=== PATIENT | male | born 1965 | race Caucasian/White ===

== ENCOUNTER 2024-01-27 10:14 | Outpatient (OUT) | payer OTHER, SELFPAY ==
[2024-01-27 11:47] LABS: Prostate Specific Antigen Scrn 2.13 ng/mL (<=4.00)
== END 2024-01-27 10:15 | disposition home or self-care (01) ==
LOC: LAB 10:14
PROVIDERS: PCP Internal Medicine; Visit Provider Urology
DX: Z12.5 Encounter for screening for malignant neoplasm of prostate (principal)
CPT/HCPCS: 36415; G0103

== ENCOUNTER 2024-02-17 08:55 | Outpatient (OUT) | payer OTHER, SELFPAY ==
--- NOTE | 2024-02-17 08:57 | ECG_ITS ---
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
--- NOTE | 2024-02-17 08:57 | XR_ITS ---
The [address] [address] Patient Name: VENITA HOFFMAN MRN: [id number] date: 1965 Sex: M Assigned Patient Location: [facility] Current Patient Location: [facility] Accession/Order Number: [id number] Exam Date: 02/17/2024 09:28 Report Date: 02/17/2024 11:14 At the request of: JARAD VALDIVIA Procedure: XR chest 2V EXAMINATION: XR chest 2V HISTORY: Preop exam COMPARISON: No relevant comparison available. FINDINGS: LUNGS: Hyperexpanded lungs. No appreciable infiltrates or mass. VASCULATURE: No increased pulmonary vasculature. PLEURA: No pneumothorax, effusion, or pleural thickening. CARDIAC: No cardiomegaly or cardiac silhouette abnormality. MEDIASTINUM: No visible mass or adenopathy. BONES: Mild kyphosis. No fracture or visible bone lesion. OTHER: Negative. XR/XR chest 2V IMPRESSION: 1. No acute cardiopulmonary process. Electronically authenticated by: GRISEL THOMAS Date: 02/17/2024 11:14
--- OUTSIDE RECORDS SUMMARY | 2024-02-17 09:08 | XMS_ITS | CCD ---
Author Organization [facility] Care Team Providers Care Business Analytics Analyst Name Role Phone Parth García Primary Care Provider [phone] PARTH GARCÍA Primary Care Unavailable OLEKSANDR HOOVER Attending Unavailable PARTH GARCÍA Primary Care Unavailable VENITA CONWAY Attending Unavailable BG HUMPHREY Admitting Unavailable BG HUMPHREY Attending Unavailable PARTH GARCÍA Primary Care Unavailable PARTH GARCÍA Primary Care Physician [phone] KERRI García Primary Care Provider [phone] MD Jarad Paulson Attending Provider Jarad Paulson Attending Unavailable Jarad Paulson Admitting Unavailable Parth García Primary Care Unavailable RICKY, DR CASTANON Primary Care Unavailable PAULSON ., DR ABRAHAM Attending Unavailable PAULSON ., DR ABRAHAM Consulting Unavailable PAULSON ., DR ABRAHAM Admitting Unavailable ROSARIO, ELIAS Consulting Unavailable RICKY, DR CASTANON Admitting Unavailable RICKY, DR CASTANON Attending Unavailable RICKY, DR CASTANON Consulting Unavailable RICKY, DR CASTANON Primary Care Unavailable ZIEBER, DR GRISEL Hendrickson Consulting Unavailable GARCÍA, DR CASTANON Primary Care Unavailable PAULSON ., DR ABRAHAM Attending Unavailable PAULSON ., DR ABRAHAM Consulting Unavailable PAULSON ., DR ABRAHAM Admapple Unavailable RICKY, DR CASTANON Primary Care Unavailable PAY ., DR TERRY Attending Unavailable PAY ., DR TERRY Admitting Unavailable ZIEBJACK, DR GRISEL Hendrickson Consulting Unavailable PAY ., DR TERRY Consulting Unavailable RICKY, DR CASTANON Primary Care Unavailable PAULSON ., DR ABRAHAM Attending Unavailable PAULSON ., DR ABRAHAM Consulting Unavailable PAULSON ., DR ABRAHAM Admitting Unavailable GALLAGHER, TARAH Consulting Unavailable RICKY, DR CASTANON Primary Care Unavailable PAULSON ., DR ABRAHAM Attending Unavailable PAULSON ., DR ABRAHAM Consulting Unavailable PAULSON ., DR ABRAHAM Admitting Unavailable GRIFFIN IITOM Consulting Unavailable YOUSUF FAGAN Consulting Unavailable FloryBrandy Unavailable Jarad PAULSON Attending Unavailable Jarad PAULSON Admitting Unavailable SHEA, Jarad Hendrickson Attending Unavailable SHEA, Jarad Hendrickson Attending Unavailable SHEA, Jarad Hendrickson Attending Unavailable SHEA, Jarad Hendrickson Attending Unavailable SHEA, Jarad Hendrickson Attending Unavailable Allergies Allergy Classification Reported Allergen(s) Allergy Type Date of Onset Reaction(s) Facility (1 source) corn extract Drug Allergy [facility] Repository (1 source) No Known Medication Allergies; Translations: [No Known Medication Allergies] Propensity to adverse reactions (disorder) [facility] Repository Medications Current Medications Medication Drug Class(es) Dates Sig (Normalized) Sig (Original) acetaminophen 325 mg / HYDROcodone bitartrate 5 mg oral tablet (2 sources) Opioid Agonist Start: 05-16-2019 End: 05-21-2019 take 1 tablet by mouth every six hours as needed for pain and pain, then take 2 tablets by mouth every six hours as needed for pain and pain HYDROcodone-acetami nophen (NORCO) 5-325 MG per tablet Indications: Calculus of gallbladder with cholecystitis without biliary obstruction, unspecified cholecystitis acuity Take 1 tablet by mouth every 6 hours as needed for Pain for up to 5 days. May take up to 2 tablets po every 6 hours as needed for pain. 20 tablet 0 05/16/2019 05/21/2019 Active Start: 05-16-2019 HYDROcodone-ac etaminophen (NORCO) 5-325 MG per tablet 1 tablet 24 hr alfuzosin hydrochloride 10 mg extended release oral tablet (2 sources) alpha-Adrenergic Nasrin Start: 02-03-2024 take 1 tablet by mouth once daily alfuzosin 10 mg ER Tab 10 mg = 1 tab(s), Oral, Daily, # 30 tab(s), Refills(s) 11, Pharmacy: [facility] #[id number], 180, cm, 02/03/24 8:10:00 EDT, Height/Length Dosing, 59, kg, 02/03/24 8:10:00 EDT, Weight Dosing Start Date: 02/03/24 Status: Ordered calcium chloride 0.0014 meq/ml / potassium chloride 0.004 meq/ml / sodium chloride 0.103 meq/ml / sodium lactate 0.028 meq/ml injectable solution (3 sources) Start: 05-16-2019 lactated ringers infusion 2 ml fentaNYL 0.05 mg/ml injection (2 sources) Opioid Agonist Start: 05-16-2019 fentaNYL (SUBLIMAZE) injection 50 mcg Start: 05-16-2019 fentaNYL (SUBL IMAZE) injection 25 mcg 2 ml metoclopramide 5 mg/ml prefilled syringe (1 source) Dopamine-2 Receptor Antagonist Start: 05-16-2019 End: 05-16-2019 metoclopramide (REGLAN) injection 10 mg 30 ml morphine sulfate 1 mg/ml injection (1 source) Opioid Agonist Start: 05-16-2019 morphine (PF) injection 1 mg 2 ml ondansetron 2 mg/ml injection (2 sources) Serotonin-3 Receptor Antagonist Start: 05-16-2019 End: 05-16-2019 ondansetron (ZOFRAN) injection 4 mg oxyCODONE hydrochloride 5 mg oral tablet (1 source) Opioid Agonist Start: 05-16-2019 End: 05-16-2019 oxyCODONE (ROXICODONE) immediate release tablet 5 mg predniSONE 20 mg oral tablet (1 source) Start: 05-15-2023 take 1 tablet by mouth every twelve hours predniSONE 20 MG 1 tablet Orally bid for 5 day(s) Apr, Active 3 ml sodium chloride 9 mg/ml injection (8 sources) Start: 05-16-2019 sodium chloride flush 0.9 % injection 10 mL sulfamethoxazole 800 mg / trimethoprim 160 mg oral tablet (2 sources) Dihydrofolate Reductase Inhibitor Antibacterial, Sulfonamide Antimicrobial Start: 02-03-2024 End: 02-17-2024 Bactrim D.S. 800 mg-160 mg Tab 1 tab(s), Oral, BID for 2 week(s), 28 tab(s), Refill(s) 0, [facility] #[id number], 180, cm, 02/03/24 8:10:00 EDT, Height/Length Dosing, 59, kg, 02/03/24 8:10:00 EDT, Weight Dosing Start Date: 02/03/24 Stop Date: 02/17/24 Status: Ordered Completed/Discontinued Medications Medication Drug Class(es) Dates Sig (Normalized) Sig (Original) acetaminophen 325 mg oral tablet (1 source) Start: 05-16-2019 End: 05-16-2019 acetaminophen (TYLENOL) tablet 650 mg ceFAZolin (ANCEF) 2 g in dextrose 5 % 100 mL IVPB (1 source) Start: 05-16-2019 End: 05-16-2019 ceFAZolin (ANCEF) 2 g in dextrose 5 % 100 mL IVPB ciprofloxacin 500 mg oral tablet (4 sources) Quinolone Antimicrobial Start: 01-12-2024 take 1 tablet by mouth once daily Cipro 500 mg Tab 500 mg = 1 tab(s), Oral, Daily, Take 1 tablet the day before the procedure and 1 tablet after the procedure, # 2 tab(s), Refills(s) 0, Pharmacy: [facility] #[id number], 180, cm, 01/07/23 8:59:00 EDT, Height/Length Dosing, 59, kg, 01/07/23 8:59:00 EDT, Weight Dosing Start Date: 01/12/24 Status: Ordered Start: 10-07-2022 take 1 tablet by greer th once daily Cipro 500 mg Tab 500 mg = 1 tab(s), Oral, Daily, Take 1 tablet the day before the procedure and 1 tablet after the procedure, # 2 tab(s), Refills(s) 0, Pharmacy: [facility] #[id number] Start Date: 10/07/22 Status: Ordered Start: 05-16-2019 End: 05-23-2019 take 1 tablet by mouth twice daily ciprofloxacin (CIPRO) 500 MG tablet Take 1 tablet by mouth 2 times daily for 7 days 14 tablet 0 05/16/2019 05/23/2019 Active dimenhyDRINATE 50 mg oral tablet (1 source) Start: 05-16-2019 End: 05-16-2019 dimenhyDRINATE (DRAMAMINE) tablet 50 mg indocyanine green (IC-GREEN) syringe 7.5 mg (1 source) Start: 05-16-2019 End: 05-16-2019 indocyanine green (IC-GREEN) syringe 7.5 mg 100 ml levoFLOXacin 5 mg/ml injection (1 source) Quinolone Antimicrobial Start: 05-16-2019 End: 05-16-2019 levofloxacin (LEVAQUIN) 500 MG/100ML infusion 500 mg triamcinolone acetonide 40 mg/ml injectable suspension (1 source) Corticosteroid Start: 05-15-2023 Kenalog-40 Apr, 40 mg Problems Active Problems Problem Classification Problem Date Documented Da te Episodic/Chronic Abdominal pain (1 source) Unspecified abdominal pain; Translations: [UNSPECIFIED ABDOMINAL PAIN] Onset: 02-15-2023 Episodic Biliary tract disease (2 sources) Calculus of gallbladder with cholecystitis; Translations: [Biliary calculus] Onset: 05-16-2019 05-16-2019 Episodic Calculus of urinary tract (3 sources) Kidney stone; Translations: [Calculus of kidney] Onset: 02-03-2024 Episodic Cancer of bladder (3 sources) Malignant tumor of urinary bladder; Translations: [Malignant neoplasm of bladder, unspecified] Onset: 02-03-2024 Chronic Cancer of bladder (8 sources) History of malignant neoplasm of bladder; Translations: [Personal history of malignant neoplasm of bladder] Onset: 10-22-2022 Episodic Cancer; other and unspecified primary (5 sources) H/O: malignant neoplasm 08-03-2019 Episodic Genitourinary congenital anomalies (3 sources) Double ureter; 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] Onset: 02-03-2024 Chronic Genitourinary symptoms and ill-defined conditions (12 sources) Microscopic hematuria; Translations: [Asymptomatic microscopic hematuria] Onset: 12-24-2022 08-03-2019 Episodic Hyperplasia of prostate (20 sources) Benign prostatic hypertrophy with outflow obstruction; Translations: [Prostate nodule] Onset: 10-15-2022 08-03-2019 Chronic Nausea and vomiting (4 sources) Nausea; Translations: [NAUSEA] Onset: 02-11-2023 Episodic Nephritis; nephrosis; renal sclerosis (3 sources) Atrophy of kidney; Translations: [Atrophy of kidney (terminal)] Onset: 02-03-2024 Chronic Other aftercare (1 source) Other tank builder and erector (current) drug therapy; Translations: [OTH PERSONAL DEVELOPMENT EDUCATOR CURRENT DRUG THERAPY] Onset: 02-15-2023 Episodic Other screening for suspected conditions (not mental disorders or infectious disease) (9 sources) Elevated prostate specific antigen [PSA]; Translations: [Raised prostate specific antigen] Onset: 12-03-2022 Episodic Poisoning by nonmedicinal substances (1 source) Toxic effect of venom of bees, undetermined, initial encounter Episodic Screening and history of mental health and substance abuse codes (1 source) Personal history of nicotine dependence; Translations: [PERSONAL HISTORY OF NICOTINE DEPEND] Onset: 02-22-2023 Episodic Unclassified (3 sources) Asymptomatic microscopic hematuria 01-06-2023 Urinary tract infections (1 source) Cystitis, unspecified without hematuria; Translations: [CYSTITIS UNS WITHOUT HEMATURIA] Onset: 02-15-2023 Episodic Past or Other Problems Problem Classification Problem Date Documented Da te Episodic/Chronic Other non-traumatic joint disorders (4 sources) Pain in left shoulder; Translations: [PAIN IN LEFT SHOULDER] Onset: 11-15-2022 Episodic Results Test Name Value Interpretation Reference Range Facil ity UroVysion Fish and Urine Cyt o ([facility])on 02-10-2024 UVFISH & UC Diagnosis Info Invalid Interpretation Code [facility] Comment on above: Result Comment: A:Ur ine,Urine:Voided Diagnosis Summary - Diagnosis Summary - The UroVysion FISH study detected a positive profile. UroVysion FISH evaluates chromosomes 3, 7, 17, and 9p21 for aneuploid and deletion events associated with urothelial cell carcinoma. 117 cells were analyzed in this evaluation. Evidence of aneuploidy in at least 76 cells were found. These findings should be correlated with cytology and cystoscopy results.* Microscopic Notes - Microscopic Notes - Abnormal cells 9p21 deletions: 0 Abnormal cells aneploid events: 76 Total cells analyzed: 117 Hematuria: Gross Description Site ID:A color dark Yellow fixative Alcohol Received 110 mls of clear dark yellow fluid with the patient's name and, Urine on the vial. Electronically signed by : on: 02/10/2024 12:29:57 Performed By: #### 1 [id number] #### [facility] [address] [place] [address] Consent for Procedure/Surger yon 02-08-2024 Consent for Procedure/Surgery [id number] 5#[id number] Normal [facility] Ambulatory Visit Summaryon 0 02-03-2024 Ambulatory Visit Summary VENITA ROSENBERG :1965 Visit Date:02/03/2024 Ambulatory Visit Instructions Your Diagnosis Bladder cancer Elevated PSA BPH with urinary obstruction Prostate nodule Kidney stone Renal atrophy Duplicated renal collecting system Tests Performed MRI Pelvis (Soft Tissue) w/ + w/o contrast -- Results Pending -- Please visit your patient portal for your results or contact your primary care physician. Your Care Team Attending Physician - SHEA JARA, Jarad Hendrickson Primary Care Physician - PARTH GARCÍA MD This Is Your Medications List alfuzosin (alfuzosin 10 mg ER Tab) sulfamethoxazole-tri methoprim (Bactrim D.S. 800 mg-160 mg Tab) Contact prescribing physician if questions or concerns ciprofloxacin (Cipro 500 mg Tab) Procedures Performed Flexible cystoscopy (02/03/2024), Transrectal needle biopsy of prostate (12/22/2022), Cystoscopy (10/22/2022), Cystoscopy (10/23/2021), Cystoscopy (09/10/2020), Cystoscopy (09/25/2019), Cystoscopy (09/05/2018), Transrectal biopsy of prostate using ultrasound (US) guidance (08/19/2015), Cystoscopic removal of ureteric stent (05/30/2012), Cystoscopy and transurethral resection of bladder tumour (05/18/2012). Discharge Vitals Heart Rate (Peripheral) 88 Blood Pressure 126/86 Height 180 cm Height 71 in Weight 59 kg Weight 129.8 lb BMI 18.21 What to do next Scheduled Follow-Up Appointments Tuesday 9:00 AM EDT With: Where: [facility] [address] [place] [address]- \.br\ You Need to Schedule the Following Appointments\.br \ Follow Up with SHEA JARA, Jarad Hendrickson, URL When: \.br\ Where:\.br\ [facility]\.br\ [place] [address]-\.br\ Medications\.br\ What How Much When Instructions\.br \ New alfuzosin (alfuzosin 10 mg ER Tab) 1 Tablets By Mouth Every day Refills: 11 Pickup at [facility] #[id number]\.br\ New sulfamethoxazole -trimethoprim (Bactrim D.S. 800 mg-160 mg Tab) 1 Tablets By Mouth 2 times a day Duration: 2 Weeks Pickup at [facility] #[id number]\.br\ Unchanged ciprofloxacin (Cipro 500 mg Tab) 1 Tablets By Mouth Every day Take 1 tablet the day before the procedure and 1 tablet after the procedure Contact prescribing physician if questions or concerns \.br\ Pharmacy Information\.br\ [facility] #[id number]: [address] [place], [place] [id number] [phone]\.br\ Medications and Immunizations Administered\.br \ Given\.br\ lidocaine Top 2% Gel w/Appl 6 mL, 6 mL, Topical. For:\.br\ Allergies\.br\ No Known Medication Allergies\.br\ Problems\.br\ Ongoing - Any problem that you are currently receiving treatment for.\.br\ Asymptomatic microscopic hematuria\.br\ Bladder cancer\.br\ BPH with urinary obstruction\.br\ Duplicated renal collecting system\.br\ Elevated PSA\.br\ Enlarged prostate with urinary obstruction\.br\ Kidney stone\.br\ Microscopic hematuria\.br\ Personal history of bladder cancer\.br\ Prostate nodule\.br\ Renal atrophy\.br\ Patient Survey\.br\ You may receive a survey via text or e-mail asking about your office visit. Please share your experience with us by completing your survey. We appreciate your feedback and thank you for choosing us for your care.\.br\ Education Materials\.br\ Transurethral Resection of Bladder Tumor\.br\ \.br\ Transurethral resection of a bladder tumor is the removal (resection) of cancerous tissue (tumor) from the inside wall of the bladder. The bladder is the organ that holds urine. The tumor is removed through the tube that carries urine out of the body (urethra).\.br\ In a transurethral resection, a thin telescope with a light, a tiny camera, and an electric cutting edge (resectoscope) is passed through the urethra. In men, the opening of the urethra is at the end of the penis. In women, it is just above the opening of the vagina.\.br\ Tell a health care provider about:\.br\ ? \.br\ Any allergies you have.\.br\ ? \.br\ All medicines you are taking, including vitamins, herbs, eye drops, creams, and nyou-oas-gmahlju medicines.\.br\ ? \.br\ Any problems you or family members have had with anesthetic medicines.\.br\ ? \.br\ Any bleeding problems you have.\.br\ ? \.br\ Any surgeries you have had.\.br\ ? \.br\ Any medical conditions you have, including recent urinary tract infections.\.br\ ? \.br\ Whether you are or may be .\.br\ What are the risks?\.br\ Generally, this is a safe procedure. However, problems may occur, including:\.br\ ? \.br\ Infection.\.br\ ? \.br\ Bleeding.\.br\ ? \.br\ Allergic reactions to medicines.\.br\ ? \.br\ Damage to nearby structures or organs.\.br\ ? \.br\ Difficulty urinating from blockage of the urethra or not being able to urinate (urinary retention).\.br\ ? \.br\ Deep vein thrombosis. This is a blood clot that can develop in your leg.\.br\ ? \.br\ Recurring cancer.\.br\ What happens before the procedure?\.br\ When to stop eating and drinking\.br\ Follow instructions from your health care provider about what you may eat and drink before your procedure. These may include:\.br\ ? \.br\ 8 hours before your procedure\.br\ ? \.br\ Stop eating most foods. Do not eat meat, fried foods, or fatty foods.\.br\ ? \.br\ Eat only light foods, such as toast or crackers.\.br\ ? \.br\ All liquids are okay except energy drinks and alcohol.\.br\ ? \.br\ 6 hours before your procedure\.br\ ? \.br\ Stop eating.\.br\ ? \.br\ Drink only clear liquids, such as water, clear fruit juice, black coffee, plain tea, and sports drinks.\.br\ ? \.br\ Do not drink energy drinks or alcohol.\.br\ ? \.br\ 2 hours before your procedure\.br\ ? \.br\ Stop drinking all liquids.\.br\ ? \.br\ You may be allowed to take medicines with small sips of water.\.br\ Medicines\.br\ Ask your health care provider about:\.br\ ? \.br\ Changing or stopping your regular medicines. This is especially important if you are taking diabetes medicines or blood thinners.\.br\ ? \.br\ Taking medicines such as aspirin and ibuprofen. These medicines can thin your blood. Do not take these medicines unless your health care provider tells you to take them.\.br\ ? \.br\ Taking cqsq-wym-mtuktry medicines, vitamins, herbs, and supplements.\.br \ General instructions\.br \ ? \.br\ If you will be going home right after the procedure, plan to have a responsible adult:\.br\ ? \.br\ Take you home from the hospital or clinic. You will not be allowed to drive.\.br\ ? \.br\ Care for you for the time you are told.\.br\ ? \.br\ Ask your health care provider what steps will be taken to help prevent infection. These steps may include:\.br\ ? \.br\ Washing skin with a germ-killing soap.\.br\ ? \.br\ Taking antibiotic medicine.\.br\ ? \.br\ Do not use any products that contain nicotine or tobacco for at least 4 weeks before the procedure. These products include cigarettes, chewing tobacco, and vaping devices, such as e-cigarettes. If you need help quitting, ask your health care provider.\.br\ What happens during the procedure?\.br\ ? \.br\ An IV will be inserted into one of your veins.\.br\ ? \.br\ You will be given one or more of the following:\.br\ ? \.br\ A medicine to help you relax (sedative).\.br\ ? \.br\ A medicine that is injected into your spine to numb the area below and slightly above the injection site (spinal anesthetic).\.br \ ? \.br\ A medicine that is injected into an area of your body to numb everything below the injection site (regional anesthetic).\.br \ ? \.br\ A medicine to make you fall asleep (general anesthetic).\.br \ ? \.br\ Your legs will be placed in foot rests (stirrups) to open your legs and bend your knees.\.br\ ? \.br\ The resectoscope will be passed through your urethra and into your bladder.\.br\ ? \.br\ The part of your bladder with the tumor will be resected by the cutting edge of the resectoscope.\.b r\ ? \.br\ Fluid will be passed to rinse out the cut tissues (irrigation).\.b r\ ? \.br\ The resectoscope will then be taken out.\.br\ ? \.br\ A small, thin tube (catheter) will be passed through your urethra and into your bladder. The catheter will drain urine into a bag outside of your body.\.br\ The procedure may vary among health care providers and hospitals.\.br\ What happens after the procedure?\.br\ ? \.br\ Your blood pressure, heart rate, breathing rate, and blood oxygen level will be monitored until you leave the hospital or clinic.\.br\ ? \.br\ You may continue to receive fluids and medicines through an IV.\.br\ ? \.br\ You will be given pain medicine to relieve pain.\.br\ ? \.br\ You will have a catheter to drain your urine.\.br\ ? \.br\ The amount of urine will be measured. If you have blood in your urine, your bladder may be rinsed out by passing fluid through your catheter.\.br\ [facility] Consent for Procedure/Surger yon 02-03-2024 Consent for Procedure/Surgery [id number] 1.00TIFF Normal [facility] Insurance Correspondenceon 0 02-03-2024 Insurance Correspondence [id number] 9#1.00TIFF Normal [facility] Patient Educationon 02-03-20 Patient Education Oncology Transurethral Resection of Bladder Tumor Transurethral resection of a bladder tumor is the removal (resection) of cancerous tissue (tumor) from the inside wall of the bladder. The bladder is the organ that holds urine. The tumor is removed through the tube that carries urine out of the body (urethra). In a transurethral resection, a thin telescope with a light, a tiny camera, and an electric cutting edge (resectoscope) is passed through the urethra. In men, the opening of the urethra is at the end of the penis. In women, it is just above the opening of the vagina. Tell a health care provider about: ? Any allergies you have. ? All medicines you are taking, including vitamins, herbs, eye drops, creams, and kqst-leh-cdebvjn medicines. ? Any problems you or family members have had with anesthetic medicines. ? Any bleeding problems you have. ? Any surgeries you have had. ? Any medical conditions you have, including recent urinary tract infections. ? Whether you are or may be . What are the risks? Generally, this is a safe procedure. However, problems may occur, including: ? Infection. ? Bleeding. ? Allergic reactions to medicines. ? Damage to nearby structures or organs. ? Difficulty urinating from blockage of the urethra or not being able to urinate (urinary retention). ? Deep vein thrombosis. This is a blood clot that can develop in your leg. ? Recurring cancer. What happens before the procedure? When to stop eating and drinking Follow instructions from your health care provider about what you may eat and drink before your procedure. These may include: ? 8 hours before your procedure ? Stop eating most foods. Do not eat meat, fried foods, or fatty foods. ? Eat only light foods, such as toast or crackers. ? All liquids are okay except energy drinks and alcohol. ? 6 hours before your procedure ? Stop eating. ? Drink only clear liquids, such as water, clear fruit juice, black coffee, plain tea, and sports drinks. ? Do not drink energy drinks or alcohol. ? 2 hours before your procedure ? Stop drinking all liquids. ? You may be allowed to take medicines with small sips of water. Medicines Ask your health care provider about: ? Changing or stopping your regular medicines. This is especially important if you are taking diabetes medicines or blood thinners. ? Taking medicines such as aspirin and ibuprofen. These medicines can thin your blood. Do not take these medicines unless your health care provider tells you to take them. ? Taking bplt-gkw-lqhbzqc medicines, vitamins, herbs, and supplements. General instructions ? If you will be going home right after the procedure, plan to have a responsible adult: ? Take you home from the hospital or clinic. You will not be allowed to drive. ? Care for you for the time you are told. ? Ask your health care provider what steps will be taken to help prevent infection. These steps may include: ? Washing skin with a germ-killing soap. ? Taking antibiotic medicine. ? Do not use any products that contain nicotine or tobacco for at least 4 weeks before the procedure. These products include cigarettes, chewing tobacco, and vaping devices, such as e-cigarettes. If you need help quitting, ask your health care provider. What happens during the procedure? ? An IV will be inserted into one of your veins. ? You will be given one or more of the following: ? A medicine to help you relax (sedative). ? A medicine that is injected into your spine to numb the area below and slightly above the injection site (spinal anesthetic). ? A medicine that is injected into an area of your body to numb everything below the injection site (regional anesthetic). ? A medicine to make you fall asleep (general anesthetic). ? Your legs will be placed in foot rests (stirrups) to open your legs and bend your knees. ? The resectoscope will be passed through your urethra and into your bladder. ? The part of your bladder with the tumor will be resected by the cutting edge of the resectoscope. ? Fluid will be passed to rinse out the cut tissues (irrigation). ? The resectoscope will then be taken out. ? A small, thin tube (catheter) will be passed through your urethra and into your bladder. The catheter will drain urine into a bag outside of your body. The procedure may vary among health care providers and hospitals. What happens after the procedure? ? Your blood pressure, heart rate, breathing rate, and blood oxygen level will be monitored until you leave the hospital or clinic. ? You may continue to receive fluids and medicines through an IV. ? You will be given pain medicine to relieve pain. ? You will have a catheter to drain your urine. ? The amount of urine will be measured. If you have blood in your urine, your bladder may be rinsed out by passing fluid through your catheter. ? You will be encouraged to walk as soon as y (more content not included)... Normal [facility] UroVysion Fish and Urine Cyt o ([facility])on 02-03-2024 [facility] Method of Extraction Voided Normal [facility] Comment on above: Performed By: #### 1 [id number] #### [facility] Laboratory [address] [place] [address] [facility] Number of Jars 1 Invalid Interpretation Code [facility] Comment on above: Performed By: #### 1 [id number] #### [facility] Laboratory [address] [place] [address] [facility] Specimen Urine Normal [facility] Comment on above: Performed By: #### 1 [id number] #### [facility] Laboratory [address] [place] [address] [facility] Type of Service Technical Only Normal [facility] Comment on above: Performed By: #### 1 [id number] #### [facility] Laboratory [address] [place] [address] Urology Office/Clinic Noteon 02-03-2024 Urology Office/Clinic Note Chief Complaint Cysto HPI Staff Cystoscopy with FISH/Cytology. Abx taken Dx: personal hx of bladder cancer, prostate nodule, elevated PSA and asymptomatic microhematuria History of Present Illness Tests reviewed: Reviewed PSA. I have reviewed the previous health record information and history for this patient from Dr. Paulson. I have reviewed and verified the staff HPI to be accurate for this encounter. There have been no associated fever, chills, flank pain, or blood in the urine. Denies any urinary infections since last encounter. Review of Systems PHQ Score Initial Depression Screen Score: 0 SCORE ROS - Provider Constitutional: denies weight loss, denies hot flashes. Eyes: denies eye problems. Gastrointestinal: denies nausea, denies vomiting. Cardiovascular: denies chest pain or angina. Integumentary: no dryness Musculoskeletal: denies musculoskeletal symptoms. ENMT: denies otolaryngeal symptoms. Respiratory: no shortness of breath. Heme/Lymph: denies easy bleeding tendency, denies easy bruising tendency. Psychiatric: no confusion, no anxiety. Genitourinary: See HPI. Physical Exam Vitals & Measurements HR: 88(Peripheral) BP: 126/86 HT: 71 in HT: 180 cm WT: 59 kg WT: 129.8 lb BMI: 18.21 General Appearance: alert, no distress, well nourished, well developed male. Prostate: estimated weight 35 gms, bonafide nodule at the R base to mid. Procedure Operative Information Anesthesia Type: Local Procedure: Local Cystoscopy Complications: None Surgical risks, benefits, details of the procedure have been explained to the patient. Full informed consent has been obtained. Intraoperative Information Prepped: Patient is brought back to the endoscopy suite. Patient is placed in supine position. Patient prepped in the usual fashion with Betadine solution. 2% Xylocaine Jelly is placed per Urethra. After waiting several minutes, the Cystoscope is introduced. The Urethra is: Normal The Prostatic Urethra is: bilobar obstruction. The Bladder: diffuse irritation, retroflexion tumor adjacent to the bladder neck on pt's ride side, measuring 2-3 cm., Trabeculated: None (0) The Ureteral orifices: Show efflux of clear urine. Specimens Removed: Voided specimen sent for FISH and Cytology test Removal: Cystoscope is removed. The patient tolerated it well. Postoperative Information Patient is discharged home with antibiotic coverage. Follow up arranged. Assessment/Plan 1. Bladder cancer (C67.9: Malignant neoplasm of bladder, unspecified) Uncle has hx of bladder and colon CA. Dx w/ Barker Syndrome. S/p initial TURBT 05/18/2012. 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 Detrusor muscle is present and neg for involvement by tumor. Last Cysto 10/22/22 neg for recurrence. FISH/cytology 09/2022 - cytology suspicious for papillary urothelial neoplasm. FISH positive. CT AP wo IV con 12/24/22 [facility] - Mild circumferential thickened and trabeculated appearance of the urinary bladder wall presumably related to the chronic urinary bladder outlet obstruction in combination with partial distention. S/p cysto, rigid L ureteral dilation, L urs, L pyeloscopy, L renal wash for cytology, R rigid ureteral dilation, R urs, R pyeloscopy, and R renal wash for cytology 02/10/23. Renal washings neg. Cysto IO today without complications. Voided specimen sent for FISH/cytology. Pt to complete prophy abx. Reference procedural section for findings. -Will schedule Cysto with TURBT. The procedure risks, benefits, details, and treatment alternatives have been discussed with the patient. These include bleeding -- sometimes to the point of hemorrhaging, infection, risk of bladder perforation, recurrence of bladder tumor in 60-70% of patients, need for indwelling catheter for a variable amount of time, as well as the rare risk of needing an open operation to repair the bladder, among others. Additional therapy as well as follow-up bladder evaluation will most likely be required. Full informed consent has been obtained. Will order General anesthesia. 2. Elevated PSA (R97.20: Elevated prostate specific antigen [PSA]) PSA: 10/16/21 - 1.86 10/15/22 - 1.73 01/27/24 - 2.13 TRUS/bx 2014. MRI of prostate 12/03/22 PI-RADS 4 and PI-RADS 5 lesions. TRUS/bx 12/22/22 neg. Given rise in PSA, will repeat MRI of prostate. Will proceed with TRUS/bx following MRI. -Schedule MRI of prostate -Will schedule TRUS of Prostate with Biopsy, possible fusion under MAC pending MRI. The procedural risks, benefits, details, and treatment alternatives have been discussed with the patient. These include minimal to severe bleeding, infection, blood in the semen, inability to urinate, and severe infection requiring hospitalization and IV antibiotics, among others. Full informed consent has been obtained. Will order Local anesthesia. 3. BPH with urinary obstruction (N40.1: Benign prostatic hyperplasia with lower urinary tract symptoms) Complaints of weak s (more content not included)... Normal [facility] Comment on above: Result Comment: Elec tronically Signed By: Jarad PAULSON MD\.br\Date and Time Signed: 02/03/24 08:45 EDT\.br\Electronically Co-Signed By: Leonie Garcia\.br\Date and Time Co-Signed: 02/03/24 08:41 EDT Lab Reportson 01-30-2024 Lab Reports [id number] #1.00TIFF [facility] Reminderson 01-12-2024 Reminders - From: Anna Sigala To: LEENA Paulson; Sent: 01/12/2024 10:49:46 EDT Show up: 10/27/2024 10:49:00 EST Subject: Cysto/fish/cytol/psa /chani Due Date/Time: 11/19/2024 10:49:00 EST Reminder/Recall Patient is due in January 2025 for 1 year cysto/fish/cytol/PSA /chani (bt ck) [facility] Reminders - From: Anna Sigala To: EU - Recalls Paulson; Cc: Anna Sigala; Sent: 03/07/2023 09:57:33 EDT Show up: 12/26/2023 09:57:00 EDT Subject: Cysto/FISH/cytol Due Date/Time: 01/16/2024 09:57:00 EDT Reminder/Recall Patient is due in January 2024 for 1 year cysto/fish/cytol/PSA /CHANI (bt ck) l/m on cell vm.LG Patient called back, sched for 02/07/24 in [place] office.LG Normal [facility] Pathology Noteon 02-17-2023 Pathology Note [id number] #1.00CD:127 Normal [facility] CBC W MANUAL DIFFon 02-12-20 23 ATYPICAL LYMPH # Normal [facility] Comment on above: Performed By: #### C MONSTER ####[facility] [address] [place], [place] [address]Dr. Yordan Holt ATYPICAL LYMPH % Normal [facility] Comment on above: Performed By: #### C MONSTER ####[facility] [address] [place], [place] [address]Dr. Erikalan Holt BAND # Normal 0.0-0.3 [facility] Comment on above: Performed By: #### C MONSTER ####[facility] [address] [place] [address]Dr. Yilan Holt BAND % Normal 0-5 [facility] Comment on above: Performed By: #### C MONSTER ####[facility] [address] [place] [address]Dr. Erikalan Holt BASOM # 0.00 103/ul Normal 0.00-0.10 [facility] Comment on above: Performed By: #### C MONSTER ####[facility] [address] [place] [address]Dr. Yordan Holt BASOM % 0.0 % Critically low 0.2-2.0 The [facility] Comment on above: Performed By: #### C MONSTER ####[facility] [address] [place] [id number]. Yordan Holt BLAST # Normal [facility] Comment on above: Performed By: #### C BCMAN ####[facility] [address] [place] [id number]. Yordan Holt BLAST % Normal [facility] Comment on above: Performed By: #### C BCMAN ####[facility] [address] [place] [address]Dr. Yordan Holt CORRECTED WBC Normal 4.0-11.0 [facility] Comment on above: Performed By: #### C BCSARINA ####[facility] [address] [place] [address]Dr. Yordan Holt EOS # 0.00 103/ul Normal 0.00-0.70 [facility] Comment on above: Performed By: #### C BCSARINA ####[facility] [address] [place], [place] [address]Dr. Yordan Holt EOS% 0.0 % Critically low 0.9-7.0 [facility] Comment on above: Performed By: #### C BCSARINA ####[facility] [address] [place], [place] [address]Dr. Yordan Holt HCT 46.7 % Normal 42.0-54.0 [facility] Comment on above: Performed By: #### C BCSARINA ####[facility] [address] [place], [place] [address]Dr. Yordan Holt HGB 16.3 g/dl Normal 14.0-18.0 [facility] Comment on above: Performed By: #### C BCSARINA ####[facility] [address] [place], [place] [address]Dr. Yordan Holt LYMPHM # 0.53 103/ul Critically low 1.20-3.80 The [facility] Comment on above: Performed By: #### C BCSARINA ####[facility] [address] [place], [place] [address]Dr. Yordan Holt LYMPHM% 4.0 % Critically low 20.5-60.0 [facility] Comment on above: Performed By: #### C MONSTER ####[facility] [address] [place] [id number]. Yordan Holt MCH 30.9 pg Normal 25.9-34.0 [facility] Comment on above: Performed By: #### C MONSTER ####[facility] [address] [place], [place] [address]Oz. Yordan Holt MCHC 34.9 g/dl Normal 29.9-35.2 [facility] Comment on above: Performed By: #### C MONSTER ####[facility] [address] [place] [id number]. Yordan Holt MCV 88.6 fL Normal 80.0-94.0 [facility] Comment on above: Performed By: #### C MONSTER ####[facility] [address] [place] [id number]. Yordan Jonathon METAMYELOCYTE # Normal [facility] Comment on above: Performed By: #### C MONSTER ####[facility] [address] [place] [id number]. Yordan Holt METAMYELOCYTE % Normal [facility] Comment on above: Performed By: #### C MONSTER ####[facility] [address] [place] [id number]. Erikaperry Holt MONOM# 0.53 103/ul Normal 0.30-0.80 [facility] Comment on above: Performed By: #### Anat HOOK ####[facility] [address] [place] [id number]. Yordan Holt MONOM% 4.0 % Normal 1.7-12.0 [facility] Comment on above: Performed By: #### C MONSTER ####[facility] [address] [place], [place] [id number]. Yordan Holt MPV 9.2 fL Critically low 9.5-13.5 The [facility] Comment on above: Performed By: #### C MONSTER ####[facility] [address] [place] [address]Dr. Yordan Holt MYELOCYTE # Normal [facility] Comment on above: Performed By: #### C MONSTER ####[facility] [address] [place], [place] [address]Zl. Yordan Holt MYELOCYTE % Normal [facility] Comment on above: Performed By: #### C MONSTER ####[facility] [address] [place], [place] [address]Mz. Yordan Holt NRBC Normal [facility] Comment on above: Performed By: #### C MONSTER ####[facility] [address] [place], [place] [address]Sl. Yordan Holt PLT 205 103/ul Normal 150-450 [facility] Comment on above: Performed By: #### C MONSTER ####[facility] [address] [place], [place] [address]Oz. Yordan Holt RBC 5.27 106/ul Normal 4.70-6.10 [facility] Comment on above: Performed By: #### C MONSTER ####[facility] [address] [place], [place] [address]Tj. Yordan Holt RDW 11.7 % Normal 11.0-15.0 [facility] Comment on above: Performed By: #### C MONSTER ####[facility] [address] [place], [place] [address]Ko. Yordan Holt SEG # 12.24 103/ul Critically high 1.40-6.50 [facility] Comment on above: Performed By: #### C MONSTER ####[facility] T[address] [place], [place] [address]Xj. Yordan Holt SEG % 92.0 % Critically high 43.0-75.0 [facility] Comment on above: Performed By: #### C MONSTER ####[facility] T[address] [place], [place] [address]Oo. Yordan Holt WBC 13.3 103/ul Critically high 4.0-11.0 The [facility] Comment on above: Performed By: #### C MONSTER ####[facility] [address] [place] [phone]. Yordan Holt CULTURE URINEon 02-11-2023 CULTURE URINE Culture Observations: NO GROWTH. Normal [facility] Comment on above: Performed By: #### U RCX #### [facility] Laboratory [address] [place] [address] [address] Yordan Holt ER URINE PROFILEon 3 Bilirubin Ql (U) Negative Normal NEGATIVE [facility] Comment on above: Performed By: #### U MICRO, ERUR ####[facility] [address] [place] [address]DrJorge Alberto Holt Clarity (U) CLOUDY Abnormal CLEAR [facility] Comment on above: Performed By: #### U MICRO, ERUR ####[facility] [address] [place], [place] [address]Dr. Yordan Holt Color (U) YELLOW Normal YELLOW [facility] Comment on above: Performed By: #### U MICRO, ERUR ####[facility] [address] [place] [address]DrJorge Alberto RICKSAHD A micrscopic examination will be performed if indicated. Normal [facility] Comment on above: Performed By: #### U MICRO, ERUR ####[facility] [address] [place], [place] [address]Dr. Yordan Holt Glucose Ql (U) Negative Normal NEGATIVE The [facility] Comment on above: Performed By: #### U MICRO, ERUR ####[facility] [address] [place], [place] [address]Dr. Yordan Holt Hemoglobin Ql (U) LARGE Abnormal NEGATIVE The [facility] Comment on above: Performed By: #### U MICRO, ERUR ####[facility] [address] [place] [address]Dr. Yordan Holt Ketones Ql (U) 15 mg/dl Abnormal NEGATIVE The [facility] Comment on above: Performed By: #### U MICRO, ERUR ####[facility] [address] [place], [place] [address]Dr. Yordan Holt LEUKOCYTES MODERATE Abnormal NEGATIVE [facility] Comment on above: Performed By: #### U MICRO, ERUR ####[facility] [address] [place] [address]Dr. Yordan Holt Nitrite Ql (U) Negative Normal NEGATIVE The [facility] Comment on above: Performed By: #### U MICRO, ERUR ####[facility] [address] [place] [address]Dr. Yordan Holt pH (U) 6.0 [pH] Normal 5-9 [facility] Comment on above: Performed By: #### U MICRO, ERUR ####[facility] [address] [place] [address]Dr. Yordan Holt Protein (U) [Mass/Vol] 100 mg/dL Abnormal NEGATIVE/ TRACE [facility] Comment on above: Performed By: #### U MICRO, ERUR ####[facility] [address] [place] [address]Dr. Yordan Holt SPEC GRAVITY 1.020 Normal 1.005-<=1.025 [facility] Comment on above: Performed By: #### U MICRO, ERUR ####[facility] [address] [place] [address]Dr. Yordan Holt UR MICRO IND INDICATED Normal [facility] Comment on above: Performed By: #### U MICRO, ERUR ####[facility] [address] [place] [address]Dr. Yordan Holt Urobilinogen Qn (U) 1.0 {Ritu'U}/dL Normal 0.2 - 1. 0 [facility] Comment on above: Performed By: #### U MICRO, ERUR ####[facility] [address] [place] [address]Dr. Yordan Holt LIPASEon 02-11-2023 Lipase [Catalytic activity/Vol] 146.0 U/L Normal 73.0-393.0 [facility] Comment on above: Performed By: #### L IPA, CMP #### [facility] [address] [place] [address] [address] Yordan Holt Operative Reporton 3 Operative Report [id number] #1.00CD:127 Normal [facility] PROF 14(COMP METB)on 023 Albumin [Mass/Vol] 3.9 g/dL Normal 3.4-5.0 [facility] Comment on above: Performed By: #### L IPA, CMP #### [facility] [address] [place] [address] [address] Yordan Holt Albumin/Globulin [Mass ratio] 1.0 {ratio} Normal [facility] Comment on above: Performed By: #### L IPA, CMP #### [facility] [address] [place] [address] [address] Yordan Holt ALP [Catalytic activity/Vol] 79 U/L Normal 46-116 [facility] Comment on above: Performed By: #### L IPA, CMP #### [facility] [address] [place] [address] Dr. Yordan Holt ALT [Catalytic activity/Vol] 22 U/L Normal 16-63 [facility] Comment on above: Performed By: #### L IPA, CMP #### [facility] [address] [place] [address] [address] Yordan Holt Anion gap [Moles/Vol] 13.6 mmol/L Normal [facility] Comment on above: Performed By: #### L IPA, CMP #### [facility] [address] [place] [address] [address] Yordan Holt AST [Catalytic activity/Vol] 17 U/L Normal 15-37 [facility] Comment on above: Performed By: #### L IPA, CMP #### [facility] [address] [place] [address] Dr. Yordan Holt Bilirubin [Mass/Vol] 0.7 mg/dL Normal 0.2-1.0 [facility] Comment on above: Performed By: #### L IPA, CMP #### [facility] [address] [place] [address] [address] Yordan Holt Calcium [Mass/Vol] 8.7 mg/dL Normal 8.5-10.1 The [facility] Comment on above: Performed By: #### L IPA, CMP #### [facility] [address] [place] [address] [address] Yordan Holt Chloride [Moles/Vol] 99 mmol/L Normal 98-107 [facility] Comment on above: Performed By: #### L IPA, CMP #### [facility] [address] [place] [address] [address] Yordan Holt CO2 [Moles/Vol] 27.3 mmol/L Normal 21.0-32.0 [facility] Comment on above: Performed By: #### L IPA, CMP #### [facility] [address] [place] [address] [address] Yordan Holt Creatinine [Mass/Vol] 1.44 mg/dL Critically high 0.70-1.30 [facility] Comment on above: Performed By: #### L IPA, CMP #### [facility] [address] [place] [address] [address] Yordan Holt EGFR-AF [place] >60 Normal >=60 [facility] Comment on above: Performed By: #### L IPA, CMP #### [facility] [address] [place] [address] [address] Yordan Holt EGFR-NON AF [place] 51 mL/min/1.73m2 Critically low >=60 [facility] Comment on above: Performed By: #### L IPA, CMP #### [facility] [address] [place] [address] [address] Yordan Holt Globulin (S) [Mass/Vol] 3.9 g/dL Normal [facility] Comment on above: Performed By: #### L IPA, CMP #### [facility] [address] [place] [address] [address] Yordan Holt Glucose [Mass/Vol] 161 mg/dL Critically high 74-106 [facility] Comment on above: Performed By: #### L IPA, CMP #### [facility] [address] [place] [address] [address] Yordan Holt Potassium [Moles/Vol] 3.6 mmol/L Normal 3.5-5.1 [facility] Comment on above: Performed By: #### L IPA, CMP #### [facility] [address] [place] [address] [address] Yordan Holt Protein [Mass/Vol] 7.8 g/dL Normal 6.4-8.2 The [facility] Comment on above: Performed By: #### L IPA, CMP #### [facility] [address] [place] [address] [address] Yordan Holt Sodium [Moles/Vol] 137 mmol/L Normal 136-145 [facility] Comment on above: Performed By: #### L IPA, CMP #### [facility] [address] [place] [address] [address] Yordan Holt Urea nitrogen [Mass/Vol] 16.0 mg/dL Normal 7.0-18.0 [facility] Comment on above: Performed By: #### L IPA, CMP #### [facility] [address] [place] [address] [address] Yordan Holt Urea nitrogen/Creatinine [Mass ratio] 11.1 mg/mg Normal [facility] Comment on above: Performed By: #### L IPA, CMP #### [facility] [address] [place] [address] [address] Yordan Holt TROPONIN, HIGH SENSITIVITYon 02-11-2023 HSTROP 7.4 pg/mL Normal 4.0-76.1 [facility] Comment on above: Result Comment: CUT- OFF POINTS HAVE BEEN ESTABLISHED BASED ON THE FOURTH UNIVERSAL DEFINITIONS OF MYOCARDIAL INFARCTION. THE UPPER REFERENCE LIMIT (URL) OF TROPONIN, DEFINED THE 99TH PERCENTILE OF cTnI DISTRIBUTION IN A REFERENCE POPULATION, HAS BEEN CONFIRMED THE DECISION THRESHOLD FOR OR DIAGNOSIS. Performed By: #### H STROPN #### [facility] [address] [place] [address] [address] Yordan Holt URINE MICROSCOPIC ONLYon AMORPHOUS CRYSTALS RARE Normal The [facility] Comment on above: Performed By: #### U MICRO, ERUR ####[facility] [address] [place] [id number]. Yordan Holt BACTERIA TRACE Abnormal NONE SEEN [facility] Comment on above: Performed By: #### U MICRO, ERUR ####[facility] [address] [place] [address]Dr. Yordan Holt Bacteria identified Cx Nom (U) INDICATED Normal [facility] Comment on above: Performed By: #### U MICRO, ERUR ####[facility] [address] [place] [address]Dr. Yordan Holt CAST NONE SEEN Normal NONE SEEN [facility] Comment on above: Performed By: #### U MICRO, ERUR ####[facility] [address] [place] [address]Dr. Yordan Holt Crystals LM Nom (Urine sed) SEEN Abnormal NONE SEEN [facility] Comment on above: Performed By: #### U MICRO, ERUR ####[facility] K[address] [place], [place] [address]Dr. Yordan Holt Epithelial cells LM Ql (Urine sed) RARE Normal NONE SEEN /RARE [facility] Comment on above: Performed By: #### U MICRO, ERUR ####[facility] Glxeoci[address] [place], [place] [address]Dr. Yordan Holt MUCOUS SMALL Abnormal NONE SEEN [facility] Comment on above: Performed By: #### U MICRO, ERUR ####[facility] Zxxrurwwtu[address] [place], [place] [address]Dr. Yordan Holt RBC (U) [#/Vol] /uL Abnormal 0-2 [facility] Comment on above: Performed By: #### U MICRO, ERUR ####[facility] [address] [place], [place] [address]Dr. Yordan Holt WBC 50-75 Abnormal NONE SEEN [facility] Comment on above: Performed By: #### U MICRO, ERUR ####[facility] Onwd[address] [place], [place] [address]Dr. Yordan Holt XR ABD FLAT UP_PA Kailey 02-11 XR ABD FLAT UP_PA CH EXAMINATION: XR ABD FLAT UP_PA CH HISTORY: NAUSEA WITH VOMITING, UNSPECIFIED , lower abdominal pain COMPARISON: No relevant comparison available. FINDINGS: LUNGS: No infiltrate, pneumothorax, or pleural effusion. MEDIASTINUM: No abnormal widening. BOWEL GAS PATTERN: Air-filled loops of small and large bowel throughout abdomen pelvis without abnormal dilation or suspicious fluid levels. FREE AIR: None. CALCIFICATIONS: None significant. BONES: No fracture or visible bone lesion. OTHER: Negative. IMPRESSION: 1. No acute cardiac point process. 2. No bowel obstruction or appreciable acute findings. Electronically authenticated by: GRISEL THOMAS Date: 2023-02-11 10:02 Normal [facility] CYTOLOGYon 02-10-2023 SENT TO REF LAB 02/10/2023 Normal [facility] Comment on above: Performed By: #### C YTO #### [facility] [address] [place], [place] [address] Dr. Yordan Holt CBC AUTO DIFFon 01-28-2023 BASO # 0.0 103/ul Normal 0.0-0.1 [facility] Comment on above: Performed By: #### C BC ####[facility] [address] [place] [id number] Alberto Holt Basophils/100 WBC (Bld) 0.7 % Normal 0.2-2.0 [facility] Comment on above: Performed By: #### C BC ####[facility] [address] [place] [id number] Alberto Holt EO # 0.0 103/ul Normal 0.0-0.7 [facility] Comment on above: Performed By: #### C BC ####[facility] Qsdq[address]xl14[address] [place] [id number]. Yordan Holt Eosinophils/100 WBC (Bld) 0.0 % Critically low 0.9-7.0 [facility] Comment on above: Performed By: #### C BC ####[facility] Sjj[address] [place] [id number] Alberto Holt Erythrocyte distribution width (RBC) [Ratio] 12.3 % Normal 11.0-15.0 [facility] Comment on above: Performed By: #### C BC ####[facility] [address] [place] [id number] Alberto Holt Hematocrit (Bld) [Volume fraction] 43.2 % Normal 42.0-54.0 [facility] Comment on above: Performed By: #### C BC ####[facility] [address] [place] [id number]. Yordan Holt Hemoglobin (Bld) [Mass/Vol] 14.8 g/dL Normal 14.0-18.0 [facility] Comment on above: Performed By: #### C BC ####[facility] [address]ol[address] [place] [id number]. Yordan Holt IG # 0.01 10e3/ul Normal 0.00-0.03 [facility] Comment on above: Performed By: #### C BC ####[facility] [address] [place] [address]Dr. Yordan Holt IG % 0.2 % Normal 0.0-0.5 [facility] Comment on above: Performed By: #### C BC ####[facility] [address] [place] [address]Dr. Yordan Holt LYMPH # 1.0 103/ul Critically low 1.2-3.8 [facility] Comment on above: Performed By: #### C BC ####[facility] [address] [place] [address]Dr. Yordan Holt Lymphocytes/100 WBC (Bld) 23.4 % Normal 20.5-60.0 [facility] Comment on above: Performed By: #### C BC ####[facility] [address] [place] [id number]. Yordan Holt MANUAL DIFF REQ NO Normal [facility] Comment on above: Performed By: #### C BC ####[facility] [address] [place], [place] [id number]. Yordan Holt MCH (RBC) [Entitic mass] 31.1 pg Normal 25.9-34.0 [facility] Comment on above: Performed By: #### C BC ####[facility] [address]if[address] [place] [id number]. Yordan Holt MCHC (RBC) [Mass/Vol] 34.3 g/dL Normal 29.9-35.2 [facility] Comment on above: Performed By: #### C BC ####[facility] [address] [place] [id number]. Yordan Holt MCV (RBC) [Entitic vol] 90.8 fL Normal 80.0-94.0 [facility] Comment on above: Performed By: #### C BC ####[facility] Xfpezmvpri[address] [place] [id number]. Yordan Holt MONO # 0.4 103/ul Normal 0.3-0.8 [facility] Comment on above: Performed By: #### C BC ####[facility] [address] [place], [place] [address]Dr. Yordan Holt Monocytes/100 WBC (Bld) 10.2 % Normal 1.7-12.0 [facility] Comment on above: Performed By: #### C BC ####[facility] [address] [place], [place] [address]Dr. Yordan Holt NEUT # 2.8 103/ul Normal 1.4-6.5 [facility] Comment on above: Performed By: #### C BC ####[facility] F[address] [place], [place] [address]Dr. Yordan Holt Neutrophils/100 WBC (Bld) 65.5 % Normal 43.0-75.0 [facility] Comment on above: Performed By: #### C BC ####[facility] [address] [place], [place] [address]Dr. Yordan Holt Platelet mean volume (Bld) [Entitic vol] 9.2 fL Critically low 9.5-13.5 [facility] Comment on above: Performed By: #### C BC ####[facility] [address] [place], [place] [address]Dr. Yordan Holt PLT 172 103/ul Normal 150-450 [facility] Comment on above: Performed By: #### C BC ####[facility] [address] [place], [place] [address]Dr. Yordan Holt RBC 4.76 106/ul Normal 4.70-6.10 [facility] Comment on above: Performed By: #### C BC ####[facility] [address] [place] [address]Dr. Yordan Holt WBC 4.2 103/ul Normal 4.0-11.0 [facility] Comment on above: Performed By: #### C BC ####[facility] [address] [place] [phone]. Yordan Holt PROF CHEM 8 (BAS METB)on Anion gap [Moles/Vol] 11.6 mmol/L Normal [facility] Comment on above: Performed By: #### B MP #### [facility] [address] [place] [address] [address] Yordan Holt Calcium [Mass/Vol] 8.5 mg/dL Normal 8.5-10.1 [facility] Comment on above: Performed By: #### B MP #### [facility] [address] [place] [address] [address] Yordan Holt Chloride [Moles/Vol] 104 mmol/L Normal 98-107 [facility] Comment on above: Performed By: #### B MP #### [facility] [address] [place] [address] [address] Yordan Holt CO2 [Moles/Vol] 28.1 mmol/L Normal 21.0-32.0 [facility] Comment on above: Performed By: #### B MP #### [facility] [address] [place] [address] [address] Yordan Holt Creatinine [Mass/Vol] 1.00 mg/dL Normal 0.70-1.30 [facility] Comment on above: Performed By: #### B MP #### [facility] [address] [place] [address] [address] Yordan Holt EGFR-AF S[place] >60 Normal >=60 [facility] Comment on above: Performed By: #### B MP #### [facility] [address] [place] [address] [address] Yordan Holt EGFR-NON AF [place] >60 Normal >=60 [facility] Comment on above: Performed By: #### B MP #### [facility] [address] [place] [address] [address] Yordan Holt Glucose [Mass/Vol] 117 mg/dL Critically high 74-106 [facility] Comment on above: Performed By: #### B MP #### [facility] [address] [place] [address] [address] Yordan Holt Potassium [Moles/Vol] 3.7 mmol/L Normal 3.5-5.1 [facility] Comment on above: Performed By: #### B MP #### [facility] [address] [place] [address] [address] Yordan Holt Sodium [Moles/Vol] 140 mmol/L Normal 136-145 [facility] Comment on above: Performed By: #### B MP #### [facility] [address] [place] [address] [address] Yordan Holt Urea nitrogen [Mass/Vol] 13.0 mg/dL Normal 7.0-18.0 [facility] Comment on above: Performed By: #### B MP #### [facility] [address] [place] [address] Dr. Yordan Holt Urea nitrogen/Creatinine [Mass ratio] 13.0 mg/mg Normal [facility] Comment on above: Performed By: #### B MP #### [facility] [address] [place] [address] ABD/PELV WO W CONon 12-25 CT ABD/PELV WO W CON EXAMINATION: CT urogram with and without contrast 12/24/2022 COMPARISON STUDY: CT urogram 11/28/2021. HISTORY: Microscopic hematuria TECHNIQUE: 3 mm sections were obtained from the lung bases through the pubic symphysis before and after the utilization of intravenous contrast. Intravenous contrast was administered as a split bolus. Coronal and sagittal reconstructed images were obtained. Dose reduction techniques were achieved by using automated exposure control and/or adjustment of mA and/or kV according to patient size and/or use of iterative reconstruction technique. CT ABDOMEN: The lower cardiac chambers, posterior mediastinal structures and lung bases demonstrate no acute abnormality. The gallbladder is surgically absent. Hepatic capsular surface appears lobulated and nodular suggestive of underlying possible cirrhotic change. Distal esophageal and perigastric varices with small intra-abdominal collaterals are noted. There is no discrete hepatic mass. Spleen, pancreas and adrenals appear unremarkable. Similar multifocal cortical thinning and scarring associated with the mid and inferior pole of the right kidney with asymmetric atrophy again noted. On the precontrast images a midpole calyceal stone on the right is seen on coronal image #46 and faintly on axial image 36. The left kidney appears unremarkable. There is a medially located midpole calyceal diverticulum noted adjacent to cortical thinning, image #33 of series 8. Similar change is identified at the inferior pole on image #43. Remaining calyces are sharp. Renal collecting system on the right is duplicated with suboptimal opacification of both ureters noted. CT PELVIS: Prostate has transverse width of 5.1 cm. Seminal vesicles are symmetric. On the precontrast images urinary bladder is partially collapsed. On the postcontrast images mild circumferential thickened and trabeculated appearance to the wall with partial opacification of the dependent aspect of the lumen is noted. Diverticular disease of the colon is noted again. Negative for appendicitis or diverticulitis. No significantly enlarged adenopathy. Tiny umbilical and right inguinal hernias are identified containing fat without bowel. Mild exaggeration lumbar lordotic curvature is noted. Old healed bilateral lower rib fracture deformities are faintly suggested. No acute osseous abnormality. There is a subcentimeter sclerotic focus toward the right side of the L5 vertebral body again noted presumably related to bone island. Similar-appearing focus involving the S1 segment toward the left as well as involving left femoral head noted. IMPRESSION: 1. Multifocal cortical thinning and scarring associated with the mid and inferior pole of the right kidney. Calyceal diverticula at the medial aspect of the midpole as well as inferior pole near the cortical scarring and thinning again noted. 2. Nonobstructive mid pole right renal calculus. 3. 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 There is suboptimal opacification of the ureters and urinary bladder. 4. Mild prostatomegaly. No significantly enlarged adenopathy. 5. Mild circumferential thickened and trabeculated appearance of the urinary bladder wall presumably related to chronic urinary bladder outlet obstruction in combination with partial distention. 6. Mild colonic diverticulosis without diverticulitis or appendicitis. 7. Cirrhotic change liver with upper abdominal varices noted. Prior cholecystectomy. Electronically authenticated by: ELIAS PONCE Date: 2022-12-25 20:[address] [facility] MR prostate wo/w conon 12-03 MR prostate wo/w con [facility] [place] [address] [place] [address] MRI Report Signed Patient: Venita Rosenberg MR#: [id number] : 1965 Acct:[id number] Age/Sex: 57 / M ADM Date: 12/03/22 Loc: MR Room: Type: [facility] Attending Dr: Jarad Paulson MD Copies to: Jarad Paulson MD Ordering Provider: Jarad Paulson MD Date of Service: 12/03/22 MR/MR prostate wo/w con: ELEVATED PSA, PROSTATE NODULE EXAMINATION: MR prostate wo/w con HISTORY: Elevated PSA. COMPARISON: NONE TECHNIQUE: Multiparametric imaging of the prostate gland was performed with IV contrast. FINDINGS: Prostate Dimensions: 4.8 x 3.3 x 4.5 cm Prostate Volume: 37 mL Peripheral Zone: Heterogenous inT2 signal suggestive of prior prostatitis. Focal area of T2 hypointensity is seen involving the posterior aspect of the right peripheral zone at the level of the midline measuring 13 x 11 mm with restricted diffusion and low ADC value. No evidence of extra prostatic extension. Please see series 4 image 19, series 650 image 14 and series 600 image 14. Additional area of T2 hypointensity is identified involving the posterior aspect of the left peripheral zone at the level of the base extending into the midline measuring 19 x 5 mm with restricted diffusion and low ADC value. No gross extracapsular extension is seen. Please see series 4 image 22, series 650 image 17 and series 600 image 17 Central/Transitional Zone: BPH changes. Seminal Vesicles: Unremarkable Neurovascular bundles: Unremarkable. Lymphadenopathy: No evidence of lymphadenopathy. Bladder: No focal lesion. Bowel: Diverticulosis. Peritoneal Cavity: No free fluid. Right-sided fat filled inguinal hernia. Bones: No suspicious bony lesion. MR/MR prostate wo/w con IMPRESSION: Focal area of T2 hypointensity is seen involving the posterior aspect of the right peripheral zone at the level of the midline measuring 13 x 11 mm with restricted diffusion and low ADC value. No evidence of extra prostatic extension. Please see series 4 image 19, series 650 image 14 and series 600 image 14. PI-RADS 4. Targeting on biopsy is recommended. Additional area of T2 hypointensity is identified involving the posterior aspect of the left peripheral zone at the level of the base extending into the midline measuring 19 x 5 mm with restricted diffusion and low ADC value. No gross extracapsular extension is seen. Please see series 4 image 22, series 650 image 17 and series 600 image 17. PI-RADS 5. Targeting on biopsy is recommended. Impression dictated by: Leonardo Mitchell Jr., Deonte12/03/2022 1:40 PM Dictation Location: RADIO-PC-12 Transcribed By: PWS 12/03/22 1340 Dictated By: Leonardo Mitchell Jr DO 12/03/22 1327 Signed By: 12/03/22 1340 [facility] OPERATIVE REPORTon 9 OPERATIVE REPORT [address] [id number] OPERATIVE REPORT PATIENT NAME: VENITA ROSENBERG : 1965 MED REC NO: [id number] ROOM: ACCOUNT NO: [id number] ADMIT DATE: 05/16/2019 PROVIDER: Bg Humphrey DATE OF PROCEDURE: 05/16/2019 ATTENDING SURGEON: Dr. Bg Humphrey. PCP: Parth García. PREOPERATIVE DIAGNOSES: Cholecystitis, cholelithiasis. POSTOPERATIVE DIAGNOSES: Cholecystitis, cholelithiasis with hydrops. OPERATION PERFORMED: Laparoscopic cholecystectomy, robotic assist. ANESTHESIA: General endotracheal tube. IV FLUIDS: 1 liter of crystalloid. ESTIMATED BLOOD LOSS: Less than 50 mL. INTRAOPERATIVE FINDINGS: As mentioned above. Cholecystitis with hydrops. Cystic duct and artery clearly visualized with indocyanine green assist. Good postoperative hemostasis. No evidence of bile leak. INDICATIONS: The patient is a 53 old white male with cholecystitis and cholelithiasis. No evidence of biliary obstruction. At this time, cholecystectomy is indicated. OPERATIVE PROCEDURE: After obtaining informed consent with discussion of risks, benefits, and alternatives including a remote risk of bleeding, infection, bowel or bile duct injury, the patient was taken to the operating theater and placed in the supine position on the operating table. He received preoperative IV antibiotics and SONJA sequentials. Following smooth induction of general anesthesia, he was positioned and prepped and draped in standard fashion. An incision was carried out through the skin and subcutaneous tissues just below the umbilicus. It was deepened bluntly to the rectus fascia. Stay sutures of 0 Vicryl were placed in the fascia with anterior traction along the stay sutures. The rectus sheath was divided under direct vision followed by the peritoneum. Finger sweep showed no anterior adhesions. A 12 mm balloon port was then placed under direct vision and a pneumoperitoneum was established to 15 mmHg. Two lateral 8 mm ports were placed in the anterior axillary border with a third 8 mm port in the right midclavicular line, all under direct vision. The patient was then appropriately positioned in reverse Trendelenburg. Da Rashad robot was docked. The gallbladder was grasped and retracted superiorly. It was found to be quite inflamed with omental adhesions to the undersurface of the gallbladder and liver. These were taken down with blunt dissection and highly selective use of cautery. Ultimately, the infundibulum was taken laterally. The cystic duct and artery were dissected from the surrounding tissues. These two structures and only these two structures were seen going directly to the gallbladder. This was confirmed with indocyanine green Firefly fluorescence. The cystic duct and artery were clipped twice along the patient's side, once along the gallbladder and divided with cautery. The gallbladder was then removed from the undersurface of the liver. It was found to be completely obstructed with gallbladder hydrops. Purulent content was present within the gallbladder. This was suction irrigated with gentamicin saline solution. The gallbladder was then meticulously dissected from the undersurface of the liver. This did require some extended operative time due to the dense inflammatory reaction. The gallbladder was retracted away. The right upper quadrant was thoroughly irrigated with copious amounts of gentamicin saline solution until clear. Final inspection of the undersurface of the liver showed excellent hemostasis. Clips were in place. No evidence of bile leak. The gallbladder was then placed in an EndoCatch bag. The da Rashad robot was undocked and removed away from the bedside. Each port was then removed under direct vision again ensuring hemostasis. The gallbladder was removed through the umbilical port site and passed off as specimen. The umbilical port site was closed by reapproximation of the rectus fascia with 0 Vicryl in a [id number] fashion. Skin edges were reapproximated with skin kamlesh. All sponge, needle, and instrument counts were correct at the end of the case. The patient tolerated the procedure well and was transferred to PACU in stable condition. SPECIMENS: Gallbladder with stones. DRAINS: None. COMPLICATIONS: None. DISPOSITION: To PACU, extubated, awake, alert, and stable. Following recovery, we will discharge the patient home with gradual advancement of diet and activity as tolerated with instructions for no heavy lifting nor abdominal straining for the next few weeks. Followup will be with me in one to two weeks for staple removal. BG HUMPHREY [id number] Doc#: [id number] CC: Parth García Bghelen Humphrey [facility] Surgical Pathologyon 019 Surgical Pathology (NOTE) [id number] [facility] [employer] CONSULTING PATHOLOGISTS [facility] ANATOMIC PATHOLOGY [address] [place] [address]. [place] [phone] SURGICAL PATHOLOGY CONSULTATION Patient Name: VENITA ROSENBERG [facility] Rec: [id number] Path Number: [id number] Collected: 05/16/2019 Received: 05/17/2019 Reported: 05/18/2019 13:00 -- Diagnosis -- GALLBLADDER, CHOLECYSTECTOMY: - ACUTE AND CHRONIC CHOLECYSTITIS, FOCALLY GANGRENOUS, WITH FOCAL MUCOSAL ULCERATIONS AND MURAL FIBROSIS. Nathan Eduardo, Electronically Signed Out /05/18/2019 Clinical Information Pre-op Diagnosis: CHOLELITHIASIS Operative Findings: GALLBLADDER Operation Performed: LAPAROSCOPIC CHOLECYSTECTOMY Source of Specimen 1: GALLBLADDER (A) Gross Description VENITA ROSENBERG, GALLBLADDER 8.4 x 2.5 x 2.3 cm esqueda-pink previously opened gallbladder. A pericystic lymph node is not identified. On opening, no bile or calculi are identified in the lumen or separate in the container. The transmural thickness measures up to 0.5 cm. The mucosa is esqueda-pink to patchy yellow-green and partially necrotic in appearance. The cystic duct is grossly unremarkable. No masses are identified. [employer] sections 1cs. tm Microscopic Description Microscopic examination performed. [facility] Comment on above: Performed By: #### T ROPI, CDP, PTT, PT, BNP, BMP #### [facility] [address] [place] [address] High Heel Builder: Rito Morris MD Basic Metabolic Profon 05-01 Anion gap [Moles/Vol] 15 mmol/L Normal 9-17 [facility] Comment on above: Performed By: #### T ROPI, CDP, PTT, PT, BNP, BMP #### [facility] [address] [place], [place] [id number] High Heel Builder: Rito Morris MD BUN/CRE Ratio 13 Normal 9-20 [facility] Comment on above: Performed By: #### T ROPI, CDP, PTT, PT, BNP, BMP #### [facility] [address] [place], [place] [id number] High [employer]el Builder: Rito Morris MD Calcium [Mass/Vol] 9.0 mg/dL Normal 8.6-10.4 [facility] Comment on above: Performed By: #### T ROPI, CDP, PTT, PT, BNP, BMP #### [facility] [address] [place], [place] [id number] High [employer] Builder: Rito Morris MD Chloride [Moles/Vol] 98 mmol/L Normal 98-107 [facility] Comment on above: Performed By: #### T ROPI, CDP, PTT, PT, BNP, BMP #### [address] [place] [address] High Heel Builder: Rito Morris MD CO2 [Moles/Vol] 24 mmol/L Normal 20-31 [facility] Comment on above: Performed By: #### T ROPI, CDP, PTT, PT, BNP, BMP #### [facility] [address] [place] [address] High Heel Builder: Rito Morris MD Creatinine [Mass/Vol] 0.91 mg/dL Normal 0.70-1.20 [facility] Comment on above: Performed By: #### T ROPI, CDP, PTT, PT, BNP, BMP #### [facility] [address] [place], [place] [id number] High Heel Builder: Rito Morris MD GFR, Amer >60 Normal >60 [facility] Comment on above: Performed By: #### T ROPI, CDP, PTT, PT, BNP, BMP #### [facility] [address] [place], [place] [id number] High Heel Builder: Rito Morris MD GFR,non Amer >60 Normal >60 [facility] Comment on above: Performed By: #### T ROPI, CDP, PTT, PT, BNP, BMP #### [facility] [address] [place] [id number] High Heel Builder: Rito Morris MD Glucose [Mass/Vol] 160 mg/dL High 70-99 [facility] Comment on above: Performed By: #### T ROPI, CDP, PTT, PT, BNP, BMP #### [address] [place], [place] [id number] High Heel Builder: Rito Morris MD Potassium [Moles/Vol] 3.8 mmol/L Normal 3.7-5.3 [facility] Comment on above: Performed By: #### T ROPI, CDP, PTT, PT, BNP, BMP #### [address] [place], [place] [id number] High Heel Builder: Rito Morris MD Sodium [Moles/Vol] 137 mmol/L Normal 135-144 [facility] Comment on above: Performed By: #### T ROPI, CDP, PTT, PT, BNP, BMP #### [address] [place], [place] [id number] High Heel Builder: Rito Morris MD Urea nitrogen [Mass/Vol] 12 mg/dL Normal 6-20 [facility] Comment on above: Performed By: #### T ROPI, CDP, PTT, PT, BNP, BMP #### [address] [place] [address] High Heel Builder: Rito Morris MD (cont.) [facility] Comment on above: Result Comment: Aver age GFR for 50-59 years old: 93 mL/min/1.73sq m Chronic Kidney Disease: <60 mL/min/1.73sq m Kidney failure: <15 mL/min/1.73sq m eGFR calculated using average adult body mass. Additional eGFR calculator available at: http://www.Diagnoplex/multiple_crcl_2012.htm Performed By: #### T ROPI, CDP, PTT, PT, BNP, BMP #### [facility] [address] [place] [address] High Heel Builder: Rito Morris MD Staging: [facility] Comment on above: Result Comment: Stag e 1: Some kidney damage normal GFR Stage 2: Mild kidney damage GFR 60-89 Stage 3: Moderate kidney damage GFR 30-59 Stage 4: Severe kidney damage GFR 15-29 Stage 5: Severe kidney damage GFR <15 ESRD - chronic treatment by dialysis or transplant Performed By: #### T ROPI, CDP, PTT, PT, BNP, BMP #### [address] [place] [id number] High Heel Builder: Rito Morris MD CBC with Diffon 05-01-2019 Abs. Basophil 0.09 k/uL Normal 0.0-0.2 [facility] Comment on above: Performed By: #### T ROPI, CDP, PTT, PT, BNP, BMP #### [facility] [address] [place] [address] High Heel Builder: Rito Morris MD Abs.Imm.Granulocyte 0.09 k/uL Normal 0.00-0.30 [facility] Comment on above: Performed By: #### T ROPI, CDP, PTT, PT, BNP, BMP #### [facility] [address] [place], [place] [id number] High Heel Builder: Rito Morris MD Abs.Neutrophil (Seg) 6.94 k/uL Normal 1.50-8.10 [facility] Comment on above: Performed By: #### T ROPI, CDP, PTT, PT, BNP, BMP #### [address] [place], [facility]83 High Heel Builder: Rito Morris MD Basophils/100 WBC (Bld) 1 % Normal 0-2 [facility] Comment on above: Performed By: #### T ROPI, CDP, PTT, PT, BNP, BMP #### [address] [place] [id number] High Heel Builder: Rito Morris MD Eosinophils (Bld) [#/Vol] 0.27 10*3/uL Normal 0.00-0.44 [facility] Comment on above: Performed By: #### T ROPI, CDP, PTT, PT, BNP, BMP #### [address] [place], [place] [address] High Heel Builder: Rito Morris MD Eosinophils/100 WBC (Bld) 3 % Normal 1-4 [facility] Comment on above: Performed By: #### T ROPI, CDP, PTT, PT, BNP, BMP #### [address] [place] [id number] High Heel Builder: Rito Morris MD Immature granulocytes (Bld) [#/Vol] 1 % High 0 [facility] Comment on above: Performed By: #### T ROPI, CDP, PTT, PT, BNP, BMP #### [address] [place], [facility]83 High Heel Builder: Rito Morris MD Lymphocytes (Bld) [#/Vol] 0.71 10*3/uL Low 1.10-3.70 [facility] Comment on above: Performed By: #### T ROPI, CDP, PTT, PT, BNP, BMP #### [address] [place] [id number] High Heel Builder: Rito Morris MD Lymphocytes/100 WBC (Bld) 8 % Low 24-43 [facility] Comment on above: Performed By: #### T ROPI, CDP, PTT, PT, BNP, BMP #### [facility] [address] [place], [place] [id number] High Heel Builder: Rito Morris MD Monocytes (Bld) [#/Vol] 0.80 10*3/uL Normal 0.10-1.20 [facility] Comment on above: Performed By: #### T ROPI, CDP, PTT, PT, BNP, BMP #### [facility] [address] [place], [facility]83 High Heel Builder: Rito Morris MD Monocytes/100 WBC (Bld) 9 % Normal 3-12 [facility] Comment on above: Performed By: #### T ROPI, CDP, PTT, PT, BNP, BMP #### [facility] [address] [place], [facility]83 High Heel Builder: Rito Morris MD Morphology Terrence (Bld) [Interp] Normal Normal [facility] Comment on above: Performed By: #### T ROPI, CDP, PTT, PT, BNP, BMP #### [facility] [address] [place], [facility]83 High Heel Builder: Rito Morris MD Neutrophil (Seg) 78 % High 36-65 [facility] Comment on above: Performed By: #### T ROPI, CDP, PTT, PT, BNP, BMP #### [facility] [address] [place], [place] [id number] High Heel Builder: Rito Morris MD Erythrocyte distribution width (RBC) [Ratio] 12.2 % Normal 11.8-14.4 [facility] Comment on above: Performed By: #### T ROPI, CDP, PTT, PT, BNP, BMP #### [facility] [address] [place], [place] [id number] High Heel Builder: Rito Morris MD Hematocrit (Bld) [Volume fraction] 47.8 % Normal 40.7-50.3 [facility] Comment on above: Performed By: #### T ROPI, CDP, PTT, PT, BNP, BMP #### [facility] [address] [place] [address] High Heel Builder: Rito Morris MD Hemoglobin (Bld) [Mass/Vol] 15.9 g/dL Normal 13.0-17.0 [facility] Comment on above: Performed By: #### T ROPI, CDP, PTT, PT, BNP, BMP #### [address] [place] [address] High Heel Builder: Rito Morris MD MCH (RBC) [Entitic mass] 30.6 pg Normal 25.2-33.5 [facility] Comment on above: Performed By: #### T ROPI, CDP, PTT, PT, BNP, BMP #### [address] [place] [address] High Heel Builder: Rito Morris MD MCHC (RBC) [Mass/Vol] 33.3 g/dL Normal 28.4-34.8 [facility] Comment on above: Performed By: #### T ROPI, CDP, PTT, PT, BNP, BMP #### [address] [place] [address] High Heel Builder: Rito Morris MD MCV (RBC) [Entitic vol] 91.9 fL Normal 82.6-102.9 [facility] Comment on above: Performed By: #### T ROPI, CDP, PTT, PT, BNP, BMP #### [address] [place] [address] High Heel Builder: Rito Morris MD NRBC Automated 0.0 per 100 WBC Normal 0.0 [facility] Comment on above: Performed By: #### T ROPI, CDP, PTT, PT, BNP, BMP #### [address] [place], [facility]83 High Heel Builder: Rito Morris MD Platelet mean volume (Bld) [Entitic vol] 9.6 fL Normal 8.1-13.5 [facility] Comment on above: Performed By: #### T ROPI, CDP, PTT, PT, BNP, BMP #### [facility] [address] [place], [facility]83 High Heel Builder: Rito Morris MD Platelets (Bld) [#/Vol] 185 10*3/uL Normal 138-453 [facility] Comment on above: Performed By: #### T ROPI, CDP, PTT, PT, BNP, BMP #### [facility] [address] [place], [facility]83 High Heel Builder: Rito Morris MD RBC (Bld) [#/Vol] 5.20 10*6/uL Normal 4.21-5.77 [facility] Comment on above: Performed By: #### T ROPI, CDP, PTT, PT, BNP, BMP #### [address] [place], [facility]83 High Heel Builder: Rito Morris MD WBC (Bld) [#/Vol] 8.9 10*3/uL Normal 3.5-11.3 [facility] Comment on above: Performed By: #### T ROPI, CDP, PTT, PT, BNP, BMP #### [facility] [address] [place], [facility]83 High Heel Builder: Rito Morris MD Auto Diff Performed NOT REPORTED Normal [facility] Comment on above: Performed By: #### T ROPI, CDP, PTT, PT, BNP, BMP #### [facility] [address] [place], [facility]83 High Heel Builder: Rito Morris MD Platelets (Bld) [#/Vol] NOT REPORTED Normal [facility] Comment on above: Performed By: #### T ROPI, CDP, PTT, PT, BNP, BMP #### [facility] [address] [place], [place] [id number] High Heel Builder: Rito Morris MD RBC morphology finding Nom (Bld) NOT REPORTED Normal [facility] Comment on above: Performed By: #### T ROPI, CDP, PTT, PT, BNP, BMP #### [facility] [address] [place], [place] [id number] High Heel Builder: Rito Morris MD WBC Morphology NOT REPORTED Normal [facility] Comment on above: Performed By: #### T ROPI, CDP, PTT, PT, BNP, BMP #### [facility] [address] [place] [address] High Heel Builder: Rito Morris MD Lactic Acidon 05-01-2019 Lactate [Moles/Vol] 2.1 mmol/L Normal 0.5-2.2 [facility] Comment on above: Performed By: #### T ROPI, CDP, PTT, PT, BNP, BMP #### [facility] [address] [place] [address] High Heel Builder: Rito Morris MD Lactate [Moles/Vol] NOT REPORTED Normal 0.7-2.1 [facility] Comment on above: Performed By: #### T ROPI, CDP, PTT, PT, BNP, BMP #### [facility] [address] [place], [facility]83 High Heel Builder: Rito Morris MD Lipaseon 05-01-2019 Lipase [Catalytic activity/Vol] 23 U/L Normal 13-60 [facility] Comment on above: Performed By: #### T ROPI, CDP, PTT, PT, BNP, BMP #### [facility] [address] [place] [address] High Heel Builder: Rito Morris MD Liver Profileon 05-01-2019 Albumin [Mass/Vol] 4.3 g/dL Normal 3.5-5.2 [facility] Comment on above: Performed By: #### T ROPI, CDP, PTT, PT, BNP, BMP #### [facility] [address] [place] [address] High Heel Builder: Rito Morris MD Albumin/Globulin [Mass ratio] 1.5 {ratio} Normal 1.0-2.5 [facility] Comment on above: Performed By: #### T ROPI, CDP, PTT, PT, BNP, BMP #### [facility] [address] [place], [place] [id number] High Heel Builder: Rito Morris MD Alkaline Phos 65 U/L Normal 40-129 [facility] Comment on above: Performed By: #### T ROPI, CDP, PTT, PT, BNP, BMP #### [facility] [address] [place] [address] High Heel Builder: Rito Morris MD ALT [Catalytic activity/Vol] 12 U/L Normal 5-41 [facility] Comment on above: Performed By: #### T ROPI, CDP, PTT, PT, BNP, BMP #### [facility] [address] [place] [address] High Heel Builder: Rito Morris MD AST [Catalytic activity/Vol] 16 U/L Normal <40 [facility] Comment on above: Performed By: #### T ROPI, CDP, PTT, PT, BNP, BMP #### [facility] [address] [place], [place] [id number] High Heel Builder: Rito Morris MD Bilirubin Ql (U) 0.61 mg/dL Normal 0.3-1.2 [facility] Comment on above: Performed By: #### T ROPI, CDP, PTT, PT, BNP, BMP #### [facility] [address] [place] [address] High Heel Builder: Rito Morris MD Bilirubin, Indirect CANNOT BE CALCULATED Normal 0.00-1 .00 [facility] Comment on above: Performed By: #### T ROPI, CDP, PTT, PT, BNP, BMP #### [facility] [address] [place], [facility]83 High Heel Builder: Rito Morris MD Bilirubin.direct [Mass/Vol] mg/dL Normal <0.31 [facility] Comment on above: Performed By: #### T ROPI, CDP, PTT, PT, BNP, BMP #### [facility] [address] [place], [facility]83 High Heel Builder: Rito Morris MD Protein [Mass/Vol] 7.2 g/dL Normal 6.4-8.3 [facility] Comment on above: Performed By: #### T ROPI, CDP, PTT, PT, BNP, BMP #### [address] [place] [id number] High Heel Builder: Rito Morris MD Globulin (S) [Mass/Vol] NOT REPORTED Normal 1.5-3.8 [facility] Comment on above: Performed By: #### T ROPI, CDP, PTT, PT, BNP, BMP #### [address] [place] [address] High Heel Builder: Rito Morris MD Troponinon 05-01-2019 Troponin I.cardiac [Mass/Vol] Normal [facility] Comment on above: Result Comment: Refe rence Range: <0.03 Within reference range. 0.03-0.09 Possible myocardial damage. Repeat at appropriate intervals to rule out chronic elevation. >= 0.10 Indicative of myocardial damage. Patients with high levels of Biotin oral intake (i.e >5mg/day) may have falsely decreased Troponin T levels. Samples collected within 8 hours of biotin intake may require additional information for diagnosis. Performed By: #### T ROPI, CDP, PTT, PT, BNP, BMP #### [facility] [address] [place] [id number] High Heel Builder: Rito Morris MD Troponin I.cardiac [Mass/Vol] ng/mL Normal <0.03 [facility] Comment on above: Result Comment: Trop onin T results cannot be compared to Troponin-I results. Performed By: #### T ROPI, CDP, PTT, PT, BNP, BMP #### [facility] [address] [place], [place] [id number] High Heel Builder: Rito Morris MD Troponin I.cardiac [Mass/Vol] NOT REPORTED Normal 0-22 [facility] Comment on above: Performed By: #### T ROPI, CDP, PTT, PT, BNP, BMP #### [facility] [address] [place] [address] High Heel Builder: Rito Morris MD US GALLBLADDER RUQon 019 US GALLBLADDER RUQ EXAMINATION: RIGHT UPPER QUADRANT ULTRASOUND 05/01/2019 6:59 am COMPARISON: CT chest, abdomen, and pelvis dated 04/28/2019 HISTORY: ORDERING SYSTEM PROVIDED HISTORY: RUQ pain FINDINGS: LIVER: The liver demonstrates normal echogenicity without evidence of intrahepatic biliary ductal dilatation. BILIARY SYSTEM: There is mild gallbladder wall thickening, measuring up to 0.8 cm. No visible cholelithiasis. No significant pericholecystic fluid. The assembling machine operator did not comment on the Houser's sign. Common bile duct is within normal limits measuring 0.6 cm. RIGHT KIDNEY: The right kidney is grossly unremarkable without evidence of hydronephrosis. Right kidney measures 9.3 cm in length. PANCREAS: Visualized portions of the pancreas are unremarkable. OTHER: No evidence of right upper quadrant ascites. IMPRESSION: 1. Diffuse gallbladder wall thickening without evidence of cholelithiasis. This is a nonspecific finding that can be seen with hepatitis, CHF, diffuse liver disease, pancreatitis, or hypoproteinemia. 2. Otherwise unremarkable right upper quadrant abdominal ultrasound. Interpreted by: Kassie Hurtado DO Signed by: Kassie Hurtado DO 05/01/19 Final result Normal [facility] APTTon 04-28-2019 aPTT Coag (Bld) [Time] 25.4 s Normal 23.2-34.4 [facility] Comment on above: Performed By: #### T ROPI, CDP, PTT, PT, BNP, BMP #### [facility] [address] [place] [address] High Heel Builder: Rito Morris MD Basic Metabolic Profon 04-28 (cont.) Normal [facility] Comment on above: Result Comment: Aver age GFR for 50-59 years old: 93 mL/min/1.73sq m Chronic Kidney Disease: <60 mL/min/1.73sq m Kidney failure: <15 mL/min/1.73sq m eGFR calculated using average adult body mass. Additional eGFR calculator available at: http://www.Diagnoplex/multiple_crcl_2012.htm Performed By: #### T ROPI, CDP, PTT, PT, BNP, BMP #### [facility] [address] [place] [address] High Heel Builder: Rito Morris MD Anion gap [Moles/Vol] 11 mmol/L Normal 9-17 [facility] Comment on above: Performed By: #### T ROPI, CDP, PTT, PT, BNP, BMP #### [facility] [address] [place] [address] High Heel Builder: Rito Morris MD BUN/CRE Ratio 13 Normal 9-20 [facility] Comment on above: Performed By: #### T ROPI, CDP, PTT, PT, BNP, BMP #### [facility] [address] [place] [address] High Heel Builder: Rito Morris MD Calcium [Mass/Vol] 8.9 mg/dL Normal 8.6-10.4 [facility] Comment on above: Performed By: #### T ROPI, CDP, PTT, PT, BNP, BMP #### [facility] [address] [place] [address] High Heel Builder: Rito Morris MD Chloride [Moles/Vol] 101 mmol/L Normal 98-107 [facility] Comment on above: Performed By: #### T ROPI, CDP, PTT, PT, BNP, BMP #### [facility] [address] [place], [place] 514[address]83 High Heel Builder: Rito Morris MD CO2 [Moles/Vol] 26 mmol/L Normal 20-31 [facility] Comment on above: Performed By: #### T ROPI, CDP, PTT, PT, BNP, BMP #### [facility] [address] [place] [address] High Heel Builder: Rito Morris MD Creatinine [Mass/Vol] 0.86 mg/dL Normal 0.70-1.20 [facility] Comment on above: Performed By: #### T ROPI, CDP, PTT, PT, BNP, BMP #### [facility] [address] [place] [address] High Heel Builder: Rito Morris MD GFR, Amer >60 Normal >60 [facility] Comment on above: Performed By: #### T ROPI, CDP, PTT, PT, BNP, BMP #### [facility] [address] [place] [address] High Heel Builder: Rito Morris MD GFR,non Amer >60 Normal >60 [facility] Comment on above: Performed By: #### T ROPI, CDP, PTT, PT, BNP, BMP #### [facility] [address] [place] [address] High Heel Builder: Rito Morris MD Glucose [Mass/Vol] 100 mg/dL High 70-99 [facility] Comment on above: Performed By: #### T ROPI, CDP, PTT, PT, BNP, BMP #### [facility] [address] [place] [address] High Heel Builder: Rito Morris MD Potassium [Moles/Vol] 3.9 mmol/L Normal 3.7-5.3 [facility] Comment on above: Performed By: #### T ROPI, CDP, PTT, PT, BNP, BMP #### [facility] [address] [place], [place] [id number] High Heel Builder: Rito Morris MD Sodium [Moles/Vol] 138 mmol/L Normal 135-144 [facility] Comment on above: Performed By: #### T ROPI, CDP, PTT, PT, BNP, BMP #### [facility] [address] [place] [address] High Heel Builder: Rito Morris MD Staging: Normal [facility] Comment on above: Result Comment: Stag e 1: Some kidney damage normal GFR Stage 2: Mild kidney damage GFR 60-89 Stage 3: Moderate kidney damage GFR 30-59 Stage 4: Severe kidney damage GFR 15-29 Stage 5: Severe kidney damage GFR <15 ESRD - chronic treatment by dialysis or transplant Performed By: #### T ROPI, CDP, PTT, PT, BNP, BMP #### [facility] [address] [place], [facility]83 High Heel Builder: Rito Morris MD Urea nitrogen [Mass/Vol] 11 mg/dL Normal 6-20 [facility] Comment on above: Performed By: #### T ROPI, CDP, PTT, PT, BNP, BMP #### [address] [place] [address] High Heel Builder: Rito Morris MD Brain Natri. Peptideon 04-28 Natriuretic peptide B (Bld) [Mass/Vol] 35 pg/mL Normal <300 [facility] Comment on above: Result Comment: Pro- BNP results cannot be compared to BNP results. Performed By: #### T ROPI, CDP, PTT, PT, BNP, BMP #### [facility] [address] [place] [address] High Heel Builder: Rito Morris MD Natriuretic peptide B (Bld) [Mass/Vol] Pro-BNP Reference Range: Normal [facility] Comment on above: Result Comment: Rule Out: <300 Shore Zone: Age <50 300-450 Age 50-75 300-900 Age >75 300-1800 Usually represents mild to moderate HF but other cardiopulmonary causes cannot be ruled out. Rule In: Age <50 >450 Age 50-75 >900 Age >75 >1800 Performed By: #### T ROPI, CDP, PTT, PT, BNP, BMP #### [facility] [address] [place], [place] [address] High Heel Builder: Rito Morris MD CBC with Diffon 04-28-2019 Abs. Basophil <0.03 Normal 0.00-0.20 [facility] Comment on above: Performed By: #### T ROPI, CDP, PTT, PT, BNP, BMP #### [facility] [address] [place], [place] [address] High Heel Builder: Rito Morris MD Abs.Imm.Granulocyte <0.03 Normal 0.00-0.30 [facility] Comment on above: Performed By: #### T ROPI, CDP, PTT, PT, BNP, BMP #### [address] [place], [place] [address] High Heel Builder: Rito Morris MD Abs.Neutrophil (Seg) 2.03 k/uL Normal 1.50-8.10 [facility] Comment on above: Performed By: #### T ROPI, CDP, PTT, PT, BNP, BMP #### [address] [place], [place] [address] High Heel Builder: Rito Morris MD Basophils/100 WBC (Bld) 0 % Normal 0-2 [facility] Comment on above: Performed By: #### T ROPI, CDP, PTT, PT, BNP, BMP #### [address] [place], [place] [address] High Heel Builder: Rito Morris MD Eosinophils (Bld) [#/Vol] 10*3/uL Normal 0.00-0.44 [facility] Comment on above: Performed By: #### T ROPI, CDP, PTT, PT, BNP, BMP #### [facility] [address] [place] [id number] High Heel Builder: Rito Morris MD Eosinophils/100 WBC (Bld) 0 % Low 1-4 [facility] Comment on above: Performed By: #### T ROPI, CDP, PTT, PT, BNP, BMP #### [facility] [address] [place] [address] High Heel Builder: Rito Morris MD Erythrocyte distribution width (RBC) [Ratio] 12.0 % Normal 11.8-14.4 [facility] Comment on above: Performed By: #### T ROPI, CDP, PTT, PT, BNP, BMP #### [facility] [address] [place] [address] High Heel Builder: Rito Morris MD Hematocrit (Bld) [Volume fraction] 48.2 % Normal 40.7-50.3 [facility] Comment on above: Performed By: #### T ROPI, CDP, PTT, PT, BNP, BMP #### [address] [place] [facility]83 High Heel Builder: Rito Morris MD Hemoglobin (Bld) [Mass/Vol] 15.8 g/dL Normal 13.0-17.0 [facility] Comment on above: Performed By: #### T ROPI, CDP, PTT, PT, BNP, BMP #### [address] [place] [address] High Heel Builder: Rito Morris MD Immature granulocytes (Bld) [#/Vol] 0 % Normal 0 [facility] Comment on above: Performed By: #### T ROPI, CDP, PTT, PT, BNP, BMP #### [facility] [address] [place] [id number] High Heel Builder: Rito Morris MD Lymphocytes (Bld) [#/Vol] 1.22 10*3/uL Normal 1.10-3.70 [facility] Comment on above: Performed By: #### T ROPI, CDP, PTT, PT, BNP, BMP #### [facility] [address] [place], [facility]83 High Heel Builder: Rito Morris MD Lymphocytes/100 WBC (Bld) 33 % Normal 24-43 [facility] Comment on above: Performed By: #### T ROPI, CDP, PTT, PT, BNP, BMP #### [facility] [address] [place], [facility]83 High Heel Builder: Rito Morris MD MCH (RBC) [Entitic mass] 30.6 pg Normal 25.2-33.5 [facility] Comment on above: Performed By: #### T ROPI, CDP, PTT, PT, BNP, BMP #### [facility] [address] [place] [facility]83 High Heel Builder: Rito Morris MD MCHC (RBC) [Mass/Vol] 32.8 g/dL Normal 28.4-34.8 [facility] Comment on above: Performed By: #### T ROPI, CDP, PTT, PT, BNP, BMP #### [facility] [address] [place], [facility]83 High Heel Builder: Rito Morris MD MCV (RBC) [Entitic vol] 93.4 fL Normal 82.6-102.9 [facility] Comment on above: Performed By: #### T ROPI, CDP, PTT, PT, BNP, BMP #### [facility] [address] [place], [facility]83 High Heel Builder: Rito Morris MD Monocytes (Bld) [#/Vol] 0.45 10*3/uL Normal 0.10-1.20 [facility] Comment on above: Performed By: #### T ROPI, CDP, PTT, PT, BNP, BMP #### [facility] [address] [place] [address] High Heel Builder: Rito Morris MD Monocytes/100 WBC (Bld) 12 % Normal 3-12 [facility] Comment on above: Performed By: #### T ROPI, CDP, PTT, PT, BNP, BMP #### [facility] [address] [place], [place] [address] High Heel Builder: Rito Morris MD Neutrophil (Seg) 55 % Normal 36-65 [facility] Comment on above: Performed By: #### T ROPI, CDP, PTT, PT, BNP, BMP #### [facility] [address] [place], [facility]83 High Heel Builder: Rito Morris MD NRBC Automated 0.0 per 100 WBC Normal 0.0 [facility] Comment on above: Performed By: #### T ROPI, CDP, PTT, PT, BNP, BMP #### [address] [place], [facility]83 High Heel Builder: Rito Morris MD Platelet mean volume (Bld) [Entitic vol] 9.6 fL Normal 8.1-13.5 [facility] Comment on above: Performed By: #### T ROPI, CDP, PTT, PT, BNP, BMP #### [address] [place], [place] [address] High Heel Builder: Rito Morris MD Platelets (Bld) [#/Vol] 181 10*3/uL Normal 138-453 [facility] Comment on above: Performed By: #### T ROPI, CDP, PTT, PT, BNP, BMP #### [address] [place], [place] [address] High Heel Builder: Rito Morris MD RBC (Bld) [#/Vol] 5.16 10*6/uL Normal 4.21-5.77 [facility] Comment on above: Performed By: #### T ROPI, CDP, PTT, PT, BNP, BMP #### [address] [place], [facility]83 High Heel Builder: Rito Morris MD WBC (Bld) [#/Vol] 3.7 10*3/uL Normal 3.5-11.3 [facility] Comment on above: Performed By: #### T ROPI, CDP, PTT, PT, BNP, BMP #### [facility] [address] [place] [address] Dr. [place], [place] [id number] High Heel Builder: Rito Morris MD Auto Diff Performed NOT REPORTED Normal [facility] Comment on above: Performed By: #### T ROPI, CDP, PTT, PT, BNP, BMP #### [address] [place], [place] [id number] High Heel Builder: Rito Morris MD Platelets (Bld) [#/Vol] NOT REPORTED Normal [facility] Comment on above: Performed By: #### T ROPI, CDP, PTT, PT, BNP, BMP #### [address] [place], [facility]83 High Heel Builder: Rito Morris MD RBC morphology finding Nom (Bld) NOT REPORTED Normal [facility] Comment on above: Performed By: #### T ROPI, CDP, PTT, PT, BNP, BMP #### [address] [place], [place] [id number] High Heel Builder: Rito Morris MD WBC Morphology NOT REPORTED Normal [facility] Comment on above: Performed By: #### T ROPI, CDP, PTT, PT, BNP, BMP #### [address] [place], [facility]83 High Heel Builder: Rito Morris MD CT CHEST ABDOMEN PELVIS W CO NTRASTon 04-28-2019 CT CHEST ABDOMEN PELVIS W CONTRAST EXAMINATION: CTA OF THE CHEST WITH CONTRAST CT OF THE ABDOMEN AND PELVIS WITH CONTRAST 04/28/2019 7:10 am TECHNIQUE: CTA of the chest was and CT of the abdomen and pelvis was performed with the administration of 75 mL Isovue 370 intravenous contrast. Multiplanar reformatted images are provided for review. MIP images are provided for review. Dose modulation, iterative reconstruction, and/or weight based adjustment of the mA/kV was utilized to reduce the radiation dose to as low as reasonably achievable. COMPARISON: None. HISTORY: Acute chest/epigastric pain along with nausea. Pain worse with deep inspiration. FINDINGS: CTA CHEST: Pulmonary Arteries: The pulmonary arteries are adequately opacified for evaluation. No filling defect within the pulmonary arteries. Main pulmonary artery is normal caliber. Mediastinum: Heart is not enlarged. No pericardial effusion. Thoracic aorta is normal caliber. No lymphadenopathy. Thyroid and esophagus are unremarkable. Lungs/Pleura: No consolidation, pleural effusion, or pneumothorax. Scarring at the lung apices. Mild atelectasis/scarring in the medial right lower lobe and along the minor fissure. Soft Tissues/Bones: Osseous structures are unremarkable. Mild gynecomastia. CT ABDOMEN AND PELVIS: Organs: Mild gallbladder wall thickening. No calcified gallstones. Liver, spleen, pancreas, and adrenals are unremarkable. Symmetric enhancement of the kidneys without hydronephrosis. Scarring in the mid to lower right kidney. GI/Bowel: Possible normal appendix visualized. Remainder of the gastrointestinal tract is unremarkable. Pelvis: Bladder is not well distended. Prostate is unremarkable. No lymphadenopathy or free fluid. Peritoneum/Retroperi toneum: No lymphadenopathy or ascites. Mild atherosclerotic disease without abdominal aortic aneurysm. Bones/Soft Tissues: Unremarkable. IMPRESSION: 1. No pulmonary embolism or acute pulmonary abnormality. 2. Nonspecific mild gallbladder wall thickening. Consider ultrasound for further evaluation. 3. Right renal scarring. Interpreted by: Natacha Hernandez MD Signed by: Natacha Hernandez MD 04/28/19 Final result Normal [facility] Lipaseon 04-28-2019 Lipase [Catalytic activity/Vol] 172 U/L High 13-60 [facility] Comment on above: Performed By: #### L IVP, LIP #### [facility] [address] [place] [address] High Heel Builder: Rito Morris MD Liver Profileon 04-28-2019 Albumin [Mass/Vol] 4.4 g/dL Normal 3.5-5.2 [facility] Comment on above: Performed By: #### L IVP, LIP #### [facility] [address] [place] [address] High Heel Builder: Rito Morris MD Albumin/Globulin [Mass ratio] 1.5 {ratio} Normal 1.0-2.5 [facility] Comment on above: Performed By: #### L IVP, LIP #### [facility] [address] [place], [place] [id number] High Heel Builder: Rito Morris MD Alkaline Phos 68 U/L Normal 40-129 [facility] Comment on above: Performed By: #### L IVP, LIP #### [facility] [address] [place] [address] High Heel Builder: Rito Morris MD ALT [Catalytic activity/Vol] 12 U/L Normal 5-41 [facility] Comment on above: Performed By: #### L IVP, LIP #### [facility] [address] [place], [place] [id number] High Heel Builder: Rito Morris MD AST [Catalytic activity/Vol] 14 U/L Normal <40 [facility] Comment on above: Performed By: #### L IVP, LIP #### [facility] [address] [place], [place] [id number] High Heel Builder: Rito Morris MD Bilirubin Ql (U) 0.44 mg/dL Normal 0.3-1.2 [facility] Comment on above: Performed By: #### L IVP, LIP #### [facility] [address] [place], [place] [id number] High Heel Builder: Rito Morris MD Bilirubin, Indirect CANNOT BE CALCULATED Normal 0.00-1 .00 [facility] Comment on above: Performed By: #### L IVP, LIP #### [facility] [address] [place] [address] High Heel Builder: Rito Morris MD Bilirubin.direct [Mass/Vol] mg/dL Normal <0.31 [facility] Comment on above: Performed By: #### L IVP, LIP #### [facility] [address] [place] [address] Dr. [place], [place] [id number] High Heel Builder: Rito Morris MD Protein [Mass/Vol] 7.3 g/dL Normal 6.4-8.3 [facility] Comment on above: Performed By: #### L IVP, LIP #### [address] [place] [id number] High Heel Builder: Rito Morris MD Globulin (S) [Mass/Vol] NOT REPORTED Normal 1.5-3.8 [facility] Comment on above: Performed By: #### L IVP, LIP #### [address] [place] [address] High Heel Builder: Rito Morris MD PTon 04-28-2019 INR Coag (PPP) [Relative time] 1.1 {INR} Normal 0.9-1.2 [facility] Comment on above: Performed By: #### T ROPI, CDP, PTT, PT, BNP, BMP #### [address] [place], [facility]83 High Heel Builder: Rito Morris MD PT Coag (PPP) [Time] 10.8 s Normal 9.7-12.2 [facility] Comment on above: Performed By: #### T ROPI, CDP, PTT, PT, BNP, BMP #### [address] [place], [facility]83 High Heel Builder: Rito Morris MD Troponinon 04-28-2019 Troponin I.cardiac [Mass/Vol] Normal [facility] Comment on above: Result Comment: Refe rence Range: <0.03 Within reference range. 0.03-0.09 Possible myocardial damage. Repeat at appropriate intervals to rule out chronic elevation. >= 0.10 Indicative of myocardial damage. Patients with high levels of Biotin oral intake (i.e >5mg/day) may have falsely decreased Troponin T levels. Samples collected within 8 hours of biotin intake may require additional information for diagnosis. Performed By: #### T ROPI, CDP, PTT, PT, BNP, BMP #### [facility] [address] [place] [address] High Heel Builder: Rito Morris MD Troponin I.cardiac [Mass/Vol] ng/mL Normal <0.03 [facility] Comment on above: Result Comment: Trop onin T results cannot be compared to Troponin-I results. Performed By: #### T ROPI, CDP, PTT, PT, BNP, BMP #### [facility] [address] [place], [place] [id number] High Heel Builder: Rito Morris MD Troponin I.cardiac [Mass/Vol] NOT REPORTED Normal 0-22 [facility] Comment on above: Performed By: #### T ROPI, CDP, PTT, PT, BNP, BMP #### [facility] [address] [place], [place] [phone] High Heel Builder: Rito Morris MD Urinalysis, Routineon 2018 Acetoacetic Acid,Ur TRACE Abnormal NEG [facility] Comment on above: Performed By: #### U MICAO, UA #### [facility] [address] [place] [address] High Heel Builder: Rito Morris MD Bilirubin, SemiQt,Ur Negative Normal NEG [facility] Comment on above: Performed By: #### U MICAO, UA #### [facility] [address] [place], [place] [id number] High Heel Builder: Rito Morris MD Color (U) YELLOW Normal YEL [facility] Comment on above: Performed By: #### U MICAO, UA #### [facility] [address] [place] [address] High Heel Builder: Rito Morris MD Glucose Ql (U) Negative Normal NEG [facility] Comment on above: Performed By: #### U MICAO, UA #### [facility] [address] [place] [address] High Heel Builder: Rito Morris MD Hemoglobin, Ur Negative Normal NEG [facility] Comment on above: Performed By: #### U MICAO, UA #### [facility] [address] [place] [address] High Heel Builder: Rito Morris MD Leukocyte esterase Test strip Ql (U) Negative Normal NEG [facility] Comment on above: Performed By: #### U MICAO, UA #### [facility] [address] [place], [place] [id number] High Heel Builder: Rito Morris MD Nitrite,Ur Negative Normal NEG [facility] Comment on above: Performed By: #### U MICAO, UA #### [facility] [address] [place] [address] High Heel Builder: Rito Morris MD pH (U) 5.5 [pH] Normal 5.0-9.0 [facility] Comment on above: Performed By: #### U MICAO, UA #### [facility] [address] [place], [place] [phone] High Heel Builder: Rito Morris MD Protein Ql (U) Negative Normal NEG [facility] Comment on above: Performed By: #### U MICAO, UA #### [facility] [address] [place], [place] [phone] High Heel Builder: Rito Morris MD Specific gravity (U) [Rel density] >1.030 High 1.010-1.020 [facility] Comment on above: Performed By: #### U MICAO, UA #### [facility] [address] [place], [place] 0110383 High Heel Builder: Rito Morris MD Turbidity CLEAR Normal CLEAR [facility] Comment on above: Performed By: #### U MICAO, UA #### [facility] [address] [place] [address] High Heel Builder: Rito Morris MD Urobilinogen,Ur Normal Normal NORM [facility] Comment on above: Performed By: #### U MICAO, UA #### [facility] [address] [place] [address] High Heel Builder: Rito Morris MD Comment NOT REPORTED Normal [facility] Comment on above: Performed By: #### U MICAO, UA #### [facility] [address] [place] [address] Dr. [place], [place] [address] High Heel Builder: Rito Morris MD Urinalysis,Microon 9 ----- Normal [facility] Comment on above: Performed By: #### U MICAO, UA #### [address] [place] [id number] High Heel Builder: Rito Morris MD Amorphous sediment LM Ql (Urine sed) 1+ Abnormal NONE [facility] Comment on above: Performed By: #### U MICAO, UA #### [address] [place], [facility]83 High Heel Builder: Rito Morris MD Epithelial cells LM.HPF (Urine sed) [#/Area] 0 TO [address] Comment on above: Performed By: #### U MICAO, UA #### [address] [place] [id number] High Heel Builder: Rito Morris MD RBC (U) [#/Vol] None Normal 0-2 [facility] Comment on above: Performed By: #### U MICAO, UA #### [facility] [address] [place] [address] High Heel Builder: Rito Morris MD WBC (U) [#/Vol] 0 TO [address] Comment on above: Performed By: #### U MICAO, UA #### [address] [place] [address] High Heel Builder: Rito Morris MD Bacteria LM.HPF (Urine sed) [#/Area] NOT REPORTED Normal NONE [facility] Comment on above: Performed By: #### U MICAO, UA #### [facility] [address] [place] [address] High Heel Builder: Rito Morris MD Casts LM.LPF (Urine sed) [#/Area] NOT REPORTED Normal [facility] Comment on above: Performed By: #### U MICAO, UA #### [facility] [address] [place] [address] High Heel Builder: Rito Morris MD Crystals LM Nom (Urine sed) NOT REPORTED Normal NONE [facility] Comment on above: Performed By: #### U MICAO, UA #### [facility] [address] [place] [address] High Heel Builder: Rito Morris MD Epithelial, Renal NOT REPORTED Normal 0 [facility] Comment on above: Performed By: #### U MICAO, UA #### [facility] [address] [place] [address] High Heel Builder: Rito Morris MD Mucus Strands NOT REPORTED Normal [facility] Comment on above: Performed By: #### U MICAO, UA #### [facility] [address] [place] [address] High Heel Builder: Rito Morris MD Other Observations NOT REPORTED Normal NREQ [facility] Comment on above: Performed By: #### U MICAO, UA #### [facility] [address] [place] [address] High Heel Builder: Rito Morris MD Trichomonas NOT REPORTED Normal NONE [facility] Comment on above: Performed By: #### U MICAO, UA #### [facility] [address] [place], [place] [phone] High Heel Builder: Rito Morris MD Yeast LM Ql (Urine sed) NOT REPORTED Normal NONE [facility] Comment on above: Performed By: #### U SUZANNEO, UA #### [facility] [address] [place] [address] High Heel Builder: Rito Morris MD XR CHEST PORTABLEon 04-28-20 XR CHEST PORTABLE EXAMINATION: ONE XRAY VIEW OF THE CHEST 04/28/2019 6:37 am COMPARISON: CT 04/28/2019 HISTORY: ORDERING SYSTEM PROVIDED HISTORY: chest pain TECHNOLOGIST PROVIDED HISTORY: chest pain FINDINGS: Hyperinflation of the lungs. No focal consolidation. No cardiomegaly. No pulmonary edema. IMPRESSION: No acute findings. Hyperinflation of the lungs can be seen with COPD. Interpreted by: Kiran Segal MD Signed by: Kiran Segal MD 04/28/19 Final result Normal [facility] Vital Signs Date Time Vital Sign Value Performing Clinician Facility 02-03-2024 08:08-0400 Blood Pressure Location Jaradbelinda PAULSON [facility] 02-03-2024 08:08-0400 Diastolic blood pressure 86 mm[Hg] Jaradbelinda PAULSON [facility] 02-03-2024 08:08-0400 Heart rate 88 /min Jarad PAULSON [facility] 02-03-2024 08:08-0400 Systolic blood pressure 126 mm[Hg] Jarad PAULSON [facility] 05-15-2023 10:35-0400 Body height 177.8 cm Brandy Ruth Other [employer] Other 05-15-2023 10:35-0400 Body mass index (BMI) [Ratio] 19.37 kg/m2 Brandy Ruth Other [employer] Other 05-15-2023 10:35-0400 Body temperature 98.2 [degF] Brandy Ruth Other [employer] Other 05-15-2023 10:35-0400 Body weight 61.24 kg Brandy Ruth Other [employer] Other 05-15-2023 10:35-0400 Diastolic blood pressure 96 mm[Hg] Brandy Ruth Other [employer] Other 05-15-2023 10:35-0400 Respiratory rate 18 /min Brandy Ruth Other [employer] Other 05-15-2023 10:35-0400 SaO2% (BldA) [Mass fraction] 97 % Brandy Ruth Other [employer] Other 05-15-2023 10:35-0400 Systolic blood pressure 121 mm[Hg] Brandy Ruth Other [employer] Other 01-07-2023 08:53-0400 Blood Pressure Location Jarad PAULSON [facility] 01-07-2023 08:53-0400 Diastolic blood pressure 83 mm[Hg] Jarad PAULSON [facility] 01-07-2023 08:53-0400 Heart rate 90 /min Jarad PAULSON [facility] 01-07-2023 08:53-0400 Respiratory rate 16 /min Jarad PAULSON [facility] 01-07-2023 08:53-0400 Systolic blood pressure 111 mm[Hg] Jarad PAULSON [facility] 12-22-2022 07:38-0400 Blood Pressure Location Jaradbelinda PAULSON [facility] 12-22-2022 07:38-0400 Diastolic blood pressure 87 mm[Hg] Jaradbelinda PAULSON [facility] 12-22-2022 07:38-0400 Heart rate 75 /min Jarad PAULSON [facility] 12-22-2022 07:38-0400 Respiratory rate 16 /min Jarad PAULSON [facility] 12-22-2022 07:38-0400 Systolic blood pressure 132 mm[Hg] Jarad PAULSON [facility] 12-03-2022 09:53-0500 Body height 177.8 cm II Parth García Work Phone: [facility] 12-03-2022 09:53-0500 Body weight 61.23 kg II Parth García Work Phone: [facility] 05-16-2019 11:50-0400 BP Diastolic 66 mm[Hg] [facility] , [place] 05-16-2019 11:50-0400 BP Systolic 110 mm[Hg] [facility] [place] 05-16-2019 11:50-0400 Pulse (Heart Rate) 74 /min [facility], [place] 05-16-2019 11:50-0400 Pulse Oximetry 98 % [facility] , [place] 05-16-2019 11:50-0400 Respiratory Rate 16 /min [facility], [place] 05-16-2019 11:15-0400 Body Temperature 97.2 [degF] [facility] 05-16-2019 06:30-0400 BMI (Body Mass Index) 20.23 kg/m2 Bg Humphrey [facility], [place] 05-16-2019 06:30-0400 Body weight 63.96 kg [facility] , [place] 05-16-2019 06:30-0400 Height 177.8 cm Bg Humphrey [facility] , [place] Encounters Encounter Date Encounter Type Care Provider Facility Start: 03-16-2024 ambulatory Jarad Hirschi ty:[facility] Start: 03-09-2024 ambulatory Jarad PAULSON Facili ty:[facility] [place] Start: 03-01-2024 ambulatory Jarad Hirschi ty:[id number] Start: 02-03-2024 End: 02-04-2024 ambulatory Jarad PAULSON Facility:[facility] Start: 02-03-2024 End: 02-03-2024 Lab Drop off Jarad PAULSON [facility] Start: 02-03-2024 End: 02-03-2024 Patient encounter procedure Jarad PAULSON [facility] Start: 11-02-2023 ambulatory Jarad PAULSON Facili ty:[facility] [place] Start: 05-15-2023 End: 05-15-2023 ambulatory Brandy Ruth Other [employer] Other Start: 05-15-2023 Office outpatient ne w 10 minutes Brandy Ruth [facility] Start: 02-11-2023 End: 02-11-[address] PARTH GARCÍA Facility:[facility] Start: 02-10-2023 End: 02-10-[address] PARTH GARCÍA Facility:[facility] Start: 02-03-2023 Encounter for other preprocedural examination DR JARAD PAULSON . [facility] Start: 02-03-2023 Encounter for preprocedural cardiovascular examination DR JARAD PAULSON . [facility] Start: 02-03-2023 Encounter for preprocedural laboratory examination DR JARAD PAULSON . [facility] Start: 01-28-2023 End: 01-29-[address] PARTH GARCÍA Facility:[facility] Start: 01-28-2023 End: 01-29-2023 Encounter for preprocedural laboratory examination DR PARTH GARCÍA Facility:[facility] Start: 01-07-2023 End: 01-07-2023 Patient encounter procedure Jarad PAULSON [facility] Start: 12-24-2022 End: 12-25-[address] PARTH GARCÍA Facility:[facility] Start: 12-22-2022 End: 12-22-2022 Patient encounter procedure Jarad PAULSON [facility] Start: 12-03-2022 End: 12-03-2022 ambulatory Jarad [place] Facility:[facility] Start: 12-03-2022 End: 12-03-2022 ambulatory II Parth García Work Phone: [facility] Work Phone: Start: 12-03-2022 End: 12-03-2022 Patient encounter procedure II Parth Ricky Work Phone: [facility] [place] Work Phone: Start: 11-15-2022 End: 11-16-[address] PARTH GARCÍA Facility:[facility] Start: 10-22-2022 End: 10-22-2022 Patient encounter procedure Jarad PAULSON [facility] Start: 10-15-2022 End: 10-16-[address] PARTH GARCÍA Facility:[facility] Start: 05-16-2019 End: 05-16-2019 Patient encounter procedure BG HUMPHREY [facility] Start: 05-16-2019 End: 05-16-2019 Subsequent hospital visit by physician Bg Humphrey Work Phone: [facility] Comment on above: Calculus of gallblad octavio with cholecystitis without biliary obstruction, unspecified cholecystitis acuity (Primary Dx) Start: 05-01-2019 Emergency department patient visit [facility] Start: 04-28-2019 End: 04-28-2019 Emergency department patient visit [facility] Procedures Date Procedure Procedure Detail Performing Clinician Start: 02-03-2024 Flexible cystoscopy Alba PAULSON Start: 12-22-2022 Transrectal needle b iopsy of prostate Jarad SHEA Start: 12-03-2022 MR prostate wo/w con II Parth Ricky Work Phone: Start: 10-22-2022 Cystoscopy Jarad MCDANIELS TERS Start: 10-15-[address] PARTH GARCÍA Comment on above: Performed By: #### P SAD #### [facility] [address] [place] [address] Dr. Yordan Holt Start: 10-23-2021 Cystoscopy Jarad WA TERS Start: 09-10-2020 Cystoscopy Jarad WA TERS Start: 09-25-2019 Cystoscopy Jarad WA TERS Start: 05-16-2019 ENCOURAGE DEEP BREAT [place] AND COUGHING PARTH GARCÍA Start: 05-16-2019 PLACE INTERMITTENT PNEUMATIC COMPRESSION DEVICE PARTH GARCÍA Start: 05-16-2019 AMBULATE PATIENT PARTH RICKY Start: 05-16-2019 DIET GENERAL PARTH TAVERA RY Start: 05-16-2019 FULL CODE PARTH LIANG RY Start: 05-16-2019 INITIATE OXYGEN THER APY PROTOCOL PARTH GARCÍA Start: 05-16-2019 NOTIFY PHYSICIAN (SPECIFY) PARTH GARCÍA Start: 05-16-2019 TOBACCO CESSATION EDUCATION PARTH GARCÍA Start: 05-16-2019 VITAL SIGNS PARTH LIANG RY Start: 05-16-2019 WOUND CARE PARTH LIANG RY Start: 05-16-2019 Level iv surg pathol ogy gross&microscopic exam PARTH GARCÍA Start: 05-16-2019 INITIATE OXYGEN THER APY PROTOCOL PARTH GARCÍA Start: 05-16-2019 BEDREST PARTH DIAZ Start: 05-16-2019 NOTIFY PHYSICIAN (SPECIFY) PARTHLUIS GARCÍA Start: 05-16-2019 NURSING COMMUNICATION Brian HEATONJEAN CARLOSEFRAIN GARCÍA Start: 05-16-2019 VITAL SIGNS PARTH DIAZ Start: 05-16-2019 Gluc bld gluc mntr d ev cleared fda spec home use PARTH GARCÍA Start: 05-16-2019 MEASURE HEIGHT AND LENGTH PARTH GARCÍA Start: 05-16-2019 MEASURE WEIGHT PARTH Cummins ERRYehuda Start: 05-16-2019 NURSING COMMUNICATION D JEAN CARLOS GARCÍA Start: 05-16-2019 PLACE INTERMITTENT PNEUMATIC COMPRESSION DEVICE PARTH GARCÍA Start: 05-16-2019 Prothrombin time PARTH GARCÍA Start: 05-16-2019 Urine test visual color cmprsn meths PARTH GARCÍA Start: 05-16-2019 INITIATE OXYGEN THER APY PROTOCOL PARTH GARCÍA Start: 05-16-2019 INSERT PERIPHERAL IV DA ASHTYNLUIS GARCÍA Start: 05-16-2019 NOTIFY PHYSICIAN (SPECIFY) PARTH GARCÍA Start: 05-16-2019 VERIFY INFORMED CONSENT PARTH GARCÍA Start: 05-16-2019 VITAL SIGNS PARTH DIAZ Start: 05-01-2019 Us abdominal real ti me w/image limited PARTH GARCÍA Start: 05-01-2019 Assay of lactate PARTH GARCÍA Start: 05-01-2019 Assay of lipase PARTH GARCÍA Start: 05-01-2019 Assay of troponin quantitative PARTH GARCÍA Start: 05-01-2019 Basic metabolic pane l calcium total PARTH GARCÍA Start: 05-01-2019 Blood count complete auto&auto difrntl wbc PRATH GARCÍA Start: 05-01-2019 Hepatic function panel PARTH GARCÍA Start: 05-01-2019 Ecg routine ecg w/le ast 12 lds w/i&r PARTH GARCÍA Start: 04-28-2019 Ct thorax w/contrast material PARTH GARCÍA Start: 04-28-2019 Urinalysis microscopic only PARTH GARCÍA Start: 04-28-2019 Urnls dip stick/tabl et rgnt auto w/o microscopy PARTH GARCÍA Start: 04-28-2019 Radiologic exam ches t single view PARTH GARCÍA Start: 04-28-2019 Assay of lipase PARTH GARCÍA Start: 04-28-2019 Hepatic function panel PARTH GARCÍA Start: 04-28-2019 Assay of troponin quantitative PARTH GARCÍA Start: 04-28-2019 Basic metabolic pane l calcium total PARTH GARCÍA Start: 04-28-2019 Blood count complete auto&auto difrntl wbc PARTH GARCÍA Start: 04-28-2019 BRAIN NATRIURETIC PEPTIDE PARTH GARCÍA Start: 04-28-2019 Prothrombin time PARTH GARCÍA Start: 04-28-2019 Thromboplastin time partial plasma/whole blood PARTH GARCÍA Start: 04-28-2019 Ecg routine ecg w/le ast 12 lds w/i&r PARTH GARCÍA Start: 04-28-2019 INSERT PERIPHERAL IV DA ASHTYN GARCÍA Start: 04-28-2019 TELEMETRY MONITORING GABBY GARCÍA Start: 04-28-2019 VITAL SIGNS PARTH DIAZ Start: 09-05-2018 Cystoscopy Jarad BARKER Comment on above: 05/05/2012, 09/11/20 12, 12/08/2012, 08/17/2013, 11/16/2013, 02/22/2014, 05/17/2014, 05/26/2016, 06/17/2017, 09/05/2018 Start: 08-19-2015 Transrectal biopsy o f prostate using ultrasound guidance Jarad PAULSON Start: 05-30-2012 Cystoscopic removal of ureteric stent Jarad PAULSON Start: 05-18-2012 Cystoscopy and transurethral resection of bladder tumor Jarad PAULSON Comment on above: Cystoscopy, rt rg, r ight ureter, TURBT and right stent placement Plan of Treatment Date Care Activity Detail Author Start: 05-27-2019 Influenza vaccination Flu vaccine (# 1) [place], [place] Start: 2015 Colon cancer screen colonoscopy Colon cancer screen colonoscopy [place], [place] Start: 2015 Shingles Vaccine (1 of 2) Griffin gles Vaccine (1 of 2) [place] Start: 2005 Lipid screen Lipid screen [place], [place] Start: 1984 DTaP/Tdap/Td vaccine (1 - Tdap) DTaP/Tdap/Td vaccine (1 - Tdap) [place], [place] Start: 1980 HIV screen HIV screen [place], [place] Start: 1965 Hepatitis C screen Hepatitis C steff n [place], [place] End: 05-16-2019 Blood glucose - POCT Blood glucose - POCT Point of Care Testing Routine One Time for 1 Occurrences starting 05/16/2019 until 05/16/2019 [place] Comment on above: One Time for 1 Occur rences starting 05/16/2019 until 05/16/2019 Initiate Oxygen Ther apy Protocol Initiate Oxygen Therapy Protocol Respiratory Care Routine Daily until discontinued starting 05/16/2019 [place] Comment on above: Daily until disconti nued starting 05/16/2019 Phase I & II - meter ed glucose Phase I & II - metered glucose Point of Care Testing Routine As Needed until discontinued starting 05/16/2019 [place] Comment on above: As Needed until disc ontinued starting 05/16/2019 End: 05-16-2019 , urine , urine Lab Routine One Time for 1 Occurrences starting 05/16/2019 until 05/16/2019 [place] Comment on above: One Time for 1 Occur rences starting 05/16/2019 until 05/16/2019 End: 05-16-2019 Protime-INR Protime-INR Lab Routine One Time for 1 Occurrences starting 05/16/2019 until 05/16/2019 [place] Comment on above: One Time for 1 Occur rences starting 05/16/2019 until 05/16/2019 Surgical Pathology Surgical Path ology Lab Routine ONE TIME for 1 Occurrences starting 05/16/2019 [place] Comment on above: ONE TIME for 1 Occur rences starting 05/16/2019 Payers Date Payer Category Payer Self-pay [id number] 2019 Private Health Insurance RON KAHN xxxxxxxxxx 2019-Present [phone] [address] [place] [address] xxxxxxxxxx [id number] 1965 Unknown [id number] .[id number] 1965 Unknown [id number] .173 1965 Unknown [id number] .173 1965 Unknown [id number] .593 1965 Unknown [id number] [id number] .593 1965 Unknown [id number] 2.16.840.1.021190.3.579.2 .593 1965 Unknown [id number] 2.16.840.1.441500.3.579.2 .593 1965 Unknown [id number] 2.16.840.1.375407.3.579.2 .593 1965 Unknown [id number] 2.16.840.1.944592.3.579.2 .593 1965 Unknown [id number] 2.16.840.1.349495.3.579.2 .727 1965 Unknown [id number] 2.16.840.1.455381.3.579.2 .727 1965 Unknown [id number] 2.16.840.1.267928.3.579.2 .727 1965 Unknown [id number] 2.16.840.1.635110.3.579.2 .727 1965 Unknown [id number] [id number] .727 1959 Private Health Insurance [id number] Unknown [id number] .531 Social History Date Type Detail Facility Start: 05-16-2019 End: 02-03-2024 Tobacco smoking status NHIS Former smoker [facility] History of tobacco use Cigarette Smoker M [place], [place] Start: 05-16-2019 Alcohol intake Yes [facility] Start: 04-28-2019 Alcohol Comment social Janine Ricardo [place], [place] Sex Assigned At Not on file [place], [place] Tobacco smoking status No Smokin g Status Entered [facility] Start: 1965 Sex Assigned At Male F [facility] Tobacco smoking status Never [facility] Functional Status Date Assessment Result Facility 02-03-2024 Functional Status N/A [facility] 01-07-2023 Functional Status N/A [facility] 12-22-2022 Functional Status N/A [facility] Clinical Notes 05-15-2013 to 02-03-2024 Note Date & Type Note Facility 02-03-2024 Hospital Discharg e instructions Patient Education 02/03/2024 08:40:42 Transurethral Resection of Bladder Tumor Transurethral Resection of Bladder Tumor Transurethral resection of a bladder tumor is the removal (resection) of cancerous tissue (tumor) from the inside wall of the bladder. The bladder is the organ that holds urine. The tumor is removed through the tube that carries urine out of the body (urethra). In a transurethral resection, a thin telescope with a light, a tiny camera, and an electric cutting edge (resectoscope) is passed through the urethra. In men, the opening of the urethra is at the end of the penis. In women, it is just above the opening of the vagina. Tell a health care provider about: Any allergies you have. All medicines you are taking, including vitamins, herbs, eye drops, creams, and acjk-ehg-chjulze medicines. Any problems you or family members have had with anesthetic medicines. Any bleeding problems you have. Any surgeries you have had. Any medical conditions you have, including recent urinary tract infections. Whether you are or may be . What are the risks? Generally, this is a safe procedure. However, problems may occur, including: Infection. Bleeding. Allergic reactions to medicines. Damage to nearby structures or organs. Difficulty urinating from blockage of the urethra or not being able to urinate (urinary retention). Deep vein thrombosis. This is a blood clot that can develop in your leg. Recurring cancer. What happens before the procedure? When to stop eating and drinking Follow instructions from your health care provider about what you may eat and drink before your procedure. These may include: 8 hours before your procedure ?Stop eating most foods. Do not eat meat, fried foods, or fatty foods. ?Eat only light foods, such as toast or crackers. ?All liquids are okay except energy drinks and alcohol. 6 hours before your procedure ?Stop eating. ?Drink only clear liquids, such as water, clear fruit juice, black coffee, plain tea, and sports drinks. ?Do not drink energy drinks or alcohol. 2 hours before your procedure ?Stop drinking all liquids. ?You may be allowed to take medicines with small sips of water. Medicines Ask your health care provider about: Changing or stopping your regular medicines. This is especially important if you are taking diabetes medicines or blood thinners. Taking medicines such as aspirin and ibuprofen. These medicines can thin your blood. Do not take these medicines unless your health care provider tells you to take them. Taking hlap-zcw-zxaydzs medicines, vitamins, herbs, and supplements. General instructions If you will be going home right after the procedure, plan to have a responsible adult: ?Take you home from the hospital or clinic. You will not be allowed to drive. ?Care for you for the time you are told. Ask your health care provider what steps will be taken to help prevent infection. These steps may include: ? Washing skin with a germ-killing soap. ? Taking antibiotic medicine. Do not use any products that contain nicotine or tobacco for at least 4 weeks before the procedure. These products include cigarettes, chewing tobacco, and vaping devices, such as e-cigarettes. If you need help quitting, ask your health care provider. What happens during the procedure? An IV will be inserted into one of your veins. You will be given one or more of the following: ?A medicine to help you relax (sedative). ?A medicine that is injected into your spine to numb the area below and slightly above the injection site (spinal anesthetic). ?A medicine that is injected into an area of your body to numb everything below the injection site (regional anesthetic). ?A medicine to make you fall asleep (general anesthetic). Your legs will be placed in foot rests (stirrups) to open your legs and bend your knees. The resectoscope will be passed through your urethra and into your bladder. The part of your bladder with the tumor will be resected by the cutting edge of the resectoscope. Fluid will be passed to rinse out the cut tissues (irrigation). The resectoscope will then be taken out. A small, thin tube (catheter) will be passed through your urethra and into your bladder. The catheter will drain urine into a bag outside of your body. The procedure may vary among health care providers and hospitals. What happens after the procedure? Your blood pressure, heart rate, breathing rate, and blood oxygen level will be monitored until you leave the hospital or clinic. You may continue to receive fluids and medicines through an IV. You will be given pain medicine to relieve pain. You will have a catheter to drain your urine. ?The amount of urine will be measured. If you have blood in your urine, your bladder may be rinsed out by passing fluid through your catheter. You will be encouraged to walk as soon as you can. You may have to wear compression stockings. These stockings help to prevent blood clots and reduce swelling in your legs. If you were given a sedative during the procedure, it can affect you for several hours. Do not drive or operate machinery until your health care provider says that it is safe. Summary Transurethral resection of a bladder tumor is the removal (resection) of a cancerous growth (tumor) on the inside wall of the bladder. To do this procedure, your health care provider uses a thin telescope with a light, a tiny camera, and an electric cutting edge (resectoscope) that is guided to your bladder through your urethra. The part of your bladder that is affected by the tumor will be resected by the cutting edge of the resectoscope. A catheter will be passed through your urethra and into your bladder. The catheter will drain urine into a bag outside of your body. If you will be going home right after the procedure, plan to have a responsible adult take you home from the hospital or clinic. You will not be allowed to drive. This information is not intended to replace advice given to you by your health care provider. Make sure you discuss any questions you have with your health care provider. Document Revised: 09/17/2022 Document Reviewed: 09/17/2022 [employer] Patient Education 2022 [email or web address]. Follow Up Care 01/12/2024 10:26:16 With:SHEA JARA, Jarad Hendrickson, URL Address: [address] [place] [address] [place] [address]- When: Unknown [facility] 05-15-2023 Evaluation note Encounter Date Diagnosis Assessment Notes Apr, Bee sting, undetermined intent, initial encounter (ICD-10 - T63.444A) Insect bites and stings home care material was printed Drink plenty fluids, get plenty of rest. Take the prednisone as prescribed until gone starting tomorrow. Continue to take the Benadryl for swelling and itching. Follow-up with your family physician if no improvement in 1 to 2 days. Go to the ER for worsening symptoms or concerns [employer] Other 04-14-2023 Hospital Discharge instructions Patient Education 01/07/2023 09:24:00 Hematuria, Adult Hematuria, Adult Hematuria is blood in the urine. Blood may be visible in the urine, or it may be identified with a test. This condition can be caused by infections of the bladder, urethra, kidney, or prostate. Otherpossible causes include: Kidney stones. Cancer of the urinary tract. Too much calcium in the urine. Conditions that are passed from parent to child (inherited conditions). Exercise that requires a lot of energy. Infections can usually be treated with medicine, and a kidney stone usually will pass through your urine. If neither of these is the cause of your hematuria, more tests may be needed to identify the cause of your symptoms. It is very important to tell your health care provider about any blood in your urine, even if it ispainless or the blood stops without treatment. Blood in the urine, when it happens and then stops and then happens again, can be a symptom of a very serious condition, including cancer. There is no pain in the initial stages of many urinary cancers. Follow these instructions at home: Medicines Take fetl-peo-vvrdghr and prescription medicines only as told by your health care provider. If you were prescribed an antibiotic medicine, take it as told by your health care provider. Do notstop taking the antibiotic even if you start to feel better. Eating and drinking Drink enough fluid to keep your urine clear or pale yellow. It is recommended that you drink 3 4 quarts (2.8 3.8 L) a day. If you have been diagnosed with an infection, it is recommended that you drink cranberry juice in addition to large amounts of water. Avoid caffeine, tea, and carbonated beverages. These tend to irritate the bladder. Avoid alcohol because it may irritate the prostate (men). General instructions If you have been diagnosed with a kidney stone, follow your health care provider's instructions about straining your urine to catch the stone. Empty your bladder often. Avoid holding urine for long periods of time. If you are female: ?After a bowel movement, wipe from front to back and use each piece of toilet paper only once. ?Empty your bladder before and after sex. Pay attention to any changes in your symptoms. Tell your health care provider about any changes or any new symptoms. It is your responsibility to get your test results. Ask your health care provider, or the department performing the test, when your results will be ready. Keep all follow-up visits as told by your health care provider. This is important. Contact a health care provider if: You develop back pain. You have a fever. You have nausea or vomiting. Your symptoms do not improve after 3 days. Your symptoms get worse. Get help right away if: You develop severe vomiting and are unable take medicine without vomiting. You develop severe pain in your back or abdomen even though you are taking medicine. You pass a large amount of blood in your urine. You pass blood clots in your urine. You feel very weak or like you might faint. You faint. Summary Hematuria is blood in the urine. It has many possible causes. It is very important that you tell your health care provider about any blood in your urine, even ifit is painless or the blood stops without treatment. Take lvhi-khe-qqyshxe and prescription medicines only as told by your health care provider. Drink enough fluid to keep your urine clear or pale yellow. This information is not intended to replace advice given to you by your health care provider. Make sure you discuss any questions you have with your health care provider. Document Released: 09/12/2006 Document Revised: 02/06/2020 Document Reviewed: 10/15/2017 [employer] Patient Education 2019 [email or web address]. 01/07/2023 07:52:39 Benign Prostatic Hyperplasia Benign Prostatic Hyperplasia Benign prostatic hyperplasia (BPH) is an enlarged prostate gland that is caused by the normal agingprocess and not by cancer. The prostate is a walnut-sized gland that is involved in the production of semen. It is located in front of the rectum and below the bladder. The bladder stores urine and the urethra is the tube that carries the urine out of the body. The prostate may get bigger as a man gets older. An enlarged prostate can press on the urethra. This can make it harder to pass urine. The build-up of urine in the bladder can cause infection. Back pressure and infection may progress to bladder damage and kidney (renal) failure. What are the causes? This condition is part of a normal aging process. However, not all men develop problems from this condition. If the prostate enlarges away from the urethra, urine flow will not be blocked. If it enlarges toward the urethra and compresses it, there will be problems passing urine. What increases the risk? This condition is more likely to develop in men over the age of 50 years. What are the signs or symptoms? Symptoms of this condition include: Getting up often during the night to urinate. Needing to urinate frequently during the day. Difficulty starting urine flow. Decrease in size and strength of your urine stream. Leaking (dribbling) after urinating. Inability to pass urine. This needs immediate treatment. Inability to completely empty your bladder. Pain when you pass urine. This is more common if there is also an infection. Urinary tract infection (UTI). How is this diagnosed? This condition is diagnosed based on your medical history, a physical exam, and your symptoms. Tests will also be done, such as: A post-void bladder scan. This measures any amount of urine that may remain in your bladder after you finish urinating. A digital rectal exam. In a rectal exam, your health care provider checks your prostate by putting a lubricated, gloved finger into your rectum to feel the back of your prostate gland. This exam detects the size of your gland and any abnormal lumps or growths. An exam of your urine (urinalysis). A prostate specific antigen (PSA) screening. This is a blood test used to screen for prostate cancer. An ultrasound. This test uses sound waves to electronically produce a picture of your prostate gland. Your health care provider may refer you to a specialist in kidney and prostate diseases (urologist). How is this treated? Once symptoms begin, your health care provider will monitor your condition (active surveillance or watchful waiting). Treatment for this condition will depend on the severity of your condition. Treatment may include: Observation and yearly exams. This may be the only treatment needed if your condition and symptoms are mild. Medicines to relieve your symptoms, including: ?Medicines to shrink the prostate. ?Medicines to relax the muscle of the prostate. Surgery in severe cases. Surgery may include: ?Prostatectomy. In this procedure, the prostate tissue is removed completely through an open incision or with a laparoscope or robotics. ?Transurethral resection of the prostate (TURP). In this procedure, a tool is inserted through the opening at the tip of the penis (urethra). It is used to cut away tissue of the inner core of the prostate. The pieces are removed through the same opening of the penis. This removes the blockage. ?Transurethral incision (TUIP). In this procedure, small cuts are made in the prostate. This lessens the prostate's pressure on the urethra. ?Transurethral microwave thermotherapy (TUMT). This procedure uses microwaves to create heat. The heat destroys and removes a small amount of prostate tissue. ?Transurethral needle ablation (TUNA). This procedure uses radio frequencies to destroy and remove a small amount of prostate tissue. ?Interstitial laser coagulation (ILC). This procedure uses a laser to destroy and remove a small amount of prostate tissue. ?Transurethral electrovaporization (TUVP). This procedure uses electrodes to destroy and remove a small amount of prostate tissue. ?Prostatic urethral lift. This procedure inserts an implant to push the lobes of the prostate away from the urethra. Follow these instructions at home: Take govn-vpb-ozokcsn and prescription medicines only as told by your health care provider. Monitor your symptoms for any changes. Contact your health care provider with any changes. Avoid drinking large amounts of liquid before going to bed or out in public. Avoid or reduce how much caffeine or alcohol you drink. Give yourself time when you urinate. Keep all follow-up visits as told by your health care provider. This is important. Contact a health care provider if: You have unexplained back pain. Your symptoms do not get better with treatment. You develop side effects from the medicine you are taking. Your urine becomes very dark or has a bad smell. Your lower abdomen becomes distended and you have trouble passing your urine. Get help right away if: You have a fever or chills. You suddenly cannot urinate. You feel lightheaded, or very dizzy, or you faint. There are large amounts of blood or clots in the urine. Your urinary problems become hard to manage. You develop moderate to severe low back or flank pain. The flank is the side of your body between the ribs and the hip. These symptoms may represent a serious problem that is an emergency. Do not wait to see if the symptoms will go away. Get medical help right away. Call your local emergency services (911 in the [place] Do not drive yourself to the hospital. Summary Benign prostatic hyperplasia (BPH) is an enlarged prostate that is caused by the normal aging process and not by cancer. An enlarged prostate can press on the urethra. This can make it hard to pass urine. This condition is part of a normal aging process and is more likely to develop in men over the age of 50 years. Get help right away if you suddenly cannot urinate. This information is not intended to replace advice given to you by your health care provider. Make sure you discuss any questions you have with your health care provider. Document Released: 09/12/2006 Document Revised: 08/07/2019 Document Reviewed: 10/17/2017 [employer] Patient Education 2020 [employer]. Follow Up Care 12/13/2022 16:29:11 With:SHEA JARA, Jarad Hendrickson, URL Address: [facility] [address] [place] [address]- [phone] When: Unknown Comments:Will schedule Cysto, Parrish RG, parrish ureter [facility] 03-29-2023 Hospital Discharge instructions Patient Education 12/22/2022 08:00:14 Cancer Screening for Men Cancer Screening for Men A cancer screening is a test or exam that checks for cancer. Your health care provider will recommend specific cancer screenings based on your age, personal history, and family history of cancer. Work with your health care provider to create a cancer screening schedule that protects your health. Why is cancer screening done? Cancer screening is done to look for cancer in the very early stages, before it spreads and becomesharder to treat and before you would start to notice symptoms. Finding cancer early improves the chances of successful treatment. It may save your life. Who should be screened for cancer? All men should be screened for colorectal cancer and skin cancer. Your health care provider may recommend screenings for other types of cancer if: You had cancer before. You have a family member with cancer. You have abnormal genes that could increase the risk of cancer. You have risk factors for certain cancers, such as smoking. When you should be screened for cancer depends on: Your age. Your medical history and your family's medical history. Certain lifestyle factors, such as smoking. Environmental exposure, such as to asbestos. What are some common cancer screenings? Lung cancer Lung cancer screening is done with a CT scan that looks for abnormal cells in the lungs. Discuss lung cancer screening with your health care provider if you are 55 74 years old and if any of the following apply to you: You currently smoke. You used to smoke heavily. You have a smoking history of 1 pack a day for 30 years or 2 packs a day for 15 years. You have quit smoking within the past 15 years. If you smoke heavily or if you used to smoke, you may need to be screened every year. Prostate cancer Prostate cancer screening is done with blood tests and an exam in which a health care provider usesa gloved finger to check prostate size (digital rectal exam). You may need to be screened for prostate cancer if: You have risk factors of prostate cancer, such as being or having a close family member with prostate cancer. You have inherited gene changes or a genetic condition, including BRCA1 or BRCA2 gene mutations or Barker syndrome. You have symptoms of prostate cancer, such as problems urinating or erectile dysfunction. Prostate cancer screening for men with average risk may start at age 50. Men with risk factors may need to be screened earlier at age 40 45. Once you have been screened for prostate cancer, future screening may be recommended based on the results of your blood tests. Colorectal cancer All adults should have screening for colorectal cancer starting at age 50 and continuing until age 75. Your health care provider may recommend screening at age 45. You will have tests every 1 10 years, depending on your results and the type of screening test. If you have a family history of colon or rectal cancer or other risk factors, you may need to start having screenings earlier. Talk with your health care provider about which screening test is right for you and how often you should be screened. Colorectal cancer screening looks for cancer or for growths called polyps that often form before cancer starts. Tests to look for cancer or polyps include: Colonoscopy or flexible sigmoidoscopy. For these procedures, a flexible tube with a small camera isinserted into the rectum. CT colonography. This test uses X-rays and a contrast dye to check the colon for polyps. If a polypis found, you may need to have a colonoscopy so the polyp can be located and removed. Tests to look for cancer in the stool (feces) include: Guaiac-based fecal occult blood test (FOBT). This test detects blood in stool. It can be done at home with a kit. Fecal immunochemical test (FIT). This test detects blood in stool. For this test, you will need to collect stool samples at home. Stool DNA test. This test looks for blood in stool and any changes in DNA that can lead to colon cancer. For this test, you will need to collect a stool sample at home and send it to a lab. Skin cancer Skin cancer screening is done by checking the skin for unusual moles or spots and any changes in existing moles. Your health care provider should check your skin for signs of skin cancer at every physical exam. You should check your skin every month and tell your health care provider right away if anything looks unusual. Men with a cjzoot-uxik-tzqxsb risk for skin cancer may want to see a customer energy specialist (staff analyst) for an annual body check. Where to find more information National Cancer [place]: https://www.cancer.gov/about-cancer/screening Centers for Disease Control and Prevention: https://www.cdc.gov/cancer/dcpc/prevention/screening.htm [place] [employer]: https://www.cancer.org/latest-news/1-lilbng-indktfiqs-vnqtm-qnr-lll.html Contact a health care provider if: You have concerns about any signs or symptoms of cancer, such as: ?Moles that have an unusual shape or color. ?Changes in existing moles. ?A sore on your skin that does not heal. ?Blood in your urine or stool. ?Fatigue that does not go away. ?Frequent pain or cramping in your abdomen. ?Coughing or trouble breathing that does not go away. ?Coughing up blood. ?Losing weight without trying. ?Changes in urination habits. ?Painful urination or ejaculation. Summary Be aware of and watch for signs and symptoms of cancer, especially symptoms of lung cancer, prostate cancer, colorectal cancer, and skin cancer. Early detection of cancer with cancer screening may save your life. Talk with your health care provider about your specific cancer risks. Work together with your health care provider to create a cancer screening plan that is right for you. This information is not intended to replace advice given to you by your health care provider. Make sure you discuss any questions you have with your health care provider. Document Released: 2017 Document Revised: 06/01/2019 Document Reviewed: 2017 [employer] Patient Education [place] Follow Up Care 12/14/2022 15:49:50 With:SHEA JARA, Jarad Hendrickson, URL Address: [facility] [address] [place] [address]- When: Unknown [facility] 02-21-2023 NotePROCEDURE: XR SHOULDER LT 2V or > HISTORY: Pain of left shoulder joint , chronic; increasing in severity COMPARISON: None. FINDINGS: BONES:No fracture, acute abnormality, or significant arthropathy. SOFT TISSUES:No visible soft tissue swelling. EFFUSION:None visible. OTHER: Negative. IMPRESSION: 1. Mild degenerative change of the acromioclavicular joint which would predispose to rotator cuff injury. 2. Unremarkable glenohumeral joint. Electronically authenticated by: GRISEL THOMAS Date: 2022-11-16 10:35[facility]01[facility]27[facility] Evaluation + Plan note Diagnostic Tests Pending * UroVysion Fish and Urine Cyto ([facility]) 10/22/22 [facility] 08-20-2013 History general Narrative - Reported* Type Description Date Medical History bladder cancer 10 years ago Surgical History cholecystectomy Surgical History bladder scope [employer] Other Evaluation + Plan note Future Appointments Appointment Date:01/07/2023 08:45:00 AM Scheduled Provider:Jarad PAULSON MD Location:[facility] Appointment Type:URO Office Visit Diagnostic Tests Pending * Prostate Histology ([facility]) 12/22/22 [facility] Evaluation + Plan note Future Appointments Appointment Date:03/09/2024 09:00:00 AM Scheduled Provider: Location:[facility] Appointment Type:URO Nurse Visit Appointment Date:03/16/2024 08:45:00 AM Scheduled Provider:Jarad PAULSON MD Location:[facility] Appointment Type:URO Office Visit [facility] Evaluation + Plan note Future Appointments Appointment Date:03/09/2024 09:00:00 AM Scheduled Provider: Location:[facility] Appointment Type:URO Nurse Visit Appointment Date:03/16/2024 08:45:00 AM Scheduled Provider:Jarad PAULSON MD Location:[facility] Appointment Type:URO Office Visit Diagnostic Tests Pending * UroVysion Fish and Urine Cyto ([facility]) [facility] Work Phone: Hospital course Narrative No data available for this section [facility] Hospital Discharge instructions No data available for this section [facility] Progress note No data available for this section [facility] Discharge Instructions * Instructions* Mary Barrett, RN - 05/16/2019 SAME DAY SURGERY DISCHARGE INSTRUCTIONS 1. Do not drive or operate hazardous machinery for 24 hours. 2. Do not make important personal or business decisions for 24 hours. 3. Do not drink alcoholic beverages for 24 hours. 4. Do not smoke tobacco products for 24 hours. 5. Eat light foods (Jell-O, soups, etc....) and drink plenty of fluids (water, Sprite, etc...) up to 8 glasses per day, as you can tolerate. 6. The drugs you were given may alter judgement. Please do not endanger yourself. 7. We encourage you to not stay alone today. Have a responsible adult stay with you for the first 24 hours. 8. You may have mild nausea for a few days. 9. Limit your activities for 24 hours. Do not engage in heavy work until your surgeon gives you permission. * Attachments The following attachments cannot be sent through Care Everywhere. * Cholecystectomy: Post-op (Thai) documented in this encounter History of Present Illness * Mary Barrett RN - 05/16/2019 12:05 PM EDT Patient verbalizes readiness for discharge. All criteria met. IV removed. All belongings provided to patient. Patient will be discharge via wheelchair in the care of his spouse, Chastity. Discharge Criteria Inpatients must meet Criteria 1 through 7. All other patients are either YES or N/A. If a NO is chosen then Anesthesia or Surgeon must be notified. 1. Minimum 30 minutes after last dose of sedative medication, minimum 120 minutes after last dose of reversal agent. Yes 2. Systolic BP stable within 20 mmHg for 30 minutes & systolic BP between 90 & 180 or within 10 mmHg of baseline. Yes 3. Pulse between 60 and 100 or within 10 bpm of baseline. Yes 4. Spontaneous respiratory rate >/= 10 per minute. Yes 5. SaO2 >/= 95 or >/= baseline. Yes 6. Able to cough and swallow or return to baseline function. Yes 7. Alert and oriented or return to baseline mental status. Yes 8. Demonstrates controlled, coordinated movements, ambulates with steady gait, or return to baseline activity function. Yes 9. Minimal or no pain or nausea, or at a level tolerable and acceptable to patient. Yes 10. Takes and retains oral fluids as allowed. Yes 11. Procedural / perioperative site stable. Minimal or no bleeding. Yes 12. If GI endoscopy procedure, minimal or no abdominal distention or passing flatus. N/A 13. Written discharge instructions and emergency telephone number provided. Yes 14. Accompanied by a responsible adult. Yes Adult patient discharged from facility without responsible person meets above criteria plus the following: a) remains awake without stimulus for 30 minutes b) oriented appropriate for age c) all vital signs stable d) no significant risk of losing protective reflexes e) able to maintain pre-procedure mobility without assistance f) no nausea or dizziness g) transportation arrangements that do not require patient to operate motor Vehicle. N/A * Mary Barrett RN - 05/16/2019 12:01 PM EDT Discharge instructions reviewed with patient and patient's spouse. Verbalized understanding and denied any questions. * Binu Powers RN - 05/16/2019 8:52 AM EDT Report given to Jolie Barrett RN * Nicolette Lux RN - 05/08/2019 1:26 PM EDT Patient instructed on the pre-operative, intra-operative, and post-operative process. Patient instructed on NPO status. Medication instructions and Pre operative instruction sheet reviewed over the phone. * Nicolette Lux RN - 05/08/2019 10:31 AM EDT Attempted PAT phone call; no answer; message left to return PAT phone call. 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 and Living Will Power of Superintendent Cemetery Latest Code Status on File Code Status Date Activated Date Inactivated Comments Full Code 05/16/2019 10:02 AM Full Code 05/16/2019 6:22 AM 05/16/2019 10:02 AM Advance Directive Response Recorded Date/ Time Advance Directives No May 2:33pm Summary Purpose Family History No Family History Records FoundNo Family History Records FoundNo Family History Records Found No data available for this section No data available for this section No Family History Records FoundNo Family History Records Found Chief Complaint and Reason for Visit Chief Complaint elevated psa prostat e nodule Additional Source Comments Reason for Visit (unrecogniz ed section and content) Status Reason Specialty Diagnoses / Procedures Referre d By Contact Referred To Contact Diagnoses Cholelithiasis CHOLELITHIASIS Procedures ID LAP,CHOLECYSTECTOMY CHOLECYSTECTOMY LAPAROSCOPIC ROBOTIC Bg Humphrey MD [address] [place] [address] [facility] (unrecognized sect ion and content) No Status Records FoundNo Status Records FoundNo Status Records FoundNo Status Records FoundNo Status Records Found INFORMATION SOURCE (unrecogn ized section and content) DATE CREATED AUTHOR 05/18/2019 [facility] DATE CREATED AUTHOR AUTHOR'S ORGANIZ ATION 12/10/2022 [facility] DATE CREATED AUTHOR AUTHOR'S ORGANIZ ATION 03/06/2023 [facility] [place] [facility] DATE CREATED AUTHOR AUTHOR'S ORGANIZ ATION 02/10/2024 [facility] DATE CREATED AUTHOR AUTHOR'S ORGANIZ ATION 02/13/2024 [facility] Patient Care team informatio n (unrecognized section and content) Team Status: Active Member Role Status Dates Parth García II MD Primary Care Provider Active Team Status: Inactive Member Role Status Dates Parth García II MD Primary Care Provider Active Jarad Paulson MD Attending Provider Active Goals (unrecognized section and content) Goals may be documented in a n alternate section FOR RECORDS PERTAINING TO PATIENTS WHO ARE OR HAVE BEEN ENROLLED IN A CHEMICAL DEPENDENCY/SUBSTANCEABUSE PROGRAM, SOME INFORMATION MAY BE OMITTED. This clinical summary was aggregated from multiple sources. Caution should be exercised in using it in the provision of clinical care. This summary normalizes information from multiple sources, and as a consequence, information in this document may materially change the coding, format and clinical context of patient data. In addition, data may be omitted in some cases. CLINICAL DECISIONS SHOULD BE BASED ON THE PRIMARY CLINICAL RECORDS. [employer] provides no warranty or guarantee of the accuracy or completeness of information in this document.
--- NOTE | 2024-02-17 09:31 | P.GSHP_ITS ---
History of Present Illness History of Present Illness Chief complaint: bladder tumor Narrative: Patient presents for preadmission testing. Please see HPI from Dr. Paulson dated February 03, 2024. Review of Systems ROS Narrative Please see ROS from Dr. Paulson dated February 03, 2024. PFSH PFS Medical History (Updated 02/15/24 @ 11:37 by Marva Beatty NP) Renal atrophy ?N26.1 - Atrophy of kidney (terminal) (ICD-10) BPH with obstruction/lower urinary tract symptoms ?N40.1 - Benign prostatic hyperplasia with lower urinary tract symptoms (ICD- 10) ?N13.8 - Other obstructive and reflux uropathy (ICD-10) Bladder cancer ?C67.9 - Malignant neoplasm of bladder, unspecified (ICD-10) Asymptomatic microscopic hematuria ?R31.21 - Asymptomatic microscopic hematuria (ICD-10) Prostate nodule ?N40.2 - Nodular prostate without lower urinary tract symptoms (ICD-10) H/O reduction of closed fracture ?Z87.81 - Personal history of (healed) traumatic fracture (ICD-10) Pneumonia ?J18.9 - Pneumonia, unspecified organism (ICD-10) Shoulder pain ?M25.519 - Pain in unspecified shoulder (ICD-10) Surgical History (Updated 02/15/24 @ 11:37 by Marva Beatty NP) History of cholecystectomy ?Z90.49 - Acquired absence of other specified parts of digestive tract (ICD- 10) H/O colonoscopy ?Z98.890 - Other specified postprocedural states (ICD-10) History of removal of ureteral stent ?Z98.890 - Other specified postprocedural states (ICD-10) S/P ureteral stent placement ?Z96.0 - Presence of urogenital implants (ICD-10) H/O prostate biopsy ?Z98.890 - Other specified postprocedural states (ICD-10) H/O cystoscopy ?Z98.890 - Other specified postprocedural states (ICD-10) Family History (Updated 02/15/24 @ 11:34 by Marva Beatty NP) Other Family history of cancer Social History (Updated 02/17/24 @ 09:12 by Marva Beatty NP) Within the past year, how often did you have a drink containing alcohol: 4 or more times a week Within the past year, how many standard drinks containing alcohol did you have on a typical day: 3 or 4 Smoking status: Former smoker Non-prescribed substance use: denies use 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 Highest level of school completed/degree received: high school graduate Meds Home Medications and Allergies Home Medications ?Medication ?Instructions ?Recorded ?Confirmed ?Type alfuzosin 10 mg tablet,extended 10 mg PO DAILY 02/17/24 02/17/24 History release 24 hr Allergies Allergy/AdvReac Type Severity Reaction Status Date / Time corn Allergy Congested Verified 02/17/24 09:11 Exam Narrative Exam Narrative: Constitutional: Awake, alert, comfortable, well-appearing, nontoxic, interactive, vital signs as charted Head: Normocephalic, atraumatic Neck: Supple, normal appearance, normal range of motion, no meningeal signs, no lymphadenopathy Respiratory: No respiratory distress, breath sounds clear Cardiovascular: Regular rate and rhythm, strong and regular heart tones Abdomen: Nontender, normal bowel sounds, soft, no CVA tenderness Musculoskeletal: Normal gait, no swelling or edema Skin: No rashes or induration, no lesions, only visible skin inspected Neuro: No neurological deficits, normal sensation Psychiatric: Oriented ?3, normal affect Assessment and Plan Assessment and Plan (1) Bladder cancer: (2) Prostate nodule: Plan Cystoscopy/TURBT scheduled with Dr. Paulson March 01, 2024.
[2024-02-17 10:03] LABS: INR 1.05; Partial Thromboplastin Time 30.9 sec (22.3-36.2); Prothrombin Time 11.1 sec (9.0-11.6)
[2024-02-17 10:52] LABS: Anion Gap 13.4; Chloride 104 mmol/L (98-107); Glucose 91 mg/dL (74-106); Potassium 4.4 mmol/L (3.5-5.1); Sodium 139 mmol/L (136-145)
[2024-02-17 10:53] LABS: BUN Creatinine Ratio 12.4; Calcium 8.8 mg/dL (8.5-10.1); Estimated GFR (African America >60 (>=60); Estimated GFR (Non-African Ame >60 (>=60)
[2024-02-17 11:56] LABS: Basophils Percent Auto 0.3 % (0.2-2.0); Hematocrit 43.4 % (42.0-54.0); Hemoglobin 14.4 g/dL (14.0-18.0); Immature Granulocytes Abs Auto 0.01 10^3/uL (0.00-0.03); Immature Granulocytes Pct Auto 0.3 % (0.0-0.5); Lymphocytes Absolute Auto 0.8 10^3/uL (1.2-3.8); Lymphocytes Percent Auto 20.8 % (20.5-60.0); Mean Corpuscular HGB Conc 33.2 g/dL (29.9-35.2); Mean Corpuscular Hemoglobin 30.2 pg (25.9-34.0); Mean Platelet Volume 9.6 fL (9.5-13.5); Monocytes Absolute Auto 0.5 10^3/uL (0.3-0.8); Neutrophils Absolute Auto 2.5 10^3/uL (1.4-6.5); Neutrophils Percent Auto 66.6 % (43.0-75.0); Platelet Count 173 10^3/uL (150-450); Red Blood Count 4.77 10^6/uL (4.70-6.10); Red Cell Distribution Width 12.5 % (11.0-15.0); White Blood Count 3.8 10^3/uL (4.0-11.0)
== END 2024-02-17 08:56 | disposition home or self-care (01) ==
LOC: PST 08:55
PROVIDERS: PCP Internal Medicine; Visit Provider Urology
DX: Z01.810 Encounter for preprocedural cardiovascular examination (principal); Z01.812 Encounter for preprocedural laboratory examination; Z01.818 Encounter for other preprocedural examination; D49.4 Neoplasm of unspecified behavior of bladder
CPT/HCPCS: 71046; 80048; 80053; 85025; 85610; 85730; 93005; G0463

== ENCOUNTER 2024-03-01 08:32 | Day surgery (SDC) | payer OTHER, SELFPAY ==
[2024-02-17 09:27] VITALS: BP 118/76; PULSE 91; TEMP 36.3; O2SAT 100; BMI 19.2
[2024-03-01] VITALS (8 sets, daily range): BP systolic 118–166; BP diastolic 84–105; PULSE 73–84; TEMP 36.1; O2SAT 96–99
--- OUTSIDE RECORDS SUMMARY | 2024-03-01 08:49 | XMS_ITS ---
Patient Summarization (C-CDA 2.1 CCD) Created on: March 01, 2024 VENITA ROSENBERG : 1965 Sex: Male Author Organization Sample organization Care Team Providers Care Net Wpf Developer Name Role Phone Parth García Primary Care Provider [phone] PARTH GARCÍA Primary Care Unavailable OLEKSANDR HOOVER Attending Unavailable PARTH GARCÍA Primary Care Unavailable VENITA CONWAY Attending Unavailable BG HUMPHREY Admitting Unavailable BG HUMPHREY Attending Unavailable PARTH GARCÍA Primary Care Unavailable PARTH GARCÍA Primary Care Physician KERRI García Primary Care Provider MD Jarad Paulson Attending Provider Jarad Paulson Attending Unavailable Jarad Paulson Admitting Unavailable Parth García Primary Care Unavailable JANELL, DR CASTANON Primary Care Unavailable PAULSON ., DR ARBAHAM Attending Unavailable PAULSON ., DR ABRAHAM Consulting Unavailable PAULSON ., DR ABRAHAM Admitting Unavailable ROSARIOELIAS Ricardo Consulting Unavailable JANELL, DR CASTANON Admitting Unavailable JANELL, DR CASTANON Attending Unavailable JANELL, DR CASTANON Consulting Unavailable JANELL, DR CASTANON Primary Care Unavailable ZIBRANDIE, DR GRISEL Hendrickson Consulting Unavailable GARCÍA, DR CASTANON Primary Care Unavailable PAULSON ., DR ABRAHAM Attending Unavailable PAULSON ., DR ABRAHAM Consulting Unavailable PAULSON ., DR ABRAHAM Admapple Unavailable JANELL, DR CASTANON Primary Care Unavailable PAY ., DR TERRY Attending Unavailable PAY ., DR TERRY Admitting Unavailable ZIEBJACK, DR GRISEL Hendrickson Consulting Unavailable PAY ., DR TERRY Consulting Unavailable JANELL, DR CASTANON Primary Care Unavailable PAULSON ., DR ABRAHAM Attending Unavailable PAULSON ., DR ABRAHAM Consulting Unavailable PAULSON ., DR ABRAHAM Admapple Unavailable TARAH GALLAGHER Consulting Unavailable JANELL, DR CASTANON Primary Care Unavailable PAULSON ., DR ABRAHAM Attending Unavailable PAULSON ., DR ABRAHAM Consulting Unavailable PAULSON ., DR ABRAHAM Admitting Unavailable GRIFFIN II, TOM Consulting Unavailable YOUSUF FAGAN Consulting Unavailable Flory, Brandy Unavailable Jarad PAULSON Attending Unavailable SHEA, Jarad Hendrickson Admitting Unavailable SHEA, Jarad Hendrickson Attending Unavailable SHEA, Jarad Hendrickson Attending Unavailable SHEA, Jarad Hendrickson Attending Unavailable PAULSON, Jarad Hendrickson Attending Unavailable SHEA, Jarad Hendrickson Attending Unavailable Allergies Allergy Classification Reported Allergen(s) Allergy Type Date of Onset Reaction(s) Facility (1 source) corn extract Drug Allergy [facility] Repository (1 source) No Known Medication Allergies; Translations: [No Known Medication Allergies] Propensity to adverse reactions (disorder) [facility] Repository Encounters Encounter Date Encounter Type Care Provider Facility Start: 03-16-2024 ambulatory Jarad Do ty:EU Melanie Start: 03-09-2024 ambulatory Jarad Hirschi ty:EU César Start: 03-01-2024 ambulatory Jarad Hirschi ty:[id number] Start: 02-03-2024 End: 02-04-2024 ambulatory Jarad PAULSON Facility:[facility] Start: 02-03-2024 End: 02-03-2024 Lab Drop off Jarad PAULSON [facility] Start: 02-03-2024 End: 02-03-2024 Patient encounter procedure Jarad PAULSON [facility] Start: 11-02-2023 ambulatory Jarad Hirschi ty:EU César Start: 05-15-2023 End: 05-15-2023 ambulatory Brandy Ruth Other [employer] Other Start: 05-15-2023 Office outpatient ne w 10 minutes Brandy Ruth [facility] Start: 02-11-2023 End: 02-11-[address] PARTH GARCÍA Facility: Start: 02-10-2023 End: 02-10-[address] PARTH GARCÍA Facility:[facility] Start: 02-03-2023 Encounter for other preprocedural examination DR JARAD PAULSON . [facility] Start: 02-03-2023 Encounter for preprocedural cardiovascular examination DR JARAD PAULSON . [facility] Start: 02-03-2023 Encounter for preprocedural laboratory examination DR JARAD PAULSON . [facility] Start: 01-28-2023 End: 01-29-[address] PARTH GARCÍA Facility:[facility] Start: 01-28-2023 End: 01-29-2023 Encounter for preprocedural laboratory examination DR PARTH GARCÍA Facility:[facility] Start: 01-07-2023 End: 01-07-2023 Patient encounter procedure Jarad PAULSON [facility] Start: 12-24-2022 End: 12-25-[address] PARTH GARCÍA Facility:[facility]1 Start: 12-22-2022 End: 12-22-2022 Patient encounter procedure Jarad PAULSON [facility] Start: 12-03-2022 End: 12-03-2022 ambulatory Jarad Paulson Facility:[facility] Start: 12-03-2022 End: 12-03-2022 ambulatory II Parth García Work Phone: [facility] Work Phone: Start: 12-03-2022 End: 12-03-2022 Patient encounter procedure KERRI García Work Phone: [facility] [place] Work Phone: Start: 11-15-2022 End: 11-16-[address] PARTH GARCÍA Facility:[facility] Start: 10-22-2022 End: 10-22-2022 Patient encounter procedure Jarad PAULSON [facility] Start: 10-15-2022 End: 10-16-[address] PARTH GARCÍA Facility:[facility] Start: 05-16-2019 End: 05-16-2019 Patient encounter procedure BG HUMPHREY [facility] Start: 05-16-2019 End: 05-16-2019 Subsequent hospital visit by physician Bg Humphrey Work Phone: [facility] Comment on above: Calculus of gallblad octavio with cholecystitis without biliary obstruction, unspecified cholecystitis acuity (Primary Dx) Start: 05-01-2019 Emergency department patient visit [facility] Start: 04-28-2019 End: 04-28-2019 Emergency department patient visit [facility] Medications Current Medications Medication Drug Class(es) Dates [...] Daily, # 30 tab(s), Refills(s) 11, Pharmacy: [facility] #[id number], 180, cm, 02/03/24 8:10:00 EDT, Height/Length Dosing, [...] week(s), 28 tab(s), Refill(s) 0, [facility] #[id number], 180, cm, 02/03/24 8:10:00 EDT, Height/Length Dosing, [...] procedure, # 2 tab(s), Refills(s) 0, Pharmacy: [facility] #[id number], 180, cm, 01/07/23 8:59:00 EDT, Height/Length Dosing, 59, kg, 01/07/23 8:59:00 EDT, Weight Dosing Start Date: 01/12/24 Status: Ordered Start: 10-07-2022 take 1 tablet by greer once daily Cipro 500 mg Tab 500 mg = 1 tab(s), Oral, Daily, Take 1 tablet the day before the procedure and 1 tablet after the procedure, # 2 tab(s), Refills(s) 0, Pharmacy: [facility] #[id number] Start Date: 10/07/22 Status: Ordered Start: 05-16-2019 [...] Corticosteroid Start: 05-15-2023 Kenalog-40 Apr, 40 mg Payers Date Payer Category Payer Self-pay [id number] [phone] [id number] 2019 Private Health Insurance RON KAHN xxxxxxxxxx 2019-Present [phone] [facility] [id number] [place] [address] xxxxxxxxxx [id number] 1965 Unknown [id number] [id number] .173 1965 Unknown [id number] 2.16.840.1.124693.3.579.2 .173 1965 Unknown [id number] 2.16.840.1.383247.3.579.2 .173 1965 Unknown [id number] 2.16.840.1.397372.3.579.2 .593 1965 Unknown [id number] 2.16.840.1.032223.3.579.2 .593 1965 Unknown [id number] 2.16.840.1.094763.3.579.2 .593 1965 Unknown [id number] 2.16.840.1.918757.3.579.2 .593 1965 Unknown [id number] 2.16.840.1.614477.3.579.2 .593 1965 Unknown [id number] 2.16.840.1.818383.3.579.2 .593 1965 Unknown [id number] 2.16.840.1.691913.3.579.2 .727 1965 Unknown [id number] 2.16.840.1.800222.3.579.2 .727 1965 Unknown [id number] 2.16.840.1.364605.3.579.2 .727 1965 Unknown [id number] 2.16.840.1.559548.3.579.2 .727 1965 Unknown [id number] 2.16.840.1.290627.3.579.2 .727 1959 Private Health Insurance [id number] Unknown [id number] [id number] .531 Plan of Treatment Date Care Activity Detail Author Start: 05-27-2019 Influenza vaccination Flu vaccine (# 1) [place] Start: 2015 Colon cancer screen colonoscopy Colon cancer screen colonoscopy [place] Start: 2015 Shingles Vaccine (1 of 2) Griffin gles Vaccine (1 of 2) [place] Start: 2005 Lipid screen Lipid screen [place], [place] Start: 1984 DTaP/Tdap/Td vaccine (1 - Tdap) DTaP/Tdap/Td vaccine (1 - Tdap) [place] Start: 1980 HIV screen HIV screen [place], [place] Start: 1965 Hepatitis C screen Hepatitis C scree n [place] End: 05-16-2019 Blood glucose - POCT Blood glucose - POCT Point of Care Testing Routine One Time for 1 Occurrences starting 05/16/2019 until 05/16/2019 [place] Comment on above: One Time for 1 Occur rences starting 05/16/2019 until 05/16/2019 Initiate Oxygen Ther apy Protocol Initiate Oxygen Therapy Protocol Respiratory Care Routine Daily until discontinued starting 05/16/2019 [place] Comment on above: Daily until disconti nued starting 05/16/2019 Phase I & II - meter ed glucose Phase I & II - metered glucose Point of Care Testing Routine As Needed until discontinued starting 05/16/2019 [place] Comment on above: As Needed until disc ontinued starting 05/16/2019 End: 05-16-2019 , urine , urine Lab Routine One Time for 1 Occurrences starting 05/16/2019 until 05/16/2019 [place] Comment on above: One Time for 1 Occur rences starting 05/16/2019 until 05/16/2019 End: 05-16-2019 Protime-INR Protime-INR Lab Routine One Time for 1 Occurrences starting 05/16/2019 until 05/16/2019 [facility] KASANDRA Comment on above: One Time for 1 Occur rences starting 05/16/2019 until 05/16/2019 Surgical Pathology Surgical Path ology Lab Routine ONE TIME for 1 Occurrences starting 05/16/2019 [facility] [place] Comment on above: ONE TIME for 1 Occur rences starting 05/16/2019 Problems Active Problems Problem Classification Problem Date [...] 02-03-2024 Chronic Other aftercare (1 source) 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; Translations: [OTH GROUP HOME CURRENT DRUG THERAPY] Onset: 02-15-2023 Episodic Other [...] [PAIN IN LEFT SHOULDER] Onset: 11-15-2022 Episodic Procedures Date Procedure Procedure Detail Performing Clinician Start: 02-03-2024 Flexible cystoscopy Alba belinda SHEA Start: 12-22-2022 Transrectal needle b iopsy of prostate Jarad SHEA Start: 12-03-2022 MR prostate wo/w con II Parth García Work Phone: Start: 10-22-2022 Cystoscopy Jarad ENEDELIA BARKER Start: 10-15-[address] PARTH GARCÍA Comment on above: Performed By: #### P SAD #### [facility] [address] [place] [address] Dr. Yordan Holt Start: 10-23-2021 Cystoscopy Jaradbelinda ZAMARRIPAS Start: 09-10-2020 Cystoscopy Jarad ENEDELIA TERS Start: 09-25-2019 Cystoscopy Jarad ZAMARRIPAS Start: 05-16-2019 ENCOURAGE DEEP BREAT [place] AND COUGHING PARTH GARCÍA Start: 05-16-2019 PLACE INTERMITTENT PNEUMATIC COMPRESSION DEVICE PARTH GARCÍA Start: 05-16-2019 AMBULATE PATIENT PARTH GARCÍA Start: 05-16-2019 DIET GENERAL PARTH TAVERA RY Start: 05-16-2019 FULL CODE PARTH TAVERA RY Start: 05-16-2019 INITIATE OXYGEN THER APY PROTOCOL PARTH GARCÍA Start: 05-16-2019 NOTIFY PHYSICIAN (SPECIFY) PARTH GARCÍA Start: 05-16-2019 TOBACCO CESSATION EDUCATION PARTH GARCÍA Start: 05-16-2019 VITAL SIGNS PARTH TAVERA RY Start: 05-16-2019 WOUND CARE PARTH TAVERA RY Start: 05-16-2019 Level iv surg pathol ogy gross&microscopic exam PARTH GARCÍA Start: 05-16-2019 INITIATE OXYGEN THER APY PROTOCOL PARTH GARCÍA Start: 05-16-2019 BEDREST PARTH TAVERA RY Start: 05-16-2019 NOTIFY PHYSICIAN (SPECIFY) PARTH GARCÍA Start: 05-16-2019 NURSING COMMUNICATION Brian HEATONJEAN CARLOS JANELL Start: 05-16-2019 VITAL SIGNS PARTH TAVERA RY Start: 05-16-2019 Gluc bld gluc mntr d ev cleared fda spec home use PARTH GARCÍA Start: 05-16-2019 MEASURE HEIGHT AND LENGTH PARTH GARCÍA Start: 05-16-2019 MEASURE WEIGHT PARTH DODSON Start: 05-16-2019 NURSING COMMUNICATION D JEAN CARLOS [...] PARTH GARCÍA Start: 05-16-2019 VITAL SIGNS PARTH TAVERA RY Start: 05-01-2019 Us abdominal real ti me w/image limited PARTH GARCÍA Start: 05-01-2019 Assay of lactate PARTH GARCÍA Start: 05-01-2019 Assay of lipase PARTH GARCÍA Start: 05-01-2019 Assay of troponin quantitative PARTH GARCÍA Start: 05-01-2019 Basic metabolic pane l calcium total PARTH GARCÍA Start: 05-01-2019 Blood count complete auto&auto difrntl wbc PARTH GARCÍA Start: 05-01-2019 Hepatic function panel PARTH [...] GABBY GARCÍA Start: 04-28-2019 VITAL SIGNS PARTH TAVERA EMILY Start: 09-05-2018 Cystoscopy Jarad BARKER Comment on [...] ight ureter, TURBT and right stent placement Results Test Name Value Interpretation Reference Range Facil ity Lab Reportson 02-22-2024 Lab Reports [id number]# 1.00TIFF Normal [facility] RAD - MISCon 02-22-2024 RAD - MISC [id number]# 1.00TIFF Normal [facility] UroVysion Fish and Urine Cyt o ([facility])on 02-10-2024 UVFISH & UC Diagnosis Info Invalid Interpretation Code [facility] Comment on above: Result Comment: A:Ur ine,Urine:Voided [...] on: 02/10/2024 12:29:57 Performed By: #### 1 [id number] #### [facility] [address] [place] [address] Consent for Procedure/Surger yon 02-08-2024 Consent for Procedure/Surgery [id number]#1.00TIFF Normal [facility] Ambulatory Visit Summaryon 0 02-03-2024 Ambulatory Visit [...] AM EDT With: Where: [facility] [address] [place] [address]- \.br\ You Need to Schedule the Following Appointments\.br \ Follow Up with SHEA JARA, Jarad Hendrickson, URL When: \.br\ Where:\.br\ [facility]\.br\ [place] [address]-\.br\ Medications\.br\ What How Much When Instructions\.br \ New alfuzosin (alfuzosin 10 mg ER Tab) 1 Tablets By Mouth Every day Refills: 11 Pickup at [facility] #[id number]\.br\ New sulfamethoxazole -trimethoprim (Bactrim D.S. 800 mg-160 mg Tab) 1 Tablets By Mouth 2 times a day Duration: 2 Weeks Pickup at [facility] #[id number]\.br\ Unchanged ciprofloxacin (Cipro 500 mg Tab) 1 Tablets By Mouth Every day Take 1 tablet the day before the procedure and 1 tablet after the procedure Contact prescribing physician if questions or concerns \.br\ Pharmacy Information\.br\ [facility] #[id number]: [address] [place], [place] [id number] [phone]\.br\ Medications and Immunizations Administered\.br \ Given\.br\ lidocaine [...] including vitamins, herbs, eye drops, creams, and lehe-nwk-wlpjukx medicines.\.br\ ? \.br\ Any problems you or [...] you to take them.\.br\ ? \.br\ Taking dvmc-nve-ypbjylm medicines, vitamins, herbs, and supplements.\.br \ General [...] out by passing fluid through your catheter.\.br\ [facility] Consent for Procedure/Surger yon 02-03-2024 Consent for Procedure/Surgery [id number]# 1.00TIFF Normal [facility] Insurance Correspondenceon 0 02-03-2024 Insurance Correspondence [id number] 9#1.00TIFF Normal [facility] Patient Educationon 02-03-20 24 Patient Education Oncology Transurethral Resection of Bladder [...] including vitamins, herbs, eye drops, creams, and prsr-gbh-pbidwjl medicines. ? Any problems you or family [...] tells you to take them. ? Taking uran-sta-shavycy medicines, vitamins, herbs, and supplements. General instructions [...] as y (more content not included)... Normal [facility] UroVysion Fish and Urine Cyt o ([facility])on 02-03-2024 [facility] Method of Extraction Voided Normal [facility] Comment on above: Performed By: #### 1 [id number] #### [facility] [address] [place] [address] [facility] Number of Jars 1 Invalid Interpretation Code [facility] Comment on above: Performed By: #### 1 [id number] #### [facility] [address] [place] [address] [facility] Specimen Urine Normal [facility] Comment on above: Performed By: #### 1 [id number] #### [facility] [address] [place] [address] [facility] Type of Service Technical Only Normal [facility] Comment on above: Performed By: #### 1 [id number] #### [facility] [address] [place] [address] Urology Office/Clinic Noteon 02-03-2024 Urology Office/Clinic Note [...] weak s (more content not included)... Normal [facility] Comment on above: Result Comment: Elec tronically Signed By: Jarad PAULSON MD\.br\Date and Time Signed: 02/03/24 08:45 EDT\.br\Electronically Co-Signed By: Leonie Garcia.br\Date and Time Co-Signed: 02/03/24 08:41 EDT Lab Reportson 01-30-2024 Lab Reports [id number] #1.00TIFF [facility] Reminderson 01-12-2024 Reminders - From: Anna Sigala To: EU - Recalls Shea; Cc: Anna Sigala; Sent: 03/07/2023 09:57:33 EDT Show up: 12/26/2023 09:57:00 EDT Subject: Cysto/FISH/cytol Due Date/Time: 01/16/2024 09:57:00 EDT Reminder/Recall Patient is due in January 2024 for 1 year cysto/fish/cytol/PSA /CHANI (bt ck) l/m on cell vm.LG Patient called back, sched for 02/07/24 in césar office.[facility] Reminders - From: Anna Sigala To: EU - Recalls Paulson; Sent: 01/12/2024 10:49:46 EDT Show up: 10/27/2024 10:49:00 EST Subject: Cysto/fish/cytol/psa /chani Due Date/Time: 11/19/2024 10:49:00 EST Reminder/Recall Patient is due in January 2025 for 1 year cysto/fish/cytol/PSA /chani (bt ck) Normal [facility] CBC W MANUAL DIFFon 02-12-20 23 ATYPICAL LYMPH # Normal [facility] Comment on above: Performed By: #### C BCMAN ####[facility] [address] [place] [address]Dr. Yilan Holt ATYPICAL LYMPH % Normal [facility] Comment on above: Performed By: #### C MONSTER ####[facility] [address] [place], [place] [address]Dr. Yilan Holt BAND # Normal 0.0-0.3 [facility] Comment on above: Performed By: #### C MONSTER ####[facility] [address] [place], [place] [address]Dr. Yilan Holt BAND % Normal 0-5 [facility] Comment on above: Performed By: #### C BCMAN ####[facility] [address] [place], [place] [address]Dr. Yilan Holt BASOM # 0.00 103/ul Normal 0.00-0.10 [facility] Comment on above: Performed By: #### C BCMAN ####[facility] [address] [place], [place] [address]Dr. Yilan Holt BASOM % 0.0 % Critically low 0.2-2.0 [facility] [place] [facility] Comment on above: Performed By: #### C BCMAN ####[facility] [address] [place], [place] [address]Dr. Yilan Holt BLAST # Normal [facility] Comment on above: Performed By: #### C BCSARINA ####[facility] [address] [place], [place] [address]Dr. Yilan Holt BLAST % Normal [facility] Comment on above: Performed By: #### C MONSTER ####[facility] [address] [place], [place] [address]Wj. Yordan Holt CORRECTED WBC Normal 4.0-11.0 The [facility] Comment on above: Performed By: #### C MONSTER ####[facility] [address] [place], [place] [address]Vb. Yordan Holt EOS # 0.00 103/ul Normal 0.00-0.70 [facility] Comment on above: Performed By: #### C MONSTER ####[facility] [address] [place], [place] [address]Nj. Yordan Holt EOS% 0.0 % Critically low 0.9-7.0 [facility] [place] [facility] Comment on above: Performed By: #### C MONSTER ####[facility] [address] [place] [id number]. Yordan Holt HCT 46.7 % Normal 42.0-54.0 [facility] Comment on above: Performed By: #### C MONSTER ####[facility] [address] [place] [address]Dr. Yordan Holt HGB 16.3 g/dl Normal 14.0-18.0 [facility] Comment on above: Performed By: #### C MONSTER ####[facility] [address] [place], [place] [address]Hh. Yordan Holt LYMPHM # 0.53 103/ul Critically low 1.20-3.80 The [facility] Comment on above: Performed By: #### C MONSTER ####[facility] [address] [place], [place] [address]Yv. Yordan Holt LYMPHM% 4.0 % Critically low 20.5-60.0 [facility] [place] [facility] Comment on above: Performed By: #### C MONSTER ####[facility] [address] [place] [address]Dr. Yordan Holt MCH 30.9 pg Normal 25.9-34.0 [facility] Comment on above: Performed By: #### C MONSTER ####[facility] [address] [place] [address]Dr. Yordan Holt MCHC 34.9 g/dl Normal 29.9-35.2 [facility] Comment on above: Performed By: #### C MONSTER ####[facility] [address] [place] [address]Dr. Yordan Holt MCV 88.6 fL Normal 80.0-94.0 [facility] Comment on above: Performed By: #### C MONSTER ####[facility] [address] [place] [address]Dr. Yordan Holt METAMYELOCYTE # Normal [facility] Comment on above: Performed By: #### C MONSTER ####[facility] [address] [place] [address]Dr. Yordan Holt METAMYELOCYTE % Normal [facility] Comment on above: Performed By: #### Anat HOOK ####[facility] [address] [place], [place] [address]Dr. Yordan Holt MONOM# 0.53 103/ul Normal 0.30-0.80 [facility] Comment on above: Performed By: #### Anat HOOK ####[facility] [address] [place], [place] [address]Dr. Yordan Holt MONOM% 4.0 % Normal 1.7-12.0 [facility] Comment on above: Performed By: #### Anat HOOK ####[facility] [address] [place], [place] [address]Dr. Yordan Holt MPV 9.2 fL Critically low 9.5-13.5 [facility] [place] [facility] Comment on above: Performed By: #### Anat HOOK ####[facility] [address] [place], [place] [address]Dr. Yordan Holt MYELOCYTE # Normal [facility] Comment on above: Performed By: #### C MONSTER ####[facility] [address] [place] [address]Dr. Yordan Holt MYELOCYTE % Normal [facility] Comment on above: Performed By: #### C MONSTER ####[facility] [address] [place], [place] [address]Tl. Yordan Holt NRBC Normal [facility] Comment on above: Performed By: #### C MONSTER ####[facility] [address] [place], [place] [address]Cw. Yordan Holt PLT 205 103/ul Normal 150-450 [facility] Comment on above: Performed By: #### C MONSTER ####[facility] [address] [place] [address]Dr. Yordan Holt RBC 5.27 106/ul Normal 4.70-6.10 [facility] Comment on above: Performed By: #### C MONSTER ####[facility] [address] [place] [address]Dr. Yordan Holt RDW 11.7 % Normal 11.0-15.0 [facility] Comment on above: Performed By: #### Anat HOOK ####[facility] [address] [place] [address]Dr. Erikaperry Holt SEG # 12.24 103/ul Critically high 1.40-6.50 [facility] Comment on above: Performed By: #### Anat HOOK ####[facility] [address] [place] [address]Dr. Yordan Holt SEG % 92.0 % Critically high 43.0-75.0 [facility] Comment on above: Performed By: #### Anat HOOK ####[facility] [address] [place] [address]Dr. Yordan Jonathon WBC 13.3 103/ul Critically high 4.0-11.0 [facility] Comment on above: Performed By: #### Anat HOOK ####[facility] [address] [place] [address]DrJorge Alberto Holt CULTURE URINEon 02-11-2023 CULTURE URINE Culture Observations: NO GROWTH. Normal [facility] Comment on above: Performed By: #### U RCX #### [facility] [address] [place], [place] [address] Dr. Yordan Holt ER URINE PROFILEon 3 Bilirubin Ql (U) Negative Normal NEGATIVE The [facility] Comment on above: Performed By: #### U MICRO, ERUR ####[facility] [address] [place] [address]Dr. Yordan Holt Clarity (U) CLOUDY Abnormal CLEAR [facility] Comment on above: Performed By: #### U MICRO, ERUR ####[facility] [address] [place] [address]Dr. Yordan Holt Color (U) YELLOW Normal YELLOW [facility] Comment on above: Performed By: #### U MICRO, ERUR ####[facility] P[address] [place], [place] [address]Dr. Yordan GOLDSTEIN A micrscopic examination will be performed if indicated. Normal [facility] Comment on above: Performed By: #### U MICRO, ERUR ####[facility] [address] [place], [place] [address]Dr. Yordan Holt Glucose Ql (U) Negative Normal NEGATIVE The [facility] Comment on above: Performed By: #### U MICRO, ERUR ####[facility] Bach[address] [place], [place] [address]Dr. Yordan Holt Hemoglobin Ql (U) LARGE Abnormal NEGATIVE The [facility] Comment on above: Performed By: #### U MICRO, ERUR ####[facility] [address] [place], [place] [address]Dr. Yordan Holt Ketones Ql (U) 15 mg/dl Abnormal NEGATIVE The [facility] Comment on above: Performed By: #### U MICRO, ERUR ####[facility] [address] [place], [place] [address]Dr. Yordan Holt LEUKOCYTES MODERATE Abnormal NEGATIVE The [facility] Comment on above: Performed By: #### U MICRO, ERUR ####[facility] D[address] [place], [place] [address]Dr. Yordan Holt Nitrite Ql (U) Negative Normal NEGATIVE The [facility] Comment on above: Performed By: #### U MICRO, ERUR ####[facility] [address] [place] [address]Dr. Yordan Holt pH (U) 6.0 [pH] Normal 5-9 [facility] Comment on above: Performed By: #### U MICRO, ERUR ####[facility] [address] [place] [address]Dr. Yordan Holt Protein (U) [Mass/Vol] 100 mg/dL Abnormal NEGATIVE/ TRACE The [facility] Comment on above: Performed By: #### U MICRO, ERUR ####[facility] [address] [place] [address]Dr. Yordan Holt SPEC GRAVITY 1.020 Normal 1.005-<=1.025 The [facility] Comment on above: Performed By: #### U MICRO, ERUR ####[facility] [address] [place] [address]Dr. Yordan Holt UR MICRO IND INDICATED Normal [facility] Comment on above: Performed By: #### U MICRO, ERUR ####[facility] [address] [place] [address]Dr. Yordan Holt Urobilinogen Qn (U) 1.0 {Ritu'U}/dL Normal 0.2 - 1. 0 [facility] Comment on above: Performed By: #### U MICRO, ERUR ####[facility] [address] [place], [place] [address]Dr. Yordan Holt LIPASEon 02-11-2023 Lipase [Catalytic activity/Vol] 146.0 U/L Normal 73.0-393.0 [facility] Comment on above: Performed By: #### L IPA, CMP #### [facility] [address] [address] [address] Yordan Holt PROF 14(COMP METB)on 023 Albumin [Mass/Vol] 3.9 g/dL Normal 3.4-5.0 The [facility] Comment on above: Performed By: #### L IPA, CMP #### [facility] [address] [address] [address] Yordan Holt Albumin/Globulin [Mass ratio] 1.0 {ratio} Normal [facility] Comment on above: Performed By: #### L IPA, CMP #### [facility] [address] [address] [address] Yordan Holt ALP [Catalytic activity/Vol] 79 U/L Normal 46-116 [facility] Comment on above: Performed By: #### L IPA, CMP #### [facility] [address] [address] [address] Yordan Holt ALT [Catalytic activity/Vol] 22 U/L Normal 16-63 [facility] Comment on above: Performed By: #### L IPA, CMP #### [facility] [address] [address] [address] oYrdan Holt Anion gap [Moles/Vol] 13.6 mmol/L Normal [facility] Comment on above: Performed By: #### L IPA, CMP #### [facility] [address] [address] [address] Yordan Holt AST [Catalytic activity/Vol] 17 U/L Normal 15-37 [facility] Comment on above: Performed By: #### L IPA, CMP #### [facility] [address] [address] [address] Yordan Holt Bilirubin [Mass/Vol] 0.7 mg/dL Normal 0.2-1.0 [facility] Comment on above: Performed By: #### L IPA, CMP #### [facility] [address] [address] [address] Yordan Holt Calcium [Mass/Vol] 8.7 mg/dL Normal 8.5-10.1 [facility] Comment on above: Performed By: #### L IPA, CMP #### [facility] [address] [address] [address] Yordan Holt Chloride [Moles/Vol] 99 mmol/L Normal 98-107 [facility] Comment on above: Performed By: #### L IPA, CMP #### [facility] [address] [address] [address] Yordan Holt CO2 [Moles/Vol] 27.3 mmol/L Normal 21.0-32.0 [facility] Comment on above: Performed By: #### L IPA, CMP #### [facility] [address] [address] [address] Yordan Holt Creatinine [Mass/Vol] 1.44 mg/dL Critically high 0.70-1.30 [facility] Comment on above: Performed By: #### L IPA, CMP #### [facility] [address] [address] [address] Yordan Holt EGFR-AF YEMENI >60 Normal >=60 [facility] Comment on above: Performed By: #### L IPA, CMP #### [facility] [address] [address] [address] Yordan Holt EGFR-NON AF YEMENI 51 mL/min/1.73m2 Critically low >=60 [facility] Comment on above: Performed By: #### L IPA, CMP #### [facility] [address] [address] [address] Yordan Holt Globulin (S) [Mass/Vol] 3.9 g/dL Normal [facility] Comment on above: Performed By: #### L IPA, CMP #### [facility] [address] [address] [address] Yordan Holt Glucose [Mass/Vol] 161 mg/dL Critically high 74-[address] [facility] Comment on above: Performed By: #### L IPA, CMP #### [facility] [address] [address] [address] Yordan Holt Potassium [Moles/Vol] 3.6 mmol/L Normal 3.5-5.1 [facility] Comment on above: Performed By: #### L IPA, CMP #### [facility] [address] [address] [address] Yordan Holt Protein [Mass/Vol] 7.8 g/dL Normal 6.4-8.2 [facility] Comment on above: Performed By: #### L IPA, CMP #### [facility] [address] [address] [address] Yordan Holt Sodium [Moles/Vol] 137 mmol/L Normal 136-145 [facility] Comment on above: Performed By: #### L IPA, CMP #### [facility] [address] [address] [address] Yordan Holt Urea nitrogen [Mass/Vol] 16.0 mg/dL Normal 7.0-18.0 [facility] Comment on above: Performed By: #### L IPA, CMP #### [facility] [address] [address] [address] Yordan Holt Urea nitrogen/Creatinine [Mass ratio] 11.1 mg/mg Normal [facility] Comment on above: Performed By: #### L IPA, CMP #### [facility] [address] [address] [address] Yordan Holt TROPONIN, HIGH SENSITIVITYon 02-11-2023 HSTROP 7.4 pg/mL Normal 4.0-76.1 [facility] Comment on above: Result Comment: CUT- OFF POINTS HAVE BEEN ESTABLISHED BASED ON THE FOURTH UNIVERSAL DEFINITIONS OF MYOCARDIAL INFARCTION. THE UPPER REFERENCE LIMIT (URL) OF TROPONIN, DEFINED THE 99TH PERCENTILE OF cTnI DISTRIBUTION IN A REFERENCE POPULATION, HAS BEEN CONFIRMED THE DECISION THRESHOLD FOR [place] DIAGNOSIS. Performed By: #### H STROPN #### [facility] [address] [address] [address] Yordan Holt URINE MICROSCOPIC ONLYon AMORPHOUS CRYSTALS RARE Normal The [facility] Comment on above: Performed By: #### U MICRO, ERUR ####[facility] [address] [address]Dr. Yordan Holt BACTERIA TRACE Abnormal NONE SEEN [facility] Comment on above: Performed By: #### U MICRO, ERUR ####[facility] [address] [place] [address]Dr. Yordan Holt Bacteria identified Cx Nom (U) INDICATED Normal [facility] Comment on above: Performed By: #### U MICRO, ERUR ####[facility] [address] [place] [address]DrJorge Alberto Holt CAST NONE SEEN Normal NONE SEEN [facility] Comment on above: Performed By: #### U MICRO, ERUR ####[facility] [address] [place] [address]Dr. Yordan Holt Crystals LM Nom (Urine sed) SEEN Abnormal NONE SEEN The [facility] Comment on above: Performed By: #### U MICRO, ERUR ####[facility] [address] [place] [address]Dr. Yordan Holt Epithelial cells LM Ql (Urine sed) RARE Normal NONE SEEN /RARE [facility] Comment on above: Performed By: #### U MICRO, ERUR ####[facility] [address] [place] [address]Dr. Erikaperry Holt MUCOUS SMALL Abnormal NONE SEEN The [facility] Comment on above: Performed By: #### U MICRO, ERUR ####[facility] [address] [place] [address]Dr. Yordan Holt RBC (U) [#/Vol] /uL Abnormal 0-2 The [facility] Comment on above: Performed By: #### U MICRO, ERUR ####[facility] [address] [place] [address]Dr. Yordan Holt WBC 50-75 Abnormal NONE SEEN The [facility] Comment on above: Performed By: #### U MICRO, ERUR ####[facility] [address] [place] [address]Dr. Yordan Holt XR ABD FLAT UP_PA Kailey [...] GRISEL THOMAS Date: 2023-02-11 10:02 Normal [facility] CYTOLOGYon 02-10-2023 SENT TO REF LAB 02/10/2023 Normal The [facility] Comment on above: Performed By: #### C YTO #### [facility] [address] [place], [place] [address] Dr. Yordan Holt CBC AUTO DIFFon 01-28-2023 BASO # 0.0 103/ul Normal 0.0-0.1 [facility] Comment on above: Performed By: #### C BC ####[facility] [address] [place] [id number] Alberto Holt Basophils/100 WBC (Bld) 0.7 % Normal 0.2-2.0 [facility] Comment on above: Performed By: #### C BC ####[facility] [address] [place] [address]Dr. Yordan Holt EO # 0.0 103/ul Normal 0.0-0.7 [facility] Comment on above: Performed By: #### C BC ####[facility] [address] [place] [address]DrJorge Alberto Holt Eosinophils/100 WBC (Bld) 0.0 % Critically low 0.9-7.0 [facility] Comment on above: Performed By: #### C BC ####[facility] [address] [place], [place] [address]DrJorge Alberto Holt Erythrocyte distribution width (RBC) [Ratio] 12.3 % Normal 11.0-15.0 [facility] Comment on above: Performed By: #### C BC ####[facility] [address] [place] [address]DrJorge Alberto Holt Hematocrit (Bld) [Volume fraction] 43.2 % Normal 42.0-54.0 [facility] Comment on above: Performed By: #### C BC ####[facility] [address] [place] [id number] Alberto Holt Hemoglobin (Bld) [Mass/Vol] 14.8 g/dL Normal 14.0-18.0 [facility] Comment on above: Performed By: #### C BC ####[facility] [address] [place], [place] [address]DrJorge Alberto Holt IG # 0.01 10e3/ul Normal 0.00-0.03 [facility] Comment on above: Performed By: #### C BC ####[facility] [address] [place] [address]DrJorge Alberto Holt IG % 0.2 % Normal 0.0-0.5 [facility] Comment on above: Performed By: #### C BC ####[facility] [address] [place] [address]DrJorge Alberto Holt LYMPH # 1.0 103/ul Critically low 1.2-3.8 [facility] Comment on above: Performed By: #### C BC ####[facility] [address]ob[address] [place] [address]DrJorge Alberto Holt Lymphocytes/100 WBC (Bld) 23.4 % Normal 20.5-60.0 [facility] Comment on above: Performed By: #### C BC ####[facility] [address]ch[address] [place] [address]DrJorge Alberto Holt MANUAL DIFF REQ NO Normal [facility] Comment on above: Performed By: #### C BC ####[facility] [address]rl[address] [place] [address]DrJorge Alberto Yordan Jonathon MCH (RBC) [Entitic mass] 31.1 pg Normal 25.9-34.0 [facility] Comment on above: Performed By: #### C BC ####[facility] [address] [place] [address]DrJorge Alberto Erikaperry Holt MCHC (RBC) [Mass/Vol] 34.3 g/dL Normal 29.9-35.2 [facility] Comment on above: Performed By: #### C BC ####[facility] [address]ls[address] [place] [address]DrJorge Alberto Holt MCV (RBC) [Entitic vol] 90.8 fL Normal 80.0-94.0 [facility] Comment on above: Performed By: #### C BC ####[facility] [address] [place] [address]DrJorge Alberto Holt MONO # 0.4 103/ul Normal 0.3-0.8 [facility] Comment on above: Performed By: #### C BC ####[facility] [address]rej[address] [place] [address]Dr. Yordan Holt Monocytes/100 WBC (Bld) 10.2 % Normal 1.7-12.0 [facility] Comment on above: Performed By: #### C BC ####[facility] [address] [place] [address]Dr. Yordan Holt NEUT # 2.8 103/ul Normal 1.4-6.5 [facility] Comment on above: Performed By: #### C BC ####[facility] [address] [place] [address]Dr. Yordan Holt Neutrophils/100 WBC (Bld) 65.5 % Normal 43.0-75.0 [facility] Comment on above: Performed By: #### C BC ####[facility] [address] [place] [address]Dr. Yordan Holt Platelet mean volume (Bld) [Entitic vol] 9.2 fL Critically low 9.5-13.5 [facility] Comment on above: Performed By: #### C BC ####[facility] [address] [place] [address]Dr. Yordan Holt PLT 172 103/ul Normal 150-450 [facility] Comment on above: Performed By: #### C BC ####[facility] [address] [place] [address]Dr. Yordan Holt RBC 4.76 106/ul Normal 4.70-6.10 [facility] Comment on above: Performed By: #### C BC ####[facility] Q[address]qs[address] [place] [address]Dr. Yordan Holt WBC 4.2 103/ul Normal 4.0-11.0 [facility] Comment on above: Performed By: #### C BC ####[facility] [address]dr[address] [place] [id number] Alberto Yordan Jonathon PROF CHEM 8 (BAS METB)on Anion gap [Moles/Vol] 11.6 mmol/L Normal [facility] Comment on above: Performed By: #### B MP #### [facility] [address] [address] [address] Yordan Holt Calcium [Mass/Vol] 8.5 mg/dL Normal 8.5-10.1 [facility] Comment on above: Performed By: #### B MP #### [facility] [address] [address] [address] Yordan Holt Chloride [Moles/Vol] 104 mmol/L Normal 98-107 [facility] Comment on above: Performed By: #### B MP #### [facility] [address] [address] [address] Yordan Holt CO2 [Moles/Vol] 28.1 mmol/L Normal 21.0-32.0 [facility] Comment on above: Performed By: #### B MP #### [facility] [address] [place] [address] Dr. Yordan Holt Creatinine [Mass/Vol] 1.00 mg/dL Normal 0.70-1.30 [facility] Comment on above: Performed By: #### B MP #### [facility] [address] [address] [address] Yordan Holt EGFR-AF YEMENI >60 Normal >=60 [facility] Comment on above: Performed By: #### B MP #### [facility] [address] [address] [address] Yordan Holt EGFR-NON AF YEMENI >60 Normal >=60 [facility] Comment on above: Performed By: #### B MP #### [facility] [address] [address] [address] Yordan Holt Glucose [Mass/Vol] 117 mg/dL Critically high 74-[address] [facility] Comment on above: Performed By: #### B MP #### [facility] [address] [address] [address] Yordan Holt Potassium [Moles/Vol] 3.7 mmol/L Normal 3.5-5.1 [facility] Comment on above: Performed By: #### B MP #### [facility] [address] [place], [place] [address] Dr. Yordan Holt Sodium [Moles/Vol] 140 mmol/L Normal 136-145 [facility] Comment on above: Performed By: #### B MP #### [facility] [address] [place], [place] [address] Dr. Yordan Holt Urea nitrogen [Mass/Vol] 13.0 mg/dL Normal 7.0-18.0 [facility] Comment on above: Performed By: #### B MP #### [facility] [address] [place], [place] [address] Dr. Yordan Holt Urea nitrogen/Creatinine [Mass ratio] 13.0 mg/mg Normal [facility] Comment on above: Performed By: #### B MP #### [facility] [address] [place], [place] [address] ABD/PELV WO W [...] by: ELIAS PONCE Date: 2022-12-25 20:21 Normal [facility] MR prostate wo/w [facility] 12-03 MR prostate wo/w con [facility] [place] [address] [place], [place] [id number] MRI Report Signed Patient: Venita Rosenberg MR#: [id number] : 1965 Acct:[id number] Age/Sex: 57 / M ADM Date: 12/03/22 Loc: MR Room: Type: [facility] Attending Dr: Jarad Paulson MD Copies to: [...] recommended. Impression dictated by: Leonardo Mitchell Jr., D.OJorge Alberto12/03/2022 1:40 PM Dictation Location: [facility] Transcribed By: [facility] 12/03/22 1340 Dictated By: Leonardo Mitchell Jr, 12/03/22 1327 Signed By: 12/03/22 1340 [facility] OPERATIVE REPORTon 9 OPERATIVE REPORT [address] [id number] OPERATIVE REPORT PATIENT NAME: VENITA ROSENBERG : 1965 MED REC NO: [id number] ROOM: ACCOUNT NO: [id number] ADMIT DATE: 05/16/2019 PROVIDER: Bg Humphrey DATE [...] rectus fascia with 0 Vicryl in a kqoecz-gp-hzyhc fashion. Skin edges were reapproximated with skin [...] for staple removal. BG HUMPHREY [id number] Doc#: [id number] CC: Parth Humphrey [facility] Surgical Pathologyon 019 Surgical Pathology (NOTE) [id number] [facility] [employer] CONSULTING PATHOLOGISTS [facility] ANATOMIC PATHOLOGY [address] [place] [address]. [place] [id number] SURGICAL PATHOLOGY CONSULTATION Patient Name: VENITA ROSENBERG [facility] Rec: [id number] Path Number: [id number] Collected: 05/16/2019 Received: 05/17/2019 Reported: 05/18/2019 13:00 -- Diagnosis -- GALLBLADDER, CHOLECYSTECTOMY: - ACUTE AND CHRONIC CHOLECYSTITIS, FOCALLY GANGRENOUS, WITH FOCAL MUCOSAL ULCERATIONS AND MURAL FIBROSIS. Nathan Eduardo, Electronically Signed Out sls/05/18/2019 Clinical Information Pre-op Diagnosis: CHOLELITHIASIS Operative Findings: [...] is grossly unremarkable. No masses are identified. [employer] Senior Specialist sections 1cs. tm Microscopic Description Microscopic examination performed. [facility] Comment on above: Performed By: #### T ROPI, CDP, PTT, PT, BNP, BMP #### [facility] [address] [place] [address] [employer]: Rito Morris MD Basic Metabolic Profon 05-01 (cont.) [facility] Comment on above: Result Comment: Aver age GFR for 50-59 years old: 93 mL/min/1.73sq m Chronic Kidney Disease: <60 mL/min/1.73sq m Kidney failure: <15 mL/min/1.73sq m eGFR calculated using average adult body mass. Additional eGFR calculator available at: http://www.[employer].com/multiple_crcl_2012.htm Performed By: #### T ROPI, CDP, PTT, PT, BNP, BMP #### [facility] [address] [place], [place] [id number] [employer]: Rito Morris MD Anion gap [Moles/Vol] 15 mmol/L Normal 9-17 [facility] Comment on above: Performed By: #### T ROPI, CDP, PTT, PT, BNP, BMP #### [facility] [address] [place], [place] [id number] [employer]: Rito Morris MD BUN/CRE Ratio 13 Normal 9-20 [facility] Comment on above: Performed By: #### T ROPI, CDP, PTT, PT, BNP, BMP #### [facility] [address] [place] [address] [employer]: Rito Morris MD Calcium [Mass/Vol] 9.0 mg/dL Normal 8.6-10.4 [facility] Comment on above: Performed By: #### T ROPI, CDP, PTT, PT, BNP, BMP #### [facility] [address] [place], [place] [id number] [employer]: Rito Morris MD Chloride [Moles/Vol] 98 mmol/L Normal 98-107 [facility] Comment on above: Performed By: #### T ROPI, CDP, PTT, PT, BNP, BMP #### [facility] [address] [place], [place] [id number] [employer]: Rito Morris MD CO2 [Moles/Vol] 24 mmol/L Normal 20-31 [facility] Comment on above: Performed By: #### T ROPI, CDP, PTT, PT, BNP, BMP #### [facility] [address] [place] [address] [employer]: Rito Morris MD Creatinine [Mass/Vol] 0.91 mg/dL Normal 0.70-1.20 [facility] Comment on above: Performed By: #### T ROPI, CDP, PTT, PT, BNP, BMP #### [facility] [address] [place] [address] [employer]: Rito Morris MD GFR, Amer >60 Normal >60 [facility] Comment on above: Performed By: #### T ROPI, CDP, PTT, PT, BNP, BMP #### [facility] [address] [place] [address] [employer]: Rito Morris MD GFR,non Amer >60 Normal >60 [facility] Comment on above: Performed By: #### T ROPI, CDP, PTT, PT, BNP, BMP #### [facility] [address] [place] [address] [employer]: Rito Morris MD Glucose [Mass/Vol] 160 mg/dL High 70-99 [facility] Comment on above: Performed By: #### T ROPI, CDP, PTT, PT, BNP, BMP #### [facility] [address] [place] [address] [employer]: Rito Morris MD Potassium [Moles/Vol] 3.8 mmol/L Normal 3.7-5.3 [facility] Comment on above: Performed By: #### T ROPI, CDP, PTT, PT, BNP, BMP #### [facility] [address] [place], [place] [id number] [employer]: Rito Morris MD Sodium [Moles/Vol] 137 mmol/L Normal 135-144 [facility] Comment on above: Performed By: #### T ROPI, CDP, PTT, PT, BNP, BMP #### [facility] [address] [place] [address] [employer]: Rito Morris MD Staging: Normal [facility] Comment on above: Result Comment: Stag e 1: Some kidney damage normal GFR Stage 2: Mild kidney damage GFR 60-89 Stage 3: Moderate kidney damage GFR 30-59 Stage 4: Severe kidney damage GFR 15-29 Stage 5: Severe kidney damage GFR <15 ESRD - chronic treatment by dialysis or transplant Performed By: #### T ROPI, CDP, PTT, PT, BNP, BMP #### [facility] [address] [place], [facility] [employer]: Rito Morris MD Urea nitrogen [Mass/Vol] 12 mg/dL Normal 6-20 [facility] Comment on above: Performed By: #### T ROPI, CDP, PTT, PT, BNP, BMP #### [facility] [address] [place] [phone] [employer]: Rito Morris MD CBC with Diffon 05-01-2019 Abs. Basophil 0.09 k/uL Normal 0.0-0.2 [facility] Comment on above: Performed By: #### T ROPI, CDP, PTT, PT, BNP, BMP #### [address] [place], [facility] Manager Express: Rito Morris MD Abs.Imm.Granulocyte 0.09 k/uL Normal 0.00-0.30 [facility] Comment on above: Performed By: #### T ROPI, CDP, PTT, PT, BNP, BMP #### [address] [place], [place] [address] Manager Express: Rito Morris MD Abs.Neutrophil (Seg) 6.94 k/uL Normal 1.50-8.10 [facility] Comment on above: Performed By: #### T ROPI, CDP, PTT, PT, BNP, BMP #### [facility] [address] [place] [id number] Manager Express: Rito Morris MD Auto Diff Performed NOT REPORTED Normal [facility] Comment on above: Performed By: #### T ROPI, CDP, PTT, PT, BNP, BMP #### [facility] [address] [place], [facility] Manager Express: Rito Morris MD Basophils/100 WBC (Bld) 1 % Normal 0-2 [facility] Comment on above: Performed By: #### T ROPI, CDP, PTT, PT, BNP, BMP #### [facility] [address] [place], [facility] Manager Express: Rito Morris MD Eosinophils (Bld) [#/Vol] 0.27 10*3/uL Normal 0.00-0.44 [facility] Comment on above: Performed By: #### T ROPI, CDP, PTT, PT, BNP, BMP #### [facility] [address] [place] [id number] Manager Express: Rito Morris MD Eosinophils/100 WBC (Bld) 3 % Normal 1-4 [facility] Comment on above: Performed By: #### T ROPI, CDP, PTT, PT, BNP, BMP #### [address] [place], [facility] Manager Express: Rito Morris MD Erythrocyte distribution width (RBC) [Ratio] 12.2 % Normal 11.8-14.4 [facility] Comment on above: Performed By: #### T ROPI, CDP, PTT, PT, BNP, BMP #### [address] [place], [facility] Manager Express: Rito Morris MD Hematocrit (Bld) [Volume fraction] 47.8 % Normal 40.7-50.3 [facility] Comment on above: Performed By: #### T ROPI, CDP, PTT, PT, BNP, BMP #### [address] [place] [address] Manager Express: Rito Morris MD Hemoglobin (Bld) [Mass/Vol] 15.9 g/dL Normal 13.0-17.0 [facility] Comment on above: Performed By: #### T ROPI, CDP, PTT, PT, BNP, BMP #### [facility] [address] [place] [address] Manager Express: Rito Mroris MD Immature granulocytes (Bld) [#/Vol] 1 % High 0 [facility] Comment on above: Performed By: #### T ROPI, CDP, PTT, PT, BNP, BMP #### [facility] [address] [place] [facility] Manager Express: Rito Morris MD Lymphocytes (Bld) [#/Vol] 0.71 10*3/uL Low 1.10-3.70 [facility] Comment on above: Performed By: #### T ROPI, CDP, PTT, PT, BNP, BMP #### [address] [place] [facility] Manager Express: Rito Morris MD Lymphocytes/100 WBC (Bld) 8 % Low 24-43 [facility] Comment on above: Performed By: #### T ROPI, CDP, PTT, PT, BNP, BMP #### [address] [place] [facility] Manager Express: Rito Morris MD MCH (RBC) [Entitic mass] 30.6 pg Normal 25.2-33.5 [facility] Comment on above: Performed By: #### T ROPI, CDP, PTT, PT, BNP, BMP #### [facility] [address] [place] [facility] Manager Express: Rito Morris MD MCHC (RBC) [Mass/Vol] 33.3 g/dL Normal 28.4-34.8 [facility] Comment on above: Performed By: #### T ROPI, CDP, PTT, PT, BNP, BMP #### [facility] [address] [place] [facility] Manager Express: Rito Morris MD MCV (RBC) [Entitic vol] 91.9 fL Normal 82.6-102.9 [facility] Comment on above: Performed By: #### T ROPI, CDP, PTT, PT, BNP, BMP #### [facility] [address] [place], [place] [id number] Manager Express: Rito Morris MD Monocytes (Bld) [#/Vol] 0.80 10*3/uL Normal 0.10-1.20 [facility] Comment on above: Performed By: #### T ROPI, CDP, PTT, PT, BNP, BMP #### [facility] [address] [place], [place] [id number] Manager Express: Rito Morris MD Monocytes/100 WBC (Bld) 9 % Normal 3-12 [facility] Comment on above: Performed By: #### T ROPI, CDP, PTT, PT, BNP, BMP #### [facility] [address] [place], [facility] Manager Express: Rito Morris MD Morphology Terrence (Bld) [Interp] Normal Normal [facility] Comment on above: Performed By: #### T ROPI, CDP, PTT, PT, BNP, BMP #### [facility] [address] [place], [place] [id number] Manager Express: Rito Morris MD Neutrophil (Seg) 78 % High 36-65 [facility] Comment on above: Performed By: #### T ROPI, CDP, PTT, PT, BNP, BMP #### [facility] [address] [place], [place] [id number] Manager Express: Rito Morris MD NRBC Automated 0.0 per 100 WBC Normal 0.0 [facility] Comment on above: Performed By: #### T ROPI, CDP, PTT, PT, BNP, BMP #### [facility] [address] [place] [address] Manager Express: Rito Morris MD Platelet mean volume (Bld) [Entitic vol] 9.6 fL Normal 8.1-13.5 [facility] Comment on above: Performed By: #### T ROPI, CDP, PTT, PT, BNP, BMP #### [facility] [address] [place] [facility] Manager Express: Rito Morris MD Platelets (Bld) [#/Vol] NOT REPORTED Normal [facility] Comment on above: Performed By: #### T ROPI, CDP, PTT, PT, BNP, BMP #### [facility] [address] [place], [facility] Manager Express: Rito Morris MD Platelets (Bld) [#/Vol] 185 10*3/uL Normal 138-453 [facility] Comment on above: Performed By: #### T ROPI, CDP, PTT, PT, BNP, BMP #### [address] [place], [place] [address] Manager Express: Rito Morris MD RBC (Bld) [#/Vol] 5.20 10*6/uL Normal 4.21-5.77 [facility] Comment on above: Performed By: #### T ROPI, CDP, PTT, PT, BNP, BMP #### [address] [place] [id number] Manager Express: Rito Morris MD RBC morphology finding Nom (Bld) NOT REPORTED Normal [facility] Comment on above: Performed By: #### T ROPI, CDP, PTT, PT, BNP, BMP #### [address] [place], [facility] Manager Express: Rito Morris MD WBC (Bld) [#/Vol] 8.9 10*3/uL Normal 3.5-11.3 [facility] Comment on above: Performed By: #### T ROPI, CDP, PTT, PT, BNP, BMP #### [address] [place], [facility] Manager Express: Rito Morris MD WBC Morphology NOT REPORTED Normal [facility] Comment on above: Performed By: #### T ROPI, CDP, PTT, PT, BNP, BMP #### [facility] [address] [place], [place] [id number] Manager Express: Rito Morris MD Lactic Acidon 05-01-2019 Lactate [Moles/Vol] NOT REPORTED Normal 0.7-2.1 [facility] Comment on above: Performed By: #### T ROPI, CDP, PTT, PT, BNP, BMP #### [facility] [address] [place] [id number] Manager Express: Rito Morris MD Lactate [Moles/Vol] 2.1 mmol/L Normal 0.5-2.2 [facility] Comment on above: Performed By: #### T ROPI, CDP, PTT, PT, BNP, BMP #### [facility] [address] [place], [place] [id number] Manager Express: Rito Morris MD Lipaseon 05-01-2019 Lipase [Catalytic activity/Vol] 23 U/L Normal 13-60 [facility] Comment on above: Performed By: #### T ROPI, CDP, PTT, PT, BNP, BMP #### [facility] [address] [place], [place] [id number] Manager Express: Rito Morris MD Liver Profileon 05-01-2019 Albumin [Mass/Vol] 4.3 g/dL Normal 3.5-5.2 [facility] Comment on above: Performed By: #### T ROPI, CDP, PTT, PT, BNP, BMP #### [facility] [address] [place] [address] Manager Express: Rito Morris MD Albumin/Globulin [Mass ratio] 1.5 {ratio} Normal 1.0-2.5 [facility] Comment on above: Performed By: #### T ROPI, CDP, PTT, PT, BNP, BMP #### [facility] [address] [place], [place] [id number] Manager Express: Rito Morris MD Alkaline Phos 65 U/L Normal 40-129 [facility] Comment on above: Performed By: #### T ROPI, CDP, PTT, PT, BNP, BMP #### [facility] [address] [place], [facility] Manager Express: Rito Morris MD ALT [Catalytic activity/Vol] 12 U/L Normal 5-41 [facility] Comment on above: Performed By: #### T ROPI, CDP, PTT, PT, BNP, BMP #### [facility] [address] [place], [facility] Manager Express: Rito Morris MD AST [Catalytic activity/Vol] 16 U/L Normal <40 [facility] Comment on above: Performed By: #### T ROPI, CDP, PTT, PT, BNP, BMP #### [facility] [address] [place] [address] Manager Express: Rito oMrris MD Bilirubin Ql (U) 0.61 mg/dL Normal 0.3-1.2 [facility] Comment on above: Performed By: #### T ROPI, CDP, PTT, PT, BNP, BMP #### [address] [place], [facility] Manager Express: Rito Morris MD Bilirubin, Indirect CANNOT BE CALCULATED Normal 0.00-1 .00 [facility] Comment on above: Performed By: #### T ROPI, CDP, PTT, PT, BNP, BMP #### [facility] [address] [place] [address] Manager Express: Rito Morris MD Bilirubin.direct [Mass/Vol] mg/dL Normal <0.31 [facility] Comment on above: Performed By: #### T ROPI, CDP, PTT, PT, BNP, BMP #### [facility] [address] [place], [place] [id number] Manager Express: Rito Morris MD Globulin (S) [Mass/Vol] NOT REPORTED Normal 1.5-3.8 [facility] Comment on above: Performed By: #### T ROPI, CDP, PTT, PT, BNP, BMP #### [facility] [address] [place], [facility] Manager Express: Rito Morris MD Protein [Mass/Vol] 7.2 g/dL Normal 6.4-8.3 [facility] Comment on above: Performed By: #### T ROPI, CDP, PTT, PT, BNP, BMP #### [facility] [address] [place], [facility] Manager Express: Rito Morris MD Troponinon 05-01-2019 Troponin I.cardiac [Mass/Vol] NOT REPORTED Normal 0-22 [facility] Comment on above: Performed By: #### T ROPI, CDP, PTT, PT, BNP, BMP #### [facility] [address] [place], [facility] Manager Express: Rito Morris MD Troponin I.cardiac [Mass/Vol] Normal [facility] Comment on above: Result Comment: Refe rence [...] CDP, PTT, PT, BNP, BMP #### [facility] [address] [place] [address] Manager Express: Rito Morris MD Troponin I.cardiac [Mass/Vol] ng/mL Normal <0.03 [facility] Comment on above: Result Comment: Trop onin T results cannot be compared to Troponin-I results. Performed By: #### T ROPI, CDP, PTT, PT, BNP, BMP #### [facility] [address] [place] [address] Manager Express: Rito Morris MD US GALLBLADDER RUQon 019 [...] visible cholelithiasis. No significant pericholecystic fluid. The hr advisor did not comment on the Houser's sign. [...] Kassie Hurtado DO 05/01/19 Final result Normal [facility] APTTon 04-28-2019 aPTT Coag (Bld) [Time] 25.4 s Normal 23.2-34.4 [facility] Comment on above: Performed By: #### T ROPI, CDP, PTT, PT, BNP, BMP #### [facility] [address] [place] [address] Manager Express: Rito Morris MD Basic Metabolic Profon 04-28 (cont.) Normal [facility] Comment on above: Result Comment: Aver age GFR for 50-59 years old: 93 mL/min/1.73sq m Chronic Kidney Disease: <60 mL/min/1.73sq m Kidney failure: <15 mL/min/1.73sq m eGFR calculated using average adult body mass. Additional eGFR calculator available at: http://www.[employer].Minilogs/multiple_crcl_2012.htm Performed By: #### T ROPI, CDP, PTT, PT, BNP, BMP #### [facility] [address] [place] [address] Manager Express: Rito Morris MD Anion gap [Moles/Vol] 11 mmol/L Normal 9-17 [facility] Comment on above: Performed By: #### T ROPI, CDP, PTT, PT, BNP, BMP #### [facility] [address] [place] [address] Manager Express: Rito Morris MD BUN/CRE Ratio 13 Normal 9-20 [facility] Comment on above: Performed By: #### T ROPI, CDP, PTT, PT, BNP, BMP #### [facility] [address] [place] [address] Manager Express: Rito Morris MD Calcium [Mass/Vol] 8.9 mg/dL Normal 8.6-10.4 [facility] Comment on above: Performed By: #### T ROPI, CDP, PTT, PT, BNP, BMP #### [facility] [address] [place] [address] Manager Express: Rito Morris MD Chloride [Moles/Vol] 101 mmol/L Normal 98-107 [facility] Comment on above: Performed By: #### T ROPI, CDP, PTT, PT, BNP, BMP #### [facility] [address] [place] [address] Manager Express: Rito Morris MD CO2 [Moles/Vol] 26 mmol/L Normal 20-31 [facility] Comment on above: Performed By: #### T ROPI, CDP, PTT, PT, BNP, BMP #### [facility] [address] [place] [address] Manager Express: Rito Morris MD Creatinine [Mass/Vol] 0.86 mg/dL Normal 0.70-1.20 [facility] Comment on above: Performed By: #### T ROPI, CDP, PTT, PT, BNP, BMP #### [facility] [address] [place], [place] [id number] Manager Express: Rito Morris MD GFR, Amer >60 Normal >60 [facility] Comment on above: Performed By: #### T ROPI, CDP, PTT, PT, BNP, BMP #### [facility] [address] [place], [place] [id number] Manager Express: Rito Morris MD GFR,non Amer >60 Normal >60 [facility] Comment on above: Performed By: #### T ROPI, CDP, PTT, PT, BNP, BMP #### [facility] [address] [place], [place] [id number] Manager Express: Rito Morris MD Glucose [Mass/Vol] 100 mg/dL High 70-99 [facility] Comment on above: Performed By: #### T ROPI, CDP, PTT, PT, BNP, BMP #### [facility] [address] [place], [place] [id number] Manager Express: Rito Morris MD Potassium [Moles/Vol] 3.9 mmol/L Normal 3.7-5.3 [facility] Comment on above: Performed By: #### T ROPI, CDP, PTT, PT, BNP, BMP #### [facility] [address] [place], [place] [id number] Manager Express: Rito Morris MD Sodium [Moles/Vol] 138 mmol/L Normal 135-144 [facility] Comment on above: Performed By: #### T ROPI, CDP, PTT, PT, BNP, BMP #### [facility] [address] [place] [address] Manager Express: Rito Morris MD Staging: Normal [facility] Comment on above: Result Comment: Stag e 1: Some kidney damage normal GFR Stage 2: Mild kidney damage GFR 60-89 Stage 3: Moderate kidney damage GFR 30-59 Stage 4: Severe kidney damage GFR 15-29 Stage 5: Severe kidney damage GFR <15 ESRD - chronic treatment by dialysis or transplant Performed By: #### T ROPI, CDP, PTT, PT, BNP, BMP #### [facility] [address] [place] [address] Manager Express: Rito Morris MD Urea nitrogen [Mass/Vol] 11 mg/dL Normal 6-20 [facility] Comment on above: Performed By: #### T ROPI, CDP, PTT, PT, BNP, BMP #### [facility] [address] [place] [address] Manager Express: Rito Morris MD Brain Natri. Peptideon 04-28 Natriuretic peptide B (Bld) [Mass/Vol] 35 pg/mL Normal <300 [facility] Comment on above: Result Comment: Pro- BNP results cannot be compared to BNP results. Performed By: #### T ROPI, CDP, PTT, PT, BNP, BMP #### [facility] [address] [place] [address] Manager Express: Rito Morris MD Natriuretic peptide B (Bld) [Mass/Vol] Pro-BNP Reference Range: Normal [facility] Comment on above: Result Comment: Rule Out: <300 Shore Zone: Age <50 300-450 Age 50-75 300-900 Age >75 300-1800 Usually represents mild to moderate HF but other cardiopulmonary causes cannot be ruled out. Rule In: Age <50 >450 Age 50-75 >900 Age >75 >1800 Performed By: #### T ROPI, CDP, PTT, PT, BNP, BMP #### [facility] [address] [place] [address] Manager Express: Rito Morris MD CBC with Diffon 04-28-2019 Abs. Basophil <0.03 Normal 0.00-0.20 [facility] Comment on above: Performed By: #### T ROPI, CDP, PTT, PT, BNP, BMP #### [facility] [address] [place], [place] [address] Manager Express: Rito Morris MD Abs.Imm.Granulocyte <0.03 Normal 0.00-0.30 [facility] Comment on above: Performed By: #### T ROPI, CDP, PTT, PT, BNP, BMP #### [facility] [address] [place] [address] Manager Express: Rito Morris MD Abs.Neutrophil (Seg) 2.03 k/uL Normal 1.50-8.10 [facility] Comment on above: Performed By: #### T ROPI, CDP, PTT, PT, BNP, BMP #### [address] [place] [id number] Manager Express: Rito Morris MD Auto Diff Performed NOT REPORTED Normal [facility] Comment on above: Performed By: #### T ROPI, CDP, PTT, PT, BNP, BMP #### [address] [place] [id number] Manager Express: Rito Morris MD Basophils/100 WBC (Bld) 0 % Normal 0-2 [facility] Comment on above: Performed By: #### T ROPI, CDP, PTT, PT, BNP, BMP #### [address] [place], [place] [address] Manager Express: Rito Morris MD Eosinophils (Bld) [#/Vol] 10*3/uL Normal 0.00-0.44 [facility] Comment on above: Performed By: #### T ROPI, CDP, PTT, PT, BNP, BMP #### [address] [place], [place] [id number] Manager Express: Rito Morris MD Eosinophils/100 WBC (Bld) 0 % Low 1-4 [facility] Comment on above: Performed By: #### T ROPI, CDP, PTT, PT, BNP, BMP #### [address] [place] [address] Manager Express: Rito Morris MD Erythrocyte distribution width (RBC) [Ratio] 12.0 % Normal 11.8-14.4 [facility] Comment on above: Performed By: #### T ROPI, CDP, PTT, PT, BNP, BMP #### [facility] [address] [place] [address] Manager Express: Rito Morris MD Hematocrit (Bld) [Volume fraction] 48.2 % Normal 40.7-50.3 [facility] Comment on above: Performed By: #### T ROPI, CDP, PTT, PT, BNP, BMP #### [address] [place] [address] Manager Express: Rito Morris MD Hemoglobin (Bld) [Mass/Vol] 15.8 g/dL Normal 13.0-17.0 [facility] Comment on above: Performed By: #### T ROPI, CDP, PTT, PT, BNP, BMP #### [address] [place] [address] Manager [employer]: Rito Morris MD Immature granulocytes (Bld) [#/Vol] 0 % Normal 0 [facility] Comment on above: Performed By: #### T ROPI, CDP, PTT, PT, BNP, BMP #### [address] [place], [facility] Manager Express: Rito Morris MD Lymphocytes (Bld) [#/Vol] 1.22 10*3/uL Normal 1.10-3.70 [facility] Comment on above: Performed By: #### T ROPI, CDP, PTT, PT, BNP, BMP #### [address] [place] [id number] Manager Express: Rito Morris MD Lymphocytes/100 WBC (Bld) 33 % Normal 24-43 [facility] Comment on above: Performed By: #### T ROPI, CDP, PTT, PT, BNP, BMP #### [facility] [address] [place] [id number] Manager Express: Rito Morris MD MCH (RBC) [Entitic mass] 30.6 pg Normal 25.2-33.5 [facility] Comment on above: Performed By: #### T ROPI, CDP, PTT, PT, BNP, BMP #### [facility] [address] [place] [facility] Manager Express: Rito Morris MD MCHC (RBC) [Mass/Vol] 32.8 g/dL Normal 28.4-34.8 [facility] Comment on above: Performed By: #### T ROPI, CDP, PTT, PT, BNP, BMP #### [address] [place] [id number] Manager Express: Rito Morris MD MCV (RBC) [Entitic vol] 93.4 fL Normal 82.6-102.9 [facility] Comment on above: Performed By: #### T ROPI, CDP, PTT, PT, BNP, BMP #### [address] [place] [id number] Manager Express: Rito Morris MD Monocytes (Bld) [#/Vol] 0.45 10*3/uL Normal 0.10-1.20 [facility] Comment on above: Performed By: #### T ROPI, CDP, PTT, PT, BNP, BMP #### [facility] [address] [place] [id number] Manager Express: Rito Morris MD Monocytes/100 WBC (Bld) 12 % Normal 3-12 [facility] Comment on above: Performed By: #### T ROPI, CDP, PTT, PT, BNP, BMP #### [address] [place], [place] [id number] Manager Express: Rito Morris MD Neutrophil (Seg) 55 % Normal 36-65 [facility] Comment on above: Performed By: #### T ROPI, CDP, PTT, PT, BNP, BMP #### [facility] [address] [place] [id number] Manager [employer]: Rito Morris MD NRBC Automated 0.0 per 100 WBC Normal 0.0 [facility] Comment on above: Performed By: #### T ROPI, CDP, PTT, PT, BNP, BMP #### [facility] [address] [place] [id number] Manager Express: Rito Morris MD Platelet mean volume (Bld) [Entitic vol] 9.6 fL Normal 8.1-13.5 [facility] Comment on above: Performed By: #### T ROPI, CDP, PTT, PT, BNP, BMP #### [address] [place] [facility] Manager Express: Rito Morris MD Platelets (Bld) [#/Vol] NOT REPORTED Normal [facility] Comment on above: Performed By: #### T ROPI, CDP, PTT, PT, BNP, BMP #### [address] [place], [facility] Manager Express: Rito Morris MD Platelets (Bld) [#/Vol] 181 10*3/uL Normal 138-453 [facility] Comment on above: Performed By: #### T ROPI, CDP, PTT, PT, BNP, BMP #### [facility] [address] [place] [id number] Manager [employer]: Rito Morris MD RBC (Bld) [#/Vol] 5.16 10*6/uL Normal 4.21-5.77 [facility] Comment on above: Performed By: #### T ROPI, CDP, PTT, PT, BNP, BMP #### [facility] [address] [place], [place] [phone] Manager [employer]: Rito Morris MD RBC morphology finding Nom (Bld) NOT REPORTED Normal [facility] Comment on above: Performed By: #### T ROPI, CDP, PTT, PT, BNP, BMP #### [facility] [address] [place] [id number] [employer]: Rito Morris MD WBC (Bld) [#/Vol] 3.7 10*3/uL Normal 3.5-11.3 [facility] Comment on above: Performed By: #### T ROPI, CDP, PTT, PT, BNP, BMP #### [facility] [address] [place], [place] [phone] Manager [employer]: Rito Morris MD WBC Morphology NOT REPORTED Normal [facility] Comment on above: Performed By: #### T ROPI, CDP, PTT, PT, BNP, BMP #### [address] [place], [place] [id number] Manager [employer]: Rito Morris MD CT CHEST ABDOMEN PELVIS [...] Natacha Hernandez MD 04/28/19 Final result Normal [facility] Lipaseon 04-28-2019 Lipase [Catalytic activity/Vol] 172 U/L High 13-60 [facility] Comment on above: Performed By: #### L IVP, LIP #### [facility] [address] [place] [address] Manager [employer]: Rito Morris MD Liver Profileon 04-28-2019 Albumin [Mass/Vol] 4.4 g/dL Normal 3.5-5.2 [facility] Comment on above: Performed By: #### L IVP, LIP #### [facility] [address] [place] [address] [employer]: Rito Morris MD Albumin/Globulin [Mass ratio] 1.5 {ratio} Normal 1.0-2.5 [facility] Comment on above: Performed By: #### L IVP, LIP #### [facility] [address] [place] [address] [employer]: Rito Morris MD Alkaline Phos 68 U/L Normal 40-129 [facility] Comment on above: Performed By: #### L IVP, LIP #### [facility] [address] [place] [address] [employer]: Rito Morris MD ALT [Catalytic activity/Vol] 12 U/L Normal 5-41 [facility] Comment on above: Performed By: #### L IVP, LIP #### [facility] [address] [place], [place] [phone] [employer]: Rito Morris MD AST [Catalytic activity/Vol] 14 U/L Normal <40 [facility] Comment on above: Performed By: #### L IVP, LIP #### [facility] [address] [place], [place] [phone] [employer]: Rito Morris MD Bilirubin Ql (U) 0.44 mg/dL Normal 0.3-1.2 [facility] Comment on above: Performed By: #### L IVP, LIP #### [facility] [address] [place] [address] [employer]: Rito Morris MD Bilirubin, Indirect CANNOT BE CALCULATED Normal 0.00-1 .00 [facility] Comment on above: Performed By: #### L IVP, LIP #### [address] [place] [address] [employer]: Rito Morris MD Bilirubin.direct [Mass/Vol] mg/dL Normal <0.31 [facility] Comment on above: Performed By: #### L IVP, LIP #### [facility] [address] [place], [place] [phone] [employer]: Rito Morris MD Globulin (S) [Mass/Vol] NOT REPORTED Normal 1.5-3.8 [facility] Comment on above: Performed By: #### L IVP, LIP #### [facility] [address] [place], [place] [id number] [employer]: Rito Morris MD Protein [Mass/Vol] 7.3 g/dL Normal 6.4-8.3 [facility] Comment on above: Performed By: #### L IVP, LIP #### [facility] [address] [place] [address] [employer]: Rito Morris MD PTon 04-28-2019 INR Coag (PPP) [Relative time] 1.1 {INR} Normal 0.9-1.2 [facility] Comment on above: Performed By: #### T ROPI, CDP, PTT, PT, BNP, BMP #### [facility] [address] [place], [place] [id number] [employer]: Rito Morris MD PT Coag (PPP) [Time] 10.8 s Normal 9.7-12.2 [facility] Comment on above: Performed By: #### T ROPI, CDP, PTT, PT, BNP, BMP #### [facility] [address] [place], [place] [phone] [employer]: Rito Morris MD Troponinon 04-28-2019 Troponin I.cardiac [Mass/Vol] NOT REPORTED Normal 0-22 [facility] Comment on above: Performed By: #### T ROPI, CDP, PTT, PT, BNP, BMP #### [address] [place], [place] [phone] [employer]: Rito Morris MD Troponin I.cardiac [Mass/Vol] Normal [facility] Comment on above: Result Comment: Refe rence [...] ROPI, CDP, PTT, PT, BNP, BMP #### [facility] [address] [place], [facility] Manager [employer]: Rito Morris MD Troponin I.cardiac [Mass/Vol] ng/mL Normal <0.03 [facility] Comment on above: Result Comment: Trop onin T results cannot be compared to Troponin-I results. Performed By: #### T ROPI, CDP, PTT, PT, BNP, BMP #### [facility] [address] [place], [facility] Manager [employer]: Rito Morris MD Urinalysis, Routineon 2018 Acetoacetic Acid,Ur TRACE Abnormal NEG [facility] Comment on above: Performed By: #### U MICAO, UA #### [address] [place], [facility] Manager [employer]: Rito Morris MD Bilirubin, SemiQt,Ur Negative Normal NEG [facility] Comment on above: Performed By: #### U MICAO, UA #### [facility] [address] [place], [facility] Manager [employer]: Rito Morris MD Color (U) YELLOW Normal L [facility] Comment on above: Performed By: #### U MICAO, UA #### [address] [place], [facility] Manager [employer]: Rito Morris MD Comment NOT REPORTED Normal [facility] Comment on above: Performed By: #### U MICAO, UA #### [facility] [address] [place], [facility] Manager [employer]: Rito Morris MD Glucose Ql (U) Negative Normal NEG [facility] Comment on above: Performed By: #### U MICAO, UA #### [facility] [address] [place], [place] [phone] Manager [employer]: Rito Morris MD Hemoglobin, Ur Negative Normal NEG [facility] Comment on above: Performed By: #### U MICAO, UA #### [facility] [address] [place], [place] [phone] Manager [employer]: Rito Morris MD Leukocyte esterase Test strip Ql (U) Negative Normal NEG [facility] Comment on above: Performed By: #### U MICAO, UA #### [facility] [address] [place], [place] [phone] Manager [employer]: Rito Morris MD Nitrite,Ur Negative Normal NEG [facility] Comment on above: Performed By: #### U MICAO, UA #### [facility] [address] [place], [place] [phone] [employer]: Rito Morris MD pH (U) 5.5 [pH] Normal 5.0-9.0 [facility] Comment on above: Performed By: #### U MICAO, UA #### [facility] [address] [place], [facility] Manager [employer]: Rito Morris MD Protein Ql (U) Negative Normal NEG [facility] Comment on above: Performed By: #### U MICAO, UA #### [address] [place], [facility] Manager [employer]: Rito Morris MD Specific gravity (U) [Rel density] >1.030 High 1.010-1.020 [facility] Comment on above: Performed By: #### U MICAO, UA #### [facility] [address] [place], [facility] Manager [employer]: Rito Morris MD Turbidity CLEAR Normal CLEAR [facility] Comment on above: Performed By: #### U MICAO, UA #### [facility] [address] [place] [address] [employer]: Rito Morris MD Urobilinogen,Ur Normal Normal NORM [facility] Comment on above: Performed By: #### U MICAO, UA #### [facility] [address] [place] [address] Manager [employer]: Rito Morris MD Urinalysis,Microon 9 ----- Normal [facility] Comment on above: Performed By: #### U MICAO, UA #### [facility] [address] [place] [address] Manager [employer]: Rito Morris MD Amorphous sediment LM Ql (Urine sed) 1+ Abnormal [facility] Comment on above: Performed By: #### U MICAO, UA #### [facility] [address] [place] [address] Manager [employer]: Rito Morris MD Bacteria LM.HPF (Urine sed) [#/Area] NOT REPORTED Normal [facility] Comment on above: Performed By: #### U SUZANNEO, UA #### [address] [place] [address] Manager [employer]: Rito Morris MD Casts LM.LPF (Urine sed) [#/Area] NOT REPORTED Normal [facility] Comment on above: Performed By: #### U SUZANNEO, UA #### [address] [place] [address] Manager [employer]: Rito Morris MD Crystals LM Nom (Urine sed) NOT REPORTED Normal [facility] Comment on above: Performed By: #### U MICAO, UA #### [address] [place] [id number] Manager [employer]: Rito Morris MD Epithelial cells LM.HPF (Urine sed) [#/Area] 0 TO 2 Normal 0-5 [facility] Comment on above: Performed By: #### U MICAO, UA #### [facility] [address] [place], [place] [phone] Manager [employer]: Rito Morris MD Epithelial, Renal NOT REPORTED Normal 0 [facility] Comment on above: Performed By: #### U MICAO, UA #### [facility] [address] [place], [place] [phone] Manager [employer]: Rito Morris MD Mucus Strands NOT REPORTED Normal NONE [facility] Comment on above: Performed By: #### U MICAO, UA #### [facility] [address] [place], [place] [phone] Manager [employer]: Rito Morris MD Other Observations NOT REPORTED Normal NREQ [facility] Comment on above: Performed By: #### U MICAO, UA #### [facility] [address] [place], [place] [phone] Manager [employer]: Rito Morris MD RBC (U) [#/Vol] None Normal 0-2 [facility] Comment on above: Performed By: #### U MICAO, UA #### [facility] [address] [place], [place] [phone] Manager [employer]: Rito Morris MD Trichomonas NOT REPORTED Normal [facility] Comment on above: Performed By: #### U MICAO, UA #### [facility] [address] [place], [place] [phone] Manager [employer]: Rito Morris MD WBC (U) [#/Vol] 0 TO 2 Normal 0-5 [facility] Comment on above: Performed By: #### U MICAO, UA #### [facility] [address] [place], [facility] Manager Express: Rito Morrsi MD Yeast LM Ql (Urine sed) NOT REPORTED Normal [facility] Comment on above: Performed By: #### U MICAO, UA #### [facility] [address] [place] [address] Manager [employer]: Rito Morris MD XR CHEST PORTABLEon 04-28-20 19 XR CHEST PORTABLE EXAMINATION: ONE XRAY VIEW [...] Kiran Segal MD 04/28/19 Final result Normal [facility] Social History Date Type Detail Facility Start: 05-16-2019 End: 02-03-2024 Tobacco smoking status NHIS Former smoker [facility] [place] Start: 05-16-2019 Alcohol intake Yes [facility] Start: 04-28-2019 Alcohol Comment [facility], [place] Start: 1965 Sex Assigned At Male F [facility] History of tobacco use Cigarette Smoker [facility], [place] Sex Assigned At Not on file [place], [place] Tobacco smoking status No Smokin g Status Entered [facility] Tobacco smoking status Never [facility] Vital Signs Date Time Vital Sign Value Performing Clinician Facility 02-03-2024 08:08-0400 Blood Pressure Location Jarad PAULSON [facility] 02-03-2024 08:08-0400 Diastolic blood pressure 86 mm[Hg] Jarad PAULSON [facility] 02-03-2024 08:08-0400 Heart rate 88 /min Jarad PAULSON [facility] 02-03-2024 08:08-0400 Systolic blood pressure 126 mm[Hg] Jarad PAULSON [facility] 05-15-2023 10:35-0400 Body height 177.8 cm Brandy Ruth Other [employer] Other 05-15-2023 10:35-0400 Body mass index (BMI) [Ratio] 19.37 kg/m2 Brandy Ruth Other [employer] Other 05-15-2023 10:35-0400 Body temperature 98.2 [degF] Brandy Ruth Other [employer] Other 05-15-2023 10:35-0400 Body weight 61.24 kg Brandy Ruth Other [employer] Other 05-15-2023 10:35-0400 Diastolic blood pressure 96 mm[Hg] Brandy Ruth Other [employer] Other 05-15-2023 10:35-0400 Respiratory rate 18 /min Brandy Ruth Other [employer] Other 05-15-2023 10:35-0400 SaO2% (BldA) [Mass fraction] 97 % Brandy Ruth Other [employer] Other 05-15-2023 10:35-0400 Systolic blood pressure 121 mm[Hg] Brandy Ruth Other [employer] Other 01-07-2023 08:53-0400 Blood Pressure Location Jarad PAULSON [facility] 01-07-2023 08:53-0400 Diastolic blood pressure 83 mm[Hg] Jarad PAULSON [facility] 01-07-2023 08:53-0400 Heart rate 90 /min Jarad PAULSON [facility] 01-07-2023 08:53-0400 Respiratory rate 16 /min Jaradbelinda PAULSON [facility] 01-07-2023 08:53-0400 Systolic blood pressure 111 mm[Hg] Jarad PAULSON [facility] 12-22-2022 07:38-0400 Blood Pressure Location Jarad PAULSON [facility] 12-22-2022 07:38-0400 Diastolic blood pressure 87 mm[Hg] Jarad PAULSON [facility] 12-22-2022 07:38-0400 Heart rate 75 /min Jarad PAULSON [facility] 12-22-2022 07:38-0400 Respiratory rate 16 /min Jarad PAULSON [facility] 12-22-2022 07:38-0400 Systolic blood pressure 132 mm[Hg] Jarad PAULSON [facility] 12-03-2022 09:53-0500 Body height 177.8 cm II Parth García Work Phone: [facility] 12-03-2022 09:53-0500 Body weight 61.23 kg II Parth García Work Phone: [facility] 05-16-2019 11:50-0400 BP Diastolic 66 mm[Hg] [facility] [place] 05-16-2019 11:50-0400 BP Systolic 110 mm[Hg] [facility] [place] 05-16-2019 11:50-0400 Pulse (Heart Rate) 74 /min [facility] [place] 05-16-2019 11:50-0400 Pulse Oximetry 98 % [facility] [place] 05-16-2019 11:50-0400 Respiratory Rate 16 /min Bg Humphrey [facility], [place] 05-16-2019 11:15-0400 Body Temperature 97.2 [degF] [facility] [place] 05-16-2019 06:30-0400 BMI (Body Mass Index) 20.23 kg/m2 Bg Humphrey [facility], [place] 05-16-2019 06:30-0400 Body weight 63.96 kg Bg Humphrey [facility] , [place] 05-16-2019 06:30-0400 Height 177.8 cm [facility] [place] Functional Status Date Assessment Result Facility 02-03-2024 Functional Status N/A [facility] 01-07-2023 Functional Status N/A [facility] 12-22-2022 Functional Status N/A [facility] Clinical Notes 05-15-2013 to 02-03-2024 Note Date [...] including vitamins, herbs, eye drops, creams, and ssub-lcp-bxzpxux medicines. Any problems you or family members [...] provider tells you to take them. Taking moqx-gsc-nvgrbcp medicines, vitamins, herbs, and supplements. General instructions [...] provider. Document Revised: 09/17/2022 Document Reviewed: 09/17/2022 [employer] Patient Education 2022 [employer]. Follow Up Care 01/12/2024 10:26:16 With:SHEA JARA, Jarad Hendrickson, URL Address: [address] [place] [address] [place] [address]- When: Unknown [facility] César 05-15-2023 Evaluation note Encounter Date Diagnosis [...] the ER for worsening symptoms or concerns [employer] Other 04-14-2023 Hospital Discharge instructions Patient Education [...] Follow these instructions at home: Medicines Take essv-ams-afdotmd and prescription medicines only as told by [...] or the blood stops without treatment. Take kivp-wuh-ctjlhjn and prescription medicines only as told by your health care provider. Drink enough fluid to keep your urine clear or pale yellow. This information is not intended to replace advice given to you by your health care provider. Make sure you discuss any questions you have with your health care provider. Document Released: 09/12/2006 Document Revised: 02/06/2020 Document Reviewed: 10/15/2017 [employer] Patient Education 2019 [employer]. 01/07/2023 07:52:39 Benign Prostatic Hyperplasia Benign Prostatic [...] urethra. Follow these instructions at home: Take usvp-hpe-igdsxqa and prescription medicines only as told by [...] 09/12/2006 Document Revised: 08/07/2019 Document Reviewed: 10/17/2017 [employer] Patient Education 2020 [employer]. Follow Up Care 12/13/2022 16:29:11 With:SHEA JARA, Jarad Hendrickson, URL Address: [facility] [address] [place] [address] [phone] When: Unknown Comments:Will schedule Cysto, Parrish RG, parrish ureter [facility] 03-29-2023 Hospital Discharge instructions Patient Education 12/22/2022 [...] if anything looks unusual. Men with a hkimeq-toqe-xvvohf risk for skin cancer may want to see a music therapy specialist (cook apprentice) for an annual body check. Where to find more information National [employer]: https://www.cancer.gov/about-cancer/screening Centers for Disease Control and Prevention: https://www.cdc.gov/cancer/dcpc/prevention/screening.htm [employer]: https://www.cancer.org/latest-news/0-nntofb-urbpjpkwx-lugpe-rxv-xoo.html Contact a health care provider if: You [...] 2017 Document Revised: 06/01/2019 Document Reviewed: 2017 [employer] Patient Education [employer] Follow Up Care 12/14/2022 15:49:50 With:SHEA JARA, Jarad Hendrickson, URL Address: [facility] [address] , [place] [address]- When: Unknown [facility] 02-21-2023 NotePROCEDURE: XR SHOULDER LT 2V or [...] Electronically authenticated by: GRISEL THOMAS Date: 2022-11-16 10:35[facility]01-27-2023 Evaluation + Plan note Diagnostic Tests Pending * UroVysion Fish and Urine Cyto ([facility]) 10/22/22 [facility] 08-20-2013 History general Narrative - Reported* Type Description Date Medical History bladder cancer 10 years ago Surgical History cholecystectomy Surgical History bladder scope [employer] Other Evaluation + Plan note Future Appointments Appointment Date:01/07/2023 08:45:00 AM Scheduled Provider:Jarad PAULSON MD Location:[facility] Appointment Type:URO Office Visit Diagnostic Tests Pending * Prostate Histology ([facility]) 12/22/22 [facility] Evaluation + Plan note Future Appointments Appointment Date:03/09/2024 09:00:00 AM Scheduled Provider: Location:[facility] Appointment Type:URO Nurse Visit Appointment Date:03/16/2024 08:45:00 AM Scheduled Provider:Jarad PAULSON MD Location:[facility] Appointment Type:URO Office Visit [facility] Evaluation + Plan note Future Appointments Appointment Date:03/09/2024 09:00:00 AM Scheduled Provider: Location:[facility] Appointment Type:URO Nurse Visit Appointment Date:03/16/2024 08:45:00 AM Scheduled Provider:Jarad PAULSON MD Location:[facility] Appointment Type:URO Office Visit Diagnostic Tests Pending * UroVysion Fish and Urine Cyto ([facility]) [facility] Work Phone: Hospital course Narrative No data available for this section [facility] Hospital Discharge instructions No data available for this section [facility] Progress note No data available for this section [facility] Discharge Instructions * Instructions* Mary Barrett RN - 05/16/2019 SAME DAY SURGERY DISCHARGE [...] sent through Care Everywhere. * Cholecystectomy: Post-op (Hungarian) documented in this encounter History of Present [...] FoundDocuments on File Type Date Recorded Patient [employer] Senior Specialist Expl anation Advance Directives and Living Will Power of Public Health Latest Code Status on File Code Status [...] Referred To Contact Diagnoses Cholelithiasis CHOLELITHIASIS Procedures OR LAP,CHOLECYSTECTOMY CHOLECYSTECTOMY LAPAROSCOPIC ROBOTIC Bg Humphrey MD [address] [place] [address] [facility] (unrecognized sect ion and content) No Status Records FoundNo Status Records FoundNo Status Records FoundNo Status Records FoundNo Status Records Found INFORMATION SOURCE (unrecogn ized section and content) DATE CREATED AUTHOR 05/18/2019 [facility] DATE CREATED AUTHOR AUTHOR'S ORGANIZ ATION 12/10/2022 [facility] DATE CREATED AUTHOR AUTHOR'S ORGANIZ ATION 03/06/2023 [facility] [place] [facility] DATE CREATED AUTHOR AUTHOR'S ORGANIZ ATION 02/13/2024 [facility] DATE CREATED AUTHOR AUTHOR'S ORGANIZ ATION 02/23/2024 [facility] Patient Care team informatio n (unrecognized section [...] BE BASED ON THE PRIMARY CLINICAL RECORDS. [employer] provides no warranty or guarantee of the accuracy or completeness of information in this document.
--- NOTE | 2024-03-01 09:26 | PC.NURSE ---
2 previous IV attempts by other staff member
[2024-03-01] MEDS: LACTATED RINGER'S SOLUTION 1,000 ML 50 ML IV (09:27)
--- NOTE | 2024-03-01 11:25 | P.URON_ITS ---
Urology Surgery Operative Note Operative Note Procedure Date: 03/01/24 Time Out Performed: yes Pre-op Diagnosis: Bladder tumor Post-op Diagnosis: same as pre-op Procedures performed: 1. Cystoscopy. 2. 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 On surveillance cystoscopy a new tumor was found at the bladder neck. He now presents for cystoscopy and TURBT. He has signed an informed consent after all risks were explained Detailed description of Procedure: The patient was brought to the operating room and placed on the operating room table in the supine position. SCDs were placed on the lower extremities and turned on and functioning during the entire case. Timeout was done by all parties in the room. We all agreed upon the patient's identification and the planned procedures for this patient. Genn. anesthesia was then administered. The patient was then repositioned into the modified dorsal lithotomy position. All pressure points were satisfactorily padded. Genitalia were sterilely prepped and draped in usual fashion.I started by passing a 26 Angolan Olympus resectoscope with a standard bipolar loop electrode per urethra and into the bladder. Careful panendoscopy revealed no evidence of any tumors aside from the tumor at the bladder neck on his left side. The ureteral orifices were away away from the bladder neck. I then uniformly and deeply resected this tumor. The resection bed was coagulated. The Ilich evacuator was used to get the tumor pieces out. These were sent for permanent sections. Upon completion, there was no evidence of bleeding. There were no other tumors. I elected not to place a Chowdhury catheter. The bladder was drained of its contents and the scope was then removed. The anesthetic was then reversed. He was then transferred to a [facility] bed and wheeled to PACU in stable condition.
== END 2024-03-01 12:34 | disposition home or self-care (01) ==
PROVIDERS: PCP Internal Medicine; Visit Provider Urology
PROC: (CPT 912; principal; 2024-03-01 10:00)
DX: C67.5 Malignant neoplasm of bladder neck (principal); Z85.51 Personal history of malignant neoplasm of bladder; Z87.891 Personal history of nicotine dependence; N40.2 Nodular prostate without lower urinary tract symptoms; R97.20 Elevated prostate specific antigen [PSA]; N40.1 Benign prostatic hyperplasia with lower urinary tract symptoms; N26.1 Atrophy of kidney (terminal); Q62.5 Duplication of ureter; R31.21 Asymptomatic microscopic hematuria; Z90.49 Acquired absence of other specified parts of digestive tract
CPT/HCPCS: 52234; 36415; 88307; J1094; J2704

== ENCOUNTER 2024-09-04 12:15 | Day surgery (SDC) | payer OTHER, SELFPAY ==
[2024-09-04 12:36] VITALS: BP 137/85; PULSE 93; TEMP 36.4; O2SAT 98
[2024-09-04] MEDS: GENTAMICIN SULFATE 80 MG/2 ML VIAL INJ (12:37)
[2024-09-04] MEDS: LIDOCAINE HCL 1%-EPINEPHRINE 1:100,000 10 ML MDV INJ (13:15)
[2024-09-04] MEDS: LIDOCAINE 2% JELLY 30 ML UR (13:21)
--- NOTE | 2024-09-04 13:48 | P.URON_ITS ---
Urology Surgery Operative Note Operative Note Procedure Date: 09/04/24 Time Out Performed: yes Pre-op Diagnosis: 1. History of transitional cell carcinoma of the bladder. 2. Elevated PSA and prostate lesions by MRI Post-op Diagnosis: same as pre-op Procedures performed: 1. Cystoscopy. 2. Prostate MRI transrectal fusion biopsies Anesthesia: regional (Carlo prostatic block with 1% plain lidocaine) and local Primary Surgeon: Go Paulson Complications: None Estimated blood loss (mL): 5 Findings: 1. No evidence of bladder tumors. 2. Prostate lesions Specimens: 1. Prostate biopsies Indications for Procedures: This gentleman has a history of TCC of the bladder with recurrence for which he has recently had BCG. He also has prostate lesions by MRI. He now presents for cystoscopy and MRI fusion biopsies of the prostate. He has signed an informed consent after risks were explained. Detailed description of Procedure: The patient was kept on the reast lansing bed and brought into the operating room. While in the supine position genitalia were sterilely prepped and draped in the usual fashion. 2% lidocaine gel was passed per urethra. I passed a flexible cystoscope per urethra and into the bladder. Anterior urethra was normal. Prostatic urethra showed by lobar hypertrophy. Panendoscopy in the bladder revealed no evidence of any papillary tumors or stones. There were no lesions within the bladder. There was slight erythema to the mucosa which seemed to residual BCG effect. The scope was retroflexed and no new findings were noted. The scope was then removed. He was then rotated into the left lateral decubitus position. The rectum was swabbed with Betadine gauze. 2% lidocaine gel was passed per rectum. The ultrasound probe from the [employer] system was passed per rectum. Segmentation was then done so as to superimpose the MRI images onto the live ultrasound. A Carlo prostatic block with 1% lidocaine was then done in the usual fashion. The area of interest #1 was localized and we took 5 biopsies from this area of interest and they were sent separately. Then the area of interest #2 was similarly lined up. We also took 5 biopsies from this lesion and sent them separately. We then did mapped out biopsies first from the left side and then from the right side. 6 biopsies were obtained from each side and sent. The probe was removed. He was then discharged to home in good condition.
== END 2024-09-04 14:08 | disposition home or self-care (01) ==
PROVIDERS: PCP Internal Medicine; Visit Provider Urology
PROC: (CPT 52000; principal; 2024-09-04 12:55)
DX: R97.20 Elevated prostate specific antigen [PSA] (principal); Z85.51 Personal history of malignant neoplasm of bladder; N42.89 Other specified disorders of prostate; N41.4 Granulomatous prostatitis; Z87.442 Personal history of urinary calculi; N26.1 Atrophy of kidney (terminal); Z90.49 Acquired absence of other specified parts of digestive tract; Z87.891 Personal history of nicotine dependence
CPT/HCPCS: 52000; 55700; J1580

== ENCOUNTER 2025-03-19 08:29 | Outpatient (RCR) | payer OTHER, SELFPAY | END 2025-03-25 23:59 | disposition home or self-care (01) | LOC: HEMC 08:29 | PROVIDERS: PCP Internal Medicine; Visit Provider Internal Medicine Hematology & Oncology | DX: C67.9 Malignant neoplasm of bladder, unspecified (principal); Z90.49 Acquired absence of other specified parts of digestive tract; Z87.891 Personal history of nicotine dependence; D72.819 Decreased white blood cell count, unspecified; R97.20 Elevated prostate specific antigen [PSA] | CPT/HCPCS: G0463 ==

== ENCOUNTER 2025-03-22 14:57 | Outpatient (OUT) | payer OTHER, SELFPAY | END 2025-03-22 14:58 | disposition home or self-care (01) | PROVIDERS: PCP Internal Medicine; Visit Provider Urology | DX: R97.20 Elevated prostate specific antigen [PSA] (principal) | CPT/HCPCS: 36415; 84153 ==

== ENCOUNTER 2025-04-05 09:24 | Outpatient (OUT) | payer OTHER, SELFPAY ==
--- OUTSIDE RECORDS SUMMARY | 2025-02-05 11:00 | XMS_ITS ---
Author Organization [facility] [place] Address [address] [place] [address] Care Team Providers Care Uc Architect Name Role Phone Ricky JARA, Parth Primary Care Provider Unavailab Caroline Fu Unavailable [phone] REASON FOR VISIT New PT Hem Encounters Encounter Location Date Provider Diagnosis [facility] Oncology [address] [place] [id number] 02/05/2025 Caroline Andrade Plan Of Treatment Next Appt Details Provider Name:Caroline Andrade , 04/16/2025 01:45:00 PM, [address] [place] [address], [phone], Progress Notes * DALTON See SDOB:[birth year] (59 yo M)Acc No.[id number]:02/05/2025 UNLOCKED PROGRESS NOTE Progress Notes Patient: See BOOTHE Provider: Jason Andrade M.D. :1965 A ge:59 Y S ex:Male Date:02/05/2025 Address:[address] [place] [address] [address], [place], [id number] Pcp:Parth García MD Subjective: * Chief Complaints: * 1 . New PT Hem. * Medical History: Objective: * Vitals: Assessment: Plan: * Treatment: * * Electronic signature of Abisai Andrade MD, [id number] on 04/05/2025 at 07:32 AM EDT Sign off status: Pending Visit Status: C ANC (Cancelled) * Provider: Jason Andrade M.D. Date: 0 02/05/2025 Generated for Roberto champion/Dread/Leonie on: 0 04/05/2025 07:32 AM EDT
--- OUTSIDE RECORDS SUMMARY | 2025-03-19 11:00 | XMS_ITS ---
Author Organization [facility] in [place] Address [address] [place] [address] Care Team Providers Care Automatic Lump Making Machine Tender Name Role Phone Ricky JARA, Parth Primary Care Provider Unavailab Caroline Fu Unavailable [phone] REASON FOR VISIT New PT Hem Encounters Encounter Location Date Provider Diagnosis [facility] Oncology [address] [place] [phone] 03/19/2025 Caroline Andrade Plan Of Treatment Next Appt Details Provider Name:Caroline Andrade , 04/16/2025 01:45:00 PM, [address] [place] [address], [phone], Progress Notes * DALTON See SDOB:[birth year] (59 yo M)Acc No.[id number]:03/19/2025 UNLOCKED PROGRESS NOTE Progress Notes Patient: See BOOTHE Provider: Jason Andrade M.D. :1965 A ge:59 Y S ex:Male Date:03/19/2025 Address:[address] [place] [address] [address], [place], [id number] Pcp:Parth García MD Subjective: * Chief Complaints: * 1 . New PT Hem. * Medical History: Objective: * Vitals: Assessment: Plan: * Treatment: * * Electronic signature of Abisai Andrade MD, [id number] on 04/05/2025 at 07:32 AM EDT Sign off status: Pending Visit Status: C ONFSMS (Voice) * Provider: Jason Andrade M.D. Date: 0 03/19/2025 Generated for Roberto champion/Dread/Leonie on: 0 04/05/2025 07:32 AM EDT
--- OUTSIDE RECORDS SUMMARY | 2025-03-22 09:15 | XMS_ITS | Encounter Summary ---
Author Organization [facility] Address [address] [facility] [place] [address] Care Team Providers Care Director Advanced Name Role Phone Unavailable Primary Care Provider Unavailabl e Reason for Visit * Reason Comments Knee Pain Encounter Details Date Type Department Care Team (Late st Contact Info) Description 03/22/2025 9:15 AM EDT Office Visit [facility] [address] [facility] [address] [place] [phone] Parth García MD [address] [facility] [address] [place] [address] Pes anserinus bursitis of right knee (Primary Dx); Unspecified cirrhosis of liver (HCC); Malignant neoplasm of bladder, unspecified (HCC) Social History Tobacco Use Types Packs/Day Years Used Date Smoking Tobacco: Former Cigarettes 1 18.5 2 007 - 03/22/2005 Smokeless Tobacco: Never Tobacco Cessation:Counseling Given: Not Answered B1300 Health Literacy Answer Date Recor ded How often do you need to hav e someone help you when you read instructions, pamphlets, or other written material from your doctor or pharmacy? Never 03/21/2025 Humiliation, Afraid, Rape, and Kick questionnair e Answer Date Recorded Within the last year, have y ou been afraid of your partner or ex-partner? No 03/21/2025 Within the last year, have y ou been humiliated or emotionally abused in other ways by your partner or ex-partner? No Within the last year, have y ou been kicked, hit, slapped, or otherwise physically hurt by your partner or ex-partner? No 03/21/2025 Within the last year, have y ou been raped or forced to have any kind of sexual activity by your partner or ex-partner? No 03/21/2025 Social Connection and Isolat ion Panel [NHANES] Answer Date Recorded In a typical week, how many times do you talk on the phone with family, friends, or neighbors? More than three times a week 03/21/2025 How often do you get togethe r with friends or relatives? Twice a week 03/21/2025 How often do you attend chur or hoahaoism services? Patient declined 03/21/2025 Do you belong to any clubs o r organizations such as nondenominational groups, unions, fraternal or athletic groups, or school groups? Yes 03/21/2025 How often do you attend meet ings of the clubs or organizations you belong to? More than 4 times per year 03/21/2025 Are you , , di vorced, , never , or living with a partner? 03/21/2025 AUDIT-C Answer Date Recorded Q1: How often do you have a drink containing alcohol? Never 03/21/2025 Q2: How many drinks containi ng alcohol do you have on a typical day when you are drinking? Patient does not drink Q3: How often do you have si x or more drinks on one occasion? Never 03/21/2025 Overall Financial Resource Strain (CARDIA) Answe r Date Recorded How hard is it for you to pa y for the very basics like food, housing, medical care, and heating? Not very hard 03/21/2025 PHQ-2 Answer Date Recorded Patient Health Questionnaire-2 Score 0 03/22/2025 [facility] - Occupational Stress Questionnaire Answer Date Recorded Do you feel stress - tense, restless, nervous, or anxious, or unable to sleep at night because your mind is troubled all the time - these days? To some extent 03/21/2025 Exercise Vital Sign Answer Date Recorde d On average, how many days pe r week do you engage in moderate to strenuous exercise (like a brisk walk)? 4 days 03/21/2025 On average, how many minutes do you engage in exercise at this level? 20 min 03/21/2025 Hunger Vital Sign Answer Date Recorded Within the past 12 months, y ou worried that your food would run out before you got the money to buy more. Never true 03/21/20 25 Within the past 12 months, t he food you bought just didn't last and you didn't have money to get more. Never true 03/21/2025 PRAPARE - Transportation Answer Date Re corded In the past 12 months, has l ack of transportation kept you from medical appointments or from getting medications? No 02/25 In the past 12 months, has l ack of transportation kept you from meetings, work, or from getting things needed for daily living? No 03/21/2025 Housing Stability Vital Sign Answer Gilbert e Recorded In the last 12 months, was t here a time when you were not able to pay the mortgage or rent on time? No 03/21/2025 In the past 12 months, how m any times have you moved where you were living? 0 03/21/2025 At any time in the past 12 m [facility], were you homeless or living in a [place] facility (including now)? No 03/21/2025 Sex and Gender Information Value Date Recorded Sex Assigned at Not on file Legal Sex Male 6:46 PM EDT Gender Identity Not on file Sexual Orientation Not on file documented as of this encounter Last Filed Vital Signs Vital Sign Reading Time Taken Comments Blood Pressure 130/70 03/22/2025 9:16 AM EDT Pulse 77 03/22/2025 9:16 AM EDT Temperature - - Respiratory Rate - - Oxygen Saturation 97% 03/22/2025 9:16 AM EDT Inhaled Oxygen Concentration - - Weight 59.9 kg (132 lb) 03/22/2025 9:16 AM EDT Height 180.3 cm (5' 11 ) 03/22/2025 9:16 AM EDT Body Mass Index 18.41 03/22/2025 9:16 AM EDT documented in this encounter Functional Status * Over the past 2 weeks, how often have you been bothered by any of the following problems? Question Answer Date of Assessment Author Little interest or pleasure in doing things Not at all 03/22/2025 9:23 AM EDT Luz Sandoval LP N Feeling down, depressed, or hopeless Not at all 03/22/2025 9:23 AM EDT Luz Sandoval LP N Patient Health Questionnaire -2 Score 0 03/22/2025 9:23 AM EDT Luz Sandoval LP N documented as of this encounter Progress Notes * Parth García MD - 03/22/2025 9:15 AM EDT Images from the original note were not included. Subjective Patient ID: See Rosenberg is a 59 y.o. male who presents for Knee Pain. Knee Pain Patient presents with knee pain involving the right knee. Onset of the symptoms was several years ago. Inciting event: none known. Current symptoms include giving out, pain , stiffness, and swelling.Pain is aggravated by any weight bearing, going up and down stairs, standing, and walking. Patient has had prior knee problems. Treatment to date: OTC analgesics which are somewhat effective. Knee Pain Current Outpatient Medications on File Prior to Visit Medication Sig Dispense Refill alfuzosin ER (Uroxatral) 10 MG 24 hr tablet Take 10 mg by mouth Daily No current facility-administered medications on file prior to visit. I have reviewed and reconciled the history and medication list with the patient today. No Known Allergies Family History Problem Relation Name Age of Onset Cancer Mother Cancer Father History reviewed. No pertinent past medical history. Past Surgical History: Procedure Laterality Date CHOLECYSTECTOMY CYSTOSCOPY PROSTATE BIOPSY TONSILLECTOMY Visit Vitals Ht 5' 11 BMI 18.97 kg/m?? BSA 1.76 m?? Review of Systems Objective Physical Exam Musculoskeletal: Right knee: No swelling, deformity, effusion or erythema. Tenderness present. Comments: Pain in right knee at pes ancerna Assessment/Plan Diagnoses and all orders for this visit: Pes anserinus bursitis of right knee - Voltaren Gel OTC tid. RTC 10 days if not better Unspecified cirrhosis of liver (HCC) Malignant neoplasm of bladder, unspecified (HCC) No follow-ups on file. documented in this encounter Plan of Treatment Upcoming Encounters Date Type Department Care Team (Late st Contact Info) Description 04/05/2025 11:00 AM EDT Office Visit [facility] [address] [facility] [address] [place] [phone] Brianna Kaur PA [address] [facility] [address] [place] [address] documented as of this encounter Visit Diagnoses Diagnosis Pes anserinus bursitis of right knee- Primary Unspecified cirrhosis of liver (HCC) Malignant neoplasm of bladder, unspecified (HCC) documented in this encounter
--- OUTSIDE RECORDS SUMMARY | 2025-04-05 09:27 | XMS_ITS | Encounter Summary ---
Author Organization [facility] Address [address] [place] [address] Care Team Providers Care Buyer Intern Name Role Phone Unavailable Primary Care Provider Unavailabl e Encounter Details Date Type Department Care Team (Late st Contact Info) Description 02/04/2025 Abstract [facility] [address] [place] [address] [place] [phone] Unallocated, Noms Provider, [place] [address] Social History Tobacco Use Types Packs/Day Years Used Date Smoking Tobacco: Never Assessed Sex and Gender Information Value Date Recorded Sex Assigned at Not on file Legal Sex Male 6:46 PM EDT Gender Identity Not on file Sexual Orientation Not on file documented as of this encounter Plan of Treatment Upcoming Encounters Date Type Department Care Team (Late st Contact Info) Description 04/05/2025 11:00 AM EDT Office Visit [facility] [address] [place] [address] [place] [phone] Brianna Kaur PA [address] [place] [address] [place] [address] documented as of this encounter Visit Diagnoses Not on filedocumented in this encounter
--- OUTSIDE RECORDS SUMMARY | 2025-04-05 09:27 | XMS_ITS ---
Author Organization [facility] Address [facility] [place] [id number] Care Team Providers Care Lift Builder Whole Name Role Phone Go Paulson MD Unavailable [phone] Ricky MANNING MD, Parth Cummins Primary Care Provider [phone] Natasha Grimes RN Unavailable [phone] Darwin Quinteros MD Unavailable [phone] Kimberlee Rosenberg Unavailable Unavailable Active Problems Problem Noted Date Diagnosed Date Bladder cancer 10/19/2024 Current Treatment and Therapy Plans BLADDER INSTILLATION* Plan Start Date:10/26/2024 Plan Provider:Darwin Quinteros MD Linked Problems Malignant neoplasm of urinar y bladder, unspecified site (HCC) Treatment Medications bcg vaccine for bladder irri gation Past Treatment and Therapy Plans ADULT THERAPY PLAN 1 Plan Name Start Date Discontinue Date Treatment Medications Discontinue Reason Plan Provider BLADDER INSTILLATION 10/26/2024 10/23/2024 No medications scheduled. Other Darwin Quinteros MD
--- OUTSIDE RECORDS SUMMARY | 2025-04-05 09:27 | XMS_ITS | Clinical Summary ---
Author Organization [facility] Healthcare Address [address] [place] [address] Care Team Providers Care Instrument Repairer Steam Plant Name Role Phone Unavailable Primary Care Provider Unavailabl e Allergies No known active allergies Medications alfuzosin ER (Uroxatral) 10 MG 24 hr tablet Take 10 mg by mouth Daily Active Active Problems Problem Noted Date Diagnosed Date Personal history of bladder cancer 04/05/2025 Low libido 04/05/2025 Nephrolithiasis 04/05/2025 Elevated PSA 04/05/2025 Prostate enlargement 04/05/2025 BPH with urinary obstruction 03/21/2025 Diverticulosis of colon 03/21/2025 Duplicated renal collecting system 03/21/2025 Hepatic cirrhosis 03/21/2025 Mixed hyperlipidemia 03/21/2025 Renal atrophy 03/21/2025 Resolved Problems Problem Noted Date Diagnosed Date Resolved Date Prostate nodule 04/05/2025 04/05/2025 Bladder cancer 10/19/2024 04/05/2025 Cholecystitis with cholelithiasis 05/16/2019 04/05/2025 Encounters Date Type Department Care Team Description 04/01/2025 Telephone [facility] [address] [place] [id number] Unallocated, Jayy Lockett MD needs appt 03/28/2025 Abstract [facility] [address] [address] [place] [phone] Parth García MD 03/22/2025 9:15 AM EDT Office Visit [facility] [address] [place] [phone] Parth García MD Pes anserinus bursitis of right knee (Primary Dx); Unspecified cirrhosis of liver (HCC); Malignant neoplasm of bladder, unspecified (HCC) 03/22/2025 Clinisync Result Encounter [facility] External Department Unsolicited Provider, Generic External Data 03/22/2025 Bamboo flowsheet [facility] [address] [facility] [address] [place] [address] Parth García MD 03/22/2025 Travel 03/21/2025 Travel 03/05/2025 Abstract [facility] 112 [facility] [address] [place] [phone] Unallocated, Noms ProviderMD 02/15/2025 Clinisync Result Encounter [facility] External Department Unsolicited Provider, Generic External Data 02/04/2025 Abstract [facility] 112 [facility] [address] [place] [phone] Unallocated, Noms ProviderMD 02/01/2025 Clinisync Result Encounter [facility] External Department Unsolicited Provider, Generic External Data 01/14/2025 Abstract [facility] 112 [facility] [address] [place] [phone] Unallocated, Noms ProviderMD from Last 3 Months Immunizations Immunization Administration Dates Next Due BCG 05/25/2024,,05/11/2024,05/04/2024,04/27/2024,04/13/20 24 Family History Medical History Relation Name Comments Cancer Father Cancer Mother Relation Name Status Comments Father Mother Social History Tobacco Use Types Packs/Day Years [...] How often do you attend chur or synagogue services? Patient declined 03/21/2025 Do you belong to any clubs o r organizations such as holiness groups, unions, fraternal or athletic groups, or [...] Recorded Patient Health Questionnaire-2 Score 0 03/22/2025 [facility] of Occupat ional Health - Occupational Stress [...] any time in the past 12 m [facility], were you homeless or living in a custodial (including now)? No 03/21/2025 Sex and Gender Information Value Date Recorded Sex Assigned at Not on file Legal Sex Male 6:46 PM EDT Gender Identity Not on file Sexual Orientation Not on file Last Filed Vital Signs Vital Sign Reading [...] Mass Index 18.41 03/22/2025 9:16 AM EDT Plan of Treatment Upcoming Encounters Date Type Department Care Team (Late st Contact Info) Description 04/05/2025 11:00 AM EDT Office Visit [facility] [address] [facility] [address] [place] [phone] Brianna Kaur PA 112 [facility] 110 [place] [address] Procedures Procedure Name Priority Date/Time Associated Diagnosis Comments MHPT PSA, DIAGNOSTIC Routine 03/22/2025 2:18 PM EDT [facility] COMP METAB 1999 PNL SERPL Routine 02/15/2025 12:43 PM EDT [facility] CBC W AUTO DIFF BLD Routine 02/15/2025 12:43 PM EDT [facility] COMP METAB 1999 PNL SERPL Routine 02/01/2025 12:56 PM EDT [facility] CBC W AUTO DIFF BLD Routine 02/01/2025 12:56 PM EDT from Last 3 Months Results * (ABNORMAL) MHPT PSA, DIAGNOSTIC (03/22/2025 2:18 PM EDT) Pathologist [facility] PROSTATE SPECIFIC ANTIGEN DX 7.60(H) <=4.00 ng/mL TB 03/22/2025 2:18 PM EDT 03/22/2025 2:19 PM EDT Narrative [facility] - 03/22/2025 3:49 PM EDT us Generic External Data Provider [facility] F inal Result [facility] * (ABNORMAL) [facility] CBC W AUTO DIFF BLD (02/15/2025 12:43 PM EDT) Only the most recent of2 resultswithin the time period is included. [facility] WBC # BLD AUTO 6.22 3.70 - 11.00 k/uL [facility] RBC # BLD AUTO 4.89 4.20 - 6.00 m/uL [facility] HGB BLD-MCNC 14.6 13.0 - 17.0 g/dL [facility] HCT VFR BLD AUTO 42.3 39.0 - 51.0 % [facility] MCV RBC AUTO 86.5 80.0 - 100.0 fL [facility]CF [facility] MCH RBC QN AUTO 29.9 26.0 - 34.0 pg CCF [facility] MCHC RBC AUTO-MCNC 34.5 30.5 - 36.0 g/dL [facility] RDW RBC-RTO 11.9 11.5 - 15.0 % [facility] PLATELET # BLD AUTO 225 150 - 400 k/uL [facility] PMV BLD AUTO 9.5 9.0 - 12.7 fL [facility]CF [facility] NEUTROPHILS/LEUK NFR BLD AUTO 78.3 % [facility] NEUTROPHILS # BLD AUTO 4.87 1.45 - 7.50 k/uL [facility] LYMPHOCYTES/LEUK NFR BLD AUTO 15.6 % [facility] LYMPHOCYTES # BLD AUTO 0.97(L) 1.00 - 4.00 k/uL [facility] MONOCYTES/LEUK NFR BLD AUTO 5.6 % [facility]CF MONOCYTES # BLD AUTO 0.35 <0.87 k/uL [facility] EOSINOPHIL/LEUK NFR BLD AUTO 0.0 % [facility] CCF EOSINOPHIL # BLD AUTO <0.03 <0.46 k/uL [facility] BASOPHILS/LEUK NFR BLD AUTO 0.2 % [facility] CCF BASOPHILS # BLD AUTO <0.03 <0.11 k/uL [facility] IMM GRANULOCYTES/LEUK NFR BLD AUTO 0.3 % [facility] IMM GRANULOCYTES # BLD AUTO <0.03 <0.10 k/uL [facility] NRBC/100 WBC BLD-RTO 0.0 /100 WBC [facility]CF [facility]CF NRBC # BLD AUTO <0.01 <0.01 k/uL [facility] DIFFERENTIAL METHOD BLD Auto [facility] 02/15/2025 12:4 3 PM EDT 02/15/2025 12:43 PM EDT Narrative [facility] - 02/15/2025 12:51 PM EDT Specimen Type: BLOOD SPECIMEN Ordering Facility: [facility] Address: [address] [place] [address] Original Ordering Provider: WILY BYRNE us Generic External Data Provider RAD doty Result RAD [facility] [address] [place] [address] * (ABNORMAL) [facility] COMP METAB 1999 PNL SERPL (02/15/2025 12:43 PM EDT) Only the most recent of2 resultswithin the time period is included. [facility] PROT SERPL-MCNC 6.6 6.3 - 8.0 g/dL [facility] ALBUMIN SERPL-MCNC 4.1 3.9 - 4.9 g/dL CCF [facility] CALCIUM SERPL-MCNC 9.5 8.5 - 10.2 mg/dL CCF [facility] BILIRUB SERPL-MCNC 0.5 0.2 - 1.3 mg/dL CCF [facility] ALP SERPL-CCNC 81 38 - 113 U/L CCF [facility] AST SERPL-CCNC 11(L) 14 - 40 U/L CCF CCF ALT SERPL-CCNC 8(L) 10 - 54 U/L CCF [facility] GLUCOSE SERPL-MCNC 101(H) 74 - 99 mg/dL C[facility] Comment: The [place] Diabetes Association (ADA) provides guidance for cutoff values for fasting glucose and random glucose. The ADA defines fasting as no caloric intake for at least 8 hours. Fasting plasma glucose results between 100 to 125 mg/dL indicate increased risk for diabetes (prediabetes). Fasting plasma glucose results greater than or equal to 126 mg/dL meet the criteria for diagnosis of diabetes. In the absence of unequivocal hyperglycemia, results should be confirmed by repeat testing. In a patient with classic symptoms of hyperglycemia or hyperglycemic crisis, random plasma glucose results greater than or equal to 200 mg/dL meet the criteria for diagnosis of diabetes. Reference: Standards of Medical Care in Diabetes 2016, [place] Diabetes Association. Diabetes Care. 2016.39(Suppl 1). [facility] BUN SERPL-[facility] 14 9 - 24 mg/dL [facility] CREAT SERPL-MCNC 0.99 0.73 - 1.22 mg/dL C[facility] SODIUM SERPL-SCNC 143 136 - 144 mmol/L CCF [facility] POTASSIUM SERPL-SCNC 4.2 3.7 - 5.1 mmol/L CCF [facility]CF CHLORIDE SERPL-SCNC 104 98 - 107 mmol/L CCF [facility] CO2 SERPL-SCNC 26 22 - 30 mmol/L CCF [facility]CF ANION GAP SERPL-SCNC 13 8 - 15 mmol/L CCF [facility] CREATININE + EGFR PNL SERPLBLD 88 >=60 mL/min/1.7 3m??? [facility] Comment:Estimated Glomerular Filtration Rate (eGFR) is calculated using the 2020 CKD-EPI creatinine equation. This equation utilizes serum creatinine, sex, and age as parameters. The creatinine assay has traceable calibration to isotope dilution- mass spectrometry. Refer to KDIGO guidelines for clinical interpretation. In patients with unstable renal function, e.g. those with acute kidney injury, the eGFR may not accurately reflect actual GFR. 02/15/2025 12:4 3 PM EDT 02/15/2025 12:43 PM EDT Narrative [facility] - 02/15/2025 1:35 PM EDT Specimen Type: BLOOD SPECIMEN Ordering Facility: [facility] Address: [address] [place] [address] Original Ordering Provider: WILY BYRNE us Generic External Data Provider RAD F inalesli Result [facility] [address] [place] [address] from Last 3 Months Insurance [employer]
--- OUTSIDE RECORDS SUMMARY | 2025-04-05 09:27 | XMS_ITS | Encounter Summary ---
Author Organization [facility] Address [address] [place] [address] Care Team Providers Care Marketing Effectiveness Manager Name Role Phone Unavailable Primary Care Provider Unavailabl e Reason for Visit * Reason Onset Date Comments needs appt 04/01/2025 Encounter Details Date Type Department Care Team (Late st Contact Info) Description 04/01/2025 Telephone [facility] [address] [place] [address] Unallocated, Noms Provider, [address] [place] [address] needs appt Social History Tobacco Use Types Packs/Day Years Used Date Smoking Tobacco: Former Cigarettes 1 18.5 2 007 - 03/22/2005 Smokeless Tobacco: Never B1300 Health Literacy Answer Date Recor ded [...] 03/21/2025 How often do you attend chur ch or nondenominational services? Patient declined 03/21/2025 Do you belong to any clubs o r organizations such as zoroastrian groups, unions, fraternal or athletic groups, or [...] Recorded Patient Health Questionnaire-2 Score 0 03/22/2025 [facility] of Occupat ional [facility] - Occupational Stress Questionnaire Answer Date Recorded [...] any time in the past 12 m [facility], were you homeless or living in a alf (including now)? No 03/21/2025 Sex and Gender Information Value Date Recorded Sex Assigned at Not on file Legal Sex Male 6:46 PM EDT Gender Identity Not on file Sexual Orientation Not on file documented as of this encounter Miscellaneous Notes * Telephone Encounter - Kasandra Smith - 04/01/2025 2:45 PM EDT Patient was just seen and was told that if his knee does not feel better after a week or so to callback. The patient said it does not feel any better at all and wondered where he would like to go from here. documented in this encounter Plan of Treatment Upcoming Encounters Date Type Department Care Team (Late st Contact Info) Description 04/05/2025 11:00 AM EDT Office Visit [facility] [address] [facility] [address] [place] [address] Brianna Kaur PA [address] [facility] 110 [place] [address] documented as of this encounter Visit Diagnoses Not on filedocumented in this encounter
--- OUTSIDE RECORDS SUMMARY | 2025-04-05 09:27 | XMS_ITS | Encounter Summary ---
Author Organization [facility] Address [address] [place] [address] Care Team Providers Care Accounts Receivable Analyst Name Role Phone Unavailable Primary Care Provider Unavailabl e Encounter Details Date Type Department Care Team (Late st Contact Info) Description 02/17/2024 Clinisync Result Encounter [facility] External Department Unsolicited Provider, Generic External Data Social History Tobacco Use Types Packs/Day Years [...] EDT Office Visit [facility] [address] [facility] 110 [place] [address] Brianna Kaur PA 112 [facility] 110 [place] [address] documented as of this encounter Procedures Procedure Name Priority Date/Time Associated Diagnosis Comments XR CHEST 2V 02/17/2024 11:14 AM EDT ALL CBC WITH AUTO DIFF Routine 02/17/2024 9:25 AM EDT documented in this encounter Results * XR CHEST 2V (02/17/2024 11:14 AM EDT) Anatomical Region Laterality Modality Other 02/17/2024 11:1 4 AM EDT Narrative 02/17/2024 11:16 [place] [address] XRay Report Signed Patient: SEE HOFFMAN MR#: [id number] : 1965 Acct:[id number] Age/Sex: 58 / M ADM Date: 02/17/24 Loc: [facility] Attending Dr: Jarad Valdivia M.D. Ordering Physician: Jarad Valdivia M.D. Date of Service: 02/17/24 Procedure(s): XR chest 2V Accession Number(s): [id number] cc: KINA MACIEL ; Jarad Valdivia M.D. [place] [address] Patient Name: SEE HOFFMAN MRN: [id number] date: 1965 Sex: M Assigned Patient Location: [facility] Current Patient Location: [facility] Accession/Order Number: [id number] Exam Date: 02/17/2024 09:28 Report Date: 02/17/2024 11:14 At the request of: JARAD VALDIVIA Procedure: XR chest 2V EXAMINATION: XR chest 2V HISTORY: Preop exam COMPARISON: No relevant comparison available. FINDINGS: LUNGS: Hyperexpanded lungs. No appreciable infiltrates or mass. VASCULATURE: No increased pulmonary vasculature. PLEURA: No pneumothorax, effusion, or pleural thickening. CARDIAC: No cardiomegaly or cardiac silhouette abnormality. MEDIASTINUM: No visible mass or adenopathy. BONES: Mild kyphosis. No fracture or visible bone lesion. OTHER: Negative. XR/XR chest 2V IMPRESSION: 1. No acute cardiopulmonary process. Electronically authenticated by: THOM AGUSTIN Date: 02/17/2024 11:14 Dictated By: Thom Agustin M.D. Signed By: 02/17/24 1116 DD/ 1114 TD/TT: Zipper Measurer: Procedure Note Radiology, Radiologist, - 02/17/2024 The [place] [id number] XRay Report Signed Patient: SEE HOFFMAN SMR#: [id number] : 1965Acct:[id number] Age/Sex: 58 / MADM Date: 02/17/24 Loc: [facility] Attending Dr: Jarad Valdivia M.D. Ordering Physician: Jarad Valdivia M.D. Date of Service: 02/17/24 Procedure(s): XR chest 2V Accession Number(s): [id number] cc: KINA MACIEL ; Jarad Valdivia M.D. [place] [address] Patient Name: SEE HOFFMAN MRN: [facility]:[id number] date: 1965 Sex: M Assigned Patient Location: [facility] Current Patient Location: [facility] Accession/Order Number: [id number] Exam Date: 02/17/2024 09:28 Report Date: 02/17/2024 11:14 At the request of: JARAD VALDIVIA Procedure: XR chest 2V EXAMINATION: XR chest 2V HISTORY: Preop exam COMPARISON: No relevant comparison available. FINDINGS: LUNGS: Hyperexpanded lungs. No appreciable infiltrates or mass. VASCULATURE: No increased pulmonary vasculature. PLEURA: No pneumothorax, effusion, or pleural thickening. CARDIAC: No cardiomegaly or cardiac silhouette abnormality. MEDIASTINUM: No visible mass or adenopathy. BONES: Mild kyphosis. No fracture or visible bone lesion. OTHER: Negative. XR/XR chest 2V IMPRESSION: 1. No acute cardiopulmonary process. Electronically authenticated by: THOM AGUSTIN Date: 02/17/2024 11:14 Dictated By: Thom Agustin M.D. Signed By:02/17/24 1116 DD/ 1114 TD/TT: Zipper Measurer: Generic External Data Provider [facility] IMAGING Final Result * (ABNORMAL) ALL CBC WITH AUTO DIFF (02/17/2024 9:25 AM EDT) TBH WBC 3.8(L) 4.0 - 11.0 10 3/uL TBH TBH RBC 4.77 4.70 - 6.10 10 6/uL TBH TBH HGB 14.4 14.0 - 18.0 g/dL TBH TBH HCT 43.4 42.0 - 54.0 % TBH TBH MCV 91.0 80.0 - 94.0 fL TBH TBH MCH 30.2 25.9 - 34.0 pg TBH TBH MCHC 33.2 29.9 - 35.2 g/dL TBH TBH RDW 12.5 11.0 - 15.0 % TBH TBH PLT 173 150 - 450 10 3/uL TBH TBH MPV 9.6 9.5 - 13.5 fL TBH NEUTROPHILS PERCENT AUTO 66.6 43.0 - 75.0 % TBH LYMPHOCYTES PERCENT AUTO 20.8 20.5 - 60.0 % TBH MONOCYTES PERCENT AUTO 12.0 1.7 - 12.0 % TBH TBH EO % 0.0(L) 0.9 - 7.0 % TBH BASOPHILS PERCENT AUTO 0.3 0.2 - 2.0 % TBH IMMATURE GRANULOCYTES PCT AUTO 0.3 0.0 - 0.5 % TBH NEUTROPHILS ABSOLUTE AUTO 2.5 1.4 - 6.5 10 3/uL TBH LYMPHOCYTES ABSOLUTE AUTO 0.8(L) 1.2 - 3.8 10 3/uL TBH MONOCYTES ABSOLUTE AUTO 0.5 0.3 - 0.8 10 3/uL TBH TBH EO # 0.0 0.0 - 0.7 10 3/uL TBH BASOPHILS ABSOLUTE AUTO 0.0 0.0 - 0.1 10 3/uL TBH IMMATURE GRANULOCYTES ABS AUTO 0.01 0.00 - 0.03 10 3/uL TBH 02/17/2024 9:25 AM EDT 02/17/2024 11:45 AM EDT Narrative [facility] - 02/17/2024 11:58 AM EDT us Generic External Data Provider [facility] F inal Result [facility]NC TB documented in this encounter Visit Diagnoses Not on filedocumented in this encounter
--- OUTSIDE RECORDS SUMMARY | 2025-04-05 09:27 | XMS_ITS | Encounter Summary ---
Author Organization [facility] Address [address] [facility] [place] [address] Care Team Providers Care Hardwood Sawyer Name Role Phone Unavailable Primary Care Provider Unavailabl e Encounter Details Date Type Department Care Team (Late st Contact Info) Description 03/22/2025 Bamboo flowsheet [facility] [address] [place] [address] [place] [phone] Parth García MD [address] [place] [address] [place], [place] [id number] Social History Tobacco Use Types Packs/Day Years [...] often do you attend chur ch or orthodoxy services? Patient declined 03/21/2025 Do you belong to any clubs o r organizations such as judaism groups, unions, fraternal or athletic groups, or [...] Recorded Patient Health Questionnaire-2 Score 0 03/22/2025 [facility] of Occupat ional Health - Occupational Stress [...] any time in the past 12 m [facility], were you homeless or living in a assisted (including now)? No 03/21/2025 Sex and Gender Information Value Date Recorded Sex Assigned at Not on file Legal Sex Male 6:46 PM EDT Gender Identity Not on file Sexual Orientation Not on file documented as of this encounter Plan of Treatment Upcoming Encounters Date Type Department Care Team (Late st Contact Info) Description 04/05/2025 11:00 AM EDT Office Visit [facility] [address] [facility] [address] [place] [phone] Brianna Kaur PA [address] [facility] 110 [place] [address] documented as of this encounter Visit Diagnoses Not on filedocumented in this encounter
--- OUTSIDE RECORDS SUMMARY | 2025-04-05 09:27 | XMS_ITS | Clinical Summary ---
Author Organization [facility] Address [address] [place] [address] Care Team Providers Care Retort Or Condenser Press Operator Name Role Phone Parth García MD Primary Care Provider [phone] Allergies No known active allergies Medications No known medications Active Problems Problem Noted Date Diagnosed Date Cholecystitis with cholelithiasis 05/16/2019 Family History Relation Name Status Comments Child 1 Step-Child Alive Child 2 Step-Child Alive Child 3 Step-Child Alive Father Maternal Grandfather Maternal Grandmother Mother Alive Paternal Grandfather Paternal Grandmother Sister 1 Alive Sister 2 Alive Sister 3 Alive Social History Tobacco Use Types Packs/Day Years Used Date Smoking Tobacco: Former Cigarettes Smokeless Tobacco: Never Alcohol Use Standard Drinks/Week Comments Yes 0 (1 standard drink = 0.6 oz pur e alcohol) social Sex and Gender Information Value Date Recorded Sex Assigned at Not on file Legal Sex Male 10:54 AM EST Gender Identity Not on file Sexual Orientation Not on file Last Filed Vital Signs Vital Sign Reading Time Taken Comments Blood Pressure 138/85 05/22/2019 2:28 PM EDT Pulse 90 05/22/2019 2:28 PM EDT Temperature 36.2 C (97.2 F) 05/16/2019 11:15 AM EDT Respiratory Rate 18 05/22/2019 2:28 PM EDT Oxygen Saturation 98% 05/16/2019 11:50 AM EDT Inhaled Oxygen Concentration - - Weight 56.2 kg (124 lb) 05/22/2019 2:28 PM EDT Height 177.8 cm (5' 10 ) 05/22/2019 2:28 PM EDT Body Mass Index 17.79 05/22/2019 2:28 PM EDT Plan of Treatment Not on file Insurance [employer] Advance Directives * Full Code (Latest Code Status on File) Date Activated Date Inactivated Comments 05/16/2019 10:02 AM 05/16/2019 2:14 PM * Full Code Date Activated Date Inactivated Comments 05/16/2019 6:22 AM 05/16/2019 10:02 AM Care Teams Retort Or Condenser Press Operator Relationship Specialty Start Date End Date Parth García MD PCP - General Internal Medicine 04/28/19
--- OUTSIDE RECORDS SUMMARY | 2025-04-05 09:27 | XMS_ITS | Encounter Summary ---
Author Organization [facility] Address [address] [place] [address] Care Team Providers Care Signal And Communications Maintainer Name Role Phone Unavailable Primary Care Provider Unavailabl e Encounter Details Date Type Department Care Team (Late st Contact Info) Description 12/31/2024 Abstract [facility] [address] [place] [address] [place] [phone] Unallocated, Noms Provider, [place] [address] Social History Tobacco Use Types Packs/Day Years [...] CI FM [address] [place] [address] [place] [phone] Brianna Kaur PA [address] [place] [address] [place] [address] documented as of this encounter Visit Diagnoses Not on filedocumented in this encounter
--- OUTSIDE RECORDS SUMMARY | 2025-04-05 09:27 | XMS_ITS | Encounter Summary ---
Author Organization [facility] Address [address] [place] [address] Care Team Providers Care Extract Mixer Name Role Phone Unavailable Primary Care Provider Unavailabl e Encounter Details Date Type Department Care Team (Late st Contact Info) Description 03/05/2025 Abstract [facility] [address] [place] [address] [place] [address] Unallocated, Noms Provider, [place] [address] Social History Tobacco Use Types Packs/Day Years [...] CI FM [address] [place] [address] [place] [address] Brianna Kaur PA [address] [place] [address] [place] [address] documented as of this encounter Visit Diagnoses Not on filedocumented in this encounter
--- OUTSIDE RECORDS SUMMARY | 2025-04-05 09:27 | XMS_ITS | Clinical Summary ---
Author Organization [facility] Address [facility] [place] [id number] Care Team Providers Care Aviation Electrician Name Role Phone Go Paulson MD Unavailable [phone] Ricky MANNING MD, Parth Cummins Primary Care Provider Natasha Grimes RN Unavailable [phone] Darwin Quinteros MD Unavailable [phone] Kimberlee Rosenberg Unavailable Unavailable Allergies No known active allergies Medications alfuzosin SR (UROXATRAL) 10 mg 24 hr tablet Take 10 mg by mouth once daily. Active Active Problems Problem Noted Date Diagnosed Date Bladder cancer 10/19/2024 Encounters Date Type Department Care Team Description 02/22/2025 1:00 PM EDT Infusion Center Hematology/Oncology [address] [place] [address] [place] [address] Malignant neoplasm of urinary bladder, unspecified site (HCC) (Primary Dx) 02/20/2025 Orders Only Hematology/Oncology [address] [place] [address] [place] [address] Darwin Quinteros MD Malignant neoplasm of urinary bladder, unspecified site (HCC); Dysuria 02/15/2025 1:30 PM EDT Infusion Center Hematology/Oncology [address] [place] [address] [place] [address] Malignant neoplasm of urinary bladder, unspecified site (HCC) (Primary Dx) 02/15/2025 1:00 PM EDT Visit (SP) Office Hematology/Oncology [address] [place] [address] [place] [address] Darwin Quinteros MD Malignant neoplasm of urinary bladder, unspecified site (HCC) (Primary Dx) 02/13/2025 Telephone Hematology/Oncology [address] [place] [address] [place] [address] Darwin Quinteros MD Lab Orders 02/08/2025 1:00 PM EDT Infusion Center Hematology/Oncology [address] [place] [address] [place] [address] Malignant neoplasm of urinary bladder, unspecified site (HCC) (Primary Dx) 02/08/2025 Telephone Hematology/Oncology [address] [place] [address] [place] [address] Yaima Sinclair RN Patient Update 02/01/2025 2:00 PM EDT Nurse Visit Hematology/Oncology [address] [place] [address] [address] [place], [place] [id number] Rosie Clarke Nurse Kai Malignant neoplasm of urinary bladder, unspecified site (HCC) (Primary Dx) 02/01/2025 1:00 PM EDT Infusion Center Hematology/Oncology [address] [place] [address] [place] [address] Malignant neoplasm of urinary bladder, unspecified site (HCC) (Primary Dx) 02/01/2025 1:00 PM EDT Visit (SP) Office Hematology/Oncology [address] [place] [address] [place] [address] Darwin Quinteros MD Malignant neoplasm of urinary bladder, unspecified site (HCC) (Primary Dx) 02/01/2025 Travel 01/29/2025 Telephone Hematology/Oncology [address] [place] [address] [place] [address] Darwin Quinteros MD Lab Orders from Last 3 Months Family History Medical History Relation Comments Breast Cancer Mother Cervical Cancer Mother Breast Cancer Sister Cervical Cancer Sister Relation Status Comments Mother Sister Social History Tobacco Use Types Packs/Day Years Used Date Smoking Tobacco: Former Cigarettes Smokeless Tobacco: Current Tobacco Cessation:Ready to Q uit: Not Asked; Counseling Given: Not Answered Alcohol Use Standard Drinks/Week Comments Never 0 (1 standard drink = 0.6 oz pur e alcohol) Area Deprivation Index Answer Date Calos rded National Score (1-100), lower number is lower ri sk 80 10/19/2024 State Score (1-10), lower number is lower risk 7 10/19/2024 Data from: https://www.neighborhoodatlas.[facility].edu/. Last address used for calculation [address] [address] 10/19/2024 Sex and Gender Information Value Date Recorded Sex Assigned at Not on file Legal Sex Male 8:35 AM EST Gender Identity Not on file Sexual Orientation Not on file Last Filed Vital Signs Vital Sign Reading Time Taken Comments Blood Pressure 113/73 02/22/2025 1:18 PM EDT Pulse 75 02/22/2025 1:18 PM EDT Temperature 36.7 C (98 F) 02/15/2025 12:54 PM EDT Respiratory Rate 16 02/22/2025 1:18 PM EDT Oxygen Saturation 99% 02/22/2025 1:18 PM EDT Inhaled Oxygen Concentration - - Weight 60.1 kg (132 lb 7.9 oz) 02/15/2025 12:54 PM EDT Height 175.4 cm (5' 9.06 ) 02/15/2025 12:54 PM E DT Body Mass Index 19.54 02/15/2025 12:54 PM EDT Plan of Treatment Upcoming Encounters Date Type Department Care Team (Latest Contact Info) Description 08/02/2025 12:45 PM EST Office Visit [facility] [address] [place] [address] [place] [address] 6 month follow up with chemotx Maintenence BCG x3 08/02/2025 1:00 PM EST Visit (SP) Office Hematology/Oncology [address] [place] [address] [place] [address] Darwin Quinteros MD [address] [place] [address] [place] [address] 6 month follow up with chemotx Maintenence BCG x3 08/02/2025 1:30 PM EST Infusion Center Hematology/Oncology [address] [place] [address] [place] [address] 6 month follow up with chemotx Maintenence BCG x3 08/09/2025 1:00 PM EST Infusion Center Hematology/Oncology [address] [place] [address] [place] [address] 6 month follow up with chemotx Maintenence BCG x3 08/16/2025 1:00 PM [facility] Hematology/Oncology [address] [place] [address] [address] [place], [place] [address] 6 month follow up with chemotx Maintenence BCG x3 Health Maintenance Due Date Last Done Comments Anxiety Screening 1983 Depression Screening 1983 HIV Screening 1983 Hepatitis C Screening 1983 DTaP,Tdap,Td Vaccine (1 - Tdap) [address] Colonography 2010 Colonoscopy 2010 Fecal Occult Blood 2010 Sigmoidoscopy 2010 Pneumococcal Vaccine: 50+ (1 of 1 - PCV) 2015 Shingrix Vaccine (1 of 2) 2015 Covid-19 Vaccine (1 - 2023-2 5 season) 2024 Prostate Cancer Screening Discussion 09/04/2024 09/04/2019 Influenza Vaccine (#1) 2025 Cologuard (FIT-DNA) 11/28/2025 11/28/2022 Colorectal Cancer Screening 11/28/2025 Diabetes Screening 02/16/2028 02/15/2025, 0 02/01/2025, 10/26/2024, Additional history exists Procedures Procedure Name Priority Date/Time Associated Diagnosis Comments CBC + DIFF Routine 02/15/2025 12:43 PM EDT Malignant neoplasm of urinary bladder, unspecified site (HCC) Dysuria COMPREHENSIVE METABOLIC PANEL Routine 02/15/2025 12:43 PM EDT Malignant neoplasm of urinary bladder, unspecified site (HCC) Dysuria UA DIP, URINE (POC) Routine 02/01/2025 1 :34 PM EDT CBC + DIFF Routine 02/01/2025 12:56 PM EDT Malignant neoplasm of urinary bladder, unspecified site (HCC) COMPREHENSIVE METABOLIC PANEL Routine 02/01/2025 12:56 PM EDT Malignant neoplasm of urinary bladder, unspecified site (HCC) from Last 3 Months Results * (ABNORMAL) COMPREHENSIVE METABOLIC PANEL (02/15/2025 12:43 PM EDT) Only the most recent of2 resultswithin the time period is included. [facility] Protein, Total 6.6 6.3 - 8.0 g/dL 02/15/2025 1:35 PM EDT [facility] Albumin 4.1 3.9 - 4.9 g/dL 02/15/2025 1:35 PM EDT [facility] Calcium, Total 9.5 8.5 - 10.2 mg/dL 02/15/2025 1:35 PM EDT [facility] Bilirubin, Total 0.5 0.2 - 1.3 mg/dL 02/15/2025 1:35 PM EDT [facility] Alkaline Phosphatase 81 38 - 113 U/L 02/15/2025 1:35 PM EDT [facility] AST 11(L) 14 - 40 U/L 02/15/2025 1:35 PM EDT [facility] ALT 8(L) 10 - 54 U/L 02/15/2025 1:35 PM EDT [facility] Glucose 101(H) 74 - 99 mg/dL 02/15/2025 1:35 PM EDT [facility] Comment: The [place] Diabetes Association (ADA) provides guidance for cutoff [...] Standards of Medical Care in Diabetes 2016, [place] [employer] Association. Diabetes Care. 2016.39(Suppl 1). BUN 14 9 - 24 mg/dL 02/15/2025 1:35 PM EDT [facility] Creatinine 0.99 0.73 - 1.22 mg/dL 02/15/2025 1:35 PM EDT [facility] Sodium 143 136 - 144 mmol/L 02/15/2025 1:35 PM EDT [facility] Potassium 4.2 3.7 - 5.1 mmol/L 02/15/2025 1:35 PM EDT [facility] Chloride 104 98 - 107 mmol/L 02/15/2025 1:35 PM EDT [facility] CO2 26 22 - 30 mmol/L 02/15/2025 1:35 PM EDT [facility] Anion Gap 13 8 - 15 mmol/L 02/15/2025 1:35 PM EDT [facility] Estimated Glomerular Filtration Rate 88 >=60 mL/min/1. 73m 02/15/2025 1:35 PM EDT [facility] Comment:Estimated Glomerular Filtration Rate (eGFR) is calculated using the 2020 CKD-EPI creatinine equation. This equation utilizes serum creatinine, sex, and age as parameters. The creatinine assay has traceable calibration to isotope dilution- mass spectrometry. Refer to KDIGO guidelines for clinical interpretation. In patients with unstable renal function, e.g. those with acute kidney injury, the eGFR may not accurately reflect actual GFR. Blood BLOOD SPECIMEN / Unknown Venipuncture / Unknown 02/15/2025 12:43 PM EDT 02/15/2025 12:43 PM EDT us Unique Roque MARINE EXTENSION AGENT.PRIVATE DETECTIVE LABORATORY Final Re sult [facility] [address] [place] [address] * (ABNORMAL) COMPLETE BLOOD COUNT AND DIFFERENTIAL (02/15/2025 12:43 PM EDT) Only the most recent of2 resultswithin the time period is included. WBC 6.22 3.70 - 11.00 k/uL 02/15/2025 12:51 PM EDT [facility] RBC 4.89 4.20 - 6.00 m/uL 02/15/2025 12:51 PM EDT [facility] Hemoglobin 14.6 13.0 - 17.0 g/dL 02/15/2025 12:51 PM EDT [facility] Hematocrit 42.3 39.0 - 51.0 % 02/15/2025 12:51 PM EDT [facility] MCV 86.5 80.0 - 100.0 fL 02/15/2025 12:51 PM EDT [facility] MCH 29.9 26.0 - 34.0 pg 02/15/2025 12:51 PM EDT [facility] MCHC 34.5 30.5 - 36.0 g/dL 02/15/2025 12:51 PM EDT [facility] RDW-CV 11.9 11.5 - 15.0 % 02/15/2025 12:51 PM EDT [facility] Platelet Count 225 150 - 400 k/uL 02/15/2025 12:51 PM EDT [facility] MPV 9.5 9.0 - 12.7 fL 02/15/2025 12:51 PM EDT [facility] Neutrophils % 78.3 % 02/15/2025 12:51 PM EDT [facility] Abs Neut 4.87 1.45 - 7.50 k/uL 02/15/2025 12:51 PM EDT [facility] Lymphocytes % 15.6 % 02/15/2025 12:51 PM EDT [facility] Abs Lymph 0.97(L) 1.00 - 4.00 k/uL 02/15/2025 12:51 PM EDT [facility] Monocytes % 5.6 % 02/15/2025 12:51 PM EDT [facility] Abs Walton 0.35 <0.87 k/uL 02/15/2025 12:51 PM EDT [facility] Eosinophils % 0.0 % 02/15/2025 12:51 PM EDT [facility] Abs Eosin <0.03 <0.46 k/uL 02/15/2025 12:51 PM EDT [facility] Basophils % 0.2 % 02/15/2025 12:51 PM EDT [facility] Abs Baso <0.03 <0.11 k/uL 02/15/2025 12:51 PM EDT [facility] Immature Granulocytes % 0.3 % 02/15/2025 12:51 PM EDT [facility] Abs Immature Gran <0.03 <0.10 k/uL 02/15/2025 12:51 PM EDT [facility] NRBC 0.0 /100 WBC 02/15/2025 12:51 PM EDT [facility] Absolute nRBC <0.01 <0.01 k/uL 02/15/2025 12:51 PM EDT [facility] Diff Type Auto 02/15/2025 12:51 PM EDT [facility] Blood BLOOD SPECIMEN / Unknown Venipuncture / Unknown 02/15/2025 12:43 PM EDT 02/15/2025 12:43 PM EDT us Unique Roque MARINE EXTENSION AGENT.PRIVATE DETECTIVE LABORATORY Final Re sult [facility] [address] [place] [address] * UA DIP, URINE (POC) (02/01/2025 1:34 PM EDT) GLUCOSE UA (POCT) Negative Negative mg/dL [facility] BILIRUBIN UA (POCT) Negative Negative [facility] KETONE UA (POCT) Negative Negative mg/dL [facility] SPECIFIC GRAVITY UA (POCT) 1.020 1.005 - 1.030 [facility] HEMOGLOBIN/BLOOD UA (POCT) Negative Negative [facility] PH UA (POCT) 6.0 4.5 - 8.0 [facility] PROTEIN UA (POCT) Negative Negative mg/dL [facility] UROBILINOGEN UA (POCT) 0.2 Normal E.U./dL [facility] NITRITE UA (POCT) Negative Negative [facility] LEUKOCYTES UA (POCT) Negative Negative [facility] COLOR UA (POCT) Yellow [facility] CLARITY UA (POCT) Clear [facility] 02/01/2025 1:34 PM EDT Narrative [facility] POINT OF CARE - 02/01/2025 1:34 PM EDT Location:[facility], [address] [place] [address] Vickey Fields, [place], [place], [address] us Ccf Provider POC TESTING Final Result [facility] POINT OF CARE [facility] [address] [place], [place] from Last 3 Months Insurance [employer] Care Teams Aviation Electrician Relationship Specialty Start Date End Date Parth García II, MD [address] [facility] [address] [place] [id number] PCP - General Internal Medicine 10/26/24 Go Paulson MD Urology 10/12/24 Natasha Grimes, RN [address] [place] [address] Specialty Manager Community Outreach Hematology/Oncology 10/31/24 Darwin Quinteros MD [address] [place] [address] [place] [address] Physician Hematology/Oncology 10/31/24 Kimberlee Rosenberg LSW Tax Advisor 11/06/24
--- OUTSIDE RECORDS SUMMARY | 2025-04-05 09:27 | XMS_ITS | Encounter Summary ---
Author Organization [facility] Address [address] [facility] [place] [address] Care Team Providers Care Medical Underwriter Name Role Phone Unavailable Primary Care Provider Unavailabl e Encounter Details Date Type Department Care Team (Late st Contact Info) Description 05/16/2023 Abstract [facility] [address] [facility] [address] [place] [phone] Parth García MD [address] [facility] [address] [place] [address] Social History Tobacco Use Types Packs/Day Years [...] Visit [facility] [address] [facility] [address] [place] [address] Brianna Kaur PA [address] [facility] [address] [place] [address] documented as of this encounter Visit Diagnoses Not on filedocumented in this encounter
--- OUTSIDE RECORDS SUMMARY | 2025-04-05 09:27 | XMS_ITS | Patient Health Record ---
Author Organization [facility] [place] Address [address] [place] [address] Care Team Providers Care Gear Tester Name Role Phone Parth García MD Primary Care Provider Unavailab Caroline Fu Unavailable [phone] Reason For Referral No Information Encounters Encounter Location Date Provider Diagnosis [facility] [address] [place] [address] 03/19/2025 Caroline Andrade Plan Of Treatment Next Appt Details Provider Name:Caroline Andrade , 04/16/2025 01:45:00 PM, [address] [place], [address], Insurance Providers Payer Name Payer Address Payer Phone Subscriber Number Group Number Insured Name Patient Relationship to Insured Coverage Start Date Coverage End Date [employer] [place] [address] [place] [address] [id number] See Rosenberg Self - patient is the insured 3
--- OUTSIDE RECORDS SUMMARY | 2025-04-05 09:27 | XMS_ITS | Clinical Summary ---
Author Organization [employer] s [employer] Address [id number] [address] [place] [address] Care Team Providers Care Graphic Art Technician Name Role Phone Parth García MD Primary Care Provider [phone] Social History Tobacco Use Types Packs/Day Years Used Date Smoking Tobacco: Never Assessed Childcare Answer Date Recorded Childcare Unknown 03/07/2019 Employment Answer Date Recorded Employment Unknown 03/07/2019 Purpose - Life Answer Date Recorded Purpose and direction in life Unknown Sex and Gender Information Value Date Recorded Sex Assigned at Not on file Legal Sex Male 11:47 AM EDT Gender Identity Not on file Sexual Orientation Not on file Plan of Treatment Health Maintenance Due Date Last Done Comments Depression Screening 1977 Tobacco Screening 1977 Adult BMI Screening 1983 DTaP,Tdap and Td Vaccines (1 - Tdap) 1984 Zoster (Shingles) Vaccine (1 of 2) 2015 Influenza Vaccine 05/27/2025 Medical Devices Not on file Insurance [employer] Care Teams Graphic Art Technician Relationship Specialty Start Date End Date Parth García MD [address] [phone] PCP - General Internal Medicine 06/03/17
--- OUTSIDE RECORDS SUMMARY | 2025-04-05 09:27 | XMS_ITS | Encounter Summary ---
Author Organization [facility] Address [address] [place] [place] [address] Care Team Providers Care Head Setter Name Role Phone Unavailable Primary Care Provider Unavailabl e Encounter Details Date Type Department Care Team (Latest Contact Info) Description 03/22/2025 Travel Social History Tobacco Use Types Packs/Day Years [...] often do you attend chur ch or denominational services? Patient declined 03/21/2025 Do you belong to any clubs o r organizations such as yazidi groups, unions, fraternal or athletic groups, or [...] Recorded Patient Health Questionnaire-2 Score 0 03/22/2025 [facility] Occupat ional Health - [...] any time in the past [address] [facility], were you homeless or living in a care home (including now)? No 03/21/2025 Sex and Gender Information Value Date Recorded Sex Assigned at Not on file Legal Sex Male 6:46 PM EDT Gender Identity Not on file Sexual Orientation Not on file documented as of this encounter Functional Status * Over the [...] LP N documented as of this encounter Plan of Treatment Upcoming Encounters Date Type Department Care Team (Late st Contact Info) Description 04/05/2025 11:00 AM EDT Office Visit [facility] [address] [facility] [address] [place] [address] Brianna Kaur PA [address] [facility] [address] [place] [address] documented as of this encounter Visit Diagnoses Not on filedocumented in this encounter
--- OUTSIDE RECORDS SUMMARY | 2025-04-05 09:27 | XMS_ITS | Encounter Summary ---
Author Organization [facility] Address [address] [facility] [place] [address] Care Team Providers Care Box Inspector Name Role Phone Unavailable Primary Care Provider [...] Visit [facility] [address] [facility] [address] [place] [address] Brianna Kaur PA [address] [facility] [address] [place] [address] documented as of this encounter Procedures Procedure Name Priority Date/Time Associated Diagnosis Comments ECG 12-LEAD 02/17/2024 9:21 AM EDT documented in this encounter Results * ECG 12-LEAD (02/17/2024 9:21 AM EDT) Anatomical Region Laterality Modality Other 02/17/2024 9:21 AM EDT Narrative 02/17/2024 5:50 PM EDT The [address] [address] Electrocardiograph Report Signed Patient: SEE HOFFMAN MR#: [id number] : 1965 Acct:[id number] Age/Sex: 58 / M ADM Date: 02/17/24 Loc: PST Attending Dr: Go Paulson M.D. Ordering Physician: Go Paulson M.D. Date of Service: 02/17/24 Procedure(s): ECG 12 lead Accession Number(s): [id number] cc: [facility] Test Date: 2024-02-17 Pat Name: SEE HOFFMAN Department: Room: - Gender: Male Hog Man: : 1965 Requested By: KINA MACIEL Order Number: [id number] Reading MD: YURIY CAMPOS Measurements Intervals [place] Rate: 84 P: 84 [place]: 131 QRS: 80 QRSD: 88 T: 70 QT: 348 QTc: 413 Interpretive Statements SINUS RHYTHM Compared to ECG 02/11/2023 09:07:22 No significant changes Electronically Signed On 02-17-2024 17:50:19 EDT by YURIY CAMPOS Dictated By: Yuriy Campos D.O. Signed By: 02/17/24 1750 DD/ 0921 TD/TT: Hospital Technician: Procedure Note Radiology, Radiologist, - 02/17/2024 The [place] [id number] Electrocardiograph Report Signed Patient: SEE HOFFMAN SMR#: [id number] : 1965Acct:[id number] Age/Sex: 58 / MADM Date: 02/17/24 Loc: PST Attending Dr: Go Paulson M.D. Ordering Physician: Go Paulson M.D. Date of Service: 02/17/24 Procedure(s): ECG 12 lead Accession Number(s): [id number] cc: [facility] Test Date: 2024-02-17 Pat Name: SEE HOFFMAN Department: Room: - Gender: Male Hog Man: : 1965 Requested By: KINA MACIEL Order Number: [id number] Reading MD: YURIY CAMPOS Measurements Intervals [place] Rate: 84 P: 84 [place]: 131 QRS: 80 QRSD: 88 T: 70 QT: 348 QTc: 413 Interpretive Statements SINUS RHYTHM Compared to ECG 02/11/2023 09:07:22 No significant changes Electronically Signed On 02-17-2024 17:50:19 EDT by YRUIY CAMPOS Dictated By: Yuriy Campos D.O. Signed By:02/17/24 1750 DD/ 0921 TD/TT: Hospital Technician: Generic External Data Provider [facility] Final Result documented in this encounter Visit Diagnoses Not on filedocumented in this encounter
--- OUTSIDE RECORDS SUMMARY | 2025-04-05 09:27 | XMS_ITS | Encounter Summary ---
Author Organization [facility] Address [address] [facility] [place] [address] Care Team Providers Care Patient Observation Assistant Name Role Phone Unavailable Primary Care Provider Unavailabl e Encounter Details Date Type Department Care Team (Late st Contact Info) Description 03/28/2025 Abstract [facility] [address] [facility] [address] [place] [phone] Parth García MD [address] [facility] [address] [place] [address] Social History Tobacco Use Types Packs/Day Years [...] often do you attend chur ch or mormon services? Patient declined 03/21/2025 Do you belong to any clubs o r organizations such as christian groups, unions, fraternal or athletic groups, or [...] Recorded Patient Health Questionnaire-2 Score 0 03/22/2025 [facility] of Occupat ional Health - Occupational [...] any time in the past 12 m [facility], were you homeless or living in [...] 04/05/2025 11:00 AM EDT Office Visit [facility] [address] [facility] [address] [place] [address] Brianna Kaur PA [address] [facility] [address] [place] [address] documented as of this encounter Visit Diagnoses Not on filedocumented in this encounter
--- OUTSIDE RECORDS SUMMARY | 2025-04-05 09:27 | XMS_ITS | Encounter Summary ---
Author Organization [facility] Address [address] [facility] [place] [address] Care Team Providers Care Human Resources Operations Coordinator Name Role Phone Unavailable Primary Care Provider Unavailabl e Encounter Details Date Type Department Care Team (Late st Contact Info) Description 03/22/2025 Clinisync Result Encounter [facility] External Department [...] often do you attend chur ch or rastafarian services? Patient declined 03/21/2025 Do you belong to any clubs o r organizations such as pentecostal groups, unions, fraternal or athletic groups, or [...] Recorded Patient Health Questionnaire-2 Score 0 03/22/2025 [facility] - Occupational Stress Questionnaire Answer Date Recorded [...] any time in the past 12 m [facility], were you homeless or living in a correction (including now)? No 03/21/2025 Sex and Gender [...] Office Visit [facility] [address] [facility] [address] [place] [address] Brianna Kaur PA 112 [facility] [address] [place] [address] documented as of this encounter Procedures Procedure Name Priority Date/Time Associated Diagnosis Comments MHPT PSA, DIAGNOSTIC Routine 03/22/2025 2:18 PM EDT documented in this encounter Results * (ABNORMAL) MHPT PSA, DIAGNOSTIC (03/22/2025 2:18 PM EDT) PROSTATE SPECIFIC ANTIGEN DX 7.60(H) <=4.00 ng/mL [facility] 03/22/2025 2:18 PM EDT 03/22/2025 2:19 PM EDT Narrative [facility] - 03/22/2025 3:49 PM EDT us Generic External Data Provider [facility] F inal Result [facility] documented in this encounter Visit Diagnoses Not on filedocumented in this encounter
--- OUTSIDE RECORDS SUMMARY | 2025-04-05 09:27 | XMS_ITS | Encounter Summary ---
Author Organization [facility] Address [address] [place] [address] Care Team Providers Care Construction Producer Name Role Phone Unavailable Primary Care Provider Unavailabl e Encounter Details Date Type Department Care Team (Late st Contact Info) Description 01/14/2025 Abstract [facility] [address] [place] [phone] Unallocated, Noms Provider, [place] [address] Social History Tobacco Use Types Packs/Day Years [...] CI FM [address] [place] [phone] Brianna Kaur PA [address] [place] [address] documented as of this encounter Visit Diagnoses Not on filedocumented in this encounter
--- OUTSIDE RECORDS SUMMARY | 2025-04-05 09:27 | XMS_ITS | Encounter Summary ---
Author Organization [facility] Address [address] [facility] [place] [address] Care Team Providers Care Butting Saw Operator Name Role Phone Unavailable Primary Care Provider Unavailabl e Encounter Details Date Type Department Care Team (Late st Contact Info) Description 02/16/2023 Orders Only [facility] [address] [facility] 110 [place] [phone] Parth García MD [address] [facility] 110 [place] [address] Social History Tobacco Use Types Packs/Day Years [...] Visit [facility] [address] [facility] 110 [place] [address] Brianna Kuar PA [address] [facility] 110 [place] [address] documented as of this encounter Procedures Procedure Name Priority Date/Time Associated Diagnosis Comments ELECTROCARDIOGRAM REPORT Routine 023 4:23 PM EDT documented in this encounter Results * Electrocardiogram Report (02/11/2023 4:23 PM EDT) us Parth García MD IN CLINIC/BEDSIDE ORDERABLES F inal Result documented in this encounter Visit Diagnoses Not on filedocumented in this encounter
== END 2025-04-05 09:25 | disposition home or self-care (01) ==
LOC: LAB 09:26
PROVIDERS: PCP Internal Medicine; Visit Provider Urology
DX: R68.82 Decreased libido (principal)
CPT/HCPCS: 36415; 84403

== ENCOUNTER 2025-04-16 07:56 | Outpatient (RCR) | payer OTHER, SELFPAY ==
--- NOTE | 2025-04-12 14:14 | PC.NURSE ---
1100 Arrival ambulatory for education regarding Keytruda. Reviewed medication, use, side effects to monitor for, as well as general principles of immunotherapy. Discussed drug, dose, frequency etc. Also discussed nutrition, bowel and bladder health, s/s to report. etc. patient verbalizes understanding. 30 mins of eduction 1:1.
[2025-04-16 13:30] VITALS: BP 134/80; PULSE 80; TEMP 37; O2SAT 97
[2025-04-16 13:42] LABS: Hematocrit 41.7 % (42.0-54.0); Hemoglobin 14.4 g/dL (14.0-18.0); Immature Granulocytes Abs Auto 0.01 10^3/uL (0.00-0.03); Immature Granulocytes Pct Auto 0.2 % (0.0-0.5); Lymphocytes Absolute Auto 1.0 10^3/uL (1.2-3.8); Mean Corpuscular HGB Conc 34.5 g/dL (29.9-35.2); Mean Corpuscular Hemoglobin 30.3 pg (25.9-34.0); Mean Corpuscular Volume 87.8 fL (80.0-94.0); Platelet Count 166 10^3/uL (150-450); Red Blood Count 4.75 10^6/uL (4.70-6.10); White Blood Count 4.5 10^3/uL (4.0-11.0)
[2025-04-16 13:56] LABS: Alanine Aminotransferase 22 U/L (16-63); Albumin Globulin Ratio 1.1; Albumin Level 3.6 g/dL (3.4-5.0); Alkaline Phosphatase 73 U/L (46-116); Anion Gap 14.1; Aspartate Amino Transferase 13 U/L (15-37); Blood Urea Nitrogen 19.0 mg/dL (7.0-18.0); Calcium 8.8 mg/dL (8.5-10.1); Carbon Dioxide 26.7 mmol/L (21.0-32.0); Chloride 106 mmol/L (98-107); Estimated GFR (African America >60 (>=60 mL/min/1.73m^2); Estimated GFR (Non-African Ame >60 (>=60 mL/min/1.73m^2); Globulin 3.3 g/dL; Glucose 152 mg/dL (74-106); Potassium 3.8 mmol/L (3.5-5.1); Sodium 143 mmol/L (136-145); Total Protein 6.9 g/dL (6.4-8.2)
[2025-04-16 14:04] LABS: Magnesium 1.9 mg/dL (1.8-2.4); TSH W/ REFLEX FT4 1.715 uIU/mL (0.358-3.740)
[2025-04-16] MEDS: 0.9 % SODIUM CHLORIDE 250 ML 10 ML IV (14:44)
--- NOTE | 2025-04-16 14:46 | PC.NURSE ---
1430: Dr. Andrade to chairside for MD visit. 1444: IV Keytruda initiated at this time. Pt. denies needs.
== END 2025-04-25 23:59 | disposition home or self-care (01) ==
LOC: HEMC 07:56
PROVIDERS: PCP Internal Medicine; Visit Provider Internal Medicine Hematology & Oncology
DX: Z51.12 Encounter for antineoplastic immunotherapy (principal); C67.8 Malignant neoplasm of overlapping sites of bladder; D72.819 Decreased white blood cell count, unspecified; Z80.0 Family history of malignant neoplasm of digestive organs; Z90.49 Acquired absence of other specified parts of digestive tract; Z87.891 Personal history of nicotine dependence; Z84.81 Family history of carrier of genetic disease; Z15.09 Genetic susceptibility to other malignant neoplasm
CPT/HCPCS: 36415; 80053; 83735; 84443; 85025; 96413; 99211; G0463; J9271

== ENCOUNTER 2025-05-10 06:48 | Outpatient (OUT) | payer OTHER, SELFPAY ==
--- OUTSIDE RECORDS SUMMARY | 2025-04-16 11:00 | XMS_ITS ---
Author Organization [facility] [place] Address [address] [place] [address] Care Team Providers Care Acquisitions Logistics Analyst Name Role Phone Parth García MD Primary Care Provider Unavailab Caroline Fu Unavailable [phone] REASON FOR VISIT MD Encounters Encounter Location Date Provider Diagnosis [facility] [address] [place] [phone] 04/16/2025 Carolinewayne Andrade Plan Of Treatment Next Appt Details Provider Name:Caroline Andrade , 05/10/2025 09:30:00 AM, [address] [place] [address], [phone], Provider Name:Caroline Andrade , 05/28/2025 03:15:00 PM, [address] [place] [address], [phone], Provider Name:Caroline Andrade , 05/31/2025 09:30:00 AM, [address] [place] [address], [phone], Progress Notes * See ROSENBERG SDOB:[birth year] (59 yo M)Acc No.[id number]:04/16/2025 UNLOCKED PROGRESS NOTE Progress Notes Patient: See BOOTHE Provider: Jason Andrade M.D. :1965 A ge:59 Y S ex:Male Date:04/16/2025 Address:[address] [place] [address] [address] , [place], [id number] Pcp:Parth García MD Subjective: * Chief Complaints: * 1 . MD. * Medical History: Objective: * Vitals: Assessment: Plan: * Treatment: * * Electronic signature of Abisai Andrade MD, [id number] on 05/10/2025 at 06:50 AM EDT Sign off status: Pending Visit Status: C ANC (Cancelled) * Provider: Jason Andrade M.D. Date: 0 04/16/2025 Generated for Roberto champion/Dread/eTransmitting on: 0 05/10/2025 06:50 AM EDT
--- OUTSIDE RECORDS SUMMARY | 2025-04-16 11:15 | XMS_ITS ---
Author Organization [facility] [place] Address [address] [place] [address] Care Team Providers Care Machine Maintenance Name Role Phone Parth García MD Primary Care Provider Unavailab Caroline Fu Unavailable [phone] REASON FOR VISIT Pembrolizumab (Keytruda) Encounters Encounter Location Date Provider Diagnosis [facility] [address] [place] [phone] 04/16/2025 Caroline Andrade Plan Of Treatment Next Appt Details Provider Name:Caroline Andrade , 05/10/2025 09:30:00 AM, [address] [place] [address], [phone], Provider Name:Caroline Andrade , 05/28/2025 03:15:00 PM, [address] [place] [address], [phone], Provider Name:Caroline Andrade , 05/31/2025 09:30:00 AM, [address] [place] [address], [phone], Progress Notes * See ROSENBERG SDOB:[birth year] (59 yo M)Acc No.[id number]:04/16/2025 UNLOCKED PROGRESS NOTE Progress Note Patient: See BOOTHE Provider: Jason Andrade M.D. :1965 A ge:59 Y S ex:Male Date:04/16/2025 Address:[address] [place] [address] [address] , [id number] Pcp:Parth García MD Subjective: * Chief Complaints: * 1 . Pembrolizumab (Keytruda). * Medical History: Objective: * Vitals: Assessment: Plan: * Treatment: * * Electronic signature of Abisai Andrade MD, [id number] on 05/10/2025 at 06:51 AM EDT Sign off status: Pending Visit Status: C ANC (Cancelled) * Provider: Jason Andrade M.D. Date: 0 04/16/2025 Generated for Roberto champion/Dread/eTmichaelsmitting on: 0 05/10/2025 06:51 AM EDT
--- OUTSIDE RECORDS SUMMARY | 2025-04-26 10:30 | XMS_ITS | Encounter Summary ---
Author Organization [facility] Address [address] [facility] [place] [address] Care Team Providers Care Feed Mixer Helper Name Role Phone Parth García MD Primary Care Provider [phone] Reason for Referral * Imaging (Routine) - Authorized Specialty Diagnoses / Procedures Referred By Contac t Referred To Contact Radiology Diagnoses Acute internal derangement of right knee Procedures MR knee right wo IV contrast Kiran Sanchez PA [address] [place] [address] Phone: tel: fax: [facility] [address] [place] [address] Phone: tel: fax: Referral ID Status Reason Start Date Expiration Date V isits Requested Visits Authorized [id number] Authorized 04/26/2025 10/23/2025 1 1 Reason for Visit * Reason Comments Pain * Consultation (Routine) - Closed Specialty Diagnoses / Procedures Referred By Contac t Referred To Contact Orthopaedic Surgery Diagnoses Chronic pain of right knee Steve Kaur PA [address] [place] [address] Phone: tel: fax: Jr. Santiago White DO [address] [place] [address] Phone: tel: fax: Referral ID Status Reason Start Date Expiration Date V isits Requested Visits Authorized [id number] Closed Specialty Services Required 04/17/2025 10/14/2025 1 1 Encounter Details Date Type Department Care Team (Late st Contact Info) Description 04/26/2025 10:30 AM EDT Office Visit [facility] [address] [place] [address] Kiran Sanchez PA [address] [place] [address] Acute pain of right knee (Primary Dx); Acute internal derangement of right knee Social History Tobacco Use Types Packs/Day Years Used Date Smoking Tobacco: Former Cigarettes 1 18.6 2 007 - 03/22/2005 Smokeless Tobacco: Never [...] How often do you attend chur or sikh services? Patient declined 03/21/2025 Do you belong to any clubs o r organizations such as druze groups, unions, fraternal or athletic groups, or [...] Date Recorded Patient Health Questionnaire-2 Score 0 04/05/2025 [facility] - Occupational Stress Questionnaire Answer Date Recorded [...] any time in the past 12 m [facility], were you homeless or living in a halfway (including now)? No 03/21/2025 Sex and Gender Information Value Date Recorded Sex Assigned at Not on file Legal Sex Male 6:46 PM EDT Gender Identity Not on file Sexual Orientation Not on file documented as of this encounter Progress Notes * CHARLES Hernandez - 04/26/2025 10:30 AM EDT Images from the original note were not included. 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 Inspection Leg length disparity: no discrepancy Right Erythema: none Effusion: mild Edema: none Ecchymosis: none Deformity: none Alignment: normal Palpation Right Increased warmth: none Masses: none Tenderness: present Medial joint line: moderate Range of Motion Right Right knee range of motion is normal and full. Active extension: 0 Passive extension: 0 Active flexion: 120 Passive flexion: 125 Range of motion additional comments: + PAIN ON TERMINAL FLEXION AND EXTENSION Strength Right Right knee strength is normal. Extension: 5/5. Extension is affected by pain. Flexion: 5/5. Flexion is affected by pain. Instability Right Instability signs: none - stable Varus stress grade: normal Valgus stress grade: normal Anterior drawer: normal Medial Donaldo test: positive Neurovascular Right Right knee neurovascular exam is normal. Pulses - PT: normal Posterior tibial: 2+ Capillary refill: warm and well-perfused Special Signs Right Right knee special signs are normal. Patellar apprehension: none General Constitutional: appears stated age Labored breathing: no Psychiatric: normal mood and affect Neurological: alert Skin: intact Lymphadenopathy: none Orders Placed This Encounter Procedures XR knee 1 or 2 views right Reason for exam:: pain MR knee right wo IV contrast Standing Status: Future Expected Date: 04/26/2025 Expiration Date: 04/26/2026 Scheduling Instructions: MRI RT KNEE WITHOUT CONTRAST @ [facility]; PLEASE CALL PT TO SCHEDULE Reason for exam:: RT KNEE INTERNAL DERANGEMENT Procedures ICD-10-CM 1. Acute pain of right knee M25.561 Ambulatory referral to Orthopaedic Surgery XR knee 1 or 2 views right 2. Acute internal derangement of right knee M23.91 MR knee right wo IV contrast F/U Dr. White s/p MRI to discuss need for possible: R/o medial meniscus tear. , r/o OCD medial femoral condyle Surgical and non surgical tx options discussed with conservative measures reviewed. Recommend ICE/ ELEVATION, continued activity modification in interim. Pt would consider surgical intervention to possibly improve symptoms. Assessment & Plan Right knee pain. Exam concerning for internal derangement, possible medial meniscus tear, symptoms with catching, locking, severity of pain. X-rays were discussed and showed no evidence of fracture. He is agreeable to an MRI for further evaluation. I do not feel patient with tolerate therapy with PAIN. Diagnostic plan: MRI for further evaluation. Follow-up: Next scheduled visit Dr. White Questions answered in laymen terms at the bedside. The diagnosis, home exercise plan and any ongoing restrictions/ recommendations reviewed. If unable to be reached in office, I recommend evaluation at nearest Emergency Room if any symptoms worsened or new symptoms develop for requiring urgent evaluation. Visit was preformed using [employer]-drone pilot speech recognition. documented in this encounter Plan of Treatment Upcoming Encounters Date Type Department Care Team (Late st Contact Info) Description 05/17/2025 9:45 AM EDT Office Visit [facility] [address] [place] [address] Jr. Santiago White DO 112 [facility] 150 [place] [address] Scheduled Orders Name Type Priority Associated Diagnoses Orde r Schedule MR knee right wo IV contrast Imaging Routine Acute internal derangement of right knee Expected: 04/26/2025 (Approximate), Expires: 04/26/2026 documented as of this encounter Procedures Procedure Name Priority Date/Time Associated Diagnosis Comments XR KNEE 1-2 VIEWS RIGHT Routine 04/26/2025 10:31 AM EDT Acute pain of right knee documented in this encounter Results * XR knee 1 or 2 views right (04/26/2025 10:31 AM EDT) Anatomical Region Laterality Modality Lower Extremities, Knee Right Radiogra [facility] Imaging Narrative 04/27/2025 8:14 AM EDT Imaging Result: AP and Lateral weight bearing: Bones: The bony structures of the knee, including the distal femur, proximal tibia, and patella, appear normal. Stable alignment. There are no fractures, dislocations, or bony lesions noted. Joint Spaces: The joint spaces are well-maintained bilaterally with minimal narrowing medially, small oval lucency medial aspect of medial femoral condyle possible OCD vs positioning Soft Tissues: The surrounding soft tissues appear normal. There is no evidence of soft tissue swelling or calcification. Impression: Normal weight-bearing knee X-ray. No acute bony process us Kiran SOTO IMG XR PROCEDURES Final Resul t documented in this encounter Visit Diagnoses Diagnosis Acute pain of right knee- Primary Acute internal derangement of right knee documented in this encounter Care Teams Feed Mixer Helper Relationship Specialty Start Date End Date Parth García MD [address] [place] [address] PCP - General Internal Medicine 04/16/25 documented as of this encounter
--- OUTSIDE RECORDS SUMMARY | 2025-04-26 10:35 | XMS_ITS | Encounter Summary ---
Author Organization [facility] Address [address] [facility] [place] [address] Care Team Providers Care Route Deliverer Name Role Phone Parth García MD Primary Care Provider [phone] Encounter Details Date Type Department Care Team (Late st Contact Info) Description 04/26/2025 10:35 AM EDT Ancillary Procedure [facility] [address] [place] [address] Social History Tobacco Use Types Packs/Day Years [...] often do you attend chur ch or druze services? Patient declined 03/21/2025 Do you belong to any clubs o r organizations such as latter day groups, unions, fraternal or athletic groups, or [...] Recorded Patient Health Questionnaire-2 Score 0 04/05/2025 [facility] of Occupat ional Health - Occupational Stress [...] any time in the past 12 m [facility], were you homeless or living in a prison (including now)? No 03/21/2025 Sex and Gender Information Value Date Recorded Sex Assigned at Not on file Legal Sex Male 6:46 PM EDT Gender Identity Not on file Sexual Orientation Not on file documented as of this encounter Plan of Treatment Upcoming Encounters Date Type Department Care Team (Late st Contact Info) Description 05/17/2025 9:45 AM EDT Office Visit [facility] [address] [place] [address] Jr. Santiago White, DO [address] [address] documented as of this encounter Procedures Procedure Name Priority Date/Time Associated Diagnosis Comments XR KNEE 1-2 VIEWS RIGHT Routine 04/26/2025 10:31 AM EDT Acute pain of right knee documented in this encounter Results * XR knee 1 or 2 views right (04/26/2025 10:31 AM EDT) Anatomical Region Laterality Modality Lower Extremities, Knee Right Radiogra [facility] Imaging Narrative 04/27/2025 8:14 AM EDT [...] t documented in this encounter Visit Diagnoses Not on filedocumented in this encounter Care Teams Route Deliverer Relationship Specialty Start Date End Date Parth García MD [address] [place] [address] PCP - General Internal Medicine 04/16/25 documented as of this encounter
--- OUTSIDE RECORDS SUMMARY | 2025-05-10 05:30 | XMS_ITS ---
Author Organization [facility] [place] Address [address] [place] [address] Care Team Providers Care Insurance Examiner Name Role Phone Parth García MD Primary Care Provider Unavailab Caroline Fu Unavailable [phone] REASON FOR VISIT Pembrolizumab (Keytruda) Encounters Encounter Location Date Provider Diagnosis [facility] [address] [place] [phone] 05/10/2025 Caroline Andrade Plan Of Treatment Next Appt Details Provider Name:Caroline Andrade , 05/10/2025 09:30:00 AM, [address] [place] [address], [phone], Provider Name:Caroline Andrade , 05/28/2025 03:15:00 PM, [address] [place] [address], [phone], Provider Name:Caroline Andrade , 05/31/2025 09:30:00 AM, [address] [place] [address], [phone], Progress Notes * See ROSENBERG SDOB:[birth year] (59 yo M)Acc No.[id number]:05/10/2025 UNLOCKED PROGRESS NOTE Progress Note Patient: See BOOTHE Provider: Jason Andrade M.D. :1965 A ge:59 Y S ex:Male Date:05/10/2025 Address:[address] [place] [address] [address] , [place], [id number] Pcp:Parth García MD Subjective: * Chief Complaints: * 1 . Pembrolizumab (Keytruda). * Medical History: Objective: * Vitals: Assessment: Plan: * Treatment: * * Electronic signature of Abisai Andrade MD, [id number] on 05/10/2025 at 06:50 AM EDT Sign off status: Pending Visit Status: P EN (Pending) * Provider: Jason Andrade M.D. Date: 0 05/10/2025 Generated for Roberto champion/Dread/Trevaitting on: 05/10/2025 06:50 AM EDT
--- OUTSIDE RECORDS SUMMARY | 2025-05-10 06:50 | XMS_ITS | Encounter Summary ---
Author Organization [facility] Address [address] [facility] [place] [address] Care Team Providers Care Olericulture Professor Name Role Phone Parth García MD Primary Care Provider [phone] Encounter Details Date Type Department Care Team [...] 05/17/2025 9:45 AM EDT Office Visit [facility] [address] [facility] [place] [address] Jr. Santiago White, DO 112 [facility] 150 [place] [address] documented as of this encounter Procedures Procedure Name Priority Date/Time Associated Diagnosis Comments ECG 12-LEAD 02/17/2024 9:21 AM EDT documented in this encounter Results * ECG 12-LEAD (02/17/2024 9:21 AM EDT) Anatomical Region Laterality Modality Other 02/17/2024 9:21 AM EDT Narrative 02/17/2024 5:50 [place] [address] Electrocardiograph Report Signed Patient: SEE HOFFMAN MR#: [id number] : 1965 Acct:[id number] Age/Sex: 58 / M ADM Date: 02/17/24 Loc: PST Attending Dr: Go Paulson M.D. Ordering Physician: Go Paulson M.D. Date of Service: 02/17/24 Procedure(s): ECG 12 lead Accession Number(s): [id number] cc: [facility] Test Date: 2024-02-17 Pat Name: SEE HOFFMAN Department: Room: - Gender: Male Emergency Veterinary Technician: : 1965 Requested By: PARTH GARCÍA Order Number: [id number] Reading MD: YURIY CAMPOS Measurements Intervals [place] Rate: 84 P: 84 CO: 131 QRS: 80 QRSD: 88 T: 70 QT: 348 QTc: 413 Interpretive Statements SINUS RHYTHM Compared to ECG 02/11/2023 09:07:22 No significant changes Electronically Signed On 02-17-2024 17:50:19 EDT by YURIY CAMPOS Dictated By: Yuriy Campos D.O. Signed By: 02/17/24 1750 DD/ 0921 TD/TT: Superannuation Funds Manager: Procedure Note Radiology, Radiologist, MD - 02/17/2024 [place] [address] Electrocardiograph Report Signed Patient: SEE HOFFMAN SMR#: [id number] : 1965Acct:[id number] Age/Sex: 58 / MADM Date: 02/17/24 Loc: PST Attending Dr: Go Paulson M.D. Ordering Physician: Go Paulson M.D. Date of Service: 02/17/24 Procedure(s): ECG 12 lead Accession Number(s): [id number] cc: [facility] Test Date: 2024-02-17 Pat Name: SEE HOFFMAN Department: Room: - Gender: Male Emergency Veterinary Technician: : 1965 Requested By: PARTH GARCÍA Order Number: [id number] Reading MD: YURIY CAMPOS Measurements Intervals [place] Rate: 84 P: 84 CO: 131 QRS: 80 QRSD: 88 T: 70 QT: 348 QTc: 413 Interpretive Statements SINUS RHYTHM Compared to ECG 02/11/2023 09:07:22 No significant changes Electronically Signed On 02-17-2024 17:50:19 EDT by YURIY CAMPOS Dictated By: Yuriy Campos D.O. Signed By:02/17/24 175 DD/ 0 TD/TT: Superannuation Funds Manager: Generic External Data Provider [facility] Final Result documented in this encounter Visit Diagnoses Not on filedocumented in this encounter Care Teams Olericulture Professor Relationship Specialty Start Date End Date Parth García MD [address] [address] PCP - General Internal Medicine 04/16/25 documented as of this encounter
--- OUTSIDE RECORDS SUMMARY | 2025-05-10 06:50 | XMS_ITS | Clinical Summary ---
Author Organization [facility] Healthcare Address [address] [facility] [place] [address] Care Team Providers Care Breaking Machine Operator Name Role Phone Parth García MD Primary Care Provider [phone] Allergies No known active allergies Medications alfuzosin [...] Encounters Date Type Department Care Team Description 04/26/2025 10:35 AM EDT Ancillary Procedure [facility] [address] [place] [address] 04/26/2025 10:30 AM EDT Office Visit [facility] [place] [address] Kiran Sanchez PA Acute pain of right knee (Primary Dx); Acute internal derangement of right knee 04/26/2025 Bamboo flowsheet [facility] [address] [place] [address] Kiran Sanchez PA 04/26/2025 Travel 04/16/2025 Clinisync Result Encounter [facility] External Department Unsolicited Provider, Generic External Data 04/15/2025 Telephone [facility] [address] [place] [address] Unallocated, Noms MD Cathryn 04/08/2025 Abstract [facility] [address] [place] [address] Unallocated, Noms MD Cathryn 04/05/2025 11:00 AM EDT Office Visit [facility] [address] [place] [address] Brianna Kaur PA Chronic pain of right knee (Primary Dx) 04/05/2025 Clinisync Result Encounter NOMS External Department Unsolicited Provider, Generic External Data 04/05/2025 Bamboo flowsheet [facility] [address] [place] [address] Brianna Kaur PA 04/05/2025 Travel 04/01/2025 Telephone [facility] [address] [place] [address] Unallocated, Noms MD Cathryn needs appt 03/28/2025 Abstract [facility] [address] [place] [address] Parth García MD 03/22/2025 9:15 AM EDT Office Visit [facility] [address] [place] [address] Parth García MD Pes anserinus bursitis of right knee (Primary Dx); Unspecified cirrhosis of liver (HCC); Malignant neoplasm of bladder, unspecified (HCC) 03/22/2025 Clinisync Result Encounter NOMS External Department Unsolicited Provider, Generic External Data 03/22/2025 [facility]amboo flow[facility] [address] [place] [address] Parth García MD 03/22/2025 Travel 03/21/2025 Travel 03/05/2025 Abstract [facility] [facility] [address] [facility] [address] [place] [address] Unallocated, Nommarion Lockett MD 02/15/2025 Clinisync Result Encounter NOMS External Department Unsolicited Provider, Generic External Data from Last 3 Months Immunizations Immunization Administration [...] often do you attend chur ch or sikh services? Patient declined 03/21/2025 Do you belong to any clubs o r organizations such as mosque groups, unions, fraternal or athletic groups, or [...] Recorded Patient Health Questionnaire-2 Score 0 04/05/2025 [facility] - Occupational [...] any time in the past 12 m [facility], were you homeless or living in a jail (including now)? No 03/21/2025 Sex and Gender Information Value Date Recorded Sex Assigned at Not on file Legal Sex Male 6:46 PM EDT Gender Identity Not on file Sexual Orientation Not on file Last Filed Vital Signs Vital Sign Reading Time Taken Comments Blood Pressure 108/74 04/05/2025 10:55 AM EDT Pulse 84 04/05/2025 10:55 AM EDT Temperature - - Respiratory Rate 16 04/05/2025 10:5 5 AM EDT Oxygen Saturation 96% 04/05/2025 10: 55 AM EDT Inhaled Oxygen Concentration - - Weight 60.7 kg (133 lb 12.8 oz) 025 10:55 AM EDT Height 180.3 cm (5' 11 ) 04/05/2025 10: 55 AM EDT Body Mass Index 18.66 04/05/2025 10:55 AM EDT Plan of Treatment Upcoming Encounters Date Type Department Care Team (Late st Contact Info) Description 05/17/2025 9:45 AM EDT Office Visit [facility] [address] [facility] [place] [address] Jr. Santiago White, DO [address] [facility] [address] [place] [address] Health Maintenance Due Date Last Done Comments CT Colonography 1965 Colonoscopy 1965 FIT 1965 FOBT 1965 Sigmoidoscopy 1965 Influenza Vaccine (#1) 2025 Colorectal Cancer Screening 11/28/2025 FIT-DNA 11/28/2025 11/28/2022, 11/28/2022 Procedures Procedure Name Priority Date/Time Associated Diagnosis Comments XR KNEE 1-2 VIEWS RIGHT Routine 04/26/20 10:31 AM EDT Acute pain of right knee TSH W/REFLEX T4 Routine 04/16/2025 1:30 PM EDT ALL MAGNESIUM Routine 04/16/2025 1:30 PM EDT [facility] CMP (CMP) (FOR REMOTE [facility] USE) Routine 04/16/2025 1:30 PM EDT ALL CBC WITH AUTO DIFF Routine 1:30 PM EDT [place] ARTHROCENTESIS ASPIR&/INJ MAJOR JT/BURSA W/O US Routine 04/05/2025 11:14 AM EDT Chronic pain of right knee ALL TESTOSTERONE Routine 04/05/2025 9:54 AM EDT MHPT PSA, DIAGNOSTIC Routine 03/22/2025 2:18 PM EDT [facility] COMP METAB 2000 PNL SERPL Routine 02/15/2025 12:43 PM EDT [facility] CBC W AUTO DIFF BLD Routine 02/16/20 12:43 PM EDT LAB COLOGUARD COLON CANCER SCREEN Routine 11/28/2022 from Last 3 Months or Most Recently Relevant to Health Maintenance Results * XR knee 1 or 2 views right (04/26/2025 10:31 AM EDT) Anatomical Region Laterality Modality Lower Extremities, Knee Right [facility] Narrative 04/27/2025 8:14 AM EDT Imaging [...] SOTO IMG XR PROCEDURES Final Resul t * TSH W/REFLEX T4 (04/16/2025 1:30 PM EDT) TSH 1.715 0.358 - 3.740 uIU/mL [facility]H 04/16/2025 1:30 PM EDT 04/16/2025 1:36 PM EDT Narrative CLINISYNC - 04/16/2025 2:06 PM EDT Generic External Data Provider LAB BLOOD ORDERAB LES Final Result [facility]IN[facility]NC [facility] * (ABNORMAL) [facility] CMP (CMP) (FOR REMOTE [facility] USE) (04/16/2025 1:30 PM EDT) SODIUM 143 136 - 145 mmol/L TBH POTASSIUM 3.8 3.5 - 5.1 mmol/L TBH CHLORIDE 106 98 - 107 mmol/L TBH CARBON DIOXIDE 26.7 21.0 - 32.0 mmol/L TBH ANION GAP 14.1 TBH GLUCOSE 152(H) 74 - 106 mg/dL TBH BLOOD UREA NITROGEN 19.0(H) 7.0 - 18.0 mg/dL TB[facility] CREATININE 1.01 0.70 - 1.30 mg/dL TBH TBH EGFR-AF GIBRALTARIAN >60 >=60 mL/min/1. 73m 2 TBH TBH EGFR-NON AF GIBRALTARIAN >60 >=60 mL/min/1. 73m 2 TBH BUN CREATININE RATIO 18.8 TBH CALCIUM 8.8 8.5 - 10.1 mg/dL TBH BILIRUBIN TOTAL 0.4 0.2 - 1.0 mg/dL TBH ASPARTATE AMINO TRANSFERASE 13(L) 15 - 37 U/L TB[facility] ALANINE AMINOTRANSFERASE 22 16 - 63 U/L TBH ALKALINE PHOSPHATASE 73 46 - 116 U/L TB[facility] TOTAL PROTEIN 6.9 6.4 - 8.2 g/dL TBH ALBUMIN LEVEL 3.6 3.4 - 5.0 g/dL TB[facility] GLOBULIN 3.3 g/dL TBH ALBUMIN GLOBULIN RATIO 1.1 TB[facility] 04/16/2025 1:30 PM EDT 04/16/2025 1:36 PM EDT Narrative CLINISYNC - 04/16/2025 2:06 PM EDT Generic External Data Provider CLINISYNC F inal Result [facility] [facility] * ALL MAGNESIUM (04/16/2025 1:30 PM EDT) MAGNESIUM 1.9 1.8 - 2.4 mg/dL TB 04/16/2025 1:30 PM EDT 04/16/2025 1:36 PM EDT Narrative CLINISYNC - 04/16/2025 2:06 PM EDT Generic External Data Provider CLINISYNC F inal Result Performing Organization Address City/[facility]/ZIP Co de Phone Number CLINISYNC TB * (ABNORMAL) ALL CBC WITH AUTO DIFF (04/16/2025 1:30 PM EDT) TBH WBC 4.5 4.0 - 11.0 10 3/uL TBH TBH RBC 4.75 4.70 - 6.10 10 6/uL TBH TB HGB 14.4 14.0 - 18.0 g/dL TB TB HCT 41.7(L) 42.0 - 54.0 % TBH TBH MCV 87.8 80.0 - 94.0 fL TBH TBH MCH 30.3 25.9 - 34.0 pg TBH TBH MCHC 34.5 29.9 - 35.2 g/dL TBH TBH RDW 12.1 11.0 - 15.0 % TBH TBH PLT 166 150 - 450 10 3/uL TBH TBH MPV 9.8 9.5 - 13.5 fL TBH NEUTROPHILS PERCENT AUTO 70.6 43.0 - 75.0 % TBH LYMPHOCYTES PERCENT AUTO 22.6 20.5 - 60.0 % TBH MONOCYTES PERCENT AUTO 5.5 1.7 - 12.0 % TBH TBH EO % 0.4(L) 0.9 - 7.0 % TBH BASOPHILS PERCENT AUTO 0.7 0.2 - 2.0 % TBH IMMATURE GRANULOCYTES PCT AUTO 0.2 0.0 - 0.5 % TBH NEUTROPHILS ABSOLUTE AUTO 3.2 1.4 - 6.5 10 3/uL TBH LYMPHOCYTES ABSOLUTE AUTO 1.0(L) 1.2 - 3.8 10 3/uL TBH MONOCYTES ABSOLUTE AUTO 0.3 0.3 - 0.8 10 3/uL TBH TBH EO # 0.0 0.0 - 0.7 10 3/uL TBH BASOPHILS ABSOLUTE AUTO 0.0 0.0 - 0.1 10 3/uL TBH IMMATURE GRANULOCYTES ABS AUTO 0.01 0.00 - 0.03 10 3/uL TBH 04/16/2025 1:30 PM EDT 04/16/2025 1:36 PM EDT Essie LEROY - 04/16/2025 1:44 PM EDT us Generic External Data Provider CLINISYNC F inal Result [facility] * [place] ARTHROCENTESIS ASPIR&/INJ MAJOR JT/BURSA W/O US (04/05/2025 11:14 AM EDT) Narrative Brianna Kaur PA - 04/05/2025 11:14 AM EDT CHARLES Page 04/05/2025 11:19 AM Arthrocentesis Date/Time: 04/05/2025 11:14 AM Performed by: CHARLES Page Authorized by: CHARLES Page Consent: Consent obtained: Verbal Consent given by: Patient Risks, benefits, and alternatives were discussed: yes Risks discussed: Bleeding, infection and pain Alternatives discussed: No treatment and alternative treatment Location: Location: Knee Knee: R knee Anesthesia: Anesthesia method: Local infiltration (0.5 mL) Local anesthetic: Bupivacaine 0.5% w/o epi Procedure details: Needle gauge: 21 G. Ultrasound guidance: no Approach: Lateral Steroid injected: yes (Kenalog 40 mg) Specimen collected: no Post-procedure details: Dressing: Adhesive bandage Procedure completion: Tolerated well, no immediate complications Brianna SOTO IN CLINIC/BEDSIDE ORDERABLES F inal Result * ALL TESTOSTERONE (04/05/2025 9:54 AM EDT) Pathologist [facility] TESTOSTERONE 906 264 - 916 ng/dL [facility] [facility] Comment: Adult male reference interval is based on a population of healthy nonobese males (BMI <30) between 19 and 39 years old. Glory et.al. JCEM 2017,102;0103-6202. PMID: [id number]. Performed at: [address] [id number] Histopathology Technician: Landon Austin PhD, Phone: [phone] 04/05/2025 9:54 AM EDT 04/05/2025 9:55 AM EDT Narrative CLINISYNC - 04/06/2025 4:09 AM EDT Generic External Data Provider CLINISYNC F inal Result Performing Organization Address [facility] Co de Phone Number [facility] * (ABNORMAL) MHPT PSA, DIAGNOSTIC (03/22/2025 2:18 PM EDT) Pathologist [facility] PROSTATE SPECIFIC ANTIGEN DX 7.60(H) <=4.00 ng/mL [facility] 03/22/2025 2:18 PM EDT 03/22/2025 2:19 PM EDT Narrative CLINISYNC - 03/22/2025 3:49 PM EDT Generic External Data Provider CLINISYNC F inal Result Performing Organization Address [facility] Co de Phone Number [facility] * (ABNORMAL) [facility] CBC W AUTO DIFF BLD (02/15/2025 12:43 PM EDT) [facility] WBC # BLD AUTO 6.22 3.70 [...] PM EDT 02/15/2025 12:43 PM EDT Narrative RAD - 02/15/2025 12:51 PM EDT Specimen Type: BLOOD SPECIMEN Ordering Facility: [facility] Address: [address] [place] [address] Original Ordering Provider: WILY BYRNE us Generic External Data Provider CLINISYNC F inal Result [facility]IN[facility] [address] [place] [address] * (ABNORMAL) [facility] COMP METAB 2000 PNL SERPL (02/15/2025 12:43 PM EDT) [facility] PROT SERPL-MCNC 6.6 6.3 - 8.0 [...] 74 - 99 mg/dL [facility] Comment: The [place] Diabetes Association (ADA) provides guidance for cutoff [...] Standards of Medical Care in Diabetes 2016, [place] Diabetes Association. Diabetes Care. 2016.39(Suppl 1). [facility] [...] PM EDT 02/15/2025 12:43 PM EDT Narrative RAD - 02/15/2025 1:35 PM EDT Specimen Type: BLOOD SPECIMEN Ordering Facility: [facility] Address: [address] [place] [address] Original Ordering Provider: WILY BYRNE Generic External Data Provider RAD doty Result [facility] [address] [place] [address] * Cologuard?? colon cancer screening (11/28/2022) COLOGUARD RESULT REPORTABLE Negative Negative [facility] Comment: NEGATIVE TEST RESULT. A negative Cologuard result indicates a low likelihood that a colorectal cancer (CRC) or advanced adenoma (adenomatous polyps with more advanced pre-malignant features) is present. The chance that a person with a negative Cologuard test has a colorectal cancer is less than 1 in 1500 (negative predictive value >99.9%) or has an advanced adenoma is less than 5.3% (negative predictive value 94.7%). These data are based on a prospective cross-sectional study of 10,000 individuals at average risk for colorectal cancer who were screened with both Cologuard and colonoscopy. (Jj Yanez al, N Engl J Med 2014;370(14):9096-3811) The normal value (reference range) for this assay is negative. COLOGUARD RE-SCREENING RECOMMENDATION: Periodic colorectal cancer screening is an important part of preventive healthcare for asymptomatic individuals at average risk for colorectal cancer. Following a negative Cologuard result, the [place] Cancer Society and U.S. Multi-Society Task Force screening guidelines recommend a Cologuard re-screening interval of 3 years. References: [place] Cancer Society Guideline for Colorectal Cancer Screening: https://www.cancer.org/cancer/llqgc-dtgmfw-mfipfz/uxyyidqgm-wjvyvsgbq-vdsvghq/ac s-rec ommendations.html.; Edil DK, Kathleen KASPER, Maira OlivasK, Colorectal Cancer Screening: Recommendations for Physicians and Patients from the U.S. Multi-Society Task Force on Colorectal Cancer Screening , Am J Gastroenterology 2017; 112:6046-5078. TEST DESCRIPTION: Composite algorithmic analysis of stool DNA-biomarkers with hemoglobin immunoassay. Quantitative values of individual biomarkers are not reportable and are not associated with individual biomarker result reference ranges. Cologuard is intended for colorectal cancer screening of adults of either sex, 45 years or older, who are at average-risk for colorectal cancer (CRC). Cologuard has been approved for use by the U.S. FDA. The performance of Cologuard was established in a cross sectional study of average-risk adults aged 50-84. Cologuard performance in patients ages 45 to 49 years was estimated by sub-group analysis of near-age groups. Colonoscopies performed for a positive result may find as the most clinically significant lesion: colorectal cancer [4.0%], advanced adenoma (including sessile serrated polyps greater than or equal to 1cm diameter) [20%] or non- advanced adenoma [31%]; or no colorectal neoplasia [45%]. These estimates are derived from a prospective cross-sectional screening study of 10,000 individuals at average risk for colorectal cancer who were screened with both Cologuard and colonoscopy. (Imperiale T. et al, N Engl J Med 2014;370(14):1439-7963.) Cologuard may produce a false negative or false positive result (no colorectal cancer or precancerous polyp present at colonoscopy follow up). A negative Cologuard test result does not guarantee the absence of CRC or advanced adenoma (pre-cancer). The current Cologuard screening interval is every 3 years. ([place] Cancer Society and U.S. Multi-Society Task Force). Cologuard performance data in a 10,000 patient pivotal study using colonoscopy as the reference method can be accessed at the following location: www.SynapCell.com/results. Additional description of the Cologuard test process, warnings and precautions can be found at www.cologuard.com. 11/28/2022 Parth García MD LAB MOLECULAR DIAGNOSTICS HAIDER SNOW Final Result [facility] from Last 3 Months or Most Recently Relevant to Health Maintenance Insurance [employer] Care Teams Breaking Machine Operator Relationship Specialty Start Date End Date Parth García MD [address] [facility] [[email or web address]] [address] [place] [address] PCP - General Internal Medicine 04/16/25
--- OUTSIDE RECORDS SUMMARY | 2025-05-10 06:50 | XMS_ITS | Encounter Summary ---
Author Organization [facility] Address [address] [facility] [place] [address] Care Team Providers Care Copy Worker Name Role Phone Parth García MD Primary Care Provider [phone] Encounter Details Date Type Department Care Team (Late st Contact Info) Description 04/26/2025 Bamboo flowsheet [facility] [address] [place] [address] Kiran Sanchez PA [address] [place] [address] Social History Tobacco Use Types [...] any clubs o r organizations such as congregational groups, unions, fraternal or athletic groups, or [...] Recorded Patient Health Questionnaire-2 Score 0 04/05/2025 [facility] Answer [...] any [facility] in the [facility] were you homeless or living in a skilled nursing (including now)? No 03/21/2025 Sex and Gender Information Value Date Recorded Sex Assigned at Not on file Legal Sex Male 6:46 PM EDT Gender Identity Not on file Sexual Orientation Not on file documented as of this encounter Plan of Treatment Upcoming Encounters Date Type Department Care Team (Late st Contact Info) Description 05/17/2025 9:45 AM EDT Office Visit [facility] [address] [facility] [place] [address] Jr. Santiago White DO [address] [facility] [address] [place] [address] documented as of this encounter Visit Diagnoses Not on filedocumented in this encounter Care Teams Copy Worker Relationship Specialty Start Date End Date Parth García MD [address] [facility] [address] [place] [address] PCP - General Internal Medicine 04/16/25 documented as of this encounter
--- OUTSIDE RECORDS SUMMARY | 2025-05-10 06:50 | XMS_ITS | Encounter Summary ---
Author Organization [facility] Address [address] [facility] [place] [address] Care Team Providers Care Pickler Helper Name Role Phone Parth García MD Primary Care Provider [phone] Encounter Details Date Type Department Care Team (Late st Contact Info) Description 05/16/2023 Abstract [facility] [address] [place] [address] [place] [address] Parth García MD [address] [place] [address] Social History Tobacco Use Types Packs/Day Years [...] Description 05/17/2025 9:45 AM EDT [facility] [address] [place] [address] Jr. Santiago White DO [address] [place] [address] documented as of this encounter Visit Diagnoses Not on filedocumented in this encounter Care Teams Pickler Helper Relationship Specialty Start Date End Date Parth García MD [address] [place] [address] PCP - General Internal Medicine 04/16/25 documented as of this encounter
--- OUTSIDE RECORDS SUMMARY | 2025-05-10 06:50 | XMS_ITS | Encounter Summary ---
Author Organization [facility] Address [address] [facility] [place] [address] Care Team Providers Care Sap Business Analyst Name Role Phone Parth García MD Primary Care Provider [phone] Encounter Details Date Type Department Care Team (Late Contact Info) Description 02/16/2023 Orders Only [facility] [address] [place] [address] [place] [address] Parth García MD [address] [place] [address] [place] [address] Social History Tobacco Use Types Packs/Day Years [...] 05/17/2025 9:45 AM EDT Office Visit [facility] [address] [facility] [place] [address] Jr. Santiago White DO [address] [place] [address] [place] [address] documented as of this encounter Procedures Procedure Name Priority Date/Time Associated Diagnosis Comments ELECTROCARDIOGRAM REPORT Routine 023 4:23 PM EDT documented in this encounter Results * Electrocardiogram Report (02/11/2023 4:23 PM EDT) Parth García MD IN CLINIC/BEDSIDE ORDERABLES F inal Result documented in this encounter Visit Diagnoses Not on filedocumented in this encounter Care Teams Sap Business Analyst Relationship Specialty Start Date End Date Parth García MD [address] [facility] [address] [place] [id number] PCP - General Internal Medicine 04/16/25 documented as of this encounter
--- OUTSIDE RECORDS SUMMARY | 2025-05-10 06:50 | XMS_ITS | Clinical Summary ---
Author Organization [facility] Address [address] [facility], [address] [place] [address] Care Team Providers Care All Terrain Vehicle Racer Name Role Phone Parth García MD Primary Care Provider Allergies No known active allergies Medications No [...] 6:22 AM 05/16/2019 10:02 AM Care Teams All Terrain Vehicle Racer Relationship Specialty Start Date End Date Parth García MD PCP - General Internal Medicine 04/28/19
--- OUTSIDE RECORDS SUMMARY | 2025-05-10 06:50 | XMS_ITS | Encounter Summary ---
Author Organization [facility] Address [address] [place] [address] Care Team Providers Care Hogshead Stripper Name Role Phone Parth García MD Primary Care Provider [phone] Encounter Details Date Type Department Care Team [...] 05/17/2025 9:45 AM EDT Office Visit [facility] [address] [facility] [place] [address] Jr. Santiago White, DO [address] [facility] 150 [place] [address] documented as of this encounter Procedures Procedure Name Priority Date/Time Associated Diagnosis Comments XR CHEST 2V 02/17/2024 11:14 AM EDT ALL CBC WITH AUTO DIFF Routine 02/17/2024 9:25 AM EDT documented in this encounter Results * XR CHEST 2V (02/17/2024 11:14 AM EDT) Anatomical Region Laterality Modality Other 02/17/2024 11:1 4 AM EDT Narrative 02/17/2024 11:16 [place] [address] XRay Report Signed Patient: SEE HOFFMAN MR#: [id number] : 1965 Acct:[id number] Age/Sex: 58 / M ADM Date: 02/17/24 Loc: [facility] Attending Dr: Jarad Valdivia M.D. Ordering Physician: Jarad Valdivia M.D. Date of Service: 02/17/24 Procedure(s): XR chest 2V Accession Number(s): [id number] cc: PARTH GARCÍA ; Jarad Valdivia M.D. The [place] [address] Patient Name: SEE HOFFMAN MRN: [id number] date: 1965 Sex: M Assigned Patient Location: [facility] Current Patient Location: [facility] Accession/Order Number: [id number] Exam Date: 02/17/2024 09:28 Report Date: 02/17/2024 [...] Signed By: 02/17/24 1116 DD/ 1114 TD/TT: Materials Clerk: Procedure Note Radiology, Radiologist, - 02/17/2024 The [place] [id number] XRay Report Signed Patient: SEE HOFFMAN SMR#: [id number] : 1965Acct:[id number] Age/Sex: 58 / MADM Date: 02/17/24 Loc: [facility] Attending Dr: Jarad Valdivia M.D. Ordering Physician: Jarad Valdivia M.D. Date of Service: 02/17/24 Procedure(s): XR chest 2V Accession Number(s): [id number] cc: PARTH GARCÍA ; Jarad Valdivia M.D. [place] [id number] Patient Name: SEE HOFFMAN MRN: [id number] date: 1965 Sex: M Assigned Patient Location: [facility] Current Patient Location: [facility] Accession/Order Number: [id number] Exam Date: 02/17/2024 09:28 Report Date: 02/17/2024 [...] M.D. Signed By:02/17/24 1116 DD/ 1114 TD/TT: Materials Clerk: us Generic External Data Provider [facility] IMAGING Final [...] Data Provider CLINISYNC F inal Result [facility] documented in this encounter Visit Diagnoses Not on filedocumented in this encounter Care Teams Hogshead Stripper Relationship Specialty Start Date End Date Parth García MD [address] [facility] [address] [place] [address] PCP - General Internal Medicine 7/22/25 documented as of this encounter
--- OUTSIDE RECORDS SUMMARY | 2025-05-10 06:50 | XMS_ITS | Encounter Summary ---
Author Organization [facility] Address [address] [facility] [place] [address] Care Team Providers Care Head Setter Name Role Phone Parth García MD Primary Care Provider [phone] Encounter Details Date Type Department Care Team (Late st Contact Info) Description 03/28/2025 Abstract [facility] [address] [place] [address] [place] [id number] Parth García MD [address] [place] [address] [place] [address] Social History Tobacco Use Types Packs/Day Years [...] often do you attend chur ch or evangelical services? Patient declined 03/21/2025 Do you belong to any clubs o r organizations such as anabaptism groups, unions, fraternal or athletic groups, or [...] Recorded Patient Health Questionnaire-2 Score 0 03/22/2025 [facility] Answer Date Recorded [...] any time in the past 12 m ont, were you homeless or living in a intermediate (including now)? No 03/21/2025 Sex and Gender Information Value Date Recorded Sex Assigned at Not on file Legal Sex Male 6:46 PM EDT Gender Identity Not on file Sexual Orientation Not on file documented as of this encounter Plan of Treatment Upcoming Encounters Date Type Department Care Team (Late st Contact Info) Description 05/17/2025 9:45 AM EDT Office Visit [facility] [address] [place] [address] Jr. Santiago White DO [address] [email or web address] [address] [place] [address] documented as of this encounter Visit Diagnoses Not on filedocumented in this encounter Care Teams Head Setter Relationship Specialty Start Date End Date Parth García MD [address] [email or web address] [address] [place] [address] PCP - General Internal Medicine 04/16/25 documented as of this encounter
--- OUTSIDE RECORDS SUMMARY | 2025-05-10 06:50 | XMS_ITS | Encounter Summary ---
Author Organization [facility] Address [address] [facility] [place] [address] Care Team Providers Care Medical Receptionist Assistant Name Role Phone Parth García MD Primary Care Provider [phone] Encounter Details Date Type Department Care Team (Late Contact Info) Description 12/31/2024 Abstract [facility] [address] [place] [address] [place] [phone] Unallocated, Noms Provider, [address] [place] [address] Social History Tobacco Use Types Packs/Day Years [...] 05/17/2025 9:45 AM EDT Office Visit [facility] [address] [facility] [address] Jr. Santiago White DO [address] [place] [address] [place] [address] documented as of this encounter Visit Diagnoses Not on filedocumented in this encounter Care Teams Medical Receptionist Assistant Relationship Specialty Start Date End Date Parth García MD [address] [place] [address] [place] [address] PCP - General Internal Medicine 04/16/25 documented as of this encounter
--- OUTSIDE RECORDS SUMMARY | 2025-05-10 06:50 | XMS_ITS ---
Author Organization [facility] Address [facility] [place] [id number] Care Team Providers Care Utility Sales Representative Name Role Phone Go Paulson MD Unavailable [phone] Ricky MANNING MD, Parth Cummins Primary Care Provider [phone] Natasha Grimes RN Unavailable [phone] Darwin Quinteros MD Unavailable [phone] Kimberlee Rosenberg Unavailable Unavailable Active Problems Problem [...]
--- OUTSIDE RECORDS SUMMARY | 2025-05-10 06:50 | XMS_ITS | Encounter Summary ---
Author Organization [facility] Address [address] [facility] [place] [address] Care Team Providers Care Aircraft Instrument Engineer Name Role Phone Parth García MD Primary Care Provider [phone] Encounter Details Date Type Department Care Team (Late Contact Info) Description 03/05/2025 Abstract [facility] [address] [place] [address] [place] [phone] Unallocated, Noms Provider, [address] [place] [address] Social History Tobacco Use Types Packs/Day Years [...] 05/17/2025 9:45 AM EDT Office Visit [facility] [address] [facility] [place] [address] Jr. Santiago White DO [address] [place] [address] [place] [address] documented as of this encounter Visit Diagnoses Not on filedocumented in this encounter Care Teams Aircraft Instrument Engineer Relationship Specialty Start Date End Date Parth García MD [address] [place] [address] [place] [address] PCP - General Internal Medicine 04/16/25 documented as of this encounter
--- OUTSIDE RECORDS SUMMARY | 2025-05-10 06:50 | XMS_ITS | Encounter Summary ---
Author Organization [facility] Address [address] [place] [address] Care Team Providers Care Buckle Assembler Name Role Phone Parth García MD Primary Care Provider [phone] Encounter Details Date Type Department Care Team (Late st Contact Info) Description 04/08/2025 Abstract [facility] [address] [place] [address] [place] [phone] Unallocated, Jayy Provider, [address] [place] [address] Social History Tobacco Use Types Packs/Day Years [...] often do you attend chur ch or gnosticist services? Patient declined 03/21/2025 Do you belong to any clubs o r organizations such as rastafari groups, unions, fraternal or athletic groups, or [...] Recorded Patient Health Questionnaire-2 Score 0 04/05/2025 [facility] - Occupational Stress Questionnaire Answer Date Recorded [...] the money to buy more. Never true 06/26/20 25 Within the past 12 months, t [...] any time in the past 12 [facility], were you homeless or living in [...] 05/17/2025 9:45 AM EDT Office Visit [facility] [address] [facility] [place] [address] Jr. Santiago White DO [address] [facility] [address] [place] [address] documented as of this encounter Visit Diagnoses Not on filedocumented in this encounter Care Teams Buckle Assembler Relationship Specialty Start Date End Date Parth García MD [address] [facility] [address] [place] [address] PCP - General Internal Medicine 04/16/25 documented as of this encounter
--- OUTSIDE RECORDS SUMMARY | 2025-05-10 06:50 | XMS_ITS | Encounter Summary ---
Author Organization [facility] Address [address] [facility] [place] [address] Care Team Providers Care Equipment Operator Intermodal Yard Name Role Phone Parth García MD Primary Care Provider [phone] Encounter Details Date Type Department Care Team (Late Contact Info) Description 02/04/2025 Abstract [facility] [address] [place] [address] [place] [address] Unallocated, Noms Provider, [address] [place] [address] Social History Tobacco Use Types Packs/Day Years [...] 05/17/2025 9:45 AM EDT Office Visit [facility] [address] [facility] [address] Jr. Santiago White DO [address] [place] [address] [place] [address] documented as of this encounter Visit Diagnoses Not on filedocumented in this encounter Care Teams Equipment Operator Intermodal Yard Relationship Specialty Start Date End Date Parth García MD [address] [place] [address] [place] [address] PCP - General Internal Medicine 04/16/25 documented as of this encounter
--- OUTSIDE RECORDS SUMMARY | 2025-05-10 06:50 | XMS_ITS | Encounter Summary ---
Author Organization [facility] Address [address] [facility] [place] [address] Care Team Providers Care Cargo Broker Name Role Phone Parth García MD Primary Care Provider [phone] Encounter Details Date Type Department Care Team (Late Contact Info) Description 01/14/2025 Abstract [facility] [address] [place] [address] [place] [phone] Unallocated, Noms Provider, [address] [place] [address] Social History Tobacco Use Types Packs/Day Years [...] 05/17/2025 9:45 AM EDT Office Visit [facility] [address] [facility] [place] [address] Jr. Santiago White DO [address] [place] [address] [place] [address] documented as of this encounter Visit Diagnoses Not on filedocumented in this encounter Care Teams Cargo Broker Relationship Specialty Start Date End Date Parth García MD [address] [place] [address] [place] [address] PCP - General Internal Medicine 04/16/25 documented as of this encounter
--- OUTSIDE RECORDS SUMMARY | 2025-05-10 06:50 | XMS_ITS | Patient Health Record ---
Author Organization [facility] [place] Address [address] [place] [address] Care Team Providers Care Smog Technician Name Role Phone Parth García MD Primary Care Provider Unavailab Caroline Fu Unavailable [phone] Results Component Value Reference Range Notes CBC AUTO DIFF (Not yet revie wed by provider) Interpretation: Performing Lab: Notes/Report: [facility] , White Blood Count 4.5 4.0-11.0 10 3/uL Red Blood Count 4.75 4.70-6.10 10 6/uL Hemoglobin 14.4 14.0-18.0 g/dL Hematocrit 41.7 42.0-54.0 % Mean Corpuscular Volume 87.8 80.0-94.0 fL Mean Corpuscular Hemoglobin 30.3 25.9-34.0 pg Mean Corpuscular HGB Conc 34.5 29.9-35.2 g/dL Red Cell Distribution Width 12.1 11.0-15.0 % Platelet Count 166 150-450 10 3/uL Mean Platelet Volume 9.8 9.5-13.5 fL Neutrophils Percent Auto 70.6 43.0-75.0 % Lymphocytes Percent Auto 22.6 20.5-60.0 % Monocytes Percent Auto 5.5 1.7-12.0 % Eosinophils Percent Auto 0.4 0.9-7.0 % Basophils Percent Auto 0.7 0.2-2.0 % Immature Granulocytes Pct Auto 0.2 0.0-0.5 % Neutrophils Absolute Auto 3.2 1.4-6.5 10 3/uL Lymphocytes Absolute Auto 1.0 1.2-3.8 10 3/uL Monocytes Absolute Auto 0.3 0.3-0.8 10 3/uL Eosinophils Absolute Auto 0.0 0.0-0.7 10 3/uL Basophils Absolute Auto 0.0 0.0-0.1 10 3/uL Immature Granulocytes Abs Auto 0.01 0.00-0.03 10 3/uL Performing Lab: see note - [facility] LB TSH W/ REFLEX FT4 (Not yet r eviewed by provider) Interpretation: Performing Lab: Notes/Report: [facility] , TSH W/ REFLEX FT4 1.715 0.358-3.740 uIU/mL Performing Lab: see note - [facility] PROF 14(COMP METB) (Not yet reviewed by provider) Interpretation: Performing Lab: Notes/Report: [facility] , Sodium 143 136-145 mmol/L Potassium 3.8 3.5-5.1 mmol/L Chloride 106 98-107 mmol/L Carbon Dioxide 26.7 21.0-32.0 mmol/L Anion Gap 14.1 Glucose 152 74-106 mg/dL Blood Urea Nitrogen 19.0 7.0-18.0 mg/dL Creatinine 1.01 0.70-1.30 mg/dL Estimated GFR ( Zeina >60 >=60 mL/mi n/1.73m 2 Estimated GFR (Non- [facility] >60 >=60 mL/mi n/1.73m 2 BUN Creatinine Ratio 18.8 Calcium 8.8 8.5-10.1 mg/dL Bilirubin Total 0.4 0.2-1.0 mg/dL Aspartate Amino Transferase 13 15-37 U/L Alanine Aminotransferase 22 16-63 U/L Alkaline Phosphatase 73 46-116 U/L Total Protein 6.9 6.4-8.2 g/dL Albumin Level 3.6 3.4-5.0 g/dL Globulin 3.3 Albumin Globulin Ratio 1.1 Performing Lab: see note - [facility] LB MAGNESIUM (Not yet reviewed by provider) Interpretation: Performing Lab: Notes/Report: [facility] , Magnesium 1.9 1.8-2.4 mg/dL Performing Lab: see note - [facility] LB Reason For Referral No Information Encounters Encounter Location Date Provider Diagnosis [facility] Oncology [address] [place] [facility] [address] 04/16/2025 Caroline Lupe [facility] Oncology [address] [place] [facility] [place] [address] 03/19/2025 Caroline Lupe [facility] Oncology [address] [place] [facility] [address] 04/16/2025 Caroline Lupe Plan Of Treatment Pending Test Test Name Order Date CBC AUTO DIFF 04/16/2025 MAGNESIUM 04/16/2025 PROF 14(COMP METB) 04/16/2025 TSH W/ REFLEX FT4 04/16/2025 Next Appt Details Provider Name:Caroline Guerrerowla , 05/10/2025 09:30:00 AM, [address] [place] [address], [phone], Provider Name:Caroline Guerrerowla , 05/28/2025 03:15:00 PM, [address] [place] [address], [phone], Provider Name:Caroline Andrade , 05/31/2025 09:30:00 AM, [address] [place] [address], [phone], Insurance Providers Payer Name Payer Address Payer Phone Subscriber Number Group Number Insured Name Patient Relationship to Insured Coverage Start Date Coverage End Date AETNABEEL AVALOS [address] [place] [phone] [id number] See Rosenberg Self - patient is the insured
--- OUTSIDE RECORDS SUMMARY | 2025-05-10 06:50 | XMS_ITS | Clinical Summary ---
Author Organization [facility] Address [facility] [place] [id number] Care Team Providers Care Steam Drier Tender Name Role Phone Go Paulson MD Unavailable [phone] Ricky MANNING MD, Parth Cummins Primary Care Provider Natasha Grimes RN Unavailable [phone] Darwin Quinteros MD Unavailable [phone] Kimberlee Rosenberg Unavailable Unavailable Allergies No known active allergies Medications alfuzosin SR (UROXATRAL) 10 mg 24 hr tablet Take 10 mg by mouth once daily. Active Active Problems Problem Noted Date Diagnosed Date Bladder cancer 10/19/2024 Encounters Date Type Department Care Team Description 02/22/2025 1:00 PM EDT Infusion Center Hematology/Oncology [address] [place] [address] [place] [address] Malignant neoplasm of urinary bladder, unspecified site (HCC) (Primary Dx) 02/20/2025 Orders Only Hematology/Oncology [address] [place] [address] [place] [address] Darwin Quinteros MD Malignant neoplasm of urinary bladder, unspecified site (HCC); Dysuria 02/15/2025 1:30 PM EDT Infusion Center Hematology/Oncology [address] [place] [address] [place] [address] Malignant neoplasm of urinary bladder, unspecified site (HCC) (Primary Dx) 02/15/2025 1:00 PM EDT Visit (SP) Office Hematology/Oncology [address] [place] [address] [place] [address] Darwin Quinteros MD Malignant neoplasm of urinary bladder, unspecified site (HCC) (Primary Dx) 02/13/2025 Telephone Hematology/Oncology [address] [place] [address] [place] [address] Darwin Quinteros MD Lab Orders 02/08/2025 1:00 PM EDT Infusion Center Hematology/Oncology [address] [place] [address] [place] [address] Malignant neoplasm of urinary bladder, unspecified site (HCC) (Primary Dx) 02/08/2025 Telephone Hematology/Oncology [address] [place] [address] [place] [address] Yaima Sinclair RN Patient Update from Last 3 Months Family History Medical [...] is lower risk 7 10/19/2024 Data from: https://www.neighborhoodatlas.medicine.[facility].edu/. Last address used for calculation [address] [place] [address] [address] 10/19/2024 Sex and Gender Information [...] Description 08/02/2025 12:45 PM EST Office Visit [facility] [address] [address] 6 month follow up with chemotx Maintenence BCG x3 08/02/2025 1:00 PM EST Visit (SP) Office Hematology/Oncology [address] [address] Darwin Quinteros MD [address] [place] [address] 6 month follow up with chemotx Maintenence BCG x3 08/02/2025 1:30 PM EST Infusion Center Hematology/Oncology [address] [place] [address] [place] [address] 6 month follow up with chemotx Maintenence BCG x3 08/09/2025 1:00 PM EST Infusion Center Hematology/Oncology [address] [place] [address] [place] [address] 6 month follow up with chemotx Maintenence BCG x3 08/16/2025 1:00 PM EST Infusion Center Hematology/Oncology [address] [place] [address] [place] [address] 6 month follow up with chemotx Maintenence [...] 2015 Shingrix Vaccine (1 of 2) 2015 Prostate Cancer Screening Discussion 09/04/2024 09/04/2019 Influenza [...] of urinary bladder, unspecified site (HCC) Dysuria from Last 3 Months Results * (ABNORMAL) COMPREHENSIVE METABOLIC PANEL (02/15/2025 12:43 PM EDT) Protein, Total 6.6 6.3 - 8.0 g/dL 02/15/2025 1:35 PM EDT [facility] Albumin 4.1 3.9 - 4.9 g/dL 02/15/2025 1:35 PM EDT [facility] Calcium, Total 9.5 8.5 - 10.2 mg/dL 02/15/2025 1:35 PM EDT [facility] Bilirubin, Total 0.5 0.2 - 1.3 mg/dL 02/15/2025 1:35 PM EDT [facility] Alkaline Phosphatase 81 38 - 113 U/L 02/15/2025 1:35 PM EDT [facility] AST 11(L) 14 - 40 U/L 02/15/2025 1:35 PM EDT [facility] ALT 8(L) 10 - 54 U/L 02/15/2025 1:35 PM EDT [facility] Glucose 101(H) 74 - 99 mg/dL 02/15/2025 1:35 PM EDT [facility] Comment: The [place] Diabetes Association (ADA) provides guidance for cutoff [...] Standards of Medical Care in Diabetes 2016, [place] Diabetes Association. Diabetes Care. 2016.39(Suppl 1). BUN 14 9 - 24 mg/dL 02/15/2025 1:35 PM EDT [facility] Creatinine 0.99 0.73 - 1.22 mg/dL 02/15/2025 1:35 PM EDT [facility] Sodium 143 136 - 144 mmol/L 02/15/2025 1:35 PM EDT [facility] Potassium 4.2 3.7 - 5.1 mmol/L 02/15/2025 1:35 PM EDT [facility] Chloride 104 98 - 107 mmol/L 02/15/2025 1:35 PM EDT [facility] CO2 26 22 - 30 mmol/L 02/15/2025 1:35 PM EDT [facility] Anion Gap 13 8 - 15 mmol/L 02/15/2025 1:35 PM EDT [facility] Estimated Glomerular Filtration Rate 88 >=60 mL/min/1. 73m 02/15/2025 1:35 PM EDT [facility] Comment:Estimated Glomerular Filtration Rate (eGFR) is [...] 12:43 PM EDT 02/15/2025 12:43 PM EDT Unique Roque APRN.ACID ADJUSTER LABORATORY Final Re sult [facility] [address] [place] [address] * (ABNORMAL) COMPLETE BLOOD COUNT AND DIFFERENTIAL (02/15/2025 12:43 PM EDT) WBC 6.22 3.70 - 11.00 k/uL 02/15/2025 12:51 PM EDT [facility] RBC 4.89 4.20 - 6.00 m/uL 02/15/2025 12:51 PM EDT [facility] Hemoglobin 14.6 13.0 - 17.0 g/dL 02/15/2025 12:51 PM EDT [facility] Hematocrit 42.3 39.0 - 51.0 % 02/15/2025 12:51 PM EDT [facility] MCV 86.5 80.0 - 100.0 fL 02/15/2025 12:51 PM EDT [facility] MCH 29.9 26.0 - 34.0 pg 02/15/2025 12:51 PM EDT [facility] MCHC 34.5 30.5 - 36.0 g/dL 02/15/2025 12:51 PM EDT [facility] RDW-CV 11.9 11.5 - 15.0 % 02/15/2025 12:51 PM EDT [facility] Platelet Count 225 150 - 400 k/uL 02/15/2025 12:51 PM EDT [facility] MPV 9.5 9.0 - 12.7 fL 02/15/2025 12:51 PM EDT [facility] Neutrophils % 78.3 % 02/15/2025 12:51 PM EDT [facility] Abs Neut 4.87 1.45 - 7.50 k/uL 02/15/2025 12:51 PM EDT [facility] Lymphocytes % 15.6 % 02/15/2025 12:51 PM EDT [facility] Abs Lymph 0.97(L) 1.00 - 4.00 k/uL 02/15/2025 12:51 PM EDT [facility] Monocytes % 5.6 % 02/15/2025 12:51 PM EDT [facility] Abs [place] 0.35 <0.87 k/uL 02/15/2025 12:51 PM EDT [facility] Eosinophils % 0.0 % 02/15/2025 12:51 PM EDT [facility] Abs Eosin <0.03 <0.46 k/uL 02/15/2025 12:51 PM EDT [facility] Basophils % 0.2 % 02/15/2025 12:51 PM EDT [facility] Abs Baso <0.03 <0.11 k/uL 02/15/2025 12:51 PM EDT [facility] Immature Granulocytes % 0.3 % 02/15/2025 12:51 PM EDT [facility] Abs Immature Gran <0.03 <0.10 k/uL 02/15/2025 12:51 PM EDT [facility] NRBC 0.0 /100 WBC 02/15/2025 12:51 PM EDT [facility] Absolute nRBC <0.01 <0.01 k/uL 02/15/2025 12:51 PM EDT [facility] Diff Type Auto 02/15/2025 12:51 PM EDT [facility] Blood BLOOD SPECIMEN / Unknown Venipuncture / Unknown 02/15/2025 12:43 PM EDT 02/15/2025 12:43 PM EDT us Unique Roque BANJO REPAIR PERSON.ACID ADJUSTER LABORATORY Final Re sult [facility] [address] [place] [address] from Last 3 Months Insurance A[employer] Care Teams Steam Drier Tender Relationship Specialty Start Date End Date Parth García II, MD [address] [facility] [address] [place] [address] PCP - General Internal Medicine 10/26/24 Go Paulson MD Urology 10/12/24 Natasha Grimes RN [address] [place] [address] [address] [place], [place] [id number] Specialty Chamfering Machine Operator Hematology/Oncology 10/31/24 Darwin Quinteros MD [address] [place] [address] Physician Hematology/Oncology 10/31/24 Kimberlee Rosenberg LSW Steel Worker 11/06/24
--- OUTSIDE RECORDS SUMMARY | 2025-05-10 06:51 | XMS_ITS | Clinical Summary ---
Author Organization [facility] Address [id number] [address] [place] [address] Care Team Providers Care Crib Pad Maker Name Role Phone Parth García MD Primary Care Provider [phone] Social History Tobacco Use Types Packs/Day Years [...] Not on file Insurance [employer] Care Teams Crib Pad Maker Relationship Specialty Start Date End Date Parth García MD [address] [phone] PCP - General Internal Medicine 06/03/17
--- OUTSIDE RECORDS SUMMARY | 2025-05-10 06:51 | XMS_ITS | Encounter Summary ---
Author Organization [facility] Healthcare Address [address] [facility] [place] [address] Care Team Providers Care Excellence Consultant Name Role Phone Parth García MD Primary Care Provider [phone] Encounter Details Date Type Department Care Team (Latest Contact Info) Description 04/26/2025 Travel Social History Tobacco Use Types Packs/Day [...] How often do you attend chur or mormonism services? Patient declined 03/21/2025 Do you belong to any clubs o r organizations such as zoroastrianism groups, unions, fraternal or athletic groups, or [...] Recorded Patient Health Questionnaire-2 Score 0 04/05/2025 [facility] Questionnaire Answer Date [...] time in the past 12 m [facility], were you homeless or living in a fpc (including now)? No 03/21/2025 Sex and Gender Information Value Date Recorded Sex Assigned at Not on file Legal Sex Male 6:46 PM EDT Gender Identity Not on file Sexual Orientation Not on file documented as of this encounter Plan of Treatment Upcoming Encounters Date Type Department Care Team (Late st Contact Info) Description 05/17/2025 9:45 AM EDT Office Visit [facility] [address] [place] [address] Jr. Santiago White DO [address] [facility] [address] [place] [address] documented as of this encounter Visit Diagnoses Not on filedocumented in this encounter Care Teams Excellence Consultant Relationship Specialty Start Date End Date Parth García MD [address] [facility] [address] [place] [address] PCP - General Internal Medicine 04/16/25 documented as of this encounter
--- NOTE | 2025-05-10 06:52 | MR_ITS ---
[address] [address] Patient Name: VENITA HOFFMAN MRN: [id number] date: 1965 Sex: M Assigned Patient Location: MRI Current Patient Location: [facility] Accession/Order Number: [id number] Exam Date: 05/10/2025 08:22 Report Date: 05/10/2025 08:28 At the request of: MATTHEW SOTO Procedure: MR knee RT wo con EXAMINATION: MRI OF THE RIGHT KNEE CLINICAL DATA: Chronic right medial knee pain for 3 months. No known injury. COMPARISON: none TECHNIQUE: Multiecho, multiplanar imaging was performed with use of an extremity coil. No contrast was administered. FINDINGS: Joint:Moderate joint effusion. Articular cartilage of the patella appears unremarkable. Articular cartilage appears thinned without focal defect involving the medial condyle of the femur. There is significant bone marrow edema involving the medial condyle of the femur. No fracture line is seen. Small amount of bone marrow edema is seen involving the tibial spines. No fracture is seen in this region. Soft tissues: Normal Quadriceps/Patellar tendon/retinaculum: Normal Muscles: Normal ACL:Normal PCL:Normal Medial Meniscus:Tear posterior horn Lateral Meniscus:Normal MCL:Normal LCL complex: Normal MR/MR knee RT wo con IMPRESSION: LARGE AMOUNT OF BONE MARROW EDEMA SEEN INVOLVING THE MEDIAL CONDYLE OF THE FEMUR WITHOUT FRACTURE. THERE IS ASSOCIATED TEAR INVOLVING THE POSTERIOR HORN OF THE MEDIAL MENISCUS WELL MODERATE JOINT EFFUSION. SMALL AMOUNT OF BONE MARROW EDEMA ALONG THE TIBIAL SPINES WITHOUT FRACTURE. ACL APPEARS INTACT.. Impression dictated by: Leonardo Mitchell Jr., D.O. 05/10/2025 8:28 AM Dictation Location: [place] [address] Electronically authenticated by: [id number] Y Date: 05/10/2025 08:28
--- OUTSIDE RECORDS SUMMARY | 2025-05-10 06:52 | XMS_ITS | CCD ---
Author Organization [facility] Team Providers Care Recreational Specialist Name Role Phone Parth García Primary Care Provider PARTH GARCÍA Primary Care Unavailable OLEKSANDR HOOVER Attending Unavailable PARTH GARCÍA Primary Care Unavailable VENITA CONWAY Attending Unavailable BG HUMPHREY Admitting Unavailable BG HUMPHREY Attending Unavailable PARTH GARCÍA Primary Care Unavailable PARTH GARCÍA Primary Care Physician KERRI García Primary Care Provider MD Jarad Valdivia Attending Provider RICKY, DR CASTANON Primary Care Unavailable VALDIVIA ., DR ABRAHAM Attending Unavailable VALDIVIA ., DR ABRAHAM Consulting Unavailable VALDIVIA ., DR ABRAHAM Admitting Unavailable ROSARIO, ELIAS Consulting Unavailable RICKY, DR CASTANON Admitting Unavailable RICKY, DR CASTANON Attending Unavailable RICKY, DR CASTANON Consulting Unavailable RICKY, DR CASTANON Primary Care Unavailable ZIBRANDIE, DR GRISEL Hendrickson Consulting Unavailable RICKY, DR CASTANON Primary Care Unavailable VALDIVIA ., DR ABRAHAM Attending Unavailable VALDIVIA ., DR ABRAHAM Consulting Unavailable VALDIVIA ., DR ABRAHAM Admitting Unavailable RICKY, DR CASTANON Primary Care Unavailable PAY ., DR TERRY Attending Unavailable PAY ., DR TERRY Admitting Unavailable ZIEBJACK, DR GRISEL Hendrickson Consulting Unavailable PAY ., DR TERRY Consulting Unavailable RICKY, DR CASTANON Primary Care Unavailable VALDIVIA ., DR ABRAHAM Attending Unavailable VALDIVIA ., DR ABRAHAM Consulting Unavailable VALDIVIA ., DR ABRAHAM Admitting Unavailable GALLAGHER, TARAH Consulting Unavailable RICKY, DR CASTANON Primary Care Unavailable VALDIVIA ., DR ABRAHAM Attending Unavailable VALDIVIA ., DR ABRAHAM Consulting Unavailable VALDIVIA ., DR ABRAHAM Admitting Unavailable GRIFFIN IITOM Consulting Unavailable YOUSUF FAGAN Consulting Unavailable Flory, Brandy Unavailable MD Jarad Valdivia Attending Provider [phone] Ricky II Parth Primary Care Provider [phone] Shea JARA, Jarad R Unavailable Unavailable Primary Care Provider Unavailglenn pierce Ricky MANNING MD, Daniel B Primary Care Provider [phone] Cornelio LINO, Nichole G Unavailable [phone] Neli JARA, Darwin Unavailable [phone] Chet PHIPPS, Kimberlee Unavailable Unavailable Parth García II Primary Care Provider [phone] Giovani JARA, Imdinh Attending Provider [phone] Asaad, Imad Attending Unavailable Louis Garcíael Primary Care Unavailable Asaad, Imad Admitting Unavailable Ricky, Parth Primary Care Unavailable Asaad, Imad Admitting Unavailable Asaad, Imad Attending Unavailable Valdivia, Jarad Admitting Unavailable Valdivia, Jarad Attending Unavailable Valdivia, Jarad Admitting Unavailable Valdivia, Jarad Attending Unavailable Valdivia, Jarad Admitting Unavailable Valdivia, Jarad Attending Unavailable Louis Garcíael Primary Care Unavailable Asaad, Imad Attending Unavailable García, Parth Primary Care Unavailable Asaad, Imad Admitting Unavailable Shea JARA, Jarad Hendrickson Unavailable VENNEPUREDDY, DARWIN Attending Unavailable VENNEPUREDDY, DARWIN Referring Unavailable GARCÍA II, PARTH B Primary Care Unavailable VENNEPUREDDY, DARWIN Referring Unavailable GARCÍA II, PARTH B Primary Care Unavailable VENNEPUREDDY, DARWIN Referring Unavailable GARCÍA II, PARTH B Primary Care Unavailable VENNEPUREDDY, DARWIN Referring Unavailable GARCÍA II, PARTH B Primary Care Unavailable VENNEPUREDDY, DARWIN Referring Unavailable GARCÍA II, PARTH B Primary Care Unavailable VENNEPUREDDY, DARWIN Referring Unavailable GARCÍA II, PARTH B Primary Care Unavailable VENNEPUREDDY, DARWIN Attending Unavailable SHEA JARAD R Referring Unavailable VENNEPUREDDY, DAWRIN Referring Unavailable GARCÍA II, PARTH B Primary Care Unavailable VENNEPUREDDY, DARWIN Referring Unavailable GARCÍA II, PARTH B Primary Care Unavailable VENNEPUREDDY, DARWIN Attending Unavailable GARCÍA II, PARTH B Primary Care Unavailable GARCÍA II, PARTH B Primary Care Unavailable VENNEPUREDDY, DARWIN Referring Unavailable PATRH GARCÍA II B Primary Care Unavailable VENNEPUREDDY, DARWIN Referring Unavailable RICKY MANNING, PARTH B Primary Care Unavailable VENNEPUREDDY, DARWIN Referring Unavailable GARCÍA II, PARTH B Primary Care Unavailable VENNEPUREDDY, DARWIN Referring Unavailable GARCÍA II, PARTH B Primary Care Unavailable VENNEPUREDDY, DARWIN Referring Unavailable GARCÍA II, PARTH B Primary Care Unavailable GARCÍA II, PARTH B Primary Care Unavailable VENNEPUREDDY, DARWIN Attending Unavailable GARCÍA II, PARTH B Primary Care Unavailable GARCÍA II, PARTH B Primary Care Unavailable Jarad VALDIVIA Admitting Unavailable VALDIVIA, Jarad Hendrickson Attending Unavailable BRANDO, ALTAGRACIA Pelayo Attending Unavailable BRANDO, ALTAGRACIA Pelayo Attending Unavailable BRANDO, ALTAGRACIA Pelayo Attending Unavailable BRANDO, ALTAGRACIA Pelayo Attending Unavailable Orzech, Daphne Kirk Attending Unavailable BRANDO, ALTAGRACIA Pelayo Attending Unavailable VALDIVIA, Jarad Hendrickson Attending Unavailable VALDIVIA, Jarad Hendrickson Attending Unavailable VALDIVIA, Jarad Hendrickson Attending Unavailable VALDIVIA, Jarad Hendrickson Attending Unavailable VALDIVIA, Jarad Hendrickson Attending Unavailable VALDIVIA, Jarad Hendrickson Admitting Unavailable Parth García MD Primary Care Provider PARTH GARCÍA Attending Unavailable BRIANNA VELASCO Attending Unavailable MATTHEW SANCHEZ Attending Unavailable BRIANNA VELASCO Referring Unavailable MATTHEW SANCHEZ Referring Unavailable Allergies Allergy Classification Reported Allergen(s) Allergy Type Date of Onset Reaction(s) Facility (1 source) corn extract Drug Allergy [facility] Repository (2 sources) No Known Medication Allergies; Translations: [No Known Medication Allergies] Propensity to adverse reactions (disorder) [facility] Repository Medications Current Medications Medication [...] hydrochloride 10 mg extended release oral tablet (20 sources) alpha-Adrenergic Nasrin Start: 03-05-2025 take 1 tablet by mouth every twenty-four hours Alfuzosin 10 mg tablet extended release 24 hr Active 10 MG PO Once March 05, 2025 12:00am Start: 02-03-2024 take 1 tablet by greer th once daily alfuzosin 10 mg ER Tab 10 mg = 1 tab(s), Oral, Daily, # 90 tab(s), Refills(s) 3, Pharmacy: [id number], 180, cm, 05/18/24 10:37:00 EDT, Height/Length Dosing, 59, kg, 05/18/24 10:37:00 EDT, Weight Dosing Start Date: 07/04/24 Status: Ordered Quantity: 90.0 Unit: tab(s) Repeat number: 4 calcium chloride 0.0014 meq/ml / potassium chloride 0.004 meq/ml / sodium chloride 0.103 meq/ml / sodium lactate 0.028 meq/ml injectable solution (3 sources) Start: 05-16-2019 lactated ringe rs infusion 2 ml fentaNYL 0.05 mg/ml injection (2 sources) Opioid Agonist Start: 05-16-2019 fentaNYL (SUBL IMAZE) injection 50 mcg Start: 05-16-2019 fentaNYL (SUBL [...] week(s), 28 tab(s), Refill(s) 0, [id number], 180, cm, 02/03/24 8:10:00 EDT, Height/Length Dosing, 59, kg, 02/03/24 8:10:00 EDT, Weight Dosing Start Date: 02/03/24 Stop Date: 02/17/24 Status: Ordered Completed/Discontinued Medications Medication Drug Class(es) Dates Sig (Normalized) Sig (Original) acetaminophen 325 mg oral tablet (1 source) Start: 05-16-2019 End: 05-16-2019 acetaminophen (TYLENOL) tablet 650 mg bcg (JOSE DANIEL BCG) 50 mg in NaCl (PF) 0.9% 50 mL (2 sources) Start: 02-22-2025 End: 02-22-2025 50 mg, INTRAVESICAL, ONCE, 1 dose, On Tue02/22/25 at 1330, Hazardous Chemotherapy Drug: Use appropriate PPE. Protect from Light. Start: 02-01-2025 End: 02-01-2025 50 mg, INTRAVESICAL, ONCE, 1 dose, On Tue02/01/25 at 1400, Hazardous Chemotherapy Drug: Use appropriate PPE. Protect from Light. bcg (JOSE DANIEL BCG) 50 mg in NaCl 0.9% 50 mL (1 source) Start: 11-08-2024 End: 11-08-2024 50 mg, INTRAVESICAL, ONCE, 1 dose, On Liliane 11/08/24 at 0930, Instill into bladder via catheter and retain for 120 minutes, followed by bladder drainage. PROTECT FROM LIGHT Hazardous Chemotherapy Drug: Use appropriate PPE. Protect from Light. bcg 50 mg in NaCl 0.9% 50 mL (2 sources) Start: 11-02-2024 End: 11-02-2024 50 mg, INTRAVESICAL, ONCE, 1 dose, On Tue11/02/24 at 1400, Instill into bladder via catheter and retain for 120 minutes, followed by bladder drainage. PROTECT FROM LIGHT Hazardous Chemotherapy Drug: Use appropriate PPE. Protect from Light. Start: 10-26-2024 End: 10-26-2024 50 mg, INTRAVESICAL, ONCE, 1 dose, On Tue10/26/24 at 1330, Instill into bladder via catheter and retain for 120 minutes, followed by bladder drainage. PROTECT FROM LIGHT Hazardous Chemotherapy Drug: Use appropriate PPE. Protect from Light. ceFAZolin (ANCEF) 2 g in dextrose 5 % 100 mL IVPB (1 source) Start: 05-16-2019 End: 05-16-2019 ceFAZolin (ANCEF) 2 g in dextrose 5 % 100 mL IVPB ciprofloxacin 500 mg oral tablet (6 sources) Quinolone Antimicrobial Start: 03-25-2025 take 1 tablet by mouth once daily Cipro 500 mg Tab 500 mg = 1 tab(s), Oral, Daily, Take 1 tablet the day before the procedure and 1 tablet after the procedure, # 2 tab(s), Refills(s) 0, Pharmacy: [id number], 180, cm, 12/19/24 7:44:00 EDT, Height/Length Dosing, 62, kg, 12/19/24 7:44:00 EDT, Weight Dosing Start Date: 03/25/25 Status: Ordered Quantity: 2.0 Unit: tab(s) Repeat number: 1 Start: 01-12-2024 take 1 tablet by greer once daily Cipro 500 mg Tab 500 mg = 1 tab(s), Oral, Daily, Take 1 tablet the day before the procedure and 1 tablet after the procedure, # 2 tab(s), Refills(s) 0, Pharmacy: [facility] #[id number], 180, cm, 01/07/23 8:59:00 EDT, Height/Length Dosing, 59, kg, 01/07/23 8:59:00 EDT, Weight Dosing Start Date: 01/12/24 Status: Ordered Start: 10-07-2022 take 1 tablet by greer th once daily Cipro 500 mg Tab 500 mg = 1 tab(s), Oral, Daily, Take 1 tablet the day before the procedure and 1 tablet after the procedure, # 2 tab(s), Refills(s) 0, Pharmacy: [id number] Start Date: 10/07/22 Status: Ordered Start: 05-16-2019 [...] levofloxacin (LEVAQUIN) 500 MG/100ML infusion 500 mg lidocaine hydrochloride 0.02 mg/mg topical gel (5 sources) Antiarrhythmic, Amide Local Anesthetic Start: 02-22-2025 End: 02-22-2025 11 mL, OTHER, ONCE, 1 dose, On Tue02/22/25 at 1330, Intravesical administration Start: 02-01-2025 End: 02-01-2025 11 mL, OTHER, ONCE, 1 dose, On Tue02/01/25 at 1400, Intravesical administration Start: 11-08-2024 End: 11-08-2024 11 mL, OTHER, ONCE, 1 dose, On Liliane 11/08/24 at 0930, Intravesical administration Start: 11-02-2024 End: 11-02-2024 11 mL, OTHER, ONCE, 1 dose, On Tue11/02/24 at 1400, Intravesical administration Start: 10-26-2024 End: 10-26-2024 11 mL, OTHER, ONCE, 1 dose, On 10/26/24 at 1330, Intravesical administration 1 ml triamcinolone acetonide 40 mg/ml prefilled syringe (5 sources) Corticosteroid Start: 04-05-2025 End: 04-05-2025 triamcinolone acetonide (Kenalog-40) injection 40 mg Start: 04-05-2025 End: 04-05-2025 triamcinolone acetonide (Joe alog-40) injection 40 mg Start: 04-05-2025 End: 04-05-2025 40 mg, Intra-articular, Once , On Tue04/05/25 at 1115, For 1 dose Start: 04-05-2025 End: 04-05-2025 40 mg, Intra-articular, Once , On Tue04/05/25 at 1115, For 1 dose Start: 05-15-2023 Kenalog-40 Apr, 40 mg Problems Active Problems Problem Classification Problem Date Documented Date Episodic/Chronic Abdominal pain (1 source) Unspecified abdominal pain; Translations: [UNSPECIFIED ABDOMINAL PAIN] Onset: 02-15-2023 Episodic Calculus of urinary tract (20 sources) Kidney stone; Translations: [Calculus of kidney] Onset: 02-03-2024 Episodic Cancer of bladder (18 sources) History of malignant neoplasm of bladder; Translations: [Personal history of malignant neoplasm of bladder] Onset: 10-22-2022 Episodic Cancer; other and unspecified primary (16 sources) H/O: malignant neoplasm 08-03-2019 Episodic Disorders of lipid metabolism (13 sources) Mixed hyperlipidemia; Translations: [Mixed hyperlipidemia] Onset: 03-21-2025 03-21-2025 Chronic Diverticulosis and diverticulitis (13 sources) Diverticulosis of colon; Translations: [Diverticulosis of large intestine without perforation or abscess without bleeding] Onset: 03-21-2025 03-21-2025 Chronic Genitourinary congenital anomalies (20 sources) Double ureter; 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] Onset: 02-03-2024 Chronic Genitourinary symptoms and ill-defined conditions (20 sources) Microscopic hematuria; Translations: [Asymptomatic microscopic hematuria] Onset: 12-24-2022 08-03-2019 Episodic Hyperplasia of prostate (20 sources) Benign prostatic hypertrophy with outflow obstruction; Translations: [Prostate nodule] Onset: 10-15-2022 Resolved: 04-05-2025 08-03-2019 Chronic Joint disorders and dislocations; trauma-related (4 sources) Derangement of right knee; Translations: [Unspecified internal derangement of right knee] 04-26-2025 Chronic Nausea and vomiting (4 sources) Nausea; Translations: [NAUSEA] Onset: 02-11-2023 Episodic Nephritis; nephrosis; renal sclerosis (20 sources) Atrophy of kidney; Translations: [Atrophy of kidney (terminal)] Onset: 02-03-2024 Chronic Other aftercare (1 source) Other remote computer terminal operator (current) drug therapy; Translations: [OTH LONGTERM CURRENT DRUG THERAPY] Onset: 02-15-2023 Episodic Other aftercare (3 sources) Taking high risk medication; Translations: [Other remote computer terminal operator (current) drug therapy] 10-26-2024 Episodic Other connective tissue disease (2 sources) Pes anserinus bursitis of right knee; Translations: [Other bursitis of knee, right knee] 03-22-2025 Episodic Other diseases of veins and lymphatics (5 sources) Abdominal varicosities; Translations: [Varicose veins of other specified sites] 12-31-2024 Episodic Other diseases of veins and lymphatics (6 sources) Varicose veins of other specified sites; Translations: [Varices of other sites] 12-31-2024 Episodic Other liver diseases (20 sources) Cirrhosis of liver; Translations: [Unspecified cirrhosis of liver] Onset: 03-21-2025 12-31-2024 Chronic Other liver diseases (5 sources) Portal hypertension; Translations: [Portal hypertension] 12-31-2024 Chronic Other liver diseases (7 sources) Unspecified cirrhosis of liver; Translations: [Cirrhosis of liver without mention of alcohol] Onset: 01-04-2025 12-31-2024 Chronic Other liver diseases (6 sources) Portal hypertension; Translations: [Portal hypertension] 12-31-2024 Chronic Other non-traumatic joint disorders (4 sources) Pain in right knee; Translations: [Pain in joint, lower leg] 04-05-2025 Episodic Other screening for suspected conditions (not mental disorders or infectious disease) (20 sources) Raised prostate specific antigen; Translations: [Elevated prostate specific antigen [PSA]] Onset: 12-22-2022 Episodic Poisoning by nonmedicinal substances (1 source) Toxic effect of venom of bees, undetermined, initial encounter Episodic Residual codes; unclassified (11 sources) Reduced libido; Translations: [Decreased libido] Onset: 04-01-2025 Episodic Screening and history of mental health and substance abuse codes (1 source) Personal history of nicotine dependence; Translations: [PERSONAL HISTORY OF NICOTINE DEPEND] Onset: 02-22-2023 Episodic Unclassified (11 sources) Asymptomatic microscopic hematuria 01-06-2023 Unclassified (1 source) Established Patient Onset: 02-15-2025 Urinary tract infections (1 source) Cystitis, unspecified without hematuria; Translations: [CYSTITIS UNS WITHOUT HEMATURIA] Onset: 02-15-2023 Episodic Past or Other Problems Problem Classification Problem Date Documented Da te Episodic/Chronic Biliary tract disease (10 sources) Calculus of gallbladder with cholecystitis; Translations: [Biliary calculus] Onset: 05-16-2019 Resolved: 04-05-2025 05-16-2019 Episodic Cancer of bladder (20 sources) Malignant tumor of urinary bladder; Translations: [Malignant neoplasm of bladder, unspecified] Onset: 02-03-2024 Resolved: 04-05-2025 Chronic Other non-traumatic joint disorders (4 sources) Pain in left shoulder; Translations: [PAIN IN LEFT SHOULDER] Onset: 11-15-2022 Episodic Results Test Name Value Interpretation Reference Range Facility XR Knee - right 1 or 2 Views on 04-27-2025 Imaging Result: AP and Lateral weight bearing: [...] weight-bearing knee X-ray. No acute bony process [facility] XR Knee - right 1 or 2 Views on 04-26-2025 Radiology Study observation (narrative) [facility] ALL CBC WITH AUTO DIFFon BASOPHILS ABSOLUTE AUTO [address] [facility] Basophils/100 WBC (Bld) 0.7 % 0.2 - 2.0 % [facility] Eosinophils/100 WBC (Bld) 0.4 % Low 0.9 - 7.0 % [facility] Erythrocyte distribution width (RBC) [Ratio] 12.1 % 11.0 - 15.0 % [facility] Hematocrit (Bld) [Volume fraction] 41.7 % Low 42.0 - 54.0 % [facility] Hemoglobin (Bld) [Mass/Vol] 14.4 g/dL 14.0 - 18.0 g/dL [facility] IMMATURE GRANULOCYTES ABS AUTO 0.[address] [facility] Immature granulocytes/100 WBC (Bld) 0.2 % 0.0 - 0.5 % [facility] Interpretation and review of laboratory results Abnormal [facility] LYMPHOCYTES ABSOLUTE AUTO [address] [facility] Lymphocytes/100 WBC (Bld) 22.6 % 20.5 - 60.0 % [facility] MCH (RBC) [Entitic mass] 30.3 pg 25.9 - 34.[address] [facility] MCHC (RBC) [Mass/Vol] 34.5 g/dL 29.9 - 35.2 g/dL [facility] MCV (RBC) [Entitic vol] 87.8 fL 80.0 - 94.[address] [facility] MONOCYTES ABSOLUTE AUTO 0.[address] [facility] Monocytes/100 WBC (Bld) 5.5 % 1.7 - 12.0 % [facility] NEUTROPHILS ABSOLUTE AUTO 3.[address] [facility] Neutrophils/100 WBC (Bld) 70.6 % 43.0 - 75.0 % [facility] Platelet mean volume (Bld) [Entitic vol] 9.8 fL 9.5 - 13.[address] [facility] EO # [address] [facility] PLT 166 [facility] RBC 4.75 [facility] WBC 4.[address] [facility] ALL TESTOSTERONEon Testosterone [Mass/Vol] 906 ng/dL 264 - 916 ng/dL [facility] Comment on above: Adult male reference interval is based on a population of healthy nonobese males (BMI <30) between 19 and 39 years old. Glory, et.al. JCEM 2017,102;4497-9560. PMID: 72122545. Performed at: [facility] [id number] Warehouse Manager: Landon Austin PhD, Phone: [phone] [facility] Fish and Urine Cyt o ([facility])on 04-06-2025 UVFISH & UC Diagnosis Info Invalid Interpretation Code [facility] Comment on above: Result Comment: A:Ur ine,Bladder Wash:Bladder Wash Diagnosis Summary - Atypical Urothelial Cells; Inconclusive for Malignancy. Adequate cellularity for evaluation. Diagnosis Summary - The [facility] FISH study detected a positive profile. [facility] FISH evaluates chromosomes 3, 7, 17, and 9p21 for aneuploid and deletion events associated with urothelial cell carcinoma. 219 cells were analyzed in this evaluation. Evidence of aneuploidy in at least 19 cells were found. These findings should be correlated with cytology and cystoscopy results.* Microscopic Notes - Microscopic Notes - Abnormal cells 9p21 deletions: 0 Abnormal cells aneploid events: 19 Total cells analyzed: 219 Hematuria: Gross Description Site ID:A color Yellow fixative Alcohol Received 110 mls of clear yellow fluid with the patient's name and, Bladder Wash on the vial. Electronically signed by : on: 04/06/2025 17:26:54 Performed By: #### 1 [id number] #### [facility] [address] [place] [id number] No Panel Informationon 04-05 CHARLES Page 04/05/2025 11:19 AM Arthrocentesis Date/Time: [...] Procedure completion: Tolerated well, no immediate complications [facility] Reminderson 04-04-2025 Reminders Reminders From: Anna Sigala To: EU - Recalls Valdivia; Sent: 12/24/2024 09:34:15 EDT Show up: 02/24/2025 09:34:00 EDT Subject: cysto/fish/cytol Due Date/Time: 03/25/2025 09:34:00 EDT Reminder/Recall Patient is due for Cysto/FISH/cytol (bt ck) in May 2025 Patient due in Jun 2025. LG l/m on cell vm.LG Patient called back, sched for Jul 15 in [place] office.LG Normal Phil [facility] Ambulatory Visit Summaryon 0 04-01-2025 Ambulatory Visit Summary Ambulatory Visit Summary VENITA ROSENBERG :1965 Visit Date:04/01/2025 Ambulatory Visit Instructions Your Diagnosis Personal history of bladder cancer Elevated PSA Low libido BPH with urinary obstruction Prostate nodule Kidney stone Duplicated renal collecting system Renal atrophy Your Care Team Attending Physician - SHEA JARA, Jarad Hendrickson Primary Care Physician - PARTH GARCÍA MD This Is Your Medications List alfuzosin (alfuzosin 10 mg ER Tab) Contact prescribing physician if questions or concerns ciprofloxacin (Cipro 500 mg Tab) Procedures Performed Cystoscopy (04/01/2025), Cystoscopy (12/19/2024), TURBT - Transurethral resection of bladder tumor (03/01/2024), Flexible cystoscopy (02/03/2024), Transrectal needle biopsy of prostate (12/22/2022), Cystoscopy (10/22/2022), Cystoscopy (10/23/2021), Cystoscopy (09/10/2020), Cystoscopy (09/25/2019), Cystoscopy (09/05/2018), Transrectal biopsy of prostate using ultrasound (US) guidance (08/19/2015), Cystoscopic removal of ureteric stent (05/30/2012), Cystoscopy and transurethral resection of bladder tumour (05/18/2012), History of cholecystectomy, History of tonsillectomy. Discharge Vitals Temperature (Temporal Artery) 37 ???C Heart Rate (Peripheral) 60 Respiratory Rate 16 Blood Pressure 101/65 Height 180 cm Height 71 in Weight 62 kg Weight 136.686 lb BMI 19.14 What to do next You Need to Schedule the Following Appointments Follow Up with SHEA JARA, Jarad Hendrickson, URL When: Comments: 3 mos surveillance cysto Where: [facility] [address] [place] [address]- [phone] Medications What How Much When Instructions Unchanged alfuzosin (alfuzosin 10 mg ER Tab) 1 Tablets By Mouth Every day Unchanged ciprofloxacin (Cipro 500 mg Tab) 1 Tablets By Mouth Every day Take 1 tablet the day before the procedure and 1 tablet after the procedure Contact prescribing physician if questions or concerns Medications and Immunizations Administered Given lidocaine Top 2% Gel w/Appl 6 mL, 6 mL, Topical. For: Personal history of bladder cancer Allergies No Known Medication Allergies Problems Ongoing - Any problem that you are currently receiving treatment for. Bladder cancer BPH with urinary obstruction Cirrhosis of liver Duplicated renal collecting system Elevated PSA Kidney stone Low libido Personal history of bladder cancer Prostate nodule Renal atrophy Patient Survey You may receive a survey via text or e-mail asking about your office visit. Please share your experience with us by completing your survey. We appreciate your feedback and thank you for choosing us for your care. Education Materials Prostate Cancer Screening Prostate cancer screening is testing that is done to check for the presence of prostate cancer in men. The prostate gland is a walnut-sized gland that is located below the bladder and in front of the rectum in males. The function of the prostate is to add fluid to semen during ejaculation. Prostate cancer is one of the most common types of cancer in men. Who should have prostate cancer screening? Screening recommendations vary based on age and other risk factors, as well as between the professional organizations who make the recommendations. In general, screening is recommended if: ??? You are age 50 to 70 and have an average risk for prostate cancer. You should talk with your health care provider about your need for screening and how often screening should be done. Because most prostate cancers are slow growing and will not cause , screening in this age group is generally reserved for men who have a 10- to 15-year life expectancy. ??? You are younger than age 50, and you have these risk factors: ? Having a father, brother, or uncle who has been diagnosed with prostate cancer. The risk is higher if your family member's cancer occurred at an early age or if you have multiple family members with prostate cancer at an early age. ? Being a male who is Black or is of [place] or sub-Saharan descent. In general, screening is not recommended if: ??? You are younger than age 40. ??? You are between the ages of 40 and 49 and you have no risk factors. ??? You are 70 years of age or older. At this age, the risks that screening can cause are greater than the benefits that it may provide. If you are at high risk for prostate cancer, your health care provider may recommend that you have screenings more often or that you start screening at a younger age. How is screening for prostate cancer done? The recommended prostate cancer screening test is a blood test called the prostate-specific antigen (PSA) test. PSA is a protein that is made in the prostate. As you age, your prostate naturally produces more PSA. Abnormally high PSA levels may be caused by: ??? Prostate cancer. ??? An enlarged prostate (more content not included)... Normal [facility] Fish and Urine Cyt o ( Labs)on 04-01-2025 [facility] Method of Extraction Bladder Wash Normal [facility] Comment on above: Performed By: #### 1 [id number] #### [facility] Laboratory [address] [place] [address] [facility] Number of Jars 1 Invalid Interpretation Code [facility] Comment on above: Performed By: #### 1 [id number] #### [facility] [address] [place] [address] [facility] Specimen Bladder Wash Normal [facility] Comment on above: Performed By: #### 1 [id number] #### [facility] [address] [place] [address] [facility] Type of Service Technical Only Normal [facility] Comment on above: Performed By: #### 1 [id number] #### [facility] [address] [place] [address] Urology Office/Clinic Noteon 04-01-2025 Urology Office/Clinic Note Urology Office/Clinic Note Chief Complaint cystoscopy HPI Staff 59 yr old here for CYSTU. pt needs FISH/CYSTO Previous Dx: bladder cancer, elevated PSA, BPH with urinary obstruction, prostate nodule, kidney stone, duplicated renal collecting system, renal atrophy. PSA: 10/16/21 - 1.86 10/15/22 - 1.73 01/27/24 - 2.13 Current PSA ?? left vm for pt as reminder- no results found in [facility] or outside records Alfuzosin 10mg qd History of Present Illness Tests reviewed: reviewed UA, PSA, op note, oncology notes I have reviewed the previous health record information and history for this patient from external providers and Dr. Valdivia. I have reviewed and verified the staff HPI to be accurate for this encounter. Review of Systems PHQ Score Initial [...] See HPI. Physical Exam Vitals & Measurements T: 37 ???C(Temporal Artery) HR: 60(Peripheral) RR: 16 BP: 101/65 HT: 180 cm HT: 71 in WT: 62 kg WT: 136.686 lb BMI: 19.14 General Appearance: alert, no distress, well nourished, well developed male. Procedure Operative Information Anesthesia Type: Local Procedure: [...] Urethra is: Normal The Prostatic Urethra is: Bilobar obstruction. The Bladder: No tumors or stones. Trabeculated: None (0) The Ureteral orifices: Show efflux of clear urine Specimens Removed: Bladder wash sent for FISH and Cytology test Removal: Cystoscope is removed. The patient tolerated it well. Postoperative Information Patient is discharged home with antibiotic coverage. Follow up arranged. Assessment/Plan 1. Personal history of bladder cancer (Z85.51: Personal history of malignant neoplasm of bladder) - Uncle has hx of bladder and colon CA. Dx w/ Barker Syndrome. 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 Detrusor muscle is present and neg for involvement by tumor. - Cysto/FISH/cytology 10/22/22 - Cysto neg. Cytology suspicious for papillary urothelial neoplasm. FISH positive. - CT AP wo con 12/24/22 [facility] - Mild circumferential thickened and trabeculated appearance of the urinary bladder wall presumably related to the chronic urinary bladder outlet obstruction in combination with partial distention. - Cysto, rigid L ureteral dilation, L urs, L pyeloscopy, L renal wash for cytology, R rigid ureteral dilation, R urs, R pyeloscopy, and R renal wash for cytology 02/10/23. Renal washings neg. - Cysto/FISH/cytology 02/03/24 - Diffuse irritation. Retroflexion tumor adjacent to the bladder neck on pt's right side, measuring 2-3 cm. Cytology suspicious for high-grade. FISH positive. - TURBT 03/01/24 - High-grade papillary urothelial carcinoma. Focal superficial lamina propria invasion is noted. Muscle present and uninvolved. - BCG #6 (half doses) 05/25/24, required coude catheter. - BCG x 3 09/2024. - Last cysto 12/19/24 - Neg. Suspicious cytology, positive FISH. - BCG x6 01/2025 at [facility], required coude catheter. - Saw Dr. Andrade (oncology) 03/19/25 to discuss possibly starting immunotherapy (Keytruda), plan to f/u 3 wks with decision. Pt had 3 mos IO cysto to check for bladder tumor recurrence without complications today. Pt took prophylactic abx prior to procedure. Will send bladder wash specimen for FISH/cytol and call pt if positive. Cysto today was negative for recurrence. Follow up in 3 mos for surveillance cysto or sooner if needed. Pt understands and agrees with plan. -BCG x3 in Nov -Cont following w/ oncology, consider Keytruda 2. Elevated PSA (R97.20: Elevated prostate specific antigen [PSA]) PSA: 10/16/21 - 1.86 10/15/22 - 1.73 01/27/24 - 2.13 03/22/25 - 7.60 - TRUS/bx 2014 - Prostate MRI 12/03/22 - PI-RADS 5 lesion posterior L PZ mid base extending into midline 19 x 5 mm. No gross extracapsular extension. PI-RADS 4 posterior R PZ midline 13 x 11 mm. No gross extracapsular extension. Prostate volume 37 cc. - TRUS/bx 12/22/22 neg. - Prostate MRI 04/06/24 [facility] [place] - No significant change since prior study. Lesion posterior L PZ level of (more content not included)... Normal [facility] Comment on above: Result Comment: Elec tronically Signed By: Jarad VALDIVIA MD\.br\Date and Time Signed: 04/01/25 09:04 EDT\.br\Electronically Co-Signed By: Justyna García\.br\Date and Time Co-Signed: 04/01/25 09:04 EDT [facility] PSA, DIAGNOSTICon 03-22 Interpretation and review of laboratory results Abnormal [facility] PROSTATE SPECIFIC ANTIGEN DX 7.6 ng/mL High NINF - 4.00 ng/mL [facility] CBC W Auto Differential pane l (Bld)on 02-15-2025 Basophils (Bld) [#/Vol] 10*3/uL Normal <0.11 [facility] Comment on above: Order Comment: Speci men Type: BLOOD SPECIMENOrdering Facility: [facility] Address: [address] [place] [address] Performed By: #### 5 7021-8 ####[facility] [id number] [place] [address] Basophils/100 WBC (Bld) 0.2 % Normal [facility] Comment on above: Order Comment: Speci men Type: BLOOD SPECIMENOrdering Facility: [facility] Address: [address] [place] [address] Performed By: #### 5 7021-8 ####[facility] [id number] [place] [address] Differential cell count method Nom (Bld) Auto Normal [facility] Comment on above: Order Comment: Speci men Type: BLOOD SPECIMENOrdering Facility: [facility] Address: [address] [place] [address] Performed By: #### 5 7021-8 ####[facility] [id number] [place] [address] Eosinophils (Bld) [#/Vol] 10*3/uL Normal <0.46 [facility] Comment on above: Order Comment: Speci men Type: BLOOD SPECIMENOrdering Facility: [facility] Address: [address] [place] [address] Performed By: #### 5 7021-8 ####[facility] [id number] [place] [address] Eosinophils/100 WBC (Bld) 0.0 % Normal [facility] Comment on above: Order Comment: Speci men Type: BLOOD SPECIMENOrdering Facility: [facility] Address: [address] [place] [address] Performed By: #### 5 7021-8 ####[facility] [id number] [place] [address] Erythrocyte distribution width (RBC) [Ratio] 11.9 % Normal 11.5-15.0 [facility] Comment on above: Order Comment: Speci men Type: BLOOD SPECIMENOrdering Facility: [facility] Address: [address] [place] [address] Performed By: #### 5 7021-8 ####[facility] [id number] [place] [address] Hematocrit (Bld) [Volume fraction] 42.3 % Normal 39.0-51.0 [facility] Comment on above: Order Comment: Speci men Type: BLOOD SPECIMENOrdering Facility: [facility] Address: [address] [place] [address] Performed By: #### 5 7021-8 ####[facility] [id number] [place] [address] Hemoglobin (Bld) [Mass/Vol] 14.6 g/dL Normal 13.0-17.0 [facility] Comment on above: Order Comment: Speci men Type: BLOOD SPECIMENOrdering Facility: [facility] Address: [address] [place] [address] Performed By: #### 5 7021-8 ####[facility] [id number] [place] [address] Immature granulocytes (Bld) [#/Vol] 10*3/uL Normal <0.10 [facility] Comment on above: Order Comment: Speci men Type: BLOOD SPECIMENOrdering Facility: [facility] Address: [address] [place] [address] Performed By: #### 5 7021-8 ####[facility] [id number] [place] [address] Immature granulocytes/100 WBC (Bld) 0.3 % Normal [facility] Comment on above: Order Comment: Speci men Type: BLOOD SPECIMENOrdering Facility: [facility] Address: [address] [place] [address] Performed By: #### 5 7021-8 ####[facility] [id number] [place] [address] Lymphocytes (Bld) [#/Vol] 0.97 10*3/uL Low 1.00-4.00 [facility] Comment on above: Order Comment: Speci men Type: BLOOD SPECIMENOrdering Facility: [facility] Address: [address] [place] [address] Performed By: #### 5 7021-8 ####[facility] [id number] [place] [address] Lymphocytes/100 WBC (Bld) 15.6 % Normal [facility] Comment on above: Order Comment: Speci men Type: BLOOD SPECIMENOrdering Facility: [facility] Address: [address] [place] [address] Performed By: #### 5 7021-8 ####[facility] [id number] [place] [address] MCH (RBC) [Entitic mass] 29.9 pg Normal 26.0-34.0 [facility] Comment on above: Order Comment: Speci men Type: BLOOD SPECIMENOrdering Facility: [facility] Address: [address] [place] [address] Performed By: #### 5 7021-8 ####[facility] [id number] [place] [address] MCHC (RBC) [Mass/Vol] 34.5 g/dL Normal 30.5-36.0 [facility] Comment on above: Order Comment: Speci men Type: BLOOD SPECIMENOrdering Facility: [facility] Address: [address] [place] [address] Performed By: #### 5 7021-8 ####[facility] [id number] [place] [address] MCV (RBC) [Entitic vol] 86.5 fL Normal 80.0-100.0 [facility] Comment on above: Order Comment: Speci men Type: BLOOD SPECIMENOrdering Facility: [facility] Address: [address] [place] [address] Performed By: #### 5 7021-8 ####[facility] [id number] [place] [address] Monocytes (Bld) [#/Vol] 0.35 10*3/uL Normal <0.87 [facility] Comment on above: Order Comment: Speci men Type: BLOOD SPECIMENOrdering Facility: [facility] Address: [address] [place] [address] Performed By: #### 5 7021-8 ####[facility] [id number] [place] [address] Monocytes/100 WBC (Bld) 5.6 % Normal [facility] Comment on above: Order Comment: Speci men Type: BLOOD SPECIMENOrdering Facility: [facility] Address: [address] [place] [address] Performed By: #### 5 7021-8 ####[facility] [id number] [place] [address] Neutrophils (Bld) [#/Vol] 4.87 10*3/uL Normal 1.45-7.50 [facility] Comment on above: Order Comment: Speci men Type: BLOOD SPECIMENOrdering Facility: [facility] Address: [address] [place] [address] Performed By: #### 5 7021-8 ####[facility] [id number] [place] [address] Neutrophils/100 WBC (Bld) 78.3 % Normal [facility] Comment on above: Order Comment: Speci men Type: BLOOD SPECIMENOrdering Facility: [facility] Address: [address] [place] [address] Performed By: #### 5 7021-8 ####[facility] [id number] [place] [address] Nucleated RBC (Bld) [#/Vol] 10*3/uL Normal <0.01 [facility] Comment on above: Order Comment: Speci men Type: BLOOD SPECIMENOrdering Facility: [facility] Address: [address] [place] [address] Performed By: #### 5 7021-8 ####[facility] [id number] [place] [address] Nucleated RBC/100 WBC (Bld) [Ratio] 0.0 /100 WBC Normal [facility] Comment on above: Order Comment: Speci men Type: BLOOD SPECIMENOrdering Facility: [facility] Address: [address] [place] [address] Performed By: #### 5 7021-8 ####[facility] LABIA [id number] [place] [address] Platelet mean volume (Bld) [Entitic vol] 9.5 fL Normal 9.0-12.7 [facility] Comment on above: Order Comment: Speci men Type: BLOOD SPECIMENOrdering Facility: [facility] Address: [address] [place] [address] Performed By: #### 5 7021-8 ####[facility] LABIA [id number] [place] [address] Platelets (Bld) [#/Vol] 225 10*3/uL Normal 150-400 [facility] Comment on above: Order Comment: Speci men Type: BLOOD SPECIMENOrdering Facility: [facility] Address: [address] [place] [address] Performed By: #### 5 7021-8 ####[facility] LABIA [id number] [place] [address] RBC (Bld) [#/Vol] 4.89 10*6/uL Normal 4.20-6.00 [facility] Comment on above: Order Comment: Speci men Type: BLOOD SPECIMENOrdering Facility: [facility] Address: [address] [place] [address] Performed By: #### 5 7021-8 ####[facility] LABIA [id number] [place] [address] WBC (Bld) [#/Vol] 6.22 10*3/uL Normal 3.70-11.00 [facility] Comment on above: Order Comment: Speci men Type: BLOOD SPECIMENOrdering Facility: [facility] Address: [address] [place] [address] Performed By: #### 5 7021-8 ####[facility] LABIA [id number] [place] [address] CNOVSPon 02-15-2025 CNOVS Visit (SP) Office ([facility]) VENITA ROSENBERG ([id number]) 1965 M Date Time Provider Department 02/15/25 1:00 PM DARWIN QUINTEROS During your visit today, we recorded the following information about you: Temperature Pulse Respiration Blood pressure 98 degrees 95/minute 18/minute 118/80 Weight Height 60.1 kg 1.754 m Darwin Quinteros MD 02/15/2025 1:40 PM Signed PATIENT NAME: Venita Rosenberg CLINIC NO.: [id number] ATTENDING PHYSICIAN: Darwin Quinteros MD DATE OF SERVICE: 02/15/[address] Jarad Valdivia [address] [place] [facility] [id number] thank you for referring Venita Rosenberg for an opinion regarding h/o bladder cancer. Some of the elements of this note have been copied from my previous progress note dated 02/01/25. All the information has been reviewed carefully. CHIEF COMPLAINT: Bladder cancer HPI: Venita Rosenberg is a 59 year old year old male with h/o bladder cancer diagnosed in 2011 s/p TURBT. TURBT (03/02/24) - high grade papillary urothelial carcinoma. Muscularis propria negative for invasion. S/p 6 weekly BCG treatments in Apr 2024. Prostate biopsy (09/04/24)- Benign prostate tissue with focal chronic inflammation. Last cystoscopy was in Aug 2024. Normal bladder. Doing well No major complaints. No smoking Occasional alcohol. 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 Unremarkable. - Doing well - No major complaints. 02/15/25: - Missed last week BCG treatment as they were not able to put chowdhury catheter. - Doing well - No major complaints. Current Outpatient Medications Medication Sig alfuzosin SR (UROXATRAL) 10 mg 24 hr tablet Take 10 mg by mouth once daily. (Patient not taking: Reported on 02/01/2025) No current facility-administered medications for this visit. 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 Elevated prostate specific antigen (PSA) Hematuria Kidney stone Prostate nodule Renal atrophy PAST SURGICAL HISTORY Procedure Laterality Date CYSTOSCOPY x6 CYSTOSCOPY PAST SURGICAL HISTORY OF 03/01/2024 TURBT PAST SURGICAL HISTORY OF 12/22/2022 Transrectal needle biopsy of prostate PAST SURGICAL HISTORY OF 08/19/2015 Transrectal biopsy of prostate using ultrasound PAST SURGICAL HISTORY OF 05/30/2012 Cystoscopy with removal of ureteric stent PAST SURGICAL HISTORY OF 05/18/2012 Cystoscopy and transurethral resection of bladder tumor PAST SURGICAL HISTORY OF Tonsillectomy REMOVAL GALLBLADDER FAMILY HISTORY Problem Relation Age of Onset Breast Cancer Mother Cervical Cancer Mother Cervical Cancer Sister Breast Cancer Sister Social History Tobacco Use Smoking status: Former Types: Cigarettes Smokeless tobacco: Current Vaping Use Vaping status: Never Used Substance Use Topics Alcohol use: Never Drug use: Never REVIEW OF SYSTEMS GENERAL: No weight loss, malaise or fevers. No night sweats. HEENT: Negative for headaches, No changes in hearing or vision, no nose bleeds or other nasal problems. RESPIRATORY: Negative for cough, wheezing and shortness of breath CARDIOVASCULAR: Negative for chest pain, leg swelling and palpitations GI: Negative for abdominal discomfort, blood in stools or black stools and change in bowel habits : Negative for dysuria, frequency and incontinence MUSCULOSKELETAL: Negative for joint pain or swelling, back pain, and muscle pain. SKIN: Negative for lesions, rash, and itching. HEMATOLOGY/LYMPHOLOGY Negative for prolonged bleeding, bruising easily, and swollen nodes. NEURO: Negative for numbness or tingling of hands/feet. No weakness. PHYSICAL EXAMINATION: There were no vitals taken for this visit. There were no vitals taken for this visit. No data found for this vital: Wt General appearance:ECOG PERFORMANCE STATUS: 0- Fully active, able to carry on all pre-disease performance w/o restriction. Patient in NAD. Skin: Skin color, texture, turgor normal. No rashes or lesions. Eyes: Anicteric sclera. Pupils are equally round and reactive to light. Extraocular movements are intact. Breast: No palpable breast masses. No nipple change or discharge. Lymph Nodes: No cervical, supraclavicular, axillary or inguinal adenopathy. Oropharynx: Lips, mucosa, and tongue normal. Back: No pain to percussion. Negative SLR test Lungs clear to auscultation, No wheezing or rhonchi Heart: RRR without murmur, gallop, or rubs. Abdomen soft, non-tender. No masses, organomegaly Extremities: No deformities. No edema Neuro: Gait and speech normal. Reflexes normal and symmetric. Muscular strength intact. Sensation grossly intact. (more content not included)... Normal [facility] Comprehensive metabolic 2000 panelon 02-15-2025 Albumin [Mass/Vol] 4.1 g/dL Normal 3.9-4.9 [facility] Comment on above: Order Comment: Speci men Type: BLOOD SPECIMENOrdering Facility: [facility] Address: [address] [place] [address] Performed By: #### 2 4323-8 ####[facility] [id number] [place] [address] ALP [Catalytic activity/Vol] 81 U/L Normal 38-113 [facility] Comment on above: Order Comment: Speci men Type: BLOOD SPECIMENOrdering Facility: [facility] Address: [address] [place] [address] Performed By: #### 2 4323-8 ####[facility]CL[facility] [id number] [place] [address] ALT [Catalytic activity/Vol] 8 U/L Low 10-54 [facility] Comment on above: Order Comment: Speci men Type: BLOOD SPECIMENOrdering Facility: [facility] Address: [address] [place] [address] Performed By: #### 2 4323-8 ####[facility]CL[facility] [id number] [place] [address] Anion gap [Moles/Vol] 13 mmol/L Normal 8-15 [facility] Comment on above: Order Comment: Speci men Type: BLOOD SPECIMENOrdering Facility: [facility] Address: [address] [place] [address] Performed By: #### 2 4323-8 ####[facility] [id number] [place] [address] AST [Catalytic activity/Vol] 11 U/L Low 14-40 [facility] Comment on above: Order Comment: Speci men Type: BLOOD SPECIMENOrdering Facility: [facility] Address: [address] [place] [address] Performed By: #### 2 4323-8 ####[facility] [id number] [place] [address] Bilirubin [Mass/Vol] 0.5 mg/dL Normal 0.2-1.3 [facility] Comment on above: Order Comment: Speci men Type: BLOOD SPECIMENOrdering Facility: [facility] Address: [address] [place] [address] Performed By: #### 2 4323-8 ####[facility]CL[facility] [id number] [place] [address] Calcium [Mass/Vol] 9.5 mg/dL Normal 8.5-10.2 [facility] Comment on above: Order Comment: Speci men Type: BLOOD SPECIMENOrdering Facility: [facility] Address: [address] [place] [address] Performed By: #### 2 4323-8 ####[facility]CL[facility] [id number] [place] [address] Chloride [Moles/Vol] 104 mmol/L Normal 98-107 [facility] Comment on above: Order Comment: Speci men Type: BLOOD SPECIMENOrdering Facility: [facility] Address: [address] [place] [address] Performed By: #### 2 4323-8 ####[facility]CL[facility] [id number] [place] [address] CO2 [Moles/Vol] 26 mmol/L Normal 22-30 [facility] Comment on above: Order Comment: Speci men Type: BLOOD SPECIMENOrdering Facility: [facility] Address: [address] [place] [address] Performed By: #### 2 4323-8 ####[facility]CL[facility] [id number] [place] [address] Creatinine [Mass/Vol] 0.99 mg/dL Normal 0.73-1.22 [facility] Comment on above: Order Comment: Suzanne flanagan Type: BLOOD SPECIMENOrdering Facility: [facility] Address: [address] [place] [address] Performed By: #### 2 4323-8 ####[facility]CL[facility] [id number] [place] [address] Creatinine and Glomerular filtration rate.predicted panel (S/P/Bld) 88 mL/min/1.73m??? Normal >=60 [facility] Comment on above: Order Comment: Suzanne flanagan Type: BLOOD SPECIMENOrdering Facility: [facility] Address: [address] [place] [address] Result Comment: Lee Ann mated Glomerular Filtration Rate (eGFR) is calculated using the 2020 CKD-EPI creatinine equation. This equation utilizes serum creatinine, sex, and age as parameters. The creatinine assay has traceable calibration to isotope dilution-mass spectrometry. Refer to KDIGO guidelines for clinical interpretation. In patients with unstable renal function, e.g. those with acute kidney injury, the eGFR may not accurately reflect actual GFR. Performed By: #### 2 4323-8 ####[facility] LABCL[facility] [id number] [place] [address] Glucose [Mass/Vol] 101 mg/dL High 74-99 [facility] Comment on above: Order Comment: Suzanne flanagan Type: BLOOD SPECIMENOrdering Facility: [facility] Address: [address] [place] [address] Result Comment: The [place] Diabetes Association (ADA) provides guidance for cutoff [...] Standards of Medical Care in Diabetes 2016, [place] [employer]. Diabetes Care. 2016.39(Suppl 1). Performed By: #### 2 4323-8 ####[facility]CL[facility] [id number] [place] [address] Potassium [Moles/Vol] 4.2 mmol/L Normal 3.7-5.1 [facility] Comment on above: Order Comment: Speci men Type: BLOOD SPECIMENOrdering Facility: [facility] Address: [address] [place] [address] Performed By: #### 2 4323-8 ####[facility]CL[facility] [id number] [place] [address] Protein [Mass/Vol] 6.6 g/dL Normal 6.3-8.0 [facility] Comment on above: Order Comment: Speci men Type: BLOOD SPECIMENOrdering Facility: [facility] Address: [address] [place] [address] Performed By: #### 2 4323-8 ####[facility]CL[facility] [id number] [place] [address] Sodium [Moles/Vol] 143 mmol/L Normal 136-144 [facility] Comment on above: Order Comment: Speci men Type: BLOOD SPECIMENOrdering Facility: [facility] Address: [address] [place] [address] Performed By: #### 2 4323-8 ####[facility] LABCLIA [id number] [place] [address] Urea nitrogen [Mass/Vol] 14 mg/dL Normal 9-24 [facility] Comment on above: Order Comment: Speci men Type: BLOOD SPECIMENOrdering Facility: [facility] Address: [address] [place] [address] Performed By: #### 2 4323-8 ####[facility] LABCLIA [id number] [place] [address] Concepcion 02-13-2025 CNPN Telephone (HEMASA) VENITA ROSENBERG ([id number]) 1965 M Date Time Provider Department 02/13/25 DARWIN QUINTEROS During your visit today, we recorded the following information about you: Luana Le MA 02/13/2025 1:[address] labs for treatment on 02/15. Luana Le MA Allergies As of Date: 02/13/2025 (No Known Allergies) Date Reviewed: 02/13/2025 Reviewed by: Wily Byrne APRN.HEARING AID TECHNICIAN - Fully Assessed Reason for Visit: Lab Orders [168] Primary Visit Diagnosis:Malignant neoplasm of urinary bladder, unspecified site (HCC) [C67.9] Other Visit Diagnosis:Dysuria [R30.0] Order(s):COMPREHENSIVE METABOLIC PANEL [SQCMP] Order #: [id number] FUTURE COMPLETE BLOOD COUNT AND DIFFERENTIAL [SQCBCDIF] Order #: [id number] FUTURE UA DIP, URINE (POC) [[id number]] Order #: [id number] FUTURE Prescriptions as of 02/14/2025 - alfuzosin SR (UROXATRAL) 10 mg 24 hr tablet Take 10 mg by mouth once daily. Problem List As Of Date 02/13/2025 Noted Resolved Bladder cancer (HCC) [C67.9] 10/19/2024 Encounter Status:Closed by WILY BYRNE on 02/13/25 [facility] Concepcion 02-08-2025 CNPN Telephone (HEMTSA) VENITA ROSENBERG ([id number]) 1965 M Date Time Provider Department 02/08/25 YAIMA SINCLAIR During your visit today, we recorded the following information about you: Yaima Sinclair, RN 02/08/2025 2:20 PM Signed Pt here for BCG 2/3 BCG tx, unable to place catheter after 4 attempts with coude catheter. AV notified, pt to come back as scheduled in 1 week to try again. Pt will take his Flomax as directed in the meantime. PSS: Please add pt the tx schedule on Thursday 02/22 for his 3rd BCG tx. Yaima Sinclair RN Darwin Quinteros MD 02/08/2025 2:32 PM Signed EB walker. Thank you Elsi Driver 02/11/2025 8:19 AM Signed Patient is scheduled for BCG 02/22 at 1pm. Already scheduled for appts on 02/15, will notifiy patient on 02/15 Allergies As of Date: 02/08/2025 (No Known Allergies) Date Reviewed: 02/01/2025 Reviewed by: Angelique Finney MA - Fully Assessed Reason for Visit: Patient Update [1234] Prescriptions as of 02/22/2025 - alfuzosin SR (UROXATRAL) 10 mg 24 hr tablet Take 10 mg by mouth once daily. Problem List As Of Date 02/08/2025 Noted Resolved Bladder cancer (HCC) [C67.9] 10/19/2024 Encounter Status:Closed by YAIMA SINCLAIR on 02/22/25 Normal [facility] CBC W Auto Differential pane l (Bld)on 02-01-2025 Basophils (Bld) [#/Vol] 10*3/uL Normal <0.11 [facility] Comment on above: Order Comment: Speci men Type: BLOOD SPECIMENOrdering Facility: [facility] Address: [address] [place] [address] [place] [address] Performed By: #### 5 7021-8 ####[facility] LABCLIA [id number] [place] [address] Basophils/100 WBC (Bld) 0.4 % Normal [facility] Comment on above: Order Comment: Speci men Type: BLOOD SPECIMENOrdering Facility: [facility] Address: [address] [place] [address] Performed By: #### 5 7021-8 ####[facility] LABCLIA [id number] [place] [address] Differential cell count method Nom (Bld) Auto Normal [facility] Comment on above: Order Comment: Speci men Type: BLOOD SPECIMENOrdering Facility: [facility] Address: [address] [place] [address] Performed By: #### 5 7021-8 ####[facility] LABCLIA [id number] [place] [address] Eosinophils (Bld) [#/Vol] 10*3/uL Normal <0.46 [facility] Comment on above: Order Comment: Speci men Type: BLOOD SPECIMENOrdering Facility: [facility] Address: [address] [place] [address] Performed By: #### 5 7021-8 ####[facility] LABCLIA [id number] [place] [address] Eosinophils/100 WBC (Bld) 0.0 % Normal [facility] Comment on above: Order Comment: Speci men Type: BLOOD SPECIMENOrdering Facility: [facility] Address: [address] [place] [address] Performed By: #### 5 7021-8 ####[facility] LABIA [id number] [place] [address] Erythrocyte distribution width (RBC) [Ratio] 11.9 % Normal 11.5-15.0 [facility] Comment on above: Order Comment: Speci men Type: BLOOD SPECIMENOrdering Facility: [facility] Address: [address] [place] [address] Performed By: #### 5 7021-8 ####[facility] LABCL[facility] [id number] [place] [address] Hematocrit (Bld) [Volume fraction] 44.8 % Normal 39.0-51.0 [facility] Comment on above: Order Comment: Speci men Type: BLOOD SPECIMENOrdering Facility: [facility] Address: [address] [place] [address] Performed By: #### 5 7021-8 ####[facility] LABCLIA [id number] [place] [address] Hemoglobin (Bld) [Mass/Vol] 15.3 g/dL Normal 13.0-17.0 [facility] Comment on above: Order Comment: Speci men Type: BLOOD SPECIMENOrdering Facility: [facility] Address: [address] [place] [address] Performed By: #### 5 7021-8 ####[facility] LABCLIA [id number] [place] [address] Immature granulocytes (Bld) [#/Vol] 10*3/uL Normal <0.10 [facility] Comment on above: Order Comment: Speci men Type: BLOOD SPECIMENOrdering Facility: [facility] Address: [address] [place] [address] Performed By: #### 5 7021-8 ####[facility] LABCLIA [id number] [place] [address] Immature granulocytes/100 WBC (Bld) 0.2 % Normal [facility] Comment on above: Order Comment: Speci men Type: BLOOD SPECIMENOrdering Facility: [facility] Address: [address] [place] [address] Performed By: #### 5 7021-8 ####[facility] LABCLIA [id number] [place] [address] Lymphocytes (Bld) [#/Vol] 1.35 10*3/uL Normal 1.00-4.00 [facility] Comment on above: Order Comment: Speci men Type: BLOOD SPECIMENOrdering Facility: [facility] Address: [address] [place] [address] Performed By: #### 5 7021-8 ####[facility] LABCLIA [id number] [place] [address] Lymphocytes/100 WBC (Bld) 28.4 % Normal [facility] Comment on above: Order Comment: Speci men Type: BLOOD SPECIMENOrdering Facility: [facility] Address: [address] [place] [address] Performed By: #### 5 7021-8 ####[facility] LABCLIA [id number] [place] [address] MCH (RBC) [Entitic mass] 30.2 pg Normal 26.0-34.0 [facility] Comment on above: Order Comment: Speci men Type: BLOOD SPECIMENOrdering Facility: [facility] Address: [address] [place] [address] Performed By: #### 5 7021-8 ####[facility] LABCLIA [id number] [place] [address] MCHC (RBC) [Mass/Vol] 34.2 g/dL Normal 30.5-36.0 [facility] Comment on above: Order Comment: Speci men Type: BLOOD SPECIMENOrdering Facility: [facility] Address: [address] [place] [address] Performed By: #### 5 7021-8 ####[facility] LABCLIA [id number] [place] [address] MCV (RBC) [Entitic vol] 88.4 fL Normal 80.0-100.0 [facility] Comment on above: Order Comment: Speci men Type: BLOOD SPECIMENOrdering Facility: [facility] Address: [address] [place] [address] Performed By: #### 5 7021-8 ####[facility] LABCLIA [id number] [place] [address] Monocytes (Bld) [#/Vol] 0.38 10*3/uL Normal <0.87 [facility] Comment on above: Order Comment: Speci men Type: BLOOD SPECIMENOrdering Facility: [facility] Address: [address] [place] [address] Performed By: #### 5 7021-8 ####[facility] LABCLIA [id number] [place] [address] Monocytes/100 WBC (Bld) 8.0 % Normal [facility] Comment on above: Order Comment: Speci men Type: BLOOD SPECIMENOrdering Facility: [facility] Address: [address] [place] [address] Performed By: #### 5 7021-8 ####[facility] LABCLIA [id number] [place] [address] Neutrophils (Bld) [#/Vol] 2.99 10*3/uL Normal 1.45-7.50 [facility] Comment on above: Order Comment: Speci men Type: BLOOD SPECIMENOrdering Facility: [facility] Address: [address] [place] [address] Performed By: #### 5 7021-8 ####[facility] LABCLIA [id number] [place] [address] Neutrophils/100 WBC (Bld) 63.0 % Normal [facility] Comment on above: Order Comment: Speci men Type: BLOOD SPECIMENOrdering Facility: [facility] Address: [address] [place] [address] Performed By: #### 5 7021-8 ####[facility] LABCLIA [id number] [place] [address] Nucleated RBC (Bld) [#/Vol] 10*3/uL Normal <0.01 [facility] Comment on above: Order Comment: Speci men Type: BLOOD SPECIMENOrdering Facility: [facility] Address: [address] [place] [address] Performed By: #### 5 7021-8 ####[facility] LABCLIA [id number] [place] [address] Nucleated RBC/100 WBC (Bld) [Ratio] 0.0 /100 WBC Normal [facility] Comment on above: Order Comment: Speci men Type: BLOOD SPECIMENOrdering Facility: [facility] Address: [address] [place] [address] Performed By: #### 5 7021-8 ####[facility] LABCLIA [id number] [place] [address] Platelet mean volume (Bld) [Entitic vol] 9.9 fL Normal 9.0-12.7 [facility] Comment on above: Order Comment: Speci men Type: BLOOD SPECIMENOrdering Facility: [facility] Address: [address] [place] [address] Performed By: #### 5 7021-8 ####[facility] LABCLIA [id number] [place] [address] Platelets (Bld) [#/Vol] 202 10*3/uL Normal 150-400 [facility] Comment on above: Order Comment: Speci men Type: BLOOD SPECIMENOrdering Facility: [facility] Address: [address] [place] [address] Performed By: #### 5 7021-8 ####[facility] LABCLIA [id number] [place] [address] RBC (Bld) [#/Vol] 5.07 10*6/uL Normal 4.20-6.00 [facility] Comment on above: Order Comment: Speci men Type: BLOOD SPECIMENOrdering Facility: [facility] Address: [address] [place] [address] Performed By: #### 5 7021-8 ####[facility] LABCLIA [id number] [place] [address] WBC (Bld) [#/Vol] 4.75 10*3/uL Normal 3.70-11.00 [facility] Comment on above: Order Comment: Speci men Type: BLOOD SPECIMENOrdering Facility: [facility] Address: [address] [place] [address] Performed By: #### 5 7021-8 ####[facility] LABCLIA [id number] [place] [address] [facility] CBC W AUTO DIFF BLDon Basophils/100 WBC (Bld) 0.4 % [facility] BASOPHILS # BLD AUTO <0.03 [facility] DIFFERENTIAL METHOD BLD Auto [facility] EOSINOPHIL # BLD AUTO <0.03 [facility] LYMPHOCYTES # BLD AUTO 1.[address] [facility] MONOCYTES # BLD AUTO 0.38 [facility] NEUTROPHILS # BLD AUTO 2.[address] [facility] NRBC # BLD AUTO <0.01 [facility] NRBC/100 WBC BLD-RTO 0 /[address] [facility] PLATELET # BLD AUTO [address] [facility] PMV BLD AUTO 9.9 fL 9.0 - 12.[address] [facility] WBC # BLD AUTO 4.[address] [facility] Eosinophils/100 WBC (Bld) 0 % [facility] Erythrocyte distribution width (RBC) [Ratio] 11.9 % 11.5 - 15.0 % [facility] Hematocrit (Bld) [Volume fraction] 44.8 % 39.0 - 51.0 % [facility] Hemoglobin (Bld) [Mass/Vol] 15.3 g/dL 13.0 - 17.0 g/dL [facility] IMM GRANULOCYTES # BLD AUTO <0.03 [facility] IMM GRANULOCYTES/LEUK NFR BLD AUTO 0.2 % [facility] Lymphocytes/100 WBC (Bld) 28.4 % [facility] MCH (RBC) [Entitic mass] 30.2 pg 26.0 - 34.[address] [facility] MCHC (RBC) [Mass/Vol] 34.2 g/dL 30.5 - 36.0 g/dL [facility] MCV (RBC) [Entitic vol] 88.4 fL 80.0 - 100.[address] [facility] Monocytes/100 WBC (Bld) 8 % [facility] Neutrophils/100 WBC (Bld) 63 % [facility] RBC (Bld) [#/Vol] 5.07 10*6/uL 4.20 - 6.00 m/uL [facility] Specimen Type: BLOOD SPECIMEN [facility] Address: [facility] [place] [address] Original Ordering Provider: CAROLINE LEROY [facility] CNNURSEon 02-01-2025 [facility] Visit (HEMASA) VENITA ROSENBERG ([id number]) 1965 M Date Time Provider Department 02/01/25 2:00 PM [place] NURSE KAI CLARKE HEMTENZIN During your visit today, we recorded the following information about you: Mary Alexis MA 02/01/2025 1:41 PM Signed UA performed as ordered for TX. Mary Alexis MA Referring Provider: DARWIN QUINTEROS [[id number]] Allergies As of Date: 02/01/2025 (No Known Allergies) Date Reviewed: 02/01/2025 Reviewed by: Angelique Finney MA - Fully Assessed Primary Visit Diagnosis:Malignant neoplasm of urinary bladder, unspecified site (HCC) [C67.9] Order(s):UA DIP, URINE (POC) [[id number]] Order #: [id number]. #:[id number] -LAB Prescriptions as of 02/01/2025 - alfuzosin SR (UROXATRAL) 10 mg 24 hr tablet Take 10 mg by mouth once daily. Facility-Administered Medications as of 02/01/2025 - lidocaine urojet 2 % 11 mL topical gel (GLYDO) - bcg (JOSE DANIEL BCG) 50 mg in NaCl (PF) 0.9% 50 mL - NaCl 0.9% iv infusion - diphenhydrAMINE 50 mg injection (BENADRYL) - hydrocortisone sodium succinate (PF) 100 mg injection (Solu-CORTEF) - EPINEPHrine 1 mg/mL (1 mL) 0.3 mg injection Problem List As Of Date 02/01/2025 Noted Resolved Bladder cancer (HCC) [C67.9] 10/19/2024 Encounter Status:Closed by MARY ALEXIS on 02/01/25 [facility] CNOVSPon 02-01-2025 CNOVSP Visit (SP) Office ( EMASA) VENITA ROSENBERGJorge Alberto ([id number]) 1965 M Date Time Provider Department 02/01/25 1:00 PM DARWIN QUINTEROS During your visit today, we recorded the following information about you: Temperature Pulse Respiration Blood pressure 97.3 degrees 57/minute 16/minute 124/79 Weight Height 61.3 kg 1.754 m Darwin Quinteros MD 02/01/2025 1:29 PM Signed PATIENT NAME: Venita Rosenberg CLINIC NO.: [id number] ATTENDING PHYSICIAN: Darwin Quinteros MD DATE OF SERVICE: 02/01/[address] Jarad Valdivia [address] [facility] [address] thank you for referring Venita Rosenberg for an opinion regarding h/o bladder cancer. Some of the elements of this note have been copied from my previous progress note dated 10/26/24. All the information has been reviewed carefully. CHIEF COMPLAINT: Bladder cancer HPI: Venita Rosenberg is a 59 year old year old male with h/o bladder cancer diagnosed in 2011 s/p TURBT. TURBT (03/02/24) - high grade papillary urothelial carcinoma. Muscularis propria negative for invasion. S/p 6 weekly BCG treatments in Apr 2024. Prostate biopsy (09/04/24)- Benign prostate tissue with focal chronic inflammation. Last cystoscopy was in Aug 2024. Normal bladder. Doing well No major complaints. No smoking Occasional alcohol. 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 Unremarkable. - Doing well - No major complaints. Current Outpatient Medications Medication Sig alfuzosin SR (UROXATRAL) 10 mg 24 hr tablet Take 10 mg by mouth once daily. (Patient not taking: Reported on 02/01/2025) No current facility-administered medications for this visit. 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 Elevated prostate specific antigen (PSA) Hematuria Kidney stone Prostate nodule Renal atrophy PAST SURGICAL HISTORY Procedure Laterality Date CYSTOSCOPY x6 CYSTOSCOPY PAST SURGICAL HISTORY OF 03/01/2024 TURBT PAST SURGICAL HISTORY OF 12/22/2022 Transrectal needle biopsy of prostate PAST SURGICAL HISTORY OF 08/19/2015 Transrectal biopsy of prostate using ultrasound PAST SURGICAL HISTORY OF 05/30/2012 Cystoscopy with removal of ureteric stent PAST SURGICAL HISTORY OF 05/18/2012 Cystoscopy and transurethral resection of bladder tumor PAST SURGICAL HISTORY OF Tonsillectomy REMOVAL GALLBLADDER FAMILY HISTORY Problem Relation Age of Onset Breast Cancer Mother Cervical Cancer Mother Cervical Cancer Sister Breast Cancer Sister Social History Tobacco Use Smoking status: Former Types: Cigarettes Smokeless tobacco: Current Vaping Use Vaping status: Never Used Substance Use Topics Alcohol use: Never Drug use: Never REVIEW OF SYSTEMS GENERAL: No weight loss, malaise or fevers. No night sweats. HEENT: Negative for headaches, No changes in hearing or vision, no nose bleeds or other nasal problems. RESPIRATORY: Negative for cough, wheezing and shortness of breath CARDIOVASCULAR: Negative for chest pain, leg swelling and palpitations GI: Negative for abdominal discomfort, blood in stools or black stools and change in bowel habits : Negative for dysuria, frequency and incontinence MUSCULOSKELETAL: Negative for joint pain or swelling, back pain, and muscle pain. SKIN: Negative for lesions, rash, and itching. HEMATOLOGY/LYMPHOLOGY Negative for prolonged bleeding, bruising easily, and swollen nodes. NEURO: Negative for numbness or tingling of hands/feet. No weakness. PHYSICAL EXAMINATION: BP 124/79 Pulse (!) 57 Temp 36.3 ?C (97.3 ?F) (Temporal) Resp 16 Ht 175.4 cm (5' 9.06 ) Wt 61.3 kg (135 lb 2.3 oz) SpO2 99% BMI 19.93 kg/m? There were no vitals taken for this visit. No data found for this vital: Wt General appearance:ECOG PERFORMANCE STATUS: 0- Fully active, able to carry on all pre-disease performance w/o restriction. Patient in NAD. Skin: Skin color, texture, turgor normal. No rashes or lesions. Eyes: Anicteric sclera. Pupils are equally round and reactive to light. Extraocular movements are intact. Breast: No palpable breast masses. No nipple change or discharge. Lymph Nodes: No cervical, supraclavicular, axillary or inguinal adenopathy. Oropharynx: Lips, mucosa, and tongue normal. Back: No pain to percussion. Negative SLR test Lungs clear to auscultation, No wheezing or rhonchi Heart: RRR without murmur, gallop, or rubs. Abdomen soft, non-tender. No masses, organomegaly Extremities: No deformities. No edema Neuro: Gait and speech normal. Reflexes normal and symmetric. Muscular strength intact. Sensation grossly intact. Rectal: Deferre (more content not included)... Normal [facility] Comprehensive metabolic 2000 panelon 02-01-2025 Albumin [Mass/Vol] 4.1 g/dL Normal 3.9-4.9 [facility] Comment on above: Order Comment: Speci men Type: BLOOD SPECIMENOrdering Facility: [facility] Address: [address] [place] [address] Performed By: #### 2 4323-8 ####[facility] LABCLIA [id number] [place] [address] ALP [Catalytic activity/Vol] 81 U/L Normal 38-113 [facility] Comment on above: Order Comment: Speci men Type: BLOOD SPECIMENOrdering Facility: [facility] Address: [address] [place] [address] Performed By: #### 2 4323-8 ####[facility] LABCLIA [id number] [place] [address] ALT [Catalytic activity/Vol] 11 U/L Normal 10-54 [facility] Comment on above: Order Comment: Speci men Type: BLOOD SPECIMENOrdering Facility: [facility] Address: [address] [place] [address] Performed By: #### 2 4323-8 ####[facility] LABCLIA [id number] [place] [address] Anion gap [Moles/Vol] 8 mmol/L Normal 8-15 [facility] Comment on above: Order Comment: Speci men Type: BLOOD SPECIMENOrdering Facility: [facility] Address: [address] [place] [address] Performed By: #### 2 4323-8 ####[facility] LABCLIA [id number] [place] [address] AST [Catalytic activity/Vol] 12 U/L Low 14-40 [facility] Comment on above: Order Comment: Speci men Type: BLOOD SPECIMENOrdering Facility: [facility] Address: [address] [place] [address] Performed By: #### 2 4323-8 ####[facility] LABCLIA [id number] [place] [address] Bilirubin [Mass/Vol] 0.6 mg/dL Normal 0.2-1.3 [facility] Comment on above: Order Comment: Speci men Type: BLOOD SPECIMENOrdering Facility: [facility] Address: [address] [place], [place] [address] Performed By: #### 2 4323-8 ####[facility] LABCLIA [id number] [place] [address] Calcium [Mass/Vol] 9.4 mg/dL Normal 8.5-10.2 [facility] Comment on above: Order Comment: Speci men Type: BLOOD SPECIMENOrdering Facility: [facility] Address: [address] [place] [address] Performed By: #### 2 4323-8 ####[facility] LABCLIA [id number] [place] [address] Chloride [Moles/Vol] 104 mmol/L Normal 98-107 [facility] Comment on above: Order Comment: Speci men Type: BLOOD SPECIMENOrdering Facility: [facility] Address: [address] [place] [address] Performed By: #### 2 4323-8 ####[facility] LABCLIA [id number] [place] [address] CO2 [Moles/Vol] 27 mmol/L Normal 22-30 [facility] Comment on above: Order Comment: Speci men Type: BLOOD SPECIMENOrdering Facility: [facility] Address: [address] [place] [address] Performed By: #### 2 4323-8 ####[facility] LABCLIA [id number] [place] [address] Creatinine [Mass/Vol] 0.95 mg/dL Normal 0.73-1.22 [facility] Comment on above: Order Comment: Speci men Type: BLOOD SPECIMENOrdering Facility: [facility] Address: [address] [place] [address] Performed By: #### 2 4323-8 ####[facility] LABCLIA [id number] [place] [address] Creatinine and Glomerular filtration rate.predicted panel (S/P/Bld) 92 mL/min/1.73m??? Normal >=60 [facility] Comment on above: Order Comment: Speci men Type: BLOOD SPECIMENOrdering Facility: [facility] Address: [address] [place] [address] Result Comment: Lee Ann mated Glomerular Filtration Rate (eGFR) is calculated using the 2020 CKD-EPI creatinine equation. This equation utilizes serum creatinine, sex, and age as parameters. The creatinine assay has traceable calibration to isotope dilution-mass spectrometry. Refer to KDIGO guidelines for clinical interpretation. In patients with unstable renal function, e.g. those with acute kidney injury, the eGFR may not accurately reflect actual GFR. Performed By: #### 2 4323-8 ####[facility] LABCLIA [id number] [place] [address] Glucose [Mass/Vol] 115 mg/dL High 74-99 [facility] Comment on above: Order Comment: Speci men Type: BLOOD SPECIMENOrdering Facility: [facility] Address: [address] [place] [address] Result Comment: The [place] Diabetes Association (ADA) provides guidance for cutoff [...] Standards of Medical Care in Diabetes 2016, [place] [employer] Association. Diabetes Care. 2016.39(Suppl 1). Performed By: #### 2 4323-8 ####[facility] LABCLIA [id number] [place] [address] Potassium [Moles/Vol] 4.1 mmol/L Normal 3.7-5.1 [facility] Comment on above: Order Comment: Tramainei panchito Type: BLOOD SPECIMENOrdering Facility: [facility] Address: [address] [place] [address] Performed By: #### 2 4323-8 ####[facility] LABCLIA [id number] [place] [address] Protein [Mass/Vol] 6.9 g/dL Normal 6.3-8.0 [facility] Comment on above: Order Comment: Speci men Type: BLOOD SPECIMENOrdering Facility: [facility] Address: [address] [place] [address] Performed By: #### 2 4323-8 ####[facility] LABCLIA [id number] [place] [address] Sodium [Moles/Vol] 139 mmol/L Normal 136-144 [facility] Comment on above: Order Comment: Speci men Type: BLOOD SPECIMENOrdering Facility: [facility] Address: [address] [place], [place] [address] Performed By: #### 2 4323-8 ####[facility] LABCLIA [id number] [place] [address] Urea nitrogen [Mass/Vol] 13 mg/dL Normal 9-24 [facility] Comment on above: Order Comment: Speci men Type: BLOOD SPECIMENOrdering Facility: [facility] Address: [address] [place] [address] Performed By: #### 2 4323-8 ####[facility] LABCLIA [id number] [place] [address] UA DIP, URINE (POC)on 2024 BILIRUBIN UA (POCT) Negative Negative [facility] CLARITY UA (POCT) Clear [facility] COLOR UA (POCT) Yellow [facility] GLUCOSE UA (POCT) Negative Negative mg/dL [facility] Hemoglobin Ql (U) Negative Negative [facility] KETONE UA (POCT) Negative Negative mg/dL [facility] LEUKOCYTES UA (POCT) Negative Negative [facility] NITRITE UA (POCT) Negative Negative [facility] PH UA (POCT) 6 4.5 - 8.0 [facility] Protein Ql (U) Negative Negative mg/dL [facility] SPECIFIC GRAVITY UA (POCT) 1.02 1.005 - 1.030 [facility] UROBILINOGEN UA (POCT) 0.2 Gracy l E.U./dL [facility] Location:[facility], [address] , [place], [place], [address] [facility] POINT OF CARE [facility] CNPNon 01-29-2025 [facility] Telephone (HEMASA) VENITA ROSENBERG ([id number]) 1965 M Date Time Provider Department 01/29/25 NELIAFTABDARWIN HEMTENZIN During your visit today, we recorded the following information about you: Luana Le MA 01/29/2025 1:[address] lab orders for treatment on 02/01. Thanks! Luana Le MA Allergies As of Date: 01/29/2025 (No Known Allergies) Date Reviewed: 01/29/2025 Reviewed by: Caroline Toledo PA-C - Fully Assessed Reason for Visit: Lab Orders [168] Primary Visit Diagnosis:Malignant neoplasm of urinary bladder, unspecified site (HCC) [C67.9] Order(s):COMPREHENSIVE METABOLIC PANEL [SQCMP] Order #: [id number] FUTURE COMPLETE BLOOD COUNT AND DIFFERENTIAL [SQCBCDIF] Order #: [id number] FUTURE Prescriptions as of 01/29/2025 - alfuzosin SR (UROXATRAL) 10 mg 24 hr tablet Take 10 mg by mouth once daily. Problem List As Of Date 01/29/2025 Noted Resolved Bladder cancer (HCC) [C67.9] 10/19/2024 Encounter Status:Closed by LUANA LE [facility]29/25 [facility] Reminders From: Anna Sigala To: LEENA Valdivia; Sent: 09/17/2024 09:43:08 EST Show up: 12/25/2024 09:43:00 EDT Subject: cysto/fish/cytol Due Date/Time: 01/21/2025 09:43:00 EDT Reminder/Recall Patient is due in February 2025 for 3 month cysto/fish/cytol, bt ck Patient sched for 03/25/25, [facility] Normal [facility] Pathology study report docum entOrdered By: Steven Costello on 01-16-2025 Pathology study [facility] Other Phone: Adrien 01-14-2025 L ------- Specimen: [id number] Received: 01/14/25 Status: [place] Hicks Num: [id number] Spec Type: Surgical Subm Dr: Kim Matute MD Tissues: A Gastric Biopsy (GASTRIC POLYP) B Gastric Biopsy (GASTRIC BX) Procedures: HE/4, Gross/Micro L4/2, H PYLORI Age/ Patient Sex Location Account Attending Physician Venita Rosenberg 59/M [id number] Kim Matute MD SPEC NUM: RECD: 01/14/25 STATUS: [place] HICKS NUM: [id number] YUKO: 01/14/[address] [facility] DR: Kim Matute MD ENTERED: 01/14/[address] [facility] DR: TRAMAINE TYPE: Surgical DEPT: S ENTERED BY: [id number] RECV BY: [id number] ORDERED: HE/4, Gross/Micro L4/2, H PYLORI ORDERED: HE/4, Gross/Micro L4/2, H PYLORI Pathological Diagnosis A. 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 Stomach (mucosal biopsies): ? Reactive gastropathy, mild ? No Helicobacter pylori, intestinal metaplasia, or dysplasia seen? See microscopic description Clinical Information Cirrhosis, Part B rule out H. pylori Gross Description Part A is received in formalin labeled with the patients name, date of , and gastric polyp is a esqueda-finch, focally erythematous, friable, 0.3 cm in greatest dimension polypoid fragment. The specimen is entirely submitted in a single cassette. (1, ns, [id number] A) J Part B is received in formalin labeled with the patients name, date of , and gastric bx are 2 esqueda-finch, focally erythematous, friable,0.2 and 0.3 cm in greatest dimension tissue bits. The specimen is entirely submitted in a single cassette. (1, ns, [id number] B) JG Specimen: Received: 01/14/25 Status: PRASADFredi Hicks Num: [id number] Spec Type: Surgical Subm Dr: Kim Matute MD Tissues: A Gastric Biopsy (GASTRIC POLYP) B Gastric Biopsy (GASTRIC BX) Procedures: HE/4, Gross/Micro L4/2, H PYLORI Patient: ChetVenita [id number] (Continued) Specimen: Received: 01/14/25 (Continued) Signed (signature on file) Steven Costello Jr., MD 01/16/25 1207 Specimen: Received: 01/14/25 Status: PRASADFredi Req Num: [id number] Spec Type: Surgical Subm Dr: Kim Matute MD Tissues: A Gastric Biopsy (GASTRIC POLYP) B Gastric Biopsy (GASTRIC BX) Procedures: KARRI/Viviane, Gross/Micro L4/2, H PYLORI Patient: Venita Rosenberg [id number] (Continued) Specimen: [id number] Received: 01/14/25 (Continued) Microscopic Description B. Immunoperoxidase stain performed on formalin fixed and paraffin-embedded tissue sections (block B1) for Helicobacter pylori organisms is negative .? The control stains appropri jacquie. CPT Codes 15897 x 2, 83154 Specimen: [id number] Received: 01/14/25 Status: [place] Hicks Num: [id number] Spec Type: Surgical Subm Dr: Kim Matute MD Tissues: A Gastric Biopsy (GASTRIC POLYP) B Gastric Biopsy (GASTRIC BX) Procedures: HE/4, Gross/Micro L4/2, H PYLORI Patient: Venita Rosenberg [id number] (Continued) Signed (signature on file) Steven Costello Jr., MD 01/16/25 1207 Normal [facility] US liveron 01-04-2025 liver [facility] [place] [address] Ultrasound Report Signed Patient: Venita Rosenberg MR#: [id number] : 1965 Acct:[id number] Age/Sex: 59 / M ADM Date: 01/04/25 Loc: Room: Type: [facility] Attending Dr: Kim Matute MD Ordering Provider: Kim Matute MD Date of Service: 01/04/25 US/US liver: K74.60 - Unspecified cirrhosis of liver Copies to: Kim Matute MD LIMITED ABDOMINAL ULTRASOUND: CLINICAL HISTORY: Cirrhosis. COMPARISON: None TECHNIQUE: Grayscale and color Doppler images of the right upper quadrant organs were obtained. FINDINGS: Pancreas: Visualized portions appear unremarkable. Liver: No mass or intrahepatic ductal dilatation. Hepatopedal flow is seen within the portal vein. Gallbladder: Removed. CBD: 3.8 mm RT KIDNEY: No Hydronephrosis US/US liver IMPRESSION: NO ACUTE PROCESS. NO HEPATIC MASS.. Impression dictated by: Leonardo Mitchell Jr., Deonte01/04/2025 2:16 PM Dictation Location: [place] [address] Tech: Blossom Lara Transcribed By: CHETNA 01/04/251415 Dictated By: Leonardo Mitchell Jr, DO 01/04/251415 Signed By: 01/04/251415 Normal [facility] Alanine aminotransferase [En zymatic activity/volume] in Serum or PlasmaOrdered By: Kim Matute on 12-31-2024 ALT [Catalytic activity/Vol] Alanine aminotransferase [Enzymatic activity/volume] in Serum or Plasma 7-52 [facility] Albumin [Mass/volume] in Ser um or Plasma by Bromocresol green (BCG) dye binding methoOrdered By: Imdinh Matute on 12-31-2024 Albumin BCG dye [Mass/Vol] Albumin [Mass/volume] in Serum or Plasma by Bromocresol green (BCG) dye binding metho 3.5-5.7 [facility] Alkaline phosphatase [Enzyma tic activity/volume] in Serum or PlasmaOrdered By: Imad Giovani on 12-31-2024 ALP [Catalytic activity/Vol] Alkaline phosphatase [Enzymatic activity/volume] in Serum or Plasma 34-104 [facility] Aspartate aminotransferase [ Enzymatic activity/volume] in Serum or PlasmaOrdered By: Imad Asaad on 12-31-2024 AST [Catalytic activity/Vol] Aspartate aminotransferase [Enzymatic activity/volume] in Serum or Plasma 13-39 [facility] Basophils Auto (Bld) [#/Vol] Ordered By: Imad Asaad on 12-31-2024 Basophils (Bld) [#/Vol] Automated basophil count 0.0-0.2 [facility] Basophils/100 WBC Auto (Bld) Ordered By: Imad Asaad on 12-31-2024 Basophils/100 WBC (Bld) Automated basophil % . [facility] Bilirubin.total [Mass/volume ] in Serum or PlasmaOrdered By: Imdinh Matute on 12-31-2024 Bilirubin [Mass/Vol] Bilirubin.total [Mass/volume] in Serum or Plasma 0.3-1.0 [facility] Blood or tissue HFE gene mut ations identification by molecular genetics methodOrdered By: Kim Matute on 12-31-2024 HFE gene targeted mutation analysis [employer] Nom (Bld/Tiss) Blood or tissue HFE gene mutations identification by molecular genetics method . [facility] Comment on above: Results:c.845G>A (p. Ruq012Tva) - Not Detectedc.187C>G (p.Ilg80Aya) - Detected, heterozygousc.193A>T (p.Mjr77Zrj) - Not DetectedNot associated with increased risk to develop clinicalsymptoms of Hereditary Hemochromatosis. In symptomaticindividuals, other causes of iron overload should beevaluated. See Additional Information and Comments.Additional Clinical Information:Hereditary hemochromatosis (HFE related) is an autosomalrecessive iron storage disorder. Patients may have agenetic diagnosis of hereditary hemochromatosis and nevershow clinical symptoms. Clinical symptoms typically appearbetween 40 to 60 years in males and after menopause infemales. Signs and symptoms may include organ damage,primarily in the liver, risk for hepatocellularcarcinoma, diabetes, and heart disease due to ironaccumulation. Life expectancy may be decreased inindividuals who develop cirrhosis. Treatment forclinically symptomatic individuals may includetherapeutic phlebotomy. Liver transplant may be used totreat end stage liver failure. For preventive care,monitoring for iron overload is recommended for patientswho are homozygous for c.845G>A (p.Yre274Uqy) and have yetto experience clinical symptoms.Comments:The most common HFE variants associated with hereditaryhemochromatosis are c.845G>A (p.Mcq165Uks), c.187C>G(p.Sxg73Yue), c.193A>T (p.Gsj74Wov). While patientshomozygous for c.845G>A (p.Xda651Plz) are the most likelyto present clinical symptoms, less than 10% developclinically significant iron overload with tissue and organdamage.Genetic counseling is recommended to discuss the potentialclinical implications of positive results, as well asrecommendations for testing family members.Genetic Coordinators are available for health careproviders to discuss results at [phone] ([phone]).Test Details:Three variants analyzed:c.845G>A (p.Fyo323Ohr), commonly referred to as C282Yc.187C>G (p.Snv06Gfs), commonly referred to as H63Dc.193A>T (p.Dyu85Kfv), commonly referred to as F27YZerqrzw/Limitations:DNA Analysis of the HFE gene (NM_000410.4) was performedby PCR amplification followed by restriction enzymedigestion analyses. Results must be combined with clinicalinformation for the most accurate interpretation. Molecular-based testing is highly accurate, but as in any laboratorytest, diagnostic errors may occur. False positive or falsenegative results may occur for reasons that include geneticvariants, blood transfusions, bone marrow transplantation,somatic or tissue-specific mosaicism, mislabeled samples,or erroneous representation of family relationships.This test was developed and its performancecharacteristics determined by [employer]. It has not beencleared or approved by the Food and Drug Administration.References:Dk BR, Randy PC, Rafael KV, Alvaro LW, Christiane ;[employer] Association for the Study of Liver Diseases.Diagnosis and management of hemochromatosis: 2011 practiceguideline by the [employer] Association for the Study ofLiver Diseases. Hepatology. 2010;54(1):328-43. doi:10.1002/hep.95532. PMID: 37388511; PMCID: VOU3567299.Jacquelin G, Efren P, Danita COLEMAN, Ras H, Robbie O,John S, Keven I, Fabricio M, Jami S. [facility] best practiceguidelines for the molecular genetic diagnosis ofhereditary hemochromatosis (HH). Eur J Hum Leslie. 2016Apr;24(4):479-95. doi: 10.1038/ejhg.2015.128. Epub 2014. PMID: 39712116; PMCID: MSR6388839. Calcium [Mass/volume] in Ser um or PlasmaOrdered By: Imad Asaad on 12-31-2024 Calcium [Mass/Vol] Calcium [Mass/volume ] in Serum or Plasma 8.6-10.3 [facility] Carbon dioxide, total [Moles /volume] in Serum or PlasmaOrdered By: Imad Asaad on 12-31-2024 CO2 [Moles/Vol] Carbon dioxide, tota l [Moles/volume] in Serum or Plasma 21.0-31.0 [facility] Chloride [Moles/volume] in S víctor or PlasmaOrdered By: Imdinh Asaad on 12-31-2024 Chloride [Moles/Vol] Chloride [Moles/vol ume] in Serum or Plasma 98-107 [facility] Complete Blood Count Auto Di ffon 12-31-2024 Basophils (Bld) [#/Vol] 0.0 10*3/uL Normal 0.0-0.2 [facility] Comment on above: Result Comment: PERF ORMED BY: [place] [address] PATHOLOGIST COREMAKING MACHINE SETTER BARON PIÑA M.D. Performed By: #### H BSAG, HAABT, HBSAB, HBCAB, HEMOCHROM #### [facility] , #### CMP, CBC, PT #### [address] Basophils/100 WBC (Bld) 0.5 % Normal . [facility] Comment on above: Performed By: #### H BSAG, HAABT, HBSAB, HBCAB, HEMOCHROM #### [facility] , #### CMP, CBC, PT #### [place] [address] [place] Eosinophils (Bld) [#/Vol] 0.1 10*3/uL Normal 0.0-0.45 [facility] Comment on above: Performed By: #### H BSAG, HAABT, HBSAB, HBCAB, HEMOCHROM #### [facility] , #### CMP, CBC, PT #### [facility] [address] [place] [address] [place] Eosinophils/100 WBC (Bld) 2.1 % Normal . [facility] Comment on above: Performed By: #### H BSAG, HAABT, HBSAB, HBCAB, HEMOCHROM #### [facility] , #### CMP, CBC, PT #### [address] Erythrocyte distribution width (RBC) [Ratio] 12.6 % Normal 12.0-14.8 [facility] Comment on above: Performed By: #### H BSAG, HAABT, HBSAB, HBCAB, HEMOCHROM #### [facility] , #### CMP, CBC, PT #### [address] Hematocrit (Bld) [Volume fraction] 44.4 % Normal 38.8-50.0 [facility] Comment on above: Performed By: #### H BSAG, HAABT, HBSAB, HBCAB, HEMOCHROM #### [facility] , #### CMP, CBC, PT #### [address] Hemoglobin (Bld) [Mass/Vol] 15.1 g/dL Normal 13.0-17.0 [facility] Comment on above: Performed By: #### H BSAG, HAABT, HBSAB, HBCAB, HEMOCHROM #### [facility] , #### CMP, CBC, PT #### [address] Lymphocytes (Bld) [#/Vol] 1.0 10*3/uL Normal 1.00-4.8 [facility] Comment on above: Performed By: #### H BSAG, HAABT, HBSAB, HBCAB, HEMOCHROM #### [facility] , #### CMP, CBC, PT #### [address] Lymphocytes/100 WBC (Bld) 22.7 % Normal . [facility] Comment on above: Performed By: #### H BSAG, HAABT, HBSAB, HBCAB, HEMOCHROM #### [facility] , #### CMP, CBC, PT #### [address] MCH (RBC) [Entitic mass] 30.3 pg Normal 27.5-35.2 [facility] Comment on above: Performed By: #### H BSAG, HAABT, HBSAB, HBCAB, HEMOCHROM #### [facility] , #### CMP, CBC, PT #### [address] MCV (RBC) [Entitic vol] 89.0 fL Normal 83.5-101 [facility] Comment on above: Performed By: #### H BSAG, HAABT, HBSAB, HBCAB, HEMOCHROM #### [facility] , #### CMP, CBC, PT #### [address] Mean Corpuscular HGB Conc 34.1 g/dL Normal 32.5-35.6 [facility] Comment on above: Performed By: #### H BSAG, HAABT, HBSAB, HBCAB, HEMOCHROM #### [facility] , #### CMP, CBC, PT #### [address] Monocytes (Bld) [#/Vol] 0.4 10*3/uL Normal 0.0-0.8 [facility] Comment on above: Performed By: #### H BSAG, HAABT, HBSAB, HBCAB, HEMOCHROM #### [facility] , #### CMP, CBC, PT #### [address] Monocytes/100 WBC (Bld) 8.2 % Normal . [facility] Comment on above: Performed By: #### H BSAG, HAABT, HBSAB, HBCAB, HEMOCHROM #### [facility] , #### CMP, CBC, PT #### [address] [address] [place] Neutrophils (Bld) [#/Vol] 2.9 10*3/uL Normal 1.8-7.7 [facility] Comment on above: Performed By: #### H BSAG, HAABT, HBSAB, HBCAB, HEMOCHROM #### [facility] , #### CMP, CBC, PT #### [address] Neutrophils/100 WBC (Bld) 66.5 % Normal . [facility] Comment on above: Performed By: #### H BSAG, HAABT, HBSAB, HBCAB, HEMOCHROM #### [facility] , #### CMP, CBC, PT #### [address] NRBC% 0.2 /100{WBC} Normal 0-0.5 [facility] Comment on above: Performed By: #### H BSAG, HAABT, HBSAB, HBCAB, HEMOCHROM #### [facility] , #### CMP, CBC, PT #### [address] Platelet mean volume (Bld) [Entitic vol] 7.4 fL Normal 6.6-10.1 [facility] Comment on above: Performed By: #### H BSAG, HAABT, HBSAB, HBCAB, HEMOCHROM #### [facility] , #### CMP, CBC, PT #### [place] [address] [place] Platelets (Bld) [#/Vol] 200 10*3/uL Normal 150-450 [facility] Comment on above: Performed By: #### H BSAG, HAABT, HBSAB, HBCAB, HEMOCHROM #### [facility] , #### CMP, CBC, PT #### [address] RBC (Bld) [#/Vol] 4.99 10*6/uL Normal 3.90-5.60 [facility] Comment on above: Performed By: #### H BSAG, HAABT, HBSAB, HBCAB, HEMOCHROM #### [facility] , #### CMP, CBC, PT #### [address] WBC (Bld) [#/Vol] 4.4 10*3/uL Normal 4.1-10.5 [facility] Comment on above: Performed By: #### H BSAG, HAABT, HBSAB, HBCAB, HEMOCHROM #### [facility] , #### CMP, CBC, PT #### [address] Comprehensive Metabolic Pane adrien 12-31-2024 Albumin [Mass/Vol] 4.3 g/dL Normal 3.5-5.7 [facility] Comment on above: Performed By: #### H BSAG, HAABT, HBSAB, HBCAB, HEMOCHROM #### [facility] , #### CMP, CBC, PT #### [address] Albumin/Globulin [Mass ratio] 1.8 {ratio} Normal [facility] Comment on above: Performed By: #### H BSAG, HAABT, HBSAB, HBCAB, HEMOCHROM #### [facility] , #### CMP, CBC, PT #### [address] ALP [Catalytic activity/Vol] 68 U/L Normal 34-104 [facility] Comment on above: Result Comment: PERF ORMED BY: [place] [address] PATHOLOGIST [employer]EMAKING MACHINE SETTER BARON PIÑA M.D. Performed By: #### H BSAG, HAABT, HBSAB, HBCAB, HEMOCHROM #### [facility] , #### CMP, CBC, PT #### [address] ALT [Catalytic activity/Vol] 13 U/L Normal 7-52 [facility] Comment on above: Performed By: #### H BSAG, HAABT, HBSAB, HBCAB, HEMOCHROM #### [facility] , #### CMP, CBC, PT #### [address] Anion gap [Moles/Vol] 7.9 mmol/L Normal 6.0-15.0 [facility] Comment on above: Performed By: #### H BSAG, HAABT, HBSAB, HBCAB, HEMOCHROM #### [facility] , #### CMP, CBC, PT #### [address] AST [Catalytic activity/Vol] 16 U/L Normal 13-39 [facility] Comment on above: Performed By: #### H BSAG, HAABT, HBSAB, HBCAB, HEMOCHROM #### [facility] , #### CMP, CBC, PT #### [address] Bilirubin [Mass/Vol] 0.6 mg/dL Normal 0.3-1.0 [facility] Comment on above: Performed By: #### H BSAG, HAABT, HBSAB, HBCAB, HEMOCHROM #### [facility] , #### CMP, CBC, PT #### [place] [address] [place] Calcium [Mass/Vol] 8.9 mg/dL Normal 8.6-10.3 [facility] Comment on above: Performed By: #### H BSAG, HAABT, HBSAB, HBCAB, HEMOCHROM #### [facility] , #### CMP, CBC, PT #### [place] [address] [place] Chloride [Moles/Vol] 104 mmol/L Normal 98-107 [facility] Comment on above: Performed By: #### H BSAG, HAABT, HBSAB, HBCAB, HEMOCHROM #### [facility] , #### CMP, CBC, PT #### [address] CO2 [Moles/Vol] 30.5 mmol/L Normal 21.0-31.0 [facility] Comment on above: Performed By: #### H BSAG, HAABT, HBSAB, HBCAB, HEMOCHROM #### [facility] , #### CMP, CBC, PT #### [address] Creatinine [Mass/Vol] 0.77 mg/dL Normal 0.70-1.30 [facility] Comment on above: Performed By: #### H BSAG, HAABT, HBSAB, HBCAB, HEMOCHROM #### [facility] , #### CMP, CBC, PT #### [address] GFR/1.73 sq M.predicted MDRD (S/P/Bld) [Vol rate/Area] mL/min/{1.73_m2} Normal [facility] Comment on above: Performed By: #### H BSAG, HAABT, HBSAB, HBCAB, HEMOCHROM #### [facility] , #### CMP, CBC, PT #### [facility] [address] [place] [address] Globulin (S) [Mass/Vol] 2.4 g/dL Normal [facility] Comment on above: Performed By: #### H BSAG, HAABT, HBSAB, HBCAB, HEMOCHROM #### [facility] , #### CMP, CBC, PT #### [address] Glucose [Mass/Vol] 85 mg/dL Normal 70-100 [facility] Comment on above: Result Comment: [place] Glucose Reference Range is dependent on time and content of last meal. Glucose of more than 200 mg/dL in a nonstressed, ambulatory subject supports the diagnosis of Diabetes Mellitus. ADA recommended reference range Performed By: #### H BSAG, HAABT, HBSAB, HBCAB, HEMOCHROM #### [facility] , #### CMP, CBC, PT #### [address] Potassium [Moles/Vol] 4.4 mmol/L Normal 3.5-5.1 [facility] Comment on above: Performed By: #### H BSAG, HAABT, HBSAB, HBCAB, HEMOCHROM #### [facility] , #### CMP, CBC, PT #### [address] Protein [Mass/Vol] 6.7 g/dL Normal 6.4-8.9 [facility] Comment on above: Performed By: #### H BSAG, HAABT, HBSAB, HBCAB, HEMOCHROM #### [facility] , #### CMP, CBC, PT #### [place] [address] [place] Sodium [Moles/Vol] 138 mmol/L Normal 136-145 [facility] Comment on above: Performed By: #### H BSAG, HAABT, HBSAB, HBCAB, HEMOCHROM #### [facility] , #### CMP, CBC, PT #### [place] [address] [place] Urea nitrogen [Mass/Vol] 18 mg/dL Normal 7-25 [facility] Comment on above: Performed By: #### H BSAG, HAABT, HBSAB, HBCAB, HEMOCHROM #### [facility] , #### CMP, CBC, PT #### [place] [address] [place] Creatinine [Mass/volume] in Serum or PlasmaOrdered By: Imad [facility] on 12-31-2024 Creatinine [Mass/Vol] Creatinine [Mass/v olume] in Serum or Plasma 0.70-1.30 [facility] Eosinophils Auto (Bld) [#/Vo l]Ordered By: Imad Asaad on 12-31-2024 Eosinophils (Bld) [#/Vol] Automated eosinophil count 0.0-0.[address] [facility] Eosinophils/100 WBC Auto (Bl d)Ordered By: Imad Asaad on 12-31-2024 Eosinophils/100 WBC (Bld) Automated eosinophil % . [facility] Erythrocyte distribution wid th Auto (RBC) [Ratio]Ordered By: ad Asa on 12-31-2024 Erythrocyte distribution width (RBC) [Ratio] Erythrocyte distribution width [Ratio] by Automated count 12.0-14.8 [facility] Globulin Calc (S) [Mass/Vol] Ordered By: [facility] on 12-31-2024 Globulin (S) [Mass/Vol] Serum globulin measurement by calculation (mass/volume) [facility] Glucose [Mass/volume] in Ser um or PlasmaOrdered By: [facility] on 12-31-2024 Glucose [Mass/Vol] Glucose [Mass/volume ] in Serum or Plasma 70-100 [facility] Comment on above: ADA recommended refe rence rangeRandom Glucose Reference Range is dependent on time and content of last meal. Glucose of more than 200 mg/dL in a nonstressed, ambulatory subject supports the diagnosis of Diabetes Mellitus. Hematocrit Auto (Bld) [Volum e fraction]Ordered By: Imad Asaad on 12-31-2024 Hematocrit (Bld) [Volume fraction] Hematocrit [Volume Fraction] of Blood by Automated count 38.8-50.0 [facility] Hemoglobin [Mass/volume] in BloodOrdered By: [facility] on 12-31-2024 Hemoglobin (Bld) [Mass/Vol] Hemoglobin [Mass/volume] in Blood 13.0-17.0 [facility] Hepatitis A Antibody Totalon 12-31-2024 Hepatitis A Antibody Total Negative Normal Negative [facility] Comment on above: Result Comment: Comm ent: The HAV total antibody assay detects both IgG and IgM but does not differentiate between them. A negative result suggests susceptibility to infection. A positive result could be due to vaccination, previously resolved infection or active infection. Testing for HAV IgM should be performed if active HAV infection is suspected. [facility] offers profiles that will automatically reflex positive HAV total antibody results to IgM (e.g., panel #[id number] HAV Antibody w/ Rfx). Performed at: [address] [id number] Warehouse Manager: Landon Austin PhD, Phone: [phone] Performed By: #### H BSAG, HAABT, HBSAB, HBCAB, HEMOCHROM #### [facility] , #### CMP, CBC, PT #### [facility] [address] [place] [address] Hepatitis A virus Ab [Presen ce] in Serum by ImmunoassayOrdered By: Kim Matute on 12-31-2024 HAV Ab IA Ql (S) Hepatitis A virus Ab [Presence] in Serum by Immunoassay Negative [facility] Comment on above: Comment: The HAV tot al antibody assay detects both IgG andIgM but does not differentiate between them. A negativeresult suggests susceptibility to infection. A positiveresult could be due to vaccination, previously resolvedinfection or active infection. Testing for HAV IgM shouldbe performed if active HAV infection is suspected. [facility] that will automatically reflex positive HAVtotal antibody results to IgM (e.g., panel #[id number] HAVAntibody w/ Rfx).Performed at: [address] [id number] Director: Landon Ausitn PhD, Phone: [phone] Hepatitis B Core Antibodyon 12-31-2024 Hepatitis B Core Antibody Negative Normal Negative [facility] Comment on above: Performed By: #### H BSAG, HAABT, HBSAB, HBCAB, HEMOCHROM #### [facility] , #### CMP, CBC, PT #### [place] [address] [place] Hepatitis B Surface Antibody on 12-31-2024 Hepatitis B Surface Antibody Non-Reactive Normal . [facility] Comment on above: Result Comment: Non Reactive: Not immune to HBV infection. Equivocal: Unable to determine if anti-HBs is present at levels consistent with immunity. Reactive: Anti-HBs concentration detected at greater than 10 mIU/mL. Individual is considered to be immune to infection with HBV. Performed By: #### H BSAG, HAABT, HBSAB, HBCAB, HEMOCHROM #### [facility] , #### CMP, CBC, PT #### [facility] [address] Hepatitis B Surface Antigeno n 12-31-2024 HBsAg Screen Negative Normal Negative [facility] Comment on above: Result Comment: PERF ORMED BY: [place] [address] PATHOLOGIST COREMAKING MACHINE SETTER BARON PIÑA M.D. Performed By: #### H BSAG, HAABT, HBSAB, HBCAB, HEMOCHROM ####[facility] ,#### CMP, CBC, PT ####[facility] [id number] Hepatitis B virus core antib mehdi assayOrdered By: Kim Matute on 12-31-2024 Hepatitis B Core Total Antibody Negative Negative [facility] Hereditary Hemochromatosis,Brian Reeves 12-31-2024 Hereditary Hemochromatosis Comment Normal . [facility] Comment on above: Result Comment: Resu lts: c.845G>A (p.Szl754Tal) - Not Detected c.187C>G (p.Ekh20Ssq) - Detected, heterozygous c.193A>T (p.Hne93Xef) - Not Detected Not associated with increased risk to develop clinical symptoms of Hereditary Hemochromatosis. In symptomatic individuals, other causes of iron overload should be evaluated. See Additional Information and Comments. Additional Clinical Information: Hereditary hemochromatosis (HFE related) is an autosomal recessive iron storage disorder. Patients may have a genetic diagnosis of hereditary hemochromatosis and never show clinical symptoms. Clinical symptoms typically appear between 40 to 60 years in males and after menopause in females. Signs and symptoms may include organ damage, primarily in the liver, risk for hepatocellular carcinoma, diabetes, and heart disease due to iron accumulation. Life expectancy may be decreased in individuals who develop cirrhosis. Treatment for clinically symptomatic individuals may include therapeutic phlebotomy. Liver transplant may be used to treat end stage liver failure. For preventive care, monitoring for iron overload is recommended for patients who are homozygous for c.845G>A (p.Zbj431Dyf) and have yet to experience clinical symptoms. Comments: The most common HFE variants associated with hereditary hemochromatosis are c.845G>A (p.Aod810Rxq), c.187C>G (p.Cod69Vwj), c.193A>T (p.Hyt13Kfk). While patients homozygous for c.845G>A (p.Oef248Bma) are the most likely to present clinical symptoms, less than 10% develop clinically significant iron overload with tissue and organ damage. Genetic counseling is recommended to discuss the potential clinical implications of positive results, as well as recommendations for testing family members. Genetic Coordinators are available for health care providers to discuss results at [phone]). Test Details: Three variants analyzed: c.845G>A (p.Wfc382Xpk), commonly referred to as C282Y c.187C>G (p.Ygt12Wbp), commonly referred to as H63D c.193A>T (p.Uoe28Sth), commonly referred to as S65C Methods/Limitations: DNA Analysis of the HFE gene (NM_000410.4) was performed by PCR amplification followed by restriction enzyme digestion analyses. Results must be combined with clinical information for the most accurate interpretation. Molecular- based testing is highly accurate, but as in any laboratory test, diagnostic errors may occur. False positive or false negative results may occur for reasons that include genetic variants, blood transfusions, bone marrow transplantation, somatic or tissue-specific mosaicism, mislabeled samples, or erroneous representation of family relationships. This test was developed and its performance characteristics determined by [employer]. It has not been cleared or approved by the Food and Drug Administration. References: Dk BR, Randy PC, Rafael KV, Alvaro LW, Christiane ; [employer] Association [employer] the [employer] Liver Diseases. Diagnosis and management of hemochromatosis: 2011 practice guideline by the [employer] Liver Diseases. Hepatology. 2011 Mar;54(1):328-43. doi: 10.1002/hep.49213. PMID: 05286681; PMCID: XAE4937935. Jacquelin G, Efren P, Danita COLEMAN, Ras H, Robbie O, John S, Keven I, Fabricio Chowdary, Jami Chance. [facility] best practice guidelines for the molecular genetic diagnosis of hereditary hemochromatosis (HH). Eur J Hum Leslie. 2016 Dec;24(4):479-95. doi: 10.1038/ejhg.2015.128. Epub 2014Apr 02. PMID: 59285362; PMCID: ZXQ3562237. Performed By: #### H BSAG, HAABT, HBSAB, HBCAB, HEMOCHROM ####[facility] ,#### CMP, CBC, PT ####[place] [id number] [address] Reviewed by: Comment Normal . [facility] Comment on above: Result Comment: Tech nical Component performed at [employer] RT Professional Component performed by: [employer] Milad Suazo, Ph.D., [facility] Director, [employer] [place] [address] Performed at: [facility] [employer] RTP [address] [place], [place] [id number] Warehouse Manager: Delvis Marinelli [facility], Phone: [phone] PERFORMED BY: [facility] [address] [place] [id number] PATHOLOGIST COREMAKING MACHINE SETTER BARON PIÑA M.D. Performed By: #### H BSAG, HAABT, HBSAB, HBCAB, HEMOCHROM ####[facility] ,#### CMP, CBC, PT ####[place] [id number] [address] INR in Platelet poor plasma by Coagulation assayOrdered By: Kim Matute on 12-31-2024 INR Coag (PPP) [Relative time] INR in Platelet poor plasma by Coagulation assay [facility] Comment on above: INR Therapeutic Rang e A) Pre- and Peroperative OAT started two weeks before surgery. NOT HIP SURGERY: 1.5 - 2.5 HIP SURGERY: 2 - 3B) Primary and secondary prevention of venous THROMBOSIS: 2 - 3C) Active venous thrombosis, pulmonary embolismand prevention of recurrent venous thrombosis: 2 - 3D) Prevention of arterial thromboembolismincluding patients with mechanical heart valves: 3 - 4.5 Leukocytes [#/volume] correc hamlet for nucleated erythrocytes in Blood by Automated counOrdered By: Imad Asaad on 12-31-2024 WBC corrected for nucl RBC Auto (Bld) [#/Vol] Leukocytes [#/volume] corrected for nucleated erythrocytes in Blood by Automated coun 4.1-10.5 [facility] Lymphocytes Auto (Bld) [#/Vo l]Ordered By: Imad Asaad on 12-31-2024 Lymphocytes (Bld) [#/Vol] Lymphocytes [#/volume] in Blood by Automated count 1.00-4.8 [facility] Lymphocytes/100 WBC Auto (Bl d)Ordered By: Imad Asaad on 12-31-2024 Lymphocytes/100 WBC (Bld) Lymphocytes/100 leukocytes in Blood by Automated count . [facility] MCH Auto (RBC) [Entitic mass ]Ordered By: Imad Asaad on 12-31-2024 MCH (RBC) [Entitic mass] MCH [Entitic mass] by Automated count 27.5-35.2 [facility] MCHC Auto (RBC) [Mass/Vol]Or dered By: Imad Asaad on 12-31-2024 MCHC (RBC) [Mass/Vol] MCHC [Mass/volume] by Automated count 32.5-35.6 [facility] MCV Auto (RBC) [Entitic vol] Ordered By: Imad Asaad on 12-31-2024 MCV (RBC) [Entitic vol] MCV [Entitic volume] by Automated count 83.5-101 [facility] Monocytes Auto (Bld) [#/Vol] Ordered By: Imad Asaad on 12-31-2024 Monocytes (Bld) [#/Vol] Automated blood monocyte count 0.0-0.8 [facility] Monocytes/100 WBC Auto (Bld) Ordered By: Imad Asaad on 12-31-2024 Monocytes/100 WBC (Bld) Automated monocyte % . [facility] Neutrophils Auto (Bld) [#/Vo l]Ordered By: Imad Asaad on 12-31-2024 Neutrophils (Bld) [#/Vol] Neutrophils [#/volume] in Blood by Automated count 1.8-7.7 [facility] Neutrophils/100 WBC Auto (Bl d)Ordered By: Imad Asaad on 12-31-2024 Neutrophils/100 WBC (Bld) Automated neutrophil % . [facility] No Panel InformationOrdered By: Imad Asaad on 12-31-2024 Estimated GFR (CKD-EPI) > 60.0 mL/Min [facility] Hemochromatosis Note Comment . [facility] Comment on above: Technical Component performed at [facility] RTPProfessional Component performed by:[employer] Zacarias Suazo, Ph.D., FACMGDirector, [id number] [id number] at: [employer] [id number] [place], [place] [id number] Director: Delvis Marinelli [facility], Phone: [phone] Pharmacy Creatinine Clearance (Chem N/A [facility] Nucleated erythrocytes [Pres ence] in Blood by Automated countOrdered By: Imad Asaad on 12-31-2024 Nucleated RBC Auto Ql (Bld) Nucleated erythrocytes [Presence] in Blood by Automated count 0-0.5 [facility] Platelet mean volume Auto (B ld) [Entitic vol]Ordered By: Imad Asaad on 12-31-2024 Platelet mean volume (Bld) [Entitic vol] Platelet mean volume [Entitic volume] in Blood by Automated count 6.6-10.1 [facility] Platelets Auto (Bld) [#/Vol] Ordered By: Imad Asaad on 12-31-2024 Platelets (Bld) [#/Vol] Platelets [#/volume] in Blood by Automated count 150-450 [facility] Potassium [Moles/volume] in Serum or PlasmaOrdered By: Imad Asaad on 12-31-2024 Potassium [Moles/Vol] Potassium [Moles/v olume] in Serum or Plasma 3.5-5.1 [facility] Protein [Mass/volume] in Ser um or PlasmaOrdered By: Kim Matute on 12-31-2024 Protein [Mass/Vol] Protein [Mass/volume ] in Serum or Plasma 6.4-8.9 [facility] Prothrombin Time INRon 12-31 INR Coag (PPP) [Relative time] 1.1 {INR} Normal [facility] Comment on above: Result Comment: INR Therapeutic Range A) Pre- and Peroperative OAT started two weeks before surgery. NOT HIP SURGERY: 1.5 - 2.5 HIP SURGERY: 2 - 3 B) Primary and secondary prevention of venous THROMBOSIS: 2 - 3 C) Active venous thrombosis, pulmonary embolism and prevention of recurrent venous thrombosis: 2 - 3 D) Prevention of arterial thromboembolism including patients with mechanical heart valves: 3 - 4.5 PERFORMED BY: [place] [address] PATHOLOGIST COREMAKING MACHINE SETTER BARON PIÑA M.D. Performed By: #### H BSAG, HAABT, HBSAB, HBCAB, HEMOCHROM #### [facility] , #### CMP, CBC, PT #### [facility] [address] [place] [address] [place]UST PT Coag (PPP) [Time] 12.0 s Normal 9.0-12.9 [facility] Comment on above: Result Comment: A he matocrit value greater than 55% may lead to inaccurate results in coagulation testing. Patients having hematocrit values >55% require a special collection tube for coagulation studies. Please contact the laboratory at [phone] for redraw instructions. Performed By: #### H BSAG, HAABT, HBSAB, HBCAB, HEMOCHROM #### [facility] , #### CMP, CBC, PT #### [facility] [address] [place], [place] [id number] RUST Prothrombin time (PT)Ordered By: Kim Matute on 12-31-2024 PT Coag (PPP) [Time] Prothrombin time (PT) 9.0- 12.9 [facility] Comment on above: A hematocrit value g reater than 55% may lead to inaccurate results in coagulation testing. Patients having hematocrit values >55% require a special collection tube for coagulation studies. Please contact the laboratory at [phone] for redraw instructions. RBC Auto (Bld) [#/Vol]Ordere d By: Imad Tenzinad on 12-31-2024 RBC (Bld) [#/Vol] Erythrocytes [#/volu me] in Blood by Automated count 3.90-5.60 [facility] Serum hepatitis B virus surf gt antibody detectionOrdered By: Imad Asaad on 12-31-2024 HBV surface Ab Ql (S) Hepatitis B virus surface Ab [Presence] in Serum . [facility] Comment on above: Non Reactive: Not im mune to HBV infection. Equivocal: Unable to determine if anti-HBs is present at levels consistent with immunity. Reactive: Anti-HBs concentration detected at greater than 10 mIU/mL. Individual is considered to be immune to infection with HBV. Serum or plasma albumin/glob ulin mass ratioOrdered By: Imad Asaad on 12-31-2024 Albumin/Globulin [Mass ratio] Serum or plasma albumin/globulin mass ratio [facility] Serum or plasma anion gap de terminationOrdered By: Imad Asaad 12-31-2024 Anion gap [Moles/Vol] Serum or plasma an ion gap determination 6.0-15.0 [facility] Serum or plasma hepatitis B virus surface antigen detection by immunoassayOrdered By: Imad Asaad 12-31-2024 HBV surface Ag IA Ql Hepatitis B virus s urface Ag [Presence] in Serum or Plasma by Immunoassay Negative [facility] Sodium [Moles/volume] in Ser um or PlasmaOrdered By: Imad Asaad on 12-31-2024 Sodium [Moles/Vol] Sodium [Moles/volume ] in Serum or Plasma 136-145 [facility] Urea nitrogen [Mass/volume] in Serum or PlasmaOrdered By: Imad Asaad 12-31-2024 Urea nitrogen [Mass/Vol] Urea nitrogen [Mass/volume] in Serum or Plasma 7-25 [facility] WBC Auto (Bld) [#/Vol]Ordere d By: Imad Asaad 12-31-2024 WBC (Bld) [#/Vol] Leukocytes [#/volume ] in Blood by Automated count 4.1-10.5 [facility] UroVysion Fish and Urine Cyt o ([facility])on 12-27-2024 UVFISH & UC Diagnosis Info Invalid Interpretation Code [facility] Comment on above: Result Comment: A:Ur ine,Bladder Wash:Bladder Wash Diagnosis Summary - Clusters and singled atypical urothelial cells. Clinical correlation and tissue confirmation is recommended as clinically indicated. Adequate cellularity for evaluation. Diagnosis Summary - The UroVysion FISH study detected a positive profile. UroVysion FISH evaluates chromosomes 3, 7, 17, and 9p21 for aneuploid and deletion events associated with urothelial cell carcinoma. 225 cells were analyzed in this evaluation. Evidence of aneuploidy in at least 25 cells and evidence in at least 6 cells with deletion of 9p21 were found. These findings should be correlated with cytology and cystoscopy results. * CPT: 22961, 29825. Microscopic Notes - Microscopic Notes - Abnormal cells 9p21 deletions: 6 Abnormal cells aneploid events: 25 Total cells analyzed: 225 Hematuria: Gross Description Site ID:A color Yellow fixative Alcohol Received 100 mls of clear yellow fluid with the patient's name and, Bladder Wash on the vial. Electronically signed by : on: 12/27/2024 13:04:55 Performed By: #### 1 [id number] #### [facility] [address] [place] [address] Reminderson 12-24-2024 Reminders Reminders From: Anna Sigala To: EU - Recalls Valdivia; Sent: 11/06/2024 11:06:11 EST Show up: 11/24/2024 11:06:00 EST Subject: Cysto/FISH/cytol Due Date/Time: 12/17/2024 11:06:00 EDT Reminder/Recall Patient is due in February 2025 for 3 month cysto/fish/cytol, bt ck Patient had Cysto in 01/21/25. He is getting #3 BCG tx at [facility]. Patient had Cysto 12/21/24 not 01/21/25 Patient getting BCG tx at [facility] on 02/01,02/08, 02/15. Cysto sched for 03/25/25.[facility] 12-21-2024 [facility] Telephone (PHA) VENITA ROSENBERG ([id number]) 1965 M Date Time Provider Department 12/21/24 SUZANNE VERA During your visit today, we recorded the following information about you: Allergies As of Date: 12/21/2024 (No Known Allergies) Date Reviewed: 11/02/2024 Reviewed by: Altagracia Reddy, HOLLAND - Fully Assessed Prescriptions as of 12/21/2024 - alfuzosin SR (UROXATRAL) 10 mg 24 hr tablet Take 10 mg by mouth once daily. Problem List As Of Date 12/21/2024 Noted Resolved Bladder cancer (HCC) [C67.9] 10/19/2024 Encounter Status:Closed by SUZANNE VERA on 12/21/24 [facility] 12-20-2024 [facility] Telephone ([facility]) VENITA ROSENBERG ([id number]) 1965 M Date Time Provider Department 12/20/24 NICHOLE GRIMES During your visit today, we recorded the following information about you: Nichole Grimes RN 12/20/2024 3:20 PM Signed Voicemail received from Tania at Dr Valdivia office stating pt's cystoscopy showed that he needs 3 more BCG treatments in December and January. Pt's follow up not until February 01. When would you like follow up rescheduled to? Adamaris: can you get records please. Please advise Nichole Grimes, RN Darwin Quinteros MD 12/20/2024 3:37 PM Signed Schedule maintenance BCG treatments weekly x 3 when he comes to see me on 02/01/25. Thanks. Altagracia Downey 12/20/2024 4:03 PM Signed Report scanned. Suleman Armijo 12/21/2024 10:05 AM Signed Patient has already been scheduled for RV on 02/01 from last appt. Nichole Cosme RN 12/21/2024 11:46 AM Signed Pharmacy: are you still placing orders for Dr Rowland? If so orders need to be placed in [place]. Thanks Nichole Grimes RN Allergies As of Date: 12/20/2024 (No Known Allergies) Date Reviewed: 11/02/2024 Reviewed by: Altagracia Reddy RN - Fully Assessed Reason for Visit: Care Coordination [3491] Cmt: BCG update Prescriptions as of 12/21/2024 - alfuzosin SR (UROXATRAL) 10 mg 24 hr tablet Take 10 mg by mouth once daily. Problem List As Of Date 12/20/2024 Noted Resolved Bladder cancer (HCC) [C67.9] 10/19/2024 Encounter Status:Closed by SULEMAN ARMIJO on 12/21/24 [facility] Ambulatory Visit Summaryon 0 12-19-2024 Ambulatory Visit Summary Ambulatory Visit Summary CHETVENITA Robson :1965 Visit Date:12/19/2024 Ambulatory Visit Instructions Your Diagnosis Personal history of bladder cancer Elevated PSA BPH with urinary obstruction Prostate nodule Kidney stone Duplicated renal collecting system Renal atrophy Your Care Team Attending Physician - Jarad VALDIVIA MD Primary Care Physician - PARTH GARCÍA MD This Is Your Medications List alfuzosin (alfuzosin 10 mg ER Tab) Procedures Performed Cystoscopy (12/19/2024), TURBT - Transurethral resection of bladder tumor (03/01/2024), Flexible cystoscopy (02/03/2024), Transrectal needle biopsy of prostate (12/22/2022), Cystoscopy (10/22/2022), Cystoscopy (10/23/2021), Cystoscopy (09/10/2020), Cystoscopy (09/25/2019), Cystoscopy (09/05/2018), Transrectal biopsy of prostate using ultrasound (US) guidance (08/19/2015), Cystoscopic removal of ureteric stent (05/30/2012), Cystoscopy and transurethral resection of bladder tumour (05/18/2012), History of cholecystectomy, History of tonsillectomy. Discharge Vitals Heart Rate (Peripheral) 79 Respiratory Rate 20 Blood Pressure 159/98 Height 180 cm Height 71 in Weight 62 kg Weight 136.686 lb BMI 19.14 What to do next Scheduled Follow-Up Appointments Tuesday 8:15 AM EDT With: Jarad VALDIVIA MD Where: [facility] [place] [address]- You Need to Schedule the Following Appointments Follow Up with Jarad VALDIVIA MD, URL When: Where: [facility] [address], [place] [address]- Medications What How Much When Instructions Unchanged alfuzosin (alfuzosin 10 mg ER Tab) 1 Tablets By Mouth Every day Medications and Immunizations Administered Given lidocaine Top 2% Gel w/Appl 6 mL, 6 mL, Topical. For: Personal history of bladder cancer, Elevated PSA, BPH with urinary obstruction, Prostate nodule, Kidney stone Allergies No Known Medication Allergies Problems Ongoing - Any problem that you are currently receiving treatment for. 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 Please share your experience with us by completing your survey. We appreciate your feedback and thank you for choosing us for your care. Education Materials Cancer Screening for Males A cancer screening is a test or exam that checks for cancer. Work with your health care provider to create a cancer screening schedule that protects your health. Who should have screening? All people who are male should be considered for screening of certain cancers, including colorectal cancer, prostate cancer, lung cancer, and skin cancer. Your health care provider may recommend screenings for other types of cancer if: ??? You have had cancer before. ??? You have a family member with cancer. ??? You have genes that could increase the risk of cancer. ??? You have risk factors for certain cancers, such as current or past use of tobacco products or being overweight. What are the benefits of screening? Cancer screening is done to look for cancer in the very early stages, before it spreads and becomes harder to treat and before you would start to notice symptoms. Finding cancer early improves the chances of successful treatment. It may save your life. When should I be screened for cancer? When you should be screened for cancer depends on: ??? Your age. ??? Your medical history and your family's medical history. ??? Certain lifestyle factors, such as smoking or other use of tobacco products. ??? Environmental exposure, such as to asbestos. How is screening done? Colorectal cancer Colorectal cancer screening looks for cancer or for growths called polyps that often form before cancer starts. Tests to look for cancer or polyps include: ??? Colonoscopy or flexible sigmoidoscopy. For these procedures, a flexible tube with a small camera is inserted into the rectum. ??? CT colonography. This test uses X-rays and a contrast dye to check the colon for polyps. Tests to look for cancer in the stool (feces) include: ??? Guaiac-based fecal occult blood test (FOBT). This test can find blood in stool. It can be done at home with a kit. ??? Fecal immunochemical test (FIT). This test can find blood in stool. For this test, you will need to collect stool samples at home. ??? Stool DNA test. This test looks for blood in stool and any changes in DNA that can lead to colon cancer. For this test, you will need to collect a stool sample at home and send it to a lab. All adults should have screenings starting at 45 years old and continuing through 75 years old. For males (more content not included)... Normal [facility] Fish and Urine Cyt o ( Labs)on 12-19-2024 [facility] Method of Extraction Bladder Wash Normal [facility] Comment on above: Performed By: #### 1 [id number] #### [facility] [address] [place] [address] [facility] Number of Jars 1 Invalid Interpretation Code [facility] Comment on above: Performed By: #### 1 [id number] #### [facility] [address] [place] [address] [facility] Specimen Bladder Wash Normal [facility] Comment on above: Performed By: #### 1 [id number] #### [facility] [address] [place] [address] [facility] Type of Service Technical Only Normal [facility] Comment on above: Performed By: #### 1 [id number] #### [facility] [address] [place] [address] Urology Office/Clinic Noteon 12-19-2024 Urology Office/Clinic Note Urology Office/Clinic Note Chief Complaint Patient is here for Cystoscopy HPI Staff Cysto ABX TAKEN, need fish/cytol History of Present Illness Tests reviewed: I have reviewed the previous health record information and history for this patient from Dr. Valdivia. I have reviewed and verified the staff HPI to be accurate for this encounter. Review of Systems PHQ Score Initial [...] HPI. Physical Exam Vitals & Measurements HR: 79(Peripheral) RR: 20 BP: 159/98 HT: 180 cm HT: 71 in WT: 62 kg WT: 136.686 lb BMI: 19.14 General Appearance: alert, no distress, well nourished, well developed male. Procedure Operative Information Anesthesia Type: Local Procedure: [...] Urethra is: Normal The Prostatic Urethra is: _Bilobar obstruction. The Bladder: _No tumors or stones, Trabeculated: None (0) The Ureteral orifices: Show efflux of clear urine Specimens Removed: Bladder wash sent for FISH and Cytology test Removal: Cystoscope is removed. The patient tolerated it well. Postoperative Information Patient is discharged home with antibiotic coverage. Follow up arranged. Assessment/Plan 1. Personal history of bladder cancer (Z85.51: Personal history of malignant neoplasm of bladder) - Uncle has hx of bladder and colon CA. Dx w/ Barker Syndrome. 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 Detrusor muscle is present and neg for involvement by tumor. - Cysto/FISH/cytology 10/22/22 - Cysto neg. Cytology suspicious for papillary urothelial neoplasm. FISH positive. - CT AP wo con 12/24/22 [facility] - Mild circumferential thickened and trabeculated appearance of the urinary bladder wall presumably related to the chronic urinary bladder outlet obstruction in combination with partial distention. - Cysto, rigid L ureteral dilation, L urs, L pyeloscopy, L renal wash for cytology, R rigid ureteral dilation, R urs, R pyeloscopy, and R renal wash for cytology 02/10/23. Renal washings neg. - Cysto/FISH/cytology 02/03/24 - Diffuse irritation. Retroflexion tumor adjacent to the bladder neck on pt's right side, measuring 2-3 cm. Cytology suspicious for high-grade. FISH positive. - TURBT 03/01/24 - High-grade papillary urothelial carcinoma. Focal superficial lamina propria invasion is noted. Muscle present and uninvolved. - BCG #6 (half doses) 05/25/24, required coude catheter. - Prior cysto 09/04/24 neg. - BCG x 3 09/2024. Pt had IO cysto to check for bladder tumor recurrence without complications today. Pt took prophylactic abx prior to procedure. Will send bladder wash specimen for FISH/cytol and call pt if positive. Follow up 3 mos surveillance cysto/bt ck/FISH/cytol or sooner if needed. Pt understands and agrees with plan. -Schedule BCG x 3 in 3 mos. 2. Elevated PSA (R97.20: Elevated prostate specific antigen [PSA]) PSA: 10/16/21 - 1.86 10/15/22 - 1.73 01/27/24 - 2.13 - TRUS/bx 2014. - MRI of prostate 12/03/22 - PI-RADS 5 lesion posterior L PZ mid base extending into midline 19 x 5 mm. No gross extracapsular extension. PI-RADS 4 posterior R PZ midline 13 x 11 mm. No gross extracapsular extension. Prostate volume 37 cc. - TRUS/bx 12/22/22 neg. - Prostate MRI 04/06/24 [facility] - No significant change since prior study. Lesion posterior L PZ level of the base extending into midline 10 x 5 mm. Another lesion posterior R PZ mid gland 13 x 11 mm. Prostate volume 30 cc. - S/p MRI fusion bx 09/04/24 - Benign. Necrotizing granulomatous prostatitis. No evidence of malignancy. 3. BPH with urinary obstruction (N40.1: Benign prostatic hyperplasia with lower urinary tract symptoms) Taking Alfuzosin 10 mg ER qd. 4. Prostate nodule (N40.2: Nodular prostate without lower urinary tract symptoms) Present for years. CHANI 02/03/24: ~nodule palpated R base to mid. 35g. 5. Kidney stone (N20.0: Calculus of kidney) CT AP wo IV con 12/24/22 [facility] - Nonobstructive mid pole right renal calculus 6. 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 Normal [facility] Comment on above: Result Comment: Elec tronically Signed By: Jarad VALDIVIA MD\.br\Date and Time Signed: 12/19/24 08:11 EDT\.br\Electronically Co-Signed By: Ligia Veras P\.br\Date and Time Co-Signed: 12/19/24 08:01 EDT\.br\Electronically Co-Signed By: Ligia Veras P\.br\Date and Time Co-Signed: 12/19/24 08:06 EDT\.br\Electronically Co-Signed By: Ligia Veras P\.br\Date and Time Co-Signed: 12/19/24 08:08 EDT CNNURSEon 11-08-2024 CNNURSE Nurse Visit (SAMAN) CHETVENITA ChanceJorge Alberto ([id number]) 1965 M Date Time Provider Department 11/08/24 10:30 AM [facility] NURSE KAI DAVISON During your visit today, we recorded the following information about you: Mary Alexis MA 11/08/2024 8:52 AM Signed UA performed as ordered for [place]. Mary Alexis MA Referring Provider: DARWIN QUINTEROS [[id number]] Allergies As of Date: 11/08/2024 (No Known Allergies) Date Reviewed: 11/02/2024 Reviewed by: Altagracia Reddy, HOLLAND - Fully Assessed Primary Visit Diagnosis:High risk medication use [Z79.899] Prescriptions as of 11/08/2024 - alfuzosin SR (UROXATRAL) 10 mg 24 hr tablet Take 10 mg by mouth once daily. Problem List As Of Date 11/08/2024 Noted Resolved Bladder cancer (HCC) [C67.9] 10/19/2024 Encounter Status:Closed by MARY ALEXIS on 11/08/24 Normal [facility] UA DIP, URINE (POC)on 2024 BILIRUBIN UA (POCT) Negative Negative [facility] CLARITY UA (POCT) Clear [facility] COLOR UA (POCT) Yellow [facility] GLUCOSE UA (POCT) Negative Negative mg/dL [facility] Hemoglobin Ql (U) Negative Negative [facility] Interpretation and review of laboratory results Abnormal [facility] KETONE UA (POCT) Negative Negative mg/dL [facility] LEUKOCYTES UA (POCT) Trace Abnormal Negative [facility] NITRITE UA (POCT) Negative Negative [facility] PH UA (POCT) 5.5 4.5 - 8.0 [facility] Protein Ql (U) Negative Negative mg/dL [facility] SPECIFIC GRAVITY UA (POCT) 1.02 1.005 - 1.030 [facility] UROBILINOGEN UA (POCT) 0.2 Gracy l E.U./dL [facility], [address] [place] [address] , [place], [place], [address] [facility] POINT OF CARE [facility] CNNURSEon 11-02-2024 CNNURSE Nurse Visit (HEMASA) VENITA ROSENBERG ([id number]) 1965 M Date Time Provider Department 11/02/24 2:00 PM [facility] NURSE KAI DAVISON During your visit today, we recorded the following information about you: Luana Le MA 11/02/2024 1:29 PM Signed Back office UA test performed. Results entered in EventBoard and doctor notified. Luana Le MA Referring Provider: DARWIN QUINTEROS [[id number]] Allergies As of Date: 11/02/2024 (No Known Allergies) Date Reviewed: 10/26/2024 Reviewed by: Altagracia Reddy, HOLLAND - Fully Assessed Primary Visit Diagnosis:High risk medication use [Z79.899] Prescriptions as of 11/02/2024 - alfuzosin SR (UROXATRAL) 10 mg 24 hr tablet Take 10 mg by mouth once daily. Problem List As Of Date 11/02/2024 Noted Resolved Bladder cancer (HCC) [C67.9] 10/19/2024 Encounter Status:Closed by LUANA LE on 11/02/24 Normal [facility] UA DIP, URINE (POC)on 2024 BILIRUBIN UA (POCT) Negative Negative [facility] CLARITY UA (POCT) Clear [facility] COLOR UA (POCT) Dark [facility] GLUCOSE UA (POCT) Negative Negative mg/dL [facility] Hemoglobin Ql (U) Trace-intact Abnormal Negative [facility] Interpretation and review of laboratory results Abnormal [facility] KETONE UA (POCT) Negative Negative mg/dL [facility] LEUKOCYTES UA (POCT) Negative Negative [facility] NITRITE UA (POCT) Negative Negative [facility] PH UA (POCT) 6.5 4.5 - 8.0 [facility] Protein Ql (U) Trace Abnormal Negative mg/dL [facility] SPECIFIC GRAVITY UA (POCT) 1.025 1.005 - 1.030 [facility] UROBILINOGEN UA (POCT) 0.2 Gracy l E.U./dL [facility] Location:[facility], [address] [place] [address] , [place], [place], [id number] [place] [address] POINT OF CARE [facility] CNPNon 10-31-2024 CNPN Telephone (HEMASA) VENITA ROSENBERG ([id number]) 1965 M Date Time Provider Department 10/31/24 [facility] GRIMES HEMASA During your visit today, we recorded the following information about you: Nichole Grimes, RN 10/31/2024 3:03 PM Signed CYCLE 1/DAY 1 POST TREATMENT CALL Today's date: October 31, 2024 Treatment Regimen: BCG C1D1 Date: 10/26/24 Called patient to follow-up on symptom management. Spoke with patient SYMPTOM ASSESSMENT Neuro: None CV/Resp: None GI/: Bladder/Urinary Changes: pt states for the first 2 days after treatment he experienced pink tinged urine, spasms, burning, urgency. These symptoms resolved after the second day. Denies any needs at this time. Integument: None Activity: Patient reported no changes in energy level, energy level good Pain: No=0 (pain 0 on a scale of 0-10). Fever: No Chills: No Any new referrals needed? No Reinforced CURRENT treatment education based on current and anticipated symptoms. Discussed port/line care and patient verbalizes understanding: Not Applicable Patient instructed to contact office or after hours Hematology/Oncology fellow for: temperature >= 100.4; questions or concerns. Patient verbalized understanding of when to seek medical attention and after hours number protocol. Nichole Grimes RN Allergies As of Date: 10/31/2024 (No Known Allergies) Date Reviewed: 10/26/2024 Reviewed by: Altagracia Reddy RN - Fully Assessed Reason for Visit: Care Coordination [[id number]] Cmt: C1D1 treatment follow up call Prescriptions as of 10/31/2024 - alfuzosin SR (UROXATRAL) 10 mg 24 hr tablet Take 10 mg by mouth once daily. Problem List As Of Date 10/31/2024 Noted Resolved Bladder cancer (HCC) [C67.9] 10/19/2024 Encounter Status:Closed by NICHOLE GRIMES on 10/31/24 Normal [facility] CBC W Auto Differential pane l (Bld)on 10-26-2024 Basophils (Bld) [#/Vol] 0.03 10*3/uL Normal <0.11 [facility] Comment on above: Order Comment: Speci men Type: BLOOD SPECIMENOrdering Facility: [facility] Address: [address] [place] [address] Performed By: #### 5 7021-8 ####[facility] LABCLIA [id number] [place] [address] Basophils/100 WBC (Bld) 0.7 % Normal [facility] Comment on above: Order Comment: Speci men Type: BLOOD SPECIMENOrdering Facility: [facility] Address: [address] [place] [address] Performed By: #### 5 7021-8 ####[facility] LABCLIA [id number] [place] [address] Differential cell count method Nom (Bld) Auto Normal [facility] Comment on above: Order Comment: Speci men Type: BLOOD SPECIMENOrdering Facility: [facility] Address: [address] [place] [address] Performed By: #### 5 7021-8 ####[facility] LABCL[facility] [id number] [place] [address] Eosinophils (Bld) [#/Vol] 10*3/uL Normal <0.46 [facility] Comment on above: Order Comment: Speci men Type: BLOOD SPECIMENOrdering Facility: [facility] Address: [address] [place] [address] Performed By: #### 5 7021-8 ####[facility]CL[facility] [id number] [place] [address] Eosinophils/100 WBC (Bld) 0.2 % Normal [facility] Comment on above: Order Comment: Speci men Type: BLOOD SPECIMENOrdering Facility: [facility] Address: [address] [place] [address] Performed By: #### 5 7021-8 ####[facility] LABCL[facility] [id number] [place] [address] Erythrocyte distribution width (RBC) [Ratio] 12.7 % Normal 11.5-15.0 [facility] Comment on above: Order Comment: Speci men Type: BLOOD SPECIMENOrdering Facility: [facility] Address: [address] [place] [address] Performed By: #### 5 7021-8 ####[facility]CLIA [id number] [place] [address] Hematocrit (Bld) [Volume fraction] 47.1 % Normal 39.0-51.0 [facility] Comment on above: Order Comment: Speci men Type: BLOOD SPECIMENOrdering Facility: [facility] Address: [address] [place] [address] Performed By: #### 5 7021-8 ####[facility] LABCLIA [id number] [place] [address] Hemoglobin (Bld) [Mass/Vol] 16.4 g/dL Normal 13.0-17.0 [facility] Comment on above: Order Comment: Speci men Type: BLOOD SPECIMENOrdering Facility: [facility] Address: [address] [place] [address] Performed By: #### 5 7021-8 ####[facility]CLIA [id number] [place] [address] Immature granulocytes (Bld) [#/Vol] 10*3/uL Normal <0.10 [facility] Comment on above: Order Comment: Speci men Type: BLOOD SPECIMENOrdering Facility: [facility] Address: [address] [place] [address] Performed By: #### 5 7021-8 ####[facility]CL[facility] [id number] [place] [address] Immature granulocytes/100 WBC (Bld) 0.0 % Normal [facility] Comment on above: Order Comment: Speci men Type: BLOOD SPECIMENOrdering Facility: [facility] Address: [address] [place] [address] Performed By: #### 5 7021-8 ####[facility]CLIA [id number] [place] [address] Lymphocytes (Bld) [#/Vol] 1.11 10*3/uL Normal 1.00-4.00 [facility] Comment on above: Order Comment: Speci men Type: BLOOD SPECIMENOrdering Facility: [facility] Address: [address] [place] [address] Performed By: #### 5 7021-8 ####[facility]CLIA [id number] [place] [address] Lymphocytes/100 WBC (Bld) 26.2 % Normal [facility] Comment on above: Order Comment: Speci men Type: BLOOD SPECIMENOrdering Facility: [facility] Address: [address] [place] [address] Performed By: #### 5 7021-8 ####[facility]CLIA [id number] [place] [address] MCH (RBC) [Entitic mass] 31.1 pg Normal 26.0-34.0 [facility] Comment on above: Order Comment: Speci men Type: BLOOD SPECIMENOrdering Facility: [facility] Address: [address] [place] [address] Performed By: #### 5 7021-8 ####[facility]CLIA [id number] [place] [address] MCHC (RBC) [Mass/Vol] 34.8 g/dL Normal 30.5-36.0 [facility] Comment on above: Order Comment: Speci men Type: BLOOD SPECIMENOrdering Facility: [facility] Address: [address] [place] [address] Performed By: #### 5 7021-8 ####[facility] LABCLIA [id number] [place] [address] MCV (RBC) [Entitic vol] 89.4 fL Normal 80.0-100.0 [facility] Comment on above: Order Comment: Speci men Type: BLOOD SPECIMENOrdering Facility: [facility] Address: [address] [place] [address] Performed By: #### 5 7021-8 ####[facility]CL[facility] [id number] [place] [address] Monocytes (Bld) [#/Vol] 0.42 10*3/uL Normal <0.87 [facility] Comment on above: Order Comment: Speci men Type: BLOOD SPECIMENOrdering Facility: [facility] Address: [address] [place] [address] Performed By: #### 5 7021-8 ####[facility]CL[facility] [id number] [place] [address] Monocytes/100 WBC (Bld) 9.9 % Normal [facility] Comment on above: Order Comment: Speci men Type: BLOOD SPECIMENOrdering Facility: [facility] Address: [address] [place] [address] Performed By: #### 5 7021-8 ####[facility]CL[facility] [id number] [place] [address] Neutrophils (Bld) [#/Vol] 2.67 10*3/uL Normal 1.45-7.50 [facility] Comment on above: Order Comment: Speci men Type: BLOOD SPECIMENOrdering Facility: [facility] Address: [address] [place] [address] Performed By: #### 5 7021-8 ####[facility]CL[facility] [id number] [place] [address] Neutrophils/100 WBC (Bld) 63.0 % Normal [facility] Comment on above: Order Comment: Speci men Type: BLOOD SPECIMENOrdering Facility: [facility] Address: [address] [place] [address] Performed By: #### 5 7021-8 ####[facility]CLIA [id number] [place] [address] Nucleated RBC (Bld) [#/Vol] 10*3/uL Normal <0.01 [facility] Comment on above: Order Comment: Speci men Type: BLOOD SPECIMENOrdering Facility: [facility] Address: [address] [place] [address] Performed By: #### 5 7021-8 ####[facility]CLIA [id number] [place] [address] Nucleated RBC/100 WBC (Bld) [Ratio] 0.0 /100 WBC Normal [facility] Comment on above: Order Comment: Speci men Type: BLOOD SPECIMENOrdering Facility: [facility] Address: [address] [place] [address] Performed By: #### 5 7021-8 ####[facility]CL[facility] [id number] [place] [address] Platelet mean volume (Bld) [Entitic vol] 9.1 fL Normal 9.0-12.7 [facility] Comment on above: Order Comment: Speci men Type: BLOOD SPECIMENOrdering Facility: [facility] Address: [address] [place] [address] Performed By: #### 5 7021-8 ####[facility]CLIA [id number] [place] [address] Platelets (Bld) [#/Vol] 198 10*3/uL Normal 150-400 [facility] Comment on above: Order Comment: Speci men Type: BLOOD SPECIMENOrdering Facility: [facility] Address: [address] [place] [address] Performed By: #### 5 7021-8 ####[facility]CL[facility] [id number] [place] [address] RBC (Bld) [#/Vol] 5.27 10*6/uL Normal 4.20-6.00 [facility] Comment on above: Order Comment: Speci men Type: BLOOD SPECIMENOrdering Facility: [facility] Address: [address] [place] [address] Performed By: #### 5 7021-8 ####[facility] LABCLIA [id number] [place] [address] WBC (Bld) [#/Vol] 4.24 10*3/uL Normal 3.70-11.00 [facility] Comment on above: Order Comment: Speci men Type: BLOOD SPECIMENOrdering Facility: [facility] Address: [address] [place] [address] Performed By: #### 5 7021-8 ####[facility]CLIA [id number] [place] [address] [facility] CBC W AUTO DIFF BLDon Basophils/100 WBC (Bld) 0.7 % [facility] BASOPHILS # BLD AUTO 0.03 [facility] DIFFERENTIAL METHOD BLD Auto [facility] EOSINOPHIL # BLD AUTO <0.03 [facility] LYMPHOCYTES # BLD AUTO 1.[address] [facility] MONOCYTES # BLD AUTO 0.42 [facility] NEUTROPHILS # BLD AUTO 2.[address] [facility] NRBC # BLD AUTO <0.01 [facility] NRBC/100 WBC BLD-RTO 0 /[address] [facility] PLATELET # BLD AUTO [address] [facility] PMV BLD AUTO 9.1 fL 9.0 - 12.[address] [facility] WBC # BLD AUTO 4.[address] [facility] Eosinophils/100 WBC (Bld) 0.2 % [facility] Erythrocyte distribution width (RBC) [Ratio] 12.7 % 11.5 - 15.0 % [facility] Hematocrit (Bld) [Volume fraction] 47.1 % 39.0 - 51.0 % [facility] Hemoglobin (Bld) [Mass/Vol] 16.4 g/dL 13.0 - 17.0 g/dL [facility] IMM GRANULOCYTES # BLD AUTO <0.03 [facility] IMM GRANULOCYTES/LEUK NFR BLD AUTO 0 % [facility] Lymphocytes/100 WBC (Bld) 26.2 % [facility] MCH (RBC) [Entitic mass] 31.1 pg 26.0 - 34.[address] [facility] MCHC (RBC) [Mass/Vol] 34.8 g/dL 30.5 - 36.0 g/dL [facility] MCV (RBC) [Entitic vol] 89.4 fL 80.0 - 100.[address] [facility] Monocytes/100 WBC (Bld) 9.9 % [facility] Neutrophils/100 WBC (Bld) 63 % [facility] RBC (Bld) [#/Vol] 5.27 10*6/uL 4.20 - 6.00 m/uL [facility] Specimen Type: BLOOD SPECIMEN [facility] Address: [address] [place] [address] Original Ordering Provider: DARWIN LEROY [facility] CNNURSEon 10-26-2024 CNNURSE Nurse Visit (HEMASA) VENITA ROSENBERG ([id number]) 1965 M Date Time Provider Department 10/26/24 2:30 PM [facility] NURSE KAI DAVISON During your visit today, we recorded the following information about you: Luana Le MA 10/31/2024 12:57 PM Signed Back office UA test performed. Results entered in EventBoard and doctor notified. Luana Le MA Referring Provider: DARWIN QUINTEROS [[id number]] Allergies As of Date: 10/26/2024 (No Known Allergies) Date Reviewed: 10/26/2024 Reviewed by: Altagracia Reddy, HOLLAND - Fully Assessed Primary Visit Diagnosis:High risk medication use [Z79.899] Prescriptions as of 10/31/2024 - alfuzosin SR (UROXATRAL) 10 mg 24 hr tablet Take 10 mg by mouth once daily. Problem List As Of Date 10/26/2024 Noted Resolved Bladder cancer (HCC) [C67.9] 10/19/2024 Encounter Status:Closed by LUANA LE on 10/31/24 [facility] Nurse Visit (HEMASA) VENITA ROSENBERG ([id number]) 1965 M Date Time Provider Department 10/26/24 2:00 PM NICHOLE GRIMES During your visit today, we recorded the following information about you: Nichole Grimes RN 10/26/2024 1:54 PM Signed ONCOLOGY PATIENT EDUCATION NOTE TOPIC: Chemotherapy, Medications: BCG patient and spouse here today for education for treatment of Bladder Cancer Anticipated/Scheduled start date: today READINESS TO LEARN: COGNITIVE ABILITY: Alert and oriented MOTIVATION TO LEARN: Interested FAMILY SUPPORT: High - Very involved in pt care INSTRUCTION PROVIDED TO: Patient and Spouse INSTRUCTION PROVIDED BY: Nurse Coordinator PATIENT LEARNS BEST BY: Multiple Methods FACTORS AFFECTING LEARNING: None PHYSICAL LIMITATIONS AFFECTING LEARNING: None LEARNING RESPONSE METHOD OF INSTRUCTION: Individual instruction Written instruction/Handouts Verbal instruction PATIENT/FAMILY RESPONSE: Verbalizes understanding of: CHEMOTHERAPY-Regimen, toxicity and side effects EQUIPMENT USE-Correct use of Equipment INFECTION MANAGEMENT-Signs and symptoms of an infection and importance of contacting the physician MEDICAL REGIMEN-Importance of following prescribed medical regimen MEDICATION PRESCRIBED-Accurate knowledge of prescribed medication prior to discharge MEDICATION ROUTE-Correct route for administration of the prescribed medication MEDICATION SIDE EFFECTS-Side effects associated with the medication that warrant a call to the physician PATIENT SAFETY PRINCIPLES SYMPTOM MANAGEMENT-Correct actions to take to manage symptoms associated with his/her disease/illness WORSENING CONDITION-Signs and symptoms of a worsening condition that warrant a call to the physician Information received as demonstrated by interest and questions FOLLOW UP PLAN: Patient instructed to call with any further issues Recommend - Recommend continued instruction and follow up as directed Follow up phone call. Contact information given. SUPPLEMENTAL MATERIAL: Written material was provided at this visit with the following information: - Chemotherapy education was provided by a pharmacist NO - Side effect management information was provided/discussed including but not limited to: abdominal discomfort, anemia, bowel habit changes, chest pain, diet, electrolyte disturbances, fatigue, headache, hypersensitivity reaction, infection, kidney toxicity, nausea/vomitting, neutropenia, rash, risk for DVT, shortness of breath, skin changes, thrombocytopenia, bladder inflammation, hematuria, bladder spasms YES - Provided important phone numbers and contacts during and after hours. YES - Provided information on symptoms that require immediate assistance. YES - Provided Chemotherapy when to call handouts YES - Preventing infection. YES - Treatment schedule and confirmation of appointment times. YES - Available support groups. NA - The importance of contraception during the course of chemotherapy YES - Neutropenic fever protocol discussed with patient, which included the importance of reporting any fever of 100.4F (38.0C) or greater to the healthcare team as noted on the provided wallet card and/or magnet. YES - Cancer Wellness Program Pamphlet. YES - 4th Jacques Information. YES - Patient services information. YES -pt has had 6 BCG treatments prior to coming to our office. Time Spent: 20 minutes REFERRAL (RECOMMENDATION): N/A Nichole Grimes RN Allergies As of Date: 10/26/2024 (No Known Allergies) Date Reviewed: 10/26/2024 Reviewed by: Mary Alexis MA - Fully Assessed Reason for Visit: First Time Treatment Education [7049] Primary Visit Diagnosis:Malignant neoplasm of urinary bladder neck (HCC) [C67.5] Prescriptions as of 10/26/2024 - alfuzosin SR (UROXATRAL) 10 mg 24 hr tablet Take 10 mg by mouth once daily. Facility-Administered Medications as of 10/26/2024 - lidocaine urojet 2 % 11 mL topical gel (GLYDO) - bcg 50 mg in NaCl 0.9% 50 mL - NaCl 0.9% iv infusion - diphenhydrAMINE 50 mg injection (BENADRYL) - hydrocortisone sodium succinate (PF) 100 mg injection (Solu-CORTEF) - EPINEPHrine 1 mg/mL (1 mL) 0.3 mg injection Problem List As Of Date 10/26/2024 Noted Resolved Bladder cancer (HCC) [C67.9] 10/19/2024 Encounter Status:Closed by NICHOLE GRIMES on 10/26/24 [facility] CNOVSPon 10-26-2024 CNOVSP Visit (SP) Office (H [facility]AS[facility]) VENITA ROSENBERG ([id number]) 1965 M Date Time Provider Department 10/26/24 1:00 PM DARWIN QUINTEROS During your visit today, we recorded the following information about you: Temperature Pulse Respiration Blood pressure 97.6 degrees 79/minute 16/minute 139/89 Weight 60.9 kg Darwin Quinteros MD 10/26/2024 1:11 PM Signed PATIENT NAME: Venita Rosenberg CLINIC NO.: [id number] ATTENDING PHYSICIAN: Darwin Quinteros MD DATE OF SERVICE: 10/26/[address] Jarad Valdivia [address] [facility] [address] thank you for referring Venita Rosenberg for an opinion regarding h/o bladder cancer. Some of the elements of this note have been copied from my previous progress note dated 10/19/24. All the information has been reviewed carefully. CHIEF COMPLAINT: Bladder cancer HPI: Venita Rosenberg is a 59 year old year old male with h/o bladder cancer diagnosed in 2011 s/p TURBT. TURBT (03/02/24) - high grade papillary urothelial carcinoma. Muscularis propria negative for invasion. S/p 6 weekly BCG treatments in Apr 2024. Prostate biopsy (09/04/24)- Benign prostate tissue with focal chronic inflammation. Last cystoscopy was in Aug 2024. Normal bladder. Doing well No major complaints. No smoking Occasional alcohol. 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 No current facility-administered medications for this visit. 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 Elevated prostate specific antigen (PSA) Hematuria Kidney stone Prostate nodule Renal atrophy PAST SURGICAL HISTORY Procedure Laterality Date CYSTOSCOPY x6 CYSTOSCOPY PAST SURGICAL HISTORY OF 03/01/2024 TURBT PAST SURGICAL HISTORY OF 12/22/2022 Transrectal needle biopsy of prostate PAST SURGICAL HISTORY OF 08/19/2015 Transrectal biopsy of prostate using ultrasound PAST SURGICAL HISTORY OF 05/30/2012 Cystoscopy with removal of ureteric stent PAST SURGICAL HISTORY OF 05/18/2012 Cystoscopy and transurethral resection of bladder tumor PAST SURGICAL HISTORY OF Tonsillectomy REMOVAL GALLBLADDER FAMILY HISTORY Problem Relation Age of Onset Breast Cancer Mother Cervical Cancer Mother Cervical Cancer Sister Breast Cancer Sister Social History Tobacco Use Smoking status: Former Types: Cigarettes Smokeless tobacco: Current Vaping Use Vaping status: Never Used Substance Use Topics Alcohol use: Never Drug use: Never REVIEW OF SYSTEMS GENERAL: No weight loss, malaise or fevers. No night sweats. HEENT: Negative for headaches, No changes in hearing or vision, no nose bleeds or other nasal problems. RESPIRATORY: Negative for cough, wheezing and shortness of breath CARDIOVASCULAR: Negative for chest pain, leg swelling and palpitations GI: Negative for abdominal discomfort, blood in stools or black stools and change in bowel habits : Negative for dysuria, frequency and incontinence MUSCULOSKELETAL: Negative for joint pain or swelling, back pain, and muscle pain. SKIN: Negative for lesions, rash, and itching. HEMATOLOGY/LYMPHOLOGY Negative for prolonged bleeding, bruising easily, and swollen nodes. NEURO: Negative for numbness or tingling of hands/feet. No weakness. PHYSICAL EXAMINATION: There were no vitals taken for this visit. There were no vitals taken for this visit. No data found for this vital: Wt General appearance:ECOG PERFORMANCE STATUS: 0- Fully active, able to carry on all pre-disease performance w/o restriction. Patient in NAD. Skin: Skin color, texture, turgor normal. No rashes or lesions. Eyes: Anicteric sclera. Pupils are equally round and reactive to light. Extraocular movements are intact. Breast: No palpable breast masses. No nipple change or discharge. Lymph Nodes: No cervical, supraclavicular, axillary or inguinal adenopathy. Oropharynx: Lips, mucosa, and tongue normal. Back: No pain to percussion. Negative SLR test Lungs clear to auscultation, No wheezing or rhonchi Heart: RRR without murmur, gallop, or rubs. Abdomen soft, non-tender. No masses, organomegaly Extremities: No deformities. No edema Neuro: Gait and speech normal. Reflexes normal and symmetric. Muscular strength intact. Sensation grossly intact. Rectal: Deferred : Deferred LABS: No results found for: GLUC , K , NA , CHLOR , CO2 , CREAT , BUN , ANION , CA , TPROT , ALB , TBILI , ALKPHOS , AST , ALT No results found for: WBC , RBC , HB , HCT , MCV , MCH , MCHC , RDWCV , PLT , MPV , NEUT , ABSNEUT , (more content not included)... Normal [facility] Concepcion 10-26-2024 [facility] VEN[facility] ([id number]) 1965 M Date Time Provider Department 10/26/24 [facility] During your visit today, we recorded the following information about you: Suleman Armijo 10/26/2024 1:11 PM Signed Patient to be referred to [facility] GI re: Liver cirrhosis on CT scan in December 2022. Adamaris: Information is ready for you. Thanks! Altagracia Bhagat 10/29/2024 9:53 AM Signed Records faxed to [facility]. Gayathri Rothman 10/30/2024 10:38 AM Signed Called [facility]. Their office has received this referral, their pool coordinator is currently working on this referral and will be calling patient to get scheduled. Mildred Falcon 11/01/2024 11:36 AM Signed Spoke with [facility] [phone]. Patient is scheduled for 12/31/24. Allergies As of Date: 10/26/2024 (No Known Allergies) Date Reviewed: 10/26/2024 Reviewed by: Altagracia Reddy RN - Fully Assessed Reason for Visit: Referral Information [8713] Cmt: GI Prescriptions as of 11/05/2024 - alfuzosin SR (UROXATRAL) 10 mg 24 hr tablet Take 10 mg by mouth once daily. Problem List As Of Date 10/26/2024 Noted Resolved Bladder cancer (HCC) [C67.9] 10/19/2024 Encounter Status:Closed by MILDRED SORTO on 11/01/24 Normal [facility] Comprehensive metabolic 2000 panelon 10-26-2024 Albumin [Mass/Vol] 4.3 g/dL Normal 3.9-4.9 [facility] Comment on above: Order Comment: Speci men Type: BLOOD SPECIMENOrdering Facility: [facility] Address: [address] [place] [address] Performed By: #### 2 4323-8 ####[facility] LABCLIA [id number] [place] [address] ALP [Catalytic activity/Vol] 86 U/L Normal 38-113 [facility] Comment on above: Order Comment: Speci men Type: BLOOD SPECIMENOrdering Facility: [facility] Address: [address] [place] [address] Performed By: #### 2 4323-8 ####[facility] LABCLIA [id number] [place] [address] ALT [Catalytic activity/Vol] 12 U/L Normal 10-54 [facility] Comment on above: Order Comment: Speci men Type: BLOOD SPECIMENOrdering Facility: [facility] Address: [address] [place] [address] Performed By: #### 2 4323-8 ####[facility] LABCLIA [id number] [place] [address] Anion gap [Moles/Vol] 5 mmol/L Low 8-15 [facility] Comment on above: Order Comment: Speci men Type: BLOOD SPECIMENOrdering Facility: [facility] Address: [address] [place] [address] Performed By: #### 2 4323-8 ####[facility] LABCLIA [id number] [place] [address] AST [Catalytic activity/Vol] 14 U/L Normal 14-40 [facility] Comment on above: Order Comment: Speci men Type: BLOOD SPECIMENOrdering Facility: [facility] Address: [address] [place] [address] Performed By: #### 2 4323-8 ####[facility] LABCLIA [id number] [place] [address] Bilirubin [Mass/Vol] 0.5 mg/dL Normal 0.2-1.3 [facility] Comment on above: Order Comment: Speci men Type: BLOOD SPECIMENOrdering Facility: [facility] Address: [address] [place], [place] [address] Performed By: #### 2 4323-8 ####[facility] LABCLIA [id number] [place] [address] Calcium [Mass/Vol] 9.8 mg/dL Normal 8.5-10.2 [facility] Comment on above: Order Comment: Speci men Type: BLOOD SPECIMENOrdering Facility: [facility] Address: [address] [place] [address] Performed By: #### 2 4323-8 ####[facility] LABCLIA [id number] [place] [address] Chloride [Moles/Vol] 106 mmol/L Normal 98-107 [facility] Comment on above: Order Comment: Speci men Type: BLOOD SPECIMENOrdering Facility: [facility] Address: [address] [place] [address] Performed By: #### 2 4323-8 ####[facility] LABCLIA [id number] [place] [address] CO2 [Moles/Vol] 29 mmol/L Normal 22-30 [facility] Comment on above: Order Comment: Speci men Type: BLOOD SPECIMENOrdering Facility: [facility] Address: [address] [place] [address] Performed By: #### 2 4323-8 ####[facility] LABCLIA [id number] [place] [address] Creatinine [Mass/Vol] 0.94 mg/dL Normal 0.73-1.22 [facility] Comment on above: Order Comment: Speci men Type: BLOOD SPECIMENOrdering Facility: [facility] Address: [address] [place] [address] Performed By: #### 2 4323-8 ####[facility]CLIA [id number] [place] [address] Creatinine and Glomerular filtration rate.predicted panel (S/P/Bld) 93 mL/min/1.73m??? Normal >=60 [facility] Comment on above: Order Comment: Speci men Type: BLOOD SPECIMENOrdering Facility: [facility] Address: [address] [place] [address] Result Comment: Lee Ann mated Glomerular Filtration Rate (eGFR) is calculated using the 2020 CKD-EPI creatinine equation. This equation utilizes serum creatinine, sex, and age as parameters. The creatinine assay has traceable calibration to isotope dilution-mass spectrometry. Refer to KDIGO guidelines for clinical interpretation. In patients with unstable renal function, e.g. those with acute kidney injury, the eGFR may not accurately reflect actual GFR. Performed By: #### 2 4323-8 ####[facility] LABCLIA [id number] [place] [address] Glucose [Mass/Vol] 98 mg/dL Normal 74-99 [facility] Comment on above: Order Comment: Speci men Type: BLOOD SPECIMENOrdering Facility: [facility] Address: [address] [place] [address] Result Comment: The [place] Diabetes Association (ADA) provides guidance for cutoff [...] Standards of Medical Care in Diabetes 2016, [place] Diabetes Association. Diabetes Care. 2016.39(Suppl 1). Performed By: #### 2 4323-8 ####[facility] LABCLIA [id number] [place] [address] Potassium [Moles/Vol] 4.7 mmol/L Normal 3.7-5.1 [facility] Comment on above: Order Comment: Tramainei panchito Type: BLOOD SPECIMENOrdering Facility: [facility] Address: [address] [place] [address] Performed By: #### 2 4323-8 ####[facility] LABCLIA [id number] [place] [address] Protein [Mass/Vol] 7.2 g/dL Normal 6.3-8.0 [facility] Comment on above: Order Comment: Speci men Type: BLOOD SPECIMENOrdering Facility: [facility] Address: [address] [place], [place] [id number] Performed By: #### 2 4323-8 ####[facility] LABCLIA [id number] [place] [address] Sodium [Moles/Vol] 140 mmol/L Normal 136-144 [facility] Comment on above: Order Comment: Speci men Type: BLOOD SPECIMENOrdering Facility: [facility] Address: [address] [place] [address] Performed By: #### 2 4323-8 ####[facility] LABCLIA [id number] [place] [address] Urea nitrogen [Mass/Vol] 13 mg/dL Normal 9-24 [facility] Comment on above: Order Comment: Speci men Type: BLOOD SPECIMENOrdering Facility: [facility] Address: [address] [place] [address] Performed By: #### 2 4323-8 ####[facility] LABCLIA [id number] [place] [address] CNOVSPon 10-19-2024 [facility] Visit (SP) Office ( [facility]) VENITA ROSENBERG ([id number]) 1965 M Date Time Provider Department 10/19/24 4:00 PM DARWIN QUINTEROS During your visit today, we recorded the following information about you: Temperature Pulse Respiration Blood pressure 97.5 degrees 99/minute 16/minute 153/90 Weight Height 61.2 kg 1.754 m Darwin Quinteros MD 10/19/2024 4:21 PM Signed PATIENT NAME: Venita Rosenberg [facility] NO.: [id number] ATTENDING PHYSICIAN: Darwin Quinteros MD DATE OF SERVICE: October 19, [address] Jarad Valdivia [address] [facility] [address] thank you for referring Venita Rosenberg for an opinion regarding h/o bladder cancer. CHIEF COMPLAINT: Bladder cancer HPI: Venita Rosenberg is a 59 year old year old male with h/o bladder cancer diagnosed in 2011 s/p TURBT. TURBT (03/02/24) - high grade papillary urothelial carcinoma. Muscularis propria negative for invasion. S/p 6 weekly BCG treatments in Apr 2024. Prostate biopsy (09/04/24)- Benign prostate tissue with focal chronic inflammation. Last cystoscopy was in Aug 2024. Normal bladder. Doing well No major complaints. No smoking Occasional alcohol. 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 No current outpatient medications on file. No current facility-administered medications for this visit. ALLERGIES Not on File No past medical history on file. No past surgical history on file. No family history on file. REVIEW OF SYSTEMS GENERAL: No weight loss, malaise or fevers. No night sweats. HEENT: Negative for headaches, No changes in hearing or vision, no nose bleeds or other nasal problems. RESPIRATORY: Negative for cough, wheezing and shortness of breath CARDIOVASCULAR: Negative for chest pain, leg swelling and palpitations GI: Negative for abdominal discomfort, blood in stools or black stools and change in bowel habits : Negative for dysuria, frequency and incontinence MUSCULOSKELETAL: Negative for joint pain or swelling, back pain, and muscle pain. SKIN: Negative for lesions, rash, and itching. HEMATOLOGY/LYMPHOLOGY Negative for prolonged bleeding, bruising easily, and swollen nodes. NEURO: Negative for numbness or tingling of hands/feet. No weakness. PHYSICAL EXAMINATION: There were no vitals taken for this visit. There were no vitals taken for this visit. No data found for this vital: Wt General appearance:ECOG PERFORMANCE STATUS: 0- Fully active, able to carry on all pre-disease performance w/o restriction. Patient in NAD. Skin: Skin color, texture, turgor normal. No rashes or lesions. Eyes: Anicteric sclera. Pupils are equally round and reactive to light. Extraocular movements are intact. Breast: No palpable breast masses. No nipple change or discharge. Lymph Nodes: No cervical, supraclavicular, axillary or inguinal adenopathy. Oropharynx: Lips, mucosa, and tongue normal. Back: No pain to percussion. Negative SLR test Lungs clear to auscultation, No wheezing or rhonchi Heart: RRR without murmur, gallop, or rubs. Abdomen soft, non-tender. No masses, organomegaly Extremities: No deformities. No edema Neuro: Gait and speech normal. Reflexes normal and symmetric. Muscular strength intact. Sensation grossly intact. Rectal: Deferred : Deferred LABS: No results found for: GLUC , K , NA , CHLOR , CO2 , CREAT , BUN , ANION , CA , TPROT , ALB , TBILI , ALKPHOS , AST , ALT No results found for: WBC , RBC , HB , HCT , MCV , MCH , MCHC , RDWCV , PLT , MPV , NEUT , ABSNEUT , LYMPHP , ABSLYMPH , MONOP , ABSMONO , EOSINP , ABSEOSIN , BASOP , ABSBASO PATH: IMAGING: ASSESSMENT AND PLAN: Venita Rosenberg is a 59 year old year old male referred to us for h/o non muscle invasive bladder cancer. Liver cirrhosis on CT scan in December 2022. PS 0 PLAN: - He underwent TURBT (03/02/24) - high grade papillary urothelial carcinoma. Muscularis propria negative for invasion. S/p 6 weekly BCG treatments in Apr 2024. - We will start him on maintenance weekly BCG treatments x 3. - Last cystoscopy was in Aug 2024 - Check CBC CMP - All his questions answered in detail - F/u in [address] Jarad Valdivia [address] [facility] [address] thank you for allowing me to participate in Venita Rosenberg care, if there are any questions or concerns please do not hesitate to contact me at the number below. I spent a total of 60 minutes on the date of the service which included preparing to see the patient, [id number] patient care, completing clinical documentation, obtaining and/or reviewing separately obtained history, performing a medically appropriate examination, counseling and educating the patient/family/caregiver, ordering medications, tests, or procedures, communicating with other HCPs (not separately reported (more content not included)... Normal [facility] Concepcion 10-19-2024 [facility] Telephone ([facility]) VENITA ROSENBERG ([id number]) 1965 M Date Time Provider Department 10/19/24 DARWIN QUINTEROS HEMTENZIN During your visit today, we recorded the following information about you: Darwin Quinteros MD 10/19/2024 4:18 PM Signed Please load maintenance BCG treatments weekly x 3, starting next week in the [facility]. Thank you Allergies As of Date: 10/19/2024 (No Known Allergies) Date Reviewed: 10/19/2024 Reviewed by: Teresa Darling RN - Fully Assessed Primary Visit Diagnosis:Malignant neoplasm of urinary bladder, unspecified site (HCC) [C67.9] Prescriptions as of 10/23/2024 - alfuzosin SR (UROXATRAL) 10 mg 24 hr tablet Take 10 mg by mouth once daily. Problem List As Of Date 10/19/2024 Noted Resolved Bladder cancer (HCC) [C67.9] 10/19/2024 Encounter Status:Closed by MARJORIE FRY on 10/23/24 [facility] Ambulatory Visit Summaryon 1 11-18-2023 Ambulatory Visit Summary Ambulatory Visit Summary VENITA ROSENBERG :1965 Visit Date:09/17/2024 Ambulatory Visit Instructions Your Diagnosis Elevated PSA Personal history of bladder cancer BPH with urinary obstruction Prostate nodule Kidney stone Duplicated renal collecting system Renal atrophy Your Care Team Attending Physician - SHEA JARA, Jarad Hendrickson Primary Care Physician - RICKY JARA, PARTH Cummins This Is Your Medications List alfuzosin (alfuzosin 10 mg ER Tab) Procedures Performed TURBT - Transurethral resection of bladder tumor (03/01/2024), Flexible cystoscopy (02/03/2024), Transrectal needle biopsy of prostate (12/22/2022), Cystoscopy (10/22/2022), Cystoscopy (10/23/2021), Cystoscopy (09/10/2020), Cystoscopy (09/25/2019), Cystoscopy (09/05/2018), Transrectal biopsy of prostate using ultrasound (US) guidance (08/19/2015), Cystoscopic removal of ureteric stent (05/30/2012), Cystoscopy and transurethral resection of bladder tumour (05/18/2012), History of cholecystectomy, History of tonsillectomy. Discharge Vitals Temperature (Oral) 37 ???C Heart Rate (Peripheral) 90 Respiratory Rate 18 Blood Pressure 136/84 Height 180 cm Height 71 in Weight 59 kg Weight 130.073 lb BMI 18.21 What to do next You Need to Schedule the Following Appointments Follow Up with SHEA JARA, RAMON Crisostomo When: Where: [facility] [address] , [place] [address]- [phone] Medications What How Much When Instructions Unchanged alfuzosin (alfuzosin 10 mg ER Tab) 1 Tablets By Mouth Every day Allergies No Known Allergies No Known Medication Allergies Problems Ongoing - Any problem that you are currently receiving treatment for. 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 Please share your experience with us by completing your survey. We appreciate your feedback and thank you for choosing us for your care. Education Materials Cystoscopy Cystoscopy is a procedure that is used to help diagnose and sometimes treat conditions that affect the lower urinary tract. The lower urinary tract includes the bladder and the urethra. The urethra is the tube that drains urine from the bladder. Cystoscopy is done using a thin, tube-shaped instrument with a light and camera at the end (cystoscope). The cystoscope may be hard or flexible, depending on the goal of the procedure. The cystoscope is inserted through the urethra, into the bladder. Cystoscopy may be recommended if you have: ??? Urinary tract infections that keep coming back. ??? Blood in the urine (hematuria). ??? An inability to control when you urinate (urinary incontinence) or an overactive bladder. ??? Unusual cells found in a urine sample. ??? A blockage in the urethra, such as a urinary stone. ??? Painful urination. ??? An abnormality in the bladder found during an intravenous pyelogram (IVP) or CT scan. Cystoscopy may also be done to remove a sample of tissue to be examined under a microscope (biopsy). Tell a health care provider about: ??? Any allergies you have. ??? All medicines you are taking, including vitamins, herbs, eye drops, creams, and bddq-ene-vzvzznl medicines. ??? Any problems you or family members have had with anesthetic medicines. ??? Any blood disorders you have. ??? Any surgeries you have had. ??? Any medical conditions you have. ??? Whether you are or may be . What are the risks? Generally, this is a safe procedure. However, problems may occur, including: ??? Infection. ??? Bleeding. ??? Allergic reactions to medicines. ??? Damage to other structures or organs. What happens before the procedure? Medicines Ask your health care provider about: ??? Changing or stopping your regular medicines. This is especially important if you are taking diabetes medicines or blood thinners. ??? Taking medicines such as aspirin and ibuprofen. These medicines can thin your blood. Do not take these medicines unless your health care provider tells you to take them. ??? Taking [id number] medicines, vitamins, herbs, and supplements. Tests You may have an exam or testing, such as: ??? X-rays of the bladder, urethra, or kidneys. ??? CT scan of the abdomen or pelvis. ??? Urine tests to check for signs of infection. General instructions ??? Follow instructions from your health care provider about eating or drinking restrictions. ??? Ask your health care provider what steps will be taken to help prevent infection. These steps may include: ? Washing skin with a germ-kill (more content not included)... Normal [facility] Urology Office/Clinic Noteon 09-17-2024 Urology Office/Clinic Note Urology Office/Clinic Note Chief Complaint review path results HPI Staff 59yr old male pt here for f/u to MRI fusion bx/cysto done on 09/04/24 & to review path. Last BCG done 05/25/24. Unable to provide urine sample today. Denies any complications today. Previous Dx: bladder cancer Dysuria: denies Incomplete bladder emptying: Hematuria: denies Frequency: denies Urgency: denies Nocturia: 1x per night Stream: good stream Leaking: denies Post void dripping: denies Wearing pads/ Depends: denies Urge incontinence: denies Stress incontinence: denies Incontinence without Sensory Awareness: denies Abdominal pain: denies Flank pain: denies Sexual complaints: denies History of Present Illness Tests reviewed: reviewed operative note, path report I have reviewed the previous health record information and history for this patient from Dr. Valdivia and CHARLES Christopher. I have reviewed and verified the staff HPI to be accurate for this encounter. Review of Systems PHQ Score Initial [...] See HPI. Physical Exam Vitals & Measurements T: 37 ???C(Oral) HR: 90(Peripheral) RR: 18 BP: 136/84 HT: 71 in HT: 180 cm WT: 59 kg WT: 130.073 lb BMI: 18.21 General Appearance: alert, no distress, well nourished, well developed male. Assessment/Plan 1. Elevated PSA (R97.20: Elevated prostate specific antigen [PSA]) PSA: 10/16/21 - 1.86 10/15/22 - 1.73 01/27/24 - 2.13 TRUS/bx 2014. MRI of prostate 12/03/22 PI-RADS 4 and PI-RADS 5 lesions. TRUS/bx 12/22/22 neg. [1] Prostate MRI 04/06/24 [facility] [place] Prostate volume 30mL. T2 hypointensity seen involving posterior aspect of R peripheral zone at level of mid gland measuring 13 x 11 mm with restricted diffusion and low ADC value. No evidence of extraprostatic extension. Additional T2 hypointensity involving posterior aspect of L peripheral zone at level of base extending into midline measuring 10 x 5 mm ith restricted diffusion and low ADC value. No gross extraprostatic extension seen. No significant change since prior study. S/p MRI fusion bx 09/04/24 - Benign. 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 Advised pt changes on MRI were likely related to BCG tx. The pathology report was reviewed with the patient in detail today. There is no evidence of malignancy and no further evaluation of the tissue removed is planned. All questions were answered and the report discussed in terms that the patient could understand. -Cont close PSA monitoring 2. Personal history of bladder cancer (Z85.51: Personal history of malignant neoplasm of bladder) Uncle has hx of bladder and colon [...] for cytology 02/10/23. Renal washings neg. Cysto 02/03/24 ~diffuse irritation. Retroflexion tumor adjacent to the bladder neck on pt's right side, measuring 2-3 cm. Cytology suspicious for high-grade. FISH positive. S/p TURBT 03/01/24. Path ~high-grade papillary urothelial carcinoma. Focal superficial lamina propria invasion is noted. Muscle present and uninvolved. [2] Completed BCG #6 (half doses) 05/25/24, required coude catheter. S/p Cysto 09/04/24 - No evidence of bladder tumors or stones. -Call if experiencing UTI sxs -Complete BCG #3 in 1 month and surveillance cysto in 3 mos 3. BPH with urinary obstruction (N40.1: Benign prostatic hyperplasia with lower urinary tract symptoms) Taking Alfuzosin 10mg ER qd despite previously mentioning worsening frequency with medication. No voicing any urinary habit complaints at this time. No sample provided for UA today. -Cont Alfuzosin. Call for refills. 4. Prostate nodule (N40.2: Nodular prostate without lower urinary tract symptoms) Present for years. CHANI 02/03/24: ~nodule palpated R base to mid. 35g. [3] -See #1 5. Kidney stone (N20.0: Calculus of k (more content not included)... Normal [facility] Comment on above: Result Comment: Elec tronically Signed By: Jarad VALDIVIA MD\.br\Date and Time Signed: 09/17/24 09:28 EST\.br\Electronically Co-Signed By: Justyna García\.br\Date and Time Co-Signed: 09/17/24 09:27 EST Pathology Request for Lab Co rpon 09-04-2024 Pathology Request for Lab [place] Normal [facility] Comment on above: Order Comment: PATHO LOGY UROLOGY SPECIMEN Result Comment: See report. Scanned copy available in EMR. PERFORMED BY: [facility] [address] [place] [address] PATHOLOGIST COREMAKING MACHINE SETTER BARON PIÑA M.D. Performed By: #### P ATH TO [facility] ####[facility] [id number] [place] [address] [place] Ambulatory Visit Summaryon 0 05-25-2024 Ambulatory Visit Summary Ambulatory Visit Summary VENITA ROSENBERG :1965 Visit Date:05/25/2024 Ambulatory Visit Instructions Your Diagnosis Bladder cancer Your Care Team Attending Physician - ALTAGRACIA MATOS PA-C Primary Care Physician - PARTH GARCÍA MD Procedures Performed TURBT - Transurethral resection of bladder tumor (03/01/2024), Flexible cystoscopy (02/03/2024), Transrectal needle biopsy of prostate (12/22/2022), Cystoscopy (10/22/2022), Cystoscopy (10/23/2021), Cystoscopy (09/10/2020), Cystoscopy (09/25/2019), Cystoscopy (09/05/2018), Transrectal biopsy of prostate using ultrasound (US) guidance (08/19/2015), Cystoscopic removal of ureteric stent (05/30/2012), Cystoscopy and transurethral resection of bladder tumour (05/18/2012), History of cholecystectomy, History of tonsillectomy. What to do next You Need to Schedule the Following Appointments Follow Up with SHEA JARA, RAMON Crisostomo When: Where: [facility] [address] [place] [address] [phone] Medications and Immunizations Administered Given Br[place]hall Nizhoni BCG Live (for intravesical use), 25 mg, IntraVesical. For: Bladder cancer BCG, IntraVesical Allergies No Known Allergies No Known Medication Allergies Problems Ongoing - Any problem that you are currently receiving treatment for. 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 Please share your experience with us by completing your survey. We appreciate your feedback and thank you for choosing us for your care. Education Materials Chemotherapy Chemotherapy is a cancer treatment. It uses medicines to slow down or stop the growth of cancer. You may have chemotherapy to: ? Cure your cancer. ? Prevent the cancer from growing or spreading (metastasizing). ? Ease symptoms and improve your quality of life (palliative care). ? Improve the effects of radiation treatment. ? Shrink a tumor before surgery. ? Rid the body of cancer cells that remain after having a tumor surgically removed. The length of chemotherapy treatment depends on many factors, including: ? The type and stage of your cancer. ? How you respond to the chemotherapy. ? Your side effects. What are the risks? Generally, this is a safe treatment. However, problems may occur, including: ? Infection. ? Bleeding. ? Allergic reactions to medicines. You may have side effects from chemotherapy. What side effects you have depend on a variety of factors, including: ? The type of chemotherapy medicine used. ? Your dosage. ? How long the medicine is used for. ? Your overall health. What happens before treatment? ? You will meet with your cancer care team to discuss: ? Your treatment schedule. ? How your chemotherapy medicine will be given. ? Common side effects and how to prevent or treat them, which may include being given medicines. ? You may have blood tests. What happens during treatment? Chemotherapy may be given continuously over time, or it may be given in cycles. Some common ways chemotherapy may be given include: ? As a pill or capsule. ? As a shot (injection). ? As a skin (topical) cream. ? As a special wafer that is put in your body where the cancer is. The wafer contains chemotherapy medicine. ? As an injection into the cerebrospinal fluid (CSF) in the brain or spinal cord (intraventricular or intrathecal chemotherapy). ? As an installation into the intraperitoneal (abdominal) cavity. ? Through a small, thin tube (catheter). There are different kinds of catheters. You might have one that: ? Goes into a vein (intravenous catheter). An IV may be inserted into a vein each time you get a treatment or it can be used over several days. ? Goes into a vein in your neck that leads to a large vein close to your heart (non-tunneled catheter). This catheter has a risk of infection, so it is used for only a short time. ? Goes into a vein near your elbow (PICC line) and passes through into a large vein in your chest or upper arm. This may be used for weeks or months. ? Connects to an implanted device (port) that is inserted under the skin of your chest (port catheter). The port is attached to a catheter that is passed through into a large vein in your chest or upper arm. The port may stay in place for months or years. ? Goes through the skin of your chest and into a large vein close to your heart (tunneled catheter). This catheter may stay in place for months or years. While you are receiving your chemotherapy medicine, your cancer care team may monitor your bl (more content not included)... Normal [facility] Ambulatory Visit Summary Ambulatory Visit Summary VENITA ROSENBERG :1965 Visit Date:05/25/2024 Ambulatory Visit Instructions Your Diagnosis Bladder cancer Your Care Team Attending Physician - ALTAGRACIA MATOS PA-C Primary Care Physician - PARTH GARCÍA MD Procedures Performed TURBT - Transurethral resection of bladder tumor (03/01/2024), Flexible cystoscopy (02/03/2024), Transrectal needle biopsy of prostate (12/22/2022), Cystoscopy (10/22/2022), Cystoscopy (10/23/2021), Cystoscopy (09/10/2020), Cystoscopy (09/25/2019), Cystoscopy (09/05/2018), Transrectal biopsy of prostate using ultrasound (US) guidance (08/19/2015), Cystoscopic removal of ureteric stent (05/30/2012), Cystoscopy and transurethral resection of bladder tumour (05/18/2012), History of cholecystectomy, History of tonsillectomy. What to do next You Need to Schedule the Following Appointments Follow Up with SHEA JARA, RAMON Crisostomo When: Where: [facility] [address] [place] [phone] Medications and Immunizations Administered Given Jose Daniel BCG Live (for intravesical use), 25 mg, IntraVesical. For: Bladder cancer BCG, IntraVesical Allergies No Known Allergies No Known Medication Allergies Problems Ongoing - Any problem that you are currently receiving treatment for. 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 Please share your experience with us by completing your survey. We appreciate your feedback and thank you for choosing us for your care. Education Materials Chemotherapy Chemotherapy is a cancer treatment. It uses medicines to slow down or stop the growth of cancer. You may have chemotherapy to: ? Cure your cancer. ? Prevent the cancer from growing or spreading (metastasizing). ? Ease symptoms and improve your quality of life (palliative care). ? Improve the effects of radiation treatment. ? Shrink a tumor before surgery. ? Rid the body of cancer cells that remain after having a tumor surgically removed. The length of chemotherapy treatment depends on many factors, including: ? The type and stage of your cancer. ? How you respond to the chemotherapy. ? Your side effects. What are the risks? Generally, this is a safe treatment. However, problems may occur, including: ? Infection. ? Bleeding. ? Allergic reactions to medicines. You may have side effects from chemotherapy. What side effects you have depend on a variety of factors, including: ? The type of chemotherapy medicine used. ? Your dosage. ? How long the medicine is used for. ? Your overall health. What happens before treatment? ? You will meet with your cancer care team to discuss: ? Your treatment schedule. ? How your chemotherapy medicine will be given. ? Common side effects and how to prevent or treat them, which may include being given medicines. ? You may have blood tests. What happens during treatment? Chemotherapy may be given continuously over time, or it may be given in cycles. Some common ways chemotherapy may be given include: ? As a pill or capsule. ? As a shot (injection). ? As a skin (topical) cream. ? As a special wafer that is put in your body where the cancer is. The wafer contains chemotherapy medicine. ? As an injection into the cerebrospinal fluid (CSF) in the brain or spinal cord (intraventricular or intrathecal chemotherapy). ? As an installation into the intraperitoneal (abdominal) cavity. ? Through a small, thin tube (catheter). There are different kinds of catheters. You might have one that: ? Goes into a vein (intravenous catheter). An IV may be inserted into a vein each time you get a treatment or it can be used over several days. ? Goes into a vein in your neck that leads to a large vein close to your heart (non-tunneled catheter). This catheter has a risk of infection, so it is used for only a short time. ? Goes into a vein near your elbow (PICC line) and passes through into a large vein in your chest or upper arm. This may be used for weeks or months. ? Connects to an implanted device (port) that is inserted under the skin of your chest (port catheter). The port is attached to a catheter that is passed through into a large vein in your chest or upper arm. The port may stay in place for months or years. ? Goes through the skin of your chest and into a large vein close to your heart (tunneled catheter). This catheter may stay in place for months or years. While you are receiving your chemotherapy medicine, your cancer care team may monitor your bl (more content not included)... Normal [facility] Urology Office/Clinic Noteon 05-25-2024 Urology Office/Clinic Note Urology Office/Clinic Note Chief Complaint BCG #6/6 HPI Staff BCG #6 of 6 (half dose) for the treatment of bladder cancer previous dx: bladder cancer S/p initial TURBT 05/18/2012, Cysto 10/22/22, cysto, rigid L ureteral dilation, L urs, L pyeloscopy, L renal wash for cytology, R rigid ureteral dilation, R urs, R pyeloscopy, and R renal wash for cytology 02/10/23, Cysto 02/03/24 and TURBT 03/01/24 History of Present Illness staff HPI reviewed and agree. Review of Systems no fever, chills, malaise, myalgia. no rash/lesions. no chest pain, palpitations, or SOB. no abdominal pain, nausea, vomiting. no unilateral calf swelling, redness, pain Physical Exam General: nontoxic, NAD Mouth: moist mucosa Lungs: normal respiratory effort Cardio: regular rate, good distal perfusion Abdomen: nondistended, no suprapubic distention or tenderness, no CVA tenderness Neurologic: Grossly normal Skin: No rashes or suspicious lesions Procedure The patient was placed in the appropriate position and under sterile conditions, the urethra is catheterized with a 14 Fr coude catheter and the bladder is emptied. 50 cc of sterile 0.9 NS with one half vial of JOSE DANIEL BCG was placed into the bladder and the straight catheter was removed. The patient will hold the solution in the bladder for two hours, turning every fifteen minutes 1/4 turn to allow coating of the bladder surface. The patient should call the office or present to the Emergency Department for development of fever, chills, or flu-like symptoms. Symptoms such as urinary frequency, urgency, and other bladder irritation symptoms are expected. Assessment/Plan PRW pt 1. Bladder cancer (C67.9: Malignant neoplasm of bladder, unspecified) Uncle has hx of bladder and colon CA. Dx w/ Barker Syndrome. 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 Detrusor muscle is present and neg for involvement by tumor. Cysto 10/22/22 neg for recurrence. Cytology suspicious for papillary urothelial neoplasm. FISH positive. [...] for cytology 02/10/23. Renal washings neg. Cysto 02/03/24 ~diffuse irritation. Retroflexion tumor adjacent to the bladder neck on pt's right side, measuring 2-3 cm. Cytology suspicious for high-grade. FISH positive. S/p TURBT 03/01/24 - Path ~high-grade papillary urothelial carcinoma. Focal superficial lamina propria invasion is noted. Muscle present and uninvolved. *NEEDS COUDE CATHETER* UA today shows trace leuks. Asx. Pt was given BCG #6 of 6 without complications today. Pt received 1/2 dose BCG today due to national shortage. [facility] 05557 trial showed no difference between 1/3 dose and full-dose BCG in patients with high-risk disease. Pt is aware of the reasoning and is amenable to proceed as discussed. -Schedule surveillance cysto Follow-up With When Contact Information SHEA JARA, Jarad Hendrickson, URL [facility] [address], [place] [phone] Additional Instructions: sched surveillance cysto Patient Education Chemotherapy Documentation recorded by the norma García accurately reflects the services(s) I performed and decisions made by me. Authenticated by Altagracia Matos PA-C on 05/25/2024 11:21:08. I, Justyna García, personally scribed for Altagracia Matos PA-C on 05/25/2024 10:44:28. . 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 Elevated PSA Enlarged prostate with urinary obstruction Kidney stone Microscopic hematuria Personal history of bladder cancer Prostate nodule Renal atrophy Historical No qualifying data Procedure/Surgical History TURBT - Transurethral resection of bladder tumor (03/01/2024), Flexible cystoscopy (02/03/2024), Transrectal needle biopsy of prostate (12/22/2022), Cystoscopy (10/22/2022), Cystoscopy (10/23/2021), Cystoscopy (09/10/2020), Cystoscopy (09/25/2019), Cystoscopy (09/05/2018), Transrectal biopsy of prostate using ultrasound (US) guidance (08/19/2015), Cystoscopic removal of ureteric stent (05/30/2012), Cystoscopy and transurethral resection of bladder tumour (05/18/2012), History of cholecystectomy, History of tonsillectomy. Medications No active medications Allergies No Known Allergies No Known Medication Allergies Social History Tobacco Former smoker, quit more than 30 days ago Tobacco Use:. Never Smokeless Tobacco Use:. Cigarettes, Household tobacco concerns: No. Yes, 05/25/2024 Family History Breast canc (more content not included)... Normal [facility] Comment on above: Result Comment: Elec tronically Signed By: ALTAGRACIA MATOS PA-C\.br\Date and Time Signed: 05/25/24 11:21 EDT\.br\Electronically Co-Signed By: Justyna García\.br\Date and Time Co-Signed: 05/25/24 10:45 EDT Ambulatory Visit Summaryon 0 05-18-2024 Ambulatory Visit Summary Ambulatory Visit Summary VENITA ROSENBERG :1965 Visit Date:05/18/2024 Ambulatory Visit Instructions Your Diagnosis Bladder cancer Your Care Team Attending Physician - ALTAGRACIA MATOS PA-C Primary Care Physician - PARTH GARCÍA MD Procedures Performed TURBT - Transurethral resection of bladder tumor (03/01/2024), Flexible cystoscopy (02/03/2024), Transrectal needle biopsy of prostate (12/22/2022), Cystoscopy (10/22/2022), Cystoscopy (10/23/2021), Cystoscopy (09/10/2020), Cystoscopy (09/25/2019), Cystoscopy (09/05/2018), Transrectal biopsy of prostate using ultrasound (US) guidance (08/19/2015), Cystoscopic removal of ureteric stent (05/30/2012), Cystoscopy and transurethral resection of bladder tumour (05/18/2012), History of cholecystectomy, History of tonsillectomy. Discharge Vitals Height 180 cm Height 71 in Weight 59 kg Weight 129.8 lb BMI 18.21 What to do next Scheduled Follow-Up Appointments Tuesday 10:40 AM EDT With: ALTAGRACIA MATOS PA-C Where: [facility] [address], [address] [place] [address]- You Need to Schedule the Following Appointments Follow Up with BRANDO SEAY, RAMON THOMAS When: Comments: BCG #6 of 6 in 1 week Where: [address] [place] [address] Medications and Immunizations Administered Given Jose Daniel BCG Live (for intravesical use), 25 mg, IntraVesical. For: Bladder cancer BCG, IntraVesical Allergies No Known Allergies No Known Medication Allergies Problems Ongoing - Any problem that you are currently receiving treatment for. 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 Please share your experience with us by completing your survey. We appreciate your feedback and thank you for choosing us for your care. Education Materials Bladder Cancer Bladder cancer is a condition where abnormal tissue (a tumor) grows in the bladder. The bladder is the organ that holds urine. Two tubes (ureters) carry urine from the kidneys to the bladder. The bladder wall is made of layers of tissue. Cancer that spreads through these layers of the bladder wall becomes more difficult to treat. What increases the risk? The following factors may make you more likely to develop this condition: ? Smoking. ? Working where there are risks (occupational exposures), such as working with rubber, leather, clothing fabric, dyes, chemicals, or paint. ? Being 55 years of age or older. ? Being male. ? Having long-term bladder inflammation. ? Having a history of cancer. This includes: ? A family history of bladder cancer. ? Having had bladder cancer before. ? Having had certain treatments for cancer before, such as: ? Medicines to kill cancer cells (chemotherapy). ? Strong X-ray beams or high-energy capsules to kill cancer cells and shrink tumors (radiation therapy). ? Having been exposed to arsenic. This is a poisonous substance. What are the signs or symptoms? Early symptoms of this condition include: ? Blood in your urine. ? Pain when urinating. ? Infections of your urinary system (urinary tract infections or UTIs) that happen often. ? Having to urinate sooner or more often than normal. Late symptoms of this condition include: ? Not being able to urinate. ? Pain on one side of your lower back. ? Loss of appetite. ? Weight loss. ? Tiredness (fatigue). ? Swelling in your feet. ? Bone pain. How is this diagnosed? This condition is diagnosed based on: ? Your medical history. ? A physical exam. ? Lab tests, such as urine tests. ? Imaging tests. ? Your symptoms. You may also have other tests or procedures, such as: ? A cystoscopy. This involves putting a narrow tube into your urethra. The urethra is the organ that carries urine from your bladder to the outside of your body. This procedure is done to view the lining of your bladder for tumors. ? A biopsy. This involves removing a tissue sample to look at under a microscope to check for cancer. Blood tests or imaging tests may be needed. These show how far into the bladder wall cancer has grown, and if cancer has spread to any other parts of your body. Tests may include: ? CT scan. ? MRI. ? Bone scan. ? X-ray. How is this treated? Your health care provider may recommend one or more types of treatment based on the stage of your cancer. The most common treatments are: ? Surgery to remove the cancer. Types of surgeries includ (more content not included)... Normal [facility] Urology Office/Clinic Noteon 05-18-2024 Urology Office/Clinic Note Urology Office/Clinic Note Chief Complaint BCG #5 HPI Staff BCG #5 of 6 (half dose) for the treatment of bladder cancer patient denies any issues urinating since last treatment History of Present Illness Tests reviewed: reviewed UA I have reviewed the previous health record information and history for this patient from CHARLES Christopher. I have reviewed and verified the staff HPI to be accurate for this encounter. Review of Systems PHQ Score Initial Depression Screen Score: 0 SCORE No fever, chills, malaise, myalgia. No rash/lesions. No chest pain, palpitations, or SOB. No abdominal pain, nausea, vomiting. No unilateral calf swelling, redness, pain Physical Exam Vitals & Measurements HT: 71 in HT: 180 cm WT: 59 kg WT: 129.8 lb BMI: 18.21 General: nontoxic, NAD Mouth: moist mucosa Lungs: normal respiratory effort Cardio: regular rate, good distal perfusion Abdomen: nondistended, no suprapubic distention or tenderness, no CVA tenderness Neurologic: Grossly normal Skin: No rashes or suspicious lesions Procedure The patient was placed in the appropriate position and under sterile conditions, the urethra is catheterized with a 14 Fr straight catheter and the bladder is emptied. 50 cc of sterile 0.9 NS with one vial of JOSE DANIEL BCG was placed into the bladder and the straight catheter was removed. The patient will hold the solution in the bladder for two hours, turning every fifteen minutes 1/4 turn to allow coating of the bladder surface. The patient should call the office or present to the Emergency Department for development of fever, chills, or flu-like symptoms. Symptoms such as urinary frequency, urgency, and other bladder irritation symptoms are expected. Assessment/Plan 1. Bladder cancer (C67.9: Malignant neoplasm [...] for cytology 02/10/23. Renal washings neg. Cysto 02/03/24 ~diffuse irritation. Retroflexion tumor adjacent to the bladder neck on pt's right side, measuring 2-3 cm. Cytology suspicious for high-grade. FISH positive. S/p TURBT 03/01/24. Path ~high-grade papillary urothelial carcinoma. Focal superficial lamina propria invasion is noted. Muscle present and uninvolved. [1] UA today negative for blood and infection. *NEEDS COUDE CATHETER* Pt received BCG #5 of 6 IO today wo complications. Pt received 1/2 dose BCG today due to national shortage. EORTC 06547 trial showed no difference between 1/3 dose and full-dose BCG in patients with high-risk disease. Pt is aware of the reasoning and is amenable to proceed as discussed. -BCG #6 of 6 in 1 week Follow-up With When Contact Information ALTAGRACIA MATOS PA-C, URL [address] [place] [address] Additional Instructions: BCG #6 of 6 in 1 week Patient Education Bladder Cancer Documentation recorded by the scribpierce Wade accurately reflects the services(s) I performed and decisions made by me. Authenticated by Altagracia Matos PA-C on 05/18/2024 12:52:53. I, Roberto Wade, personally scribed for Altagracia Matos PA-C on 05/18/2024 11:09:23. . 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 Elevated PSA Enlarged prostate with urinary obstruction Kidney stone Microscopic hematuria Personal history of bladder cancer Prostate nodule Renal atrophy Historical No qualifying data Procedure/Surgical History TURBT - Transurethral resection of bladder tumor (03/01/2024), Flexible cystoscopy (02/03/2024), Transrectal needle biopsy of prostate (12/22/2022), Cystoscopy (10/22/2022), Cystoscopy (10/23/2021), Cystoscopy (09/10/2020), Cystoscopy (09/25/2019), Cystoscopy (09/05/2018), Transrectal biopsy of prostate using ultrasound (US) guidance (08/19/2015), Cystoscopic removal of ureteric stent (05/30/2012), Cystoscopy and transurethral resection of bladder tumour (05/18/2012), History of cholecystectomy, History of tonsillectomy. Medications No active medications Allergies No Known Allergies No Known Medication Allergies Social History Tobacco Former smoker, quit more than 30 days ago Tobacco (more content not included)... Normal [facility] Comment on above: Result Comment: Elec tronically Signed By: ALTAGRACIA MATOS PA-C\.br\Date and Time Signed: 05/18/24 12:52 EDT\.br\Electronically Co-Signed By: Roberto Wade.yusuf\Date and Time Co-Signed: 05/18/24 11:09 EDT Urology Office/Clinic Noteon 05-17-2024 Urology Office/Clinic Note Urology Office/Clinic Note Chief Complaint BCG 4 of 6 HPI Staff BCG 4 out of 6 half dose. pt states he is having no issues today. pt states after last dose of BCG he has discomfort for a few days. History of Present Illness Tests reviewed: reviewed UA I have reviewed the previous health record information and history for this patient from CHARLES Christopher. I have reviewed and verified the staff HPI to be accurate for this encounter. Review of Systems PHQ Score Initial Depression Screen Score: 0 SCORE no fever, chills, malaise, myalgia. no rash/lesions. no chest pain, palpitations, or SOB. no abdominal pain, nausea, vomiting. no unilateral calf swelling, redness, pain Physical Exam Vitals & Measurements HR: 74(Peripheral) BP: 128/84 HT: 71 in HT: 180 cm WT: 59 kg WT: 129.8 lb BMI: 18.21 General: nontoxic, NAD Mouth: moist mucosa Lungs: normal respiratory effort Cardio: regular rate, good distal perfusion Abdomen: nondistended, no suprapubic distention or tenderness, no CVA tenderness Neurologic: Grossly normal Skin: No rashes or suspicious lesions Procedure The patient was placed in the appropriate position and under sterile conditions, the urethra is catheterized with a 14 Fr straight catheter and the bladder is emptied. 50 cc of sterile 0.9 NS with one half vial of JOSE DANIEL BCG was placed into the bladder and the straight catheter was removed. The patient will hold the solution in the bladder for two hours, turning every fifteen minutes 1/4 turn to allow coating of the bladder surface. The patient should call the office or present to the Emergency Department for development of fever, chills, or flu-like symptoms. Symptoms such as urinary frequency, urgency, and other bladder irritation symptoms are expected. Assessment/Plan 1. Bladder cancer (C67.9: Malignant neoplasm [...] for cytology 02/10/23. Renal washings neg. Cysto 02/03/24 ~diffuse irritation. Retroflexion tumor adjacent to the bladder neck on pt's right side, measuring 2-3 cm. Cytology suspicious for high-grade. FISH positive. S/p TURBT 03/01/24. Path ~high-grade papillary urothelial carcinoma. Focal superficial lamina propria invasion is noted. Muscle present and uninvolved. [1] UA today negative for blood and infection. *NEEDS COUDE CATHETER* Pt received BCG #4 of 6 today. Pt received 1/2 dose BCG today due to national shortage. EORTC 53393 trial showed no difference between 1/3 dose and full-dose BCG in patients with high-risk disease. Pt is aware of the reasoning and is amenable to proceed as discussed. -BCG #5 of 6 in 1 week Follow-up With When Contact Information BRANDO SEAY, ALTAGRACIA Pelayo, URL [address] [place] [address] Additional Instructions: BCG #5 of 6 in 1 week Patient Education Bladder Cancer Documentation recorded by the norma Wade accurately reflects the services(s) I performed and decisions made by me. Authenticated by Altagracia Matos PA-C on 05/17/2024 12:37:16. IRoberto, personally scribed for Altagracia Matos PA-C on 05/11/2024 11:17:50. . 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 Elevated PSA Enlarged prostate with urinary obstruction Kidney stone Microscopic hematuria Personal history of bladder cancer Prostate nodule Renal atrophy Historical No qualifying data Procedure/Surgical History TURBT - Transurethral resection of bladder tumor (03/01/2024), Flexible cystoscopy (02/03/2024), Transrectal needle biopsy of prostate (12/22/2022), Cystoscopy (10/22/2022), Cystoscopy (10/23/2021), Cystoscopy (09/10/2020), Cystoscopy (09/25/2019), Cystoscopy (09/05/2018), Transrectal biopsy of prostate using ultrasound (US) guidance (08/19/2015), Cystoscopic removal of ureteric stent (05/30/2012), Cystoscopy and transurethral resection of bladder tumour (05/18/2012), History of cholecystectomy, History of tonsillectomy. Medications No active medications Allergies No Known Allergies No Known Medication Allergies Social History Tobacco Former smoker (more content not included)... Normal [facility] Comment on above: Result Comment: Elec tronically Signed By: ALTAGRACIA MATOS PA-C\.br\Date and Time Signed: 05/17/24 12:37 EDT\.br\Electronically Co-Signed By: Roberto Wade\.br\Date and Time Co-Signed: 05/11/24 11:18 EDT Ambulatory Visit Summaryon 0 05-11-2024 Ambulatory Visit Summary Ambulatory Visit Summary VENITA ROSENBERG :1965 Visit Date:05/11/2024 Ambulatory Visit Instructions Your Diagnosis Bladder cancer Your Care Team Attending Physician - ALTAGRACIA MATOS PA-C Primary Care Physician - PARTH GARCÍA MD Procedures Performed TURBT - Transurethral resection of bladder tumor (03/01/2024), Flexible cystoscopy (02/03/2024), Transrectal needle biopsy of prostate (12/22/2022), Cystoscopy (10/22/2022), Cystoscopy (10/23/2021), Cystoscopy (09/10/2020), Cystoscopy (09/25/2019), Cystoscopy (09/05/2018), Transrectal biopsy of prostate using ultrasound (US) guidance (08/19/2015), Cystoscopic removal of ureteric stent (05/30/2012), Cystoscopy and transurethral resection of bladder tumour (05/18/2012), History of cholecystectomy, History of tonsillectomy. Discharge Vitals Heart Rate (Peripheral) 74 Blood Pressure 128/84 Height 180 cm Height 71 in Weight 59 kg Weight 129.8 lb BMI 18.21 What to do next Scheduled Follow-Up Appointments Tuesday 10:40 AM EDT With: ALTAGRACIA MATOS PA-C Where: [facility] [address], [address] [place] [address]- Tuesday 10:40 AM EDT With: ALTAGRACIA MATOS PA-C Where: [facility] [address] [place] [address]- You Need to Schedule the Following Appointments Follow Up with ALTAGRACIA MATOS PA-C, RAMON When: Comments: BCG #5 of 6 in 1 week Where: [address] [place] [address] Medications and Immunizations Administered Given Jose Daniel BCG Live (for intravesical use), 25 mg, IntraVesical. For: Bladder cancer BCG, IntraVesical Allergies No Known Allergies No Known Medication Allergies Problems Ongoing - Any problem that you are currently receiving treatment for. 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 Please share your experience with us by completing your survey. We appreciate your feedback and thank you for choosing us for your care. Education Materials Bladder Cancer Bladder cancer is a condition where abnormal tissue (a tumor) grows in the bladder. The bladder is the organ that holds urine. Two tubes (ureters) carry urine from the kidneys to the bladder. The bladder wall is made of layers of tissue. Cancer that spreads through these layers of the bladder wall becomes more difficult to treat. What increases the risk? The following factors may make you more likely to develop this condition: ? Smoking. ? Working where there are risks (occupational exposures), such as working with rubber, leather, clothing fabric, dyes, chemicals, or paint. ? Being 55 years of age or older. ? Being male. ? Having long-term bladder inflammation. ? Having a history of cancer. This includes: ? A family history of bladder cancer. ? Having had bladder cancer before. ? Having had certain treatments for cancer before, such as: ? Medicines to kill cancer cells (chemotherapy). ? Strong X-ray beams or high-energy capsules to kill cancer cells and shrink tumors (radiation therapy). ? Having been exposed to arsenic. This is a poisonous substance. What are the signs or symptoms? Early symptoms of this condition include: ? Blood in your urine. ? Pain when urinating. ? Infections of your urinary system (urinary tract infections or UTIs) that happen often. ? Having to urinate sooner or more often than normal. Late symptoms of this condition include: ? Not being able to urinate. ? Pain on one side of your lower back. ? Loss of appetite. ? Weight loss. ? Tiredness (fatigue). ? Swelling in your feet. ? Bone pain. How is this diagnosed? This condition is diagnosed based on: ? Your medical history. ? A physical exam. ? Lab tests, such as urine tests. ? Imaging tests. ? Your symptoms. You may also have other tests or procedures, such as: ? A cystoscopy. This involves putting a narrow tube into your urethra. The urethra is the organ that carries urine from your bladder to the outside of your body. This procedure is done to view the lining of your bladder for tumors. ? A biopsy. This involves removing a tissue sample to look at under a microscope to check for cancer. Blood tests or imaging tests may be needed. These show how far into the bladder wall cancer has grown, and if cancer has spread to any other parts of your body. Tests may include: ? CT scan. ? MRI. (more content not included)... Normal [facility] Urology Office/Clinic Noteon 05-04-2024 Urology Office/Clinic Note Urology Office/Clinic Note Chief Complaint BCG #3 of 6 HPI Staff 58 yo male here for BCG #3 of 6 (half dose) Previous dx: bladder CA, elevated PSA, prostate nodule, BPH w/ LUTS, renal atrophy, duplicated renal collecting system. History of Present Illness staff HPI reviewed and agree. Review of Systems PHQ Score Initial Depression Screen Score: 0 SCORE no fever, chills, malaise, myalgia. no rash/lesions. no chest pain, palpitations, or SOB. no abdominal pain, nausea, vomiting. no unilateral calf swelling, redness, pain Physical Exam Vitals & Measurements HT: 71 in HT: 180 cm WT: 59 kg WT: 129.8 lb BMI: 18.21 General: nontoxic, NAD Mouth: moist mucosa Lungs: normal respiratory effort Cardio: regular rate, good distal perfusion Abdomen: nondistended, no suprapubic distention or tenderness, no CVA tenderness Neurologic: Grossly normal Skin: No rashes or suspicious lesions Procedure The patient was placed in the appropriate position and under sterile conditions, the urethra is catheterized with a 16fr coude catheter and the bladder is emptied. 30 cc of sterile 0.9 NS with one half vial of JOSE DANIEL BCG was placed into the bladder and the straight catheter was removed. The patient will hold the solution in the bladder for two hours, turning every fifteen minutes 1/4 turn to allow coating of the bladder surface. The patient should call the office or present to the Emergency Department for development of fever, chills, or flu-like symptoms. Symptoms such as urinary frequency, urgency, and other bladder irritation symptoms are expected. Assessment/Plan PRW pt 1. Bladder cancer (C67.9: Malignant neoplasm of [...] for cytology 02/10/23. Renal washings neg. Cysto 02/03/24 ~diffuse irritation. Retroflexion tumor adjacent to the bladder neck on pt's right side, measuring 2-3 cm. Cytology suspicious for high-grade. FISH positive. S/p TURBT 03/01/24. Path ~high-grade papillary urothelial carcinoma. Focal superficial lamina propria invasion is noted. Muscle present and uninvolved. [1] UA today negative for blood and infection. Pt had BCG #3 of 6 today. Unable to get red rubber straight cath in. Switched to coude (16fr was the smallest we had) and it went in easily. Pt received 1/2 dose BCG today due to national shortage. EORTC 74175 trial showed no difference between 1/3 dose and full-dose BCG in patients with high-risk disease. Pt is aware of the reasoning and is amenable to proceed as discussed. -BCG #4/6 in 1 wk Follow-up With When Contact Information BRANDO SEAY, ALTAGRACIA Pelayo, URL [address] [place] [address] [phone] Additional Instructions: BCG #4/6 (half dose) on 05/11/24 Patient Education Chemotherapy Documentation recorded by the scrtommy García accurately reflects the services(s) I performed and decisions made by me. Authenticated by Altagracia Matos PA-C on 05/04/2024 11:01:42. I, Justyna García, personally scribed for Altagracia Matos PA-C on 05/04/2024 10:57:28. . 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 Elevated PSA Enlarged prostate with urinary obstruction Kidney stone Microscopic hematuria Personal history of bladder cancer Prostate nodule Renal atrophy Historical No qualifying data Procedure/Surgical History TURBT - Transurethral resection of bladder tumor (03/01/2024), Flexible cystoscopy (02/03/2024), Transrectal needle biopsy of prostate (12/22/2022), Cystoscopy (10/22/2022), Cystoscopy (10/23/2021), Cystoscopy (09/10/2020), Cystoscopy (09/25/2019), Cystoscopy (09/05/2018), Transrectal biopsy of prostate using ultrasound (US) guidance (08/19/2015), Cystoscopic removal of ureteric stent (05/30/2012), Cystoscopy and transurethral resection of bladder tumour (05/18/2012). Medications No active medications Allergies No Known Allergies No Known Medication Allergies Social History Tobacco Former smoker, quit more than 30 days ago Tobacco Use:. Never Smokeless Tobacco Use:. Cigarettes, Household tobacco concerns: No. Yes, 05/04/2024 Family History Breast can (more content not included)... Normal [facility] Comment on above: Result Comment: Elec tronically Signed By: ALTAGRACIA MATOS PA-C\.br\Date and Time Signed: 05/04/24 11:01 EDT\.br\Electronically Co-Signed By: Justyna García\.br\Date and Time Co-Signed: 05/04/24 10:58 EDT Ambulatory Visit Summaryon 0 04-27-2024 Ambulatory Visit Summary Ambulatory Visit Summary VENITA ROSENBERG :1965 Visit Date:04/27/2024 Ambulatory Visit Instructions Your Diagnosis Bladder cancer Your Care Team Attending Physician - STEPHY Vidal APRN, [place] [facility] Primary Care Physician - PARTH GARCÍA MD Procedures Performed TURBT - Transurethral resection of bladder tumor (03/01/2024), Flexible cystoscopy (02/03/2024), Transrectal needle biopsy of prostate (12/22/2022), Cystoscopy (10/22/2022), Cystoscopy (10/23/2021), Cystoscopy (09/10/2020), Cystoscopy (09/25/2019), Cystoscopy (09/05/2018), Transrectal biopsy of prostate using ultrasound (US) guidance (08/19/2015), Cystoscopic removal of ureteric stent (05/30/2012), Cystoscopy and transurethral resection of bladder tumour (05/18/2012). Discharge Vitals Heart Rate (Peripheral) 78 Blood Pressure 116/72 Height 180 cm Height 71 in Weight 59 kg Weight 129.8 lb BMI 18.21 What to do next Scheduled Follow-Up Appointments Tuesday 10:40 AM EDT With: ALTAGRACIA MATOS PA-C Where: [facility] [address] [place] [address]- Tuesday 10:40 AM EDT With: ALATGRACIA MATOS PA-C Where: [facility] [address] [place] [address]- Tuesday 10:40 AM EDT With: ALTAGRACIA MATOS PA-C Where: [facility] [address] [place] [address]- Tuesday 10:40 AM EDT With: ALTAGRACIA MATOS PA-C Where: [facility] [address], [address] [place] [id number]- Medications and Immunizations Administered Given [place] Nizhoni BCG Live (for intravesical use), 25 mg, IntraVesical. For: Bladder cancer BCG, IntraVesical Allergies No Known Allergies No Known Medication Allergies Problems Ongoing - Any problem that you are currently receiving treatment for. 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 Please share your experience with us by completing your survey. We appreciate your feedback and thank you for choosing us for your care. Normal [facility] Urology Office/Clinic Noteon 04-27-2024 Urology Office/Clinic Note Urology Office/Clinic Note Chief Complaint bcg #2 HPI Staff 58 yo male here for BCG #[address] Valdivia pt. Previous dx: bladder CA, elevated PSA, prostate nodule, BPH w/ LUTS, renal atrophy, duplicated renal collecting system. Dysuria: no Incomplete bladder emptying: no Hematuria: no Frequency: no Urgency: no Nocturia: no Stream: no Leaking: no Post void dripping: no Wearing pads/ Depends: no Urge incontinence: no Stress incontinence: no Incontinence without Sensory Awareness: no Abdominal pain: no Flank pain: no Sexual complaints: no History of Present Illness I have reviewed and verified the staff HPI to be accurate for this encounter. Portions of this record may have been created with voice recognition artificial intelligence software, specifically [employer], [employer] and or [employer]. Substitutions may have occurred due to the inherent limitations of voice recognition and artificial intelligence software. Review of Systems PHQ Score Initial Depression Screen Score: 0 SCORE Physical Exam Vitals & Measurements HR: 78(Peripheral) BP: 116/72 HT: 71 in HT: 180 cm WT: 59 kg WT: 129.8 lb BMI: 18.21 General: Well developed, well nourished, in no acute distress. Assessment/Plan PRW pt 1. Bladder cancer (C67.9: Malignant neoplasm of [...] for cytology 02/10/23. Renal washings neg. Cysto 02/03/24 ~diffuse irritation. Retroflexion tumor adjacent to the bladder neck on pt's right side, measuring 2-3 cm. Cytology suspicious for high-grade. FISH positive. S/p TURBT 03/01/24. Path ~high-grade papillary urothelial carcinoma. Focal superficial lamina propria invasion is noted. Muscle present and uninvolved. [1] UA today with trace intact blood, no signs of infection. Patient denies any symptoms of UTI. Tolerated last BCG treatment well, only experience frequency, urgency for about 24 hours after treatment. The patient was placed in the appropriate position and under sterile conditions, the urethra is catheterized with a 14 Fr straight catheter and the bladder is emptied. 30 cc of sterile 0.9 NS with one half vial of JOSE DANIEL BCG was placed into the bladder and the straight catheter was removed. The patient will hold the solution in the bladder for two hours, turning every fifteen minutes 1/4 turn to allow coating of the bladder surface. The patient should call the office or present to the Emergency Department for development of fever, chills, or flu-like symptoms. Symptoms such as urinary frequency, urgency, and other bladder irritation symptoms are expected. Pt received 1/2 dose BCG today due to national shortage. EORTC 46746 trial showed no difference between 1/3 dose and full-dose BCG in patients with high-risk disease. Pt is aware of the reasoning and is amenable to proceed as discussed. Received BCG #2/6 today without complications. -BCG #3/6 scheduled 05/04/24 Ordered: Urnls Dip Stick Auto w/o Microscopy POC [id number] Follow-up No qualifying data available 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 Elevated PSA Enlarged prostate with urinary obstruction Kidney stone Microscopic hematuria Personal history of bladder cancer Prostate nodule Renal atrophy Historical No qualifying data Procedure/Surgical History TURBT - Transurethral resection of bladder tumor (03/01/2024), Flexible cystoscopy (02/03/2024), Transrectal needle biopsy of prostate (12/22/2022), Cystoscopy (10/22/2022), Cystoscopy (10/23/2021), Cystoscopy (09/10/2020), Cystoscopy (09/25/2019), Cystoscopy (09/05/2018), Transrectal biopsy of prostate using ultrasound (US) guidance (08/19/2015), Cystoscopic removal of ureteric stent (05/30/2012), Cystoscopy and transurethral resection of bladder tumour (05/18/2012). Medications No active medications Allergies No Known Allergies No Known Medication Allergies Social History Tobacco Former smoker, quit more than 30 days ago Tobacco Use:. Never Smokeless Tobacco Use:. Cigarettes, Household tobacco concerns: No. Yes, 04/27/2024 Family History Breast cancer: Mother and Sister. Cancer: Mother and (more content not included)... Normal [facility] Comment on above: Result Comment: Elec tronically Signed By: Orzech DOCUMENT REVIEW ATTORNEY, GRADE SCHOOL TEACHER-C, Daphne X\.yusuf\Date and Time Signed: 04/27/24 11:14 EDT Urology Office/Clinic Noteon 04-13-2024 Urology Office/Clinic Note Urology Office/Clinic Note Chief Complaint BCG #1/6 (half dose) HPI Staff 58 year old male here for BCG #1 of 6 (HALF DOSE) for the treatment of bladder cancer S/P TURBT 03/01/24 Prostate MRI done 04/06/24 History of Present Illness staff HPI reviewed and agree. Review of Systems no fever, chills, malaise, myalgia. no rash/lesions. no chest pain, palpitations, or SOB. no abdominal pain, nausea, vomiting. no unilateral calf swelling, redness, pain Physical Exam General: nontoxic, NAD Mouth: moist mucosa Lungs: normal respiratory effort Cardio: regular rate, good distal perfusion Abdomen: nondistended, no suprapubic distention or tenderness, no CVA tenderness Neurologic: Grossly normal Skin: No rashes or suspicious lesions Procedure The patient was placed in the appropriate position and under sterile conditions, the urethra is catheterized with a 14 Fr straight catheter and the bladder is emptied. 30 cc of sterile 0.9 NS with one half vial of JOSE DANIEL BCG was placed into the bladder and the straight catheter was removed. The patient will hold the solution in the bladder for two hours, turning every fifteen minutes 1/4 turn to allow coating of the bladder surface. The patient should call the office or present to the Emergency Department for development of fever, chills, or flu-like symptoms. Symptoms such as urinary frequency, urgency, and other bladder irritation symptoms are expected. Assessment/Plan Dr. Valdivia pt 1. Bladder cancer (C67.9: Malignant neoplasm of [...] for cytology 02/10/23. Renal washings neg. Cysto 02/03/24 diffuse irritation. Retroflexion tumor adjacent to the bladder neck on pt's right side, measuring 2-3 cm. Cytology suspicious for high-grade. FISH positive. S/p TURBT 03/01/24. Path high-grade papillary urothelial carcinoma. Focal superficial lamina propria invasion is noted. Muscle present and uninvolved. [1] UA today negative for blood and infection. Pt had BCG #1 of 6 wo complications today. Pt received 1/2 dose BCG today due to national shortage. EORTC 36942 trial showed no difference between 1/3 dose and full-dose BCG in patients with high-risk disease. Pt is aware of the reasoning and is amenable to proceed as discussed. -BCG #2/6 in 2 wks 2. Elevated PSA (R97.20: Elevated prostate specific antigen [PSA]) PSA: 10/16/21 - 1.86 10/15/22 - 1.73 01/27/24 - 2.13 TRUS/bx 2014. MRI of prostate 12/03/22 PI-RADS 4 and PI-RADS 5 lesions. TRUS/bx 12/22/22 neg. [2] Prostate MRI 04/06/24 [facility] [place] Prostate volume 31 mL. Focal area of T2 hypointensity involving posterior aspect of R peripheral zone at level of mid gland measuring 13 x 11 mm wiht restricted diffusion and low ADC value. No evidence of extra prostatic extension. Additional area of T2 hypointensity involving posterior aspect of L peripheral zone at level of base extending into midline measuring 10 x 5 mm with restricted diffusion and low ADC value. No gross extracapsular extension. No evidence of lymphadenopathy. No significant change in findings from prior study 12/03/22. Pt was called with MRI results and is being scheduled for fusion bx after completion of BCG #6. 3. Prostate nodule (N40.2: Nodular prostate without lower urinary tract symptoms) Present for years. CHANI 02/03/24: nodule palpated R base to mid. 35g. See #2. 4. BPH with urinary obstruction (N40.1: Benign prostatic hyperplasia with lower urinary tract symptoms) D/c'd Alfuzosin 10mg ER qd at prior OV due to worsened frequency and canker sores in his mouth. 5. Kidney stone (N20.0: Calculus of kidney) CT AP wo IV con 12/24/22 [facility] - Nonobstructive mid pole right renal calculus. No recent imaging. [3] 6. Renal atrophy (N26.1: Atrophy of kidney (terminal)) CT 12/24/22 shows mild right renal atrophy/scarring and duplicated right ureter. Pt states his right kidney did not grow with him as a child. Had possible reflux of kidney and or kidney infections which causes scarring. Nothing concerning for cancer. [4] 7. Duplicated renal collecting system (Q62.5: Duplication of ureter) CT AP wo IV con 12/24/22 [facility] - shows there is duplication of the right renal collecting system again noted. There is suboptimal opacification of the ureters and urina (more content not included)... Normal [facility] Comment on above: Result Comment: Elec tronically Signed By: ALTAGRACIA MATOS PA-C\.br\Date and Time Signed: 04/13/24 11:38 EDT\.br\Electronically Co-Signed By: Justyna García\.br\Date and Time Co-Signed: 04/13/24 11:25 EDT MR prostate wo/w conon 04-06 MR prostate wo/w con [facility] [place] [address] MRI Report Signed Patient: Venita Rosenberg MR#: [id number] : 1965 Acct:[id number] Age/Sex: 58 / M ADM Date: 04/06/24 Loc: MR Room: Type: [facility] Attending Dr: Jarad Valdivia MD Copies to: Jarad Valdivia MD Ordering Provider: Jarad Valdivia MD Date of Service: 04/06/24 MR/MR prostate wo/w con: R97.20,N40.2 EXAMINATION: MR prostate wo/w con HISTORY: Elevated PSA. COMPARISON: Prostate MRI 12/03/2022 TECHNIQUE: Multiparametric imaging of the prostate gland was performed with IV contrast. FINDINGS: Prostate Dimensions: 4.3 x 3.0 x 4.4 cm. Prostate Volume: 30 mL. Peripheral Zone: Heterogenous inT2 signal suggestive of prior prostatitis. Focal area of T2 hypointensity is seen involving the posterior aspect of the right peripheral zone at the level of the mid gland measuring 13 x 11 mm with restricted diffusion and low ADC value. No evidence of extra prostatic extension. Please see series 4 image 18, series 650 image 16 and series 600 image 16. Additional area of T2 hypointensity is identified involving the posterior aspect of the left peripheral zone at the level of the base extending into the midline measuring 10 x 5 mm with restricted diffusion and low ADC value. No gross extracapsular extension is seen. Please see series 4 image 21, series 650 image 19 and series 600 image 19. Central/Transitional Zone: BPH changes. Seminal Vesicles: Unremarkable Neurovascular bundles: Unremarkable. Lymphadenopathy: No evidence of lymphadenopathy. Bladder: No focal lesion. Bowel: The visualized bowel is without acute abnormality. Peritoneal Cavity: No free fluid. Right-sided inguinal hernia. Bones: No suspicious bony lesion. MR/MR prostate wo/w con IMPRESSION: No significant change in prostate findings compared to the prior study. Impression dictated by: Leonardo Mitchell Jr., D.O.04/06/2024 1:52 PM Dictation Location: [place] [address] Transcribed By: [facility] 04/06/24 1352 Dictated By: Leonardo Mitchell Jr, DO 04/06/24 1339 Signed By: 04/06/24 1352 Normal [facility] 03-01-2024 L Specimen: [id number] Received: 03/02/24 Status: AUGUSTA Hicks Num: [id number] Spec Type: Surgical Subm Dr: Jarad Valdivia MD Tissues: A Urinary Bladder - TUR (BLADDER TUMOR) Procedures: HE/3, Gross/Micro L5 Age/ Patient Sex Location Account Attending Physician Venita Rosenberg 58/M LABELL [id number] Jarad Valdivia MD SPEC NUM: [id number] RECD: 03/02/24 STATUS: AUGUSTA HICKS NUM: [id number] YUKO: 03/01/24-[address]: Jarad Valdivia MD ENTERED: 03/02/24-[address]: Curtis Navarro SPEC TYPE: Surgical DEPT: DON TANG ORDERED: HE/3, Gross/Micro L5 ORDERED: HE, Gross/Micro L5 Pathological Diagnosis Tumor, urinary bladder, transurethral resection: High-grade papillary urothelial carcinoma. Focal superficial lamina propria invasion is noted. Muscularis propria is noted, negative for invasion. Clinical Information Bladder tumor/lesions, history of bladder cancer. Gross Description Received in formalin labeled with the patient's name, date of and bladder tumors are 4 fragments of esqueda-brown rubbery tissue measuring in aggregate 1.9 x 0.4 x 0.3 cm, entirely submitted in A1. CPT Codes 45104 Specimen: [id number] Received: 03/02/24 Status: AUGUSTA Hicks Num: [id number] Spec Type: Surgical Subm Dr: Jarad Valdivia MD Tissues: A Urinary Bladder - TUR (BLADDER TUMOR) Procedures: HE/3, Gross/Micro L5 Patient: Venita Rosenberg Robson [id number] (Continued) Signed (signature on file) Baron Piña MD 03/05/24 1815 Normal [facility] CBC W MANUAL DIFFon 02-12-20 ATYPICAL LYMPH # Normal [facility] Comment on above: Performed By: #### Anat HOOK ####[facility] [address] [place], [place] [address]Dr. Yordan Holt ATYPICAL LYMPH % Normal [facility] Comment on above: Performed By: #### Anat HOOK ####[facility] [address] [place], [place] [address]Dr. Yordan Holt BAND # Normal 0.0-0.[address] [facility] Comment on above: Performed By: #### Anat HOOK ####[facility] [address] [place], [place] [address]Dr. Yilan Holt BAND % Normal 0-5 [facility] Comment on above: Performed By: #### Anta HOOK ####[facility] [address] [place] [address]Dr. Yordan Holt BASOM # 0.00 103/ul Normal 0.00-0.10 [facility] Comment on above: Performed By: #### Anat HOOK ####[facility] [address] [place] [address]Dr. Yilan Holt BASOM % 0.0 % Critically low 0.2-2.[address] [facility] Comment on above: Performed By: #### Anat HOOK ####[facility] Hz[address] [place], [place] [address]Dr. Yilan Holt BLAST # Normal [facility] Comment on above: Performed By: #### C MONSTER ####[facility] [address] [place] [id number]. Yordan Holt BLAST % Normal [facility] Comment on above: Performed By: #### C MONSTER ####[facility] [address] [place] [address]Dr. Yordan Holt CORRECTED WBC Normal 4.0-11.0 [facility] Comment on above: Performed By: #### C MONSTER ####[facility] [address] [place], [place] [address]Dr. Yordan Holt EOS # 0.00 103/ul Normal 0.00-0.70 [facility] Comment on above: Performed By: #### C MONSTER ####[facility] Gcketwwk[address] [place], [place] [address]Dr. Yordan Holt EOS% 0.0 % Critically low 0.9-7.[address] [facility] Comment on above: Performed By: #### C MONSTER ####[facility] L[address]efjov[address] [place], [place] [address]Dr. Yordan Holt HCT 46.7 % Normal 42.0-54.0 [facility] Comment on above: Performed By: #### C MONSTER ####[facility] [address] [place], [place] [address]Dr. Yordan Holt HGB 16.3 g/dl Normal 14.0-18.0 [facility] Comment on above: Performed By: #### C MONSTER ####[facility] [address]fc[address] [place], [place] [address]Dr. Yordan Holt LYMPHM # 0.53 103/ul Critically low 1.20-3.80 [facility] Comment on above: Performed By: #### C MONSTER ####[facility] [address] [place], [place] [address]Dr. Yordan Holt LYMPHM% 4.0 % Critically low 20.5-60.0 [facility] Comment on above: Performed By: #### C MONSTER ####[facility] [address] [place], [place] [address]Dr. Yordan Holt MCH 30.9 pg Normal 25.9-34.0 [facility] Comment on above: Performed By: #### C MONSTER ####[facility] [address] [place] [id number]. Yordan Holt MCHC 34.9 g/dl Normal 29.9-35.2 [facility] Comment on above: Performed By: #### C MONSTER ####[facility] [address]zn[address] [place] [id number]. Yordan Holt MCV 88.6 fL Normal 80.0-94.0 [facility] Comment on above: Performed By: #### C BCSARINA ####[facility] [address]ic[address] [place] [id number]. Yordan Holt METAMYELOCYTE # Normal [facility] Comment on above: Performed By: #### C MONSTER ####[facility] [address] [place], [place] [address]Dr. Yordan Holt METAMYELOCYTE % Normal [facility] Comment on above: Performed By: #### C MONSTER ####[facility] [address] [place] [id number]. Yordan Holt MONOM# 0.53 103/ul Normal 0.30-0.[address] [facility] Comment on above: Performed By: #### C MONSTER ####[facility] [address] [place] [id number]. Yordan Holt MONOM% 4.0 % Normal 1.7-12.0 [facility] Comment on above: Performed By: #### C MONSTER ####[facility] [address] [place] [id number]. Yordan Holt MPV 9.2 fL Critically low 9.5-13.5 [facility] Comment on above: Performed By: #### C MONSTER ####[facility] [address]sv[address] [place] [id number]. Yordan Holt MYELOCYTE # Normal [facility] Comment on above: Performed By: #### C MONSTER ####[facility] [address] [place] [id number]. Yordan Holt MYELOCYTE % Normal [facility] Comment on above: Performed By: #### C MONSTER ####[facility] [address]dt[address] [place] [id number]. Yordan Holt NRBC Normal [facility] Comment on above: Performed By: #### C MONSTER ####[facility] Jx[address]zxej[address] [place] [id number]. Yordan Holt PLT 205 103/ul Normal 150-450 [facility] Comment on above: Performed By: #### C MONSTER ####[facility] Cx[address]zgayqy58[address] [place] [id number]. Yordan Holt RBC 5.27 106/ul Normal 4.70-6.10 [facility] Comment on above: Performed By: #### C MONSTER ####[facility] R[address]ucatx[address] [place] [address]Dr. Yordan Holt RDW 11.7 % Normal 11.0-15.[address] [facility] Comment on above: Performed By: #### C MONSTER ####[facility] Lrqxnvbsmr[address] [place] [id number]. Yordan Holt SEG # 12.24 103/ul Critically high 1.40-6.[address] [facility] Comment on above: Performed By: #### C MONSTER ####[facility] Ajz[address]klgcd4604 [place] [id number]. Yordan Holt SEG % 92.0 % Critically high 43.0-75.0 [facility] Comment on above: Performed By: #### C MONSTER ####[facility] R[address]uzmsn8[address] [place] [id number]. Yordan Holt WBC 13.3 103/ul Critically high 4.0-11.0 [facility] Comment on above: Performed By: #### C MONSTER ####[facility] [address] [place] [address]Dr. Yordan Holt CULTURE URINEon 02-11-2023 CULTURE URINE Culture Observations : NO GROWTH. Normal [facility] Comment on above: Performed By: #### U RCX #### [facility] [address] [address] [address] Yordan Holt ER URINE PROFILEon 3 Bilirubin Ql (U) Negative Normal NEGATIVE [facility] Comment on above: Performed By: #### U MICRO, ERUR ####[facility] [address] [place] [address]Dr. Yordan Holt Clarity (U) CLOUDY Abnormal CLEAR [facility] Comment on above: Performed By: #### U MICRO, ERUR ####[facility] [address] [place], [place] [address]Dr. Yordan Holt Color (U) YELLOW Normal YELLOW [facility] Comment on above: Performed By: #### U MICRO, ERUR ####[facility] Fc[address] [place], [place] [address]Dr. Yordan RICKSAHD A micrscopic examina tion will be performed if indicated. Normal [facility] Comment on above: Performed By: #### U MICRO, ERUR ####[facility] Ab[address]we[address] [place], [place] [address]Dr. Yordan Holt Glucose Ql (U) Negative Normal NEGATIVE [facility] Comment on above: Performed By: #### U MICRO, ERUR ####[facility] [address] [place], [place] [address]Dr. Yordan Holt Hemoglobin Ql (U) LARGE Abnormal NEGATIVE [facility] Comment on above: Performed By: #### U MICRO, ERUR ####[facility] [address] [place], [place] [address]Dr. Yordan Holt Ketones Ql (U) 15 mg/dl Abnormal NEGATIVE [facility] Comment on above: Performed By: #### U MICRO, ERUR ####[facility] [address] [place], [place] [address]Dr. Yordan Holt LEUKOCYTES MODERATE Abnormal NEGATIVE [facility] Comment on above: Performed By: #### U MICRO, ERUR ####[facility] [address] [place], [place] [address]Dr. Yordan Holt Nitrite Ql (U) Negative Normal NEGATIVE [facility] Comment on above: Performed By: #### U MICRO, ERUR ####[facility] [address] [place] [address]Dr. Yordan Holt pH (U) 6.0 [pH] Normal 5-9 [facility] Comment on above: Performed By: #### U MICRO, ERUR ####[facility] [address] [place] [address]Dr. Yordan Holt Protein (U) [Mass/Vol] 100 mg/dL Abnormal NEGAT DEZ/ TRACE [facility] Comment on above: Performed By: #### U MICRO, ERUR ####[facility] [address] [place] [address]Dr. Yordan Holt SPEC GRAVITY 1.020 Normal 1.005-<=1. [address] [facility] Comment on above: Performed By: #### U MICRO, ERUR ####[facility] [address] [place] [address]Dr. Yordan Holt UR MICRO IND INDICATED Normal [facility] Comment on above: Performed By: #### U MICRO, ERUR ####[facility] [address] [place] [address]Dr. Yordan Holt Urobilinogen Qn (U) 1.0 {Ritu'U}/dL Normal 0.2 - 1. 0 [facility] Comment on above: Performed By: #### U MICRO, ERUR ####[facility] [address] [place] [address]Dr. Yordan Holt LIPASEon 02-11-2023 Lipase [Catalytic activity/Vol] 146.0 U/L Normal 73.0-393.[address] [facility] Comment on above: Performed By: #### L IPA, CMP #### [facility] [address] [place] [address] Dr. Yordan Holt PROF 14(COMP METB)on 023 Albumin [Mass/Vol] 3.9 g/dL Normal 3.4-5.[address] [facility] Comment on above: Performed By: #### L IPA, CMP #### [facility] [address] [place] [address] Dr. Yordan Holt Albumin/Globulin [Mass ratio] 1.0 {ratio} Normal [facility] Comment on above: Performed By: #### L IPA, CMP #### [facility] [address] [place] [address] Dr. Yordan Holt ALP [Catalytic activity/Vol] 79 U/L Normal 46-[address] [facility] Comment on above: Performed By: #### L IPA, CMP #### [facility] [address] [place] [address] [address] Yordan Holt ALT [Catalytic activity/Vol] 22 U/L Normal 16-[address] [facility] Comment on above: Performed By: #### L IPA, CMP #### [facility] [address] [place] [address] Dr. Yordan Holt Anion gap [Moles/Vol] 13.6 mmol/L Normal [facility] Comment on above: Performed By: #### L IPA, CMP #### [facility] [address] [place] [address] Dr. Yordan Holt AST [Catalytic activity/Vol] 17 U/L Normal 15-[address] [facility] Comment on above: Performed By: #### L IPA, CMP #### [facility] [address] [place] [address] Dr. Yordan Holt Bilirubin [Mass/Vol] 0.7 mg/dL Normal 0.2-1.[address] [facility] Comment on above: Performed By: #### L IPA, CMP #### [facility] [address] [place] [address] Dr. Yordan Holt Calcium [Mass/Vol] 8.7 mg/dL Normal 8.5-10.[address] [facility] Comment on above: Performed By: #### L IPA, CMP #### [facility] [address] [place] [address] Dr. Yordan Holt Chloride [Moles/Vol] 99 mmol/L Normal 98-[address] [facility] Comment on above: Performed By: #### L IPA, CMP #### [facility] [address] [place] [address] Dr. Yordan Holt CO2 [Moles/Vol] 27.3 mmol/L Normal 21.0-32.[address] [facility] Comment on above: Performed By: #### L IPA, CMP #### [facility] [address] [place] [address] [address] Yordan Holt Creatinine [Mass/Vol] 1.44 mg/dL Critically high 0.70-1.[address] [facility] Comment on above: Performed By: #### L IPA, CMP #### [facility] [address] [place] [address] [address] Yordan Holt EGFR-AF GABONESE >60 Normal >=[address] [facility] Comment on above: Performed By: #### L IPA, CMP #### [facility] [address] [place] [address] Dr. Yordan Holt EGFR-NON AF GABONESE 51 mL/min/1.73m2 Critically low >=[address] [facility] Comment on above: Performed By: #### L IPA, CMP #### [facility] [address] [place] [address] [address] Yordan Holt Globulin (S) [Mass/Vol] 3.9 g/dL Normal [facility] Comment on above: Performed By: #### L IPA, CMP #### [facility] [address] [place] [address] Dr. Yordan Holt Glucose [Mass/Vol] 161 mg/dL Critically high 74-106 [facility] Comment on above: Performed By: #### L IPA, CMP #### [facility] [address] [place] [address] [address] Yordan Holt Potassium [Moles/Vol] 3.6 mmol/L Normal 3.5-5.[address] [facility] Comment on above: Performed By: #### L IPA, CMP #### [facility] [address] [place] [address] Dr. Yordan Holt Protein [Mass/Vol] 7.8 g/dL Normal 6.4-8.[address] [facility] Comment on above: Performed By: #### L IPA, CMP #### [facility] [address] [place] [address] Dr. Yordan Holt Sodium [Moles/Vol] 137 mmol/L Normal 136-145 [facility] Comment on above: Performed By: #### L IPA, CMP #### [facility] [address] [place] [address] [address] Yordan Holt Urea nitrogen [Mass/Vol] 16.0 mg/dL Normal 7.0-18.[address] [facility] Comment on above: Performed By: #### L IPA, CMP #### [facility] [address] [place] [address] [address] Yordan Holt Urea nitrogen/Creatinine [Mass ratio] 11.1 mg/mg Normal [facility] Comment on above: Performed By: #### L IPA, CMP #### [facility] [address] [place] [address] [address] Yordan Holt TROPONIN, HIGH SENSITIVITYon 02-11-2023 HSTROP 7.4 pg/mL Normal 4.0-76.1 [facility] Comment on above: Result Comment: CUT- OFF POINTS HAVE BEEN ESTABLISHED BASED ON THE FOURTH UNIVERSAL DEFINITIONS OF MYOCARDIAL INFARCTION. THE UPPER REFERENCE LIMIT (URL) OF TROPONIN, DEFINED THE 99TH PERCENTILE OF cTnI DISTRIBUTION IN A REFERENCE POPULATION, HAS BEEN CONFIRMED THE DECISION THRESHOLD FOR [place] DIAGNOSIS. Performed By: #### H STROPN #### [facility] [address] [place] [address] [address] Yordan Holt URINE MICROSCOPIC ONLYon AMORPHOUS CRYSTALS RARE Normal [facility] Comment on above: Performed By: #### U MICRO, ERUR ####[facility] [address] [place] [address]DrJorge Alberto Holt BACTERIA TRACE Abnormal NONE SEEN [facility] Comment on above: Performed By: #### U MICRO, ERUR ####[facility] [address] [place] [address]DrJorge Alberto Holt Bacteria identified Cx Nom (U) INDICATED Normal [facility] Comment on above: Performed By: #### U MICRO, ERUR ####[facility] [address] [place] [address]DrJorge Alberto Holt CAST NONE SEEN Normal NONE SEEN [facility] Comment on above: Performed By: #### U MICRO, ERUR ####[facility] [address]zjd[address] [place] [address]Dr. Yordan Holt Crystals LM Nom (Urine sed) SEEN Abnormal NONE SEEN [facility] Comment on above: Performed By: #### U MICRO, ERUR ####[facility] [address] [place] [address]Dr. Yordan Holt Epithelial cells LM Ql (Urine sed) RARE Normal NONE SEEN /RARE [facility] Comment on above: Performed By: #### U MICRO, ERUR ####[facility] [address]mwtajts[address] [place] [address]Dr. Yordan Holt MUCOUS SMALL Abnormal NONE SEEN [facility] Comment on above: Performed By: #### U MICRO, ERUR ####[facility] [address]qrlcyplf[address] [place] [address]Dr. Yordan Holt RBC (U) [#/Vol] /uL Abnormal 0-2 [facility] Comment on above: Performed By: #### U MICRO, ERUR ####[facility] [address]tawe[address]qn[address] [place] [address]Dr. Yordan Holt WBC 50-75 Abnormal NONE SEEN [facility] Comment on above: Performed By: #### U MICRO, ERUR ####[facility] [address]xqjm[address] [place] [address]Dr. Yordan Holt XR ABD FLAT UP_PA Kailey [...] GRISEL THOMAS Date: 2023-02-11 10:02 Normal [facility] CYTOLOGYon 02-10-2023 SENT TO REF LAB 02/10/2023 Normal [facility] Comment on above: Performed By: #### C YTO #### [facility] [address] [address] [address] Yordan Holt CBC AUTO DIFFon 01-28-2023 BASO # 0.0 103/ul Normal 0.0-0.1 [facility] Comment on above: Performed By: #### C BC ####[facility] [address]xegkmj[address] [place] [address]DrJorge Alberto Holt Basophils/100 WBC (Bld) 0.7 % Normal 0.2-2.0 [facility] Comment on above: Performed By: #### C BC ####[facility] [address] [place], [place] [address]Dr. Yordan Holt EO # 0.0 103/ul Normal 0.0-0.7 [facility] Comment on above: Performed By: #### C BC ####[facility] [address] [place], [place] [address]Dr. Yordan Holt Eosinophils/100 WBC (Bld) 0.0 % Critically low 0.9-7.0 [facility] Comment on above: Performed By: #### C BC ####[facility] Nyhbl[address] [place], [place] [address]Dr. Yordan Holt Erythrocyte distribution width (RBC) [Ratio] 12.3 % Normal 11.0-15.0 [facility] Comment on above: Performed By: #### C BC ####[facility] Nludbphdaq[address] [place], [place] [address]DrJorge Alberto Holt Hematocrit (Bld) [Volume fraction] 43.2 % Normal 42.0-54.0 [facility] Comment on above: Performed By: #### C BC ####[facility] Vuqxucc[address] [place], [place] [address]DrJorge Alberto Holt Hemoglobin (Bld) [Mass/Vol] 14.8 g/dL Normal 14.0-18.0 [facility] Comment on above: Performed By: #### C BC ####[facility] [address]qvq[address] [place], [place] [address]DrJorge Alberto Holt IG # 0.01 10e3/ul Normal 0.00-0.[address] [facility] Comment on above: Performed By: #### C BC ####[facility] [address]pcgd[address] [place] [address]DrJorge Alberto Holt IG % 0.2 % Normal 0.0-0.[address] [facility] Comment on above: Performed By: #### C BC ####[facility] [address]teheribh[address] [place] [address]DrJorge Alberto Holt LYMPH # 1.0 103/ul Critically low 1.2-3.8 [facility] Comment on above: Performed By: #### C BC ####[facility] [address]apknc[address] [place] [address]DrJorge Alberto Holt Lymphocytes/100 WBC (Bld) 23.4 % Normal 20.5-60.[address] [facility] Comment on above: Performed By: #### C BC ####[facility] [address]teed[address] [place] [address]DrJorge Alberto Holt MANUAL DIFF REQ NO Normal [facility] Comment on above: Performed By: #### C BC ####[facility] [address] [place] [address]DrJorge Alberto Holt MCH (RBC) [Entitic mass] 31.1 pg Normal 25.9-34.[address] [facility] Comment on above: Performed By: #### C BC ####[facility] [address]abw[address] [place] [address]DrJorge Alberto Holt MCHC (RBC) [Mass/Vol] 34.3 g/dL Normal 29.9-35.2 [facility] Comment on above: Performed By: #### C BC ####[facility] [address]wyftbr[address] [place] [address]DrJorge Alberto Holt MCV (RBC) [Entitic vol] 90.8 fL Normal 80.0-94.0 [facility] Comment on above: Performed By: #### C BC ####[facility] [address]rakop[address] [place] [address]DrJorge Alberto Holt MONO # 0.4 103/ul Normal 0.3-0.8 [facility] Comment on above: Performed By: #### C BC ####[facility] [address] [place] [address]DrJorge Alberto Holt Monocytes/100 WBC (Bld) 10.2 % Normal 1.7-12.0 [facility] Comment on above: Performed By: #### C BC ####[facility] [address]sezr[address] [place] [address]Dr. Yordan Holt NEUT # 2.8 103/ul Normal 1.4-6.5 [facility] Comment on above: Performed By: #### C BC ####[facility] [address]tytt[address]cs[address] [place] [address]DrJorge Alberto Yordan Holt Neutrophils/100 WBC (Bld) 65.5 % Normal 43.0-75.0 [facility] Comment on above: Performed By: #### C BC ####[facility] Ums[address]xl[address] [place], [place] [address]DrJorge Alberto Yordan Holt Platelet mean volume (Bld) [Entitic vol] 9.2 fL Critically low 9.5-13.5 [facility] Comment on above: Performed By: #### C BC ####[facility] [address]se[address] [place], [place] [address]Dr. Yordan Holt PLT 172 103/ul Normal 150-450 [facility] Comment on above: Performed By: #### C BC ####[facility] [address]unw[address] [place] [id number]. Yordan Holt RBC 4.76 106/ul Normal 4.70-6.10 [facility] Comment on above: Performed By: #### C BC ####[facility] [address] [place], [place] [address]DrJorge Alberto Yordan Holt WBC 4.2 103/ul Normal 4.0-11.0 [facility] Comment on above: Performed By: #### C BC ####[facility] [address]ft[address] [place], [place] [address]DrJorge Alberto Yordan Jonathon PROF CHEM 8 (BAS METB)on Anion gap [Moles/Vol] 11.6 mmol/L Normal Th [facility] Comment on above: Performed By: #### B MP #### [facility] [address] [address] [address] Yordan Holt Calcium [Mass/Vol] 8.5 mg/dL Normal 8.5-10.[address] [facility] Comment on above: Performed By: #### B MP #### [facility] [address] [address] [address] Yordan Holt Chloride [Moles/Vol] 104 mmol/L Normal 98-[address] [facility] Comment on above: Performed By: #### B MP #### [facility] [address] [place] [address] Dr. Yordan Holt CO2 [Moles/Vol] 28.1 mmol/L Normal 21.0-32.[address] [facility] Comment on above: Performed By: #### B MP #### [facility] [address] [place] [address] Dr. Yordan Holt Creatinine [Mass/Vol] 1.00 mg/dL Normal 0.70-1.[address] [facility] Comment on above: Performed By: #### B MP #### [facility] [address] [place] [address] Dr. Yordan Holt EGFR-AF GABONESE >60 Normal >=[address] [facility] Comment on above: Performed By: #### B MP #### [facility] [address] [place] [address] Dr. Yordan Holt EGFR-NON AF GABONESE >60 Normal >=[address] [facility] Comment on above: Performed By: #### B MP #### [facility] [address] [address] [address] Yordan Holt Glucose [Mass/Vol] 117 mg/dL Critically high 74-106 [facility] Comment on above: Performed By: #### B MP #### [facility] [address] [place] [address] Dr. Yordan Holt Potassium [Moles/Vol] 3.7 mmol/L Normal 3.5-5.[address] [facility] Comment on above: Performed By: #### B MP #### [facility] [address] [place], [place] [address] Dr. Yordan Holt Sodium [Moles/Vol] 140 mmol/L Normal 136-145 [facility] Comment on above: Performed By: #### B MP #### [facility] [address] [place], [place] [address] Dr. Yordan Holt Urea nitrogen [Mass/Vol] 13.0 mg/dL Normal 7.0-18.[address] [facility] Comment on above: Performed By: #### B MP #### [facility] [address] [place], [place] [address] Dr. Yordan Holt Urea nitrogen/Creatinine [Mass ratio] 13.0 mg/mg Normal [facility] Comment on above: Performed By: #### B MP #### [facility] [address] [place], [place] [address] ABD/PELV WO W CONon 12-25 CT ABD/PELV WO W CON EXAMINATION: CT uro gram with and without contrast 12/24/2022 COMPARISON STUDY: [...] noted. Prior cholecystectomy. Electronically authenticated by: ELIAS ROSARIO Date: 2022-12-25 20:21 Normal [facility] OPERATIVE REPORTon 9 OPERATIVE REPORT [address] [address] OPERATIVE REPORT PATIENT NAME: VENITA ROSENBERG : 1965 MED REC NO: [id number] ROOM: ACCOUNT NO: [id number] ADMIT DATE: 05/16/2019 PROVIDER: Bg Humphrey DATE [...] table. He received preoperative IV antibiotics and HAMLET sequentials. Following smooth induction of general anesthesia, [...] rectus fascia with 0 Vicryl in a flwycw-qq-wxgbv fashion. Skin edges were reapproximated with skin [...] two weeks for staple removal. BG HUMPHREY [id number] Doc#: [id number] CC: Parth Humphrey [facility] Surgical Pathologyon 019 Surgical Pathology (NOTE) [id number] [facility] [address] [place] [address]. [place], [place] [address] SURGICAL PATHOLOGY CONSULTATION Patient Name: VENITA ROSENBERGJorge Alberto [facility] Rec: [id number] Path Number: [id number] Collected: 05/16/2019 Received: 05/17/2019 Reported: 05/18/2019 13:00 [...] is grossly unremarkable. No masses are identified. Telephone Installer sections 1cs. tm Microscopic Description Microscopic examination performed. Normal [facility] Comment on above: Performed By: #### T ROPI, CDP, PTT, PT, BNP, BMP #### [facility] [address] [place] [address] [place] [address] Warehouse Manager: Rito Morris MD Basic Metabolic Profon 05-01 Anion gap [Moles/Vol] 15 mmol/L Normal -17 [facility] Comment on above: Performed By: #### T ROPI, CDP, PTT, PT, BNP, BMP #### [address] [place] [address] Warehouse Manager: Rito Morris MD BUN/CRE Ratio 13 Normal - [facility] Comment on above: Performed By: #### T ROPI, CDP, PTT, PT, BNP, BMP #### [facility] [address] [place] [address] Warehouse Manager: Rito Morris MD Calcium [Mass/Vol] 9.0 mg/dL Normal 8.6-10.4 [facility] Comment on above: Performed By: #### T ROPI, CDP, PTT, PT, BNP, BMP #### [address] [place] [address] Warehouse Manager: Rito Morris MD Chloride [Moles/Vol] 98 mmol/L Normal 98-107 [facility] Comment on above: Performed By: #### T ROPI, CDP, PTT, PT, BNP, BMP #### [facility] [address] [place] [address] Warehouse Manager: Rito Morris MD CO2 [Moles/Vol] 24 mmol/L Normal 20-31 [facility] Comment on above: Performed By: #### T ROPI, CDP, PTT, PT, BNP, BMP #### [facility] [address] [place] [address] Warehouse Manager: Rito Morris MD Creatinine [Mass/Vol] 0.91 mg/dL Normal 0.70-1.20 [facility] Comment on above: Performed By: #### T ROPI, CDP, PTT, PT, BNP, BMP #### [address] [place] [address] Warehouse Manager: Rito Morris MD GFR, Amer >60 Normal >60 [facility] Comment on above: Performed By: #### T ROPI, CDP, PTT, PT, BNP, BMP #### [address] [place], [place] [id number] Warehouse Manager: Rito Morris MD GFR,non Amer >60 Normal >60 [facility] Comment on above: Performed By: #### T ROPI, CDP, PTT, PT, BNP, BMP #### [facility] [address] [place] [address] Warehouse Manager: Rito Morris MD Glucose [Mass/Vol] 160 mg/dL High 70-99 [facility] Comment on above: Performed By: #### T ROPI, CDP, PTT, PT, BNP, BMP #### [facility] [address] [place] [address] Warehouse Manager: Rito Morris MD Potassium [Moles/Vol] 3.8 mmol/L Normal 3.7-5.3 [facility] Comment on above: Performed By: #### T ROPI, CDP, PTT, PT, BNP, BMP #### [facility] [address] [place] [address] Warehouse Manager: Rito Morris MD Sodium [Moles/Vol] 137 mmol/L Normal 135-144 [facility] Comment on above: Performed By: #### T ROPI, CDP, PTT, PT, BNP, BMP #### [facility] [address] [place] [address] Warehouse Manager: Rito Morris MD Urea nitrogen [Mass/Vol] 12 mg/dL Normal 6-20 [facility] Comment on above: Performed By: #### T ROPI, CDP, PTT, PT, BNP, BMP #### [facility] [address] [place] [address] Warehouse Manager: Rito Morris MD (cont.) [facility] Comment on above: Result Comment: Aver age GFR for 50-59 years old: 93 mL/min/1.73sq m Chronic Kidney Disease: <60 mL/min/1.73sq m Kidney failure: <15 mL/min/1.73sq m eGFR calculated using average adult body mass. Additional eGFR calculator available at: http://www.TellFi.Sayah/multiple_crcl_2012.htm Performed By: #### T ROPI, CDP, PTT, PT, BNP, BMP #### [facility] [address] [place] [address] Warehouse Manager: Rito Morris MD Staging: [facility] Comment on above: Result Comment: Stag e 1: Some kidney damage normal GFR Stage 2: Mild kidney damage GFR 60-89 Stage 3: Moderate kidney damage GFR 30-59 Stage 4: Severe kidney damage GFR 15-29 Stage 5: Severe kidney damage GFR <15 ESRD - chronic treatment by dialysis or transplant Performed By: #### T ROPI, CDP, PTT, PT, BNP, BMP #### [facility] [address] [place] [address] Warehouse Manager: Rito Morris MD CBC with Diffon 05-01-2019 Abs. Basophil 0.09 k/uL Normal 0.0-0.2 [facility] Comment on above: Performed By: #### T ROPI, CDP, PTT, PT, BNP, BMP #### [facility] [address] [place] [address] Warehouse Manager: Rito Morris MD Abs.Imm.Granulocyte 0.09 k/uL Normal 0.00-0.30 [facility] Comment on above: Performed By: #### T ROPI, CDP, PTT, PT, BNP, BMP #### [address] [place] [id number] Warehouse Manager: Rito Morris MD Abs.Neutrophil (Seg) 6.94 k/uL Normal 1.50-8.10 [facility] Comment on above: Performed By: #### T ROPI, CDP, PTT, PT, BNP, BMP #### [address] [place] [address] Warehouse Manager: Rito Morris MD Basophils/100 WBC (Bld) 1 % Normal 0-2 [facility] Comment on above: Performed By: #### T ROPI, CDP, PTT, PT, BNP, BMP #### [address] [place] [id number] Warehouse Manager: Rito Morris MD Eosinophils (Bld) [#/Vol] 0.27 10*3/uL Normal 0.00-0.44 [facility] Comment on above: Performed By: #### T ROPI, CDP, PTT, PT, BNP, BMP #### [address] [place] [id number] Warehouse Manager: Rito Morris MD Eosinophils/100 WBC (Bld) 3 % Normal 1-4 [facility] Comment on above: Performed By: #### T ROPI, CDP, PTT, PT, BNP, BMP #### [facility] [address] [place], [facility] Warehouse Manager: Rito Morris MD Immature granulocytes (Bld) [#/Vol] 1 % High 0 [facility] Comment on above: Performed By: #### T ROPI, CDP, PTT, PT, BNP, BMP #### [facility] [address] [place], [facility]83 Warehouse Manager: Rito Morris MD Lymphocytes (Bld) [#/Vol] 0.71 10*3/uL Low 1.10-3.70 [facility] Comment on above: Performed By: #### T ROPI, CDP, PTT, PT, BNP, BMP #### [facility] [address] [place], [place] [address] Warehouse Manager: Rito Morris MD Lymphocytes/100 WBC (Bld) 8 % Low 24-43 [facility] Comment on above: Performed By: #### T ROPI, CDP, PTT, PT, BNP, BMP #### [address] [place] [address] Warehouse Manager: Rito Morris MD Monocytes (Bld) [#/Vol] 0.80 10*3/uL Normal 0.10-1.20 [facility] Comment on above: Performed By: #### T ROPI, CDP, PTT, PT, BNP, BMP #### [facility] [address] [place], [facility]83 Warehouse Manager: Rito Morris MD Monocytes/100 WBC (Bld) 9 % Normal 3-12 [facility] Comment on above: Performed By: #### T ROPI, CDP, PTT, PT, BNP, BMP #### [facility] [address] [place] [address] Warehouse Manager: Rito Morris MD Morphology Terrence (Bld) [Interp] Normal Normal [facility] Comment on above: Performed By: #### T ROPI, CDP, PTT, PT, BNP, BMP #### [facility] [address] [place], [place] [address] Warehouse Manager: Rito Morris MD Neutrophil (Seg) 78 % High 36-65 [facility] Comment on above: Performed By: #### T ROPI, CDP, PTT, PT, BNP, BMP #### [facility] [address] [place] [address]83 Warehouse Manager: Rito Morris MD Erythrocyte distribution width (RBC) [Ratio] 12.2 % Normal 11.8-14.4 [facility] Comment on above: Performed By: #### T ROPI, CDP, PTT, PT, BNP, BMP #### [facility] [address] [place], [facility]83 Warehouse Manager: Rito Morris MD Hematocrit (Bld) [Volume fraction] 47.8 % Normal 40.7-50.3 [facility] Comment on above: Performed By: #### T ROPI, CDP, PTT, PT, BNP, BMP #### [address] [place], [place] 18[address]83 Warehouse Manager: Rito Morris MD Hemoglobin (Bld) [Mass/Vol] 15.9 g/dL Normal 13.0-17.0 [facility] Comment on above: Performed By: #### T ROPI, CDP, PTT, PT, BNP, BMP #### [facility] [address] [place], [place] 3867183 Warehouse Manager: Rito Morris MD MCH (RBC) [Entitic mass] 30.6 pg Normal 25.2-33.5 [facility] Comment on above: Performed By: #### T ROPI, CDP, PTT, PT, BNP, BMP #### [facility] [address] [place] [id number] Warehouse Manager: Rito Morris MD MCHC (RBC) [Mass/Vol] 33.3 g/dL Normal 28.4-34.8 [facility] Comment on above: Performed By: #### T ROPI, CDP, PTT, PT, BNP, BMP #### [address] [place], [facility]83 Warehouse Manager: Rito Morris MD MCV (RBC) [Entitic vol] 91.9 fL Normal 82.6-102.9 [facility] Comment on above: Performed By: #### T ROPI, CDP, PTT, PT, BNP, BMP #### [address] [place] [address] Warehouse Manager: Rito Morris MD NRBC Automated 0.0 per 100 WBC Normal 0.0 [facility] Comment on above: Performed By: #### T ROPI, CDP, PTT, PT, BNP, BMP #### [address] [place], [facility]83 Warehouse Manager: Rito Morris MD Platelet mean volume (Bld) [Entitic vol] 9.6 fL Normal 8.1-13.5 [facility] Comment on above: Performed By: #### T ROPI, CDP, PTT, PT, BNP, BMP #### [address] [place], [place] [address] Warehouse Manager: Rito Morris MD Platelets (Bld) [#/Vol] 185 10*3/uL Normal 138-453 [facility] Comment on above: Performed By: #### T ROPI, CDP, PTT, PT, BNP, BMP #### [address] [place] [address] Warehouse Manager: Rito Morris MD RBC (Bld) [#/Vol] 5.20 10*6/uL Normal 4.21-5.77 [facility] Comment on above: Performed By: #### T ROPI, CDP, PTT, PT, BNP, BMP #### [facility] [address] [place], [facility]83 Warehouse Manager: Rito Morris MD WBC (Bld) [#/Vol] 8.9 10*3/uL Normal 3.5-11.3 [facility] Comment on above: Performed By: #### T ROPI, CDP, PTT, PT, BNP, BMP #### [facility] [address] [place], [place] [address] Warehouse Manager: Rito Morris MD Auto Diff Performed NOT REPORTED Normal [facility] Comment on above: Performed By: #### T ROPI, CDP, PTT, PT, BNP, BMP #### [address] [place], [facility]83 Warehouse Manager: Rito Morris MD Platelets (Bld) [#/Vol] NOT REPORTED Normal [facility] Comment on above: Performed By: #### T ROPI, CDP, PTT, PT, BNP, BMP #### [address] [place], [facility]83 Warehouse Manager: Rito Morris MD RBC morphology finding Nom (Bld) NOT REPORTED Normal [facility] Comment on above: Performed By: #### T ROPI, CDP, PTT, PT, BNP, BMP #### [address] [place], [place] [address] Warehouse Manager: Rito Morris MD WBC Morphology NOT REPORTED Normal [facility] Comment on above: Performed By: #### T ROPI, CDP, PTT, PT, BNP, BMP #### [address] [place] [id number] Warehouse Manager: Rito Morris MD Lactic Acidon 05-01-2019 Lactate [Moles/Vol] 2.1 mmol/L Normal 0.5-2.2 [facility] Comment on above: Performed By: #### T ROPI, CDP, PTT, PT, BNP, BMP #### [facility] [address] [place], [place] [address]83 Warehouse Manager: Rito Morris MD Lactate [Moles/Vol] NOT REPORTED Normal 0.7-2.1 [facility] Comment on above: Performed By: #### T ROPI, CDP, PTT, PT, BNP, BMP #### [facility] [address] [place], [place] 033[address]83 Warehouse Manager: Rito Morris MD Lipaseon 05-01-2019 Lipase [Catalytic activity/Vol] 23 U/L Normal 13-60 [facility] Comment on above: Performed By: #### T ROPI, CDP, PTT, PT, BNP, BMP #### [facility] [address] [place], [place] 3944183 Warehouse Manager: Rito Morris MD Liver Profileon 05-01-2019 Albumin [Mass/Vol] 4.3 g/dL Normal 3.5-5.2 [facility] Comment on above: Performed By: #### T ROPI, CDP, PTT, PT, BNP, BMP #### [facility] [address] [place], [place] 2223483 Warehouse Manager: Rito Morris MD Albumin/Globulin [Mass ratio] 1.5 {ratio} Normal 1.0-2.5 [facility] Comment on above: Performed By: #### T ROPI, CDP, PTT, PT, BNP, BMP #### [facility] [address] [place], [place] 600[address]83 Warehouse Manager: Rito Morris MD Alkaline Phos 65 U/L Normal 40-129 [facility] Comment on above: Performed By: #### T ROPI, CDP, PTT, PT, BNP, BMP #### [facility] [address] [place] [address] Warehouse Manager: Rito Morris MD ALT [Catalytic activity/Vol] 12 U/L Normal 5-41 [facility] Comment on above: Performed By: #### T ROPI, CDP, PTT, PT, BNP, BMP #### [facility] [address] [place], [facility]83 Warehouse Manager: Rito Morris MD AST [Catalytic activity/Vol] 16 U/L Normal <40 [facility] Comment on above: Performed By: #### T ROPI, CDP, PTT, PT, BNP, BMP #### [facility] [address] [place], [facility]83 Warehouse Manager: Rito Morris MD Bilirubin Ql (U) 0.61 mg/dL Normal 0.3-1.2 [facility] Comment on above: Performed By: #### T ROPI, CDP, PTT, PT, BNP, BMP #### [address] [place], [facility]83 Warehouse Manager: Rito Morris MD Bilirubin, Indirect CANNOT BE CALCULATED Normal 0.00-1 .00 [facility] Comment on above: Performed By: #### T ROPI, CDP, PTT, PT, BNP, BMP #### [address] [place], [facility]83 Warehouse Manager: Rito Morris MD Bilirubin.direct [Mass/Vol] mg/dL Normal <0.31 [facility] Comment on above: Performed By: #### T ROPI, CDP, PTT, PT, BNP, BMP #### [address] [place], [facility] Warehouse Manager: Rito Morris MD Protein [Mass/Vol] 7.2 g/dL Normal 6.4-8.3 [facility] Comment on above: Performed By: #### T ROPI, CDP, PTT, PT, BNP, BMP #### [address] [place] [address] Warehouse Manager: Rito Morris MD Globulin (S) [Mass/Vol] NOT REPORTED Normal 1.5-3.8 [facility] Comment on above: Performed By: #### T ROPI, CDP, PTT, PT, BNP, BMP #### [facility] [address] [place] [address] Warehouse Manager: Rito Morris MD Troponinon 05-01-2019 Troponin I.cardiac [Mass/Vol] Normal [facility] Comment on above: Result Comment: Refe rence [...] ROPI, CDP, PTT, PT, BNP, BMP #### [facility] [address] [place] [address] Warehouse Manager: Rito Morris MD Troponin I.cardiac [Mass/Vol] ng/mL Normal <0.03 [facility] Comment on above: Result Comment: Trop onin T results cannot be compared to Troponin-I results. Performed By: #### T ROPI, CDP, PTT, PT, BNP, BMP #### [facility] [address] [place] [address] Warehouse Manager: Rito Morris MD Troponin I.cardiac [Mass/Vol] NOT REPORTED Normal 0-22 [facility] Comment on above: Performed By: #### T ROPI, CDP, PTT, PT, BNP, BMP #### [facility] [address] [place] [address] Warehouse Manager: Rito Morris MD US GALLBLADDER RUQon 019 [...] visible cholelithiasis. No significant pericholecystic fluid. 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 [address] Warehouse Manager: Rito Morris MD Basic Metabolic Profon 04-28 (cont.) [facility] Comment on above: Result Comment: Aver age GFR for 50-59 years old: 93 mL/min/1.73sq m Chronic Kidney Disease: <60 mL/min/1.73sq m Kidney failure: <15 mL/min/1.73sq m eGFR calculated using average adult body mass. Additional eGFR calculator available at: http://www.globalSojern.com/multiple_crcl_2012.htm Performed By: #### T ROPI, CDP, PTT, PT, BNP, BMP #### [facility] [address] [place] [address] Warehouse Manager: Rito Morris MD Anion gap [Moles/Vol] 11 mmol/L Normal 9-17 [facility] Comment on above: Performed By: #### T ROPI, CDP, PTT, PT, BNP, BMP #### [facility] [address] [place] [address] Warehouse Manager: Rito Morris MD BUN/CRE Ratio 13 Normal 9-20 [facility] Comment on above: Performed By: #### T ROPI, CDP, PTT, PT, BNP, BMP #### [facility] [address] [place], [place] [id number] Warehouse Manager: Rito Morris MD Calcium [Mass/Vol] 8.9 mg/dL Normal 8.6-10.4 [facility] Comment on above: Performed By: #### T ROPI, CDP, PTT, PT, BNP, BMP #### [facility] [address] [place] [address] Warehouse Manager: Rito Morris MD Chloride [Moles/Vol] 101 mmol/L Normal 98-107 [facility] Comment on above: Performed By: #### T ROPI, CDP, PTT, PT, BNP, BMP #### [address] [place] [address] Warehouse Manager: Rito Morris MD CO2 [Moles/Vol] 26 mmol/L Normal 20-31 [facility] Comment on above: Performed By: #### T ROPI, CDP, PTT, PT, BNP, BMP #### [address] [place] [address] Warehouse Manager: Rito Morris MD Creatinine [Mass/Vol] 0.86 mg/dL Normal 0.70-1.20 [facility] Comment on above: Performed By: #### T ROPI, CDP, PTT, PT, BNP, BMP #### [facility] [address] [place] [address] Warehouse Manager: Rito Morris MD GFR, Amer >60 Normal >60 [facility] Comment on above: Performed By: #### T ROPI, CDP, PTT, PT, BNP, BMP #### [facility] [address] [place] [id number] Warehouse Manager: Rito Morris MD GFR,non Amer >60 Normal >60 [facility] Comment on above: Performed By: #### T ROPI, CDP, PTT, PT, BNP, BMP #### [facility] [address] [place] [id number] Warehouse Manager: Rito Morris MD Glucose [Mass/Vol] 100 mg/dL High 70-99 [facility] Comment on above: Performed By: #### T ROPI, CDP, PTT, PT, BNP, BMP #### [facility] [address] [place] [address] Warehouse Manager: Rito Morris MD Potassium [Moles/Vol] 3.9 mmol/L Normal 3.7-5.3 [facility] Comment on above: Performed By: #### T ROPI, CDP, PTT, PT, BNP, BMP #### [address] [place], [place] [id number] Warehouse Manager: Rito Morris MD Sodium [Moles/Vol] 138 mmol/L Normal 135-144 [facility] Comment on above: Performed By: #### T ROPI, CDP, PTT, PT, BNP, BMP #### [facility] [address] [place], [place] [id number] Warehouse Manager: Rito Morris MD Staging: Normal [facility] Comment on above: Result Comment: Stag e 1: Some kidney damage normal GFR Stage 2: Mild kidney damage GFR 60-89 Stage 3: Moderate kidney damage GFR 30-59 Stage 4: Severe kidney damage GFR 15-29 Stage 5: Severe kidney damage GFR <15 ESRD - chronic treatment by dialysis or transplant Performed By: #### T ROPI, CDP, PTT, PT, BNP, BMP #### [facility] [address] [place] [address] Warehouse Manager: Rito Morris MD Urea nitrogen [Mass/Vol] 11 mg/dL Normal 6-20 [facility] Comment on above: Performed By: #### T ROPI, CDP, PTT, PT, BNP, BMP #### [facility] [address] [place], [facility]83 Warehouse Manager: Rito Morris MD Brain Natri. Peptideon 04-28 Natriuretic peptide B (Bld) [Mass/Vol] 35 pg/mL Normal <300 [facility] Comment on above: Result Comment: Pro- BNP results cannot be compared to BNP results. Performed By: #### T ROPI, CDP, PTT, PT, BNP, BMP #### [facility] [address] [place] [id number] Warehouse Manager: Rito Morris MD Natriuretic peptide B (Bld) [Mass/Vol] Pro-BNP Reference Range: Normal [facility] Comment on above: Result Comment: Rule Out: <300 Shore Zone: Age <50 300-450 Age 50-75 300-900 Age >75 300-1800 Usually represents mild to moderate HF but other cardiopulmonary causes cannot be ruled out. Rule In: Age <50 >450 Age 50-75 >900 Age >75 >1800 Performed By: #### T ROPI, CDP, PTT, PT, BNP, BMP #### [facility] [address] [place], [facility]83 Warehouse Manager: Rito Morris MD CBC with Diffon 04-28-2019 Abs. Basophil <0.03 Normal 0.00-0.20 [facility] Comment on above: Performed By: #### T ROPI, CDP, PTT, PT, BNP, BMP #### [facility] [address] [place], [facility]83 Warehouse Manager: Rito Morris MD Abs.Imm.Granulocyte <0.03 Normal 0.00-0.30 [facility] Comment on above: Performed By: #### T ROPI, CDP, PTT, PT, BNP, BMP #### [facility] [address] [place], [facility]83 Warehouse Manager: Rito Morris MD Abs.Neutrophil (Seg) 2.03 k/uL Normal 1.50-8.10 [facility] Comment on above: Performed By: #### T ROPI, CDP, PTT, PT, BNP, BMP #### [facility] [address] [place], [facility]83 Warehouse Manager: Rito Morris MD Basophils/100 WBC (Bld) 0 % Normal 0-2 [facility] Comment on above: Performed By: #### T ROPI, CDP, PTT, PT, BNP, BMP #### [address] [place] [address] Warehouse Manager: Rito Morris MD Eosinophils (Bld) [#/Vol] 10*3/uL Normal 0.00-0.44 [facility] Comment on above: Performed By: #### T ROPI, CDP, PTT, PT, BNP, BMP #### [address] [place], [place] [address] Warehouse Manager: Rito Morris MD Eosinophils/100 WBC (Bld) 0 % Low 1-4 [facility] Comment on above: Performed By: #### T ROPI, CDP, PTT, PT, BNP, BMP #### [address] [place], [facility]83 Warehouse Manager: Rito Morris MD Erythrocyte distribution width (RBC) [Ratio] 12.0 % Normal 11.8-14.4 [facility] Comment on above: Performed By: #### T ROPI, CDP, PTT, PT, BNP, BMP #### [address] [place], [facility]83 Warehouse Manager: Rito Morris MD Hematocrit (Bld) [Volume fraction] 48.2 % Normal 40.7-50.3 [facility] Comment on above: Performed By: #### T ROPI, CDP, PTT, PT, BNP, BMP #### [address] [place] [id number] Warehouse Manager: Rito Morris MD Hemoglobin (Bld) [Mass/Vol] 15.8 g/dL Normal 13.0-17.0 [facility] Comment on above: Performed By: #### T ROPI, CDP, PTT, PT, BNP, BMP #### [facility] [address] [place] [facility] Warehouse Manager: Rito Morris MD Immature granulocytes (Bld) [#/Vol] 0 % Normal 0 [facility] Comment on above: Performed By: #### T ROPI, CDP, PTT, PT, BNP, BMP #### [facility] [address] [place] [facility]83 Warehouse Manager: Rito Morris MD Lymphocytes (Bld) [#/Vol] 1.22 10*3/uL Normal 1.10-3.70 [facility] Comment on above: Performed By: #### T ROPI, CDP, PTT, PT, BNP, BMP #### [address] [place] [facility]83 Warehouse Manager: Rito Morris MD Lymphocytes/100 WBC (Bld) 33 % Normal 24-43 [facility] Comment on above: Performed By: #### T ROPI, CDP, PTT, PT, BNP, BMP #### [address] [place] [facility]83 Warehouse Manager: Rito Morris MD MCH (RBC) [Entitic mass] 30.6 pg Normal 25.2-33.5 [facility] Comment on above: Performed By: #### T ROPI, CDP, PTT, PT, BNP, BMP #### [facility] [address] [place] [facility]83 Warehouse Manager: Rito Morris MD MCHC (RBC) [Mass/Vol] 32.8 g/dL Normal 28.4-34.8 [facility] Comment on above: Performed By: #### T ROPI, CDP, PTT, PT, BNP, BMP #### [facility] [address] [place], [facility]83 Warehouse Manager: Rito Morris MD MCV (RBC) [Entitic vol] 93.4 fL Normal 82.6-102.9 [facility] Comment on above: Performed By: #### T ROPI, CDP, PTT, PT, BNP, BMP #### [facility] [address] [place], [place] [address] Warehouse Manager: Rito Morris MD Monocytes (Bld) [#/Vol] 0.45 10*3/uL Normal 0.10-1.20 [facility] Comment on above: Performed By: #### T ROPI, CDP, PTT, PT, BNP, BMP #### [facility] [address] [place], [place] [address] Warehouse Manager: Rito Morris MD Monocytes/100 WBC (Bld) 12 % Normal 3-12 [facility] Comment on above: Performed By: #### T ROPI, CDP, PTT, PT, BNP, BMP #### [address] [place], [place] [address] Warehouse Manager: Rito Morris MD Neutrophil (Seg) 55 % Normal 36-65 [facility] Comment on above: Performed By: #### T ROPI, CDP, PTT, PT, BNP, BMP #### [address] [place], [facility]83 Warehouse Manager: Rito Morris MD NRBC Automated 0.0 per 100 WBC Normal 0.0 [facility] Comment on above: Performed By: #### T ROPI, CDP, PTT, PT, BNP, BMP #### [facility] [address] [place] [facility] Warehouse Manager: Rito Morris MD Platelet mean volume (Bld) [Entitic vol] 9.6 fL Normal 8.1-13.5 [facility] Comment on above: Performed By: #### T ROPI, CDP, PTT, PT, BNP, BMP #### [facility] [address] [place], [place] [id number] Warehouse Manager: Rito Morris MD Platelets (Bld) [#/Vol] 181 10*3/uL Normal 138-453 [facility] Comment on above: Performed By: #### T ROPI, CDP, PTT, PT, BNP, BMP #### [facility] [address] [place], [facility]83 Warehouse Manager: Rito Morris MD RBC (Bld) [#/Vol] 5.16 10*6/uL Normal 4.21-5.77 [facility] Comment on above: Performed By: #### T ROPI, CDP, PTT, PT, BNP, BMP #### [address] [place] [address] Warehouse Manager: Rito Morris MD WBC (Bld) [#/Vol] 3.7 10*3/uL Normal 3.5-11.3 [facility] Comment on above: Performed By: #### T ROPI, CDP, PTT, PT, BNP, BMP #### [address] [place], [facility] Warehouse Manager: Rito Morris MD Auto Diff Performed NOT REPORTED Normal [facility] Comment on above: Performed By: #### T ROPI, CDP, PTT, PT, BNP, BMP #### [address] [place], [facility]83 Warehouse Manager: Rito Morris MD Platelets (Bld) [#/Vol] NOT REPORTED Normal [facility] Comment on above: Performed By: #### T ROPI, CDP, PTT, PT, BNP, BMP #### [address] [place] [address] Warehouse Manager: Rito Morris MD RBC morphology finding Nom (Bld) NOT REPORTED Normal [facility] Comment on above: Performed By: #### T ROPI, CDP, PTT, PT, BNP, BMP #### [facility] [address] [place] [address] Warehouse Manager: Rito Morris MD WBC Morphology NOT REPORTED Normal [facility] Comment on above: Performed By: #### T ROPI, CDP, PTT, PT, BNP, BMP #### [facility] [address] [place] [address] Warehouse Manager: Rito Morris MD CT CHEST ABDOMEN PELVIS [...] is unremarkable. No lymphadenopathy or free fluid. Peritoneum/Retroperitoneum: No lymphadenopathy or ascites. Mild atherosclerotic disease without abdominal aortic aneurysm. Bones/Soft Tissues: Unremarkable. IMPRESSION: 1. No pulmonary embolism or acute pulmonary abnormality. 2. Nonspecific mild gallbladder wall thickening. Consider ultrasound for further evaluation. 3. Right renal scarring. Interpreted by: Natacha Hernandez MD Signed by: Natacha Hernandez MD 04/28/19 Final result Normal [facility] Lipaseon 04-28-2019 Lipase [Catalytic activity/Vol] 172 U/L High 13-60 [facility] Comment on above: Performed By: #### L IVP, LIP #### [facility] [address] [place] [address] Warehouse Manager: Rito Morris MD Liver Profileon 04-28-2019 Albumin [Mass/Vol] 4.4 g/dL Normal 3.5-5.2 [facility] Comment on above: Performed By: #### L IVP, LIP #### [facility] [address] [place], [place] [id number] Warehouse Manager: Rito Morris MD Albumin/Globulin [Mass ratio] 1.5 {ratio} Normal 1.0-2.5 [facility] Comment on above: Performed By: #### L IVP, LIP #### [facility] [address] [place] [address] Warehouse Manager: Rito Morris MD Alkaline Phos 68 U/L Normal 40-129 [facility] Comment on above: Performed By: #### L IVP, LIP #### [facility] [address] [place], [place] [id number] Warehouse Manager: Rito Morris MD ALT [Catalytic activity/Vol] 12 U/L Normal 5-41 [facility] Comment on above: Performed By: #### L IVP, LIP #### [facility] [address] [place] [address] Warehouse Manager: Rito Morris MD AST [Catalytic activity/Vol] 14 U/L Normal <40 [facility] Comment on above: Performed By: #### L IVP, LIP #### [facility] [address] [place], [place] [address] Warehouse Manager: Rito Morris MD Bilirubin Ql (U) 0.44 mg/dL Normal 0.3-1.2 [facility] Comment on above: Performed By: #### L IVP, LIP #### [address] [place], [place] 1794383 Warehouse Manager: Rito Morris MD Bilirubin, Indirect CANNOT BE CALCULATED Normal 0.00-1 .00 [facility] Comment on above: Performed By: #### L IVP, LIP #### [address] [place], [place] [address]83 Warehouse Manager: Rito Morris MD Bilirubin.direct [Mass/Vol] mg/dL Normal <0.31 [facility] Comment on above: Performed By: #### L IVP, LIP #### [address] [place], [place] [address]83 Warehouse Manager: Rito Morris MD Protein [Mass/Vol] 7.3 g/dL Normal 6.4-8.3 [facility] Comment on above: Performed By: #### L IVP, LIP #### [address] [place], [place] [address] Warehouse Manager: Rito Morris MD Globulin (S) [Mass/Vol] NOT REPORTED Normal 1.5-3.8 [facility] Comment on above: Performed By: #### L IVP, LIP #### [address] [place], [place] [id number] Warehouse Manager: Rito Morris MD PTon 04-28-2019 INR Coag (PPP) [Relative time] 1.1 {INR} Normal 0.9-1.2 [facility] Comment on above: Performed By: #### T ROPI, CDP, PTT, PT, BNP, BMP #### [address] [place] [id number] Warehouse Manager: Rito Morris MD PT Coag (PPP) [Time] 10.8 s Normal 9.7-12.2 [facility] Comment on above: Performed By: #### T ROPI, CDP, PTT, PT, BNP, BMP #### [facility] [address] [place] [id number] Warehouse Manager: Rito Morris MD Troponinon 04-28-2019 Troponin I.cardiac [Mass/Vol] Normal [facility] Comment on above: Result Comment: Refe rence [...] ROPI, CDP, PTT, PT, BNP, BMP #### [facility] [address] [place], [facility] Warehouse Manager: Rito Morris MD Troponin I.cardiac [Mass/Vol] ng/mL Normal <0.03 [facility] Comment on above: Result Comment: Trop onin T results cannot be compared to Troponin-I results. Performed By: #### T ROPI, CDP, PTT, PT, BNP, BMP #### [facility] [address] [place], [facility] Warehouse Manager: Rito Morris MD Troponin I.cardiac [Mass/Vol] NOT REPORTED Normal 0-22 [facility] Comment on above: Performed By: #### T ROPI, CDP, PTT, PT, BNP, BMP #### [facility] [address] [place] [id number] Warehouse Manager: Rito Morris MD Urinalysis, Routineon 2018 Acetoacetic Acid,Ur TRACE Abnormal NEG [facility] Comment on above: Performed By: #### U MICAO, UA #### [facility] [address] [place], [place] [address]859483 Warehouse Manager: Rito Morris MD Bilirubin, SemiQt,Ur Negative Normal [facility] Comment on above: Performed By: #### U MICAO, UA #### [facility] [address] [place], [place] 4397183 Warehouse Manager: Rito Morris MD Color (U) YELLOW Normal YEL [facility] Comment on above: Performed By: #### U MICAO, UA #### [facility] [address] [place], [place] [address]83 Warehouse Manager: Rito Morris MD Glucose Ql (U) Negative Normal [facility] Comment on above: Performed By: #### U MICAO, UA #### [facility] [address] [place], [place] [id number] Warehouse Manager: Rito Morris MD Hemoglobin, Ur Negative Normal [facility] Comment on above: Performed By: #### U MICAO, UA #### [facility] [address] [place], [place] [id number] Warehouse Manager: Rito Morris MD Leukocyte esterase Test strip Ql (U) Negative Normal [facility] Comment on above: Performed By: #### U MICAO, UA #### [facility] [address] [place], [place] [address]83 Warehouse Manager: Rito Morris MD Nitrite,Ur Negative Normal [facility] Comment on above: Performed By: #### U MICAO, UA #### [facility] [address] [place] [address] Warehouse Manager: Rito Morris MD pH (U) 5.5 [pH] Normal 5.0-9.0 [facility] Comment on above: Performed By: #### U MICAO, UA #### [facility] [address] [place] [address] Warehouse Manager: Rito Morris MD Protein Ql (U) Negative Normal NEG [facility] Comment on above: Performed By: #### U MICAO, UA #### [facility] [address] [place], [place] [id number] Warehouse Manager: Rito Morris MD Specific gravity (U) [Rel density] >1.030 High 1.010-1.02 0 [facility] Comment on above: Performed By: #### U MICAO, UA #### [facility] [address] [place] [address] Warehouse Manager: Rito Morris MD Turbidity CLEAR Normal CLEAR [facility] Comment on above: Performed By: #### U MICAO, UA #### [facility] [address] [place], [place] 2055483 Warehouse Manager: Rito Morris MD Urobilinogen,Ur Normal Normal NORM [facility] Comment on above: Performed By: #### U MICAO, UA #### [facility] [address] [place] [address] Warehouse Manager: Rito Morris MD Comment NOT REPORTED Normal [facility] Comment on above: Performed By: #### U MICAO, UA #### [facility] [address] [place] [address] Warehouse Manager: Rito Morris MD Urinalysis,Microon 9 ----- Normal [facility] Comment on above: Performed By: #### U MICAO, UA #### [facility] [address] [place], [place] [address]83 Warehouse Manager: Rito Morris MD Amorphous sediment LM Ql (Urine sed) 1+ Abnormal NONE [facility] Comment on above: Performed By: #### U MICAO, UA #### [facility] [address] [place] [address] Warehouse Manager: Rito Morris MD Epithelial cells LM.HPF (Urine sed) [#/Area] 0 TO 2 Normal 0-5 [facility] Comment on above: Performed By: #### U MICAO, UA #### [facility] [address] [place] [address] Warehouse Manager: Rito Morris MD RBC (U) [#/Vol] None Normal 0-2 [facility] Comment on above: Performed By: #### U MICAO, UA #### [facility] [address] [place] [id number] Warehouse Manager: Rito Morris MD WBC (U) [#/Vol] 0 TO 2 Normal 0-[address] [place] [address] Comment on above: Performed By: #### U MICAO, UA #### [address] [place] [id number] Warehouse Manager: Rito Morris MD Bacteria LM.HPF (Urine sed) [#/Area] NOT REPORTED Normal [facility] Comment on above: Performed By: #### U MICAO, UA #### [address] [place] [address] Warehouse Manager: Rito Morris MD Casts LM.LPF (Urine sed) [#/Area] NOT REPORTED Normal [facility] Comment on above: Performed By: #### U MICAO, UA #### [address] [place] [id number] Warehouse Manager: Rito Morris MD Crystals LM Nom (Urine sed) NOT REPORTED Normal [facility] Comment on above: Performed By: #### U MICAO, UA #### [address] [place] [id number] Warehouse Manager: Rito Morris MD Epithelial, Renal NOT REPORTED Normal 0 [facility] Comment on above: Performed By: #### U MICAO, UA #### [facility] [address] [place] [address] Warehouse Manager: Rito Morris MD Mucus Strands NOT REPORTED Normal NONE [facility] Comment on above: Performed By: #### U MICAO, UA #### [facility] [address] [place], [place] [id number] Warehouse Manager: Rito Morris MD Other Observations NOT REPORTED Normal NREQ [facility] Comment on above: Performed By: #### U MICAO, UA #### [facility] [address] [place] [address] Warehouse Manager: Rito Morris MD Trichomonas NOT REPORTED Normal [facility] [facility] Comment on above: Performed By: #### U MICAO, UA #### [facility] [address] [place] [address] Warehouse Manager: Rito Morris MD Yeast LM Ql (Urine sed) NOT REPORTED Normal [facility] Comment on above: Performed By: #### U MICAO, UA #### [facility] [address] [place], [place] [id number] Warehouse Manager: Rito Morris MD XR CHEST PORTABLEon 04-28-20 XR CHEST PORTABLE EXAMINATION: ONE XRAY VIEW OF THE CHEST 04/28/2019 6:37 am COMPARISON: CT 04/28/2019 HISTORY: ORDERING SYSTEM PROVIDED HISTORY: chest pain TECHNOLOGIST PROVIDED HISTORY: chest pain FINDINGS: Hyperinflation of the lungs. No focal consolidation. No cardiomegaly. No pulmonary edema. IMPRESSION: No acute findings. Hyperinflation of the lungs can be seen with COPD. Interpreted by: Matthew Segal MD Signed by: Matthew Segal MD 04/28/19 Final result Normal [facility] Vital Signs Date Time Vital Sign Value Performing Clinician Facility 04-05-2025 10:55-0400 Body height 180.3 cm Brianna SOTO Work Phone: [facility] 04-05-2025 10:55-0400 Body mass index (BMI) [Ratio] 18.66 kg/m2 Brianna SOTO Work Phone: [facility] 04-05-2025 10:55-0400 Body weight 60.69 kg Brianna Hemmer PA Work Phone: [facility] 04-05-2025 10:55-0400 Diastolic blood pressure 74 mm[Hg] Brianna Hemmer PA Work Phone: [facility] 04-05-2025 10:55-0400 Heart rate 84 /min Brianna Hemmer PA Work Phone: [facility] 04-05-2025 10:55-0400 Respiratory rate 16 /min Brianna Hemmer PA Work Phone: [facility] 04-05-2025 10:55-0400 SaO2% (BldA) [Mass fraction] 96 % Brianna Hemmer PA Work Phone: [facility] 04-05-2025 10:55-0400 Systolic blood pressure 108 mm[Hg] Brianna Hemmer PA Work Phone: [facility] 03-22-2025 09:16-0400 Body height 180.3 cm Parth García MD Work Phone: [facility] 03-22-2025 09:16-0400 Body mass index (BMI) [Ratio] 18.41 kg/m2 Parth García MD Work Phone: [facility] 03-22-2025 09:16-0400 Body weight 59.88 kg Parth García MD Work Phone: [facility] 03-22-2025 09:16-0400 Diastolic blood pressure 70 mm[Hg] Parth García MD Work Phone: [facility] 03-22-2025 09:16-0400 Heart rate 77 /min Parth García MD Work Phone: [facility] 03-22-2025 09:16-0400 SaO2% (BldA) [Mass fraction] 97 % Parth García MD Work Phone: [facility] 03-22-2025 09:16-0400 Systolic blood pressure 130 mm[Hg] Parth García MD Work Phone: [facility] 03-05-2025 12:59-0400 Body height 177.8 cm Parth García II Work Phone: [facility] 03-05-2025 12:59-0400 Body mass index (BMI) [Ratio] 19.8 kg/m2 Parth García II Work Phone: [facility] 03-05-2025 12:59-0400 Body weight 62.59 kg Parth García II Work Phone: [facility] 03-05-2025 12:59-0400 Diastolic blood pressure 68 mm[Hg] Parth García II Work Phone: [facility] 03-05-2025 12:59-0400 Heart rate 90 /min Parth García II Work Phone: [facility] 03-05-2025 12:59-0400 Systolic blood pressure 131 mm[Hg] Parth García II Work Phone: [facility] 02-22-2025 13:18-0400 Diastolic blood pressure 73 mm[Hg] Chair [place] Work Phone: [facility] 02-22-2025 13:18-0400 Heart rate 75 /min Chair Lin Work Phone: [facility] 02-22-2025 13:18-0400 Respiratory rate 16 /min Chair [place] Work Phone: [facility] 02-22-2025 13:18-0400 SaO2% (BldA) [Mass fraction] 99 % Chair [place] Work Phone: [facility] 02-22-2025 13:18-0400 Systolic blood pressure 113 mm[Hg] Chair [place] Work Phone: [facility] 02-01-2025 13:01-0400 Body height 175.4 cm Darwin Quinteros MD Work Phone: [facility] 02-01-2025 13:01-0400 Body mass index (BMI) [Ratio] 19.93 kg/m2 Darwin Quinteros MD Work Phone: [facility] 02-01-2025 13:01-0400 Body temperature 97.3 [degF] Darwin Quinteros MD Work Phone: [facility] 02-01-2025 13:01-0400 Body weight 61.3 kg Darwin Quinteros MD Work Phone: [facility] 02-01-2025 13:01-0400 Diastolic blood pressure 79 mm[Hg] Darwin Quinteros MD Work Phone: [facility] 02-01-2025 13:01-0400 Heart rate 57 /min Darwin Quinteros MD Work Phone: [facility] 02-01-2025 13:01-0400 Respiratory rate 16 /min Darwin Quinteros MD Work Phone: [facility] 02-01-2025 13:01-0400 SaO2% (BldA) [Mass fraction] 99 % Darwin Quinteros MD Work Phone: [facility] 02-01-2025 13:01-0400 Systolic blood pressure 124 mm[Hg] Darwin Quinteros MD Work Phone: [facility] 01-14-2025 11:40-0400 Diastolic blood pressure 77 mm[Hg] Parth García II Work Phone: [facility] 01-14-2025 11:40-0400 Heart rate 75 /min Parth García II Work Phone: [facility] 01-14-2025 11:40-0400 Respiratory rate 18 /min Parth García II Work Phone: [facility] 01-14-2025 11:40-0400 SaO2% (BldA) [Mass fraction] 97 % Parth García II Work Phone: [facility] 01-14-2025 11:40-0400 Systolic blood pressure 115 mm[Hg] Parth García II Work Phone: [facility] 01-14-2025 09:46-0400 Body height 177.8 cm Parth García II Work Phone: [facility] 01-14-2025 09:46-0400 Body weight 61.23 kg Parth García II Work Phone: [facility] 12-31-2024 09:10-0400 Body height 177.8 cm [facility] 12-31-2024 09:10-0400 Body mass index (BMI) [Ratio] 19.1 kg/m2 [facility] 12-31-2024 09:10-0400 Body weight 60.32 kg [facility] 12-31-2024 09:10-0400 Diastolic blood pressure 79 mm[Hg] [facility] 12-31-2024 09:10-0400 Heart rate 76 /min [facility] 12-31-2024 09:10-0400 Systolic blood pressure 121 mm[Hg] [facility] 11-08-2024 08:40-0500 Body temperature 97.5 [degF] Chair [place] Work Phone: [facility] 11-08-2024 08:40-0500 Diastolic blood pressure 88 mm[Hg] Chair [place] Work Phone: [facility] 11-08-2024 08:40-0500 Heart rate 80 /min Chair Lin Work Phone: [facility] 11-08-2024 08:40-0500 Respiratory rate 16 /min Chair [place] Work Phone: [facility] 11-08-2024 08:40-0500 SaO2% (BldA) [Mass fraction] 99 % Chair [place] Work Phone: [facility] 11-08-2024 08:40-0500 Systolic blood pressure 132 mm[Hg] Chair Lin Work Phone: [facility] 11-02-2024 13:14-0500 Body temperature 97.81 [degF] Chair [place] Work Phone: [facility] 11-02-2024 13:14-0500 Diastolic blood pressure 81 mm[Hg] Chair Lin Work Phone: [facility] 11-02-2024 13:14-0500 Heart rate 84 /min Chair [place] Work Phone: [facility] 11-02-2024 13:14-0500 Respiratory rate 16 /min Chair [place] Work Phone: [facility] 11-02-2024 13:14-0500 SaO2% (BldA) [Mass fraction] 99 % Chair Lin Work Phone: [facility] 11-02-2024 13:14-0500 Systolic blood pressure 128 mm[Hg] Chair [place] Work Phone: [facility] 10-26-2024 13:19-0500 Body temperature 97.9 [degF] Chair [place] Work Phone: [facility] 10-26-2024 13:19-0500 Diastolic blood pressure 79 mm[Hg] Chair Lin Work Phone: [facility] 10-26-2024 13:19-0500 Heart rate 78 /min Chair [place] Work Phone: [facility] 10-26-2024 13:19-0500 Respiratory rate 16 /min Chair [place] Work Phone: [facility] 10-26-2024 13:19-0500 SaO2% (BldA) [Mass fraction] 98 % Chair Lin Work Phone: [facility] 10-26-2024 13:19-0500 Systolic blood pressure 128 mm[Hg] Chair Lin Work Phone: [facility] 10-26-2024 12:49-0500 Body mass index (BMI) [Ratio] 19.8 kg/m2 Darwin Vennepureddy MD Work Phone: [facility] 10-26-2024 12:49-0500 Body temperature 97.59 [degF] Darwin Quinteros MD Work Phone: [facility] 10-26-2024 12:49-0500 Body weight 60.9 kg Darwin Quinteros MD Work Phone: [facility] 10-26-2024 12:49-0500 Diastolic blood pressure 89 mm[Hg] Darwin Quinteros MD Work Phone: [facility] 10-26-2024 12:49-0500 Heart rate 79 /min Darwin Quinteros MD Work Phone: [facility] 10-26-2024 12:49-0500 Respiratory rate 16 /min Darwin Quinteros MD Work Phone: [facility] 10-26-2024 12:49-0500 SaO2% (BldA) [Mass fraction] 100 % Darwin Quinteros MD Work Phone: [facility] 10-26-2024 12:49-0500 Systolic blood pressure 139 mm[Hg] Darwin Quinteros MD Work Phone: [facility] 10-19-2024 15:56-0500 Diastolic blood pressure 90 mm[Hg] Darwin Quinteros MD Work Phone: [facility] Comment on above: recheck 10-19-2024 15:56-0500 Systolic blood pressure 153 mm[Hg] Darwin Quinteros MD Work Phone: [facility] Comment on above: recheck 10-19-2024 15:55-0500 Body height 175.4 cm Darwin Quinteros MD Work Phone: [facility] Comment on above: Verified 2-shoes on 10-19-2024 15:55-0500 Body mass index (BMI) [Ratio] 19.89 kg/m2 Darwin Quinteros MD Work Phone: [facility] 10-19-2024 15:55-0500 Body temperature 97.5 [degF] Darwin Quinteros MD Work Phone: [facility] 10-19-2024 15:55-0500 Body weight 61.2 kg Darwin Quinteros MD Work Phone: [facility] 10-19-2024 15:55-0500 Heart rate 99 /min Dariwn Quinteros MD Work Phone: [facility] 10-19-2024 15:55-0500 Respiratory rate 16 /min Darwin Quinteros MD Work Phone: [facility] 10-19-2024 15:55-0500 SaO2% (BldA) [Mass fraction] 99 % Darwin Quinteros MD Work Phone: [facility] 09-17-2024 08:52-0500 Blood Pressure Location Jarad VALDIVIA [facility] 09-17-2024 08:52-0500 Body temperature 98.6 [degF] Jarad VALDIVIA [facility] 09-17-2024 08:52-0500 Diastolic blood pressure 84 mm[Hg] Jarad VALDIVIA [facility] 09-17-2024 08:52-0500 Heart rate 90 /min Jarad VALDIVIA [facility] 09-17-2024 08:52-0500 Respiratory rate 18 /min Jarad VALDIVIA [facility] 09-17-2024 08:52-0500 Systolic blood pressure 136 mm[Hg] Jarad VALDIVIA [facility] 05-11-2024 10:45-0400 Blood Pressure Location ALTAGRACIA BRANDO [facility] 05-11-2024 10:45-0400 Diastolic blood pressure 84 mm[Hg] ALTAGRACIA BRANDO [facility] 05-11-2024 10:45-0400 Heart rate 74 /min ALTAGRACIA BRANDO [facility] 05-11-2024 10:45-0400 Systolic blood pressure 128 mm[Hg] ALTAGRACIA BRANDO [facility] 04-27-2024 10:42-0400 Blood Pressure Location Daphne Orzech [facility] 04-27-2024 10:42-0400 Diastolic blood pressure 72 mm[Hg] Daphne Orzech [facility] 04-27-2024 10:42-0400 Heart rate 78 /min Daphne Orzech [facility] 04-27-2024 10:42-0400 Systolic blood pressure 116 mm[Hg] Daphne Orzech [facility] 03-16-2024 08:39-0400 Blood Pressure Location Jarad VALDIVIA [facility] 03-16-2024 08:39-0400 Diastolic blood pressure 76 mm[Hg] Jarad VALDIVIA [facility] 03-16-2024 08:39-0400 Heart rate 80 /min Jarad VALDIVIA [facility] 03-16-2024 08:39-0400 Systolic blood pressure 128 mm[Hg] Jarad VALDIVIA [facility] 02-03-2024 08:08-0400 Blood Pressure Location Jarad VALDIVIA [facility] 02-03-2024 08:08-0400 Diastolic blood pressure 86 mm[Hg] Jarad VALDIVIA [facility] 02-03-2024 08:08-0400 Heart rate 88 /min Jarad VALDIVIA [facility] 02-03-2024 08:08-0400 Systolic blood pressure 126 mm[Hg] Jarad VALDIVIA [facility] 05-15-2023 10:35-0400 Body height 177.8 cm Brandy Ruth Other [employer] Other 05-15-2023 10:35-0400 Body mass index (BMI) [Ratio] 19.37 kg/m2 Brandy Ruth Other [employer] Other 05-15-2023 10:35-0400 Body temperature 98.2 [degF] Brandy Ruth Other [employer] Other 05-15-2023 10:35-0400 Body weight 61.24 kg Brandy Ruth Other [employer] Other 05-15-2023 10:35-0400 Diastolic blood pressure 96 mm[Hg] Brandy Ruth Other [employer] Other 05-15-2023 10:35-0400 Respiratory rate 18 /min Brandy Lawrencemond Other [employer] [facility] [employer] Other 05-15-2023 10:35-0400 SaO2% (BldA) [Mass fraction] 97 % Brandy Ruth Other [employer] [facility] [employer] Other 05-15-2023 10:35-0400 Systolic blood pressure 121 mm[Hg] Brandy Flory Other [employer] [facility] [employer] Other 01-07-2023 08:53-0400 Blood Pressure Location Jarad VALDIVIA [facility] 01-07-2023 08:53-0400 Diastolic blood pressure 83 mm[Hg] Jarad VALDIVIA [facility] 01-07-2023 08:53-0400 Heart rate 90 /min Jarad VALDIVIA [facility] 01-07-2023 08:53-0400 Respiratory rate 16 /min Jarad VALDIVIA [facility] 01-07-2023 08:53-0400 Systolic blood pressure 111 mm[Hg] Jarad VALDIVIA [facility] 12-22-2022 07:38-0400 Blood Pressure Location Jarad VALDIVIA [facility] 12-22-2022 07:38-0400 Diastolic blood pressure 87 mm[Hg] Jarad VALDIVIA [facility] 12-22-2022 07:38-0400 Heart rate 75 /min Jarad VALDIVIA [facility] 12-22-2022 07:38-0400 Respiratory rate 16 /min Jarad VALDIVIA [facility] 12-22-2022 07:38-0400 Systolic blood pressure 132 mm[Hg] Jarad VALDIVIA [facility] 12-03-2022 09:53-0500 Body height 177.8 cm II Parth García Work Phone: [facility] 12-03-2022 09:53-0500 Body weight 61.23 kg II Parth García Work Phone: [facility] 05-16-2019 11:50-0400 BP Diastolic 66 mm[Hg] [place], [place] 05-16-2019 11:50-0400 BP Systolic 110 mm[Hg] [place] [employer] 05-16-2019 11:50-0400 Pulse (Heart Rate) 74 /min [place], [place] 05-16-2019 11:50-0400 Pulse Oximetry 98 % [place], [place] 05-16-2019 11:50-0400 Respiratory Rate 16 /min [facility] [place] 05-16-2019 11:15-0400 Body Temperature 97.2 [degF] [facility] [place] 05-16-2019 06:30-0400 BMI (Body Mass Index) 20.23 kg/m2 [place], [place] 05-16-2019 06:30-0400 Body weight 63.96 kg [place], [place] 05-16-2019 06:30-0400 Height 177.8 cm [place] Encounters Encounter Date Encounter Type Care Provider Facility Start: 04-26-2025 End: 04-26-2025 Bamboo flowsheet Matthew SOTO Work Phone: [facility] Start: 04-26-2025 End: 04-26-2025 Bamboo flowsheet Brendon Daniel PA Work Phone: [facility] Start: 04-26-2025 End: 04-26-2025 Office outpatient new 30 minutes Matthew Sanchez PA Work Phone: [facility] Comment on above: Acute pain of right knee (Primary Dx); Acute internal derangement of right knee Start: 04-26-2025 End: 04-26-2025 ambulatory MATTHEW SANCHEZ Not Available Start: 04-16-2025 End: 04-16-2025 Clinisync Result Encounter Generic External Data Provider [facility] External Department Unsolicited Start: 04-16-2025 End: 04-16-2025 Clinisync Result Encounter Generic External Data Provider [facility] External Department Unsolicited Start: 04-05-2025 End: 04-05-2025 Bamboo flowsheet Brianna Velasco PA Work Phone: [facility] Start: 04-05-2025 End: 04-06-2025 Bamboo flowsheet Brianna Velasco PA Work Phone: [facility] Start: 04-05-2025 End: 04-06-2025 Clinisync Result Encounter Generic External Data Provider [facility] External Department Unsolicited Start: 04-05-2025 End: 04-05-2025 Office outpatient visit 15 minutes Brianna SOTO Work Phone: [facility] Comment on above: Chronic pain of righ t knee (Primary Dx) Start: 04-05-2025 End: 04-05-2025 ambulatory BRIANNA VELASCO Not Available Start: 04-01-2025 End: 04-02-2025 Telephone encounter [facility] Provider Unallocated Work Phone: [facility] Comment on above: needs appt Start: 04-01-2025 End: 04-01-2025 Lab Drop off Jarad VALDIVIA [facility] Start: 04-01-2025 End: 04-01-2025 ambulatory Jarad R SHEA Facility:[facility] Start: 04-01-2025 End: 04-01-2025 Patient encounter procedure Jarad VALDIVIA [facility] Start: 03-22-2025 End: 03-22-2025 Bamboo flowsheet Parth García MD Work Phone: [facility] Start: 03-22-2025 End: 03-22-2025 Bamboo flowsheet Parth García MD Work Phone: [facility] Start: 03-22-2025 End: 03-22-2025 Clinisync Result Encounter Generic External Data Provider [facility] External Department Unsolicited Start: 03-22-2025 End: 03-22-2025 Office outpatient visit 15 minutes Parth García MD Work Phone: [facility] Comment on above: Pes anserinus bursit is of right knee (Primary Dx); Unspecified cirrhosis of liver (HCC); Malignant neoplasm of bladder, unspecified (HCC) Start: 03-22-2025 End: 03-22-2025 ambulatory PARTH GARCÍA Not Available Start: 03-05-2025 End: 03-05-2025 ambulatory Parth García II Work Phone: [facility] Work Phone: Start: 03-05-2025 End: 03-05-2025 Patient encounter procedure Parth García II Work Phone: [facility] Work Phone: Start: 02-22-2025 End: 02-25-2025 ambulatory Chair Theron Lindsey Work Phone: Hematology/Oncology Comment on above: Malignant neoplasm o f urinary bladder, unspecified site (HCC) (Primary Dx) Start: 02-15-2025 End: 02-15-2025 ambulatory DARWIN QUINTEROS Facility:[facility] Start: 02-08-2025 End: 02-22-2025 Telephone encounter Yaima Sinclair RN Hematology/Oncology Comment on above: Patient Update Start: 02-08-2025 End: 02-11-2025 ambulatory Chair Theron Lindsey Work Phone: Hematology/Oncology Comment on above: Malignant neoplasm o f urinary bladder, unspecified site (HCC) (Primary Dx) Start: 02-01-2025 End: 02-01-2025 Clinisync Result Encounter Generic External Data Provider [facility] External Department Unsolicited Start: 02-01-2025 End: 02-01-2025 Clinisync Result Encounter Generic External Data Provider [facility] External Department Unsolicited Start: 02-01-2025 End: 02-01-2025 Nursing evaluation of patient and report Ma Nurse Kai Clarke Work Phone: Hematology/Oncology Comment on above: Malignant neoplasm o f urinary bladder, unspecified site (HCC) (Primary Dx) Start: 02-01-2025 End: 02-01-2025 Office outpatient visit 25 minutes Darwin Quinteros MD Work Phone: Hematology/Oncology Comment on above: Malignant neoplasm o f urinary bladder, unspecified site (HCC) (Primary Dx) Start: 02-01-2025 End: 02-04-2025 ambulatory Chair Theron Lindsey Work Phone: Hematology/Oncology Comment on above: Malignant neoplasm o f urinary bladder, unspecified site (HCC) (Primary Dx) Start: 01-29-2025 End: 01-29-2025 Telephone encounter Darwin Quinteros MD Work Phone: Hematology/Oncology Comment on above: Lab Orders Start: 01-14-2025 Non-patient / Non-visit Parth García II Work Phone: [facility] Work Phone: Start: 01-14-2025 End: 01-14-2025 Admission to same day surgery center Parth García II Work Phone: [facility] Work Phone: Start: 01-14-2025 End: 01-14-2025 ambulatory Parth García II Work Phone: [facility] Work Phone: Start: 01-04-2025 End: 01-04-2025 Patient encounter procedure Parth García II Work Phone: [facility] [place] Work Phone: Start: 01-04-2025 End: 01-04-2025 ambulatory Parth García II Work Phone: [facility] Work Phone: Start: 12-31-2024 End: 12-31-2024 ambulatory Parth García II Work Phone: [facility] Work Phone: Start: 12-31-2024 End: 12-31-2024 Patient encounter procedure [facility] Work Phone: Start: 12-21-2024 End: 12-21-2024 Telephone encounter Suzanne Vera [facility] Work Phone: [facility] Start: 12-20-2024 End: 12-21-2024 Telephone encounter Nichole Grimes RN Work Phone: Hematology/Oncology Comment on above: Care Coordination (B CG update) Start: 12-19-2024 End: 12-20-2024 Lab Drop off Jarad VALDIVIA [facility] Start: 12-19-2024 End: 12-20-2024 ambulatory Jarad VALDIVIA Facility:[facility] Start: 11-08-2024 End: 11-08-2024 ambulatory DARWIN QUINTEROS Facility:[facility] Start: 11-08-2024 End: 11-08-2024 Nursing evaluation of patient and report Wolfgang Clarke Work Phone: Hematology/Oncology Comment on above: High risk medication use (Primary Dx) Start: 11-08-2024 End: 11-08-2024 ambulatory Chair 23 Lin Work Phone: Hematology/Oncology Comment on above: Malignant neoplasm o f urinary bladder, unspecified site (HCC) (Primary Dx) Start: 11-02-2024 End: 11-06-2024 Nursing evaluation of patient and report Wolfgang Quinn Tricia Work Phone: Hematology/Oncology Comment on above: High risk medication use (Primary Dx) Start: 11-02-2024 End: 11-02-2024 ambulatory Chair 23 Lin Work Phone: Hematology/Oncology Comment on above: Malignant neoplasm o f urinary bladder, unspecified site (HCC) (Primary Dx) Start: 10-31-2024 End: 10-31-2024 Telephone encounter Nichole Grimes RN Work Phone: Hematology/Oncology Comment on above: Care Coordination (C 1D1 treatment follow up call) Start: 10-26-2024 End: 10-26-2024 Clinisync Result Encounter Generic External Data Provider [facility] External Department Unsolicited Start: 10-26-2024 End: 10-26-2024 Clinisync Result Encounter Generic External Data Provider [facility] External Department Unsolicited Start: 10-26-2024 End: 10-26-2024 Nursing evaluation of patient and report Nichole Grimes RN Work Phone: Hematology/Oncology Comment on above: Malignant neoplasm o f urinary bladder neck (HCC) (Primary Dx) High risk medication use (Primary Dx) Start: 10-26-2024 End: 11-01-2024 Telephone encounter Darwin Quinteros MD Work Phone: [facility] Comment on above: Referral Information (GI) Start: 10-26-2024 End: 10-26-2024 Office outpatient visit 25 minutes Darwin Quinteros MD Work Phone: Hematology/Oncology Comment on above: Malignant neoplasm o f urinary bladder, unspecified site (HCC) (Primary Dx) Start: 10-26-2024 End: 10-26-2024 ambulatory Chair 23 Lin Work Phone: Hematology/Oncology Comment on above: Malignant neoplasm o f urinary bladder, unspecified site (HCC) (Primary Dx) Start: 10-19-2024 End: 10-19-2024 ambulatory DARWIN QUINTEROS Facility:[facility] Start: 10-19-2024 End: 10-19-2024 Office outpatient new 60 minutes Darwin Quinteros MD Work Phone: Hematology/Oncology Comment on above: Malignant neoplasm o f urinary bladder neck (HCC) (Primary Dx) Start: 10-19-2024 End: 10-23-2024 Telephone encounter Darwin Quinteros MD Work Phone: Hematology/Oncology Start: 10-17-2024 End: 10-17-2024 Chart abstracting Darwin Quinteros MD Work Phone: Hematology/Oncology Start: 09-17-2024 End: 09-17-2024 ambulatory Jarad VALDIVIA Facility:[facility] Start: 09-17-2024 End: 09-17-2024 Patient encounter procedure Jarad VALDIVIA [facility] Start: 09-04-2024 End: 09-04-2024 ambulatory Jarad Valdivia Facility:[facility] Start: 09-04-2024 End: 09-04-2024 ambulatory Jarad VALDIVIA Facility:CD:[id number] Start: 05-25-2024 End: 05-25-2024 ambulatory ALTAGRACIA MATOS Facility:[facility] Start: 05-25-2024 End: 05-25-2024 Patient encounter procedure ALTAGRACIA Pierce BRANDO [facility] Start: 05-18-2024 End: 05-18-2024 ambulatory ALTAGRACIA E BRANDO Facility:[facility] Start: 05-18-2024 End: 05-18-2024 Patient encounter procedure ALTAGRACIA E BRANDO [facility] Start: 05-11-2024 End: 05-11-2024 ambulatory ALTAGRACIA E BRANDO Facility:[facility] Start: 05-11-2024 End: 05-11-2024 Patient encounter procedure ALTAGRACIA E BRANDO [facility] [place] Start: 05-04-2024 End: 05-04-2024 ambulatory ALTAGRACIA E BRANDO Facility: [place] Start: 05-04-2024 End: 05-04-2024 Patient encounter procedure ALTAGRACIA E BRANDO [facility] Start: 04-27-2024 End: 04-27-2024 ambulatory Daphne X Orzech [facility] Start: 04-27-2024 End: 04-27-2024 Patient encounter procedure Daphne X Orzech [facility] [place] Start: 04-13-2024 End: 04-13-2024 ambulatory ALTAGRACIA E BRANDO Facility:[facility] Start: 04-13-2024 End: 04-13-2024 Patient encounter procedure ALTAGRACIA E BRANDO [facility] [place] Start: 04-06-2024 End: 04-06-2024 Patient encounter procedure II Parth García Work Phone: [facility] [place] Work Phone: Start: 04-06-2024 End: 04-06-2024 ambulatory II Parth García Work Phone: [facility] Work Phone: Start: 03-16-2024 End: 03-16-2024 Patient encounter procedure Jarad VALDIVIA [facility] Start: 03-01-2024 End: 03-01-2024 ambulatory Jarad Valdivia [facility] Work Phone: Start: 03-01-2024 End: 03-01-2024 Departed Referred MD Jarad Valdivia Work Phone: [facility] Start: 02-03-2024 End: 02-03-2024 Lab Drop off Jarad VALDIVIA [facility] Start: 02-03-2024 End: 02-03-2024 Patient encounter procedure Jarad VALDIVIA [facility] Start: 05-15-2023 End: 05-15-2023 ambulatory Brandy Ruth Other [employer] Other Start: 05-15-2023 Office outpatient ne w 10 minutes Brandy Ruth [facility] [place] Start: 02-11-2023 End: 02-11-[address] PARTH GARCÍA Facility:[facility] Start: 02-10-2023 End: 02-10-[address] PARTH GARCÍA Facility:[facility] Start: 02-03-2023 Encounter for other preprocedural examination DR JARAD VALDIVIA . [facility] Start: 02-03-2023 Encounter for preprocedural cardiovascular examination DR JARAD VALDIVIA . [facility] Start: 02-03-2023 Encounter for preprocedural laboratory examination DR JARAD VALDIVIA . [facility] Start: 01-28-2023 End: 01-29-[address] PARTH GARCÍA Facility:[facility] Start: 01-28-2023 End: 01-29-2023 Encounter for preprocedural laboratory examination DR PARTH GARCÍA Facility:[facility] Start: 01-07-2023 End: 01-07-2023 Patient encounter procedure Jarad VALDIVIA [facility] Start: 12-24-2022 End: 12-25-[address] PARTH GARCÍA Facility:[facility] Start: 12-22-2022 End: 12-22-2022 Patient encounter procedure Jarad R SHEA [facility] Start: 12-03-2022 End: 12-03-2022 ambulatory II Parth García Work Phone: [facility] Work Phone: Start: 12-03-2022 End: 12-03-2022 Patient encounter procedure II Parth García Work Phone: [facility] [place] Work Phone: Start: 11-15-2022 End: 11-16-[address] PARTH GARCÍA Facility:[facility] Start: 10-22-2022 End: 10-22-2022 Patient encounter procedure Jarad VALDIVIA [facility] [place] Start: 10-15-2022 End: 10-16-[address] PARTH GARCÍA Facility:[facility] Start: 05-16-2019 End: 05-16-2019 Patient encounter procedure BG HUMPHREY [facility] Start: 05-16-2019 End: 05-16-2019 Subsequent hospital visit by physician Bg Humphrey Work Phone: [facility] Comment on above: Calculus of gallblad octaivo with cholecystitis without biliary obstruction, unspecified cholecystitis acuity (Primary Dx) Start: 05-01-2019 Emergency department patient visit [facility] Start: 04-28-2019 End: 04-28-2019 Emergency department patient visit [facility] Procedures Date Procedure Procedure Detail Performing Clinician Start: 04-26-2025 Radiologic examination knee 1/2 views Matthew SOTO Work Phone: Start: 04-16-2025 ALL CBC WITH AUTO DIFF Generic External Data Provider Start: 04-05-2025 Arthrocentesis aspir&/inj major jt/bursa w/o us Brianna SOTO Work Phone: Start: 04-05-2025 ALL TESTOSTERONE Generic External Data Provider Start: 04-01-2025 Cystoscopy Jarad VALDIVIA Start: 03-22-2025 [facility] PSA, DIAGNOSTIC Generic External Data Provider Start: 02-01-2025 Urnls dip stick/tablet rgnt auto w/o microscopy [facility] Provider Start: 02-01-2025 [facility] CBC W AUTO DIFF BLD Generic External Data Provider Start: 01-14-2025 Esophagogastroduodenoscopy Parth García KERRI Work Phone: Start: 01-04-2025 Ultrasonography of liver Parth García KERRI Work Phone: Start: 12-19-2024 Cystoscopy Jarad VALDIVIA Start: 11-08-2024 Urnls dip stick/tablet rgnt auto w/o microscopy [facility] Provider Start: 11-02-2024 Urnls dip stick/tablet rgnt auto w/o microscopy [facility] Provider Start: 10-26-2024 [facility] CBC W AUTO DIFF BLD Generic External Data Provider Start: 03-01-2024 Transurethral resection of bladder neoplasm Jarad VALDIVIA Start: 02-03-2024 Flexible cystoscopy Jarad VALDIVIA Start: 12-22-2022 Transrectal needle biopsy of prostate Jarad VALDIVIA Start: 12-03-2022 MR prostate wo/w con II Parth García Work Phone: Start: 10-22-2022 Cystoscopy Jarad VALDIVIA Start: 10-15-[address] PARTH GARCÍA Comment on above: Performed By: #### PSAD #### [facility] [address] [place] [address] Dr. Yordan Holt Start: 10-23-2021 Cystoscopy Jarad VALDIVIA Start: 09-10-2020 Cystoscopy Jarad VALDIVIA Start: 09-25-2019 Cystoscopy Jarad VALDIVIA Start: 05-16-2019 ENCOURAGE DEEP BREATHING AND COUGHING PARTH GARCÍA Start: 05-16-2019 PLACE INTERMITTENT PNEUMATIC COMPRESSION DEVICE PARTH GARCÍA Start: 05-16-2019 AMBULATE PATIENT PARTH GARCÍA Start: 05-16-2019 DIET GENERAL PARTH GARCÍA Start: 05-16-2019 FULL CODE PARTH GARCÍA Start: 05-16-2019 INITIATE OXYGEN THERAPY PROTOCOL PATRH GARCÍA Start: 05-16-2019 NOTIFY PHYSICIAN (SPECIFY) PARTH GARCÍA Start: 05-16-2019 TOBACCO CESSATION EDUCATION PARTH GARCÍA Start: 05-16-2019 VITAL SIGNS PARTH GARCÍA Start: 05-16-2019 WOUND CARE PARTH GARCÍA Start: 05-16-2019 Level iv surg pathology gross&microscopic exam PARTH GARCÍA Start: 05-16-2019 INITIATE OXYGEN THERAPY PROTOCOL PARTH GARCÍA Start: 05-16-2019 BEDREST PARTH GARCÍA Start: 05-16-2019 NOTIFY PHYSICIAN (SPECIFY) PARTH GARCÍA Start: 05-16-2019 NURSING COMMUNICATION PARTH GARCÍA Start: 05-16-2019 VITAL SIGNS PARTH GARCÍA Start: 05-16-2019 Gluc bld gluc mntr dev cleared fda spec home use PARTH GARCÍA Start: 05-16-2019 MEASURE HEIGHT AND LENGTH PARTH GARCÍA Start: 05-16-2019 MEASURE WEIGHT PARTH GARCÍA Start: 05-16-2019 NURSING COMMUNICATION PARTH GARCÍA Start: 05-16-2019 PLACE INTERMITTENT PNEUMATIC COMPRESSION DEVICE PARTH GARCÍA Start: 05-16-2019 Prothrombin time PARTH GARCÍA Start: 05-16-2019 Urine test visual color cmprsn meths PARTH GARCÍA Start: 05-16-2019 INITIATE OXYGEN THERAPY PROTOCOL PARTH GARCÍA Start: 05-16-2019 INSERT PERIPHERAL IV PARTH GARCÍA Start: 05-16-2019 NOTIFY PHYSICIAN (SPECIFY) PARTHLUIS GARCÍA Start: 05-16-2019 VERIFY INFORMED CONSENT PARTH GARCÍA Start: 05-16-2019 VITAL SIGNS PARTH GARCÍA Start: 05-01-2019 Us abdominal real time w/image limited PARTH GARCÍA Start: 05-01-2019 Assay of lactate PARTH GARCÍA Start: 05-01-2019 Assay of lipase PARTH GARCÍA Start: 05-01-2019 Assay of troponin quantitative PARTH BE RRY Start: 05-01-2019 Basic metabolic panel calcium total PARTH GARCÍA Start: 05-01-2019 Blood count complete auto&auto difrntl wbc PARTH GARCÍA Start: 05-01-2019 Hepatic function panel PARTH AGRCÍA Start: 05-01-2019 Ecg routine ecg w/least 12 lds w/i&r PARTH GARCÍA Start: 04-28-2019 Ct thorax w/contrast material PARTH TAVERA RY Start: 04-28-2019 Urinalysis microscopic only PARTH GARCÍA Start: 04-28-2019 Urnls dip stick/tablet rgnt auto w/o microscopy PARTH GARCÍA Start: 04-28-2019 Radiologic exam chest single view PARTH GARCÍA Start: 04-28-2019 Assay of lipase PARTH GARCÍA Start: 04-28-2019 Hepatic function panel PARTH GARCÍA Start: 04-28-2019 Assay of troponin quantitative PARTH LOMELI RRY Start: 04-28-2019 Basic metabolic panel calcium total PARTH GARCÍA Start: 04-28-2019 Blood count complete auto&auto difrntl wbc PARTH GARCÍA Start: 04-28-2019 BRAIN NATRIURETIC PEPTIDE PARTH GARCÍA Start: 04-28-2019 Prothrombin time PARTH GARCÍA Start: 04-28-2019 Thromboplastin time partial plasma/whole blood PARTH GARCÍA Start: 04-28-2019 Ecg routine ecg w/least 12 lds w/i&r PARTH GARCÍA Start: 04-28-2019 INSERT PERIPHERAL IV PARTH GARCÍA Start: 04-28-2019 TELEMETRY MONITORING PARTH GARCÍA Start: 04-28-2019 VITAL SIGNS PARTH GARCÍA Start: 09-05-2018 Cystoscopy Jarad VALDIVIA Comment on above: 05/05/2012, 09/11/2012, 12/08/2012, 07/28, 11/16/2013, 02/22/2014, 05/17/2014, 05/26/2016, 06/17/2017, 09/05/2018 Start: 08-19-2015 Transrectal biopsy of prostate using ultrasound guidance Jarad VALDIVIA Start: 05-30-2012 Cystoscopic removal of ureteric stent Jarad VALDIVIA Start: 05-18-2012 Cystoscopy and transurethral resection of bladder tumor Jarad VALDIVIA Comment on above: Cystoscopy, rt rg, right ureter, TURBT a nd right stent placement History of cholecystectomy Brendon MATOS History of tonsillectomy ADAMARIS MATOS Plan of Treatment Date Care Activity Detail Author Start: 02-16-2028 Diabetes Screening Diabetes Screen[facility] Start: 02-02-2028 Diabetes Screening [facility] Start: 10-26-2027 Diabetes Screening Diabetes Screenin [facility] Start: 11-28-2025 Screening for malign ant neoplasm of colon [facility] Start: 08-16-2025 End: 08-16-2025 Follow-up encounter 08/16/2025 1:00 PM [facility] Infusion Center Hematology/Oncology [address] [place] [address] 6 month follow up with chemotx Maintenence BCG x3 Hematology/Oncology Comment on above: 6 month follow up wi th chemotx Maintenence BCG x3 Start: 08-09-2025 End: 08-09-2025 Follow-up encounter 08/09/2025 1:00 PM [facility] Infusion Center Hematology/Oncology [address] [place] [address] 6 month follow up with chemotx Maintenence BCG x3 Hematology/Oncology Comment on above: 6 month follow up wi th chemotx Maintenence BCG x3 Start: 08-02-2025 End: 08-02-2025 Follow-up encounter Hematology/Oncology Comment on above: 6 month follow up wi th chemotx Maintenence BCG x3 Start: 08-02-2025 End: 08-02-2025 Patient encounter procedure 08/02/2025 12:45 PM EST Office Visit [facility] [address] [place] [address] [place] [address] 6 month follow up with chemotx Maintenence BCG x3 [facility] Comment on above: 6 month follow up wi th chemotx Maintenence BCG x3 Start: 05-27-2025 Influenza vaccination [facility] Start: 05-17-2025 End: 05-17-2025 Patient encounter procedure 05/17/2025 9:45 AM EDT Office Visit [facility] [address] [place] [address] Jr. Santiago White DO [address] [facility] [address] [place] [address] [facility] Start: 04-26-2025 End: 04-26-2026 MR Knee - right WO contrast MR knee right wo IV contrast Imaging Routine Acute internal derangement of right knee Expected: 04/26/2025 (Approximate), Expires: 04/26/[address] [facility] Work Phone: Comment on above: Expected: 04/26/2025 (Approximate), Expires: 04/26/2026 Start: 04-26-2025 End: 04-26-2025 Patient encounter procedure 04/26/2025 10:30 AM EDT Office Visit [facility] [address] [facility] [address] Matthew Sanchez PA [address] [place] [address] Acute pain of right knee (Primary Dx); Chronic pain of right knee [facility] Comment on above: Acute pain of right knee (Primary Dx); Chronic pain of right knee Start: 04-05-2025 End: 04-05-2025 Patient encounter procedure [facility] Comment on above: Arrived Start: 03-22-2025 End: 03-22-2025 Patient encounter procedure 03/22/2025 9:15 AM EDT Office Visit [facility] [address] [facility] [address] [place] [id number] Parth García MD [address] [facility] [address] [place] [address] Arrived [facility] Comment on above: Arrived Start: 02-22-2025 End: 02-22-2025 ambulatory 02/22/2025 1:00 PM EDT Infusion Center Hematology/Oncology [address] [place] [address] Maintenence BCG x3 Hematology/Oncology Comment on above: Maintenence BCG x3 Start: 02-15-2025 End: 02-15-2025 Nursing evaluation of patient and report 02/15/2025 2:00 PM EDT Nurse Visit Hematology/Oncology [address] [place] [address] Wolfgang Clarke Nurse Kai [address] [place] [address] Rule out UTI Hematology/Oncology Comment on above: Rule out UTI Start: 02-15-2025 End: 02-15-2025 ambulatory Hematology/Oncology Comment on above: Maintenence BCG x3 Start: 02-15-2025 End: 02-15-2025 Patient encounter procedure 02/15/2025 12:45 PM EDT Office Visit [facility] [address] [place] [address] Maintenence BCG x3 [facility] Comment on above: Maintenence BCG x3 Start: 02-08-2025 End: 02-08-2025 Nursing evaluation of patient and report 02/08/2025 2:00 PM EDT Nurse Visit Hematology/Oncology [address] [place] [address] Wolfgang Clarke Nurse Kai [address] [place] [address] Rule out UTI Hematology/Oncology Comment on above: Rule out UTI Start: 02-08-2025 End: 02-08-2025 ambulatory 02/08/2025 1:00 PM EDT Infusion Center Hematology/Oncology [address] [place] [address] Maintenence BCG x3 Hematology/Oncology Comment on above: Maintenence BCG x3 Start: 02-01-2025 End: 02-01-2025 Nursing evaluation of patient and report 02/01/2025 2:00 PM EDT Nurse Visit Hematology/Oncology [address] [place] [address] Wolfgang Clarke Nurse Kai [address] [place] [address] Rule out UTI Hematology/Oncology Comment on above: Rule out UTI Start: 02-01-2025 End: 02-01-2025 ambulatory Hematology/Oncology Comment on above: intravesical BCG Maintenence BCG x3 Start: 02-01-2025 End: 02-01-2025 Patient encounter procedure [facility] Comment on above: Chemo teach for intr avesical BCG - maintenece but new to us needs fri appts due to work schedule Start: 01-29-2025 End: 04-30-2025 CBC W Auto Differential panel - Blood COMPLETE BLOOD COUNT AND DIFFERENTIAL Lab Routine Malignant neoplasm of urinary bladder, unspecified site (HCC) Expected: 01/29/2025, Expires: 04/30/2025 [facility] Comment on above: Expected: 01/29/2025 , Expires: 04/30/2025 Start: 01-29-2025 End: 04-30-2025 Comprehensive metabolic 2000 panel - Serum or Plasma COMPREHENSIVE METABOLIC PANEL Lab Routine Malignant neoplasm of urinary bladder, unspecified site (HCC) Expected: 01/29/2025, Expires: 04/30/2025 [facility] Work Phone: Comment on above: Expected: 01/29/2025 , Expires: 04/30/2025 Start: 01-14-2025 [facility] Start: 12-31-2024 Hepatitis A virus Ab [Presence] in Serum by Immunoassay [facility] Start: 12-31-2024 Hepatitis B core antibody measurement [facility] Start: 12-31-2024 Hepatitis B virus surface Ab [Presence] in Serum [facility] Start: 12-31-2024 End: 12-31-2024 [facility] Start: 11-09-2024 End: 11-09-2024 ambulatory 11/09/2024 1:[address] [facility] Hematology/Oncology [address] [place] [address] maintenence BCG x3 Hematology/Oncology Comment on above: maintenence BCG x3 Start: 11-08-2024 End: 11-08-2024 Nursing evaluation of patient and report 11/08/2024 10:30 AM EST Nurse Visit Hematology/Oncology [address] [place] [address] Wolfgang Clarke Nurse Kai [address] [place] [address] [place] [address] Rule out UTI Hematology/Oncology Comment on above: Rule out UTI Start: 11-08-2024 End: 11-08-2024 ambulatory 11/08/2024 8:30 AM [facility] Infusion Center Hematology/Oncology [address] [place] [address] [place] [address] maintenence BCG x3 Hematology/Oncology Comment on above: maintenence BCG x3 Start: 11-02-2024 End: 11-02-2024 Nursing evaluation of patient and report 11/02/2024 2:00 PM EST Nurse Visit Hematology/Oncology [address] [place] [address] Wolfgang Clarke Nurse Kai [address] [place] [address] Rule out UTI ( needs UA order) Hematology/Oncology Comment on above: Rule out UTI ( needs UA order) Start: 11-02-2024 End: 11-02-2024 ambulatory 11/02/2024 1:00 PM [facility] Infusion Center Hematology/Oncology [address] [place] [address] [place] [address] maintenence BCG x3 Hematology/Oncology Comment on above: maintenence BCG x3 Start: 10-26-2024 End: 01-25-2025 CBC W Auto Differential panel - Blood COMPLETE BLOOD COUNT AND DIFFERENTIAL Lab Routine Malignant neoplasm of urinary bladder neck (HCC) Expected: 10/26/2024 (Approximate), Expires: 01/25/2025 [facility] Work Phone: Comment on above: Expected: 10/26/2024 (Approximate), Expires: 01/25/2025 Start: 10-26-2024 End: 01-25-2025 Comprehensive metabolic 2000 panel - Serum or Plasma COMPREHENSIVE METABOLIC PANEL Lab Routine Malignant neoplasm of urinary bladder neck (HCC) Expected: 10/26/2024 (Approximate), Expires: 01/25/2025 [facility] Comment on above: Expected: 10/26/2024 (Approximate), Expires: 01/25/2025 Start: 10-26-2024 End: 10-26-2024 Nursing evaluation of patient and report 10/26/2024 2:00 PM EST Nurse Visit Hematology/Oncology [address] [place] [address] [place] [address] Nichole Grimes, RN [address] [place] [address] intravesical BCG - maintenece but new to us Hematology/Oncology Comment on above: intravesical BCG - m aintenece but new to us Start: 10-26-2024 End: 10-26-2024 ambulatory Hematology/Oncology Comment on above: Chemo teach for intr avesical BCG - maintenece but new to us maintenence BCG x3 Start: 10-26-2024 End: 10-26-2024 Patient encounter procedure 10/26/2024 12:45 PM EST Office Visit [facility] [address] [place] [address] Chemo teach for intravesical BCG - maintenece but new to us [facility] Comment on above: Chemo teach for intr avesical BCG - maintenece but new to us Start: 10-19-2024 End: 10-19-2024 ambulatory 10/19/2024 4:00 PM EST Visit (SP) Office Hematology/Oncology [address] [place] [address] [place] [address] Darwin Quinteros MD [address] [address] Jarad Valdivia. Dx: Bladder CA needs BCG Tx x3 Hematology/Oncology Comment on above: Referred by Dr. Nely Valdivia. Dx: Bladder CA needs BCG Tx x3 Start: 09-04-2024 Prostate specific antigen measurement Prostate Cancer Screening Discussion [facility] Start: 05-27-2024 Covid-19 Vaccine ( season) Covid-19 Vaccine () [facility] Start: 05-27-2024 Influenza vaccination Influenza Vacc ine (#1) [facility] Start: 04-06-2024 MR prostate wo/w con MR prostate wo/ w con [facility] Start: 05-01-2022 Diabetes Screening Diabetes Screenin g [facility] Start: 05-27-2019 Influenza vaccination Flu vaccine (# 1) [place], [place] Start: 2015 Colon cancer screen colonoscopy Colon cancer screen colonoscopy [place], [place] Start: 2015 Pneumococcal Vaccine : 50+ (1 of 1 - PCV) Pneumococcal Vaccine: 50+ (1 of 1 - PCV) [facility] Start: 2015 Shingles Vaccine (1 of 2) Shingles Vaccine (1 of 2) [place], [place] Start: 2015 Shingrix Vaccine (1 of 2) Shingrix Vaccine (1 of 2) [facility] Start: 2010 Screening for malign ant neoplasm of colon [facility] Start: 2005 Lipid screen Lipid screen [place], [place] Start: 2000 Lipid panel Lipid Screening [facility] Start: 1984 DTaP/Tdap/Td vaccine (1 - Tdap) DTaP/Tdap/Td vaccine (1 - Tdap) [place], [place] Start: 1984 Urine microalbumin profile DTaP,Tdap,Td Vaccine (1 - Tdap) [facility] Start: 1983 Anxiety Screening Anxiety Screening [facility] Start: 1983 Depression Screening Depression Scre ening [facility] Start: 1983 Hepatitis C screening Hepatitis C Sc reening [facility] Start: 1983 HIV screening HIV Screening [facility] Start: 1980 HIV screen HIV screen [place], [place] Start: 1965 Hepatitis C screen Hepatitis C scree n [place], [place] Start: 1965 Screening for malign ant neoplasm of colon [facility] [id number]. patricia or marker [Mass/volume] in Serum or Plasma [facility] End: 05-16-2019 Blood glucose - POCT Blood glucose - POCT Point of Care Testing Routine One Time for 1 Occurrences starting 05/16/2019 until 05/16/2019 [place], [place] Comment on above: One Time for 1 Occur rences starting 05/16/2019 until 05/16/2019 Comprehensive metabo lic 2000 panel - Serum or Plasma [facility] Hepatic function panel [facility] Hepatitis B virus surface Ag [Presence] in Serum or Plasma by Immunoassay [facility] HFE gene mutations found [Identifier] in Blood or Tissue by Molecular genetics method Nominal [facility] Initiate Oxygen Ther apy Protocol Initiate Oxygen Therapy Protocol Respiratory Care Routine Daily until discontinued starting 05/16/2019 [place], [place] Comment on above: Daily until disconti nued starting 05/16/2019 Patient Education Hiatal hernia Gastritis Know your Meds [facility] Work Phone: Phase I & II - meter ed glucose Phase I & II - metered glucose Point of Care Testing Routine As Needed until discontinued starting 05/16/2019 [facility] [place] Comment on above: As Needed until disc ontinued starting 05/16/2019 End: 05-16-2019 , urine , urine Lab Routine One Time for 1 Occurrences starting 05/16/2019 until 05/16/2019 [facility] [place] Comment on above: One Time for 1 Occur rences starting 05/16/2019 until 05/16/2019 End: 05-16-2019 Protime-INR Protime-INR Lab Routine One Time for 1 Occurrences starting 05/16/2019 until 05/16/2019 [facility] [place] Comment on above: One Time for 1 Occur rences starting 05/16/2019 until 05/16/2019 Surgical Pathology Surgical Path ology Lab Routine ONE TIME for 1 Occurrences starting 05/16/2019 [place], [place] Comment on above: ONE TIME for 1 Occur rences starting 05/16/2019 UA DIP OB, URINE (POC) UA DIP OB , URINE (POC) Lab Routine Malignant neoplasm of urinary bladder, unspecified site (HCC) 1 Occurrences starting 11/08/2024 [facility] Comment on above: 1 Occurrences starti ng 11/08/2024 UA DIP, URINE (POC) UA DIP, URIN E (POC) Lab Routine Malignant neoplasm of urinary bladder, unspecified site (HCC) Ordered: 10/26/2024 [facility] Work Phone: Comment on above: Ordered: 10/26/2024 UA DIP, URINE (POC) UA DIP, URIN E (POC) Lab Routine Malignant neoplasm of urinary bladder, unspecified site (HCC) Ordered: 10/29/2024 [facility] Work Phone: Comment on above: Ordered: 10/29/2024 UA DIP, URINE (POC) UA DIP, URIN E (POC) Lab Routine Malignant neoplasm of urinary bladder, unspecified site (HCC) Ordered: 11/08/2024 [facility] Work Phone: Comment on above: Ordered: 11/08/2024 UA DIP, URINE (POC) UA DIP, URIN E (POC) Lab Routine Malignant neoplasm of urinary bladder, unspecified site (HCC) Ordered: 02/01/2025 [facility] Work Phone: Comment on above: Ordered: 02/01/2025 [facility] Immunizations Immunization Date Immunization Notes Care Provider Gaby wan 05-25-2024 bacillus calmette-carla vaccine ALTAGRACIA BRANDO [facility] 05-18-2024 bacillus calmette-carla vaccine ALTAGRACIA BRANDO [facility] 05-11-2024 bacillus calmette-carla vaccine ALTAGRACIA BRANDO [facility] 05-04-2024 bacillus calmette-carla vaccine ALTAGRACIA BRANDO [facility] 04-27-2024 bacillus calmette-carla vaccine Daphne Vidal [facility] 04-13-2024 bacillus calmette-carla vaccine ALTAGRACIA BRANDO [facility] Payers Date Payer Category Payer Self-pay [id number] 2022 Private Health Insurance [id number] 2019 Private Health Insurance AET[employer] AETNA NAP xxxxxxxxxx 2019-Present [phone] [id number] [place] [address] xxxxxxxxxx [id number] 1998 Managed Care O (unspecified) [employer] [id number] 5 1965 Unknown [id number] 2.840.1.170402.3.579 .2.173 1965 Unknown [id number] 2.840.1.205461.3.579 .2.173 1965 Unknown [id number] 2.16840.1.145087.3.579 .2.173 1965 Unknown [id number] 2.16.840.1.874462.3.579 .2.593 1965 Unknown [id number] 2.16840.1.489835.3.579 .2.593 1965 Unknown [id number] 2.16840.1.582639.3.579 .2.593 1965 Unknown [id number] 2.16.840.1.185313.3.579 .2.593 1965 Unknown [id number] 2.16.840.1.938122.3.579 .2.593 1965 Unknown [id number] 2.16.840.1.783306.3.579 .2.593 1965 Unknown [id number] 2.16.840.1.709708.3.579 .2.72 1965 Unknown [id number] 2.16.840.1.148198.3.579 .2.72 1965 Unknown [id number] 2.16.840.1.985742.3.579 .2.72 1965 Unknown [id number] 2.16.840.1.492370.3.579 .2.72 1965 Unknown [id number] 2.16.840.1.281844.3.579 .2.72 1965 Unknown [id number] 2.16.840.1.956314.3.579 .2.72 1965 Unknown [id number] 2.16.840.1.359753.3.579 .2.72 1965 Unknown [id number] 2.16.840.1.727768.3.579 .2.72 1965 Unknown [id number] 2.16.840.1.122956.3.579 .2.72 1965 Unknown [id number] 2.16.840.1.985820.3.579 .2.72 1965 Unknown [id number] 2.16.840.1.316657.3.579 .2.72 1965 Unknown [id number] 2.16.840.1.547312.3.579 .2.72 1965 Unknown [id number] 2.16.840.1.501065.3.579 .2.1259 1965 Unknown [id number] 2.16.840.1.856203.3.579 .2.1259 1965 Unknown [id number] 2.16.840.1.688708.3.579 .2.1259 1965 Unknown [id number] 2.16.840.1.683517.3.579 .2.1259 1959 Private Health Insurance [id number] Unknown [id number] 2.16.840.1.051371.3.579 .2.531 Unknown [id number] 2.16.840.1.433372.3.579 .2.531 Unknown [id number] 2.16.840.1.635153.3.579 .2.531 Unknown [id number] 2.16.840.1.755529.3.579 .2.531 Unknown [id number] 2.16.840.1.435212.3.579 .2.531 Unknown [id number] 2.16.840.1.297403.3.579 .2.531 Social History Date Type Detail Facility Start: 05-16-2019 End: 03-22-2025 Tobacco smoking status NHIS Former smoker [facility] Start: 09-26-2006 End: 03-22-2005 History of tobacco use Cigarette Smoker [place] Start: 05-16-2019 End: 03-21-2025 Alcohol intake Yes [facility] Start: 04-28-2019 Alcohol Comment social [place], [place] Start: 1965 Sex Assigned At Not on file [place] Tobacco smoking status [facility] Start: 1965 Sex Assigned At Male [facility] Tobacco smoking status Never [facility] Start: 09-26-2006 End: 03-22-2005 History of tobacco use Current smoker [facility] Start: 10-17-2024 Tobacco use and exposure User of smokeless tobacco [facility] Start: 10-17-2024 End: 10-19-2024 Alcoholic beverage intake Lifetime non-drinker (finding) [facility] Start: 10-17-2024 End: 03-21-2025 History of Social function [facility] smoking consumption unknown [facility] Start: 08-20-2015 End: 03-05-2025 Sex Male (finding) [facility] How often do you nee d to have someone help you when you read instructions, pamphlets, or other written material from your doctor or pharmacy [SILS] Never [facility] Within the last year , have you been afraid of your partner or ex-partner? No [facility] Do you belong to any clubs or organizations such as gnosticist groups, unions, [employer] or athletic groups, or school groups? Yes [facility] Are you now , , , , never or living with a partner? [facility] How hard is it for y ou to pay for the very basics like food, housing, medical care, and heating Not very hard [facility] Do you feel stress - tense, restless, nervous, or anxious, or unable to sleep at night because your mind is troubled all the time - these days [OSQ] To some extent [facility] (I/We) worried wheth er (my/our) food would run out before (I/we) got money to buy more. Never true [facility] Start: 03-22-2025 Tobacco use and exposure Smokeless tobacco non-user [facility] Goals Date Patient Goal Desired Activity /State Functional Status Date Assessment Result Facility 04-05-2025 Patient Health [facility] ionnaire 2 item (PHQ-2) [Reported] [facility] 03-22-2025 Patient Health [facility] ionnaire 2 item (PHQ-2) [Reported] [facility] 09-17-2024 Functional Status N/A [facility] 05-18-2024 Functional Status N/A [facility] 05-11-2024 Functional Status N/A [facility] 05-04-2024 Functional Status N/A [facility] 04-27-2024 Functional Status N/A [facility] 03-16-2024 Functional Status N/A [facility] 02-03-2024 Functional Status N/A [facility] 01-07-2023 Functional Status N/A [facility] 12-22-2022 Functional Status N/A [facility] Clinical Notes 05-15-2013 to 04-26-2025 CHARLES Hernandez - 04/26/2025 10:30 AM CHARLES Torres - 04/05/2025 11:00 AM EDTTelephone Encounter - Kasandra Luis - 04/01/2025 2:45 PM EDTParth García MD - 03/22/2025 9:15 AM EDT Note Date & Type Note Facility 04-26-2025 History of Present illness Narrative Images from the original note were not included. Orthopedic Office note: NAME: Venita Rosenberg : 1965 NEW PT WITH RT KNEE PAIN ~2MO- DENIES INJURY - [place] BRIANNA VELASCO; KENALOG INJ XRAY RT KNEE 04/26/25 EPIC [...] Instructions: MRI RT KNEE WITHOUT CONTRAST @ [facility]; PLEASE CALL PT TO SCHEDULE Reason [...] requiring urgent evaluation. Visit was preformed using [employer]-assisted living executive director speech recognition. documented in this encounter [facility] 04-05-2025 History of Present illness Narrative Associated Order(s): Arthrocentesis Images from the original note were not included. Subjective Patient ID: Venita Rosenberg is a 59 y.o. male who presents for knee pain. Venita is present today for follow up knee pain. He was seen on 03/22/25 Dx. Pes Anserinus bursitis of right knee, Rx'd Voltaren gel OTC and he has been using that, he also is taking Ibuprofen 800 mg in the am 400 mg, and 400 mg at HS, has a brace on it. He did fall on it and that is what aggravagted it. He would like a steroid injection if possible. Over the past 2 weeks, how often have you been bothered by any of the following problems? Little interest or pleasure in doing things: Not at all Feeling down, depressed, or hopeless: Not at all Patient Health Questionnaire-2 Score: 0 Current Outpatient Medications on File Prior to Visit Medication Sig Dispense Refill alfuzosin ER (Uroxatral) 10 MG 24 hr tablet Take 10 mg by mouth Daily No current facility-administered medications on file prior to visit. I have reviewed and reconciled the history and medication list with the patient today. No Known Allergies Social History Tobacco Use Smoking status: Former Current packs/day: 1.00 Average packs/day: 1 pack/day for 18.5 years (18.5 ttl pk-yrs) Types: Cigarettes Start date: 2006 Quit date: 03/22/2005 Smokeless tobacco: Never Family History Problem Relation Name Age of Onset Cancer Mother Cancer Father Past Medical History: Diagnosis Date Bladder cancer (HCC) 10/19/2024 Cholecystitis with cholelithiasis 05/16/2019 Prostate nodule 04/05/2025 Past Surgical History: Procedure Laterality Date CHOLECYSTECTOMY CYSTOSCOPY PROSTATE BIOPSY TONSILLECTOMY Visit Vitals BP 108/74 Pulse 84 Resp 16 Ht 5' 11 Wt 133 lb 12.8 oz SpO2 96% BMI 18.66 kg/m Smoking Status Former BSA 1.74 m Review of Systems Constitutional: Negative for chills, fatigue and fever. Respiratory: Negative for cough, shortness of breath and wheezing. Cardiovascular: Negative for chest pain, palpitations and leg swelling. Gastrointestinal: Negative for abdominal pain, constipation, diarrhea, nausea and vomiting. Musculoskeletal: Positive for arthralgias. Skin: Negative for rash. Objective Physical Exam Constitutional: General: He is not in acute distress. Appearance: Normal appearance. HENT: Head: Normocephalic and atraumatic. Eyes: General: No scleral icterus. Cardiovascular: Rate and Rhythm: Normal rate and regular rhythm. Heart sounds: No murmur heard. Pulmonary: Effort: Pulmonary effort is normal. No respiratory distress. Breath sounds: Normal breath sounds. No wheezing, rhonchi or rales. Musculoskeletal: General: No swelling. Right knee: Effusion (Minimal), bony tenderness (medial femoral condyle) and crepitus present. No erythema or ecchymosis. Decreased range of motion (Limited at extremes). No LCL laxity, MCL laxity, ACL laxity or PCL laxity. Instability Tests: Anterior drawer test negative. Posterior drawer test negative. Skin: General: Skin is warm and dry. Neurological: General: No focal deficit present. Mental Status: He is alert and oriented to person, place, and time. Psychiatric: Mood and Affect: Mood normal. Behavior: Behavior normal. Arthrocentesis Date/Time: 04/05/2025 11:14 AM Performed by: [...] Procedure completion: Tolerated well, no immediate complications Assessment/Plan Diagnoses and all orders for this visit: Chronic pain of right knee - triamcinolone acetonide (Kenalog-40) injection 40 mg - Arthrocentesis Discussed treatment options with the patient. OTC treatments are no longer sufficiently effective. Potential risks and benefits of a knee injection were reviewed with the patient, including but not limited to, reaction to the medication, infection, failure to improve and possible worsening of symptoms. Patient voiced understanding, and chose to proceed with a knee injection. Advised pt that if there is not significant relief from the injection, a referral to Orthopedics for further evaluation would be warranted. Patient voiced understanding. Kenalog was injected into patient's knee. Pt tolerated this well and neurovascular status was intact following the injection. Post injection instructions were reviewed with patient. He can continue with knee wrap as needed. Reviewed s/s of infection. Patient is to contact the office with any concerns. Follow up if symptoms worsen or fail to improve. documented in this encounter [facility] 04-01-2025 Telephone encounter Note Patient was just seen and was told that if his knee does not feel better after a week or so to call back. The patient said it does not feel any better at all and wondered where he would like to go from here. [facility] 04-01-2025 Miscellaneous Notes Patient was just seen and was told that if his knee does not feel better after a week or so to call back. The patient said it does not feel any better at all and wondered where he would like to go from here. documented in this encounter [facility] 04-01-2025 Evaluation + Plan note Diagnostic Tests PendingTestosterone Level Total 04/01/25 [facility] 04-01-2025 Evaluation + Plan note Diagnostic Tests PendingUroVysion Fish and Urine Cyto ([facility]) 04/01/25 [facility] 04-01-2025 Hospital Discharge instructions Patient Education 04/01/2025 09:00:26 Prostate Cancer Screening Prostate Cancer Screening Prostate cancer screening is testing that is done to check for the presence of prostate cancer in men. The prostate gland is a walnut-sized gland that is located below the bladder and in front of the rectum in males. The function of the prostate is to add fluid to semen during ejaculation. Prostate cancer is one of the most common types of cancer in men. Who should have prostate cancer screening? Screening recommendations vary based on age and other risk factors, as well as between the professional organizations who make the recommendations. In general, screening is recommended if: You are age 50 to 70 and have an average risk for prostate cancer. You should talk with your health care provider about your need for screening and how often screening should be done. Because most prostate cancers are slow growing and will not cause , screening in this age group is generally reserved for men who have a 10- to 15-year life expectancy. You are younger than age 50, and you have these risk factors: ?Having a father, brother, or uncle who has been diagnosed with prostate cancer. The risk is higher if your family member's cancer occurred at an early age or if you have multiple family members with prostate cancer at an early age. ?Being a male who is Black or is of [place] or sub-Saharan descent. In general, screening is not recommended if: You are younger than age 40. You are between the ages of 40 and 49 and you have no risk factors. You are 70 years of age or older. At this age, the risks that screening can cause are greater than the benefits that it may provide. If you are at high risk for prostate cancer, your health care provider may recommend that you have screenings more often or that you start screening at a younger age. How is screening for prostate cancer done? The recommended prostate cancer screening test is a blood test called the prostate-specific antigen (PSA) test. PSA is a protein that is made in the prostate. As you age, your prostate naturally produces more PSA. Abnormally high PSA levels may be caused by: Prostate cancer. An enlarged prostate that is not caused by cancer (benign prostatic hyperplasia, or BPH). This condition is very common in older men. A prostate gland infection (prostatitis) or urinary tract infection. Certain medicines such as male hormones (like testosterone) or other medicines that raise testosterone levels. A rectal exam may be done as part of prostate cancer screening to help provide information about the size of your prostate gland. When a rectal exam is performed, it should be done after the PSA level is drawn to avoid any effect on the results. Depending on the PSA results, you may need more tests, such as: A physical exam to check the size of your prostate gland, if not done as part of screening. Blood and imaging tests. A procedure to remove tissue samples from your prostate gland for testing (biopsy). This is the only way to know for certain if you have prostate cancer. What are the benefits of prostate cancer screening? Screening can help to identify cancer at an early stage, before symptoms start and when the cancer can be treated more easily. There is a small chance that screening may lower your risk of dying from prostate cancer. The chance is small because prostate cancer is a slow-growing cancer, and most men with prostate cancer from a different cause. What are the risks of prostate cancer screening? The main risk of prostate cancer screening is diagnosing and treating prostate cancer that would never have caused any symptoms or problems. This is called overdiagnosisand overtreatment. PSA screening cannot tell you if your PSA is high due to cancer or a different cause. A prostate biopsy is the only procedure to diagnose prostate cancer. Even the results of a biopsy may not tell you if your cancer needs to be treated. Slow-growing prostate cancer may not need any treatment other than monitoring, so diagnosing and treating it may cause unnecessary stress or other side effects. Questions to ask your health care provider When should I start prostate cancer screening? What is my risk for prostate cancer? How often do I need screening? What type of screening tests do I need? How do I get my test results? What do my results mean? Do I need treatment? Where to find more information The [employer]: www.cancer.org [employer]: www.auanet.org Contact a health care provider if: You have difficulty urinating. You have pain when you urinate or ejaculate. You have blood in your urine or semen. You have pain in your back or in the area of your prostate. Summary Prostate cancer is a common type of cancer in men. The prostate gland is located below the bladder and in front of the rectum. This gland adds fluid to semen during ejaculation. Prostate cancer screening may identify cancer at an early stage, when the cancer can be treated more easily and is less likely to have spread to other areas of the body. The prostate-specific antigen (PSA) test is the recommended screening test for prostate cancer, but it has associated risks. Discuss the risks and benefits of prostate cancer screening with your health care provider. If you are age 70 or older, the risks that screening can cause are greater than the benefits that it may provide. This information is not intended to replace advice given to you by your health care provider. Make sure you discuss any questions you have with your health care provider. Document Revised: 03/08/2022 Document Reviewed: 03/08/2022 [employer] Patient Education 2023 [employer]. Follow Up Care 12/19/2024 08:07:14 With:SHEA JARA, Jarad Hendrickson, URL Address: [facility] [address], [place] [address] [phone] When: Unknown Comments:3 mos surveillance cysto [facility] Melanie 04-01-2025 Note Patient Education Oncology Prostate Cancer Screening Prostate cancer screening is testing that is done to check for the presence of prostate cancer in men. The prostate gland is a walnut-sized gland that is located below the bladder and in front of the rectum in males. The function of the prostate is to add fluid to semen during ejaculation. Prostate cancer is one of the most common types of cancer in men. Who should have prostate cancer screening? Screening recommendations vary based on age and other risk factors, as well as between the professional organizations who make the recommendations. In general, screening is recommended if: ??? You are age 50 to 70 and have an average risk for prostate cancer. You should talk with your health care provider about your need for screening and how often screening should be done. Because most prostate cancers are slow growing and will not cause , screening in this age group is generally reserved for men who have a 10- to 15-year life expectancy. ??? You are younger than age 50, and you have these risk factors: ? Having a father, brother, or uncle who has been diagnosed with prostate cancer. The risk is higher if your family member's cancer occurred at an early age or if you have multiple family members with prostate cancer at an early age. ? Being a male who is Black or is of [place] or sub-Saharan descent. In general, screening is not recommended if: ??? You are younger than age 40. ??? You are between the ages of 40 and 49 and you have no risk factors. ??? You are 70 years of age or older. At this age, the risks that screening can cause are greater than the benefits that it may provide. If you are at high risk for prostate cancer, your health care provider may recommend that you have screenings more often or that you start screening at a younger age. How is screening for prostate cancer done? The recommended prostate cancer screening test is a blood test called the prostate-specific antigen (PSA) test. PSA is a protein that is made in the prostate. As you age, your prostate naturally produces more PSA. Abnormally high PSA levels may be caused by: ??? Prostate cancer. ??? An enlarged prostate that is not caused by cancer (benign prostatic hyperplasia, or BPH). This condition is very common in older men. ??? A prostate gland infection (prostatitis) or urinary tract infection. ??? Certain medicines such as male hormones (like testosterone) or other medicines that raise testosterone levels. A rectal exam may be done as part of prostate cancer screening to help provide information about the size of your prostate gland. When a rectal exam is performed, it should be done after the PSA level is drawn to avoid any effect on the results. Depending on the PSA results, you may need more tests, such as: ??? A physical exam to check the size of your prostate gland, if not done as part of screening. ??? Blood and imaging tests. ??? A procedure to remove tissue samples from your prostate gland for testing (biopsy). This is the only way to know for certain if you have prostate cancer. What are the benefits of prostate cancer screening? Screening can help to identify cancer at an early stage, before symptoms start and when the cancer can be treated more easily. ??? There is a small chance that screening may lower your risk of dying from prostate cancer. The chance is small because prostate cancer is a slow-growing cancer, and most men with prostate cancer from a different cause. What are the risks of prostate cancer screening? The main risk of prostate cancer screening is diagnosing and treating prostate cancer that would never have caused any symptoms or problems. This is called overdiagnosisand overtreatment. PSA screening cannot tell you if your PSA is high due to cancer or a different cause. A prostate biopsy is the only procedure to diagnose prostate cancer. Even the results of a biopsy may not tell you if your cancer needs to be treated. Slow-growing prostate cancer may not need any treatment other than monitoring, so diagnosing and treating it may cause unnecessary stress or other side effects. Questions to ask your health care provider ??? When should I start prostate cancer screening? What is my risk for prostate cancer? How often do I need screening? What type of screening tests do I need? How do I get my test results? What do my results mean? Do I need treatment? Where to find more information ??? The [employer]: www.cancer.org ??? [employer]: www.auanet.org Contact a health care provider if: ??? You have difficulty urinating. ??? You have pain when you urinate or ejaculate. ??? You have blood in your urine or semen. ??? You have pain in your back or in the area of your prostate. Summary ??? Prostate cancer is a common type of cancer in men. The prostate gland (more content not included)... [facility] 03-22-2025 History of Present illness Narrative Images from the original note were not included. Subjective Patient ID: Venita Rosenberg is a 59 y.o. male who presents for Knee Pain. Knee Pain Patient presents with knee pain involving the right knee. Onset of the symptoms was several years ago. Inciting event: none known. Current symptoms include giving out, pain , stiffness, and swelling. Pain is aggravated by any weight bearing, going [...] Visit Vitals Ht 5' 11 BMI 18.97 kg/m BSA 1.76 m Review of Systems Objective Physical Exam Musculoskeletal: [...] follow-ups on file. documented in this encounter [facility] 02-22-2025 Note HNO ID: [id number] Author: ALTAGRACIA SOARES RN Service: ? Author Type: Registered Nurse Type: Progress Notes Filed: 02/22/2025 15:12 Note Text: 1315-Lidocaine urojet instilled followed by #14 Fr Coude' catheter, 50 ml clear yellow urine drained into chowdhury bag. 1347-Bag clamped, 50 ml BCG instilled, catheter pulled and pt discharged to home to rotate on his own. Patient presents for #6 BCG treatment. Prepped with betadine and BCG in 50 mls saline instilled in the bladder via #14 Coude' red Quintanilla catheter without difficulty. Patient tolerated well. Patient instructed not to void for 2 hours. Altagracia Soares RN [facility] 02-22-2025 History of Present illness Narrative 1315-Lidocaine urojet instilled followed by #14 Fr Coude' catheter, 50 ml clear yellow urine drained into chowdhury bag. 1347-Bag clamped, 50 ml BCG instilled, catheter pulled and pt discharged to home to rotate on his own. Patient presents for #6 BCG treatment. Prepped with betadine and BCG in 50 mls saline instilled in the bladder via #14 Coude' red Quintanilla catheter without difficulty. Patient tolerated well. Patient instructed not to void for 2 hours. Altagracia Soares RN No need to do UA today if pt is asymptomatc per AV. Yaima Sinclair RN documented in this encounter [facility] 02-22-2025 Note HNO ID: [id number] Author: YAIMA SINCLAIR RN Service: ? Author Type: Registered Nurse Type: Progress Notes Filed: 02/22/2025 15:12 Note Text: No need to do UA today if pt is asymptomatc per AV. Yaima Sinclair RN [facility] 02-15-2025 Note HNO ID: [id number] Author: YAIMA SINCLAIR RN Service: ? Author Type: Registered Nurse Type: Progress Notes Filed: 02/15/2025 15:11 Note Text: 14 tristanian coude catheter inserted per protocol without difficulty. Pt tolerated well. 50ml clear, yellow urine drained to gravity. 1347- BCG instilled per protocol and catheter clamped. 10 ml of saline removed from catheter and chowdhury d/preeti. Pt discharged home. [facility] 02-15-2025 Note HNO ID: [id number] Author: DARWIN QUINTEROS MD Service: ? Author Type: Physician Type: Progress Notes Filed: 02/15/2025 13:40 Note Text: PATIENT NAME: Venita Rosenberg CLINIC NO.: [id number] ATTENDING PHYSICIAN: Darwin Quinteros MD DATE OF SERVICE: 02/15/[address] Jarad Valdivia [address] [facility] [address] thank you for referring Venita Rosenberg for an opinion regarding h/o bladder cancer. Some of the elements of this note have been copied from my previous progress note dated 02/01/25. All the information has been reviewed carefully. CHIEF COMPLAINT: Bladder cancer HPI: Venita Rosenberg is a 59 year old year old male with h/o bladder cancer diagnosed in 2011 s/p TURBT. TURBT (03/02/24) - high grade papillary urothelial carcinoma. Muscularis propria negative for invasion. S/p 6 weekly BCG treatments in Apr 2024. Prostate biopsy (09/04/24)- Benign prostate tissue with focal chronic inflammation. Last cystoscopy was in Aug 2024. Normal bladder. Doing well No major complaints. No smoking Occasional alcohol. 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 Unremarkable. - Doing well - No major complaints. 02/15/25: - Missed last week BCG treatment as they were not able to put chowdhury catheter. - Doing well - No major complaints. Current Outpatient Medications Medication Sig alfuzosin SR (UROXATRAL) 10 mg 24 hr tablet Take 10 mg by mouth once daily. (Patient not taking: Reported on 02/01/2025) No current facility-administered medications for this visit. 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 Elevated prostate specific antigen (PSA) Hematuria Kidney stone Prostate nodule Renal atrophy PAST SURGICAL HISTORY Procedure Laterality Date CYSTOSCOPY x6 CYSTOSCOPY PAST SURGICAL HISTORY OF 03/01/2024 TURBT PAST SURGICAL HISTORY OF 12/22/2022 Transrectal needle biopsy of prostate PAST SURGICAL HISTORY OF 08/19/2015 Transrectal biopsy of prostate using ultrasound PAST SURGICAL HISTORY OF 05/30/2012 Cystoscopy with removal of ureteric stent PAST SURGICAL HISTORY OF 05/18/2012 Cystoscopy and transurethral resection of bladder tumor PAST SURGICAL HISTORY OF Tonsillectomy REMOVAL GALLBLADDER FAMILY HISTORY Problem Relation Age of Onset Breast Cancer Mother Cervical Cancer Mother Cervical Cancer Sister Breast Cancer Sister Social History Tobacco Use Smoking status: Former Types: Cigarettes Smokeless tobacco: Current Vaping Use Vaping status: Never Used Substance Use Topics Alcohol use: Never Drug use: Never REVIEW OF SYSTEMS GENERAL: No weight loss, malaise or fevers. No night sweats. HEENT: Negative for headaches, No changes in hearing or vision, no nose bleeds or other nasal problems. RESPIRATORY: Negative for cough, wheezing and shortness of breath CARDIOVASCULAR: Negative for chest pain, leg swelling and palpitations GI: Negative for abdominal discomfort, blood in stools or black stools and change in bowel habits : Negative for dysuria, frequency and incontinence MUSCULOSKELETAL: Negative for joint pain or swelling, back pain, and muscle pain. SKIN: Negative for lesions, rash, and itching. HEMATOLOGY/LYMPHOLOGY Negative for prolonged bleeding, bruising easily, and swollen nodes. NEURO: Negative for numbness or tingling of hands/feet. No weakness. PHYSICAL EXAMINATION: There were no vitals taken for this visit. There were no vitals taken for this visit. No data found for this vital: Wt General appearance:ECOG PERFORMANCE STATUS: 0- Fully active, able to carry on all pre-disease performance w/o restriction. Patient in NAD. Skin: Skin color, texture, turgor normal. No rashes or lesions. Eyes: Anicteric sclera. Pupils are equally round and reactive to light. Extraocular movements are intact. Breast: No palpable breast masses. No nipple change or discharge. Lymph Nodes: No cervical, supraclavicular, axillary or inguinal adenopathy. Oropharynx: Lips, mucosa, and tongue normal. Back: No pain to percussion. Negative SLR test Lungs clear to auscultation, No wheezing or rhonchi Heart: RRR without murmur, gallop, or rubs. Abdomen soft, non-tender. No masses, organomegaly Extremities: No deformities. No edema Neuro: Gait and speech normal. Reflexes normal and symmetric. Muscular strength intact. Sensation grossly intact. Rectal: Deferred : Deferred LABS: Glucose (mg/dL) Date Value 02/01/2025 115 Potassium (mmol/L) Date Value 02/01/2025 4.1 Sodium (mmol/L) Date Value 02/01/2025 139 Chloride (mmol/L) Date Value 02/01/2025 104 CO2 (mmol/L) Date Value 02/01/2025 27 Creatinine (mg/dL) Date Value 02/01 (more content not included)... [facility] 02-11-2025 Telephone encounter Note Patient is scheduled for BCG 02/22 at 1pm. Already scheduled for appts on 02/15, will notifiy patient on 02/15 [facility] 02-11-2025 Miscellaneous Notes Patient is scheduled for BCG 02/22 at 1pm. Already scheduled for appts on 02/15, will notifiy patient on 02/15 OK fine. Thank you Pt here for BCG 2/3 BCG tx, unable to place catheter after 4 attempts with coude catheter. AV notified, pt to come back as scheduled in 1 week to try again. Pt will take his Flomax as directed in the meantime. PSS: Please add pt the tx schedule on Thursday 02/22 for his 3rd BCG tx. Yaima Sinclair RN documented in this encounter [facility] 02-08-2025 Telephone encounter Note EB walker. Thank you [facility] Work Phone: 02-08-2025 Telephone encounter Note Pt here for BCG 2/3 BCG tx, unable to place catheter after 4 attempts with coude catheter. AV notified, pt to come back as scheduled in 1 week to try again. Pt will take his Flomax as directed in the meantime. PSS: Please add pt the tx schedule on Thursday 02/22 for his 3rd BCG tx. Yaima Sinclair RN [facility] 02-08-2025 Note HNO ID: [id number] Author: PANCHO POLLACK RN Service: ? Author Type: Registered Nurse Type: Progress Notes Filed: 02/08/2025 14:22 Note Text: 1307 -- Pt presents for bcg maintenance tx #2, denies any s/s of UTI at this time. 1310 -- 16 fr coude inserted with resistance mid-way through. Pt denies pain, no bleeding and pt agreeable to continue attempt. 1320 -- RN without successful chowdhury placement, pt states during tx's insertions got harder as I did them. 2nd RN in to attempt. 1332 -- 2nd RN unsuccessful with insertion attempt. Pt agreeable for 3rd RN to attempt. 1335 -- 3rd RN in with pt attempting catheter insertion. 1345 -- 3rd RN unsuccessful with insertion attempt. Pt agreeable for 4th RN to attempt. 1348 -- 4th RN in with pt attempting catheter insertion. 1357 -- 4th RN unsuccessful with insertion attempt. Pt agreeable to reschedule d/t inability to place chowdhury today. Lead RN aware and of need to reschedule. 1404 -- Lead nurse in to speak with pt for POC. 1410 -- Lead nurse spoke with Dr. Quinteros who is agreeable to cancel today and reschedule next week. Pt aware and agreeable, will stop at frontload driver for new appt. Pancho Pollack RN [facility] 02-08-2025 History of Present illness Narrative 1307 -- Pt presents for bcg maintenance tx #2, denies any s/s of UTI at this time. 1310 -- 16 fr coude inserted with resistance mid-way through. Pt denies pain, no bleeding and pt agreeable to continue attempt. 1320 -- RN without successful chowdhury placement, pt states during tx's insertions got harder as I did them. 2nd RN in to attempt. 1332 -- 2nd RN unsuccessful with insertion attempt. Pt agreeable for 3rd RN to attempt. 1335 -- 3rd RN in with pt attempting catheter insertion. 1345 -- 3rd RN unsuccessful with insertion attempt. Pt agreeable for 4th RN to attempt. 1348 -- 4th RN in with pt attempting catheter insertion. 1357 -- 4th RN unsuccessful with insertion attempt. Pt agreeable to reschedule d/t inability to place chowdhury today. Lead RN aware and of need to reschedule. 1404 -- Lead nurse in to speak with pt for POC. 1410 -- Lead nurse spoke with Dr. Quinteros who is agreeable to cancel today and reschedule next week. Pt aware and agreeable, will stop at frontload driver for new appt. Pancho Pollack RN documented in this encounter [facility] 02-01-2025 Note HNO ID: [id number] Author: DARA MOJICA RN Service: ? Author Type: Registered Nurse Type: Progress Notes Filed: 02/01/2025 14:26 Note Text: 1338: Pt denies s/s of UTI, UA obtained per orders by Dr Rowland. 16F coude catheter inserted via sterile technique without problems. Clear yellow draining into drain bag. 1400: 25 mL noted in collection bag. Chowdhury clamped, BCG instilled. Balloon deflated and catheter dc'd without problems. Pt wishes to return home and instructed to turn every 15 minutes for 2 hours before voiding. Pt verbalizes understanding. Pt to dress self and then exit. Dara Mojica RN [facility] 02-01-2025 History of Present illness Narrative 1338: Pt denies s/s of UTI, UA obtained per orders by Dr Rowland. 16F coude catheter inserted via sterile technique without problems. Clear yellow draining into drain bag. 1400: 25 mL noted in collection bag. Chowdhury clamped, BCG instilled. Balloon deflated and catheter dc'd without problems. Pt wishes to return home and instructed to turn every 15 minutes for 2 hours before voiding. Pt verbalizes understanding. Pt to dress self and then exit. Dara Mojica RN Dr. Quinteros gives orders to do UA today, no need to wait on results. Verifies pt needs a UA ONLY today, not necessary for future (02/08 & 02/15) maintenance BCG's. Diomedes Cannon RN documented in this encounter [facility] 02-01-2025 Note HNO ID: [id number] Author: MARY ALEXIS MA Service: ? Author Type: Cell Operator Type: Progress Notes Filed: 02/01/2025 13:41 Note Text: UA performed as ordered for TX. Mary Alexis MA [facility] 02-01-2025 History of Present illness Narrative UA performed as ordered for TX. Mary Alexis MA documented in this encounter [facility] 02-01-2025 Note HNO ID: [id number] Author: DIOMEDES CANNON RN Service: ? Author Type: Registered Nurse Type: Progress Notes Filed: 02/01/2025 14:26 Note Text: Dr. Quinteors gives orders to do UA today, no need to wait on results. Verifies pt needs a UA ONLY today, not necessary for future (02/08 AND 02/15) maintenance BCG's. Diomedes Cannon RN [facility] 02-01-2025 Instructions Darwin Quinteros MD - 02/01/2025 1:09 PM EDT Treatment today and every week F/u in 2 weeks documented in this encounter [facility] 02-01-2025 History of Present illness Narrative Images from the original note were not included. PATIENT NAME: Venita Rosenberg [facility] NO.: [id number] ATTENDING PHYSICIAN: Darwin Quinteros MD DATE OF SERVICE: 02/01/[address] Jarad Valdivia [address] [facility] [id number] thank you for referring Venita Rosenberg for an opinion regarding h/o bladder cancer. Some of the elements of this note have been copied from my previous progress note dated 10/26/24. All the information has been reviewed carefully. CHIEF COMPLAINT: Bladder cancer HPI: Venita Rosenbreg is a 59 year old year old male with h/o bladder cancer diagnosed in 2011 s/p TURBT. TURBT (03/02/24) - high grade papillary urothelial carcinoma. Muscularis propria negative for invasion. S/p 6 weekly BCG treatments in Apr 2024. Prostate biopsy (09/04/24)- Benign prostate tissue with focal chronic inflammation. Last cystoscopy was in Aug 2024. Normal bladder. Doing well No major complaints. No smoking Occasional alcohol. 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 Unremarkable. - Doing well - No major complaints. Current Outpatient Medications Medication Sig alfuzosin SR (UROXATRAL) 10 mg 24 hr tablet Take 10 mg by mouth once daily. (Patient not taking: Reported on 02/01/2025) No current facility-administered medications for this visit. 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 Elevated prostate specific antigen (PSA) Hematuria Kidney stone Prostate nodule Renal atrophy PAST SURGICAL HISTORY Procedure Laterality Date CYSTOSCOPY x6 CYSTOSCOPY PAST SURGICAL HISTORY OF 03/01/2024 TURBT PAST SURGICAL HISTORY OF 12/22/2022 Transrectal needle biopsy of prostate PAST SURGICAL HISTORY OF 08/19/2015 Transrectal biopsy of prostate using ultrasound PAST SURGICAL HISTORY OF 05/30/2012 Cystoscopy with removal of ureteric stent PAST SURGICAL HISTORY OF 05/18/2012 Cystoscopy and transurethral resection of bladder tumor PAST SURGICAL HISTORY OF Tonsillectomy REMOVAL GALLBLADDER FAMILY HISTORY Problem Relation Age of Onset Breast Cancer Mother Cervical Cancer Mother Cervical Cancer Sister Breast Cancer Sister Social History Tobacco Use Smoking status: Former Types: Cigarettes Smokeless tobacco: Current Vaping Use Vaping status: Never Used Substance Use Topics Alcohol use: Never Drug use: Never REVIEW OF SYSTEMS GENERAL: No weight loss, malaise or fevers. No night sweats. HEENT: Negative for headaches, No changes in hearing or vision, no nose bleeds or other nasal problems. RESPIRATORY: Negative for cough, wheezing and shortness of breath CARDIOVASCULAR: Negative for chest pain, leg swelling and palpitations GI: Negative for abdominal discomfort, blood in stools or black stools and change in bowel habits : Negative for dysuria, frequency and incontinence MUSCULOSKELETAL: Negative for joint pain or swelling, back pain, and muscle pain. SKIN: Negative for lesions, rash, and itching. HEMATOLOGY/LYMPHOLOGY Negative for prolonged bleeding, bruising easily, and swollen nodes. NEURO: Negative for numbness or tingling of hands/feet. No weakness. PHYSICAL EXAMINATION: BP 124/79 Pulse (!) 57 Temp 36.3 C (97.3 F) (Temporal) Resp 16 Ht 175.4 cm (5' 9.06 ) Wt 61.3 kg (135 lb 2.3 oz) SpO2 99% BMI 19.93 kg/m There were no vitals taken for this visit. No data found for this vital: Wt General appearance:ECOG PERFORMANCE STATUS: 0- Fully active, able to carry on all pre-disease performance w/o restriction. Patient in NAD. Skin: Skin color, texture, turgor normal. No rashes or lesions. Eyes: Anicteric sclera. Pupils are equally round and reactive to light. Extraocular movements are intact. Breast: No palpable breast masses. No nipple change or discharge. Lymph Nodes: No cervical, supraclavicular, axillary or inguinal adenopathy. Oropharynx: Lips, mucosa, and tongue normal. Back: No pain to percussion. Negative SLR test Lungs clear to auscultation, No wheezing or rhonchi Heart: RRR without murmur, gallop, or rubs. Abdomen soft, non-tender. No masses, organomegaly Extremities: No deformities. No edema Neuro: Gait and speech normal. Reflexes normal and symmetric. Muscular strength intact. Sensation grossly intact. Rectal: Deferred : Deferred LABS: Glucose (mg/dL) Date Value 10/26/2024 98 Potassium (mmol/L) Date Value 10/26/2024 4.7 Sodium (mmol/L) Date Value 10/26/2024 140 Chloride (mmol/L) Date Value 10/26/2024 106 CO2 (mmol/L) Date Value 10/26/2024 29 Creatinine (mg/dL) Date Value 10/26/2024 0.94 BUN (mg/dL) Date Value 10/26/2024 13 Anion Gap (mmol/L) Date Value 10/26/2024 5 Calcium, Total (mg/dL) Date Value 10/26/2024 9.8 Protein, Total (g/dL) Date Value 10/26/2024 7.2 Albumin (g/dL) Date Value 10/26/2024 4.3 Bilirubin, Total (mg/dL) Date Value 10/26/2024 0.5 Alkaline Phosphatase (U/L) Date Value 10/26/2024 86 AST (U/L) Date Value 10/26/2024 14 ALT (U/L) Date Value 10/26/2024 12 WBC Date Value Ref Range Status 10/26/2024 4.24 3.70 - 11.00 k/uL Final RBC Date Value Ref Range Status 10/26/2024 5.27 4.20 - 6.00 m/uL Final Hemoglobin Date Value Ref Range Status 10/26/2024 16.4 13.0 - 17.0 g/dL Final Hematocrit Date Value Ref Range Status 10/26/2024 47.1 39.0 - 51.0 % Final MCV Date Value Ref Range Status 10/26/2024 89.4 80.0 - 100.0 fL Final MCH Date Value Ref Range Status 10/26/2024 31.1 26.0 - 34.0 pg Final MCHC Date Value Ref Range Status 10/26/2024 34.8 30.5 - 36.0 g/dL Final RDW-CV Date Value Ref Range Status 10/26/2024 12.7 11.5 - 15.0 % Final Platelet Count Date Value Ref Range Status 10/26/2024 198 150 - 400 k/uL Final MPV Date Value Ref Range Status 10/26/2024 9.1 9.0 - 12.7 fL Final Abs Neut Date Value Ref Range Status 10/26/2024 2.67 1.45 - 7.50 k/uL Final Lymphocytes % Date Value Ref Range Status 10/26/2024 26.2 % Final Abs Lymph Date Value Ref Range Status 10/26/2024 1.11 1.00 - 4.00 k/uL Final Monocytes % Date Value Ref Range Status 10/26/2024 9.9 % Final Abs Donley Date Value Ref Range Status 10/26/2024 0.42 <0.87 k/uL Final Abs Eosin Date Value Ref Range Status 10/26/2024 <0.03 <0.46 k/uL Final Basophils % Date Value Ref Range Status 10/26/2024 0.7 % Final Abs Baso Date Value Ref Range Status 10/26/2024 0.03 <0.11 k/uL Final PATH: IMAGING: ASSESSMENT AND PLAN: Venita Rosenberg is a 59 year old year old male referred to us for h/o non muscle invasive bladder cancer. Liver cirrhosis on CT scan in December 2022. PS 0 - He underwent TURBT (03/02/24) - high grade papillary urothelial carcinoma. Muscularis propria negative for invasion. - S/p 6 weekly induction BCG treatments in Apr 2024. PLAN: - Completed 1st maintenance BCG weekly x 3 treatments on 11/08/24 (10/26, 11/02 and 11/08/24). - Proceed with 2nd maintenance BCG weekly x 3 treatments starting today - Cystoscopy done in November 2024. Unremarkable - F/u with GI for liver cirrhosis. - Next maintenance BCG treatment is in Jul 2025. - Blood work today is unremarkable. - All his questions answered in detail - F/u in [address] Jarad Valdivia [address] [facility] [address] thank you for allowing me to participate in Venita Rosenberg care, if there are any questions or concerns please do not hesitate to contact me at the number below. I spent a total of 30 minutes on the date of the service which included preparing to see the patient, [id number] patient care, completing clinical documentation, obtaining and/or reviewing separately obtained history, performing a medically appropriate examination, counseling and educating the patient/family/caregiver, ordering medications, tests, or procedures, communicating with other HCPs (not separately reported), independently interpreting results (not separately reported), communicating results to the patient/family/caregiver, and care coordination (not separately reported). Darwin Quinteros MD. Hematology/Medical Oncology [place] [address] [phone] CC: documented in this encounter [facility] 02-01-2025 Note HNO ID: [id number] Author: DARWIN QUINTEROS MD Service: ? Author Type: Physician Type: Progress Notes Filed: 02/01/2025 13:29 Note Text: PATIENT NAME: Venita Rosenberg CLINIC NO.: [id number] ATTENDING PHYSICIAN: Darwin Quinteros MD DATE OF SERVICE: 02/01/[address] Jarad Valdivia [address] [facility] [address] thank you for referring Venita Rosenberg for an opinion regarding h/o bladder cancer. Some of the elements of this note have been copied from my previous progress note dated 10/26/24. All the information has been reviewed carefully. CHIEF COMPLAINT: Bladder cancer HPI: Venita Rosenberg is a 59 year old year old male with h/o bladder cancer diagnosed in 2011 s/p TURBT. TURBT (03/02/24) - high grade papillary urothelial carcinoma. Muscularis propria negative for invasion. S/p 6 weekly BCG treatments in Apr 2024. Prostate biopsy (09/04/24)- Benign prostate tissue with focal chronic inflammation. Last cystoscopy was in Aug 2024. Normal bladder. Doing well No major complaints. No smoking Occasional alcohol. 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 Unremarkable. - Doing well - No major complaints. Current Outpatient Medications Medication Sig alfuzosin SR (UROXATRAL) 10 mg 24 hr tablet Take 10 mg by mouth once daily. (Patient not taking: Reported on 02/01/2025) No current facility-administered medications for this visit. 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 Elevated prostate specific antigen (PSA) Hematuria Kidney stone Prostate nodule Renal atrophy PAST SURGICAL HISTORY Procedure Laterality Date CYSTOSCOPY x6 CYSTOSCOPY PAST SURGICAL HISTORY OF 03/01/2024 TURBT PAST SURGICAL HISTORY OF 12/22/2022 Transrectal needle biopsy of prostate PAST SURGICAL HISTORY OF 08/19/2015 Transrectal biopsy of prostate using ultrasound PAST SURGICAL HISTORY OF 05/30/2012 Cystoscopy with removal of ureteric stent PAST SURGICAL HISTORY OF 05/18/2012 Cystoscopy and transurethral resection of bladder tumor PAST SURGICAL HISTORY OF Tonsillectomy REMOVAL GALLBLADDER FAMILY HISTORY Problem Relation Age of Onset Breast Cancer Mother Cervical Cancer Mother Cervical Cancer Sister [facility] Social History Tobacco Use Smoking status: Former Types: Cigarettes Smokeless tobacco: Current Vaping Use Vaping status: Never Used Substance Use Topics Alcohol use: Never Drug use: Never REVIEW OF SYSTEMS GENERAL: No weight loss, malaise or fevers. No night sweats. HEENT: Negative for headaches, No changes in hearing or vision, no nose bleeds or other nasal problems. RESPIRATORY: Negative for cough, wheezing and shortness of breath CARDIOVASCULAR: Negative for chest pain, leg swelling and palpitations GI: Negative for abdominal discomfort, blood in stools or black stools and change in bowel habits : Negative for dysuria, frequency and incontinence MUSCULOSKELETAL: Negative for joint pain or swelling, back pain, and muscle pain. SKIN: Negative for lesions, rash, and itching. HEMATOLOGY/LYMPHOLOGY Negative for prolonged bleeding, bruising easily, and swollen nodes. NEURO: Negative for numbness or tingling of hands/feet. No weakness. PHYSICAL EXAMINATION: BP 124/79 Pulse (!) 57 Temp 36.3 ?C (97.3 ?F) (Temporal) Resp 16 Ht 175.4 cm (5' 9.06 ) Wt 61.3 kg (135 lb 2.3 oz) SpO2 99% BMI 19.93 kg/m? There were no vitals taken for this visit. No data found for this vital: Wt General appearance:ECOG PERFORMANCE STATUS: 0- Fully active, able to carry on all pre-disease performance w/o restriction. Patient in NAD. Skin: Skin color, texture, turgor normal. No rashes or lesions. Eyes: Anicteric sclera. Pupils are equally round and reactive to light. Extraocular movements are intact. Breast: No palpable breast masses. No nipple change or discharge. Lymph Nodes: No cervical, supraclavicular, axillary or inguinal adenopathy. Oropharynx: Lips, mucosa, and tongue normal. Back: No pain to percussion. Negative SLR test Lungs clear to auscultation, No wheezing or rhonchi Heart: RRR without murmur, gallop, or rubs. Abdomen soft, non-tender. No masses, organomegaly Extremities: No deformities. No edema Neuro: Gait and speech normal. Reflexes normal and symmetric. Muscular strength intact. Sensation grossly intact. Rectal: Deferred : Deferred LABS: Glucose (mg/dL) Date Value 10/26/2024 98 Potassium (mmol/L) Date Value 10/26/2024 4.7 Sodium (mmol/L) Date Value 10/26/2024 140 Chloride (mmol/L) Date Value 10/26/2024 106 CO2 (mmol/L) Date Value 10/26/2024 29 Creatinine (mg/dL) Date Value 10/26/2024 0.94 BUN (m (more content not included)... [facility] 01-29-2025 Telephone encounter Note Please place lab orders for treatment on 02/01. Thanks! Luana Le MA [facility] 01-29-[address] lab orders for treatment on 02/01. Thanks! Luana Le MA documented in this encounter [facility] 01-14-2025 Procedure note [facility] enter 01-04-2025 Radiology Diagnostic study note [facility] Main [place] [address] [place], [place] [id number] Ultrasound Report Signed Patient: Venita Rosenberg MR#: [id number] : 1965 Acct:[id number] Age/Sex: 59 / M ADM Date: 5 Loc: Room: Type: [facility] Attending Dr: Kim Matute MD Ordering Provider: Kim Matute MD Date of Service: 01/04/25 US/US liver: K74.60 - Unspecified cirrhosis of liver Copies to: Kim Matute MD~ LIMITED ABDOMINAL ULTRASOUND: CLINICAL HISTORY: Cirrhosis. COMPARISON: None TECHNIQUE: Grayscale and color Doppler images of the right upper quadrant organswere obtained. FINDINGS: Pancreas: Visualized portions appear unremarkable. Liver: No mass or intrahepatic ductal dilatation. Hepatopedal flow is seen within the portal vein. Gallbladder: Removed. CBD: 3.8 mm RT KIDNEY: No Hydronephrosis US/US liver IMPRESSION: NO ACUTE PROCESS. NO HEPATIC MASS.. Impression dictated by: Leonardo Mitchell Jr., YunOJorge Alberto01/04/2025 2:16 PM Dictation Location: [place] [address] Tech: Blossom Lara Transcribed By: [facility] 01/04/25 1416 Dictated By: Leonardo Mitchell Jr, DO 01/04/25 1416 Signed By: 01/04/25 1416 [facility] 12-31-2024 Evaluation note Authored December 31, 2024 9:36 am 59-year-old man referred to the liver clinic for evaluation of liver cirrhosis. CT in 2022 showed cirrhotic morphology of the liver with upper abdominal varices + alcohol dependence. Will check MELD labs Will arrange for US and AFP every 6 months. Will arrange for EGD Patient was counseled about the importance of alcohol dependence. Will check viral hepatitis serologies. [facility] Work Phone: 1(137) 547-740104-07-2025 Evaluation note* Author [facility] Authored December 31, 2024 9:36 am 59-year-old man referred to the liver clinic for evaluation of liver cirrhosis. CT in 2022 showed cirrhotic morphology of the liver with upper abdominal varices + alcohol dependence. Will check MELD labs Will arrange for US and AFP every 6 months. Will arrange for EGD Patient was counseled about the importance of alcohol dependence. Will check viral hepatitis serologies. Author [facility] Authored March 05, 2025 1:15 pm 59-year-old man with liver c irrhosis secondary to alcohol came today for follow- up CT in 2022 showed cirrhotic morphology of the liver with upper abdominal varices + history of alcohol dependence. He stopped alcohol in 12/2024 MELD is 7.continue to monitor MELD labs Ultrasound on showed no liver masses. Will arrange for US and AFP every 6 months. EGD on 01/14/2025 did not show varices however it showed hiatal hernia Schatzki's ring gastric polyps and mild gastritis, gastric biopsies negative for H. pylori. Patient was counseled about the importance of alcohol dependence. HBV and HAV serologies were unremarkable. Will check hepatitis C antibody [facility] Work Phone: 1(606) 644-248103-28-2025 Telephone encounter Note* Telephone Encounter - Darwin Quinteros MD - 12/21/2024 12:48 PM EDT Thank you. [facility] Work Phone: 1(284) 121-511603-28-2025 Miscellaneous Notes* Telephone Encounter - Darwin Quinteros MD - 12/21/2024 12:48 PM EDT Thank you. * Telephone Encounter - Nichole Grimes RN - 12/21/2024 11:45 AM EDT Pharmacy: are you still placing orders for Dr Rowland? If so orders need to be placed in [place]. Thanks Nichole Grimes RN * Telephone Encounter - Suleman Armijo - 12/21/2024 10:05 AM EDT Patient has already been scheduled for RV on 02/01 from last appt. Suleman Armijo * Telephone Encounter - Altagracia Downey - 12/20/2024 4:03 PM EDT Report scanned. * Telephone Encounter - Darwin Quinteros MD - 12/20/2024 3:36 PM EDT Schedule maintenance BCG treatments weekly x 3 when he comes to see me on 02/01/25. Thanks. * Telephone Encounter - Nichole Grimes RN - 12/20/2024 3:15 PM EDT Voicemail received from Tania at Dr Valdivia office stating pt's cystoscopy showed that he needs 3 more BCG treatments in December and January. Pt's follow up not until February 01. When would you like follow up rescheduled to? [place]: can you get records please. Please advise Nichole Grimes RN [facility] Telephone encounter Note * Telephone Encounter - Nichole Grimes RN - 12/21/2024 11:45 AM EDT Pharmacy: are you still placing orders for Dr Rowland? If so orders need to be placed in [place]. Thanks Nichole Grimes RN [facility] Work Phone: [phone] Telephone encounter Note* Telephone Encounter - Suleman Armijo - 12/21/2024 10:05 AM EDT Patient has already been scheduled for RV on 02/01 from last appt. Suleman Armijo [facility]03-27-2025 Telephone encounter Note* Telephone Encounter - Altagracia Downey - 12/20/2024 4:03 PM EDT Report scanned. [facility]03-27-2025 Telephone encounter Note* Telephone Encounter - Darwin Quinteros MD - 12/20/2024 3:36 PM EDT Schedule maintenance BCG treatments weekly x 3 when he comes to see me on 02/01/25. Thanks. [facility]03-27-2025 Telephone encounter Note* Telephone Encounter - Nichole Grimes RN - 12/20/2024 3:15 PM EDT Voicemail received from Tania at Dr Valdivia office stating pt's cystoscopy showed that he needs 3 more BCG treatments in December and January. Pt's follow up not until February 01. When would you like follow up rescheduled to? [place]: can you get records please. Please advise Nichole Grimes RN [facility]03-26-2025 NotePatient Education Oncology Cancer Screening for Males A cancer screening is a test or exam that checks for cancer. Work with your health care provider tocreate a cancer screening schedule that protects your health. Who should have screening? All people who are male should be considered for screening of certain cancers, including colorectalcancer, prostate cancer, lung cancer, and skin cancer. Your health care provider may recommend screenings for other types of cancer if: ??? You have had cancer before. ??? You have a family member with cancer. ??? You have genes that could increase the risk of cancer. ??? You have risk factors for certain cancers, such as current or past use of tobacco products or being overweight. What are the benefits of screening? Cancer screening is done to look for cancer in the very early stages, before it spreads and becomesharder to treat and before you would start to notice symptoms. Finding cancer early improves the chances of successful treatment. It may save your life. When should I be screened for cancer? When you should be screened for cancer depends on: ??? Your age. ??? Your medical history and your family's medical history. ??? Certain lifestyle factors, such as smoking or other use of tobacco products. ??? Environmental exposure, such as to asbestos. How is screening done? Colorectal cancer Colorectal cancer screening looks for cancer or for growths called polyps that often form before cancer starts. Tests to look for cancer or polyps include: ??? Colonoscopy or flexible sigmoidoscopy. For these procedures, a flexible tube with a small camera is inserted into the rectum. ??? CT colonography. This test uses X-rays and a contrast dye to check the colon for polyps. Tests to look for cancer in the stool (feces) include: ??? Guaiac-based fecal occult blood test (FOBT). This test can find blood in stool. It can be done at home with a kit. ??? Fecal immunochemical test (FIT). This test can find blood in stool. For this test, you will need to collect stool samples at home. ??? Stool DNA test. This test looks for blood in stool and any changes in DNA that can lead to colon cancer. For this test, you will need to collect a stool sample at home and send it to a lab. All adults should have screenings starting at 45 years old and continuing through 75 years old. Formales 76?85 years old, the decision to be screened should be based on a person's preferences, life expectancy, overall health, and prior screening history. Your health care provider may recommend screening before 45 years old. You will have tests every 1?10 years, depending on your results and the type of screening test. People at increased risk should start screening at an earlier age. Talk withyour health care provider about which screening test is right for you and how often you should be screened. Prostate cancer Prostate cancer screening is done with blood tests and a digital rectal exam. During this exam, a health care provider uses a gloved finger to check prostate size. You may need to be screened for prostate cancer if: ??? You have risk factors for prostate cancer, such as being an person or having aclose family member with prostate cancer. ??? You have had gene changes or a genetic condition that was passed on to you from a parent (inherited). These gene changes or genetic conditions include BRCA1 or BRCA2 gene mutations or Barker syndrome. ??? You have symptoms of prostate cancer, such as problems urinating or problems getting or keepingan erection (erectile dysfunction). When you have been screened for prostate cancer, future screening may be recommended based on the results of your blood tests. Prostate cancer screening for males with average risk may start at 50 years old. Males with risk factors may need to be screened earlier, at 40?45 years old. Talk with your health care provider aboutwhether screening is right for you and, if so, how often you should be screened. Lung cancer Lung cancer screening is done with a CT scan that looks for abnormal changes in the lungs. Discuss lung cancer screening with your health care provider if you are 50?80 years old and if any of the following apply to you: ??? You currently smoke. ??? You used to smoke heavily. ??? You have a smoking history of 1 pack of cigarettes a day for 20 years or 2 packs a day for 10 years. You may need to be screened every year if you smoke heavily or if you used to smoke. Skin cancer Skin cancer screening is done by checking the skin for unusual moles or spots and any changes in existing moles. Your health care provider should check your skin for signs of skin cancer at every physical exam. You should check your skin every month and tell your health care provider right away if anything looks unusual. Males with a yvjozn-[id number] risk for skin cancer may want to see a bpo specialist (dermatologi (more content not included)...[facility]02-13-2025 History of Present illness Narrative* Yaima Sinclair RN - 11/08/2024 9:05 AM EST 14 tristanian coude catheter inserted per Jolie Reddy RN after an unsuccessful attempt. 50ml clear, yellow urine drained to gravity. Pt tolerate well. 0930- BCG inserted per orders, chowdhury discontinued. Pt discharged with instilled BCG and states he will turn from side to side every 15 minutes for 2 hours. Yaima Sinclair RN documented [facility]25 NoteHNO ID: [id number] Author: YAIMA SINCLAIR RN Service: ? Author Type: Registered Nurse Type: Progress Notes Filed: 11/08/2024 09:41 Note Text: 14 tristanian coude catheter inserted per Jolie Reddy RN after an unsuccessful attempt. 50ml clear, yellow urine drained to gravity. Pt tolerate well. 0930- BCG inserted per orders, chowdhury discontinued. Pt discharged with instilled BCG and states he will turn from side to side every 15 minutes for 2 hours. [facility] NoteHNO ID: [id number] Author: MARY ALEXIS MA Service: ? Author Type: Cell Operator Type: Progress Notes Filed: 11/08/2024 08:52 Note Text: UA performed as ordered for TX. Mary Alexis [facility]02-13-2025 History of Present illness Narrative* Mary Alexis MA - 11/08/2024 8:51 AM EST UA performed as ordered for TX. Mary Alexis MA documented [facility]25 NoteHNO ID: [id number] Author: KIMBERLEE ROSENBERG LSW Service: ? Author Type: Demo Specialist Type: Progress Notes Filed: 11/06/2024 12:27 Note Text: .PSYCHOSOCIAL SCREENING ASSESSMENT Date of Service: November 02, 2024 Venita Rosenberg is a 59 year old male being seen for initial social work assessment. Diagnosis: Bladder Cancer New Primary Oncologist: Dr. Quinteros Radiation Oncologist: Unknown Goals of Care: Curative intent Today's visit includes: self/patient Family History of Cancer: Mother and Sibling(s) SUPPORT NETWORK: Social Connections: Not on file Marital status: Child/Children: Yes. How many? 2 manager primary care arrangements needed: Na Home Health Provider: No Community Services: No Gris Identified: not discussed Faith/Spirituality: Unknown Are these practices or beliefs that may affect or influence treatment? Unknown EMPLOYMENT/FINANCIAL/HEALTH INSURANCE: Employment: Employed: [employer] Income source: Salary Insurance: Private Prescription coverage: Yes Is the patient appropriate for referral to [facility] Assistance program? No Financial Distress: No [place]: No FOOD INSECURITY Within the past year, have you worried about how you would buy or obtain food? No LIVING ARRANGEMENTS: Type: House- independent colonial Resides with: Transportation Needs: Not on file FUNCTIONAL STATUS: Cognitive limitations: none Physical limitations: none Language barrier: No Hearing Impaired: No Speech Impaired: No Visual Impairments: No Special considerations/accommodations needed: No HEALTH LITERACY: Do you have difficulty understanding medical instructions or other written materials you receive from you doctor or pharmacy? Not asked Do have difficulty filling out medical forms by yourself? Not asked The following interventions were put into place: NA MEDICATION ADHERENCE: Within the past 2 weeks, have you had difficulty remembering to take your medicine? Not asked Within the past 2 weeks, did you ever miss taking your medications for reasons other than forgetting? No The following interventions were put into place: NA MENTAL HEALTH HISTORY: No History of combat/trauma: No Intimate Partner Violence: Not on file Substance Use and Treatment History: denied History of Abuse: No Issues with: Sleep:No Eating:No Exercising: N/A Stress Management: No ADVANCE DIRECTIVES/LEGAL DOCUMENTS: Living Will: Not addressed during this encounter Scanned into Zoomph: Not addressed during this encounter Health Care Durable Power of Wire Straightener: Not addressed during this encounter Scanned into EPIC: Not addressed during this encounter Guardianship: NA Scanned into EPIC:NA Reasons Advanced Directives were not Addressed: Time constraints COPING STATUS: Stress: Not on file Coping Strengths: supportive relationships with immediate family and with friends successful managing past crises hopefulness self advocate strong problem-solving skills ability to plan able to follow direction consistently over time able to communicate effectively Current affect/mood: appropriate Adjustment to diagnosis: reflecting understanding and responding appropriately BARRIERS/CARE CHALLENGES: None Are barriers/care challenges identified likely to have an impact on the patient's quality of life during treatment? No INTERVENTIONS/REFERRALS TO BE PROVIDED: Continue follow up as needed Resources and Referrals: Internal: NA External: N/A CLINICAL IMPRESSION: Patient is a 59 year old male with a diagnosis of bladder cancer. Patient lives in [place], [place] with his . SW met with Patient and explained the role of an Oncology SW as well as contact information to reach this SW. Patient denied any psychosocial needs. Patient reports that he has good social support. SW will remain available and will follow up as appropriate. Psychosocial Risk Criteria If positive for one or more of the following risk criteria, follow up every 30 days Age: NA Mental Health: NA Practical Needs: N/A PLAN: Follow up PRN Follow up appointment with SW in: PRN Assigned SW listed in Care Team tab: Yes PB Traylor Goals of Care Advance Directives are not on file.[facility]02-07-[facility] History of Present illness Narrative* Kimberlee Rosenberg LSW - 11/02/2024 2:10 PM EST .PSYCHOSOCIAL SCREENING ASSESSMENT Date of Service: November 02, 2024 Venita Rosenberg is a 59 year old male being seen for initial social work assessment. Diagnosis: Bladder Cancer New Primary Oncologist: Dr. Quinteros Radiation Oncologist: Unknown Goals of Care: Curative intent Today's visit includes: self/patient Family History of Cancer: Mother and Sibling(s) SUPPORT NETWORK: Social Connections: Not on file Marital status: Child/Children: Yes. How many? 2 manager primary care arrangements needed: Na Home Health Provider: No Community Services: No Gris Identified: not discussed Faith/Spirituality: Unknown Are these practices or beliefs that may affect or influence treatment? Unknown EMPLOYMENT/FINANCIAL/HEALTH INSURANCE: Employment: Employed: [employer] Income source: Salary Insurance: Private Prescription coverage: Yes Is the patient appropriate for referral to [facility] COBRA Assistance program? No Financial Distress: No [place]: No FOOD INSECURITY Within the past year, have you worried about how you would buy or obtain food? No LIVING ARRANGEMENTS: Type: House- independent colonial Resides with: Transportation Needs: Not on file FUNCTIONAL STATUS: Cognitive limitations: none Physical limitations: none Language barrier: No Hearing Impaired: No Speech Impaired: No Visual Impairments: No Special considerations/accommodations needed: No HEALTH LITERACY: Do you have difficulty understanding medical instructions or other written materials you receive from you doctor or pharmacy? Not asked Do have difficulty filling out medical forms by yourself? Not asked The following interventions were put into place: NA MEDICATION ADHERENCE: Within the past 2 weeks, have you had difficulty remembering to take your medicine? Not asked Within the past 2 weeks, did you ever miss taking your medications for reasons other than forgetting? No The following interventions were put into place: NA MENTAL HEALTH HISTORY: No History of combat/trauma: No Intimate Partner Violence: Not on file Substance Use and Treatment History: denied History of Abuse: No Issues with: Sleep:No Eating:No Exercising: N/A Stress Management: No ADVANCE DIRECTIVES/LEGAL DOCUMENTS: Living Will: Not addressed during this encounter Scanned into Zoomph: Not addressed during this encounter Health Care Durable Power of Wire Straightener: Not addressed during this encounter Scanned into EPIC: Not addressed during this encounter Guardianship: NA Scanned into EPIC:NA Reasons Advanced Directives were not Addressed: Time constraints COPING STATUS: Stress: Not on file Coping Strengths: supportive relationships with immediate family and with friends successful managing past crises hopefulness self advocate strong problem-solving skills ability to plan able to follow direction consistently over time able to communicate effectively Current affect/mood: appropriate Adjustment to diagnosis: reflecting understanding and responding appropriately BARRIERS/CARE CHALLENGES: None Are barriers/care challenges identified likely to have an impact on the patient's quality of life during treatment? No INTERVENTIONS/REFERRALS TO BE PROVIDED: Continue follow up as needed Resources and Referrals: Internal: NA External: N/A CLINICAL IMPRESSION: Patient is a 59 year old male with a diagnosis of bladder cancer. Patient lives in [place], [place] with his . SW met with Patient and explained the role of an Oncology SW as well as contact informationto reach this SW. Patient denied any psychosocial needs. Patient reports that he has good social support. SW will remain available and will follow up as appropriate. Psychosocial Risk Criteria If positive for one or more of the following risk criteria, follow up every 30 days Age: NA Mental Health: NA Practical Needs: N/A PLAN: Follow up PRN Follow up appointment with SW in: PRN Assigned SW listed in Care Team tab: Yes PB Traylor Goals of Care Advance Directives are not on file. documented in this [facility]Tr[facility]25 NoteHNO ID: [id number] Author: LUANA LE MA Service: ? Author Type: Cell Operator Type: Progress Notes Filed: 11/02/2024 13:29 Note Text: Back office UA test performed. Results entered in EventBoard and doctor notified. Luana Le [facility]02-07-2025 History of Present illness Narrative* Luana Le MA - 11/02/2024 1:29 PM EST Back office UA test performed. Results entered in EventBoard and doctor notified. Luana Le MA documented in this [facility]Tr[facility] History of Present illness Narrative* Altagracia Reddy RN - 11/02/2024 1:14 PM EST Urine for POC sent. 1345 Lidojet instilled. 16 fr chowdhury inserted without success. 14 Fr coudet chowdhury inserted with success and had clear yellow urine return. 1403 BCG instilled and catheter removed. Pt will go home and turn every 15 min for treatment. Will void immediately after. documented in this encounterTr[facility]-2025 NoteHNO ID: [id number] Author: ALTAGRACIA REDDY RN Service: ? Author Type: Registered Nurse Type: Progress Notes Filed: 11/02/2024 14:28 Note Text: Urine for POC sent. 1345 Lidojet instilled. 16 fr chowdhury inserted without success. 14 Fr coudet chowdhury inserted with success and had clear yellow urine return. 1403 BCG instilled and catheter removed. Pt will go home and turn every 15 min for treatment. Will void immediately after.[facility]02-06-2025 Telephone encounter Note* Telephone Encounter - Mildred Sorto - 11/01/2024 11:35 AM EST Spoke with [facility] [phone]. Patient is scheduled for 12/31/24. [facility]02-06-2025 Miscellaneous Notes* Telephone Encounter - Mildred Sorto - 11/01/2024 11:35 AM EST Spoke with [facility] [phone]. Patient is scheduled for 12/31/24. * Telephone Encounter - Gayathri Rothman - 10/30/2024 10:36 AM EST Called [facility]. Their office has received this referral, their pool coordinator is currently working on this referral and will be calling patient to get scheduled. Gayathri Riggins * Telephone Encounter - Altagracia Downey - 10/29/2024 9:52 AM EST Records faxed to [facility]. * Telephone Encounter - Suleman Armijo - 10/26/2024 1:09 PM EST Patient to be referred to [facility] re: Liver cirrhosis on CT scan in December 2022. Adamaris: Information is ready for you. Thanks! Suleman Armijo [facility] Telephone encounter Note * Telephone Encounter - Nichole Grimes RN - 10/31/2024 2:53 PM EST CYCLE 1/DAY 1 POST TREATMENT CALL Today's date: October 31, 2024 Treatment Regimen: BCG C1D1 Date: 10/26/24 Called patient to follow-up on symptom management. Spoke with patient SYMPTOM ASSESSMENT Neuro: None CV/Resp: None GI/: Bladder/Urinary Changes: pt states for the first 2 days after treatment he experienced pink tinged urine, spasms, burning, urgency. These symptoms resolved after the second day. Denies any needs at this time. Integument: None Activity: Patient reported no changes in energy level, energy level good Pain: No=0 (pain 0 on a scale of 0-10). Fever: No Chills: No Any new referrals needed? No Reinforced CURRENT treatment education based on current and anticipated symptoms. Discussed port/line care and patient verbalizes understanding: Not Applicable Patient instructed to contact office or after hours Hematology/Oncology fellow for: temperature >= 100.4; questions or concerns. Patient verbalized understanding of when to seek medical attention and after hours number protocol. Nichole Grimes RN [facility] Work Phone: [phone]) [phone] Miscellaneous Notes* Telephone Encounter - Nichole Grimes RN - 10/31/2024 2:53 PM EST CYCLE 1/DAY 1 POST TREATMENT CALL Today's date: October 31, 2024 Treatment Regimen: BCG C1D1 Date: 10/26/24 Called patient to follow-up on symptom management. Spoke with patient SYMPTOM ASSESSMENT Neuro: None CV/Resp: None GI/: Bladder/Urinary Changes: pt states for the first 2 days after treatment he experienced pink tinged urine, spasms, burning, urgency. These symptoms resolved after the second day. Denies any needs at this time. Integument: None Activity: Patient reported no changes in energy level, energy level good Pain: No=0 (pain 0 on a scale of 0-10). Fever: No Chills: No Any new referrals needed? No Reinforced CURRENT treatment education based on current and anticipated symptoms. Discussed port/line care and patient verbalizes understanding: Not Applicable Patient instructed to contact office or after hours Hematology/Oncology fellow for: temperature >= 100.4; questions or concerns. Patient verbalized understanding of when to seek medical attention and after hours number protocol. Nichole Grimes, RN documented in this encounterTr[facility] Telephone encounter Note * Telephone Encounter - Gayathri Rothman - 10/30/2024 10:36 AM EST Called [facility]. Their office has received this referral, their pool coordinator is currently working on this referral and will be calling patient to get scheduled. Gayathri Riggins [facility]02-03-2025 Telephone encounter Note* Telephone Encounter - Altagracia Downey - 10/29/2024 9:52 AM EST Records faxed to [facility]. [facility]01-31-2025 NoteHNO ID: [id number] Author: ALTAGRACIA REDDY RN Service: ? Author Type: Registered Nurse Type: Progress Notes Filed: 10/26/2024 15:59 Note Text: 1330 16Fr coudet cath inserted without difficulty following lidojet. Urine specimen obtained and taken for POC UA. 1353 BCG instilled and chowdhury removed. Pt going home to turn every 15 min and will hold for 2 HR then will urinate.[facility]01-31-20[facility] History of Present illness Narrative* Altagracia Reddy RN - 10/26/2024 3:34 PM EST 1330 16Fr coudet cath inserted without difficulty following lidojet. Urine specimen obtained and taken for POC UA. 1353 BCG instilled and chowdhury removed. Pt going home to turn every 15 min and will hold for 2 HR then will urinate. documented in this encounterTr[facility]01-31-2025 NoteHNO ID: [id number] Author: LUANA LE MA Service: ? Author Type: Cell Operator Type: Progress Notes Filed: 10/31/2024 12:57 Note Text: Back office UA test performed. Results entered in EventBoard and doctor notified. [facility] History of Present illness Narrative* Luana Le MA - 10/26/2024 2:50 PM EST Back office UA test performed. Results entered in Event[employer] and doctor notified. Luana Le MA documented in this encounterTr[facility]01-31-2025 NoteHNO ID: [id number] Author: NICHOLE GRIMES RN Service: ? Author Type: Registered Nurse Type: Progress Notes Filed: 10/26/2024 13:54 Note Text: ONCOLOGY PATIENT EDUCATION NOTE TOPIC: Chemotherapy, Medications: BCG patient and spouse here today for education for treatment of Bladder Cancer Anticipated/Scheduled start date: today READINESS TO LEARN: COGNITIVE ABILITY: Alert and oriented MOTIVATION TO LEARN: Interested FAMILY SUPPORT: High - Very involved in pt care INSTRUCTION PROVIDED TO: Patient and Spouse INSTRUCTION PROVIDED BY: Nurse Coordinator PATIENT LEARNS BEST BY: Multiple Methods FACTORS AFFECTING LEARNING: None PHYSICAL LIMITATIONS AFFECTING LEARNING: None LEARNING RESPONSE METHOD OF INSTRUCTION: Individual instruction Written instruction/Handouts Verbal instruction PATIENT/FAMILY RESPONSE: Verbalizes understanding of: CHEMOTHERAPY-Regimen, toxicity and side effects EQUIPMENT USE-Correct use of Equipment INFECTION MANAGEMENT-Signs and symptoms of an infection and importance of contacting the physician MEDICAL REGIMEN-Importance of following prescribed medical regimen MEDICATION PRESCRIBED-Accurate knowledge of prescribed medication prior to discharge MEDICATION ROUTE-Correct route for administration of the prescribed medication MEDICATION SIDE EFFECTS-Side effects associated with the medication that warrant a call to the physician PATIENT SAFETY PRINCIPLES SYMPTOM MANAGEMENT-Correct actions to take to manage symptoms associated with his/her disease/illness WORSENING CONDITION-Signs and symptoms of a worsening condition that warrant a call to the physician Information received as demonstrated by interest and questions FOLLOW UP PLAN: Patient instructed to call with any further issues Recommend - Recommend continued instruction and follow up as directed Follow up phone call. Contact information given. SUPPLEMENTAL MATERIAL: Written material was provided at this visit with the following information: - Chemotherapy education was provided by a pharmacist NO - Side effect management information was provided/discussed including but not limited to: abdominal discomfort, anemia, bowel habit changes, chest pain, diet, electrolyte disturbances, fatigue, headache, hypersensitivity reaction, infection, kidney toxicity, nausea/vomitting, neutropenia, rash, risk for DVT, shortness of breath, skin changes, thrombocytopenia, bladder inflammation, hematuria, bladder spasms YES - Provided important phone numbers and contacts during and after hours. YES - Provided information on symptoms that require immediate assistance. YES - Provided Chemotherapy when to call handouts YES - Preventing infection. YES - Treatment schedule and confirmation of appointment times. YES - Available support groups. NA - The importance of contraception during the course of chemotherapy YES - Neutropenic fever protocol discussed with patient, which included the importance of reporting any fever of 100.4F (38.0C) or greater to the healthcare team as noted on the provided wallet card and/or magnet. YES - Cancer Wellness Program Pamphlet. YES - [facility] [employer] Information. YES - Patient services information. YES -pt has had 6 BCG treatments prior to coming to our office. Time Spent: 20 minutes REFERRAL (RECOMMENDATION): N/A [facility] Grimes [facility] History of Present illness Narrative* Nichole Grimes RN - 10/26/2024 1:41 PM EST ONCOLOGY PATIENT EDUCATION NOTE TOPIC: Chemotherapy, Medications: BCG patient and spouse here today for education for treatment of Bladder Cancer Anticipated/Scheduled start date: today READINESS TO LEARN: COGNITIVE ABILITY: Alert and oriented MOTIVATION TO LEARN: Interested FAMILY SUPPORT: High - Very involved in pt care INSTRUCTION PROVIDED TO: Patient and Spouse INSTRUCTION PROVIDED BY: Nurse Coordinator PATIENT LEARNS BEST BY: Multiple Methods FACTORS AFFECTING LEARNING: None PHYSICAL LIMITATIONS AFFECTING LEARNING: None LEARNING RESPONSE METHOD OF INSTRUCTION: Individual instruction Written instruction/Handouts Verbal instruction PATIENT/FAMILY RESPONSE: Verbalizes understanding of: CHEMOTHERAPY-Regimen, toxicity and side effects EQUIPMENT USE-Correct use of Equipment INFECTION MANAGEMENT-Signs and symptoms of an infection and importance of contacting the physician MEDICAL REGIMEN-Importance of following prescribed medical regimen MEDICATION PRESCRIBED-Accurate knowledge of prescribed medication prior to discharge MEDICATION ROUTE-Correct route for administration of the prescribed medication MEDICATION SIDE EFFECTS-Side effects associated with the medication that warrant a call to the physician PATIENT SAFETY PRINCIPLES SYMPTOM MANAGEMENT-Correct actions to take to manage symptoms associated with his/her disease/illness WORSENING CONDITION-Signs and symptoms of a worsening condition that warrant a call to the physician Information received as demonstrated by interest and questions FOLLOW UP PLAN: Patient instructed to call with any further issues Recommend - Recommend continued instruction and follow up as directed Follow up phone call. Contact information given. SUPPLEMENTAL MATERIAL: Written material was provided at this visit with the following information: - Chemotherapy education was provided by a pharmacist NO - Side effect management information was provided/discussed including but not limited to: abdominaldiscomfort, anemia, bowel habit changes, chest pain, diet, electrolyte disturbances, fatigue, headache, hypersensitivity reaction, infection, kidney toxicity, nausea/vomitting, neutropenia, rash, risk for DVT, shortness of breath, skin changes, thrombocytopenia, bladder inflammation, hematuria, bladder spasms YES - Provided important phone numbers and contacts during and after hours. YES - Provided information on symptoms that require immediate assistance. YES - Provided Chemotherapy when to call handouts YES - Preventing infection. YES - Treatment schedule and confirmation of appointment times. YES - Available support groups. NA - The importance of contraception during the course of chemotherapy YES - Neutropenic fever protocol discussed with patient, which included the importance of reporting anyfever of 100.4F (38.0C) or greater to the healthcare team as noted on the provided wallet card and/or magnet. YES - Cancer Wellness Program Pamphlet. YES - [facility] Information. YES - Patient services information. YES -pt has had 6 BCG treatments prior to coming to our office. Time Spent: 20 minutes REFERRAL (RECOMMENDATION): N/A Nichole Grimes, RN documented in this encounterTr[facility] Telephone encounter Note * Telephone Encounter - Suleman Armijo - 10/26/2024 1:09 PM EST Patient to be referred to [facility] re: Liver cirrhosis on CT scan in December 2022. Adamaris: Information is ready for you. Thanks! Suleman Armijo [facility]01-31-2025 Instructions* Patient Instructions* Darwin Quinteros MD - 10/26/2024 1:01 PM EST Do treatment today and every week for 3 weeks Schedule intravesical BCG in 3 months F/u in 3 months documented in this encounterTr[facility]01-[facility] History of Present illness Narrative* Darwin Quinteros MD - 10/26/2024 1:00 PM EST Images from the original note were not included. PATIENT NAME: Venita Rosenberg [facility] NO.: [id number] ATTENDING PHYSICIAN: Darwin Quinteros MD DATE OF SERVICE: 10/26/[address] Jarad Valdivia [address] [facility] [address] thank you for referring Venita Rosenberg for an opinion regarding h/o bladder cancer. Some of the elements of this note have been copied from my previous progress note dated 10/19/24. All the information has been reviewed carefully. CHIEF COMPLAINT: Bladder cancer HPI: Venita Rosenberg is a 59 year old year old male with h/o bladder cancer diagnosed in 2011 s/p TURBT. TURBT (03/02/24) - high grade papillary urothelial carcinoma. Muscularis propria negative for invasion. S/p 6 weekly BCG treatments in Apr 2024. Prostate biopsy (09/04/24)- Benign prostate tissue with focal chronic inflammation. Last cystoscopy was in Aug 2024. Normal bladder. Doing well No major complaints. No smoking Occasional alcohol. 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 No current facility-administered medications for this visit. 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 Elevated prostate specific antigen (PSA) Hematuria Kidney stone Prostate nodule Renal atrophy PAST SURGICAL HISTORY Procedure Laterality Date CYSTOSCOPY x6 CYSTOSCOPY PAST SURGICAL HISTORY OF 03/01/2024 TURBT PAST SURGICAL HISTORY OF 12/22/2022 Transrectal needle biopsy of prostate PAST SURGICAL HISTORY OF 08/19/2015 Transrectal biopsy of prostate using ultrasound PAST SURGICAL HISTORY OF 05/30/2012 Cystoscopy with removal of ureteric stent PAST SURGICAL HISTORY OF 05/18/2012 Cystoscopy and transurethral resection of bladder tumor PAST SURGICAL HISTORY OF Tonsillectomy REMOVAL GALLBLADDER FAMILY HISTORY Problem Relation Age of Onset Breast Cancer Mother Cervical Cancer Mother Cervical Cancer Sister Breast Cancer Sister Social History Tobacco Use Smoking status: Former Types: Cigarettes Smokeless tobacco: Current Vaping Use Vaping status: Never Used Substance Use Topics Alcohol use: Never Drug use: Never REVIEW OF SYSTEMS GENERAL: No weight loss, malaise or fevers. No night sweats. HEENT: Negative for headaches, No changes in hearing or vision, no nose bleeds or other nasal problems. RESPIRATORY: Negative for cough, wheezing and shortness of breath CARDIOVASCULAR: Negative for chest pain, leg swelling and palpitations GI: Negative for abdominal discomfort, blood in stools or black stools and change in bowel habits : Negative for dysuria, frequency and incontinence MUSCULOSKELETAL: Negative for joint pain or swelling, back pain, and muscle pain. SKIN: Negative for lesions, rash, and itching. HEMATOLOGY/LYMPHOLOGY Negative for prolonged bleeding, bruising easily, and swollen nodes. NEURO: Negative for numbness or tingling of hands/feet. No weakness. PHYSICAL EXAMINATION: There were no vitals taken for this visit. There were no vitals taken for this visit. No data found for this vital: Wt General appearance:ECOG PERFORMANCE STATUS: 0- Fully active, able to carry on all pre-disease performance w/o restriction. Patient in NAD. Skin: Skin color, texture, turgor normal. No rashes or lesions. Eyes: Anicteric sclera. Pupils are equally round and reactive to light. Extraocular movements are intact. Breast: No palpable breast masses. No nipple change or discharge. Lymph Nodes: No cervical, supraclavicular, axillary or inguinal adenopathy. Oropharynx: Lips, mucosa, and tongue normal. Back: No pain to percussion. Negative SLR test Lungs clear to auscultation, No wheezing or rhonchi Heart: RRR without murmur, gallop, or rubs. Abdomen soft, non-tender. No masses, organomegaly Extremities: No deformities. No edema Neuro: Gait and speech normal. Reflexes normal and symmetric. Muscular strength intact. Sensation grossly intact. Rectal: Deferred : Deferred LABS: No results found for: GLUC , K , NA , CHLOR , CO2 , CREAT , BUN , ANION , CA , TPROT , ALB , TBILI , ALKPHOS , AST , ALT No results found for: WBC , RBC , HB , HCT , MCV , MCH , MCHC , RDWCV , PLT , MPV , NEUT , ABSNEUT , LYMPHP , ABSLYMPH , MONOP , ABSMONO , EOSINP , ABSEOSIN , BASOP , ABSBASO PATH: IMAGING: ASSESSMENT AND PLAN: Venita Rosenberg is a 59 year old year old male referred to us for h/o non muscle invasive bladder cancer. Liver cirrhosis on CT scan in December 2022. PS 0 - He underwent TURBT (03/02/24) - high grade papillary urothelial carcinoma. Muscularis propria negative for invasion. - S/p 6 weekly induction BCG treatments in Apr 2024. PLAN: - Proceed with maintenance weekly BCG treatments x 3. - Last cystoscopy was in Aug 2024. F/u with urology. - Refer to GI for liver cirrhosis. - Next maintenance BCG treatment is in January 2025. - Blood work today is unremarkable. - All his questions answered in detail - F/u in [address] Jarad Valdivia [address] [facility] [address] thank you for allowing me to participate in Venita Rosenberg care, if there are any questions or concerns please do not hesitate to contact me at the number below. I spent a total of 30 minutes on the date of the service which included preparing to see the patient, [id number] patient care, completing clinical documentation, obtaining and/or reviewing separately obtained history, performing a medically appropriate examination, counseling and educating the pat ient/family/caregiver, ordering medications, tests, or procedures, communicating with other HCPs (not separately reported), independently interpreting results (not separately reported), communicatingresults to the patient/family/caregiver, and care coordination (not separately reported). Darwin Quinteros MD. Hematology/Medical Oncology [facility] [place] [phone] CC: documented in this encounterTr[facility]01-[facility]-2025 NoteHNO ID: [id number] Author: DARWIN QUINTEROS MD Service: ? Author Type: Physician Type: Progress Notes Filed: 10/26/2024 13:11 Note Text: PATIENT NAME: Venita Rosenberg CLINIC NO.: [id number] ATTENDING PHYSICIAN: Darwin Quinteros MD DATE OF SERVICE: 10/26/[address] Jarad Valdivia [address] [facility] [address] thank you for referring Venita Rosenberg for an opinion regarding h/o bladder cancer. Some of the elements of this note have been copied from my previous progress note dated 10/19/24. All the information has been reviewed carefully. CHIEF COMPLAINT: Bladder cancer HPI: Venita Rosenberg is a 59 year old year old male with h/o bladder cancer diagnosed in 2011 s/p TURBT. TURBT (03/02/24) - high grade papillary urothelial carcinoma. Muscularis propria negative for invasion. S/p 6 weekly BCG treatments in Apr 2024. Prostate biopsy (09/04/24)- Benign prostate tissue with focal chronic inflammation. Last cystoscopy was in Aug 2024. Normal bladder. Doing well No major complaints. No smoking Occasional alcohol. 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 No current facility-administered medications for this visit. 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 Elevated prostate specific antigen (PSA) Hematuria Kidney stone Prostate nodule Renal atrophy PAST SURGICAL HISTORY Procedure Laterality Date CYSTOSCOPY x6 CYSTOSCOPY PAST SURGICAL HISTORY OF 03/01/2024 TURBT PAST SURGICAL HISTORY OF 12/22/2022 Transrectal needle biopsy of prostate PAST SURGICAL HISTORY OF 08/19/2015 Transrectal biopsy of prostate using ultrasound PAST SURGICAL HISTORY OF 05/30/2012 Cystoscopy with removal of ureteric stent PAST SURGICAL HISTORY OF 05/18/2012 Cystoscopy and transurethral resection of bladder tumor PAST SURGICAL HISTORY OF Tonsillectomy REMOVAL GALLBLADDER FAMILY HISTORY Problem Relation Age of Onset Breast Cancer Mother Cervical Cancer Mother Cervical Cancer Sister Breast Cancer Sister Social History Tobacco Use Smoking status: Former Types: Cigarettes Smokeless tobacco: Current Vaping Use Vaping status: Never Used Substance Use Topics Alcohol use: Never Drug use: Never REVIEW OF SYSTEMS GENERAL: No weight loss, malaise or fevers. No night sweats. HEENT: Negative for headaches, No changes in hearing or vision, no nose bleeds or other nasal problems. RESPIRATORY: Negative for cough, wheezing and shortness of breath CARDIOVASCULAR: Negative for chest pain, leg swelling and palpitations GI: Negative for abdominal discomfort, blood in stools or black stools and change in bowel habits : Negative for dysuria, frequency and incontinence MUSCULOSKELETAL: Negative for joint pain or swelling, back pain, and muscle pain. SKIN: Negative for lesions, rash, and itching. HEMATOLOGY/LYMPHOLOGY Negative for prolonged bleeding, bruising easily, and swollen nodes. NEURO: Negative for numbness or tingling of hands/feet. No weakness. PHYSICAL EXAMINATION: There were no vitals taken for this visit. There were no vitals taken for this visit. No data found for this vital: Wt General appearance:ECOG PERFORMANCE STATUS: 0- Fully active, able to carry on all pre-disease performance w/o restriction. Patient in NAD. Skin: Skin color, texture, turgor normal. No rashes or lesions. Eyes: Anicteric sclera. Pupils are equally round and reactive to light. Extraocular movements are intact. Breast: No palpable breast masses. No nipple change or discharge. Lymph Nodes: No cervical, supraclavicular, axillary or inguinal adenopathy. Oropharynx: Lips, mucosa, and tongue normal. Back: No pain to percussion. Negative SLR test Lungs clear to auscultation, No wheezing or rhonchi Heart: RRR without murmur, gallop, or rubs. Abdomen soft, non-tender. No masses, organomegaly Extremities: No deformities. No edema Neuro: Gait and speech normal. Reflexes normal and symmetric. Muscular strength intact. Sensation grossly intact. Rectal: Deferred : Deferred LABS: No results found for: GLUC , K , NA , CHLOR , CO2 , CREAT , BUN , ANION , CA , TPROT , ALB , TBILI , ALKPHOS , AST , ALT No results found for: WBC , RBC , HB , HCT , MCV , MCH , MCHC , RDWCV , PLT , MPV , NEUT , ABSNEUT , LYMPHP , ABSLYMPH , MONOP , ABSMONO , EOSINP , ABSEOSIN , BASOP , ABSBASO PATH: IMAGING: ASSESSMENT AND PLAN: Venita Rosenberg is a 59 year old year old male referred to us for h/o non muscle invasive bladder cancer. Liver cirrhosis on CT scan in December 2022. PS 0 - He underwent TURBT ( (more content not included)...[facility] 10-19-2024 Telephone encounter Note* Telephone Encounter - Darwin Quinteros MD - 10/19/2024 4:17 PM EST Please load maintenance BCG treatments weekly x 3, starting next week in the [place]. Thank you [facility] Work Phone: [id number] Miscellaneous Notes* Telephone Encounter - Darwin Quinteros MD - 10/19/2024 4:17 PM EST Please load maintenance BCG treatments weekly x 3, starting next week in the [place]. Thank you [facility] Instructions* Patient Instructions* Darwin Quinteros MD - 10/19/2024 4:10 PM EST Chemo teach for intravesical BCG Schedule intravesical BCG weekly x 3, starting next week F/u in 1 week [facility] History of Present illness Narrative* Darwin Quinteros MD - 10/19/2024 4:00 PM EST Images from the original note were not included. PATIENT NAME: Venita Rosenberg CLINIC NO.: [id number] ATTENDING PHYSICIAN: Darwin Quinteros MD DATE OF SERVICE: October 19, [address] Jarad Valdivia [address] [facility] [address] thank you for referring Venita Rosenberg for an opinion regarding h/o bladder cancer. CHIEF COMPLAINT: Bladder cancer HPI: Venita Rosenberg is a 59 year old year old male with h/o bladder cancer diagnosed in 2011 s/p TURBT. TURBT (03/02/24) - high grade papillary urothelial carcinoma. Muscularis propria negative for invasion. S/p 6 weekly BCG treatments in Apr 2024. Prostate biopsy (09/04/24)- Benign prostate tissue with focal chronic inflammation. Last cystoscopy was in Aug 2024. Normal bladder. Doing well No major complaints. No smoking Occasional alcohol. 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 No current outpatient medications on file. No current facility-administered medications for this visit. ALLERGIES Not on File No past medical history on file. No past surgical history on file. No family history on file. REVIEW OF SYSTEMS GENERAL: No weight loss, malaise or fevers. No night sweats. HEENT: Negative for headaches, No changes in hearing or vision, no nose bleeds or other nasal problems. RESPIRATORY: Negative for cough, wheezing and shortness of breath CARDIOVASCULAR: Negative for chest pain, leg swelling and palpitations GI: Negative for abdominal discomfort, blood in stools or black stools and change in bowel habits : Negative for dysuria, frequency and incontinence MUSCULOSKELETAL: Negative for joint pain or swelling, back pain, and muscle pain. SKIN: Negative for lesions, rash, and itching. HEMATOLOGY/LYMPHOLOGY Negative for prolonged bleeding, bruising easily, and swollen nodes. NEURO: Negative for numbness or tingling of hands/feet. No weakness. PHYSICAL EXAMINATION: There were no vitals taken for this visit. There were no vitals taken for this visit. No data found for this vital: Wt General appearance:ECOG PERFORMANCE STATUS: 0- Fully active, able to carry on all pre-disease performance w/o restriction. Patient in NAD. Skin: Skin color, texture, turgor normal. No rashes or lesions. Eyes: Anicteric sclera. Pupils are equally round and reactive to light. Extraocular movements are intact. Breast: No palpable breast masses. No nipple change or discharge. Lymph Nodes: No cervical, supraclavicular, axillary or inguinal adenopathy. Oropharynx: Lips, mucosa, and tongue normal. Back: No pain to percussion. Negative SLR test Lungs clear to auscultation, No wheezing or rhonchi Heart: RRR without murmur, gallop, or rubs. Abdomen soft, non-tender. No masses, organomegaly Extremities: No deformities. No edema Neuro: Gait and speech normal. Reflexes normal and symmetric. Muscular strength intact. Sensation grossly intact. Rectal: Deferred : Deferred LABS: No results found for: GLUC , K , NA , CHLOR , CO2 , CREAT , BUN , ANION , CA , TPROT , ALB , TBILI , ALKPHOS , AST , ALT No results found for: WBC , RBC , HB , HCT , MCV , MCH , MCHC , RDWCV , PLT , MPV , NEUT , ABSNEUT , LYMPHP , ABSLYMPH , MONOP , ABSMONO , EOSINP , ABSEOSIN , BASOP , ABSBASO PATH: IMAGING: ASSESSMENT AND PLAN: Venita Rosenberg is a 59 year old year old male referred to us for h/o non muscle invasive bladder cancer. Liver cirrhosis on CT scan in December 2022. PS 0 PLAN: - He underwent TURBT (03/02/24) - high grade papillary urothelial carcinoma. Muscularis propria negative for invasion. S/p 6 weekly BCG treatments in Apr 2024. - We will start him on maintenance weekly BCG treatments x 3. - Last cystoscopy was in Aug 2024 - Check CBC CMP - All his questions answered in detail - F/u in [address] Jarad Valdivia [address] [facility] [address] thank you for allowing me to participate in Venita Rosenberg care, if there are any questions or concerns please do not hesitate to contact me at the number below. I spent a total of 60 minutes on the date of the service which included preparing to see the patient, [id number] patient care, completing clinical documentation, obtaining and/or reviewing separately obtained history, performing a medically appropriate examination, counseling and educating the pat ient/family/caregiver, ordering medications, tests, or procedures, communicating with other HCPs (not separately reported), independently interpreting results (not separately reported), communicatingresults to the patient/family/caregiver, and care coordination (not separately reported). Darwin Quinteros MD. Hematology/Medical Oncology [facility] [place] [phone] CC: documented in this [facility]Tr[facility]-24-[facility]25 NoteHNO ID: [id number] Author: DARWIN QUINTEROS MD Service: ? Author Type: Physician Type: Progress Notes Filed: 10/19/2024 16:21 Note Text: PATIENT NAME: Venita Rosenberg [facility] NO.: [id number] ATTENDING PHYSICIAN: Darwin Quinteros MD DATE OF SERVICE: October 19, [address] Jarad Valdivia [address] [place] [address] thank you for referring Venita Rosenberg for an opinion regarding h/o bladder cancer. CHIEF COMPLAINT: Bladder cancer HPI: Venita Rosenberg is a 59 year old year old male with h/o bladder cancer diagnosed in 2011 s/p TURBT. TURBT (03/02/24) - high grade papillary urothelial carcinoma. Muscularis propria negative for invasion. S/p 6 weekly BCG treatments in Apr 2024. Prostate biopsy (09/04/24)- Benign prostate tissue with focal chronic inflammation. Last cystoscopy was in Aug 2024. Normal bladder. Doing well No major complaints. No smoking Occasional alcohol. 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 No current outpatient medications on file. No current facility-administered medications for this visit. ALLERGIES Not on File No past medical history on file. No past surgical history on file. No family history on file. REVIEW OF SYSTEMS GENERAL: No weight loss, malaise or fevers. No night sweats. HEENT: Negative for headaches, No changes in hearing or vision, no nose bleeds or other nasal problems. RESPIRATORY: Negative for cough, wheezing and shortness of breath CARDIOVASCULAR: Negative for chest pain, leg swelling and palpitations GI: Negative for abdominal discomfort, blood in stools or black stools and change in bowel habits : Negative for dysuria, frequency and incontinence MUSCULOSKELETAL: Negative for joint pain or swelling, back pain, and muscle pain. SKIN: Negative for lesions, rash, and itching. HEMATOLOGY/LYMPHOLOGY Negative for prolonged bleeding, bruising easily, and swollen nodes. NEURO: Negative for numbness or tingling of hands/feet. No weakness. PHYSICAL EXAMINATION: There were no vitals taken for this visit. There were no vitals taken for this visit. No data found for this vital: Wt General appearance:ECOG PERFORMANCE STATUS: 0- Fully active, able to carry on all pre-disease performance w/o restriction. Patient in NAD. Skin: Skin color, texture, turgor normal. No rashes or lesions. Eyes: Anicteric sclera. Pupils are equally round and reactive to light. Extraocular movements are intact. Breast: No palpable breast masses. No nipple change or discharge. Lymph Nodes: No cervical, supraclavicular, axillary or inguinal adenopathy. Oropharynx: Lips, mucosa, and tongue normal. Back: No pain to percussion. Negative SLR test Lungs clear to auscultation, No wheezing or rhonchi Heart: RRR without murmur, gallop, or rubs. Abdomen soft, non-tender. No masses, organomegaly Extremities: No deformities. No edema Neuro: Gait and speech normal. Reflexes normal and symmetric. Muscular strength intact. Sensation grossly intact. Rectal: Deferred : Deferred LABS: No results found for: GLUC , K , NA , CHLOR , CO2 , CREAT , BUN , ANION , CA , TPROT , ALB , TBILI , ALKPHOS , AST , ALT No results found for: WBC , RBC , HB , HCT , MCV , MCH , MCHC , RDWCV , PLT , MPV , NEUT , ABSNEUT , LYMPHP , ABSLYMPH , MONOP , ABSMONO , EOSINP , ABSEOSIN , BASOP , ABSBASO PATH: IMAGING: ASSESSMENT AND PLAN: Venita Rosenberg is a 59 year old year old male referred to us for h/o non muscle invasive bladder cancer. Liver cirrhosis on CT scan in December 2022. PS 0 PLAN: - He underwent TURBT (03/02/24) - high grade papillary urothelial carcinoma. Muscularis propria negative for invasion. S/p 6 weekly BCG treatments in Apr 2024. - We will start him on maintenance weekly BCG treatments x 3. - Last cystoscopy was in Aug 2024 - Check CBC CMP - All his questions answered in detail - F/u in [address] Jarad Valdivia [address] [place] [address] thank you for allowing me to participate in Venita ChanceJorge Alberto Rosenberg [facility] [place], if there are any questions or concerns please do not hesitate to contact me at the number below. I spent a total of 60 minutes on the date of the service which included preparing to see the patient, [id number] patient care, completing clinical documentation, obtaining and/or reviewing separately obtained history, performing a medically appropriate examination, counseling and educating the patient/family/caregiver, ordering medications, tests, or procedures, communicating with other HCPs (not separately reported), independently interpreting results (not separately reported), communicating results to the patient/family/caregiver, and care coordination (not separately reported). Darwin Quinteros MD. Hematology/Medical Oncology [facility] [address] [phone] CC:[facility]12-23-2024 Hospital Discharge instructions Patient Education 09/17/2024 09:22:26 Cystoscopy Cystoscopy Cystoscopy is a procedure that is used to help diagnose and sometimes treat conditions that affect the lower urinary tract. The lower urinary tract includes the bladder and the urethra. The urethra is the tube that drains urine from the bladder. Cystoscopy is done using a thin, tube-shaped instrument with a light and camera at the end (cystoscope). The cystoscope may be hard or flexible, depending on the goal of the procedure. The cystoscope is inserted through the urethra, into the bladder. Cystoscopy may be recommended if you have: Urinary tract infections that keep coming back. Blood in the urine (hematuria). An inability to control when you urinate (urinary incontinence) or an overactive bladder. Unusual cells found in a urine sample. A blockage in the urethra, such as a urinary stone. Painful urination. An abnormality in the bladder found during an intravenous pyelogram (IVP) or CT scan. Cystoscopy may also be done to remove a sample of tissue to be examined under a microscope (biopsy). Tell a health care provider about: Any allergies you have. All medicines you are taking, including vitamins, herbs, eye drops, creams, and zvgh-ggd-pgnyoyh medicines. Any problems you or family members have had with anesthetic medicines. Any blood disorders you have. Any surgeries you have had. Any medical conditions you have. Whether you are or may be . What are the risks? Generally, this is a safe procedure. However, problems may occur, including: Infection. Bleeding. Allergic reactions to medicines. Damage to other structures or organs. What happens before the procedure? Medicines Ask your health care provider about: Changing or stopping your regular medicines. This is especially important if you are taking diabetes medicines or blood thinners. Taking medicines such as aspirin and ibuprofen. These medicines can thin your blood. Do not take these medicines unless your health care provider tells you to take them. Taking wicm-yhg-pfajqoo medicines, vitamins, herbs, and supplements. Tests You may have an exam or testing, such as: X-rays of the bladder, urethra, or kidneys. CT scan of the abdomen or pelvis. Urine tests to check for signs of infection. General instructions Follow instructions from your health care provider about eating or drinking restrictions. Ask your health care provider what steps will be taken to help prevent infection. These steps may include: ?Washing skin with a germ-killing soap. ?Taking antibiotic medicine. Plan to have a responsible adult take you home from the hospital or clinic. What happens during the procedure? You will be given one or more of the following: ?A medicine to help you relax (sedative). ?A medicine to numb the area (local anesthetic). The area around the opening of your urethra will be cleaned. The cystoscope will be passed through your urethra into your bladder. Germ-free (sterile) fluid will flow through the cystoscope to fill your bladder. The fluid will stretch your bladder so that your health care provider can clearly examine your bladder frye. Your doctor will look at the urethra and bladder. Your doctor may take a biopsy or remove stones. The cystoscope will be removed, and your bladder will be emptied. The procedure may vary among health care providers and hospitals. What can I expect after the procedure? After the procedure, it is common to have: Some soreness or pain in your abdomen and urethra. Urinary symptoms. These include: ?Mild pain or burning when you urinate. Pain should stop within a few minutes after you urinate. This may last for up to 1 week. ?A small amount of blood in your urine for several days. ?Feeling like you need to urinate but producing only a small amount of urine. Follow these instructions at home: Medicines Take zvho-qnc-luibmas and prescription medicines only as told by your health care provider. If you were prescribed an antibiotic medicine, take it as told by your health care provider. Do notstop taking the antibiotic even if you start to feel better. General instructions Return to your normal activities as told by your health care provider. Ask your health care provider what activities are safe for you. If you were given a sedative during the procedure, it can affect you for several hours. Do not drive or operate machinery until your health care provider says that it is safe. Watch for any blood in your urine. If the amount of blood in your urine increases, call your healthcare provider. Follow instructions from your health care provider about eating or drinking restrictions. If a tissue sample was removed for testing (biopsy) during your procedure, it is up to you to get your test results. Ask your health care provider, or the department that is doing the test, when yourresults will be ready. Drink enough fluid to keep your urine pale yellow. Keep all follow-up visits. This is important. Contact a health care provider if: You have pain that gets worse or does not get better with medicine, especially pain when you urinate. You have trouble urinating. You have more blood in your urine. Get help right away if: You have blood clots in your urine. You have abdominal pain. You have a fever or chills. You are unable to urinate. Summary Cystoscopy is a procedure that is used to help diagnose and sometimes treat conditions that affect the lower urinary tract. Cystoscopy is done using a thin, tube-shaped instrument with a light and camera at the end. After the procedure, it is common to have some soreness or pain in your abdomen and urethra. Watch for any blood in your urine. If the amount of blood in your urine increases, call your healthcare provider. If you were prescribed an antibiotic medicine, take it as told by your health care provider. Do notstop taking the antibiotic even if you start to feel better. This information is not intended to replace advice given to you by your health care provider. Make sure you discuss any questions you have with your health care provider. Document Revised: 05/26/2022 Document Reviewed: 04/24/2021 [employer] Patient Education 2023 [employer]. 09/17/2024 09:22:21 Prostate Cancer Screening Prostate Cancer Screening Prostate cancer screening is testing that is done to check for the presence of prostate cancer in men. The prostate gland is a walnut-sized gland that is located below the bladder and in front of therectum in males. The function of the prostate is to add fluid to semen during ejaculation. Prostatecancer is one of the most common types of cancer in men. Who should have prostate cancer screening? Screening recommendations vary based on age and other risk factors, as well as between the professional organizations who make the recommendations. In general, screening is recommended if: You are age 50 to 70 and have an average risk for prostate cancer. You should talk with your healthcare provider about your need for screening and how often screening should be done. Because most prostate cancers are slow growing and will not cause , screening in this age group is generally reserved for men who have a 10- to 15-year life expectancy. You are younger than age 50, and you have these risk factors: ?Having a father, brother, or uncle who has been diagnosed with prostate cancer. The risk is higherif your family member's cancer occurred at an early age or if you have multiple family members withprostate cancer at an early age. ?Being a male who is Black or is of Ronald or sub-Saharan descent. In general, screening is not recommended if: You are younger than age 40. You are between the ages of 40 and 49 and you have no risk factors. You are 70 years of age or older. At this age, the risks that screening can cause are greater than the benefits that it may provide. If you are at high risk for prostate cancer, your health care provider may recommend that you have screenings more often or that you start screening at a younger age. How is screening for prostate cancer done? The recommended prostate cancer screening test is a blood test called the prostate-specific antigen(PSA) test. PSA is a protein that is made in the prostate. As you age, your prostate naturally produces more PSA. Abnormally high PSA levels may be caused by: Prostate cancer. An enlarged prostate that is not caused by cancer (benign prostatic hyperplasia, or BPH). This condition is very common in older men. A prostate gland infection (prostatitis) or urinary tract infection. Certain medicines such as male hormones (like testosterone) or other medicines that raise testosterone levels. A rectal exam may be done as part of prostate cancer screening to help provide information about the size of your prostate gland. When a rectal exam is performed, it should be done after the PSA level is drawn to avoid any effect on the results. Depending on the PSA results, you may need more tests, such as: A physical exam to check the size of your prostate gland, if not done as part of screening. Blood and imaging tests. A procedure to remove tissue samples from your prostate gland for testing (biopsy). This is the only way to know for certain if you have prostate cancer. What are the benefits of prostate cancer screening? Screening can help to identify cancer at an early stage, before symptoms start and when the cancer can be treated more easily. There is a small chance that screening may lower your risk of dying from prostate cancer. The chance is small because prostate cancer is a slow-growing cancer, and most men with prostate cancer from a different cause. What are the risks of prostate cancer screening? The main risk of prostate cancer screening is diagnosing and treating prostate cancer that would never have caused any symptoms or problems. This is called overdiagnosisand overtreatment. PSA screening cannot tell you if your PSA is high due to cancer or a different cause. A prostate biopsy is the only procedure to diagnose prostate cancer. Even the results of a biopsy may not tell you if your cancer needs to be treated. Slow-growing prostate cancer may not need any treatment other than monitoring, so diagnosing and treating it may cause unnecessary stress or other side effects. Questions to ask your health care provider When should I start prostate cancer screening? What is my risk for prostate cancer? How often do I need screening? What type of screening tests do I need? How do I get my test results? What do my results mean? Do I need treatment? Where to find more information The [employer]: www.cancer.org [employer]: www.auanet.org Contact a health care provider if: You have difficulty urinating. You have pain when you urinate or ejaculate. You have blood in your urine or semen. You have pain in your back or in the area of your prostate. Summary Prostate cancer is a common type of cancer in men. The prostate gland is located below the bladder and in front of the rectum. This gland adds fluid to semen during ejaculation. Prostate cancer screening may identify cancer at an early stage, when the cancer can be treated more easily and is less likely to have spread to other areas of the body. The prostate-specific antigen (PSA) test is the recommended screening test for prostate cancer, butit has associated risks. Discuss the risks and benefits of prostate cancer screening with your health care provider. If you are age 70 or older, the risks that screening can cause are greater than the benefits that it may provide. This information is not intended to replace advice given to you by your health care provider. Make sure you discuss any questions you have with your health care provider. Document Revised: 03/08/2022 Document Reviewed: 03/08/2022 [employer] Patient Education 2023 [employer]. Follow Up Care 06/11/2024 10:53:23 With:SHEA JARA, Jarad Hendrickson, URL Address: [facility] [address], [place] [address] [phone] When: Unknown [facility] [place] 12-23-2024 NotePatient Education Oncology Prostate Cancer Screening Prostate cancer screening is testing that is done to check for the presence of prostate cancer in men. The prostate gland is a walnut-sized gland that is located below the bladder and in front of therectum in males. The function of the prostate is to add fluid to semen during ejaculation. Prostatecancer is one of the most common types of cancer in men. Who should have prostate cancer screening? Screening recommendations vary based on age and other risk factors, as well as between the professional organizations who make the recommendations. In general, screening is recommended if: ??? You are age 50 to 70 and have an average risk for prostate cancer. You should talk with your health care provider about your need for screening and how often screening should be done. Because most prostate cancers are slow growing and will not cause , screening in this age group is generally reserved for men who have a 10- to 15-year life expectancy. ??? You are younger than age 50, and you have these risk factors: ? Having a father, brother, or uncle who has been diagnosed with prostate cancer. The risk is higher if your family member's cancer occurred at an early age or if you have multiple family members with prostate cancer at an early age. ? Being a male who is Black or is of Ronald or sub-Saharan descent. In general, screening is not recommended if: ??? You are younger than age 40. ??? You are between the ages of 40 and 49 and you have no risk factors. ??? You are 70 years of age or older. At this age, the risks that screening can cause are greater than the benefits that it may provide. If you are at high risk for prostate cancer, your health care provider may recommend that you have screenings more often or that you start screening at a younger age. How is screening for prostate cancer done? The recommended prostate cancer screening test is a blood test called the prostate-specific antigen(PSA) test. PSA is a protein that is made in the prostate. As you age, your prostate naturally produces more PSA. Abnormally high PSA levels may be caused by: ??? Prostate cancer. ??? An enlarged prostate that is not caused by cancer (benign prostatic hyperplasia, or BPH). This condition is very common in older men. ??? A prostate gland infection (prostatitis) or urinary tract infection. ??? Certain medicines such as male hormones (like testosterone) or other medicines that raise testosterone levels. A rectal exam may be done as part of prostate cancer screening to help provide information about the size of your prostate gland. When a rectal exam is performed, it should be done after the PSA level is drawn to avoid any effect on the results. Depending on the PSA results, you may need more tests, such as: ??? A physical exam to check the size of your prostate gland, if not done as part of screening. ??? Blood and imaging tests. ??? A procedure to remove tissue samples from your prostate gland for testing (biopsy). This is theonly way to know for certain if you have prostate cancer. What are the benefits of prostate cancer screening? Screening can help to identify cancer at an early stage, before symptoms start and when the cancer can be treated more easily. ??? There is a small chance that screening may lower your risk of dying from prostate cancer. The chance is small because prostate cancer is a slow-growing cancer, and most men with prostate cancer from a different cause. What are the risks of prostate cancer screening? The main risk of prostate cancer screening is diagnosing and treating prostate cancer that would never have caused any symptoms or problems. This is called overdiagnosisand overtreatment. PSA screening cannot tell you if your PSA is high due to cancer or a different cause. A prostate biopsy is the only procedure to diagnose prostate cancer. Even the results of a biopsy may not tell you if your cancer needs to be treated. Slow-growing prostate cancer may not need any treatment other than monitoring, so diagnosing and treating it may cause unnecessary stress or other side effects. Questions to ask your health care provider ??? When should I start prostate cancer screening? What is my risk for prostate cancer? How often do I need screening? What type of screening tests do I need? How do I get my test results? What do my results mean? Do I need treatment? Where to find more information ??? The [place] [employer]: www.cancer.org ??? [employer]: www.auanet.org Contact a health care provider if: ??? You have difficulty urinating. ??? You have pain when you urinate or ejaculate. ??? You have blood in your urine or semen. ??? You have pain in your back or in the area of your prostate. Summary ??? Prostate cancer is a common type of cancer in men. The prostate gland (more content not included)...[facility]08-30-2024 Hospital Discharge instructions Patient Education 05/25/2024 10:41:15 Chemotherapy Chemotherapy Chemotherapy is a cancer treatment. It uses medicines to slow down or stop the growth of cancer. You may have chemotherapy to: Cure your cancer. Prevent the cancer from growing or spreading (metastasizing). Ease symptoms and improve your quality of life (palliative care). Improve the effects of radiation treatment. Shrink a tumor before surgery. Rid the body of cancer cells that remain after having a tumor surgically removed. The length of chemotherapy treatment depends on many factors, including: The type and stage of your cancer. How you respond to the chemotherapy. Your side effects. What are the risks? Generally, this is a safe treatment. However, problems may occur, including: Infection. Bleeding. Allergic reactions to medicines. You may have side effects from chemotherapy. What side effects you have depend on a variety of factors, including: The type of chemotherapy medicine used. Your dosage. How long the medicine is used for. Your overall health. What happens before treatment? You will meet with your cancer care team to discuss: ?Your treatment schedule. ?How your chemotherapy medicine will be given. ?Common side effects and how to prevent or treat them, which may include being given medicines. You may have blood tests. What happens during treatment? Chemotherapy may be given continuously over time, or it may be given in cycles. Some common ways chemotherapy may be given include: As a pill or capsule. As a shot (injection). As a skin (topical) cream. As a special wafer that is put in your body where the cancer is. The wafer contains chemotherapy medicine. As an injection into the cerebrospinal fluid (CSF) in the brain or spinal cord (intraventricular orintrathecal chemotherapy). As an installation into the intraperitoneal (abdominal) cavity. Through a small, thin tube (catheter). There are different kinds of catheters. You might have one that: ?Goes into a vein (intravenous catheter). An IV may be inserted into a vein each time you get a treatment or it can be used over several days. ?Goes into a vein in your neck that leads to a large vein close to your heart (non-tunneled catheter). This catheter has a risk of infection, so it is used for only a short time. ?Goes into a vein near your elbow (PICC line) and passes through into a large vein in your chest orupper arm. This may be used for weeks or months. ?Connects to an implanted device (port) that is inserted under the skin of your chest (port catheter). The port is attached to a catheter that is passed through into a large vein in your chest or upper arm. The port may stay in place for months or years. ?Goes through the skin of your chest and into a large vein close to your heart (tunneled catheter).This catheter may stay in place for months or years. While you are receiving your chemotherapy medicine, your cancer care team may monitor your blood pressure, heart rate, breathing rate, and blood oxygen level (vital signs) and watch for any problems. Some types of chemotherapy medicine are given only one time. Others are given for months, years, orfor life. What can I expect after treatment? After chemotherapy, you may have side effects, such as: Nausea and vomiting. Appetite loss or a change in the way foods taste. Constipation or diarrhea. Fatigue. Increased risk of infections, bruising, or bleeding. Hair loss. Mouth or throat sores. Tingling, pain, or numbness in the hands and feet. Dry, sensitive, itchy, or sore skin. Memory changes. Follow these instructions at home: General instructions If you get chemotherapy through an IV, PICC line, or port, check the site every day for signs of infection. Check for redness, swelling, pain, fluid, or warmth. Wash your hands frequently with soap and water. Scrub your hands for at least 20 seconds. If soap and water are not available, use an alcohol based hand military analyst that contains at least 60% alcohol. Have other members of your household wash their hands often. Chemotherapy medicines leave the body through urine or stool (feces), but they can also be present in other body fluids including vomit, blood, vaginal fluids, and semen for up to 48 hours after receiving the medication. You must carefully follow some safety precautions to prevent harm to others while you are taking these medicines: ?Wash laundry that comes in contact with your body fluids separately. This includes clothing, sheets, and towels. Machine wash laundry twice in hot water with regular laundry detergent. ?Use a condom during vaginal, anal, and oral sex while you are taking chemotherapy medicines. Thesemedicines can stay active in your body for at least 48 hours after you receive treatment. Ask your health care provider how long you should take precautions. ?Practice good bathroom hygiene: ?If possible, use a toilet separate from others in the household. ?Always sit when using the toilet. Close the toilet seat lid before you flush. ?Wash your hands thoroughly with soap and water for at least 20 seconds after each time you use thetoilet. Keep all follow-up visits. This is important. Eating and drinking Talk with a dietitian about what you should eat and drink during cancer treatment. Always wash fresh fruits and vegetables well before eating them. Drink enough fluid to keep your urine pale yellow. Medicines Take dipw-kbv-ugjdrsp and prescription medicines only as told by your health care provider. Talk with your health care provider about all medicines, vitamins, and herbal or dietary supplements that you take. Some vitamins and supplements should not be taken during chemotherapy because they may interfere with the treatment. Activity Get plenty of rest. Get regular exercise such as walking, gentle yoga, or yumi chi. Return to your normal activities as told by your health care provider. Ask your health care provider what activities are safe for you. Contact a health care provider if: You have soreness or redness at your injection, IV, or catheter site. You have a headache or stiff neck. You have a cough, cold, or flu-like symptoms. You have painful, frequent, foul-smelling, or bloody urine. You have constipation, diarrhea, or bloody stool. You have uncontrolled nausea or vomiting. You cannot eat because of mouth or throat pain. You have a skin rash or are bleeding or bruising easily or often. Get help right away if: You have a fever. This is important. You have more redness, swelling, pain, fluid, or warmth near your injection, IV, or catheter site. You have bleeding that does not stop. You have a seizure. You have chest pain or difficulty breathing. These symptoms may be an emergency. Get help right away. Call 911. Do not wait to see if the symptoms will go away. Do not drive yourself to the hospital. Summary Chemotherapy is a way to treat cancer. It uses medicines to slow down or stop the growth of cancer. Before treatment, you and your cancer care team will discuss common side effects and how to manage them. The way that you will get chemotherapy medicines depends on your condition and the type of cancer being treated. Take wybu-snq-yxzxvgc and prescription medicines only as told by your health care provider. This information is not intended to replace advice given to you by your health care provider. Make sure you discuss any questions you have with your health care provider. Document Revised: 07/06/2022 Document Reviewed: 07/06/2022 [employer] Patient Education 2022 [employer]. Follow Up Care 03/23/2024 08:51:55 With:SHEA JARA, Jarad Hendrickson, URL Address: [facility] [address] [place] [address] [phone] When: Unknown [facility] 08-30-2024 NotePatient Education Oncology Chemotherapy Chemotherapy is a cancer treatment. It uses medicines to slow down or stop the growth of cancer. You may have chemotherapy to: ? Cure your cancer. ? Prevent the cancer from growing or spreading (metastasizing). ? Ease symptoms and improve your quality of life (palliative care). ? Improve the effects of radiation treatment. ? Shrink a tumor before surgery. ? Rid the body of cancer cells that remain after having a tumor surgically removed. The length of chemotherapy treatment depends on many factors, including: ? The type and stage of your cancer. ? How you respond to the chemotherapy. ? Your side effects. What are the risks? Generally, this is a safe treatment. However, problems may occur, including: ? Infection. ? Bleeding. ? Allergic reactions to medicines. You may have side effects from chemotherapy. What side effects you have depend on a variety of factors, including: ? The type of chemotherapy medicine used. ? Your dosage. ? How long the medicine is used for. ? Your overall health. What happens before treatment? ? You will meet with your cancer care team to discuss: ? Your treatment schedule. ? How your chemotherapy medicine will be given. ? Common side effects and how to prevent or treat them, which may include being given medicines. ? You may have blood tests. What happens during treatment? Chemotherapy may be given continuously over time, or it may be given in cycles. Some common ways chemotherapy may be given include: ? As a pill or capsule. ? As a shot (injection). ? As a skin (topical) cream. ? As a special wafer that is put in your body where the cancer is. The wafer contains chemotherapy medicine. ? As an injection into the cerebrospinal fluid (CSF) in the brain or spinal cord (intraventricular or intrathecal chemotherapy). ? As an installation into the intraperitoneal (abdominal) cavity. ? Through a small, thin tube (catheter). There are different kinds of catheters. You might have onethat: ? Goes into a vein (intravenous catheter). An IV may be inserted into a vein each time you get a treatment or it can be used over several days. ? Goes into a vein in your neck that leads to a large vein close to your heart (non-tunneled catheter). This catheter has a risk of infection, so it is used for only a short time. ? Goes into a vein near your elbow (PICC line) and passes through into a large vein in your chest or upper arm. This may be used for weeks or months. ? Connects to an implanted device (port) that is inserted under the skin of your chest (port catheter). The port is attached to a catheter that is passed through into a large vein in your chest or upper arm. The port may stay in place for months or years. ? Goes through the skin of your chest and into a large vein close to your heart (tunneled catheter). This catheter may stay in place for months or years. While you are receiving your chemotherapy medicine, your cancer care team may monitor your blood pressure, heart rate, breathing rate, and blood oxygen level (vital signs) and watch for any problems. Some types of chemotherapy medicine are given only one time. Others are given for months, years, orfor life. What can I expect after treatment? After chemotherapy, you may have side effects, such as: ? Nausea and vomiting. ? Appetite loss or a change in the way foods taste. ? Constipation or diarrhea. ? Fatigue. ? Increased risk of infections, bruising, or bleeding. ? Hair loss. ? Mouth or throat sores. ? Tingling, pain, or numbness in the hands and feet. ? Dry, sensitive, itchy, or sore skin. ? Memory changes. Follow these instructions at home: General instructions ? If you get chemotherapy through an IV, PICC line, or port, check the site every day for signs of infection. Check for redness, swelling, pain, fluid, or warmth. ? Wash your hands frequently with soap and water. Scrub your hands for at least 20 seconds. If soapand water are not available, use an alcohol based hand military analyst that contains at least 60% alcohol. Have other members of your household wash their hands often. ? Chemotherapy medicines leave the body through urine or stool (feces), but they can also be present in other body fluids including vomit, blood, vaginal fluids, and semen for up to 48 hours after receiving the medication. You must carefully follow some safety precautions to prevent harm to others while you are taking these medicines: ? Wash laundry that comes in contact with your body fluids separately. This includes clothing, sheets, and towels. Machine wash laundry twice in hot water with regular laundry detergent. ? Use a condom during vaginal, anal, and oral sex while you are taking chemotherapy medicines. These medicines can stay active in your body for at least 48 hours after you receive treatment. Ask yourhealth care (more content not included)...[facility]08-23-2024 Hospital Discharge instructions Patient Education 05/18/2024 10:11:07 Bladder Cancer Bladder Cancer Bladder cancer is a condition where abnormal tissue (a tumor) grows in the bladder. The bladder is the organ that holds urine. Two tubes (ureters) carry urine from the kidneys to the bladder. The bladder wall is made of layers of tissue. Cancer that spreads through these layers of the bladder wall becomes more difficult to treat. What increases the risk? The following factors may make you more likely to develop this condition: Smoking. Working where there are risks (occupational exposures), such as working with rubber, leather, clothing fabric, dyes, chemicals, or paint. Being 55 years of age or older. Being male. Having long-term bladder inflammation. Having a history of cancer. This includes: ?A family history of bladder cancer. ?Having had bladder cancer before. ?Having had certain treatments for cancer before, such as: ?Medicines to kill cancer cells (chemotherapy). ?Strong X-ray beams or high-energy capsules to kill cancer cells and shrink tumors (radiation therapy). Having been exposed to arsenic. This is a poisonous substance. What are the signs or symptoms? Early symptoms of this condition include: Blood in your urine. Pain when urinating. Infections of your urinary system (urinary tract infections or UTIs) that happen often. Having to urinate sooner or more often than normal. Late symptoms of this condition include: Not being able to urinate. Pain on one side of your lower back. Loss of appetite. Weight loss. Tiredness (fatigue). Swelling in your feet. Bone pain. How is this diagnosed? This condition is diagnosed based on: Your medical history. A physical exam. Lab tests, such as urine tests. Imaging tests. Your symptoms. You may also have other tests or procedures, such as: A cystoscopy. This involves putting a narrow tube into your urethra. The urethra is the organ that carries urine from your bladder to the outside of your body. This procedure is done to view the lining of your bladder for tumors. A biopsy. This involves removing a tissue sample to look at under a microscope to check for cancer. Blood tests or imaging tests may be needed. These show how far into the bladder wall cancer has grown, and if cancer has spread to any other parts of your body. Tests may include: CT scan. MRI. Bone scan. X-ray. How is this treated? Your health care provider may recommend one or more types of treatment based on the stage of your cancer. The most common treatments are: Surgery to remove the cancer. Types of surgeries include: ?Removing a tumor on the inside wall of the bladder (transurethral resection). ?Removing the bladder (cystectomy). Radiation therapy. This is often combined with chemotherapy. Chemotherapy. Immunotherapy. This uses medicines to help your body's disease-fighting system (immune system) destroy cancer cells. Follow these instructions at home: Take llxw-kdj-ajvovww and prescription medicines only as told by your health care provider. If you were prescribed an antibiotic medicine, take it as told by your health care provider. Do notstop using the antibiotic even if you start to feel better. Eat a healthy diet. Some treatments might affect your appetite. Do not use any products that contain nicotine or tobacco. These products include cigarettes, chewing tobacco, and vaping devices, such as e-cigarettes. If you need help quitting, ask your health careprovider. Consider joining a support group. This may help you learn to deal with the stress of having bladdercancer. Tell your cancer care team if you develop side effects. Your team may be able to recommend ways to get relief. Keep all follow-up visits. This is important. Where to find more information [employer] (ACS): cancer.org [employer] Cancer [place] (NCI): cancer.gov Contact a health care provider if: You have symptoms of a UTI. These include: ?Fever. ?Chills. ?Weakness. ?Muscle aches. ?Pain in your abdomen. ?Urge to urinate that is stronger and happens more often than normal. ?Burning in the bladder or urethra when you urinate. Get help right away if: There is blood in your urine. You cannot urinate. You have severe pain or other symptoms that do not go away. Summary Bladder cancer is a condition where tumors grow in the bladder. Diagnosis is based on your medical history, a physical exam, lab tests, imaging tests, and your symptoms. Your health care provider may recommend one or more types of treatment based on the stage of your cancer. Consider joining a support group. This may help you learn to deal with the stress of having bladdercancer. This information is not intended to replace advice given to you by your health care provider. Make sure you discuss any questions you have with your health care provider. Document Revised: 08/23/2022 Document Reviewed: 08/23/2022 [employer] Patient Education 2022 [employer]. Follow Up Care 03/23/2024 08:48:15 With:ALTAGRACIA MATOS PA-C, URL Address: [address] [place] [address] When: Unknown Comments:BCG #6 of 6 in 1 week [facility] 08-23-2024 NotePatient Education Oncology Bladder Cancer Bladder cancer is a condition where abnormal tissue (a tumor) grows in the bladder. The bladder is the organ that holds urine. Two tubes (ureters) carry urine from the kidneys to the bladder. The bladder wall is made of layers of tissue. Cancer that spreads through these layers of the bladder wall becomes more difficult to treat. What increases the risk? The following factors may make you more likely to develop this condition: ? Smoking. ? Working where there are risks (occupational exposures), such as working with rubber, leather, clothing fabric, dyes, chemicals, or paint. ? Being 55 years of age or older. ? Being male. ? Having long-term bladder inflammation. ? Having a history of cancer. This includes: ? A family history of bladder cancer. ? Having had bladder cancer before. ? Having had certain treatments for cancer before, such as: ? Medicines to kill cancer cells (chemotherapy). ? Strong X-ray beams or high-energy capsules to kill cancer cells and shrink tumors (radiation therapy). ? Having been exposed to arsenic. This is a poisonous substance. What are the signs or symptoms? Early symptoms of this condition include: ? Blood in your urine. ? Pain when urinating. ? Infections of your urinary system (urinary tract infections or UTIs) that happen often. ? Having to urinate sooner or more often than normal. Late symptoms of this condition include: ? Not being able to urinate. ? Pain on one side of your lower back. ? Loss of appetite. ? Weight loss. ? Tiredness (fatigue). ? Swelling in your feet. ? Bone pain. How is this diagnosed? This condition is diagnosed based on: ? Your medical history. ? A physical exam. ? Lab tests, such as urine tests. ? Imaging tests. ? Your symptoms. You may also have other tests or procedures, such as: ? A cystoscopy. This involves putting a narrow tube into your urethra. The urethra is the organ that carries urine from your bladder to the outside of your body. This procedure is done to view the lining of your bladder for tumors. ? A biopsy. This involves removing a tissue sample to look at under a microscope to check for cancer. Blood tests or imaging tests may be needed. These show how far into the bladder wall cancer has grown, and if cancer has spread to any other parts of your body. Tests may include: ? CT scan. ? MRI. ? Bone scan. ? X-ray. How is this treated? Your health care provider may recommend one or more types of treatment based on the stage of your cancer. The most common treatments are: ? Surgery to remove the cancer. Types of surgeries include: ? Removing a tumor on the inside wall of the bladder (transurethral resection). ? Removing the bladder (cystectomy). ? Radiation therapy. This is often combined with chemotherapy. ? Chemotherapy. ? Immunotherapy. This uses medicines to help your body's disease-fighting system (immune system) destroy cancer cells. Follow these instructions at home: ? Take bfib-ibl-wbfolff and prescription medicines only as told by your health care provider. ? If you were prescribed an antibiotic medicine, take it as told by your health care provider. Do not stop using the antibiotic even if you start to feel better. ? Eat a healthy diet. Some treatments might affect your appetite. ? Do not use any products that contain nicotine or tobacco. These products include cigarettes, chewing tobacco, and vaping devices, such as e-cigarettes. If you need help quitting, ask your health care provider. ? Consider joining a support group. This may help you learn to deal with the stress of having bladder cancer. ? Tell your cancer care team if you develop side effects. Your team may be able to recommend ways to get relief. ? Keep all follow-up visits. This is important. Where to find more information ? [employer] (ACS): cancer.org ? National Cancer [place] (NCI): cancer.gov Contact a health care provider if: ? You have symptoms of a UTI. These include: ? Fever. ? Chills. ? Weakness. ? Muscle aches. ? Pain in your abdomen. ? Urge to urinate that is stronger and happens more often than normal. ? Burning in the bladder or urethra when you urinate. Get help right away if: ? There is blood in your urine. ? You cannot urinate. ? You have severe pain or other symptoms that do not go away. Summary ? Bladder cancer is a condition where tumors grow in the bladder. ? Diagnosis is based on your medical history, a physical exam, lab tests, imaging tests, and your symptoms. ? Your health care provider may recommend one or more types of treatment based on the stage of yourcancer. ? Consider joining a support group. This may help you learn to deal with the stress of having bladder cancer. This information is not intended to replace advice given to you by your health care provider. Make sure you discuss any q (more content not included)...[facility]08-16-2024 Hospital Discharge instructions Patient Education 05/11/2024 11:17:34 Bladder Cancer Bladder Cancer Bladder cancer is a condition where abnormal tissue (a tumor) grows in the bladder. The bladder is the organ that holds urine. Two tubes (ureters) carry urine from the kidneys to the bladder. The bladder wall is made of layers of tissue. Cancer that spreads through these layers of the bladder wall becomes more difficult to treat. What increases the risk? The following factors may make you more likely to develop this condition: Smoking. Working where there are risks (occupational exposures), such as working with rubber, leather, clothing fabric, dyes, chemicals, or paint. Being 55 years of age or older. Being male. Having long-term bladder inflammation. Having a history of cancer. This includes: ?A family history of bladder cancer. ?Having had bladder cancer before. ?Having had certain treatments for cancer before, such as: ?Medicines to kill cancer cells (chemotherapy). ?Strong X-ray beams or high-energy capsules to kill cancer cells and shrink tumors (radiation therapy). Having been exposed to arsenic. This is a poisonous substance. What are the signs or symptoms? Early symptoms of this condition include: Blood in your urine. Pain when urinating. Infections of your urinary system (urinary tract infections or UTIs) that happen often. Having to urinate sooner or more often than normal. Late symptoms of this condition include: Not being able to urinate. Pain on one side of your lower back. Loss of appetite. Weight loss. Tiredness (fatigue). Swelling in your feet. Bone pain. How is this diagnosed? This condition is diagnosed based on: Your medical history. A physical exam. Lab tests, such as urine tests. Imaging tests. Your symptoms. You may also have other tests or procedures, such as: A cystoscopy. This involves putting a narrow tube into your urethra. The urethra is the organ that carries urine from your bladder to the outside of your body. This procedure is done to view the lining of your bladder for tumors. A biopsy. This involves removing a tissue sample to look at under a microscope to check for cancer. Blood tests or imaging tests may be needed. These show how far into the bladder wall cancer has grown, and if cancer has spread to any other parts of your body. Tests may include: CT scan. MRI. Bone scan. X-ray. How is this treated? Your health care provider may recommend one or more types of treatment based on the stage of your cancer. The most common treatments are: Surgery to remove the cancer. Types of surgeries include: ?Removing a tumor on the inside wall of the bladder (transurethral resection). ?Removing the bladder (cystectomy). Radiation therapy. This is often combined with chemotherapy. Chemotherapy. Immunotherapy. This uses medicines to help your body's disease-fighting system (immune system) destroy cancer cells. Follow these instructions at home: Take wase-bhh-jauotvw and prescription medicines only as told by your health care provider. If you were prescribed an antibiotic medicine, take it as told by your health care provider. Do notstop using the antibiotic even if you start to feel better. Eat a healthy diet. Some treatments might affect your appetite. Do not use any products that contain nicotine or tobacco. These products include cigarettes, chewing tobacco, and vaping devices, such as e-cigarettes. If you need help quitting, ask your health careprovider. Consider joining a support group. This may help you learn to deal with the stress of having bladdercancer. Tell your cancer care team if you develop side effects. Your team may be able to recommend ways to get relief. Keep all follow-up visits. This is important. Where to find more information [employer] (ACS): cancer.org National Cancer [place] (NCI): cancer.gov Contact a health care provider if: You have symptoms of a UTI. These include: ?Fever. ?Chills. ?Weakness. ?Muscle aches. ?Pain in your abdomen. ?Urge to urinate that is stronger and happens more often than normal. ?Burning in the bladder or urethra when you urinate. Get help right away if: There is blood in your urine. You cannot urinate. You have severe pain or other symptoms that do not go away. Summary Bladder cancer is a condition where tumors grow in the bladder. Diagnosis is based on your medical history, a physical exam, lab tests, imaging tests, and your symptoms. Your health care provider may recommend one or more types of treatment based on the stage of your cancer. Consider joining a support group. This may help you learn to deal with the stress of having bladdercancer. This information is not intended to replace advice given to you by your health care provider. Make sure you discuss any questions you have with your health care provider. Document Revised: 08/23/2022 Document Reviewed: 08/23/2022 [employer] Patient Education 2022 [employer]. Follow Up Care 03/23/2024 08:46:16 With:BRANDO SEAY, ALTAGRACIA Pelayo, URL Address: [address] [place] [address]. [place] [address] When: Unknown Comments:BCG #5 of 6 in 1 week [facility] 08-16-2024 NotePatient Education Oncology Bladder Cancer Bladder cancer is a condition where abnormal tissue (a tumor) grows in the bladder. The bladder is the organ that holds urine. Two tubes (ureters) carry urine from the kidneys to the bladder. The bladder wall is made of layers of tissue. Cancer that spreads through these layers of the bladder wall becomes more difficult to treat. What increases the risk? The following factors may make you more likely to develop this condition: ? Smoking. ? Working where there are risks (occupational exposures), such as working with rubber, leather, clothing fabric, dyes, chemicals, or paint. ? Being 55 years of age or older. ? Being male. ? Having long-term bladder inflammation. ? Having a history of cancer. This includes: ? A family history of bladder cancer. ? Having had bladder cancer before. ? Having had certain treatments for cancer before, such as: ? Medicines to kill cancer cells (chemotherapy). ? Strong X-ray beams or high-energy capsules to kill cancer cells and shrink tumors (radiation therapy). ? Having been exposed to arsenic. This is a poisonous substance. What are the signs or symptoms? Early symptoms of this condition include: ? Blood in your urine. ? Pain when urinating. ? Infections of your urinary system (urinary tract infections or UTIs) that happen often. ? Having to urinate sooner or more often than normal. Late symptoms of this condition include: ? Not being able to urinate. ? Pain on one side of your lower back. ? Loss of appetite. ? Weight loss. ? Tiredness (fatigue). ? Swelling in your feet. ? Bone pain. How is this diagnosed? This condition is diagnosed based on: ? Your medical history. ? A physical exam. ? Lab tests, such as urine tests. ? Imaging tests. ? Your symptoms. You may also have other tests or procedures, such as: ? A cystoscopy. This involves putting a narrow tube into your urethra. The urethra is the organ that carries urine from your bladder to the outside of your body. This procedure is done to view the lining of your bladder for tumors. ? A biopsy. This involves removing a tissue sample to look at under a microscope to check for cancer. Blood tests or imaging tests may be needed. These show how far into the bladder wall cancer has grown, and if cancer has spread to any other parts of your body. Tests may include: ? CT scan. ? MRI. ? Bone scan. ? X-ray. How is this treated? Your health care provider may recommend one or more types of treatment based on the stage of your cancer. The most common treatments are: ? Surgery to remove the cancer. Types of surgeries include: ? Removing a tumor on the inside wall of the bladder (transurethral resection). ? Removing the bladder (cystectomy). ? Radiation therapy. This is often combined with chemotherapy. ? Chemotherapy. ? Immunotherapy. This uses medicines to help your body's disease-fighting system (immune system) destroy cancer cells. Follow these instructions at home: ? Take prwl-sps-mzwwzxu and prescription medicines only as told by your health care provider. ? If you were prescribed an antibiotic medicine, take it as told by your health care provider. Do not stop using the antibiotic even if you start to feel better. ? Eat a healthy diet. Some treatments might affect your appetite. ? Do not use any products that contain nicotine or tobacco. These products include cigarettes, chewing tobacco, and vaping devices, such as e-cigarettes. If you need help quitting, ask your health care provider. ? Consider joining a support group. This may help you learn to deal with the stress of having bladder cancer. ? Tell your cancer care team if you develop side effects. Your team may be able to recommend ways to get relief. ? Keep all follow-up visits. This is important. Where to find more information ? [place] [employer] (ACS): cancer.org ? National Cancer [place] (NCI): cancer.gov Contact a health care provider if: ? You have symptoms of a UTI. These include: ? Fever. ? Chills. ? Weakness. ? Muscle aches. ? Pain in your abdomen. ? Urge to urinate that is stronger and happens more often than normal. ? Burning in the bladder or urethra when you urinate. Get help right away if: ? There is blood in your urine. ? You cannot urinate. ? You have severe pain or other symptoms that do not go away. Summary ? Bladder cancer is a condition where tumors grow in the bladder. ? Diagnosis is based on your medical history, a physical exam, lab tests, imaging tests, and your symptoms. ? Your health care provider may recommend one or more types of treatment based on the stage of yourcancer. ? Consider joining a support group. This may help you learn to deal with the stress of having bladder cancer. This information is not intended to replace advice given to you by your health care provider. Make sure you discuss any q (more content not included)...[facility]08-09-2024 Hospital Discharge instructions Patient Education 05/04/2024 10:55:15 Chemotherapy Chemotherapy Chemotherapy is a cancer treatment. It uses medicines to slow down or stop the growth of cancer. You may have chemotherapy to: Cure your cancer. Prevent the cancer from growing or spreading (metastasizing). Ease symptoms and improve your quality of life (palliative care). Improve the effects of radiation treatment. Shrink a tumor before surgery. Rid the body of cancer cells that remain after having a tumor surgically removed. The length of chemotherapy treatment depends on many factors, including: The type and stage of your cancer. How you respond to the chemotherapy. Your side effects. What are the risks? Generally, this is a safe treatment. However, problems may occur, including: Infection. Bleeding. Allergic reactions to medicines. You may have side effects from chemotherapy. What side effects you have depend on a variety of factors, including: The type of chemotherapy medicine used. Your dosage. How long the medicine is used for. Your overall health. What happens before treatment? You will meet with your cancer care team to discuss: ?Your treatment schedule. ?How your chemotherapy medicine will be given. ?Common side effects and how to prevent or treat them, which may include being given medicines. You may have blood tests. What happens during treatment? Chemotherapy may be given continuously over time, or it may be given in cycles. Some common ways chemotherapy may be given include: As a pill or capsule. As a shot (injection). As a skin (topical) cream. As a special wafer that is put in your body where the cancer is. The wafer contains chemotherapy medicine. As an injection into the cerebrospinal fluid (CSF) in the brain or spinal cord (intraventricular orintrathecal chemotherapy). As an installation into the intraperitoneal (abdominal) cavity. Through a small, thin tube (catheter). There are different kinds of catheters. You might have one that: ?Goes into a vein (intravenous catheter). An IV may be inserted into a vein each time you get a treatment or it can be used over several days. ?Goes into a vein in your neck that leads to a large vein close to your heart (non-tunneled catheter). This catheter has a risk of infection, so it is used for only a short time. ?Goes into a vein near your elbow (PICC line) and passes through into a large vein in your chest orupper arm. This may be used for weeks or months. ?Connects to an implanted device (port) that is inserted under the skin of your chest (port catheter). The port is attached to a catheter that is passed through into a large vein in your chest or upper arm. The port may stay in place for months or years. ?Goes through the skin of your chest and into a large vein close to your heart (tunneled catheter).This catheter may stay in place for months or years. While you are receiving your chemotherapy medicine, your cancer care team may monitor your blood pressure, heart rate, breathing rate, and blood oxygen level (vital signs) and watch for any problems. Some types of chemotherapy medicine are given only one time. Others are given for months, years, orfor life. What can I expect after treatment? After chemotherapy, you may have side effects, such as: Nausea and vomiting. Appetite loss or a change in the way foods taste. Constipation or diarrhea. Fatigue. Increased risk of infections, bruising, or bleeding. Hair loss. Mouth or throat sores. Tingling, pain, or numbness in the hands and feet. Dry, sensitive, itchy, or sore skin. Memory changes. Follow these instructions at home: General instructions If you get chemotherapy through an IV, PICC line, or port, check the site every day for signs of infection. Check for redness, swelling, pain, fluid, or warmth. Wash your hands frequently with soap and water. Scrub your hands for at least 20 seconds. If soap and water are not available, use an alcohol based hand military analyst that contains at least 60% alcohol. Have other members of your household wash their hands often. Chemotherapy medicines leave the body through urine or stool (feces), but they can also be present in other body fluids including vomit, blood, vaginal fluids, and semen for up to 48 hours after receiving the medication. You must carefully follow some safety precautions to prevent harm to others while you are taking these medicines: ?Wash laundry that comes in contact with your body fluids separately. This includes clothing, sheets, and towels. Machine wash laundry twice in hot water with regular laundry detergent. ?Use a condom during vaginal, anal, and oral sex while you are taking chemotherapy medicines. Thesemedicines can stay active in your body for at least 48 hours after you receive treatment. Ask your health care provider how long you should take precautions. ?Practice good bathroom hygiene: ?If possible, use a toilet separate from others in the household. ?Always sit when using the toilet. Close the toilet seat lid before you flush. ?Wash your hands thoroughly with soap and water for at least 20 seconds after each time you use thetoilet. Keep all follow-up visits. This is important. Eating and drinking Talk with a dietitian about what you should eat and drink during cancer treatment. Always wash fresh fruits and vegetables well before eating them. Drink enough fluid to keep your urine pale yellow. Medicines Take uakv-eor-jjoainq and prescription medicines only as told by your health care provider. Talk with your health care provider about all medicines, vitamins, and herbal or dietary supplements that you take. Some vitamins and supplements should not be taken during chemotherapy because they may interfere with the treatment. Activity Get plenty of rest. Get regular exercise such as walking, gentle yoga, or yumi chi. Return to your normal activities as told by your health care provider. Ask your health care provider what activities are safe for you. Contact a health care provider if: You have soreness or redness at your injection, IV, or catheter site. You have a headache or stiff neck. You have a cough, cold, or flu-like symptoms. You have painful, frequent, foul-smelling, or bloody urine. You have constipation, diarrhea, or bloody stool. You have uncontrolled nausea or vomiting. You cannot eat because of mouth or throat pain. You have a skin rash or are bleeding or bruising easily or often. Get help right away if: You have a fever. This is important. You have more redness, swelling, pain, fluid, or warmth near your injection, IV, or catheter site. You have bleeding that does not stop. You have a seizure. You have chest pain or difficulty breathing. These symptoms may be an emergency. Get help right away. Call 911. Do not wait to see if the symptoms will go away. Do not drive yourself to the hospital. Summary Chemotherapy is a way to treat cancer. It uses medicines to slow down or stop the growth of cancer. Before treatment, you and your cancer care team will discuss common side effects and how to manage them. The way that you will get chemotherapy medicines depends on your condition and the type of cancer being treated. Take ngkl-bkz-yvdnhzk and prescription medicines only as told by your health care provider. This information is not intended to replace advice given to you by your health care provider. Make sure you discuss any questions you have with your health care provider. Document Revised: 07/06/2022 Document Reviewed: 07/06/2022 [employer] Patient Education 2022 [employer] Follow Up Care 03/23/2024 08:38:33 With:ALTAGRACIA MATOS PA-C, URL Address: [address] [place] [phone] When: Unknown Comments:BCG #4/6 (half dose) on 05/11/24 [facility] 08-09-2024 NotePatient Education Oncology Chemotherapy Chemotherapy is a cancer treatment. It uses medicines to slow down or stop the growth of cancer. You may have chemotherapy to: ? Cure your cancer. ? Prevent the cancer from growing or spreading (metastasizing). ? Ease symptoms and improve your quality of life (palliative care). ? Improve the effects of radiation treatment. ? Shrink a tumor before surgery. ? Rid the body of cancer cells that remain after having a tumor surgically removed. The length of chemotherapy treatment depends on many factors, including: ? The type and stage of your cancer. ? How you respond to the chemotherapy. ? Your side effects. What are the risks? Generally, this is a safe treatment. However, problems may occur, including: ? Infection. ? Bleeding. ? Allergic reactions to medicines. You may have side effects from chemotherapy. What side effects you have depend on a variety of factors, including: ? The type of chemotherapy medicine used. ? Your dosage. ? How long the medicine is used for. ? Your overall health. What happens before treatment? ? You will meet with your cancer care team to discuss: ? Your treatment schedule. ? How your chemotherapy medicine will be given. ? Common side effects and how to prevent or treat them, which may include being given medicines. ? You may have blood tests. What happens during treatment? Chemotherapy may be given continuously over time, or it may be given in cycles. Some common ways chemotherapy may be given include: ? As a pill or capsule. ? As a shot (injection). ? As a skin (topical) cream. ? As a special wafer that is put in your body where the cancer is. The wafer contains chemotherapy medicine. ? As an injection into the cerebrospinal fluid (CSF) in the brain or spinal cord (intraventricular or intrathecal chemotherapy). ? As an installation into the intraperitoneal (abdominal) cavity. ? Through a small, thin tube (catheter). There are different kinds of catheters. You might have onethat: ? Goes into a vein (intravenous catheter). An IV may be inserted into a vein each time you get a treatment or it can be used over several days. ? Goes into a vein in your neck that leads to a large vein close to your heart (non-tunneled catheter). This catheter has a risk of infection, so it is used for only a short time. ? Goes into a vein near your elbow (PICC line) and passes through into a large vein in your chest or upper arm. This may be used for weeks or months. ? Connects to an implanted device (port) that is inserted under the skin of your chest (port catheter). The port is attached to a catheter that is passed through into a large vein in your chest or upper arm. The port may stay in place for months or years. ? Goes through the skin of your chest and into a large vein close to your heart (tunneled catheter). This catheter may stay in place for months or years. While you are receiving your chemotherapy medicine, your cancer care team may monitor your blood pressure, heart rate, breathing rate, and blood oxygen level (vital signs) and watch for any problems. Some types of chemotherapy medicine are given only one time. Others are given for months, years, orfor life. What can I expect after treatment? After chemotherapy, you may have side effects, such as: ? Nausea and vomiting. ? Appetite loss or a change in the way foods taste. ? Constipation or diarrhea. ? Fatigue. ? Increased risk of infections, bruising, or bleeding. ? Hair loss. ? Mouth or throat sores. ? Tingling, pain, or numbness in the hands and feet. ? Dry, sensitive, itchy, or sore skin. ? Memory changes. Follow these instructions at home: General instructions ? If you get chemotherapy through an IV, PICC line, or port, check the site every day for signs of infection. Check for redness, swelling, pain, fluid, or warmth. ? Wash your hands frequently with soap and water. Scrub your hands for at least 20 seconds. If soapand water are not available, use an alcohol based hand military analyst that contains at least 60% alcohol. Have other members of your household wash their hands often. ? Chemotherapy medicines leave the body through urine or stool (feces), but they can also be present in other body fluids including vomit, blood, vaginal fluids, and semen for up to 48 hours after receiving the medication. You must carefully follow some safety precautions to prevent harm to others while you are taking these medicines: ? Wash laundry that comes in contact with your body fluids separately. This includes clothing, sheets, and towels. Machine wash laundry twice in hot water with regular laundry detergent. ? Use a condom during vaginal, anal, and oral sex while you are taking chemotherapy medicines. These medicines can stay active in your body for at least 48 hours after you receive treatment. Ask yourhealth care (more content not included)...[facility]07-19-2024 Hospital Discharge instructions Patient Education 04/13/2024 11:19:27 Chemotherapy Chemotherapy Chemotherapy is a cancer treatment. It uses medicines to slow down or stop the growth of cancer. You may have chemotherapy to: Cure your cancer. Prevent the cancer from growing or spreading (metastasizing). Ease symptoms and improve your quality of life (palliative care). Improve the effects of radiation treatment. Shrink a tumor before surgery. Rid the body of cancer cells that remain after having a tumor surgically removed. The length of chemotherapy treatment depends on many factors, including: The type and stage of your cancer. How you respond to the chemotherapy. Your side effects. What are the risks? Generally, this is a safe treatment. However, problems may occur, including: Infection. Bleeding. Allergic reactions to medicines. You may have side effects from chemotherapy. What side effects you have depend on a variety of factors, including: The type of chemotherapy medicine used. Your dosage. How long the medicine is used for. Your overall health. What happens before treatment? You will meet with your cancer care team to discuss: ?Your treatment schedule. ?How your chemotherapy medicine will be given. ?Common side effects and how to prevent or treat them, which may include being given medicines. You may have blood tests. What happens during treatment? Chemotherapy may be given continuously over time, or it may be given in cycles. Some common ways chemotherapy may be given include: As a pill or capsule. As a shot (injection). As a skin (topical) cream. As a special wafer that is put in your body where the cancer is. The wafer contains chemotherapy medicine. As an injection into the cerebrospinal fluid (CSF) in the brain or spinal cord (intraventricular orintrathecal chemotherapy). As an installation into the intraperitoneal (abdominal) cavity. Through a small, thin tube (catheter). There are different kinds of catheters. You might have one that: ?Goes into a vein (intravenous catheter). An IV may be inserted into a vein each time you get a treatment or it can be used over several days. ?Goes into a vein in your neck that leads to a large vein close to your heart (non-tunneled catheter). This catheter has a risk of infection, so it is used for only a short time. ?Goes into a vein near your elbow (PICC line) and passes through into a large vein in your chest orupper arm. This may be used for weeks or months. ?Connects to an implanted device (port) that is inserted under the skin of your chest (port catheter). The port is attached to a catheter that is passed through into a large vein in your chest or upper arm. The port may stay in place for months or years. ?Goes through the skin of your chest and into a large vein close to your heart (tunneled catheter).This catheter may stay in place for months or years. While you are receiving your chemotherapy medicine, your cancer care team may monitor your blood pressure, heart rate, breathing rate, and blood oxygen level (vital signs) and watch for any problems. Some types of chemotherapy medicine are given only one time. Others are given for months, years, orfor life. What can I expect after treatment? After chemotherapy, you may have side effects, such as: Nausea and vomiting. Appetite loss or a change in the way foods taste. Constipation or diarrhea. Fatigue. Increased risk of infections, bruising, or bleeding. Hair loss. Mouth or throat sores. Tingling, pain, or numbness in the hands and feet. Dry, sensitive, itchy, or sore skin. Memory changes. Follow these instructions at home: General instructions If you get chemotherapy through an IV, PICC line, or port, check the site every day for signs of infection. Check for redness, swelling, pain, fluid, or warmth. Wash your hands frequently with soap and water. Scrub your hands for at least 20 seconds. If soap and water are not available, use an alcohol based hand military analyst that contains at least 60% alcohol. Have other members of your household wash their hands often. Chemotherapy medicines leave the body through urine or stool (feces), but they can also be present in other body fluids including vomit, blood, vaginal fluids, and semen for up to 48 hours after receiving the medication. You must carefully follow some safety precautions to prevent harm to others while you are taking these medicines: ?Wash laundry that comes in contact with your body fluids separately. This includes clothing, sheets, and towels. Machine wash laundry twice in hot water with regular laundry detergent. ?Use a condom during vaginal, anal, and oral sex while you are taking chemotherapy medicines. Thesemedicines can stay active in your body for at least 48 hours after you receive treatment. Ask your health care provider how long you should take precautions. ?Practice good bathroom hygiene: ?If possible, use a toilet separate from others in the household. ?Always sit when using the toilet. Close the toilet seat lid before you flush. ?Wash your hands thoroughly with soap and water for at least 20 seconds after each time you use thetoilet. Keep all follow-up visits. This is important. Eating and drinking Talk with a dietitian about what you should eat and drink during cancer treatment. Always wash fresh fruits and vegetables well before eating them. Drink enough fluid to keep your urine pale yellow. Medicines Take lbla-yrp-azncyaz and prescription medicines only as told by your health care provider. Talk with your health care provider about all medicines, vitamins, and herbal or dietary supplements that you take. Some vitamins and supplements should not be taken during chemotherapy because they may interfere with the treatment. Activity Get plenty of rest. Get regular exercise such as walking, gentle yoga, or yumi chi. Return to your normal activities as told by your health care provider. Ask your health care provider what activities are safe for you. Contact a health care provider if: You have soreness or redness at your injection, IV, or catheter site. You have a headache or stiff neck. You have a cough, cold, or flu-like symptoms. You have painful, frequent, foul-smelling, or bloody urine. You have constipation, diarrhea, or bloody stool. You have uncontrolled nausea or vomiting. You cannot eat because of mouth or throat pain. You have a skin rash or are bleeding or bruising easily or often. Get help right away if: You have a fever. This is important. You have more redness, swelling, pain, fluid, or warmth near your injection, IV, or catheter site. You have bleeding that does not stop. You have a seizure. You have chest pain or difficulty breathing. These symptoms may be an emergency. Get help right away. Call 911. Do not wait to see if the symptoms will go away. Do not drive yourself to the hospital. Summary Chemotherapy is a way to treat cancer. It uses medicines to slow down or stop the growth of cancer. Before treatment, you and your cancer care team will discuss common side effects and how to manage them. The way that you will get chemotherapy medicines depends on your condition and the type of cancer being treated. Take skqk-bci-qscdwmh and prescription medicines only as told by your health care provider. This information is not intended to replace advice given to you by your health care provider. Make sure you discuss any questions you have with your health care provider. Document Revised: 07/06/2022 Document Reviewed: 07/06/2022 [employer] Patient Education 2022 [employer]. Follow Up Care 03/23/2024 08:35:29 With:ALTAGRACIA MATOS PA-C, URL Address: [address] [place] [address] [phone] When: Unknown Comments:BCG #/ on 04/27/24 [facility] 07-19-2024 NotePatient Education Oncology Chemotherapy Chemotherapy is a cancer treatment. It uses medicines to slow down or stop the growth of cancer. You may have chemotherapy to: ? Cure your cancer. ? Prevent the cancer from growing or spreading (metastasizing). ? Ease symptoms and improve your quality of life (palliative care). ? Improve the effects of radiation treatment. ? Shrink a tumor before surgery. ? Rid the body of cancer cells that remain after having a tumor surgically removed. The length of chemotherapy treatment depends on many factors, including: ? The type and stage of your cancer. ? How you respond to the chemotherapy. ? Your side effects. What are the risks? Generally, this is a safe treatment. However, problems may occur, including: ? Infection. ? Bleeding. ? Allergic reactions to medicines. You may have side effects from chemotherapy. What side effects you have depend on a variety of factors, including: ? The type of chemotherapy medicine used. ? Your dosage. ? How long the medicine is used for. ? Your overall health. What happens before treatment? ? You will meet with your cancer care team to discuss: ? Your treatment schedule. ? How your chemotherapy medicine will be given. ? Common side effects and how to prevent or treat them, which may include being given medicines. ? You may have blood tests. What happens during treatment? Chemotherapy may be given continuously over time, or it may be given in cycles. Some common ways chemotherapy may be given include: ? As a pill or capsule. ? As a shot (injection). ? As a skin (topical) cream. ? As a special wafer that is put in your body where the cancer is. The wafer contains chemotherapy medicine. ? As an injection into the cerebrospinal fluid (CSF) in the brain or spinal cord (intraventricular or intrathecal chemotherapy). ? As an installation into the intraperitoneal (abdominal) cavity. ? Through a small, thin tube (catheter). There are different kinds of catheters. You might have onethat: ? Goes into a vein (intravenous catheter). An IV may be inserted into a vein each time you get a treatment or it can be used over several days. ? Goes into a vein in your neck that leads to a large vein close to your heart (non-tunneled catheter). This catheter has a risk of infection, so it is used for only a short time. ? Goes into a vein near your elbow (PICC line) and passes through into a large vein in your chest or upper arm. This may be used for weeks or months. ? Connects to an implanted device (port) that is inserted under the skin of your chest (port catheter). The port is attached to a catheter that is passed through into a large vein in your chest or upper arm. The port may stay in place for months or years. ? Goes through the skin of your chest and into a large vein close to your heart (tunneled catheter). This catheter may stay in place for months or years. While you are receiving your chemotherapy medicine, your cancer care team may monitor your blood pressure, heart rate, breathing rate, and blood oxygen level (vital signs) and watch for any problems. Some types of chemotherapy medicine are given only one time. Others are given for months, years, orfor life. What can I expect after treatment? After chemotherapy, you may have side effects, such as: ? Nausea and vomiting. ? Appetite loss or a change in the way foods taste. ? Constipation or diarrhea. ? Fatigue. ? Increased risk of infections, bruising, or bleeding. ? Hair loss. ? Mouth or throat sores. ? Tingling, pain, or numbness in the hands and feet. ? Dry, sensitive, itchy, or sore skin. ? Memory changes. Follow these instructions at home: General instructions ? If you get chemotherapy through an IV, PICC line, or port, check the site every day for signs of infection. Check for redness, swelling, pain, fluid, or warmth. ? Wash your hands frequently with soap and water. Scrub your hands for at least 20 seconds. If soapand water are not available, use an alcohol based hand military analyst that contains at least 60% alcohol. Have other members of your household wash their hands often. ? Chemotherapy medicines leave the body through urine or stool (feces), but they can also be present in other body fluids including vomit, blood, vaginal fluids, and semen for up to 48 hours after receiving the medication. You must carefully follow some safety precautions to prevent harm to others while you are taking these medicines: ? Wash laundry that comes in contact with your body fluids separately. This includes clothing, sheets, and towels. Machine wash laundry twice in hot water with regular laundry detergent. ? Use a condom during vaginal, anal, and oral sex while you are taking chemotherapy medicines. These medicines can stay active in your body for at least 48 hours after you receive treatment. Ask yourhealth care (more content not included)...[facility]06-21-2024 Hospital Discharge instructions Patient Education 03/16/2024 09:22:29 Bladder Cancer Bladder Cancer Bladder cancer is a condition where abnormal tissue (a tumor) grows in the bladder. The bladder is the organ that holds urine. Two tubes (ureters) carry urine from the kidneys to the bladder. The bladder wall is made of layers of tissue. Cancer that spreads through these layers of the bladder wall becomes more difficult to treat. What increases the risk? The following factors may make you more likely to develop this condition: Smoking. Working where there are risks (occupational exposures), such as working with rubber, leather, clothing fabric, dyes, chemicals, or paint. Being 55 years of age or older. Being male. Having long-term bladder inflammation. Having a history of cancer. This includes: ?A family history of bladder cancer. ?Having had bladder cancer before. ?Having had certain treatments for cancer before, such as: ?Medicines to kill cancer cells (chemotherapy). ?Strong X-ray beams or high-energy capsules to kill cancer cells and shrink tumors (radiation therapy). Having been exposed to arsenic. This is a poisonous substance. What are the signs or symptoms? Early symptoms of this condition include: Blood in your urine. Pain when urinating. Infections of your urinary system (urinary tract infections or UTIs) that happen often. Having to urinate sooner or more often than normal. Late symptoms of this condition include: Not being able to urinate. Pain on one side of your lower back. Loss of appetite. Weight loss. Tiredness (fatigue). Swelling in your feet. Bone pain. How is this diagnosed? This condition is diagnosed based on: Your medical history. A physical exam. Lab tests, such as urine tests. Imaging tests. Your symptoms. You may also have other tests or procedures, such as: A cystoscopy. This involves putting a narrow tube into your urethra. The urethra is the organ that carries urine from your bladder to the outside of your body. This procedure is done to view the lining of your bladder for tumors. A biopsy. This involves removing a tissue sample to look at under a microscope to check for cancer. Blood tests or imaging tests may be needed. These show how far into the bladder wall cancer has grown, and if cancer has spread to any other parts of your body. Tests may include: CT scan. MRI. Bone scan. X-ray. How is this treated? Your health care provider may recommend one or more types of treatment based on the stage of your cancer. The most common treatments are: Surgery to remove the cancer. Types of surgeries include: ?Removing a tumor on the inside wall of the bladder (transurethral resection). ?Removing the bladder (cystectomy). Radiation therapy. This is often combined with chemotherapy. Chemotherapy. Immunotherapy. This uses medicines to help your body's disease-fighting system (immune system) destroy cancer cells. Follow these instructions at home: Take cjkc-puz-rihygzn and prescription medicines only as told by your health care provider. If you were prescribed an antibiotic medicine, take it as told by your health care provider. Do notstop using the antibiotic even if you start to feel better. Eat a healthy diet. Some treatments might affect your appetite. Do not use any products that contain nicotine or tobacco. These products include cigarettes, chewing tobacco, and vaping devices, such as e-cigarettes. If you need help quitting, ask your health careprovider. Consider joining a support group. This may help you learn to deal with the stress of having bladdercancer. Tell your cancer care team if you develop side effects. Your team may be able to recommend ways to get relief. Keep all follow-up visits. This is important. Where to find more information [employer] (ACS): cancer.org National Cancer [place] (NCI): cancer.gov Contact a health care provider if: You have symptoms of a UTI. These include: ?Fever. ?Chills. ?Weakness. ?Muscle aches. ?Pain in your abdomen. ?Urge to urinate that is stronger and happens more often than normal. ?Burning in the bladder or urethra when you urinate. Get help right away if: There is blood in your urine. You cannot urinate. You have severe pain or other symptoms that do not go away. Summary Bladder cancer is a condition where tumors grow in the bladder. Diagnosis is based on your medical history, a physical exam, lab tests, imaging tests, and your symptoms. Your health care provider may recommend one or more types of treatment based on the stage of your cancer. Consider joining a support group. This may help you learn to deal with the stress of having bladdercancer. This information is not intended to replace advice given to you by your health care provider. Make sure you discuss any questions you have with your health care provider. Document Revised: 08/23/2022 Document Reviewed: 08/23/2022 [employer] Patient Education 2022 [employer]. Follow Up Care 02/03/2024 08:52:21 With:SHEA JARA, Jarad Hendrickson, URL Address: [address] [place], [place] [id number]- When: Unknown [facility] 05-10-2024 Hospital Discharge instructions Patient Education 02/03/2024 08:40:42 Transurethral Resection [...] light, a tiny camera, and an electric cuttingedge (resectoscope) is passed through the urethra. In men, the opening of the urethra is at the endof the penis. In women, it is just above the opening of the vagina. Tell a health care provider about: Any allergies you have. All medicines you are taking, including vitamins, herbs, eye drops, creams, and gdqt-uah-hzxjbjp medicines. Any problems you or family members [...] provider tells you to take them. Taking jnhy-pze-osajirh medicines, vitamins, herbs, and supplements. General instructions [...] for at least 4 weeks before the procedure.These products include cigarettes, chewing tobacco, and vaping [...] blood oxygen level will be monitored until youleave the hospital or clinic. You may continue [...] the removal (resection) of a cancerous growth (tumor)on the inside wall of the bladder. To do this procedure, your health care provider uses a thin telescope with a light, a tiny camera, and an electric cutting edge (resectoscope) that is guided to your bladder through your urethra. Thepart of your bladder that is affected by the tumor will be resected by the cutting edge of the resectoscope. A catheter will be passed through your urethra and into your bladder. The catheter will drain urineinto a bag outside of your body. If you will be going home right after the procedure, plan to have a responsible adult take you homefrom the hospital or clinic. You will not be allowed to drive. This information is not intended to replace advice given to you by your health care provider. Make sure you discuss any questions you have with your health care provider. Document Revised: 09/17/2022 Document Reviewed: 09/17/2022 [employer] Patient Education 2022 [employer]. Follow Up Care 01/12/2024 10:26:16 With:SHEA JARA, Jarad Hendrickson, URL Address: [address] [place] [id number] When: Unknown [facility] 08-20-2023 Evaluation note* Encounter Date Diagnosis Assessment Notes Treatment Notes Treatment Clinical Notes Apr, Bee sting, undetermined intent, initial [...] the ER for worsening symptoms or concerns [facility] Other 04-14-2023 Hospital Discharge instructions Patient Education [...] Follow these instructions at home: Medicines Take tzyl-yqy-qocbeqt and prescription medicines only as told by [...] or the blood stops without treatment. Take edoc-trg-kadihvj and prescription medicines only as told by your health care provider. Drink enough fluid to keep your urine clear or pale yellow. This information is not intended to replace advice given to you by your health care provider. Make sure you discuss any questions you have with your health care provider. Document Released: 09/12/2006 Document Revised: 02/06/2020 Document Reviewed: 10/15/2017 [employer] Patient Education 2019 [employer]. 01/07/2023 07:52:39 Benign Prostatic Hyperplasia Benign Prostatic [...] urethra. Follow these instructions at home: Take myhc-gcy-bbesbxq and prescription medicines only as told by [...] 09/12/2006 Document Revised: 08/07/2019 Document Reviewed: 10/17/2017 [employer] Patient Education 2020 [employer] Follow Up Care 12/13/2022 16:29:11 With:SHEA JARA, Jarad Hendrickson, URL Address: [facility] [address], [place] [address] [phone] When: Unknown Comments:Will schedule Cysto, Parrish RG, parrish ureter [facility] Hospital Discharge instructions Patient Education 12/22/2022 [...] if anything looks unusual. Men with a qhaiot-jfuu-bntqto risk for skin cancer may want to see a bpo specialist (supervisor sheet manufacturing) for an annual body check. Where to find more information National Cancer [place]: https://www.cancer.gov/about-cancer/screening Centers for Disease Control and Prevention: https://www.cdc.gov/cancer/dcpc/prevention/screening.htm [employer]: https://www.cancer.org/latest-news/8-ycyilm-whjfaycdr-srlyt-zqa-itv.html Contact a health care provider if: You [...] 2017 Document Revised: 06/01/2019 Document Reviewed: 2017 [employer] Patient Education 2020 [employer]. Follow Up Care 12/14/2022 15:49:50 With:SHEA JARA, Jarad Hendrickson, URL Address: [facility] [address] [place] [address]- When: Unknown [facility] 02-21-2023 NotePROCEDURE: XR SHOULDER LT 2V or [...] Electronically authenticated by: GRISEL THOMAS Date: 2022-11-16 10:35[facility]01-27-2023 Evaluation + Plan note Diagnostic Tests Pending * UroVysion Fish and Urine Cyto ([facility]) 10/22/22 [facility] 08-20-2013 History general Narrative - Reported* Type Description Date Medical History bladder cancer 10 years ago Surgical History cholecystectomy Surgical History bladder scope [facility] Other Evaluation + Plan note Future Appointments Appointment Date:01/07/2023 08:45:00 AM Scheduled Provider:Jarad VALDIVIA MD Location:[facility] Appointment Type:URO Office Visit Diagnostic Tests Pending * Prostate Histology ([facility]) 12/22/22 [facility] Evaluation + Plan note Future Appointments Appointment Date:03/09/2024 09:00:00 AM Scheduled Provider: Location:[facility] Appointment Type:URO Nurse Visit Appointment Date:03/16/2024 08:45:00 AM Scheduled Provider:Jarad VALDIVIA MD Location:[facility] Appointment Type:URO Office Visit [facility] Evaluation + Plan note Future Appointments Appointment Date:03/09/2024 09:00:00 AM Scheduled Provider: Location:[facility] Appointment Type:URO Nurse Visit Appointment Date:03/16/2024 08:45:00 AM Scheduled Provider:Jarad VALDIVIA MD Location:[facility] Appointment Type:URO Office Visit Diagnostic Tests Pending * UroVysion Fish and Urine Cyto ([facility] Labs) [facility] Appointment Date:04/27/2024 10:40:00 AM Scheduled Provider:ALTAGRACIA MATOS PA-C Location:[facility] Appointment Type:URO Office Visit Appointment Date:05/04/2024 10:40:00 AM Scheduled Provider:ALTAGRACIA MATOS PA-C Location:[facility] Appointment Type:URO Office Visit Appointment Date:05/11/2024 10:40:00 AM Scheduled Provider:ALTAGRACIA MATOS PA-C Location:[facility] Appointment Type:URO Office Visit Appointment Date:05/18/2024 10:40:00 AM Scheduled Provider:ALTAGRACIA MATOS PA-C Location:[facility] Appointment Type:URO Office Visit Appointment Date:05/25/2024 10:40:00 AM Scheduled Provider:ALTAGRACIA MATOS PA-C Location:[facility] Appointment Type:URO Office Visit [facility] evaluation + Plan note Future Appointments Appointment Date:05/04/2024 10:40:00 AM Scheduled Provider:ALTAGRACIA MATOS PA-C Location:[facility] Appointment Type:URO Office Visit Appointment Date:05/11/2024 10:40:00 AM Scheduled Provider:ALTAGRACIA MATOS PA-C Location:[facility] Appointment Type:URO Office Visit Appointment Date:05/18/2024 10:40:00 AM Scheduled Provider:ALTAGRACIA MATOS PA-C Location:[facility] Appointment Type:URO Office Visit Appointment Date:05/25/2024 10:40:00 AM Scheduled Provider:ALTAGRACIA MATOS PA-C Location:[facility] Appointment Type:URO Office Visit [facility] evaluation + Plan note Future Appointments Appointment Date:05/11/2024 10:40:00 AM Scheduled Provider:ALTAGRACIA MATOS PA-C Location:[facility] Appointment Type:URO Office Visit Appointment Date:05/18/2024 10:40:00 AM Scheduled Provider:ALTAGRACIA MATOS PA-C Location:[facility] Appointment Type:URO Office Visit Appointment Date:05/25/2024 10:40:00 AM Scheduled Provider:ALTAGRACIA MATOS PA-C Location:[facility] Appointment Type:URO Office Visit [facility] Evaluation + Plan note Future Appointments Appointment Date:05/18/2024 10:40:00 AM Scheduled Provider:ALTAGRACIA MATOS PA-C Location:[facility] Appointment Type:URO Office Visit Appointment Date:05/25/2024 10:40:00 AM Scheduled Provider:ALTAGRACIA MATOS PA-C Location:[facility] Appointment Type:URO Office Visit [facility] Evaluation + Plan note Future Appointments Appointment Date:05/25/2024 10:40:00 AM Scheduled Provider:ALTAGRACIA MATOS PA-C Location:[facility] Appointment Type:URO Office Visit [facility] Evaluation + Plan note Future Appointments Appointment Date:12/19/2024 07:30:00 AM Scheduled Provider:Jarad VALDIVIA MD Location:[facility] Appointment Type:URO Procedure 15 min [facility] evaluation + Plan note Future Appointments Appointment Date:03/25/2025 08:15:00 AM Scheduled Provider:Jarad VALDIVIA MD Location:[facility] Appointment Type:URO Procedure 15 min Diagnostic Tests Pending * [facility] Fish [facility] Urine Cyto ([facility]) 12/19/24 [facility] noteNo assessment information available [facility] Work Phone: Evaluation note* Diagnosis Malignant neoplasm of urinary bladder neck (HCC)- Primary Malignant neoplasm of bladder neck [facility] [place] [facility] Diagnosis Malignant neoplasm of urinary bladder, unspecified site (HCC)- Primary [facility] [place] [facility]* Diagnosis Malignant neoplasm of urinary bladder, unspecified site (HCC)- Primary [facility] [place] [facility]* Diagnosis Malignant neoplasm of urinary bladder neck (HCC)- Primary Malignant neoplasm of bladder neck [facility] High risk medication use- Primary Encounter for long-term (current) use of other medications Malignant neoplasm of urinary bladder, unspecified site (HCC)- Primary [facility] Diagnosis High risk medication use- Primary Encounter for long-term (current) use of other medications [facility] Diagnosis Malignant neoplasm of urinary bladder, unspecified site (HCC)- Primary [facility] [place] [facility]* Diagnosis High risk medication use- Primary Encounter for long-term (current) use of other medications [facility]* Author Kim Matute [facility] Authored December 31, 2024 9:36 am 59-year-old man referred to the liver clinic for evaluation of liver cirrhosis. CT in 2022 showed cirrhotic morphology of the liver with upper abdominal varices + alcohol dependence. Will check MELD labs Will arrange for US and AFP every 6 months. Will arrange for EGD Patient was counseled about the importance of alcohol dependence. Will check viral hepatitis serologies. [facility] Work Phone: Evaluation note* Diagnosis Malignant neoplasm of urinary bladder, unspecified site (HCC)- Primary [facility] [place] [facility] Diagnosis Malignant neoplasm of urinary bladder, unspecified site (HCC)- Primary [facility] [place] [facility]* Diagnosis Malignant neoplasm of urinary bladder, unspecified site (HCC)- Primary [facility] [place] [facility]* Diagnosis Malignant neoplasm of urinary bladder, unspecified site (HCC)- Primary [facility] [place] [facility]* Diagnosis Malignant neoplasm of urinary bladder, unspecified site (HCC)- Primary [facility] [place] [facility]* Diagnosis Pes anserinus bursitis of right knee- Primary Unspecified cirrhosis of liver (HCC) Malignant neoplasm of bladder, unspecified (HCC) documented in this encounter [facility]* Diagnosis Chronic pain of right knee- Primary documented in this encounter [facility]* Diagnosis Acute pain of right knee- Primary Acute internal derangement of right knee documented in this encounter [facility] Healthcare[facility]ospital course Narrative No data available for this section [facility] Discharge instructions No data available for this section [facility] Progress note No data available for this section [facility] Reason for visit Narrative* [place] Prior Authorization (Routine) - Authorized Specialty Diagnoses / Procedures Referred By Emilie murray Referred To Contact Hematology/Oncology / HEMONC INFUSION Diagnoses Bladder cancer (HCC) maintenence BCG x3 instill + remove fully and turn - ok per Dr Rowland Procedures BCG LIVE INTRAVESICAL INSTILLATION, 1 MG TREATMENT 3 HRS Darwin Llanos MD [address] [place] [address] [place] [address] Phone: tel: fax: Hematology/Oncology [address] [place] [address] [place] [address] Phone: tel: fax: Referral ID Status Reason Start Date Expiration Date V isits Requested Visits Authorized [id number] Authorized 10/26/2024 09/25/2025 3 99 [facility] Discharge Instructions * Instructions* Mary Barrett, RN [...] sent through Care Everywhere. 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 Advance Directives and Living Will Power of Wire Straightener Latest Code Status on File Code Status Date Activated Date Inactivated Comments Full Code 05/16/2019 10:02 AM Full Code 05/16/2019 6:22 AM 05/16/2019 10:02 AM Advance Directive Response Recorded Date/ Time Advance Directives No May 2:33pm Advance Directive Response Recorded Date/ Time Advance Directives No May 3:33pm Summary Purpose Family History No Family History Records Found Relationship Condition Age at Onset Recorded Date/T jayden father Unknown Malignant neoplasm Unknown Not Specified Malignant neoplasm Unknown Relationship Condition Age at Onset Recorded Date/T jayden father Unknown Malignant neoplasm Unknown mother Malignant neoplasm Unknown Chief Complaint and Reason for Visit Chief Complaint Admit Date Ref: liver cirrhosis December 31, 2024 9:0 6am K74.60 December 31, 2024 9:57 am Reason for Visit Admit Date Cirrhosis December 31, 2024 9:06 am Intra-abdominal varices December 31, 2024 9:06am Portal hypertension December 31, 2024 9:06 am Chief Complaint elevated psa prostat e nodule Chief Complaint Unknown Chief Complaint Unknown r97.20 n40.2 Chief Complaint Admit Date Ref: liver cirrhosis December 31, 2024 9:0 6am Chief Complaint Admit Date Ref: liver cirrhosis December 31, 2024 9:0 6am K74.60 December 31, 2024 9:57 am K74.60 January 04, 2025 10: 27am Chief Complaint Admit Date Ref: liver cirrhosis December 31, 2024 9:0 6am K74.60 December 31, 2024 9:57 am K74.60 January 04, 2025 10: 27am cirrhosis January 14, 2025 9:2 4am cirrhosis January 14, 2025 11: 05am Chief Complaint Admit Date Ref: liver cirrhosis December 31, 2024 9:0 6am K74.60 December 31, 2024 9:57 am K74.60 January 04, 2025 10: 27am cirrhosis January 14, 2025 9:2 4am cirrhosis January 14, 2025 11: 05am 2 month follow up/Cirrhosis March 05 12:54pm Reason for Visit Admit Date Cirrhosis December 31, 2024 9:06 am Intra-abdominal varices December 31, 2024 9:06am Portal hypertension December 31, 2024 9:06 am Cirrhosis March 05, 2025 12:5 4pm Intra-abdominal varices March 05, 2025 12:54pm Portal hypertension March 05, 2025 12:5 4pm Reason for Referral Specialty Diagnoses / Procedures Referred By Emilie murray Referred To Contact Gastroenterology Diagnoses Malignant neoplasm of urinary bladder, unspecified site (HCC) Procedures CONSULT TO GASTROENTEROLOGY OFFICE/OUTPATIENT [facility] 60 MINUTES Darwin Quinteros MD [address] [place] [address] [place] [address] Referral ID Status Reason Start Date Expiration Date Visits Requested Visits Authorized [id number] Authorized PCP Requested Referral 11/23/2024 10/26/2025 1 1 Additional Source Comments Reason for Visit (unrecogniz ed section and content) Status Reason Specialty Diagnoses / Procedures Referre d By Contact Referred To Contact Diagnoses Cholelithiasis CHOLELITHIASIS Procedures UT LAP,CHOLECYSTECTOMY CHOLECYSTECTOMY LAPAROSCOPIC ROBOTIC Bg Humphrey MD [address] [place] [address] [facility] Reason Comments Bladder Cancer Consult Reason Comments First Time Treatment Education Specialty Diagnoses / Procedures Referred By Contac t Referred To Contact Hematology/Oncology / HEMONC INFUSION Diagnoses Bladder cancer (HCC) maintenence BCG x3 instill + remove fully and turn - ok per Dr Rowland Procedures BCG LIVE INTRAVESICAL INSTILLATION, 1 MG TREATMENT 3 HRS Darwin Llanos MD [address] [place] [address] [place] [address] [facility] [place] [place] [address] Referral ID Status Reason Start Date Expiration Date V isits Requested Visits Authorized [id number] Authorized 10/26/2024 09/25/2025 3 99 Reason Comments Care Coordination C1D1 treatment follo w up call Reason Comments Referral Information GI Reason Comments Care Coordination BCG update Reason Comments Lab Orders Reason Comments Bladder Cancer Reason Comments Patient Update Reason Comments Knee Pain Reason Onset Date Comments needs appt 04/01/2025 Reason Comments Pain Specialty Diagnoses / Procedures Referred By Contac t Referred To Contact Orthopaedic Surgery Diagnoses Chronic pain of right knee Brianna Velasco, CHARLES [address] [facility] [address] [place] [address] Phone: tel: fax: Jr. Santiago White, DO [address] [place] [address] Phone: tel: fax: Referral ID Status Reason Start Date Expiration Date V isits Requested Visits Authorized [id number] Closed Specialty Services Required 04/17/2025 10/14/2025 1 1 (unrecognized sect ion and content) No Status Records FoundNo Status Records FoundNo Status Records FoundNo Status Records FoundNo Status Records FoundNo Status Records FoundNo Status Records FoundNo Status Records FoundNo Status Records Found INFORMATION SOURCE (unrecogn ized section and content) DATE CREATED AUTHOR 05/18/2019 [facility] DATE CREATED AUTHOR AUTHOR'S ORGANIZ ATION 03/06/2023 [facility] DATE CREATED AUTHOR AUTHOR'S ORGANIZ ATION 01/24/2025 [facility] DATE CREATED AUTHOR AUTHOR'S ORGANIZ ATION 02/25/2025 [facility] DATE CREATED AUTHOR AUTHOR'S ORGANIZ ATION 04/04/2025 [facility] DATE CREATED AUTHOR AUTHOR'S ORGANIZ ATION 04/08/2025 [facility] DATE CREATED AUTHOR AUTHOR'S ORGANIZ ATION 04/10/2025 [facility] DATE CREATED AUTHOR AUTHOR'S ORGANIZ ATION 05/02/2025 [facility] dical Specialists EPIC Patient Care team informatio n (unrecognized section and content) Team Status: Active Member Role Status Dates Parth García II MD Primary Care Provider Active Team Status: Inactive Member Role Status Dates Parth García II MD Primary Care Provider Active Jarad Valdivia MD Attending Provider Active Team Status: Inactive Member Role Status Dates Jarad Valdivia MD Attending Provider Active St art: March 01, 2024 End: March 01, 2024 Team Status: Inactive Member Role Status Dates Jarad Valdivia MD Attending Provider Active St art: April 06, 2024 End: April 06, 2024 Parth García II MD Primary Care Provider Active Start: April 06, 2024 End: April 06, 2024 Recreational Specialist Relationship Specialty Start Date End Date Jarad Valdivia MD [address] [place] [address] Urology 10/12/24 Recreational Specialist Relationship Specialty Start Date End Date Jarad Valdivia MD [address] [place] [address] Urology 10/12/24 Recreational Specialist Relationship Specialty Start Date End Date Jarad Valdivia MD [address] [place] [address] Urology 10/12/24 Recreational Specialist Relationship Specialty Start Date End Date Parth García II, MD [address] [place] [address] [place] [address] PCP - General Internal Medicine 10/26/24 Jarad Valdivia MD [address] [place] [address] Urology 10/12/24 Recreational Specialist Relationship Specialty Start Date End Date Parth García II, MD [address] [place] [address] PCP - General Internal Medicine 10/26/24 Jarad Valdivia MD [address] [place] [address] Urology 10/12/24 Recreational Specialist Relationship Specialty Start Date End Date Parth García II, MD [address] [place] [address] PCP - General Internal Medicine 10/26/24 Jarad Valdivia MD [address] [place] [address] Urology 10/12/24 Recreational Specialist Relationship Specialty Start Date End Date Parth García II, MD [address] [place] [address] PCP - General Internal Medicine 10/26/24 Jarad Valdivia MD [address] [place] [address] Urology 10/12/24 Recreational Specialist Relationship Specialty Start Date End Date Parth García II, MD [address] [place] [address] PCP - General Internal Medicine 10/26/24 Jarad Valdivia MD [address] [place] [address] Urology 10/12/24 Nichole Grimes RN [address] [facility] [place] [address] Specialty Wink Cutter Operator Hematology/Oncology 10/31/24 Darwin Quinteros MD [address] [facility] [place] [address] Physician Hematology/Oncology 10/31/24 Recreational Specialist Relationship Specialty Start Date End Date Parth García II, MD [address] [place] [address] PCP - General Internal Medicine 10/26/24 Jarad Valdivia MD [address] [place] [address] Urology 10/12/24 Nichole Grimes RN [address] [facility] [place] [address] Specialty Wink Cutter Operator Hematology/Oncology 10/31/24 Darwin Quinteros MD [address] [facility] [place] [address] Physician Hematology/Oncology 10/31/24 Recreational Specialist Relationship Specialty Start Date End Date Parth García II, MD [address] [place] [address] PCP - General Internal Medicine 10/26/24 Jarad Valdivia MD [address] [place] [address] Urology 10/12/24 Nichole Grimes RN [address] [place] [address] Specialty Wink Cutter Operator Hematology/Oncology 10/31/24 Darwin Quinteros MD [address] [place] [address] Physician Hematology/Oncology 10/31/24 Recreational Specialist Relationship Specialty Start Date End Date Parth García II, MD [address] [place] [address] PCP - General Internal Medicine 10/26/24 Jarad Valdivia MD [address] [place] [address] Urology 10/12/24 Nichole Grimes RN [address] [place] [address] Specialty Wink Cutter Operator Hematology/Oncology 10/31/24 Darwin Quinteros MD [address] [place] [address] Physician Hematology/Oncology 10/31/24 Recreational Specialist Relationship Specialty Start Date End Date Parth García II, MD [address] [place] [address] PCP - General Internal Medicine 10/26/24 Jarad Valdivia MD [address] [place] [address] Urology 10/12/24 Nichole Grimes RN [address] [place] [address] Specialty Wink Cutter Operator Hematology/Oncology 10/31/24 Darwin Quinteros MD [address] [facility] [place] [address] Physician Hematology/Oncology 10/31/24 Kimberlee Rosenberg, LINE O SCRIBE OPERATOR Demo Specialist 11/06/24 Recreational Specialist Relationship Specialty Start Date End Date Parth García II, MD [address] [place] [address] PCP - General Internal Medicine 10/26/24 Jarad Valdivia MD [address] [place] [address] Urology 10/12/24 Nichole Grimes RN [address] [facility] [place] [address] Specialty Wink Cutter Operator Hematology/Oncology 10/31/24 Darwin Quinteros MD [address] [facility] [place] [address] Physician Hematology/Oncology 10/31/24 Kimberlee Rosenberg, DESIRE Demo Specialist 11/06/24 Recreational Specialist Relationship Specialty Start Date End Date Parth García II, MD [address] [place] [address] PCP - General Internal Medicine 10/26/24 Jarad Valdivia MD [address] [place] [address] Urology 10/12/24 Nichole Grimes RN [address] [facility] [place] [address] Specialty Wink Cutter Operator Hematology/Oncology 10/31/24 Darwin Quinteros MD [address] [facility] [place] [address] Physician Hematology/Oncology 10/31/24 Kimberlee Rosenberg LSW Demo Specialist 11/06/24 Recreational Specialist Relationship Specialty Start Date End Date Parth García II, MD [address] [address] PCP - General Internal Medicine 10/26/24 Jarad Valdivia MD [address] [place] [address] Urology 10/12/24 Nichole Grimes, RN [address] [facility] [place] [address] Specialty Wink Cutter Operator Hematology/Oncology 10/31/24 Darwin Quinteros MD [address] [facility] [place] [address] Physician Hematology/Oncology 10/31/24 Kimberlee Rosenberg LSW Demo Specialist 11/06/24 Team Status: Active Member Role Status Dates NON STAFF Primary Care Provider Active Team Status: Inactive Member Role Status Dates Kim Matute MD Attending Provider Active Start: December 31, 2024 End: December 31, 2024 NON STAFF Primary Care Provider Active Start: December 31, 2024 End: December 31, 2024 Team Status: Inactive Member Role Status Dates Parth García II MD Primary Care Provider Active Start: December 31, 2024 End: December 31, 2024 Kim Matute MD Attending Provider Active Start: December 31, 2024 End: December 31, 2024 Team Status: Inactive Member Role Status Dates Parth García II MD Primary Care Provider Active Start: January 04, 2025 End: January 04, 2025 Kim Matute MD Attending Provider Active Start: January 04, 2025 End: January 04, 2025 Team Status: Inactive Member Role Status Dates Kim Matute MD Attending Provider Active Start: January 14, 2025 End: January 14, 2025 Parth García II MD Primary Care Provider Active Start: January 14, 2025 End: January 14, 2025 Team Status: Active Member Role Status Dates Kim Matute MD Attending Provider, Other Provider Active Start: January 14, 2025 Parth García II MD Primary Care Provider Active Start: January 14, 2025 Recreational Specialist Relationship Specialty Start Date End Date Parth García II, MD [address] [place] [address] PCP - General Internal Medicine 10/26/24 Jarad Valdivia MD Urology 10/12/24 Nichole Grimes RN [address] [place] [address] Specialty Wink Cutter Operator Hematology/Oncology 10/31/24 Darwin Quinteros MD [address] [facility] [place] [address] Physician Hematology/Oncology 10/31/24 Kimberlee Rosenberg LSW Demo Specialist 11/06/24 Recreational Specialist Relationship Specialty Start Date End Date Parth García II, MD [address] [place] [address] PCP - General Internal Medicine 10/26/24 Jarad Valdivia MD Urology 10/12/24 Nichole Grimes, [place] [address] [place] [address] Specialty Wink Cutter Operator Hematology/Oncology 10/31/24 Darwin Quinteros MD [address] [place] [address] Physician Hematology/Oncology 10/31/24 Kimberlee Rosenberg, LINE O SCRIBE OPERATOR Demo Specialist 11/06/24 Recreational Specialist Relationship Specialty Start Date End Date Parth García II, MD [address] [place] [address] PCP - General Internal Medicine 10/26/24 Jarad Valdivia MD Urology 10/12/24 Nichole Grimes RN [address] [place] [address] Specialty Wink Cutter Operator Hematology/Oncology 10/31/24 Darwin Quinteros MD [address] [facility] [place] [address] Physician Hematology/Oncology 10/31/24 Kimberlee Rosenberg, LINE O SCRIBE OPERATOR Demo Specialist 11/06/24 Recreational Specialist Relationship Specialty Start Date End Date Parth García II, MD [address] [place] [address] PCP - General Internal Medicine 10/26/24 Jarad Valdivia MD Urology 10/12/24 Nichole Grimes RN [address] [place] [address] Specialty Wink Cutter Operator Hematology/Oncology 10/31/24 Darwin Quinteros MD [address] [place] [address] Physician Hematology/Oncology 10/31/24 Kimberlee Rosenberg, LINE O SCRIBE OPERATOR Demo Specialist 11/06/24 Recreational Specialist Relationship Specialty Start Date End Date Parth García II, MD [address] [place] [address] PCP - General Internal Medicine 10/26/24 Jarad Valdivia MD Urology 10/12/24 Nichole Grimes, RN [address] [facility] [place] [address] Specialty Wink Cutter Operator Hematology/Oncology 10/31/24 Darwin Quinteros MD [address] [facility] [place] [address] Physician Hematology/Oncology 10/31/24 Kimberlee Rosenberg LSW Demo Specialist 11/06/24 Recreational Specialist Relationship Specialty Start Date End Date Parth García II, MD [address] [place] [address] PCP - General Internal Medicine 10/26/24 Jarad Valdivia MD Urology 10/12/24 Nichole Grimes RN [address] [facility] [place] [address] Specialty Wink Cutter Operator Hematology/Oncology 10/31/24 Darwin Quinteros MD [address] [facility] [address] Physician Hematology/Oncology 10/31/24 Kimberlee Rosenberg LSW Demo Specialist 11/06/24 Team Status: Inactive Member Role Status Dates Kim Matute MD Attending Provider Active Start: March 05, 2025 End: March 05, 2025 Parth García II MD Primary Care Provider Active Start: March 05, 2025 End: March 05, 2025 Recreational Specialist Relationship Specialty Start Date End Date Parth García MD [address] [place] [address] PCP - General Internal Medicine 04/16/25 Recreational Specialist Relationship Specialty Start Date End Date Parth García MD [address] [place] [address] PCP - General Internal Medicine 04/16/25 Recreational Specialist Relationship Specialty Start Date End Date Parth García MD [address] [place] [address] PCP - General Internal Medicine 04/16/25 Goals (unrecognized section and content) Goals may be documented in a n alternate section Source Comments (unrecognize d section and content) In the event this informatio n is protected by the Federal Confidentiality of Alcohol and Drug Abuse Patient Records regulations: The Federal rules restrict any use of the information to criminally investigate or prosecute any alcohol or drug abuse patient.[facility] the event this information is protected by the Federal Confidentiality of Alcohol and Drug Abuse Patient Records regulations: The Federal rules restrict any use of the information to criminally investigate or prosecute any alcohol or drug abuse patient.[facility] CampusIn the event this information is protected by the Federal Confidentiality of Alcohol and Drug Abuse Patient Records regulations: The Federal rules restrict any use of the information to criminally investigate or prosecute any alcohol or drug abuse patient.[facility] CampusIn the event this information is protected by the Federal Confidentiality of Alcohol and Drug Abuse Patient Records regulations: The Federal rules restrict any use of the information to criminally investigate or prosecute any alcohol or drug abuse patient.[facility] CampusIn the event this information is protected by the Federal Confidentiality of Alcohol and Drug Abuse Patient Records regulations: The Federal rules restrict any use of the information to criminally investigate or prosecute any alcohol or drug abuse patient.[facility] CampusIn the event this information is protected by the Federal Confidentiality of Alcohol and Drug Abuse Patient Records regulations: The Federal rules restrict any use of the information to criminally investigate or prosecute any alcohol or drug abuse patient.[facility] CampusIn the event this information is protected by the Federal Confidentiality of Alcohol and Drug Abuse Patient Records regulations: The Federal rules restrict any use of the information to criminally investigate or prosecute any alcohol or drug abuse patient.[facility] CampusIn the event this information is protected by the Federal Confidentiality of Alcohol and Drug Abuse Patient Records regulations: The Federal rules restrict any use of the information to criminally investigate or prosecute any alcohol or drug abuse patient.[facility] CampusIn the event this information is protected by the Federal Confidentiality of Alcohol and Drug Abuse Patient Records regulations: The Federal rules restrict any use of the information to criminally investigate or prosecute any alcohol or drug abuse patient.[facility] CampusIn the event this information is protected by the Federal Confidentiality of Alcohol and Drug Abuse Patient Records regulations: The Federal rules restrict any use of the information to criminally investigate or prosecute any alcohol or drug abuse patient.[facility] CampusIn the event this information is protected by the Federal Confidentiality of Alcohol and Drug Abuse Patient Records regulations: The Federal rules restrict any use of the information to criminally investigate or prosecute any alcohol or drug abuse patient.[facility] CampusIn the event this information is protected by the Federal Confidentiality of Alcohol and Drug Abuse Patient Records regulations: The Federal rules restrict any use of the information to criminally investigate or prosecute any alcohol or drug abuse patient.[facility] CampusIn the event this information is protected by the Federal Confidentiality of Alcohol and Drug Abuse Patient Records regulations: The Federal rules restrict any use of the information to criminally investigate or prosecute any alcohol or drug abuse patient.[facility] CampusIn the event this information is protected by the Federal Confidentiality of Alcohol and Drug Abuse Patient Records regulations: The Federal rules restrict any use of the information to criminally investigate or prosecute any alcohol or drug abuse patient.[facility] CampusIn the event this information is protected by the Federal Confidentiality of Alcohol and Drug Abuse Patient Records regulations: The Federal rules restrict any use of the information to criminally investigate or prosecute any alcohol or drug abuse patient.[facility] CampusIn the event this information is protected by the Federal Confidentiality of Alcohol and Drug Abuse Patient Records regulations: The Federal rules restrict any use of the information to criminally investigate or prosecute any alcohol or drug abuse patient.[facility] CampusIn the event this information is protected by the Federal Confidentiality of Alcohol and Drug Abuse Patient Records regulations: The Federal rules restrict any use of the information to criminally investigate or prosecute any alcohol or drug abuse patient.[facility] CampusIn the event this information is protected by the Federal Confidentiality of Alcohol and Drug Abuse Patient Records regulations: The Federal rules restrict any use of the information to criminally investigate or prosecute any alcohol or drug abuse patient.[facility] CampusIn the event this information is protected by the Federal Confidentiality of Alcohol and Drug Abuse Patient Records regulations: The Federal rules restrict any use of the information to criminally investigate or prosecute any alcohol or drug abuse patient.[facility] CampusIn the event this information is protected by the Federal Confidentiality of Alcohol and Drug Abuse Patient Records regulations: The Federal rules restrict any use of the information to criminally investigate or prosecute any alcohol or drug abuse patient.[facility] CampusIn the event this information is protected by the Federal Confidentiality of Alcohol and Drug Abuse Patient Records regulations: The Federal rules restrict any use of the information to criminally investigate or prosecute any alcohol or drug abuse patient.[facility] CampusIn the event this information is protected by the Federal Confidentiality of Alcohol and Drug Abuse Patient Records regulations: The Federal rules restrict any use of the information to criminally investigate or prosecute any alcohol or drug abuse patient.[facility] CampusIn the event this information is protected by the Federal Confidentiality of Alcohol and Drug Abuse Patient Records regulations: The Federal rules restrict any use of the information to criminally investigate or prosecute any alcohol or drug abuse patient.[facility] FOR RECORDS PERTAINING TO PATIENTS WHO ARE [...] BE BASED ON THE PRIMARY CLINICAL RECORDS. [facility]. provides no warranty or guarantee of the accuracy or completeness of information in this document.
== END 2025-05-10 06:49 | disposition home or self-care (01) ==
LOC: MRI 06:48
PROVIDERS: PCP Internal Medicine; Visit Provider Personal Emergency Response Attendant
DX: M23.91 Unspecified internal derangement of right knee (principal); S83.241A Other tear of medial meniscus, current injury, right knee, initial encounter; M25.461 Effusion, right knee
CPT/HCPCS: 73721

== ENCOUNTER 2025-05-10 07:37 | Outpatient (RCR) | payer OTHER, SELFPAY ==
[2025-05-10 07:57] VITALS: BP 143/80; PULSE 70; TEMP 36.6; O2SAT 98
[2025-05-10 08:19] VITALS: BP 143/80; PULSE 70; TEMP 36.6; O2SAT 98
[2025-05-10 08:27] LABS: Hematocrit 42.5 % (42.0-54.0); Hemoglobin 14.5 g/dL (14.0-18.0); Immature Granulocytes Abs Auto 0.01 10^3/uL (0.00-0.03); Immature Granulocytes Pct Auto 0.2 % (0.0-0.5); Lymphocytes Absolute Auto 1.0 10^3/uL (1.2-3.8); Mean Corpuscular HGB Conc 34.1 g/dL (29.9-35.2); Mean Corpuscular Hemoglobin 30.1 pg (25.9-34.0); Mean Corpuscular Volume 88.2 fL (80.0-94.0); Platelet Count 173 10^3/uL (150-450); Red Blood Count 4.82 10^6/uL (4.70-6.10); White Blood Count 4.9 10^3/uL (4.0-11.0)
[2025-05-10 08:34] LABS: Alanine Aminotransferase 19 U/L (16-63); Albumin Globulin Ratio 1.0; Albumin Level 3.6 g/dL (3.4-5.0); Alkaline Phosphatase 68 U/L (46-116); Anion Gap 9.9; Aspartate Amino Transferase 10 U/L (15-37); Blood Urea Nitrogen 15.0 mg/dL (7.0-18.0); Calcium 8.8 mg/dL (8.5-10.1); Carbon Dioxide 30.4 mmol/L (21.0-32.0); Chloride 108 mmol/L (98-107); Estimated GFR (African America >60 (>=60 mL/min/1.73m^2); Estimated GFR (Non-African Ame >60 (>=60 mL/min/1.73m^2); Globulin 3.5 g/dL; Glucose 83 mg/dL (74-106); Potassium 4.3 mmol/L (3.5-5.1); Sodium 144 mmol/L (136-145); Total Protein 7.1 g/dL (6.4-8.2)
[2025-05-10 08:41] LABS: Magnesium 2.1 mg/dL (1.8-2.4); TSH W/ REFLEX FT4 2.390 uIU/mL (0.358-3.740)
[2025-05-10] MEDS: 0.9 % SODIUM CHLORIDE 250 ML 10 ML IV (09:45)
== END 2025-05-26 23:59 | disposition home or self-care (01) ==
LOC: HEMC 07:37
PROVIDERS: PCP Internal Medicine; Visit Provider Internal Medicine Hematology & Oncology
DX: Z51.11 Encounter for antineoplastic chemotherapy (principal); C67.8 Malignant neoplasm of overlapping sites of bladder; D72.819 Decreased white blood cell count, unspecified; Z15.09 Genetic susceptibility to other malignant neoplasm; Z84.81 Family history of carrier of genetic disease; Z80.0 Family history of malignant neoplasm of digestive organs; M23.91 Unspecified internal derangement of right knee; S83.241A Other tear of medial meniscus, current injury, right knee, initial encounter; M25.461 Effusion, right knee
CPT/HCPCS: 36415; 73721; 80053; 83735; 84443; 85025; 96413; J9271

== ENCOUNTER 2025-05-24 08:12 | Outpatient (OUT) | payer OTHER, SELFPAY ==
[2025-05-24 11:01] LABS: Hematocrit 43.5 % (42.0-54.0); Hemoglobin 15.2 g/dL (14.0-18.0); Immature Granulocytes Abs Auto 0.01 10^3/uL (0.00-0.03); Immature Granulocytes Pct Auto 0.2 % (0.0-0.5); Lymphocytes Absolute Auto 0.9 10^3/uL (1.2-3.8); Mean Corpuscular HGB Conc 34.9 g/dL (29.9-35.2); Mean Corpuscular Hemoglobin 30.2 pg (25.9-34.0); Mean Corpuscular Volume 86.3 fL (80.0-94.0); Platelet Count 183 10^3/uL (150-450); Red Blood Count 5.04 10^6/uL (4.70-6.10); White Blood Count 5.4 10^3/uL (4.0-11.0)
[2025-05-24 11:44] LABS: Alanine Aminotransferase 20 U/L (16-63); Albumin Globulin Ratio 0.9; Albumin Level 3.7 g/dL (3.4-5.0); Alkaline Phosphatase 70 U/L (46-116); Anion Gap 12.4; Aspartate Amino Transferase 13 U/L (15-37); Blood Urea Nitrogen 16.0 mg/dL (7.0-18.0); Calcium 9.0 mg/dL (8.5-10.1); Carbon Dioxide 25.7 mmol/L (21.0-32.0); Chloride 107 mmol/L (98-107); Estimated GFR (African America >60 (>=60 mL/min/1.73m^2); Estimated GFR (Non-African Ame >60 (>=60 mL/min/1.73m^2); Globulin 4.0 g/dL; Glucose 95 mg/dL (74-106); Magnesium 1.8 mg/dL (1.8-2.4); Potassium 4.1 mmol/L (3.5-5.1); Sodium 141 mmol/L (136-145); TSH W/ REFLEX FT4 2.375 uIU/mL (0.358-3.740); Total Protein 7.7 g/dL (6.4-8.2)
== END 2025-05-24 08:13 | disposition home or self-care (01) ==
PROVIDERS: PCP Internal Medicine; Visit Provider Internal Medicine Hematology & Oncology
DX: D72.819 Decreased white blood cell count, unspecified (principal); C67.8 Malignant neoplasm of overlapping sites of bladder; Z15.09 Genetic susceptibility to other malignant neoplasm; Z84.81 Family history of carrier of genetic disease; Z80.0 Family history of malignant neoplasm of digestive organs
CPT/HCPCS: 36415; 80053; 83735; 84443; 85025

== ENCOUNTER 2025-06-25 08:45 | Outpatient (RCR) | payer OTHER, SELFPAY ==
--- OUTSIDE RECORDS SUMMARY | 2025-05-17 09:45 | XMS_ITS | Encounter Summary ---
Author Organization [facility] Address [address] [place] [address] Care Team Providers Care Wireless Team Member Name Role Phone Parth García MD Primary Care Provider [phone] Reason for Visit * Reason Comments Follow-up Encounter Details Date Type Department Care Team ([facility] st Contact Info) Description 05/17/2025 9:45 AM EDT Office Visit [facility] [address] [facility] [place] [address] Jr. Santiago White, DO [address] [facility] [address] [place] [address] Acute pain of right knee (Primary Dx); Acute internal derangement of right knee Social History Tobacco Use Types Packs/Day Years Used Date Smoking Tobacco: Former Cigarettes 1 18.7 2 007 - 03/22/2005 Smokeless Tobacco: Never [...] How often do you attend chur or amish services? Patient declined 03/21/2025 Do you belong to any clubs o r organizations such as shinto groups, unions, fraternal or athletic groups, or [...] Recorded Patient Health Questionnaire-2 Score 0 04/05/2025 [facility] - [facility] [...] money to buy more. Never true 03/21/20 Within the past 12 months, t he [...] time in the past 12 m [facility], were you homeless or living in a custodial (including now)? No 03/21/2025 Sex and Gender Information Value Date Recorded Sex Assigned at Not on file Legal Sex Male 6:46 PM EDT Gender Identity Not on file Sexual Orientation Not on file documented as of this encounter Progress Notes * Jr. Santiago White, - 05/17/2025 9:45 AM EDT Images from the original note were not included. HISTORY OF PRESENT ILLNESS: EST PT See Rosenberg is an 59 y.o. @ male. (EST PT W/ JAYDEN GREY) - RECHECK RT KNEE PAIN - S/P MRI DONE ON 05/10/25 @ [facility]. 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 Limp: right Inspection Leg length disparity: no discrepancy Right Erythema: none Effusion: mild Edema: none Ecchymosis: none Deformity: none Alignment: normal Palpation Right Increased warmth: none Masses: none Tenderness: present Medial joint line: moderate Range of Motion Right Right knee range of motion is normal and full. Active extension: 5 Passive extension: 0 Active flexion: 115 Passive flexion: 125 Range of motion additional [...] affect Neurological: alert Skin: intact Lymphadenopathy: none Vitals: There is no height or weight on file to calculate BMI. Tobacco Use: Medium Risk (05/17/2025) Patient History Smoking Tobacco Use: Former Smokeless Tobacco Use: Never Passive Exposure: Not on file Alcohol Use: Not At Risk (03/21/2025) AUDIT-C Frequency of Alcohol Consumption: Never Average Number of Drinks: Patient does not drink Frequency of Binge Drinking: Never IMAGING: Procedures No orders of the defined types were placed in this encounter. ASSESSMENT: ICD-10-CM 1. Acute pain of right knee M25.561 2. Acute internal derangement of right knee M23.91 PLAN: We have discussed his symptoms, MRI, x-rays and physical exam today at length. He has a medial meniscus tear and we have recommended a diagnostic and operative arthroscopy. We will see him back on the day of surgery. Patient understands the risks and benefits of a diagnostic and operative arthroscopy of his right knee. We have discussed both surgical and nonsurgical treatment options with the patient and the risks and benefits associated with both. The patient is requesting surgical intervention because the patient's symptoms were affecting the patient's activities of daily living and ability to sleep. The patient's symptoms were unresponsive to outpatient treatment options. After lengthy discussions involving but not limited to both surgical and nonsurgical treatment options the patient has requested surgical intervention and we will see them back on the day of surgery. The patient understands the risks ofsaid treatment. Questions answered in laymen terms at the bedside. The diagnosis, home exercise plan and any ongoing restrictions/ recommendations reviewed. If unable to be reached in office, I recommend evaluation at nearest Emergency Room if any symptoms worsened or new symptoms develop for requiring urgent evaluation. documented in this encounter Plan of Treatment Not on file documented as of this encounter Visit Diagnoses Diagnosis Acute pain of right knee- Primary Acute internal derangement of right knee documented in this encounter Care Teams Wireless Team Member Relationship Specialty Start Date End Date Parth García MD [address] [facility] [address] [place] [address] PCP - General Internal Medicine 04/16/25 documented as of this encounter
--- OUTSIDE RECORDS SUMMARY | 2025-05-28 14:18 | XMS_ITS | Clinical Summary ---
Author Organization [facility] Address [address] [place] [address] Care Team Providers Care Ground Operations Supervisor Name Role Phone Parth García MD Primary Care Provider [phone] Allergies No known active allergies Medications alfuzosin [...] Encounters Date Type Department Care Team Description 05/28/2025 Abstract [facility] [address] [facility] 110 [place] [phone] Parth García MD 05/24/2025 Clinisync Result Encounter NOMS External Department Unsolicited Provider, Generic External Data 05/17/2025 9:45 AM EDT Office Visit [facility] [address] [place] [address] Stepanic, Jr. Santiago C, DO Acute pain of right knee (Primary Dx); Acute internal derangement of right knee 05/17/2025 Telephone [facility] [address] [facility] [place] [address] Karma Sol MA Optimized for Surgery 05/17/2025 Bamboo flowsheet [facility] [address] [place] [address] Jr. Santiago White, 05/17/2025 Travel 05/10/2025 Results Follow-Up [facility] [address] [place] [phone] Matthew Sanchez PA MR KNEE RT WO CON 05/10/2025 Clinisync Result Encounter NOMS External Department Unsolicited Matthew Sanchez PA 04/26/2025 10:35 AM EDT Ancillary Procedure [facility] [address] [place] [phone] 04/26/2025 10:30 AM EDT Office Visit [facility] [address] [facility] [place] [address] Matthew Sanchez PA Acute pain of right knee (Primary Dx); Acute internal derangement of right knee 04/26/2025 Bamboo flowsheet [facility] [address] [place] [address] Matthew Sanchez PA 04/26/2025 Travel 04/16/2025 Clinisync Result Encounter NOMS External Department Unsolicited Provider, Generic External Data 04/15/2025 Telephone [facility] [address] [place] [address] [place] [phone] Unallocated, Jayy Lockett MD 04/08/2025 Abstract [facility] [address] [place] [address] [place] [phone] Unallocated, Jayy Lockett MD 04/05/2025 11:00 AM EDT Office Visit [facility] [address] [facility] [address] [place] [address] Brianna Kaur PA Chronic pain of right knee (Primary Dx) 04/05/2025 Clinisync Result Encounter NOMS External Department Unsolicited Provider, Generic External Data 04/05/2025 Bamboo flowsheet [facility] [address] [facility] [address] [place] [address] Brianna Kaur PA 04/05/2025 Travel 04/01/2025 Telephone [facility] [address] [facility] [address] [place] [address] Unallocated, Noms MD Cathryn needs appt 03/28/2025 Abstract [facility] [address] [facility] [address] [place] [address] Parth García MD 03/22/2025 9:15 AM EDT Office Visit [facility] [address] [facility] 110 [place] [address] Parth García MD Pes anserinus bursitis of right knee (Primary Dx); Unspecified cirrhosis of liver (HCC); Malignant neoplasm of bladder, unspecified (HCC) 03/22/2025 Clinisync Result Encounter NOMS External Department Unsolicited Provider, Generic External Data 03/22/2025 Bamboo flowsheet [facility] [address] [facility] [address] [place] [address] Parth García MD 03/22/2025 Travel 03/21/2025 Travel 03/05/2025 Abstract [facility] [address] [facility] [address] [place] [address] Unallocated, Noms MD Cathryn from Last 3 Months Immunizations Immunization Administration [...] How often do you attend chur or hinduism services? Patient declined 03/21/2025 Do you belong to any clubs o r organizations such as synagogue groups, unions, fraternal or athletic groups, or [...] Recorded Patient Health Questionnaire-2 Score 0 04/05/2025 [facility] - Occupational Stress [...] any time in the past 12 m [facility], were you homeless or living in a chcf (including now)? No 03/21/2025 Sex and Gender [...] 04/05/2025 10:55 AM EDT Plan of Treatment Health Maintenance Due Date Last Done Comments CT Colonography 1965 Colonoscopy 1965 FIT 1965 FOBT 1965 Sigmoidoscopy 1965 Influenza Vaccine (#1) 2025 Colorectal Cancer Screening 11/28/2025 FIT-DNA 11/28/2025 11/28/2022, 11/28/2022 Procedures Procedure Name Priority Date/Time Associated Diagnosis Comments TSH W/REFLEX T4 Routine 05/24/2025 10:41 AM EDT ALL MAGNESIUM Routine 05/24/2025 10:41 AM EDT [facility] CMP (CMP) (FOR REMOTE [facility] USE) Routine 05/24/2025 10:41 AM EDT ALL CBC WITH AUTO DIFF Routine 10:41 AM EDT MR KNEE RT WO CON 05/10/2025 8:2 8 AM EDT TSH W/REFLEX T4 Routine 05/10/2025 8:05 AM EDT ALL MAGNESIUM Routine 05/10/2025 8:05 AM EDT [facility] CMP (CMP) (FOR REMOTE [facility] USE) Routine 05/10/2025 8:05 AM EDT ALL CBC WITH AUTO DIFF Routine 8:05 AM EDT XR KNEE 1-2 VIEWS RIGHT Routine 04/26/20 10:31 AM EDT Acute pain of right knee TSH W/REFLEX T4 Routine 04/16/2025 1:30 PM EDT ALL MAGNESIUM Routine 04/16/2025 1:30 PM EDT [facility] CMP (CMP) (FOR REMOTE [facility] USE) Routine 04/16/2025 1:30 PM EDT ALL CBC WITH AUTO DIFF Routine 1:30 PM EDT IA ARTHROCENTESIS ASPIR&/INJ MAJOR JT/BURSA W/O US Routine 04/05/2025 11:14 AM EDT Chronic pain of right knee ALL TESTOSTERONE Routine 04/05/2025 9:54 AM EDT MHPT PSA, DIAGNOSTIC Routine 03/22/2025 2:18 PM EDT LAB COLOGUARD COLON CANCER SCREEN Routine 11/28/2022 from Last 3 Months or Most Recently Relevant to Health Maintenance Results * TSH W/REFLEX T4 (05/24/2025 10:41 AM EDT) Only the most recent of3 resultswithin the time period is included. TSH 2.375 0.358 - 3.740 uIU/mL TBH 05/24/2025 10:4 1 AM EDT 05/24/2025 10:44 AM EDT Narrative CLINISYNC - 05/24/2025 11:56 AM EDT us Generic External Data Provider LAB BLOOD ORDERAB LES Final Result [facility] * (ABNORMAL) [facility] CMP (CMP) (FOR REMOTE [facility] USE) (05/24/2025 10:41 AM EDT) Only the most recent of3 resultswithin the time period is included. SODIUM 141 136 - 145 mmol/L TBH POTASSIUM 4.1 3.5 - 5.1 mmol/L TBH CHLORIDE 107 98 - 107 mmol/L TBH CARBON DIOXIDE 25.7 21.0 - 32.0 mmol/L TBH ANION GAP 12.4 TBH GLUCOSE 95 74 - 106 mg/dL TBH BLOOD UREA NITROGEN 16.0 7.0 - 18.0 mg/dL TBH CREATININE 1.11 0.70 - 1.30 mg/dL TBH TBH EGFR-AF KYRGYZ >60 >=60 mL/min/1. 73m 2 TBH TBH EGFR-NON AF KYRGYZ >60 >=60 mL/min/1. 73m 2 TBH BUN CREATININE RATIO 14.4 TBH CALCIUM 9.0 8.5 - 10.1 mg/dL TBH BILIRUBIN TOTAL 0.6 0.2 - 1.0 mg/dL TBH ASPARTATE AMINO TRANSFERASE 13(L) 15 - 37 U/L TBH ALANINE AMINOTRANSFERASE 20 16 - 63 U/L TBH ALKALINE PHOSPHATASE 70 46 - 116 U/L TBH TOTAL PROTEIN 7.7 6.4 - 8.2 g/dL TBH ALBUMIN LEVEL 3.7 3.4 - 5.0 g/dL TBH GLOBULIN 4.0 g/dL TBH ALBUMIN GLOBULIN RATIO 0.9 TBH 05/24/2025 10:4 1 AM EDT 05/24/2025 10:44 AM EDT Narrative CLINISYNC - 05/24/2025 11:56 AM EDT us Generic External Data Provider CLINISYNC F inal Result [facility] * ALL MAGNESIUM (05/24/2025 10:41 AM EDT) Only the most recent of3 resultswithin the time period is included. MAGNESIUM 1.8 1.8 - 2.4 mg/dL TBH 05/24/2025 10:4 1 AM EDT 05/24/2025 10:44 AM EDT Narrative RAD - 05/24/2025 11:56 AM EDT us Generic External Data Provider ROSANNEARMANDONITIN Bubba lalitha Result RAD [facility] * (ABNORMAL) ALL CBC WITH AUTO DIFF (05/24/2025 10:41 AM EDT) Only the most recent of3 resultswithin the time period is included. TBH WBC 5.4 4.0 - 11.0 10 3/uL TBH TBH RBC 5.04 4.70 - 6.10 10 6/uL TBH TBH HGB 15.2 14.0 - 18.0 g/dL TBH TBH HCT 43.5 42.0 - 54.0 % TBH TBH MCV 86.3 80.0 - 94.0 fL TBH TBH MCH 30.2 25.9 - 34.0 pg TBH TBH MCHC 34.9 29.9 - 35.2 g/dL TBH TBH RDW 12.4 11.0 - 15.0 % TBH TBH PLT 183 150 - 450 10 3/uL TBH TBH MPV 9.3(L) 9.5 - 13.5 fL TBH NEUTROPHILS PERCENT AUTO 74.1 43.0 - 75.0 % TBH LYMPHOCYTES PERCENT AUTO 17.5(L) 20.5 - 60.0 % TBH MONOCYTES PERCENT AUTO 7.6 1.7 - 12.0 % TBH TBH EO % 0.0(L) 0.9 - 7.0 % TBH BASOPHILS PERCENT AUTO 0.6 0.2 - 2.0 % TBH IMMATURE GRANULOCYTES PCT AUTO 0.2 0.0 - 0.5 % TBH NEUTROPHILS ABSOLUTE AUTO 4.0 1.4 - 6.5 10 3/uL TBH LYMPHOCYTES ABSOLUTE AUTO 0.9(L) 1.2 - 3.8 10 3/uL TBH MONOCYTES ABSOLUTE AUTO 0.4 0.3 - 0.8 10 3/uL TBH TBH EO # 0.0 0.0 - 0.7 10 3/uL TBH BASOPHILS ABSOLUTE AUTO 0.0 0.0 - 0.1 10 3/uL TBH IMMATURE GRANULOCYTES ABS AUTO 0.01 0.00 - 0.03 10 3/uL TB 05/24/2025 10:4 1 AM EDT 05/24/2025 10:44 AM EDT Narrative RAD - 05/24/2025 11:02 AM EDT us Generic External Data Provider CLINISYNC F inal Result [facility] * MR KNEE RT WO CON (05/10/2025 8:28 AM EDT) Anatomical Region Laterality Modality Other 05/10/2025 8:28 AM EDT Narrative 05/10/2025 8:31 AM EDT [place] [id number] Magnetic Resonance Report Signed Patient: VENITA HOFFMAN MR#: [id number] : 1965 Acct:[id number] Age/Sex: 59 / M ADM Date: 05/10/25 Loc: MRI Attending Dr: Matthew SOTO Ordering Physician: Matthew Sanchez Date of Service: 05/10/25 Procedure(s): MR knee RT wo con Accession Number(s): [id number] cc: PARTH GARCÍA ; Matthew Sanchez [place] [id number] Patient Name: VENITA HOFFMAN MRN: [facility]:[id number] date: 1965 Sex: M Assigned Patient Location: MRI Current Patient Location: [facility] Accession/Order Number: [id number] Exam Date: 05/10/2025 08:22 Report Date: 05/10/2025 08:28 At the request of: MATTHEW SOTO Procedure: MR knee RT wo con EXAMINATION: MRI OF THE RIGHT KNEE CLINICAL DATA: Chronic right medial knee pain for 3 months. No known injury. COMPARISON: none TECHNIQUE: Multiecho, multiplanar imaging was performed with use of an extremity coil. No contrast was administered. FINDINGS: Joint:Moderate joint effusion. Articular cartilage of the patella appears unremarkable. Articular cartilage appears thinned without focal defect involving the medial condyle of the femur. There is significant bone marrow edema involving the medial condyle of the femur. No fracture line is seen. Small amount of bone marrow edema is seen involving the tibial spines. No fracture is seen in this region. Soft tissues: Normal Quadriceps/Patellar tendon/retinaculum: Normal Muscles: Normal ACL:Normal PCL:Normal Medial Meniscus:Tear posterior horn Lateral Meniscus:Normal MCL:Normal LCL complex: Normal MR/MR knee RT wo con IMPRESSION: LARGE AMOUNT OF BONE MARROW EDEMA SEEN INVOLVING THE MEDIAL CONDYLE OF THE FEMUR WITHOUT FRACTURE. THERE IS ASSOCIATED TEAR INVOLVING THE POSTERIOR HORN OF THE MEDIAL MENISCUS WELL MODERATE JOINT EFFUSION. SMALL AMOUNT OF BONE MARROW EDEMA ALONG THE TIBIAL SPINES WITHOUT FRACTURE. ACL APPEARS INTACT.. Impression dictated by: Leonardo Mitchell Jr., D.O. 05/10/2025 8:28 AM Dictation Location: [place] [address] Electronically authenticated by: [id number] Y Date: 05/10/2025 08:28 Dictated By: Leonardo Mitchell M.D. Signed By: 05/10/25830 DD/ 7 TD/TT: Library Serials Assistant: Procedure Note Radiology, Radiologist, MD - 05/10/2025 [place] [address] Magnetic Resonance Report Signed Patient: VENITA HOFFMAN SMR#: [id number] : 1965Acct:[id number] Age/Sex: 59 / MADM Date: 05/10/25 Loc: MRI Attending Dr: Matthew SOTO Ordering Physician: Matthew Sanchez Date of Service: 05/10/25 Procedure(s): MR knee RT wo con Accession Number(s): [id number] cc: PARTH GARCÍA ; [place] Sanchez [place] [id number] Patient Name: VENITA HOFFMAN MRN: [id number] date: 1965 Sex: M Assigned Patient Location: MRI Current Patient Location: [facility] Accession/Order Number: [id number] Exam Date: 05/10/2025 08:22 Report Date: 05/10/2025 08:28 At the request of: MATTHEW SOTO Procedure: MR knee RT wo con EXAMINATION: MRI OF THE RIGHT KNEE CLINICAL DATA: Chronic right medial knee pain for 3 months. No knowninjury. COMPARISON: none TECHNIQUE: Multiecho, multiplanar imaging was performed with use of an extremity coil. No contrast was administered. FINDINGS: Joint:Moderate joint effusion. Articular cartilage of the patella appears unremarkable. Articular cartilage appears thinned without focal defect involving the medial condyle of the femur. There is significant bonemarrow edema involving the medial condyle of the femur. No fracture line isseen. Small amount of bone marrow edema is seen involving the tibial spines. No fracture is seen in this region. Soft tissues: Normal Quadriceps/Patellar tendon/retinaculum: Normal Muscles: Normal ACL:Normal PCL:Normal Medial Meniscus:Tear posterior horn Lateral Meniscus:Normal MCL:Normal LCL complex: Normal MR/MR knee RT wo con IMPRESSION: LARGE AMOUNT OF BONE MARROW EDEMA SEEN INVOLVING THE MEDIAL CONDYLE OF THE FEMUR WITHOUT FRACTURE. THERE IS ASSOCIATED TEAR INVOLVING THE POSTERIORHORN OF THE MEDIAL MENISCUS WELL MODERATE JOINT EFFUSION. SMALL AMOUNT OF BONE MARROW EDEMA ALONG THE TIBIAL SPINES WITHOUTFRACTURE. ACL APPEARS INTACT.. Impression dictated by: Leonardo Mitchell Jr., D.O. 05/10/2025 8:28 AM Dictation Location: [place] [address] Electronically authenticated by: [id number] Y Date: 508:28 Dictated By: Leonardo Mitchell M.D. Signed By:05/10/2531 DD/ 7 TD/TT: Library Serials Assistant: Matthew SOTO CLINISYNC IMAGING Final Resul t * XR knee 1 or 2 views right (04/26/2025 10:31 AM EDT) Anatomical Region Laterality Modality Lower Extremities, Knee Right [facility] Narrative 04/27/2025 8:14 AM EDT Imaging [...] knee X-ray. No acute bony process us Matthew SOTO IMG XR PROCEDURES Final Resul t * IA ARTHROCENTESIS ASPIR&/INJ MAJOR JT/BURSA W/O US (04/05/2025 [...] * ALL TESTOSTERONE (04/05/2025 9:54 AM EDT) TESTOSTERONE 906 264 - 916 ng/dL [facility] Comment: Adult male reference interval is based on a population of healthy nonobese males (BMI <30) between 19 and 39 years old. Glory, et.al. JCEM 2017,102;1248-1560. PMID: [id number]. Performed at: [address] [id number] Door Assembler: Landon Austin PhD, Phone: [phone] 04/05/2025 9:54 AM EDT 04/05/2025 9:55 AM EDT Narrative CLINISYNC - 04/06/2025 4:09 AM EDT Generic External Data Provider CLINISYNC F inal Result RAD TB * (ABNORMAL) MHPT PSA, DIAGNOSTIC (03/22/2025 2:18 PM EDT) PROSTATE SPECIFIC ANTIGEN DX 7.60(H) <=4.00 ng/mL TBH 03/22/2025 2:18 PM EDT 03/22/2025 2:19 PM EDT Narrative CLINISYNC - 03/22/2025 3:49 PM EDT Generic External Data Provider CLINISYNC F inal Result RAD TB * Cologuard?? colon cancer screening (11/28/2022) COLOGUARD [...] (Jj Yanez al, N Engl J Med 2014;370(14):2360-6463) The normal value (reference range) for this assay is negative. COLOGUARD RE-SCREENING RECOMMENDATION: Periodic colorectal cancer screening is an important part of preventive healthcare for asymptomatic individuals at average risk for colorectal cancer. Following a negative Cologuard result, the [place] [employer] and U.S. Multi-Society Task Force screening guidelines recommend a Cologuard re-screening interval of 3 years. References: [place] [employer] Guideline for Colorectal Cancer Screening: https://www.cancer.org/cancer/jcjkk-drpbrj-mcbmwi/kjxpibljb-amtjjnvwv-jhduyvl/ac s-rec ommendations.html.; Edil DK, Kathleen CR, Maira OlivasK, Colorectal Cancer Screening: Recommendations for Physicians and Patients from the U.S. Multi-Society Task Force on Colorectal Cancer Screening , Am J Gastroenterology 2017; 112:5656-5555. TEST DESCRIPTION: Composite algorithmic analysis of stool [...] (Jj Yanez al, N Engl J Med 2014;370(14):6745-9240.) Cologuard may produce a false negative or false positive result (no colorectal cancer or precancerous polyp present at colonoscopy follow up). A negative Cologuard test result does not guarantee the absence of CRC or advanced adenoma (pre-cancer). The current Cologuard screening interval is every 3 years. ([place] [employer] and U.S. Multi-Society Task Force). Cologuard performance data in a 10,000 patient pivotal study using colonoscopy as the reference method can be accessed at the following location: www.MeterHero.Haul Zing./results. Additional description of the Cologuard test process, warnings and precautions can be found at www.Presidio.Haul Zing.. 11/28/2022 us Parth García MD LAB MOLECULAR DIAGNOSTICS HAIDER SNOW Final Result [facility] from Last 3 Months or Most Recently Relevant to Health Maintenance Insurance [place] [facility] [place] Address: [place] [id number] [place] [id number] Care Teams Ground Operations Supervisor Relationship Specialty Start Date End Date Parth García MD 112 [facility] 110 [place], [place] [phone] PCP - General Internal Medicine 04/16/25
--- OUTSIDE RECORDS SUMMARY | 2025-05-28 14:18 | XMS_ITS | Encounter Summary ---
Author Organization [facility] Address [address] [place] [address] Care Team Providers Care Tennis Instructor Name Role Phone Parth García MD Primary Care Provider [phone] Encounter Details Date Type Department Care Team (Late st Contact Info) Description 02/04/2025 Abstract [facility] [place] [facility] [address] [place] [address] [place] [phone] Unallocated, Noms Provider, [address] [place] [address] Social History Tobacco Use Types Packs/Day Years Used Date Smoking Tobacco: Never Assessed Sex and Gender Information Value Date Recorded Sex Assigned at Not on file Legal Sex Male 6:46 PM EDT Gender Identity Not on file Sexual Orientation Not on file documented as of this encounter Plan of Treatment Not on file documented as of this encounter Visit Diagnoses Not on filedocumented in this encounter Care Teams Tennis Instructor Relationship Specialty Start Date End Date Parth García MD [address] [place] [address] [place] [address] PCP - General Internal Medicine 04/16/25 documented as of this encounter
--- OUTSIDE RECORDS SUMMARY | 2025-05-28 14:18 | XMS_ITS | Encounter Summary ---
Author Organization [facility] Address [address] [facility] [place] [address] Care Team Providers Care Warehouse Man Name Role Phone Parth García MD Primary Care Provider [phone] Encounter Details Date Type Department Care Team (Late st Contact Info) Description 05/24/2025 Clinisync Result Encounter NOMS External Department [...] often do you attend chur ch or episcopal services? Patient declined 03/21/2025 Do you belong to any clubs o r organizations such as confucianism groups, unions, fraternal or athletic groups, or [...] Recorded Patient Health Questionnaire-2 Score 0 04/05/2025 [facility] - Occupational [...] any time in the past 12 [facility], were you homeless or living in a assisted (including now)? No 03/21/2025 Sex and Gender Information Value Date Recorded Sex Assigned at Not on file Legal Sex Male 6:46 PM EDT Gender Identity Not on file Sexual Orientation Not on file documented as of this encounter Plan of Treatment Not on file documented as of this encounter Procedures Procedure Name Priority Date/Time Associated Diagnosis Comments TSH W/REFLEX T4 Routine 05/24/2025 10:41 AM EDT [facility] CMP (CMP) ([facility]) Routine 05/24/2025 10:41 AM EDT ALL MAGNESIUM Routine 05/24/2025 10:41 AM EDT ALL CBC WITH AUTO DIFF Routine 05/24/2025 10:41 AM EDT documented in this encounter Results * TSH W/REFLEX T4 (05/24/2025 10:41 AM EDT) TSH 2.375 0.358 - 3.740 uIU/mL TBH 05/24/2025 10:4 1 AM EDT 05/24/2025 10:44 AM EDT Narrative ROSANNEISYNC - 05/24/2025 11:56 AM EDT us Generic External Data Provider LAB BLOOD ORDERAB LES Final [facility] * ALL MAGNESIUM (05/24/2025 10:41 AM EDT) MAGNESIUM 1.8 1.8 - 2.4 mg/dL TBH 05/24/2025 10:4 1 AM EDT 05/24/2025 10:44 AM EDT Narrative CLINISYNC - 05/24/2025 11:56 AM EDT us Generic External Data Provider KAYKAYNC F inal Result [facility]NC [facility] * (ABNORMAL) [facility] CMP (CMP) (FOR [facility] USE) (05/24/2025 10:41 AM EDT) SODIUM 141 136 - 145 mmol/L TBH POTASSIUM 4.1 3.5 - 5.1 mmol/L TBH CHLORIDE 107 98 - 107 mmol/L TBH CARBON DIOXIDE 25.7 21.0 - 32.0 mmol/L TBH ANION GAP 12.4 TBH GLUCOSE 95 74 - 106 mg/dL TBH BLOOD UREA NITROGEN 16.0 7.0 - 18.0 mg/dL TBH CREATININE 1.11 0.70 - 1.30 mg/dL TBH TBH EGFR-AF ERITREAN >60 >=60 mL/min/1. 73m 2 TBH TBH EGFR-NON AF ERITREAN >60 >=60 mL/min/1. 73m 2 TBH BUN [...] AM EDT us Generic External Data Provider RAD Mac inal Result RAD [facility] * (ABNORMAL) ALL CBC WITH AUTO DIFF (05/24/2025 10:41 AM EDT) [facility] TB WBC 5.4 4.0 - 11.0 10 3/uL [...] 0.01 0.00 - 0.03 10 3/uL TBH 05/24/2025 10:4 1 AM EDT 05/24/2025 10:44 AM EDT Narrative CLINISYNC - 05/24/2025 11:02 AM EDT us Generic External Data Provider CLINISYNITIN F inal Result CLINIS[facility]NC [facility] documented in this encounter Visit Diagnoses Not on filedocumented in this encounter Care Teams Warehouse Man Relationship Specialty Start Date End Date Parth García MD [address] [facility] [address] [place] [address] PCP - General Internal Medicine 04/16/25 documented as of this encounter
--- OUTSIDE RECORDS SUMMARY | 2025-05-28 14:18 | XMS_ITS | Encounter Summary ---
Author Organization [facility] Address [address] [facility] [place] [address] Care Team Providers Care Assistant County Attorney Name Role Phone Parth García MD Primary Care Provider [phone] Encounter Details Date Type Department Care Team (Late st Contact Info) Description 02/13/2024 Abstract [facility] [place] [facility] [address] [place] [address] [place] [id number] Parth García MD [address] [place] [address] [place] [address] Social History Tobacco Use Types Packs/Day Years [...] on filedocumented in this encounter Care Teams Assistant County Attorney Relationship Specialty Start Date End Date Parth García MD [address] [place] [address] [place] [address] PCP - General Internal Medicine 04/16/25 documented as of this encounter
--- OUTSIDE RECORDS SUMMARY | 2025-05-28 14:18 | XMS_ITS | Clinical Summary ---
Author Organization [facility] Address [address] [place], [place] [address] Care Team Providers Care Experimental Mechanic Name Role Phone Go Paulson MD Unavailable [phone] Ricky MANNING MD, Parth Cummins Primary Care Provider [phone] Natasha Grimes RN Unavailable [phone] Darwin Quinteros MD Unavailable [phone] Kimberlee Rosenberg Unavailable Unavailable Allergies No known active allergies Medications alfuzosin SR (UROXATRAL) 10 mg 24 hr tablet Take 10 mg by mouth once daily. Active Active Problems Problem Noted Date Diagnosed Date Bladder cancer 10/19/2024 Family History Medical History Relation Comments Breast [...] is lower risk 7 10/19/2024 Data from: https://www.neighborhoodatlas.medicine.[facility].edu/. Last address used for calculation [address] 10/19/2024 Sex and Gender Information Value [...] Description 08/02/2025 12:45 PM EST Office Visit [facility] [address] [place] [address] 6 month follow up with chemotx Maintenence BCG x3 08/02/2025 1:00 PM EST Visit (SP) Office Hematology/Oncology [address] [place] [address] Darwin Quinteros MD [address] [place] [address] 6 month follow up with chemotx Maintenence BCG x3 08/02/2025 1:30 PM EST Infusion Center Hematology/Oncology [address] [place] [address] 6 month follow up with chemotx Maintenence BCG x3 08/09/2025 1:00 PM EST Infusion Center Hematology/Oncology [address] [place] [address] 6 month follow up with chemotx Maintenence BCG x3 08/16/2025 1:00 PM EST Infusion Center Hematology/Oncology [address] [place] [address] 6 month follow up with chemotx Maintenence [...] Procedure Name Priority Date/Time Associated Diagnosis Comments COMPREHENSIVE METABOLIC PANEL Routine 02/15/2025 12:43 PM EDT Malignant neoplasm of urinary bladder, unspecified site (HCC) Dysuria from Last 3 Months or Most Recently Relevant to Health Maintenance Results * (ABNORMAL) COMPREHENSIVE METABOLIC PANEL (02/15/2025 12:43 PM EDT) Protein, Total 6.6 6.3 - 8.0 g/dL 02/15/2025 1:35 PM EDT [facility] Albumin 4.1 3.9 - 4.9 g/dL 02/15/2025 1:35 PM EDT [facility] Calcium, Total 9.5 8.5 - 10.2 mg/dL 02/15/2025 1:35 PM EDT [facility] Bilirubin, Total 0.5 0.2 - 1.3 mg/dL 02/15/2025 1:35 PM EDT [facility] Alkaline Phosphatase 81 38 - 113 U/L 02/15/2025 1:35 PM EDT [facility] AST 11(L) 14 - 40 U/L 02/15/2025 1:35 PM EDT [facility] ALT 8(L) 10 - 54 U/L 02/15/2025 1:35 PM [facility] Glucose 101(H) 74 - 99 mg/dL 02/15/2025 1:35 PM [facility] Comment: The [place] Diabetes Association (ADA) provides guidance for cutoff [...] Standards of Medical Care in Diabetes 2016, [place] [employer] Association. Diabetes Care. 2016.39(Suppl 1). BUN 14 9 - 24 mg/dL 02/15/2025 1:35 PM [facility] Creatinine 0.99 0.73 - 1.22 mg/dL 02/15/2025 1:35 PM [facility] Sodium 143 136 - 144 mmol/L 02/15/2025 1:35 PM [facility] Potassium 4.2 3.7 - 5.1 mmol/L 02/15/2025 1:35 PM [facility] Chloride 104 98 - 107 mmol/L 02/15/2025 1:35 PM [facility] CO2 26 22 - 30 mmol/L 02/15/2025 1:35 PM [facility] Anion Gap 13 8 - 15 mmol/L 02/15/2025 1:35 PM [facility] Estimated Glomerular Filtration Rate 88 >=60 mL/min/1. 73m 02/15/2025 1:35 PM [facility] Comment:Estimated Glomerular Filtration Rate [...] 02/15/2025 12:43 PM EDT us Unique Roque VAT HOUSE LABORER.TRAY CASTING MACHINE OPERATOR LABORATORY Final Re sult [facility] [address] [place] [address] from Last 3 Months or Most Recently Relevant to Health Maintenance Insurance [employer] Care Teams Experimental Mechanic Relationship Specialty Start Date End Date Parth García II, MD [address] [facility] [address] [place], [place] [address] PCP - General Internal Medicine 10/26/24 Go Paulson MD Urology 10/12/24 Natasha Grimes RN [address] [place] [address] [place] [address] Specialty College Sports Coach Hematology/Oncology 10/31/24 Darwin Quinteros MD [address] [place] [address] [place] [address] Physician Hematology/Oncology 10/31/24 Kimberlee Rosenberg LSW Furniture Decals Inspector 11/06/24
--- OUTSIDE RECORDS SUMMARY | 2025-05-28 14:18 | XMS_ITS | Encounter Summary ---
Author Organization [facility] Address [address] [place] [address] Care Team Providers Care Lab Systems Analyst Name Role Phone Parth García MD Primary Care Provider [phone] Encounter Details Date Type Department Care Team [...] EDT Narrative 02/17/2024 11:16 AM EDT The [address] [address] XRay Report Signed Patient: SEE ROSENBERG MR#: [id number] : 1965 Acct:[id number] Age/Sex: 58 / M ADM Date: 02/17/24 Loc: PST Attending Dr: Jarad Valdivia M.D. Ordering Physician: Jarad Valdivia M.D. Date of Service: 02/17/24 Procedure(s): XR chest 2V Accession Number(s): [id number] cc: PARTH GARCÍA ; Jarad Valdivia M.D. The [place] [id number] Patient Name: SEE ROSENBERG MRN: [id number] date: 1965 Sex: M Assigned Patient Location: [facility] Current Patient Location: [facility] Accession/Order Number: [id number] Exam Date: 02/17/2024 09:28 Report Date: 02/17/2024 [...] Signed By: 02/17/24 1116 DD/ 1114 TD/TT: Chef: Procedure Note Radiology, Radiologist, MD - 02/17/2024 [place] [address] XRay Report Signed Patient: SEE ROSENBERG SMR#: [id number] : 1965Acct:[id number] Age/Sex: 58 / MADM Date: 02/17/24 Loc: [facility] Attending Dr: Jarad Valdivia M.D. Ordering Physician: Jarad Valdivia M.D. Date of Service: 02/17/24 Procedure(s): XR chest 2V Accession Number(s): [id number] cc: PARTH GARCÍA ; Jarad Valdivia M.D. [address] [address] Patient Name: SEE ROSENBERG MRN: [facility]:[id number] date: 1965 Sex: M Assigned Patient Location: [facility] Current Patient Location: [facility] Accession/Order Number: [id number] Exam Date: 02/17/2024 09:28 Report Date: 02/17/2024 [...] M.D. Signed By:02/17/24 1116 DD/ 1114 TD/TT: Chef: [facility] External Data Provider [facility] Final Result [...] External Data Provider [facility] F inal Result [facility] documented in this encounter Visit Diagnoses Not on filedocumented in this encounter Care Teams Lab Systems Analyst Relationship Specialty Start Date End Date Parth García MD [address] [facility] [address] [place] [address] PCP - General Internal Medicine 04/16/25 documented as of this encounter
--- OUTSIDE RECORDS SUMMARY | 2025-05-28 14:18 | XMS_ITS | Encounter Summary ---
Author Organization [facility] Address [address] [facility] [place] [address] Care Team Providers Care Laundry Aide Name Role Phone Parth García MD Primary Care Provider [phone] Encounter Details Date Type Department Care Team (Late st Contact Info) Description 05/28/2025 Abstract [facility] [address] [place] [address] [place] [id number] Parth García MD [address] [place] [address] [place] [address] Social History Tobacco Use Types Packs/Day Years [...] often do you attend chur ch or holiness services? Patient declined 03/21/2025 Do you belong to any clubs o r organizations such as rastafarian groups, unions, fraternal or athletic groups, or [...] Recorded Patient Health Questionnaire-2 Score 0 04/05/2025 [facility] Questionnaire Answer Date [...] any time in the past 12 m [facility], were you homeless or living in a residential (including now)? No 03/21/2025 Sex and Gender Information Value Date Recorded Sex Assigned at Not on file Legal Sex Male 6:46 PM EDT Gender Identity Not on file Sexual Orientation Not on file documented as of this encounter Plan of Treatment Not on file documented as of this encounter Visit Diagnoses Not on filedocumented in this encounter Care Teams Laundry Aide Relationship Specialty Start Date End Date Parth García MD [address] [facility] 110 [place] [address] PCP - General Internal Medicine 04/16/25 documented as of this encounter
--- OUTSIDE RECORDS SUMMARY | 2025-05-28 14:18 | XMS_ITS ---
Author Organization [facility] Address [facility] [place] [id number] Care Team Providers Care Architect Internship Name Role Phone Go Paulson MD Unavailable Ricky MANNING MD, Parth Cummins Primary Care Provider [phone] Natasha Grimes RN Unavailable [phone] Darwin Quinteros MD Unavailable [phone] Kimberlee Rosenberg Unavailable Unavailable Active Problems Problem [...]
--- OUTSIDE RECORDS SUMMARY | 2025-05-28 14:18 | XMS_ITS | Encounter Summary ---
Author Organization [facility] Address [address] [place] [address] Care Team Providers Care Melter Clerk Name Role Phone Parth García MD Primary Care Provider [phone] Encounter Details Date Type Department Care Team (Late st Contact Info) Description 12/31/2024 Abstract [facility] [facility] [address] [place] [address] [place] [phone] Unallocated, Noms Provider, [address] [place] [address] Social History Tobacco Use Types Packs/Day Years [...] on filedocumented in this encounter Care Teams Melter Clerk Relationship Specialty Start Date End Date Parth García MD [address] [place] [address] [place] [address] PCP - General Internal Medicine 04/16/25 documented as of this encounter
--- OUTSIDE RECORDS SUMMARY | 2025-05-28 14:18 | XMS_ITS | Encounter Summary ---
Author Organization [facility] Address [address] [place] [address] Care Team Providers Care Production Control Analyst Name Role Phone Parth García MD Primary Care Provider [phone] Reason for Visit * Reason Onset Date Comments Optimized for Surgery 05/17/2025 Encounter Details Date Type Department Care Team ([facility] st Contact Info) Description 05/17/2025 Telephone [facility] 1 [place] [address] Karma Sol MA Optimized for Surgery Social History Tobacco Use Types Packs/Day Years [...] Recorded Patient Health Questionnaire-2 Score 0 04/05/2025 [facility] - Occupational Stress Questionnaire Answer Date [...] any time in the past 12 m [facility], were you homeless or living in a mcc (including now)? No 03/21/2025 Sex and Gender Information Value Date Recorded Sex Assigned at Not on file Legal Sex Male 6:46 PM EDT Gender Identity Not on file Sexual Orientation Not on file documented as of this encounter Miscellaneous Notes * Telephone Encounter - Corin Pennington - 05/28/2025 10:41 AM EDT Patient called and left vm returning call to schedule surgery. [phone] * Telephone Encounter - Karma Sol MA - 05/28/2025 9:08 AM EDT Called patient and left voicemail to get him scheduled for surgery. * Telephone Encounter - CHARLES Page - 05/20/2025 1:07 PM EDT Acknowledged. * Telephone Encounter - Karma Sol MA - 05/20/2025 9:16 AM EDT Patient did not express health concerns to myself, just Dr. Pimentel stating that he would like to know if patient is optimized for surgery prior to scheduling. I will get him scheduled for surgery. * Telephone Encounter - CHARLES Page - 05/20/2025 8:58 AM EDT If pt has some health concerns, he is always welcome to come in for an appointment to discuss. If you are referring to his chronic health conditions, I do not have any immediate concerns regarding him proceeding with a knee arthroscopy. * Telephone Encounter - Karma Sol MA - 05/17/2025 10:33 AM EDT Good morning Dr. García. Dr. White would like to do a knee arthroscopy on See and would like to make sure that he is optimized for surgery prior to scheduling him, as he has some other health concerns. Is this something that you would be okay with the patient in proceeding forward with? Thankyou! documented in this encounter Plan of Treatment Not on file documented as of this encounter Visit Diagnoses Not on filedocumented in this encounter Care Teams Production Control Analyst Relationship Specialty Start Date End Date Parth García MD [address] [place] [address] PCP - General Internal Medicine 04/16/25 documented as of this encounter
--- OUTSIDE RECORDS SUMMARY | 2025-05-28 14:18 | XMS_ITS | Encounter Summary ---
Author Organization [facility] Address [address] [facility] [place] [address] Care Team Providers Care Industrial Hygenist Name Role Phone Parth García MD Primary Care Provider [phone] Encounter Details Date Type Department Care Team (Late st Contact Info) Description 05/10/2025 Results Follow-Up [facility] [address] [facility] [address] Kiran Sanchez PA [address] [place] [address] MR KNEE RT WO CON Social History Tobacco Use Types Packs/Day Years [...] often do you attend chur ch or sikhism services? Patient declined 03/21/2025 Do you belong to any clubs o r organizations such as oriental orthodox groups, unions, fraternal or athletic groups, or [...] Recorded Patient Health Questionnaire-2 Score 0 04/05/2025 [facility] - Occupational Stress Questionnaire Answer Date [...] any time in the past 12 m [facility], were you homeless or living in a snf (including now)? No 03/21/2025 Sex and Gender Information Value Date Recorded Sex Assigned at Not on file Legal Sex Male 6:46 PM EDT Gender Identity Not on file Sexual Orientation Not on file documented as of this encounter Plan of Treatment Not on file documented as of this encounter Visit Diagnoses Not on filedocumented in this encounter Care Teams Industrial Hygenist Relationship Specialty Start Date End Date Parth García MD 112 [facility] 110 [place] [address] PCP - General Internal Medicine 04/16/25 documented as of this encounter
--- OUTSIDE RECORDS SUMMARY | 2025-05-28 14:18 | XMS_ITS | Encounter Summary ---
Author Organization [facility] Address [address] [facility] [place] [address] Care Team Providers Care Tire Fabricator Name Role Phone Parth García MD Primary Care Provider [phone] Encounter Details Date Type Department Care Team (Late st Contact Info) Description 03/28/2025 Abstract [facility] [facility] [address] [place] [address] [place] [phone] Parth García MD [address] [place] [address] [place] [address] Social History Tobacco Use Types Packs/Day Years [...] often do you attend chur ch or zoroastrianism services? Patient declined 03/21/2025 Do you belong to any clubs o r organizations such as congregation groups, unions, fraternal or athletic groups, or [...] 0 03/22/2025 [facility]ational Stress Questionnaire Answer Date [...] any time in the past 12 m [facility], were you homeless or living [...] on filedocumented in this encounter Care Teams Tire Fabricator Relationship Specialty Start Date End Date Parth García MD 112 [facility] 110 [place] [address] PCP - General Internal Medicine 04/16/25 documented as of this encounter
--- OUTSIDE RECORDS SUMMARY | 2025-05-28 14:18 | XMS_ITS | Clinical Summary ---
Author Organization [facility] Address [address] [facility] [place] [address] Care Team Providers Care As400 Consultant Name Role Phone Parth García MD Primary Care Provider [phone] Allergies No known active allergies Medications No [...] 6:22 AM 05/16/2019 10:02 AM Care Teams As400 Consultant Relationship Specialty Start Date End Date Parth García MD PCP - General Internal Medicine 04/28/19
--- OUTSIDE RECORDS SUMMARY | 2025-05-28 14:18 | XMS_ITS | Encounter Summary ---
Author Organization [facility] Healthcare Address [address] [facility] [place] [address] Care Team Providers Care Court Administrator Name Role Phone Parth García MD Primary Care Provider [phone] Encounter Details Date Type Department Care Team (Latest Contact Info) Description 05/17/2025 Travel Social History Tobacco Use Types Packs/Day [...] How often do you attend chur or voodoo services? Patient declined 03/21/2025 Do you belong to any clubs o r organizations such as hoahaoism groups, unions, fraternal or athletic groups, or [...] Recorded Patient Health Questionnaire-2 Score 0 04/05/2025 [facility] Questionnaire Answer Date [...] any time in the past 12 m [facility], were you homeless or living in a mcfp (including now)? No 03/21/2025 Sex and Gender Information Value Date Recorded Sex Assigned at Not on file Legal Sex Male 6:46 PM EDT Gender Identity Not on file Sexual Orientation Not on file documented as of this encounter Plan of Treatment Not on file documented as of this encounter Visit Diagnoses Not on filedocumented in this encounter Care Teams Court Administrator Relationship Specialty Start Date End Date Parth García MD 112 [facility] 110 [place] [address] PCP - General Internal Medicine 04/16/25 documented as of this encounter
--- OUTSIDE RECORDS SUMMARY | 2025-05-28 14:18 | XMS_ITS | Encounter Summary ---
Author Organization [facility] Address [address] [place] [address] Care Team Providers Care Trial Lawyer Name Role Phone Parth García MD Primary Care Provider [phone] Encounter Details Date Type Department Care Team (Late st Contact Info) Description 03/05/2025 Abstract [facility] [facility] [address] [place] [address] [place] [phone] Unallocated, Noms Provider, [address] [place] [address] Social History Tobacco Use Types Packs/Day Years [...] on filedocumented in this encounter Care Teams Trial Lawyer Relationship Specialty Start Date End Date Parth García MD [address] [place] [address] [place] [address] PCP - General Internal Medicine 04/16/25 documented as of this encounter
--- OUTSIDE RECORDS SUMMARY | 2025-05-28 14:18 | XMS_ITS | Encounter Summary ---
Author Organization [facility] Address [address] [place] [address] Care Team Providers Care Gauge Machine Operator Name Role Phone Parth García MD Primary Care Provider [phone] Encounter Details Date Type Department Care Team (Late st Contact Info) Description 01/14/2025 Abstract [facility] [place] [facility] [address] [place] [address] [place] [phone] Unallocated, Noms Provider, [address] [place] [address] Social History Tobacco Use Types Packs/Day Years [...] on filedocumented in this encounter Care Teams Gauge Machine Operator Relationship Specialty Start Date End Date Parth García MD [address] [place] [address] [place] [address] PCP - General Internal Medicine 04/16/25 documented as of this encounter
--- OUTSIDE RECORDS SUMMARY | 2025-05-28 14:18 | XMS_ITS | Encounter Summary ---
Author Organization [facility] Address [address] [facility] [place] [address] Care Team Providers Care Cutter Out Name Role Phone Parth García MD Primary Care Provider [phone] Encounter Details Date Type Department Care Team (Late st Contact Info) Description 05/16/2023 Abstract [facility] [place] [facility] [address] [place] [address] [place] [address] Parth García MD [address] [place] [address] [place] [address] Social History Tobacco Use Types Packs/Day Years [...] on filedocumented in this encounter Care Teams Cutter Out Relationship Specialty Start Date End Date Parth García MD [address] [place] [address] [place] [address] PCP - General Internal Medicine 04/16/25 documented as of this encounter
--- OUTSIDE RECORDS SUMMARY | 2025-05-28 14:18 | XMS_ITS | Encounter Summary ---
Author Organization [facility] Address [address] [place] [address] Care Team Providers Care Director Of Web Marketing Name Role Phone Parth García MD Primary Care Provider [phone] Encounter Details Date Type Department Care Team (Late st Contact Info) Description 05/17/2025 Bamboo flowsheet [facility] [address] [place] [address] Jr. Santiago White, DO [address] [place] [address] [place] [address] Social History Tobacco Use Types Packs/Day Years [...] often do you attend chur ch or confucianist services? Patient declined 03/21/2025 Do you belong to any clubs o r organizations such as alevism groups, unions, fraternal or athletic groups, or [...] Recorded Patient Health Questionnaire-2 Score 0 04/05/2025 [facility] Occupat ional [facility] - Occupational Stress Questionnaire Answer Date [...] on filedocumented in this encounter Care Teams Director Of Web Marketing Relationship Specialty Start Date End Date Parth García MD 112 [facility] 110 [place] [address] PCP - General Internal Medicine 04/16/25 documented as of this encounter
--- OUTSIDE RECORDS SUMMARY | 2025-05-28 14:18 | XMS_ITS | Encounter Summary ---
Author Organization [facility] Address [address] [facility] [place] [address] Care Team Providers Care Light Out Examiner Name Role Phone Parth García MD Primary Care Provider [phone] Encounter Details Date Type Department Care Team (Late st Contact Info) Description 02/16/2023 Orders Only [facility] [place] [facility] [address] [place] [address] [place] [phone] Parth García MD [address] [place] [address] [place] [address] Social History Tobacco Use Types Packs/Day Years [...] on filedocumented in this encounter Care Teams Light Out Examiner Relationship Specialty Start Date End Date Parth García MD [address] [place] [address] [place] [address] PCP - General Internal Medicine 04/16/25 documented as of this encounter
--- OUTSIDE RECORDS SUMMARY | 2025-05-28 14:18 | XMS_ITS | Encounter Summary ---
Author Organization [facility] Address [address] [facility] [place] [address] Care Team Providers Care Cardiac Nurse Specialist Name Role Phone Parth García MD Primary Care Provider [phone] Encounter Details Date Type Department Care Team [...] EDT Narrative 02/17/2024 5:50 PM EDT The [address] [address] Electrocardiograph Report Signed Patient: SEE ROSENBERG MR#: [id number] : 1965 Acct:[id number] Age/Sex: 58 / M ADM Date: 02/17/24 Loc: PST Attending Dr: Go Paulson M.D. Ordering Physician: Go Paulson M.D. Date of Service: 02/17/24 Procedure(s): ECG 12 lead Accession Number(s): [id number] cc: The [facility] Test Date: 2024-02-17 Pat Name: SEE ROSENBERG Department: Room: - Gender: Male Sheep Farm Manager: : 1965 Requested By: PARTH GARCÍA Order Number: [id number] Reading MD: YURIY CAMPOS Measurements Intervals [facility] Rate: 84 P: 84 SC: 131 QRS: 80 QRSD: 88 T: 70 QT: 348 QTc: 413 Interpretive Statements SINUS RHYTHM Compared to ECG 02/11/2023 09:07:22 No significant changes Electronically Signed On 02-17-2024 17:50:19 EDT by YURIY CAMPOS Dictated By: Yuriy Campos D.O. Signed By: 02/17/24 1750 DD/ 0 TD/TT: Acetylene Plant Operator: Procedure Note Radiology, Radiologist, MD - 02/17/2024 [place] [address] Electrocardiograph Report Signed Patient: SEE ROSENBERG SMR#: [id number] : 1965Acct:[id number] Age/Sex: 58 / MADM Date: 02/17/24 Loc: [facility] Attending Dr: Go Paulson M.D. Ordering Physician: Go Paulson M.D. Date of Service: 02/17/24 Procedure(s): ECG 12 lead Accession Number(s): [id number] cc: The [facility] Test Date: 2024-02-17 Pat Name: SEE ROSENBERG Department: Room: - Gender: Male Sheep Farm Manager: : 1965 Requested By: PARTH GARCÍA Order Number: [id number] Reading MD: YURIY CAMPOS Measurements Intervals [facility] Rate: 84 P: 84 SC: 131 QRS: 80 QRSD: 88 T: 70 QT: 348 QTc: 413 Interpretive Statements SINUS RHYTHM Compared to ECG 02/11/2023 09:07:22 No significant changes Electronically Signed On 02-17-2024 17:50:19 EDT by YURIY CAMPOS Dictated By: Yuriy Campos D.O. Signed By:02/17/24 1750 DD/ 0 TD/TT: Acetylene Plant Operator: us Generic External Data Provider [facility] Final Result documented in this encounter Visit Diagnoses Not on filedocumented in this encounter Care Teams Cardiac Nurse Specialist Relationship Specialty Start Date End Date Parth García MD 112 [facility] 110 [place] [address] PCP - General Internal Medicine 04/16/25 documented as of this encounter
--- OUTSIDE RECORDS SUMMARY | 2025-05-28 14:19 | XMS_ITS | Clinical Summary ---
Author Organization [employer] Address [facility] [place] [address] [place] [address] Care Team Providers Care Casino Runner Name Role Phone Parth García MD Primary Care Provider [phone] Social History Tobacco Use Types Packs/Day Years [...] Not on file Insurance AET[employer] Care Teams Casino Runner Relationship Specialty Start Date End Date Parth García MD [address] [phone] PCP - General Internal Medicine 06/03/17
--- OUTSIDE RECORDS SUMMARY | 2025-05-28 14:19 | XMS_ITS | Encounter Summary ---
Author Organization [facility] Address [address] [place] [address] Care Team Providers Care Automation Technologist Name Role Phone Parth García MD Primary Care Provider [phone] Encounter Details Date Type Department Care Team (Late st Contact Info) Description 04/08/2025 [facility] [address] [place] [phone] Unallocated, Jayy Provider, [address] [place] [address] Social History Tobacco Use Types Packs/Day Years [...] often do you attend chur ch or congregation services? Patient declined 03/21/2025 Do you belong to any clubs o r organizations such as confucianist groups, unions, fraternal or athletic groups, or [...] Recorded Patient Health Questionnaire-2 Score 0 04/05/2025 [facility] - Occupational Stress Questionnaire [...] time in the past 12 m [facility], were you homeless or living in a long-term (including now)? No 03/21/2025 Sex and Gender Information Value Date Recorded Sex Assigned at Not on file Legal Sex Male 6:46 PM EDT Gender Identity Not on file Sexual Orientation Not on file documented as of this encounter Plan of Treatment Not on file documented as of this encounter Visit Diagnoses Not on filedocumented in this encounter Care Teams Automation Technologist Relationship Specialty Start Date End Date Parth García MD 112 [facility] [address] [place] [address] PCP - General Internal Medicine 04/16/25 documented as of this encounter
[2025-05-31 09:50] VITALS: BP 133/82; PULSE 97; TEMP 36.6; O2SAT 96
[2025-05-31 09:52] LABS: Hematocrit 43.3 % (42.0-54.0); Hemoglobin 15.0 g/dL (14.0-18.0); Immature Granulocytes Abs Auto 0.01 10^3/uL (0.00-0.03); Immature Granulocytes Pct Auto 0.2 % (0.0-0.5); Lymphocytes Absolute Auto 1.0 10^3/uL (1.2-3.8); Mean Corpuscular HGB Conc 34.6 g/dL (29.9-35.2); Mean Corpuscular Hemoglobin 30.0 pg (25.9-34.0); Mean Corpuscular Volume 86.6 fL (80.0-94.0); Platelet Count 187 10^3/uL (150-450); Red Blood Count 5.00 10^6/uL (4.70-6.10); White Blood Count 4.9 10^3/uL (4.0-11.0)
[2025-05-31 10:13] LABS: Alanine Aminotransferase 23 U/L (16-63); Albumin Globulin Ratio 1.0; Albumin Level 3.6 g/dL (3.4-5.0); Alkaline Phosphatase 74 U/L (46-116); Anion Gap 12.6; Aspartate Amino Transferase 11 U/L (15-37); Blood Urea Nitrogen 14.0 mg/dL (7.0-18.0); Calcium 8.7 mg/dL (8.5-10.1); Carbon Dioxide 26.4 mmol/L (21.0-32.0); Chloride 107 mmol/L (98-107); Estimated GFR (African America >60 (>=60 mL/min/1.73m^2); Estimated GFR (Non-African Ame >60 (>=60 mL/min/1.73m^2); Globulin 3.7 g/dL; Glucose 93 mg/dL (74-106); Magnesium 1.9 mg/dL (1.8-2.4); Potassium 4.0 mmol/L (3.5-5.1); Sodium 142 mmol/L (136-145); TSH W/ REFLEX FT4 2.221 uIU/mL (0.358-3.740); Total Protein 7.3 g/dL (6.4-8.2)
--- NOTE | 2025-05-31 10:18 | PC.NURSE ---
0940: Pt. to [facility] amb. for infusion. Seated in recliner. VSS. IV initiated without difficulty. Blood drawn off IV for ordered labs. Pt. tolerated without c/o. Declines snack or beverage. Denies needs.
[2025-05-31] MEDS: 0.9 % SODIUM CHLORIDE 250 ML 750 ML IV (10:30)
[2025-06-25 09:00] VITALS: BP 108/72; PULSE 102; TEMP 36; O2SAT 97
[2025-06-25 09:11] LABS: Hematocrit 43.3 % (42.0-54.0); Hemoglobin 14.9 g/dL (14.0-18.0); Immature Granulocytes Abs Auto 0.01 10^3/uL (0.00-0.03); Immature Granulocytes Pct Auto 0.2 % (0.0-0.5); Lymphocytes Absolute Auto 1.1 10^3/uL (1.2-3.8); Mean Corpuscular HGB Conc 34.4 g/dL (29.9-35.2); Mean Corpuscular Hemoglobin 30.4 pg (25.9-34.0); Mean Corpuscular Volume 88.4 fL (80.0-94.0); Platelet Count 172 10^3/uL (150-450); Red Blood Count 4.90 10^6/uL (4.70-6.10); White Blood Count 4.8 10^3/uL (4.0-11.0)
[2025-06-25 09:27] LABS: Alanine Aminotransferase 20 U/L (16-63); Albumin Globulin Ratio 0.9; Albumin Level 3.3 g/dL (3.4-5.0); Alkaline Phosphatase 68 U/L (46-116); Anion Gap 10.5; Aspartate Amino Transferase 13 U/L (15-37); Blood Urea Nitrogen 13.0 mg/dL (7.0-18.0); Calcium 8.6 mg/dL (8.5-10.1); Carbon Dioxide 28.2 mmol/L (21.0-32.0); Chloride 105 mmol/L (98-107); Estimated GFR (African America >60 (>=60 mL/min/1.73m^2); Estimated GFR (Non-African Ame >60 (>=60 mL/min/1.73m^2); Globulin 3.7 g/dL; Glucose 130 mg/dL (74-106); Potassium 3.7 mmol/L (3.5-5.1); Sodium 140 mmol/L (136-145); Total Protein 7.0 g/dL (6.4-8.2)
[2025-06-25 09:37] LABS: Magnesium 2.1 mg/dL (1.8-2.4); TSH W/ REFLEX FT4 2.758 uIU/mL (0.358-3.740)
[2025-06-25] MEDS: 0.9 % SODIUM CHLORIDE 250 ML 10 ML IV (10:29)
[2025-06-25 11:06] VITALS: BP 110/64; PULSE 92; TEMP 36.6; O2SAT 98
--- NOTE | 2025-06-25 12:48 | PC.NURSE ---
1029: IV Keytruda initiated at this time. Pt. denies needs or c/o. Fluids and snack offered, pt. declines. 1034: Dr. Andrade to chairside for MD visit.
== END 2025-06-25 23:59 | disposition home or self-care (01) ==
LOC: HEMC 08:45
PROVIDERS: PCP Internal Medicine; Visit Provider Internal Medicine Hematology & Oncology
DX: Z51.12 Encounter for antineoplastic immunotherapy (principal); C67.8 Malignant neoplasm of overlapping sites of bladder; Z15.09 Genetic susceptibility to other malignant neoplasm; Z84.81 Family history of carrier of genetic disease; Z80.0 Family history of malignant neoplasm of digestive organs; D72.819 Decreased white blood cell count, unspecified; Z90.49 Acquired absence of other specified parts of digestive tract; Z87.891 Personal history of nicotine dependence
CPT/HCPCS: 36415; 80053; 83735; 84443; 85025; 96413; G0463; J9271

== ENCOUNTER 2025-07-16 09:09 | Outpatient (RCR) | payer OTHER, SELFPAY ==
[2025-07-16 09:10] VITALS: BP 129/85; PULSE 114; TEMP 36.6; O2SAT 97
[2025-07-16 09:30] LABS: Hematocrit 44.4 % (42.0-54.0); Hemoglobin 14.9 g/dL (14.0-18.0); Immature Granulocytes Abs Auto 0.01 10^3/uL (0.00-0.03); Immature Granulocytes Pct Auto 0.2 % (0.0-0.5); Lymphocytes Absolute Auto 1.2 10^3/uL (1.2-3.8); Mean Corpuscular HGB Conc 33.6 g/dL (29.9-35.2); Mean Corpuscular Hemoglobin 29.9 pg (25.9-34.0); Mean Corpuscular Volume 89.2 fL (80.0-94.0); Platelet Count 193 10^3/uL (150-450); Red Blood Count 4.98 10^6/uL (4.70-6.10); White Blood Count 5.9 10^3/uL (4.0-11.0)
[2025-07-16 09:49] LABS: Alanine Aminotransferase 19 U/L (16-63); Albumin Globulin Ratio 0.9; Albumin Level 3.6 g/dL (3.4-5.0); Alkaline Phosphatase 77 U/L (46-116); Anion Gap 14.5; Aspartate Amino Transferase 14 U/L (15-37); Blood Urea Nitrogen 14.0 mg/dL (7.0-18.0); Calcium 8.8 mg/dL (8.5-10.1); Carbon Dioxide 26.2 mmol/L (21.0-32.0); Chloride 105 mmol/L (98-107); Estimated GFR (African America >60 (>=60 mL/min/1.73m^2); Estimated GFR (Non-African Ame >60 (>=60 mL/min/1.73m^2); Globulin 3.8 g/dL; Glucose 125 mg/dL (74-106); Potassium 3.7 mmol/L (3.5-5.1); Sodium 142 mmol/L (136-145); Total Protein 7.4 g/dL (6.4-8.2)
[2025-07-16 09:57] LABS: Magnesium 2.1 mg/dL (1.8-2.4); TSH W/ REFLEX FT4 1.901 uIU/mL (0.358-3.740)
[2025-07-16] MEDS: 0.9 % SODIUM CHLORIDE 250 ML 10 ML IV (10:57)
[2025-07-16 11:38] VITALS: BP 121/71; PULSE 73; TEMP 36.1; O2SAT 97
--- NOTE | 2025-07-16 12:57 | PC.NURSE ---
1056: IV Blanca initiated at this time. Pt. cont. to deny needs or c/o. Dr. Andrade to chairside.
== END 2025-07-26 23:59 | disposition home or self-care (01) ==
LOC: HEMC 09:09
PROVIDERS: PCP Internal Medicine; Visit Provider Internal Medicine Hematology & Oncology
DX: Z51.12 Encounter for antineoplastic immunotherapy (principal); C67.8 Malignant neoplasm of overlapping sites of bladder; D72.819 Decreased white blood cell count, unspecified; Z84.81 Family history of carrier of genetic disease; Z80.0 Family history of malignant neoplasm of digestive organs; Z15.09 Genetic susceptibility to other malignant neoplasm
CPT/HCPCS: 36415; 80053; 83735; 84443; 85025; 96413; G0463; J9271

== ENCOUNTER 2025-08-06 11:21 | Outpatient (RCR) | payer BC, SELFPAY ==
[2025-08-06 11:24] VITALS: BP 132/81; PULSE 80; TEMP 36.6; O2SAT 98
[2025-08-06 11:44] LABS: Hematocrit 44.9 % (42.0-54.0); Hemoglobin 14.9 g/dL (14.0-18.0); Immature Granulocytes Abs Auto 0.00 10^3/uL (0.00-0.03); Immature Granulocytes Pct Auto 0.0 % (0.0-0.5); Lymphocytes Absolute Auto 1.0 10^3/uL (1.2-3.8); Mean Corpuscular HGB Conc 33.2 g/dL (29.9-35.2); Mean Corpuscular Hemoglobin 29.7 pg (25.9-34.0); Mean Corpuscular Volume 89.6 fL (80.0-94.0); Platelet Count 182 10^3/uL (150-450); Red Blood Count 5.01 10^6/uL (4.70-6.10); White Blood Count 4.8 10^3/uL (4.0-11.0)
[2025-08-06 11:49] LABS: Alanine Aminotransferase 23 U/L (16-63); Albumin Globulin Ratio 1.1; Albumin Level 3.6 g/dL (3.4-5.0); Alkaline Phosphatase 75 U/L (46-116); Anion Gap 8.4; Aspartate Amino Transferase 15 U/L (15-37); Blood Urea Nitrogen 9.0 mg/dL (7.0-18.0); Calcium 8.5 mg/dL (8.5-10.1); Carbon Dioxide 29.9 mmol/L (21.0-32.0); Chloride 106 mmol/L (98-107); Estimated GFR (African America >60 (>=60 mL/min/1.73m^2); Estimated GFR (Non-African Ame >60 (>=60 mL/min/1.73m^2); Globulin 3.4 g/dL; Glucose 105 mg/dL (74-106); Potassium 3.3 mmol/L (3.5-5.1); Sodium 141 mmol/L (136-145); Total Protein 7.0 g/dL (6.4-8.2)
[2025-08-06 11:57] LABS: Magnesium 2.1 mg/dL (1.8-2.4); TSH W/ REFLEX FT4 1.681 uIU/mL (0.358-3.740)
== END 2025-08-25 23:59 | disposition home or self-care (01) ==
LOC: HEMC 11:21
PROVIDERS: PCP Internal Medicine; Visit Provider Internal Medicine Hematology & Oncology
DX: Z51.12 Encounter for antineoplastic immunotherapy (principal); C67.9 Malignant neoplasm of bladder, unspecified; Z87.891 Personal history of nicotine dependence; Z80.0 Family history of malignant neoplasm of digestive organs; Z84.81 Family history of carrier of genetic disease; Z15.09 Genetic susceptibility to other malignant neoplasm; D72.819 Decreased white blood cell count, unspecified; R97.20 Elevated prostate specific antigen [PSA]
CPT/HCPCS: 36415; 80053; 83735; 84443; 85025; 96413; G0463; J9271

== ENCOUNTER 2025-09-17 09:19 | Outpatient (RCR) | payer BC, OTHER, SELFPAY ==
[2025-08-27 10:03] VITALS: BP 125/86; PULSE 104; TEMP 36.2; O2SAT 96
[2025-08-27 10:06] LABS: Hematocrit 48.8 % (42.0-54.0); Hemoglobin 16.1 g/dL (14.0-18.0); Immature Granulocytes Abs Auto 0.01 10^3/uL (0.00-0.03); Immature Granulocytes Pct Auto 0.2 % (0.0-0.5); Lymphocytes Absolute Auto 1.2 10^3/uL (1.2-3.8); Mean Corpuscular HGB Conc 33.0 g/dL (29.9-35.2); Mean Corpuscular Hemoglobin 29.8 pg (25.9-34.0); Mean Corpuscular Volume 90.2 fL (80.0-94.0); Platelet Count 205 10^3/uL (150-450); Red Blood Count 5.41 10^6/uL (4.70-6.10); White Blood Count 5.2 10^3/uL (4.0-11.0)
[2025-08-27 10:28] LABS: Alanine Aminotransferase 24 U/L (16-63); Albumin Globulin Ratio 1.0; Albumin Level 3.8 g/dL (3.4-5.0); Alkaline Phosphatase 78 U/L (46-116); Anion Gap 6.4; Aspartate Amino Transferase 15 U/L (15-37); Blood Urea Nitrogen 11.0 mg/dL (7.0-18.0); Calcium 9.2 mg/dL (8.5-10.1); Carbon Dioxide 31.2 mmol/L (21.0-32.0); Chloride 107 mmol/L (98-107); Estimated GFR (African America >60 (>=60 mL/min/1.73m^2); Estimated GFR (Non-African Ame >60 (>=60 mL/min/1.73m^2); Globulin 3.9 g/dL; Glucose 129 mg/dL (74-106); Potassium 3.6 mmol/L (3.5-5.1); Sodium 141 mmol/L (136-145); Total Protein 7.7 g/dL (6.4-8.2)
[2025-08-27 10:36] LABS: Magnesium 2.1 mg/dL (1.8-2.4); TSH W/ REFLEX FT4 2.006 uIU/mL (0.358-3.740)
[2025-08-27 11:51] VITALS: BP 144/84; PULSE 83; TEMP 36.3; O2SAT 96
[2025-09-17 09:22] VITALS: BP 121/71; PULSE 95; TEMP 36.7; O2SAT 97
[2025-09-17 09:37] LABS: Hematocrit 46.2 % (42.0-54.0); Hemoglobin 15.7 g/dL (14.0-18.0); Immature Granulocytes Abs Auto 0.00 10^3/uL (0.00-0.03); Immature Granulocytes Pct Auto 0.0 % (0.0-0.5); Lymphocytes Absolute Auto 1.0 10^3/uL (1.2-3.8); Mean Corpuscular HGB Conc 34.0 g/dL (29.9-35.2); Mean Corpuscular Hemoglobin 30.0 pg (25.9-34.0); Mean Corpuscular Volume 88.2 fL (80.0-94.0); Platelet Count 187 10^3/uL (150-450); Red Blood Count 5.24 10^6/uL (4.70-6.10); White Blood Count 4.8 10^3/uL (4.0-11.0)
[2025-09-17 09:54] LABS: Alanine Aminotransferase 18 U/L (16-63); Albumin Globulin Ratio 1.0; Albumin Level 3.4 g/dL (3.4-5.0); Alkaline Phosphatase 71 U/L (46-116); Anion Gap 9.4; Aspartate Amino Transferase 15 U/L (15-37); Blood Urea Nitrogen 11.0 mg/dL (7.0-18.0); Calcium 8.8 mg/dL (8.5-10.1); Carbon Dioxide 29.4 mmol/L (21.0-32.0); Chloride 106 mmol/L (98-107); Estimated GFR (African America >60 (>=60 mL/min/1.73m^2); Estimated GFR (Non-African Ame >60 (>=60 mL/min/1.73m^2); Globulin 3.5 g/dL; Glucose 168 mg/dL (74-106); Potassium 3.8 mmol/L (3.5-5.1); Sodium 141 mmol/L (136-145); Total Protein 6.9 g/dL (6.4-8.2)
[2025-09-17 10:02] LABS: Magnesium 2.0 mg/dL (1.8-2.4); TSH W/ REFLEX FT4 1.719 uIU/mL (0.358-3.740)
--- NOTE | 2025-09-17 10:28 | PC.NURSE ---
1020: Dr. Andrade to chairside for MD visit
[2025-09-17] MEDS: 0.9 % SODIUM CHLORIDE 250 ML 10 ML IV (10:40)
[2025-09-17 11:21] VITALS: BP 128/77; PULSE 71; TEMP 36.6; O2SAT 98
== END 2025-09-25 23:59 | disposition home or self-care (01) ==
LOC: HEMC 09:19
PROVIDERS: PCP Internal Medicine; Visit Provider Internal Medicine Hematology & Oncology
DX: Z51.12 Encounter for antineoplastic immunotherapy (principal); C67.8 Malignant neoplasm of overlapping sites of bladder; R97.20 Elevated prostate specific antigen [PSA]; D72.819 Decreased white blood cell count, unspecified; Z15.09 Genetic susceptibility to other malignant neoplasm; Z84.81 Family history of carrier of genetic disease; Z80.0 Family history of malignant neoplasm of digestive organs
CPT/HCPCS: 36415; 80053; 83735; 84153; 84443; 85025; 96413; G0463; J9271

== ENCOUNTER 2025-09-17 09:30 | Outpatient (OUT) | payer BC, OTHER, SELFPAY ==
--- OUTSIDE RECORDS SUMMARY | 2025-05-28 09:15 | XMS_ITS ---
Author Organization [facility] [place] Address [address] [place] [address] Care Team Providers Care Mold Cutting Machine Operator Name Role Phone Parth García MD Primary Care Provider Unavailab Caroline Bender Unavailable [phone] REASON FOR VISIT MD Encounters Encounter Location Date Provider Diagnosis [facility] [address] [place] [phone] 05/28/2025 Caroline Hernandez Plan Of Treatment No Information Progress Notes * DALTON See SDOB:[birth year] (60 yo M)Acc No.[id number]:05/28/2025 UNLOCKED PROGRESS NOTE Progress Notes Patient: See BOOTHE :?Caroline Andrade M.D.:1965???Age:59 Y ???Sex:MaleDate:05/28/2025Phone:[phone]:[address] [place] [address] [address], [id number]:Parth García MD Subjective: * Chief Complaints: * 1 . MD. * Medical History: Objective: * Vitals: Assessment: Plan: * Treatment: * * Electronic signature of Caroline Hernandez MD, [id number] on 09/17/2025 at 09:34 AM ESTSign off status: PendingVisit Status:?PEN (Pending) * Provider: Jason Andrade M.D. Date: 0 05/28/2025 Generated for Printing/Faxing/eTransmitting on:?09/17/2025 09:34 AM EST
--- OUTSIDE RECORDS SUMMARY | 2025-05-28 10:15 | XMS_ITS ---
Author Organization [facility] [place] Address [address] [place] [address] Care Team Providers Care Glass Installer Name Role Phone Parth García MD Primary Care Provider Unavailab Caroline Bender Unavailable [phone] REASON FOR VISIT MD Encounters Encounter Location Date Provider Diagnosis [facility] [address] [place] [phone] 05/28/2025 Caroline Hernandez Plan Of Treatment No Information Progress Notes * DALTON See SDOB:[birth year] (60 yo M)Acc No.[id number]:05/28/2025 UNLOCKED PROGRESS NOTE Progress Notes Patient: See BOOTHE :?Caroline Andrade M.D.:1965???Age:59 Y ???Sex:MaleDate:05/28/2025Phone:[phone]:[address] [place] [address] [address], [id number]:Parth García MD Subjective: * Chief Complaints: * 1 . MD. * Medical History: Objective: * Vitals: Assessment: Plan: * Treatment: * * Electronic signature of Caroline Hernandez MD, [id number] on 09/17/2025 at 09:33 AM ESTSign off status: PendingVisit Status:?CANC (Cancelled) * Provider: Jason Andrade M.D. Date: 0 05/28/2025 Generated for Printing/Faxing/eTransmitting on:?09/17/2025 09:33 AM EST
--- OUTSIDE RECORDS SUMMARY | 2025-05-31 04:30 | XMS_ITS ---
Author Organization The [facility] in [place] Address [address] [facility] [place] [address] Care Team Providers Care Schedule Maker Name Role Phone Ricky JARA, Parth Primary Care Provider Unavailab Caroline Bender Unavailable [phone] REASON FOR VISIT Pembrolizumab (Keytruda) Encounters Encounter Location Date Provider Diagnosis The [facility] Oncology [address] [place] [phone] 05/31/2025 Caroline Hernandez Plan Of Treatment No Information Progress Notes * See HOFFMAN SDOB:[birth year] (60 yo M)Acc No.[id number]:05/31/2025 UNLOCKED PROGRESS NOTE Progress Note Patient: See BOOTHE :?Caroline Andrade M.D.:1965???Age:59 Y ???Sex:MaleDate:05/31/2025Phone:[phone]:[address], [facility]ITAL[facility]-[address]Qax:Parth García MD Subjective: * Chief Complaints: * 1 . Pembrolizumab (Keytruda). * Medical History: Objective: * Vitals: Assessment: Plan: * Treatment: * * Electronic signature of Caroline Hernandez MD, [id number] on 09/17/2025 at 09:33 AM ESTSign off status: PendingVisit Status:?PEN (Pending) * Provider: Jason Andrade M.D. Date: 0 05/31/2025 Generated for Printing/Faxing/eTransmitting on:?09/17/2025 09:33 AM EST
--- OUTSIDE RECORDS SUMMARY | 2025-06-25 04:30 | XMS_ITS ---
Author Organization The [facility] in [place] Address [address] [place] [address] Care Team Providers Care Element Setter Name Role Phone Ricky JARA, Parth Primary Care Provider Unavailab AJ Koehler Unavailable [phone] REASON FOR VISIT MD Encounters Encounter Location Date Provider Diagnosis The [facility] Oncology [address] [place] [phone] 06/25/2025 AJ RICO Plan Of Treatment No Information Progress Notes * See [place] SDOB:[birth year] (60 yo M)Acc No.[id number]:06/25/2025 UNLOCKED PROGRESS NOTE Progress Notes Patient: See BOOTHE :?AJ RICO M.D.:1965???Age:60 Y ???Sex:MaleDate:06/25/2025Phone:[phone]:[address] [place] [address] [address], [facility] CENTERFN-[address]Tin:Parth García MD Subjective: * Chief Complaints: * 1 . MD. * Medical History: Objective: * Vitals: Assessment: Plan: * Treatment: * * Electronic signature of AJ RICO MD on 09/17/2025 at 09:34 AM ESTSign off status: PendingVisit Status:?PEN (Pending) * Provider: Jason RICO M.D. Date: 0 06/25/2025 Generated for Printing/Faxing/eTransmitting on:?09/17/2025 09:34 AM EST
--- OUTSIDE RECORDS SUMMARY | 2025-06-25 04:45 | XMS_ITS ---
Author Organization The [facility] in [place] Address [address] [facility] [place] [address] Care Team Providers Care Live In Companion Name Role Phone Ricky JARA, Parth Primary Care Provider Unavailab AJ Koehler Unavailable [phone] REASON FOR VISIT Pembrolizumab (Keytruda) Encounters Encounter Location Date Provider Diagnosis The [facility] Oncology [address] [place] [address] 06/25/2025 AJ RICO Plan Of Treatment No Information Progress Notes * See [place] SDOB:[birth year] (60 yo M)Acc No.[id number]:06/25/2025 UNLOCKED PROGRESS NOTE Progress Note Patient: See BOOTHE :?AJ RICO M.D.:1965???Age:60 Y ???Sex:MaleDate:06/25/2025Phone:[phone]:[address] [facility] [address], [place], [place]Plz:Parth García MD Subjective: * Chief Complaints: * 1 . Pembrolizumab (Keytruda). * Medical History: Objective: * Vitals: Assessment: Plan: * Treatment: * * Electronic signature of AJ RICO MD on 09/17/2025 at 09:34 AM ESTSign off status: PendingVisit Status:?PEN (Pending) * Provider: Jason RICO M.D. Date: 0 06/25/2025 Generated for Printing/Faxing/eTransmitting on:?09/17/2025 09:34 AM EST
--- OUTSIDE RECORDS SUMMARY | 2025-07-16 05:00 | XMS_ITS ---
Author Organization The [facility] in [place] Address [address] [place] [address] Care Team Providers Care Battery Charger Tester Name Role Phone Ricky JARA, Parth Primary Care Provider Unavailab AJ Koehler Unavailable [phone] REASON FOR VISIT Pembrolizumab (Keytruda) Encounters Encounter Location Date Provider Diagnosis The [facility] Oncology [address] [place] [address] 07/16/2025 AJ RICO Plan Of Treatment No Information Progress Notes * See ROSENBERG SDOB:[birth year] (60 yo M)Acc No.[id number]:07/16/2025 UNLOCKED PROGRESS NOTE Progress Note Patient: See BOOTHE :?AJ RICO M.D.:1965???Age:60 Y ???Sex:MaleDate:07/16/2025Phone:[phone]:[address] [facility] [address], [place], [place]Xke:Parth García MD Subjective: * Chief Complaints: * 1 . Pembrolizumab (Keytruda). * Medical History: Objective: * Vitals: Assessment: Plan: * Treatment: * * Electronic signature of AJ RICO MD on 09/17/2025 at 09:35 AM ESTSign off status: PendingVisit Status:?PEN (Pending) * Provider: Jason RICO M.D. Date: Generated for Printing/Faxing/eTransmitting on:?09/17/2025 09:35 AM EST
--- OUTSIDE RECORDS SUMMARY | 2025-08-06 05:00 | XMS_ITS ---
Author Organization The [facility] in [place] Address [address] [facility] [place] [address] Care Team Providers Care Sugar Mixer Name Role Phone Ricky JARA, Parth Primary Care Provider Unavailab AJ Koehler Unavailable [phone] REASON FOR VISIT MD Encounters Encounter Location Date Provider Diagnosis The [facility] Oncology [address] [place] [address] 08/06/2025 AJ RICO Plan Of Treatment No Information Progress Notes * See HOFFMAN SDOB:[birth year] (60 yo M)Acc No.[id number]:08/06/2025 UNLOCKED PROGRESS NOTE Progress Notes Patient: See BOOTHE :?AJ RICO M.D.:1965???Age:60 Y ???Sex:MaleDate:08/06/2025Phone:[phone]:[address] [place] [address] 180, [facility]PITALVR-[address]Lrl:Parth García MD Subjective: * Chief Complaints: * 1 . MD. * Medical History: Objective: * Vitals: Assessment: Plan: * Treatment: * * Electronic signature of AJ RICO MD on 09/17/2025 at 09:34 AM ESTSign off status: PendingVisit Status:?CANC (Cancelled) * Provider: Jason RICO M.D. Date: 10/06/2024 Generated for Printing/Faxing/eTransmitting on:?09/17/2025 09:34 AM EST
--- OUTSIDE RECORDS SUMMARY | 2025-08-06 05:00 | XMS_ITS ---
Author Organization The [facility] in [place] Address [address] [facility] [place] [address] Care Team Providers Care Darkroom Worker Name Role Phone Ricky JARA, Parth Primary Care Provider Unavailab Caroline Bender Unavailable [phone] REASON FOR VISIT Pembrolizumab (Keytruda) Encounters Encounter Location Date Provider Diagnosis The [facility] Oncology [address] [place] [phone] 08/06/2025 Caroline Hernandez Plan Of Treatment No Information Progress Notes * See HOFFMAN SDOB:[birth year] (60 yo M)Acc No.[id number]:08/06/2025 UNLOCKED PROGRESS NOTE Progress Note Patient: See BOOTHE :?Caroline Andrade M.D.:1965???Age:60 Y ???Sex:MaleDate:08/06/2025Phone:[phone]:[address], [facility]-[place]-[address]Ckh:Parth García MD Subjective: * Chief Complaints: * 1 . Pembrolizumab (Keytruda). * Medical History: Objective: * Vitals: Assessment: Plan: * Treatment: * * Electronic signature of Caroline Hernandez MD, [id number] on 09/17/2025 at 09:34 AM ESTSign off status: PendingVisit Status:?PEN (Pending) * Provider: Jason Andrade M.D. Date: 10/06/2024 Generated for Printing/Faxing/eTransmitting on:?09/17/2025 09:34 AM EST
--- OUTSIDE RECORDS SUMMARY | 2025-08-06 05:15 | XMS_ITS ---
Author Organization The [facility] in [place] Address [address] [facility] [place] [address] Care Team Providers Care Yarn Cleaner Name Role Phone Ricky JARA, Parth Primary Care Provider Unavailab AJ Koehler Unavailable [phone] REASON FOR VISIT Pembrolizumab (Keytruda) Encounters Encounter Location Date Provider Diagnosis The [facility] Oncology [address] [place] [address] 08/06/2025 AJ RICO Plan Of Treatment No Information Progress Notes * See HOFFMAN SDOB:[birth year] (60 yo M)Acc No.[id number]:08/06/2025 UNLOCKED PROGRESS NOTE Progress Note Patient: See BOOTHE :?AJ RICO M.D.:1965???Age:60 Y ???Sex:MaleDate:08/06/2025Phone:[phone]:[address] [facility] [address] [address], [place], [place]Itz:Parth García MD Subjective: * Chief Complaints: * 1 . Pembrolizumab (Keytruda). * Medical History: Objective: * Vitals: Assessment: Plan: * Treatment: * * Electronic signature of AJ RICO MD on 09/17/2025 at 09:33 AM ESTSign off status: PendingVisit Status:?CANC (Cancelled) * Provider: Jason RICO M.D. Date: 10/06/2024 Generated for Printing/Faxing/eTransmitting on:?09/17/2025 09:33 AM EST
--- OUTSIDE RECORDS SUMMARY | 2025-08-06 05:45 | XMS_ITS ---
Author Organization The [facility] in [place] Address [address] [place] [address] Care Team Providers Care Party Supply Specialist Name Role Phone Parth García MD Primary Care Provider Unavailab Caroline Bender Unavailable [phone] REASON FOR VISIT MD Encounters Encounter Location Date Provider Diagnosis The [facility] Oncology [address] [place] [address] 08/06/2025 Caroline Hernandez Plan Of Treatment No Information Progress Notes * DALTON See SDOB:[birth year] (60 yo M)Acc No.[id number]:08/06/2025 UNLOCKED PROGRESS NOTE Progress Notes Patient: See BOOTHE :?Caroline Andrade M.D.:1965???Age:60 Y ???Sex:MaleDate:08/06/2025Phone:[phone]:[address] [place] [address] 180, [facility] HOSPITALMQ-[address]Lxh:Parth García MD Subjective: * Chief Complaints: * 1 . MD. * Medical History: Objective: * Vitals: Assessment: Plan: * Treatment: * * Electronic signature of Caroline Hernandez MD, [id number] on 09/17/2025 at 09:34 AM ESTSign off status: PendingVisit Status:?PEN (Pending) * Provider: Jason Andrade M.D. Date: 10/06/2024 Generated for Printing/Faxing/eTransmitting on:?09/17/2025 09:34 AM EST
--- OUTSIDE RECORDS SUMMARY | 2025-09-17 09:34 | XMS_ITS | Clinical Summary ---
Author Organization [facility] Address [facility] [place] [address] Care Team Providers Care Sand Screener Operator Name Role Phone Go Paulson MD Unavailable [phone] Ricky MANNING MD, Parth Cummins Primary Care Provider [phone] Natasha Grimes RN Unavailable [phone] Darwin Quinteros MD Unavailable [phone] Kimberlee Hoffman Unavailable Unavailable Allergies No known active allergies Medications MedicationSigDispense QuantityRefillsLast FilledStart DateEnd DateStatus alfuzosin SR (UROXATRAL) 10 mg 24 hr tablet Take 10 mg by mouth once daily.Active Active Problems ProblemNoted DateDiagnosed DateBladder tgkrww7510/19/2024 Encounters DateTypeDepartmentCare FnnxNmwawsgorrj70/03/2025Telephone Hematology/Oncology [address] [place] [address] [place] [address] Dara Palomares RN Appointmentfrom Last 3 Months Family History Medical HistoryRelationCommentsBreast CancerMotherCervical CancerMotherBreast CancerSisterCervical CancerSisterRelationStatusCommentsMotherSister Social History Tobacco UseTypesPacks/DayYears UsedDateSmoking Tobacco: FormerCigarettes Smokeless Tobacco: Current Tobacco Cessation:Ready to Q uit: Not Asked; Counseling Given: Not Answered Alcohol UseStandard Drinks/WeekCommentsNever0 (1 standard drink = 0.6 oz pure alcohol)Area Deprivation IndexAnswerDate RecordedNational Score (1-100), lower number is lower ruks648610/19/2024State Score (1-10), lower number is lower risk7 10/19/2024Data from: https://www.neighborhoodatlas.[facility]/. Last address used for protywfixnv[address] Sex and Gender InformationValueDate RecordedSex Assigned at BirthNot on fileLegal SexMale 08/27/2012 8:35 AM ESTGender IdentityNot on fileSexual OrientationNot on file Last Filed Vital Signs Vital SignReadingTime TakenCommentsBlood Rectauqn941/7302/22/2025 1:18 PM EDT Zqvwx432502/22/2025 1:18 PM XSDKufmfjqgsnu68.7 ??C (98 ??F)02/15/2025 12:54 PM EDT Respiratory Zhrl671802/22/2025 1:18 PM EDTOxygen Zvwyqpauar75%02/22/2025 1:18 PM EDTInhaled Oxygen Concentration--Aectjf45.1 kg (132 lb 7.9 oz)02/15/2025 12:54 PM IOSHtgkbp523.4 cm (5' 9.06 )02/15/2025 12:54 PM EDTBody Mass Index19.54 02/15/2025 12:54 PM EDT Plan of Treatment Health MaintenanceDue DateLast DoneCommentsAnxiety Tkhfqynom57/14/1983Depression Vsiyqqdin51/14/1983HIV Usjnlpkeo87/14/1983Hepatitis C Cbdarmbsq71/14/1983 DTaP,Tdap,Td Vaccine (1 - Tdap)1984Lipid Mrshswrow49/14/2000CT Ohdvenorudkf27/14/0344Vhewfkhicia36/14/2010Fecal Occult Blood2010 Ollywjtuecobr80/14/2010Pneumococcal Vaccine: 50+ (1 of 1 - PCV)2015RSV Vaccine (1 - Risk 50-74 years 1-dose series)2015Shingrix Vaccine (1 of 2) 2015Prostate Cancer Screening Bnacghqqem55Covid-19 Vaccine (1 - season)2025Influenza Vaccine (#1)5Cologuard (FIT-DNA)olorectal Cancer Fqurtrsto36/05/2026Diabetes Tpkqomcpr94/23/254205/, 02/01/2025, 10/26/2024, Additional history exists Procedures Procedure NamePriorityDate/TimeAssociated DiagnosisCommentsCOMPREHENSIVE METABOLIC SJBMYNottsbd87/23/2025 12:43 PM EDT Malignant neoplasm of urinary bladder, unspecified site (HCC) Dysuria from Last 3 Months or Most Recently Relevant to Health Maintenance Results * (ABNORMAL) COMPREHENSIVE METABOLIC PANEL (02/15/2025 12:43 PM EDT)Component ValueRef RangeTest MethodAnalysis TimePerformed AtPathologist Signature Protein, Total6.66.3 - 8.0 g/dL02/15/2025 1:35 PM EDTNORTBEA[facility] LABAlbumin4.13.9 - 4.9 g/dL02/15/2025 1:35 PM EDTHIGHL[facility] LABCalcium, Total9.58.5 - 10.2 mg/dL02/15/2025 1:35 PM EDTNORTBEAUMONT [facility]ITAL LABBilirubin, Total0.50.2 - 1.3 mg/dL 02/15/2025 1:35 PM EDTNOPLEAS[facility] LABAlkaline Inclwcvhquc4039 - 113 U/L02/15/2025 1:35 PM [facility] ENMFOR59(L)14 - 40 U/L02/15/2025 1:35 PM EDTNOPLEASANT VALLEY [facility]ITAL LABALT8(L)10 - 54 U/L02/15/2025 1:35 PM [facility] QGOBxdvpaq546(H)74 - 99 mg/dL02/15/2025 1:35 PM EDTHIGHLAND-CLARKSBURG [facility] LABComment: The [place] Diabetes Association (ADA) provides guidance for cutoff values for fasting glucose andrandom glucose. The ADA defines fasting as no [...] Standards of Medical Care in Diabetes 2016, [place] Diabetes Association. Diabetes Care. 2016.39(Suppl 1). DBN918 - 24 mg/dL02/15/2025 1:35 PM [facility] LAB Creatinine0.990.73 - 1.22 mg/dL02/15/2025 1:35 PM [facility] ZWWPcqnks019215 - 144 mmol/L02/15/2025 1:35 PM [facility] LABPotassium4.23.7 - 5.1 mmol/L02/15/2025 1:35 PM [facility] QIDEmxcmfyl17814 - 107 mmol/L02/15/2025 1:35 PM EDT [facility] LBCGB09251 - 30 mmol/L02/15/2025 1:35 PM EDT [facility] LABAnion Yls304 - 15 mmol/L02/15/2025 1:35 PM [facility] LABEstimated Glomerular Filtration Rate88 >=60 mL/min/1.73m 02/15/2025 1:35 PM [facility] LABComment:Estimated Glomerular Filtration Rate (eGFR) is calculated using the 2020 CKD-EPI creatinine equation. This equation utilizes serum creatinine, sex, and age as parameters. The creatinine assay has traceable calibration to isotope dilution- mass spectrometry. Refer to KDIGO guidelines for clinical interpretation. In patients with unstable renal function, e.g. those with acute kidney injury, the eGFRmay not accurately reflect actual GFR.Specimen (Source)Anatomical Location / LateralityCollection Method / VolumeCollection TimeReceived TimeBloodBLOOD SPECIMEN / UnknownVenipuncture / Ywggebg6102/15/2025 12:43 PM EDT02/15/2025 12:43 PM EDT Narrative Authorizing ProviderResult TypeResult StatusHolly Jude RUCKERN.CNPLABORATORY Final ResultPerforming OrganizationAddressCity/State/ZIP CodePhone Number [facility] [address] [place] [address] from Last 3 Months or Most Recently Relevant to Health Maintenance Insurance Care Teams Team MemberRelationshipSpecialtyStart DateEnd Date Parth García II, MD [address] [place] [address] PCP - GeneralInternal Medicine10/26/24 Go Paulson MD Urolog10/12/24 Natasha Grimes RN [address] [place] [address] Specialty Care CoordinatorHematology/Oncology10/31/24 Darwin Quinteros MD [address] [place] [address] [place] [address] PhysicianHematology/Oncology10/31/24 Kimberlee Hoffman LSW Social Worker11/06/24
--- OUTSIDE RECORDS SUMMARY | 2025-09-17 09:34 | XMS_ITS ---
Author Organization [facility] Address [facility] [place] [id number] Care Team Providers Care Junior Data Analyst Name Role Phone Go Paulson MD Unavailable Ricky MANNING MD, Parth Cummins Primary Care Provider [phone] Natasha Grimes RN Unavailable [phone] Darwin Quinteros MD Unavailable [phone] Kimberlee Rosenberg Unavailable Unavailable Active Problems ProblemNoted DateDiagnosed DateBladder lmgzej4010/19/2024 Current Treatment and Therapy Plans No current plan information found. Past Treatment and Therapy Plans Plan NameStart DateDiscontinue DateTreatment MedicationsDiscontinue ReasonPlan ProviderBLADDER INSTILLATION/* bcg vaccine for bladder irrigation Darwin Godoy MDBLADDER INSTILLATION/No medications scheduled.Darwin Godoy MD
--- OUTSIDE RECORDS SUMMARY | 2025-09-17 09:34 | XMS_ITS | Patient Health Record ---
Author Organization [facility] in [place] Address [address] [place] [address] Care Team Providers Care Blade Grinder Name Role Phone Parth García MD Primary Care Provider Unavailab le zzChawla, Caroline Unavailable [phone] TRISHA, CAROLINE Unavailable [phone] Results Component Value Reference Range Notes CBC AUTO DIFF (Not yet revie wed by provider) Interpretation: Performing Lab: Notes/Report: [facility] , White Blood Count 4.5 4.0-11.0 10 3/uL Red Blood Count4.754.70-6.10 10 6/zIOqsvnfxuqg04.414.0-18.0 g/aPMdmqfnqgsx43.7 42.0-54.0 %Mean Corpuscular Gdmqqw50.880.0-94.0 fLMean Corpuscular Hemoglobin 30.325.9-34.0 pgMean Corpuscular HGB Conc34.529.9-35.2 g/dLRed Cell Distribution Width12.111.0-15.0 %Platelet Qjjph582788-223 10 3/uLMean Platelet Volume9.89.5- 13.5 fLNeutrophils Percent Auto70.643.0-75.0 %Lymphocytes Percent Auto22.620.5- 60.0 %Monocytes Percent Auto5.51.7-12.0 %Eosinophils Percent Auto0.40.9-7.0 % Basophils Percent Auto0.70.2-2.0 %Immature Granulocytes Pct Auto0.20.0-0.5 % Neutrophils Absolute Auto3.21.4-6.5 10 3/uLLymphocytes Absolute Auto1.01.2-3.8 10 3/uLMonocytes Absolute Auto0.30.3-0.8 10 3/uLEosinophils Absolute Auto0.00.0- 0.7 10 3/uLBasophils Absolute Auto0.00.0-0.1 10 3/uLImmature Granulocytes Abs Auto0.010.00-0.03 10 3/uLPerforming Lab:see noteML - [facility] LBCBC AUTO DIFF (Not yet reviewed by provider) Interpretation: Performing Lab: Notes/Report: [facility] ,White Blood Count4.94.0-11.0 10 3/uLRed Blood Count4.824.70-6.10 10 6/uL Capocwizym80.514.0-18.0 g/xKKlpdfiomzf26.542.0-54.0 %Mean Corpuscular Qdifob08.2 80.0-94.0 fLMean Corpuscular Rldrgixcvp89.125.9-34.0 pgMean Corpuscular HGB Conc 34.129.9-35.2 g/dLRed Cell Distribution Width12.211.0-15.0 %Platelet Xfoic223 150-450 10 3/uLMean Platelet Volume9.39.5-13.5 fLNeutrophils Percent Auto71.6 43.0-75.0 %Lymphocytes Percent Auto19.620.5-60.0 %Monocytes Percent Auto8.21.7- 12.0 %Eosinophils Percent Auto0.00.9-7.0 %Basophils Percent Auto0.40.2-2.0 % Immature Granulocytes Pct Auto0.20.0-0.5 %Neutrophils Absolute Auto3.51.4-6.5 10 3/uLLymphocytes Absolute Auto1.01.2-3.8 10 3/uLMonocytes Absolute Auto0.40.3-0.8 10 3/uLEosinophils Absolute Auto0.00.0-0.7 10 3/uLBasophils Absolute Auto0.00.0- 0.1 10 3/uLImmature Granulocytes Abs Auto0.010.00-0.03 10 3/uLPerforming Lab:see noteML - [facility] LBMAGNESIUM (Not yet reviewed by provider) Interpretation: Performing Lab: Notes/Report: [facility] ,Magnesium2.11.8-2.4 mg/dLPerforming Lab:see note - [facility] LB PROF 14(COMP METB) (Not yet reviewed by provider) Interpretation: Performing Lab: Notes/Report: [facility] ,Cczaat466385-536 mmol/LPotassium4.33.5-5.1 mmol/KDpyrvupn29101-770 mmol/LCarbon Vewttad66.421.0-32.0 mmol/LAnion Gap9.6Ygudlui3095-729 mg/dLBlood Urea Nitrogen 15.07.0-18.0 mg/dLCreatinine0.870.70-1.30 mg/dLEstimated GFR ( [place]>60 >=60 mL/min/1.73m 2Estimated GFR (Non- [facility]>60>=60 mL/min/1.73m 2BUN Creatinine Ratio17.3Rypmsfl3.88.5-10.1 mg/dLBilirubin Total0.40.2-1.0 mg/dL Aspartate Amino Xatbgyswpqe6201-95 U/LAlanine Oamquuaihsebywgm8535-23 U/L Alkaline Upjjavxtpzi1928-519 U/LTotal Protein7.16.4-8.2 g/dLAlbumin Level3.63.4- 5.0 g/dLGlobulin3.5Albumin Globulin Ratio1.0Performing Lab:see note - [facility] LBTSH W/ REFLEX FT4 (Not yet reviewed by provider) Interpretation: Performing Lab: Notes/Report: [facility] ,TSH W/ REFLEX FT42.3900.358-3.740 uIU/mLPerforming Lab:see note - [facility] LBCBC AUTO DIFF (Not yet reviewed by provider) Interpretation: Performing Lab: Notes/Report: [facility] ,White Blood Count5.44.0-11.0 10 3/uLRed Blood Count5.044.70-6.10 10 6/uL Uhrahmaumu90.214.0-18.0 g/yJGmvwimcxkh64.542.0-54.0 %Mean Corpuscular Jiidcl33.3 80.0-94.0 fLMean Corpuscular Nmwuiykagn92.225.9-34.0 pgMean Corpuscular HGB Conc 34.929.9-35.2 g/dLRed Cell Distribution Width12.411.0-15.0 %Platelet Aflpj465 150-450 10 3/uLMean Platelet Volume9.39.5-13.5 fLNeutrophils Percent Auto74.1 43.0-75.0 %Lymphocytes Percent Auto17.520.5-60.0 %Monocytes Percent Auto7.61.7- 12.0 %Eosinophils Percent Auto0.00.9-7.0 %Basophils Percent Auto0.60.2-2.0 % Immature Granulocytes Pct Auto0.20.0-0.5 %Neutrophils Absolute Auto4.01.4-6.5 10 3/uLLymphocytes Absolute Auto0.91.2-3.8 10 3/uLMonocytes Absolute Auto0.40.3-0.8 10 3/uLEosinophils Absolute Auto0.00.0-0.7 10 3/uLBasophils Absolute Auto0.00.0- 0.1 10 3/uLImmature Granulocytes Abs Auto0.010.00-0.03 10 3/uLPerforming Lab:see noteML - [facility] LBMAGNESIUM (Not yet reviewed by provider) Interpretation: Performing Lab: Notes/Report: [facility] ,Magnesium1.81.8-2.4 mg/dLPerforming Lab:see note - [facility] LB PROF 14(COMP METB) (Not yet reviewed by provider) Interpretation: Performing Lab: Notes/Report: [facility] ,Tlthut314064-355 mmol/LPotassium4.13.5-5.1 mmol/BHasogmzf82811-153 mmol/LCarbon Bqghfch85.721.0-32.0 mmol/LAnion Gap12.6Oygktvp7693-388 mg/dLBlood Urea Nitrogen 16.07.0-18.0 mg/dLCreatinine1.110.70-1.30 mg/dLEstimated GFR ( [place]>60 >=60 mL/min/1.73m 2Estimated GFR (Non- [facility]>60>=60 mL/min/1.73m 2BUN Creatinine Ratio14.3Ahzdvif7.08.5-10.1 mg/dLBilirubin Total0.60.2-1.0 mg/dL Aspartate Amino Bzholsccnfy2665-04 U/LAlanine Mggohchuollxwvjj3402-47 U/L Alkaline Yyjegnzzigo2292-118 U/LTotal Protein7.76.4-8.2 g/dLAlbumin Level3.73.4- 5.0 g/dLGlobulin4.0Albumin Globulin Ratio0.9Performing Lab:see noteML - [facility] LBTSH W/ REFLEX FT4 (Not yet reviewed by provider) Interpretation: Performing Lab: Notes/Report: [facility] ,TSH W/ REFLEX FT42.3750.358-3.740 uIU/mLPerforming Lab:see noteML - [facility] LBCBC AUTO DIFF (Not yet reviewed by provider) Interpretation: Performing Lab: Notes/Report: [facility] ,White Blood Count4.94.0-11.0 10 3/uLRed Blood Count5.004.70-6.10 10 6/uL Xjhnaplylb63.014.0-18.0 g/wKXtngypjpfs44.342.0-54.0 %Mean Corpuscular Qwioqa90.6 80.0-94.0 fLMean Corpuscular Xhkqnckuen37.025.9-34.0 pgMean Corpuscular HGB Conc 34.629.9-35.2 g/dLRed Cell Distribution Width12.511.0-15.0 %Platelet Kjozx852 150-450 10 3/uLMean Platelet Volume9.59.5-13.5 fLNeutrophils Percent Auto70.8 43.0-75.0 %Lymphocytes Percent Auto20.220.5-60.0 %Monocytes Percent Auto8.41.7- 12.0 %Eosinophils Percent Auto0.00.9-7.0 %Basophils Percent Auto0.40.2-2.0 % Immature Granulocytes Pct Auto0.20.0-0.5 %Neutrophils Absolute Auto3.41.4-6.5 10 3/uLLymphocytes Absolute Auto1.01.2-3.8 10 3/uLMonocytes Absolute Auto0.40.3-0.8 10 3/uLEosinophils Absolute Auto0.00.0-0.7 10 3/uLBasophils Absolute Auto0.00.0- 0.1 10 3/uLImmature Granulocytes Abs Auto0.010.00-0.03 10 3/uLPerforming Lab:see noteML - [facility] LBMAGNESIUM (Not yet reviewed by provider) Interpretation: Performing Lab: Notes/Report: [facility] ,Magnesium1.91.8-2.4 mg/dLPerforming Lab:see note - [facility] LB PROF 14(COMP METB) (Not yet reviewed by provider) Interpretation: Performing Lab: Notes/Report: [facility] ,Zpbduu582585-459 mmol/LPotassium4.03.5-5.1 mmol/KOuxyzhks37879-465 mmol/LCarbon Lgtazeh97.421.0-32.0 mmol/LAnion Gap12.0Ijyhxlk3151-241 mg/dLBlood Urea Nitrogen 14.07.0-18.0 mg/dLCreatinine1.000.70-1.30 mg/dLEstimated GFR ( [facility]>60 >=60 mL/min/1.73m 2Estimated GFR (Non- [facility]>60>=60 mL/min/1.73m 2BUN Creatinine Ratio14.9Yvtcbju1.78.5-10.1 mg/dLBilirubin Total0.50.2-1.0 mg/dL Aspartate Amino Jirmlxpinxy7427-63 U/LAlanine Odskmqgbhznsexti4594-89 U/L Alkaline Zjsekrnvoza8206-622 U/LTotal Protein7.36.4-8.2 g/dLAlbumin Level3.63.4- 5.0 g/dLGlobulin3.7Albumin Globulin Ratio1.0Performing Lab:see note - [facility] LBTSH W/ REFLEX FT4 (Not yet reviewed by provider) Interpretation: Performing Lab: Notes/Report: [facility] ,TSH W/ REFLEX FT42.2210.358-3.740 uIU/mLPerforming Lab:see note - [facility] LBCBC AUTO DIFF (Not yet reviewed by provider) Interpretation: Performing Lab: Notes/Report: [facility] ,White Blood Count4.84.0-11.0 10 3/uLRed Blood Count4.904.70-6.10 10 6/uL Etzyofkuoi08.914.0-18.0 g/uJAnpylxkgjl17.342.0-54.0 %Mean Corpuscular Abnbio84.4 80.0-94.0 fLMean Corpuscular Rtjtxsuctd09.425.9-34.0 pgMean Corpuscular HGB Conc 34.429.9-35.2 g/dLRed Cell Distribution Width12.611.0-15.0 %Platelet Qeruk995 150-450 10 3/uLMean Platelet Volume9.49.5-13.5 fLNeutrophils Percent Auto68.0 43.0-75.0 %Lymphocytes Percent Auto23.020.5-60.0 %Monocytes Percent Auto8.41.7- 12.0 %Eosinophils Percent Auto0.00.9-7.0 %Basophils Percent Auto0.40.2-2.0 % Immature Granulocytes Pct Auto0.20.0-0.5 %Neutrophils Absolute Auto3.31.4-6.5 10 3/uLLymphocytes Absolute Auto1.11.2-3.8 10 3/uLMonocytes Absolute Auto0.40.3-0.8 10 3/uLEosinophils Absolute Auto0.00.0-0.7 10 3/uLBasophils Absolute Auto0.00.0- 0.1 10 3/uLImmature Granulocytes Abs Auto0.010.00-0.03 10 3/uLPerforming Lab:see noteML - [facility] LBMAGNESIUM (Not yet reviewed by provider) Interpretation: Performing Lab: Notes/Report: [facility] ,Magnesium2.11.8-2.4 mg/dLPerforming Lab:see noteML - [facility] LB TSH W/ REFLEX FT4 (Not yet reviewed by provider) Interpretation: Performing Lab: Notes/Report: [facility] ,TSH W/ REFLEX FT42.7580.358-3.740 uIU/mLPerforming Lab:see noteML - [facility] LBCBC AUTO DIFF (Not yet reviewed by provider) Interpretation: Performing Lab: Notes/Report: [facility] ,White Blood Count5.94.0-11.0 10 3/uLRed Blood Count4.984.70-6.10 10 6/uL Abjelkdmle44.914.0-18.0 g/gCCulrrlqxqe54.442.0-54.0 %Mean Corpuscular Mbjyzg84.2 80.0-94.0 fLMean Corpuscular Nfrxotltwh80.925.9-34.0 pgMean Corpuscular HGB Conc 33.629.9-35.2 g/dLRed Cell Distribution Width12.311.0-15.0 %Platelet Cluhn045 150-450 10 3/uLMean Platelet Volume9.09.5-13.5 fLNeutrophils Percent Auto71.2 43.0-75.0 %Lymphocytes Percent Auto20.120.5-60.0 %Monocytes Percent Auto8.21.7- 12.0 %Eosinophils Percent Auto0.00.9-7.0 %Basophils Percent Auto0.30.2-2.0 % Immature Granulocytes Pct Auto0.20.0-0.5 %Neutrophils Absolute Auto4.21.4-6.5 10 3/uLLymphocytes Absolute Auto1.21.2-3.8 10 3/uLMonocytes Absolute Auto0.50.3-0.8 10 3/uLEosinophils Absolute Auto0.00.0-0.7 10 3/uLBasophils Absolute Auto0.00.0- 0.1 10 3/uLImmature Granulocytes Abs Auto0.010.00-0.03 10 3/uLPerforming Lab:see noteML - [facility] LBMAGNESIUM (Not yet reviewed by provider) Interpretation: Performing Lab: Notes/Report: [facility] ,Magnesium2.11.8-2.4 mg/dLPerforming Lab:see noteML - [facility] LB PROF 14(COMP METB) (Not yet reviewed by provider) Interpretation: Performing Lab: Notes/Report: [facility] ,Vrsbhm060117-391 mmol/LPotassium3.73.5-5.1 mmol/QHxrcsgor25201-635 mmol/LCarbon Qnodash32.221.0-32.0 mmol/LAnion Gap14.8Twmdtuy90926-816 mg/dLBlood Urea Guvbpufc19.07.0-18.0 mg/dLCreatinine0.960.70-1.30 mg/dLEstimated GFR ( [facility]>60>=60 mL/min/1.73m 2Estimated GFR (Non- [facility]>60>=60 mL/min/1.73m 2BUN Creatinine Ratio14.8Xhuylvc8.88.5-10.1 mg/dLBilirubin Total0.60.2-1.0 mg/dL Aspartate Amino Ymjktocnuwx6542-90 U/LAlanine Gijhmzgpkmyzemtu0843-43 U/L Alkaline Gmhrejlbzyc3748-834 U/LTotal Protein7.46.4-8.2 g/dLAlbumin Level3.63.4- 5.0 g/dLGlobulin3.8Albumin Globulin Ratio0.9Performing Lab:see noteML - [facility] LBTSH W/ REFLEX FT4 (Not yet reviewed by provider) Interpretation: Performing Lab: Notes/Report: [facility] ,TSH W/ REFLEX FT41.9010.358-3.740 uIU/mLPerforming Lab:see noteML - [facility] LBPROF 14(COMP METB) (Not yet reviewed by provider) Interpretation: Performing Lab: Notes/Report: [facility] ,Cebkgk826696-446 mmol/LPotassium3.73.5-5.1 mmol/HZctlefsi17021-683 mmol/LCarbon Neuqshd55.221.0-32.0 mmol/LAnion Gap10.0Tjqhyeq96236-398 mg/dLBlood Urea Sgzvfdhi46.07.0-18.0 mg/dLCreatinine0.910.70-1.30 mg/dLEstimated GFR ( [place]>60>=60 mL/min/1.73m 2Estimated GFR (Non- [facility]>60>=60 mL/min/1.73m 2BUN Creatinine Ratio14.4Qgqsvrm2.68.5-10.1 mg/dLBilirubin Total0.50.2-1.0 mg/dL Aspartate Amino Sprbqmdalze6482-09 U/LAlanine Jixdohtkhlbczrbj0261-69 U/L Alkaline Nwpxjqzowqp3932-874 U/LTotal Protein7.06.4-8.2 g/dLAlbumin Level3.33.4- 5.0 g/dLGlobulin3.7Albumin Globulin Ratio0.9Performing Lab:see noteML - [facility] LBTSH W/ REFLEX FT4 (Not yet reviewed by provider) Interpretation: Performing Lab: Notes/Report: [facility] ,TSH W/ REFLEX FT41.7150.358-3.740 uIU/mLPerforming Lab:see noteML - [facility] LBPROF 14(COMP METB) (Not yet reviewed by provider) Interpretation: Performing Lab: Notes/Report: [facility] ,Ixlitk088295-109 mmol/LPotassium3.83.5-5.1 mmol/SPnrzuchx18521-139 mmol/LCarbon Vditsqg26.721.0-32.0 mmol/LAnion Gap14.2Byzwhwo55250-266 mg/dLBlood Urea Sznhnjdg38.07.0-18.0 mg/dLCreatinine1.010.70-1.30 mg/dLEstimated GFR ( [place]>60>=60 mL/min/1.73m 2Estimated GFR (Non- [facility]>60>=60 mL/min/1.73m 2BUN Creatinine Ratio18.8Uxzkrro0.88.5-10.1 mg/dLBilirubin Total0.40.2-1.0 mg/dL Aspartate Amino Owczyhqyjuq0785-59 U/LAlanine Jguzzyvuasnwbtbr2655-87 U/L Alkaline Yzxnqcdxwjb9671-433 U/LTotal Protein6.96.4-8.2 g/dLAlbumin Level3.63.4- 5.0 g/dLGlobulin3.3Albumin Globulin Ratio1.1Performing Lab:see noteML - [facility] LBMAGNESIUM (Not yet reviewed by provider) Interpretation: Performing Lab: Notes/Report: [facility] ,Magnesium1.91.8-2.4 mg/dLPerforming Lab:see noteML - [facility] LB Reason For Referral No Information Encounters Encounter Location Date Provider Diagnosis [facility] On[facility] [address] [place] [address] [facility] [address] [place] [facility] [place] [address]/[facility] [address] [place] [facility] [place] [address]/[facility] [address] [place] [facility] [place] [address]/[facility] [address] [place] [facility] [address]/[facility] [address] [place] [facility] [place] [address]/[facility] [address] [place] [facility] [place] [address] 03/19/2025[facility] [address] [place] [facility] [address]/[facility] [address] [place] [facility] [place] [address]/[facility] [address] [place] [facility] [place] [address]/[facility] [address] [place] [facility] [address]/07[facility] P[facility] Test Test Name Order Date CBC AUTO DIFF 04/16/2025 CBC AUTO DIFF 05/10/2025 CBC AUTO DIFF 05/24/2025 CBC AUTO DIFF 05/31/2025 CBC AUTO DIFF 06/25/2025 CBC AUTO DIFF 07/16/2025 MAGNESIUM 07/16/2025 MAGNESIUM 06/25/2025 MAGNESIUM 05/31/2025 MAGNESIUM 05/24/2025 MAGNESIUM 05/10/2025 MAGNESIUM 04/16/2025 PROF 14(COMP METB) 04/16/2025 PROF 14(COMP METB) 05/10/2025 PROF 14(COMP METB) 05/24/2025 PROF 14(COMP METB) 05/31/2025 PROF 14(COMP METB) 06/25/2025 PROF 14(COMP METB) 07/16/2025 TSH W/ REFLEX FT4 07/16/2025 TSH W/ REFLEX FT4 06/25/2025 TSH W/ REFLEX FT4 05/31/2025 TSH W/ REFLEX FT4 05/24/2025 TSH W/ REFLEX FT4 05/10/2025 TSH W/ REFLEX FT4 04/16/2025 Insurance Providers Payer Name Payer Address Payer Phone Subscriber Number Group Number Insured Name Patient Relationship to Insured Coverage Start Date Coverage End Date [facility] [address] [place] [address] [id number] Rubin Rosenberg - [facility] the [facility] [address] [address] [place] [id number], MichaelSelf - patient is the insured
--- OUTSIDE RECORDS SUMMARY | 2025-09-17 09:35 | XMS_ITS | Clinical Summary ---
Author Organization [facility] Address [address], [address] [place] [address] Care Team Providers Care Machine Hose Cutter Name Role Phone Parth García MD Primary Care Provider [phone] Allergies No known active allergies Medications No known medications Active Problems ProblemNoted DateDiagnosed DateCholecystitis with prgpsnkbfavqti70/21/2019 Family History RelationNameStatusCommentsChild 1Step-ChildAliveChild 2Step-ChildAliveChild 3 Step-ChildAliveFatherDeceasedMaternal GrandfatherDeceasedMaternal Grandmother DeceasedMotherAlivePaternal GrandfatherDeceasedPaternal GrandmotherDeceased Sister 1AliveSister 2AliveSister 3Alive Social History Tobacco UseTypesPacks/DayYears UsedDateSmoking Tobacco: FormerCigarettes Smokeless Tobacco: NeverAlcohol UseStandard Drinks/WeekCommentsYes0 (1 standard drink = 0.6 oz pure alcohol)socialSex and Gender InformationValueDate Recorded Sex Assigned at BirthNot on fileLegal KfiNcmn4711/05/2012 10:54 AM ESTGender IdentityNot on fileSexual OrientationNot on file Last Filed Vital Signs Vital SignReadingTime TakenCommentsBlood Cdvnjxie067/8508 2:28 PM EDT Trxuk8124 2:28 PM GLWOeknasshowa23.2 ??C (97.2 ??F)05/16/2019 11:15 AM EDTRespiratory Zpeb0868 2:28 PM EDTOxygen Nwogxgdaqo58%05/16/2019 11:50 AM EDTInhaled Oxygen Concentration--Inppuu96.2 kg (124 lb)05/22/2019 2:28 PM EDT Auraqm418.8 cm (5' 10 )05/22/2019 2:28 PM EDTBody Mass Index17.7905/22/2019 2:28 PM EDT Plan of Treatment Not on file Insurance Advance Directives * Full Code (Latest Code Status on File) Date ActivatedDate InactivatedComments05/16/2019 10:02 AM05/16/2019 2:14 PM * Full Code Date ActivatedDate InactivatedComments05/16/2019 6:22 AM05/16/2019 10:02 AM Care Teams Team MemberRelationshipSpecialtyStart DateEnd Date Parth García MD PCP - GeneralInternal Medicine04/28/19
--- OUTSIDE RECORDS SUMMARY | 2025-09-17 09:35 | XMS_ITS | Clinical Summary ---
Author Organization [employer] Address [facility] [address] [place] [address] Care Team Providers Care Director Of Early Childhood Name Role Phone Parth García MD Primary Care Provider Social History Tobacco UseTypesPacks/DayYears UsedDateSmoking Tobacco: Never AssessedChildcare AnswerDate UkebxqgnPbpwekelbPtsaqpl69/12/2019EmploymentAnswerDate Recorded OjmxyjdmtjPwrgkqy41/12/2019Purpose - LifeAnswerDate RecordedPurpose and direction in leukFhakpar76/11/2021Sex and Gender InformationValueDate Recorded Sex Assigned at BirthNot on fileLegal JyqFgwx1005/01/2015 11:47 AM EDTGender IdentityNot on fileSexual OrientationNot on file Plan of Treatment Health MaintenanceDue DateLast DoneCommentsDepression Kosfsfcbn19/14/1977Tobacco Ovrxyecgb69/14/1977Adult BMI Yjjgjmebv16/14/1983DTaP,Tdap and Td Vaccines (1 - Tdap)1984Zoster (Shingles) Vaccine (1 of 2)2015Influenza Vaccine 05/27/2025RSV ( or age 60+ yrs) (1 - 1-dose 75+ series)2040 [employer] Not on file Insurance * Guarantor: See RosenbergAccount TypeRelation to PatientDate of PhoneBilling AddressPersonal/SgpykzXhxi1965 [facility] [place] [address] Care Teams Team MemberRelationshipSpecialtyStart DateEnd Date Parth García MD [address] [address] PCP - GeneralInternal Medicine06/03/17
--- OUTSIDE RECORDS SUMMARY | 2025-09-17 09:35 | XMS_ITS | Clinical Summary ---
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 Name Role Phone Parth García MD Primary Care Provider [phone] Allergies No known active allergies Medications MedicationSigDispense QuantityRefillsLast FilledStart DateEnd DateStatus alfuzosin ER (Uroxatral) 10 MG 24 hr tablet Take 10 mg by mouth DailyActive Active Problems ProblemNoted DateDiagnosed DatePersonal history of bladder fnbpee2904/05/2025Low trdutp2604/05/20251952Obgsgoyeilplpto15/11/2025Elevated PSA04/05/2025Prostate wejfhidrbyh78/11/2025PH with urinary kqeayqmuzao96/26/2025Diverticulosis of colon03/21/2025Duplicated renal collecting vbfant9903/21/2025Hepatic cirrhosis 03/21/2025Mixed /26/2025Renal dyeujud6603/21/2025 Resolved Problems ProblemNoted DateDiagnosed DateResolved DateProstate ypwxud145004/05/2025 Bladder yiefry74holecystitis with mfhdtolkjslosf17/21/2019 04/05/2025 Encounters DateTypeDepartmentCare XzvdKvoxoamraqc16/02/2025linisync Result Encounter [facility] External Department Unsolicited Provider, Generic External Data 08/12/2025bstract [facility] [address] [place] [id number] Parth García MD 08/07/2025Refill [facility] [address] [place] [address] Sheldon Evangelista, RIGGER HELPER Acute internal derangement of right knee (Primary Dx)08/07/2025Telephone [facility] [address] [facility] [address] [place] [address] Karma Sol MA Nvwsgnwey23/11/2025linisync Result Encounter [facility] External Department Unsolicited Provider, Generic External Data 07/23/2025 1:30 PM EDTOffice Visit [facility] [address] [place] [phone] Kiran Sanchez PA Pre-op examination (Primary Dx)07/23/2025amboo flowsheet [facility] [address] [place] [id number] Kiran Sanchez PA 07/23/20253660Rlsooo80/27/2025bstract [facility] [address] [facility] [address] [place] [phone] Parth García MD 07/16/2025linisync Result Encounter [facility] External Department Unsolicited Provider, Generic External Data 07/04/2025bstract [facility] [address] [facility] [address] [place] [phone] Parth García MD 06/25/2025linisync Result Encounter [facility] External Department Unsolicited Provider, Generic External Data from Last 3 Months Immunizations ImmunizationAdministration DatesNext LbjGZD2405/25/2024,05/18/2024,05/11/2024, 05/04/2024,04/27/2024,04/13/2024 Family History Medical HistoryRelationNameCommentsCancerFatherCancerMotherRelationNameStatus CommentsFatherDeceasedMother Social History Tobacco UseTypesPacks/DayYears UsedDateSmoking Tobacco: BpgdxfIflvoybzhv3119510 - 03/22/2005Smokeless Tobacco: Never Tobacco Cessation:Counseling Given: Not Answered B1300 Health LiteracyAnswerDate RecordedHow often do you need to have someone help you when you read instructions, pamphlets, or other written material from your doctor or pharmacy?Never03/21/2025Humiliation, Afraid, Rape, and Kick questionnaireAnswerDate RecordedWithin the last year, have you been afraid of your partner or ex-partner?No03/21/2025Within the last year, have you been humiliated or emotionally abused in other ways by your partner or ex-partner?No 03/21/2025Within the last year, have you been kicked, hit, slapped, or otherwise physically hurt by your partner or ex-partner?No03/21/2025Within the last year, have you been raped or forced to have any kind of sexual activity by your part ner or ex-partner?No03/21/2025Social Connection and Isolation PanelAnswerDate RecordedIn a typical week, how many times do you talk on the phone with family, friends, or neighbors?More than three times a week03/21/2025How often do you get together with friends or relatives?Twice a week03/21/2025How often do you attend jainism or zoroastrian services?Patient prhaldlz38/26/2025Do you belong to any clubs or organizations such as jainism groups, unions, fraternal or athletic rhys ups, or school groups?Yes03/21/2025How often do you attend meetings of the clubs or organizations you belong to?More than 4 times per year03/21/2025re you , , , , never , or living with a partner? Ocjxpgt7203/21/2025UDIT-CAnswerDate RecordedQ1: How often do you have a drink containing alcohol?Never03/21/2025Q2: How many drinks containing alcohol do you have on a typical day when you are drinking?Patient does not drink03/21/2025Q3: How often do you have six or more drinks on one occasion?Never03/21/2025Overall Financial Resource Strain (CARDIA)AnswerDate RecordedHow hard is it for you to pay for the very basics like food, housing, medical care, and heating?Not very hard03/21/2025PHQ-2AnswerDate RecordedPatient Health Questionnaire-2 Score0 07/11/2025[facility] [place] [facility] - Occupational Stress QuestionnaireAnswerDate RecordedDo you feel stress - tense, restless, nervous, or anxious, or unable to sleep at night because yourmind is troubled all the time - these days?To some qipswg4903/21/2025Exercise Vital SignAnswerDate Recorded On average, how many days per week do you engage in moderate to strenuous exercise (like a brisk walk)?4 days03/21/2025On average, how many minutes do you engage in exercise at this level?20 min03/21/2025Hunger Vital SignAnswerDate RecordedWithin the past 12 months, you worried that your food would run out before you got the money to buymore.Never true03/21/2025Within the past 12 months, the food you bought just didn't last and you didn't have money to get more.Never true03/21/2025PRAPARE - TransportationAnswerDate RecordedIn the past 12 months, has lack of transportation kept you from medical appointments or from getting medications?No03/21/2025In the past 12 months, has lack of transportation kept you from meetings, work, or from getting things needed for daily living?No03/21/2025Housing Stability Vital SignAnswerDate RecordedIn the last 12 months, was there a time when you were not able to pay the mortgage or rent on time?No03/21/2025In the past 12 months, how many times have you moved where you were living?t any time in the past 12 months, were you homeless or living in a [place] (including now)?No03/21/2025Sex and Gender InformationValueDate RecordedSex Assigned at BirthNot on fileLegal SexMale 12/08/2022 6:46 PM EDTGender IdentityNot on fileSexual OrientationNot on file Last Filed Vital Signs Vital SignReadingTime TakenCommentsBlood Qlrmxdlw632/7404/05/2025 10:55 AM EDT Cgwoy403104/05/2025 10:55 AM EDTTemperature--Respiratory Njhk320504/05/2025 10:55 AM EDTOxygen Igwpbxyxdk23%04/05/2025 10:55 AM EDTInhaled Oxygen Concentration-- Pvyuxn67.2 kg (135 lb)07/23/2025 1:36 PM JBNZwhxxl888.8 cm (5' 10 )07/23/2025 1:36 PM EDTBody Mass Index19.371 1:36 PM EDT Plan of Treatment Health MaintenanceDue DateLast DoneCommentsCT Ifricjwspktm1965Colonoscopy 1965FIT1965FOBT1965 7685Uxojeqcuxcrmp1965Influenza Vaccine (#1)2025olorectal Cancer Cgtlyxwcn75/05/2026FIT-DNA, 11/28/2022neumococcal Vaccine: Pediatrics (0 to 5 Years) and At-Risk Patients (6 to 64 Years)Aged OutNo longer eligible based on patient's age to complete this topic Procedures Procedure NamePriorityDate/TimeAssociated DiagnosisCommentsTSH W/REFLEX T4 Iefyjgj6408/27/2025 9:58 AM EST ALL EMOFTZDVDHgzovgm68/02/2025 9:58 AM EST [facility] CMP (CMP) (FOR REMOTE [facility] USE)Ketnple3708/27/2025 9:58 AM EST ALL CBC WITH AUTO DKAORstyoxo82/02/2025 9:58 AM EST TSH W/REFLEX B6Ivnhdjf11/11/2025 11:25 AM EST ALL SAPEAUTDEMnspneb91/11/2025 11:25 AM EST [facility] CMP (CMP) (FOR REMOTE C USE)Lhlefqw8608/06/2025 11:25 AM EST ALL CBC WITH AUTO HIGIMvfknwd63/11/2025 11:25 AM EST TSH W/REFLEX V7Bmcbdws71/21/2025 9:15 AM EDT ALL GNJGLXMGXDgkwwbr82/21/2025 9:15 AM EDT [facility] CMP (CMP) (FOR REMOTE [facility] USE)Abmxmno4907/16/2025 9:15 AM EDT ALL CBC WITH AUTO HIAJWijpotc95/21/2025 9:15 AM EDT TSH W/REFLEX K8Cbtsbsh71/30/2025 9:04 AM EDT ALL ZOPABRANEVatwhal62/30/2025 9:04 AM EDT [facility] CMP (CMP) (FOR REMOTE C USE)Cmcmnlx3206/25/2025 9:04 AM EDT ALL CBC WITH AUTO QSBMLkdppnz77/30/2025 9:04 AM EDT LAB COLOGUARD?? COLON CANCER GMJURCZggqpkq57/05/2023 from Last 3 Months or Most Recently Relevant to Health Maintenance Results * TSH W/REFLEX T4 (08/27/2025 9:58 AM EST) Only the most recent of4 resultswithin the time period is included. ComponentValueRef RangeTest MethodAnalysis TimePerformed AtPathologist Signature TSH2.0060.358 - 3.740 uIU/mLTBHSpecimen (Source)Anatomical Location / Laterality Collection Method / VolumeCollection TimeReceived Time08/27/2025 9:58 AM EST 08/27/2025 10:02 AM EST Narrative CLIN[facility]YNC - 08/27/2025 10:41 AM EST Authorizing ProviderResult TypeResult StatusGeneric External Data ProviderLAB BLOOD ORDERABLESFinal ResultPerforming OrganizationAddressCity/State/ZIP Code Phone Number [facility]YFORMERLY [facility] * (ABNORMAL) [facility] CMP (CMP) (FOR REMOTE [facility] USE) (08/27/2025 9:58 AM EST) Only the most recent of4 resultswithin the time period is included. ComponentValueRef RangeTest MethodAnalysis TimePerformed AtPathologist Signature ZNSIEV134273 - 145 mmol/LTBHPOTASSIUM3.63.5 - 5.1 mmol/PYTKDTZWCMGA00741 - 107 mmol/LTBHCARBON AOPYEQP42.221.0 - 32.0 mmol/LTBHANION GAP6.7OTWFBXIVQB016(H)74 - 106 mg/dLTBHBLOOD UREA EWKMUIOL68.07.0 - 18.0 mg/dLTBHCREATININE1.000.70 - 1.30 mg/dLTBHTBH EGFR-AF VENEZUELAN>60>=60 mL/min/1.73m 2TBHTBH EGFR-NON AF VENEZUELAN>60 >=60 mL/min/1.73m 2TBHBUN CREATININE RATIO11.8BMCAFHXPZS2.28.5 - 10.1 mg/dLTBH BILIRUBIN TOTAL0.40.2 - 1.0 mg/dLTBHASPARTATE AMINO BQYKHXHTLJF7007 - 37 U/LTBH ALANINE CPGGJWAJUDBJEOOX4315 - 63 U/LTBHALKALINE RQZPAHGMZSW4814 - 116 U/LTBH TOTAL PROTEIN7.76.4 - 8.2 g/dLTBHALBUMIN LEVEL3.83.4 - 5.0 g/dLTBHGLOBULIN3.9 g/dLTBHALBUMIN GLOBULIN RATIO1.0TBHSpecimen (Source)Anatomical Location / LateralityCollection Method / VolumeCollection TimeReceived Time08/27/2025 9:58 AM EST08/27/2025 10:02 AM EST Narrative CLINISYNC - 08/27/2025 10:41 AM EST Authorizing ProviderResult TypeResult StatusGeneric External Data Provider CLINISYNCFinal ResultPerforming OrganizationAddressCity/State/ZIP CodePhone Number [facility] * ALL MAGNESIUM (08/27/2025 9:58 AM EST) Only the most recent of4 resultswithin the time period is included. ComponentValueRef RangeTest MethodAnalysis TimePerformed AtPathologist Signature MAGNESIUM2.11.8 - 2.4 mg/dLTBHSpecimen (Source)Anatomical Location / Laterality Collection Method / VolumeCollection TimeReceived Time08/27/2025 9:58 AM EST 08/27/2025 10:02 AM EST Narrative CLINISYNC - 08/27/2025 10:41 AM EST Authorizing ProviderResult TypeResult StatusGeneric External Data Provider CLINISYNCFinal ResultPerforming OrganizationAddressCity/State/ZIP CodePhone Number CLINISYNC [facility] * (ABNORMAL) ALL CBC WITH AUTO DIFF (08/27/2025 9:58 AM EST) Only the most recent of4 resultswithin the time period is included. ComponentValueRef RangeTest MethodAnalysis TimePerformed AtPathologist Signature [facility] WBC5.24.0 - 11.0 10 3/uLTBHTBH RBC5.414.70 - 6.10 10 6/uLTBHTBH HGB16.114.0 - 18.0 g/dLTBHTBH HCT48.842.0 - 54.0 %TBHTBH MCV90.280.0 - 94.0 fLTBHTBH MCH29.8 25.9 - 34.0 pgTBHTBH MCHC33.029.9 - 35.2 g/dLTBHTBH RDW11.811.0 - 15.0 %TBHTBH JCQ891253 - 450 10 3/uLTBHTBH MPV9.1(L)9.5 - 13.5 fLTBHNEUTROPHILS PERCENT AUTO 69.643.0 - 75.0 %TBHLYMPHOCYTES PERCENT AUTO23.220.5 - 60.0 %TBHMONOCYTES PERCENT AUTO6.41.7 - 12.0 %TBHTBH EO %0.0(L)0.9 - 7.0 %TBHBASOPHILS PERCENT AUTO 0.60.2 - 2.0 %TBHIMMATURE GRANULOCYTES PCT AUTO0.20.0 - 0.5 %TBHNEUTROPHILS ABSOLUTE AUTO3.61.4 - 6.5 10 3/uLTBHLYMPHOCYTES ABSOLUTE AUTO1.21.2 - 3.8 10 3/uLTBHMONOCYTES ABSOLUTE AUTO0.30.3 - 0.8 10 3/uLTBHTBH EO #0.00.0 - 0.7 10 3/uLTBHBASOPHILS ABSOLUTE AUTO0.00.0 - 0.1 10 3/uLTBHIMMATURE GRANULOCYTES ABS AUTO0.010.00 - 0.03 10 3/uLTBHSpecimen (Source)Anatomical Location / Laterality Collection Method / VolumeCollection TimeReceived Time08/27/2025 9:58 AM EST 08/27/2025 10:02 AM EST Narrative CLIN[facility]YNC - 08/27/2025 10:13 AM EST Authorizing ProviderResult TypeResult StatusGeneric External Data Provider CLINISYNCFinal ResultPerforming OrganizationAddressCity/State/ZIP CodePhone Number [facility] * Cologuard?? colon cancer screening (11/28/2022)ComponentValueRef RangeTest MethodAnalysis TimePerformed AtPathologist SignatureCOLOGUARD RESULT REPORTABLENegativeNegativeNOMS LEGACY EXTERNAL LABComment: NEGATIVE TEST RESULT. A negative Cologuard result indicates a low likelihood that a colorectal cancer (CRC) or advanced adenoma (adenomatous polyps with more advanced pre-malignant features) ??is present. The chance that a person with a negative Cologuard test has a colorectal cancer is less than 1in 1500 (negative predictive value >99.9%) or has an advanced adenoma is less than 5.3% (negative predictive value 94.7%). These data are based on a prospective cross-sectional study of 10,000individuals at average risk for colorectal cancer who were screened with both Cologuard and colonoscopy. (Jj Rai. et al, N Engl J Med 2014;370(14):7214-2864) The normal value (reference range) for this assay is negative. COLOGUARD RE-SCREENING RECOMMENDATION: Periodic colorectal cancer screening is an important part ofpreventive healthcare for asymptomatic individuals at average risk for colorectal cancer. ??Following a negative Cologuard result, the [place] [employer] and U.S. Multi-Society Task Force screening guidelines recommend a Cologuard re-screening interval of 3 years. References: [place] [employer] Guideline for Colorectal Cancer Screening: https://www.cancer.or g/cancer/dgqhw-nbrayp-iuukna/pqtsqcqxa-nfztfplln-wubrqpn/acs-recommendations.htm delilah LUCERO, Kathleen KASPER, Maira MARTINEZ, Colorectal Cancer Screening: Recommendations for Physicians and Patients from the U.S. Multi-Society Task Force on Colorectal Cancer Screening , Am J Gastroenterology 2017; 112:1665-0587. TEST DESCRIPTION: Composite algorithmic analysis of stool DNA-biomarkers with hemoglobin immunoassay. ?? Quantitative values of individual biomarkers are not reportable and are not associated with individual biomarker result reference ranges. Cologuard is intended for colorectal cancer screening ofadults of either sex, 45 years or older, [...] screened with both Cologuard and colonoscopy. (Jj Rai. et al, N Engl J Med 2014;370(14):0747-3355.) Cologuard may produce a false negative or false positive result (no colorectal cancer or precancerous polyp present at colonoscopy follow up). A negative Cologuard test result does not guarantee the absence of CRC or advanced adenoma (pre-cancer). The current Cologuard screening interval is every 3 years. ([place] [employer] and U.S. Multi-Society Task Force). Cologuard performance data in a 10,000 patient pivotal study using colonoscopy as the reference method can be accessed at the following location: www.[employer]st[employer].com.ColosseoEAS/results. Additional description of the Cologuard test process, warnings and precautions can be found at www.cologuard.com. Specimen (Source)Anatomical Location / LateralityCollection Method / Volume Collection TimeReceived Time11/28/2022 Narrative Authorizing ProviderResult TypeResult StatusDanitha CHAVEZ MOLECULAR DIAGNOSTICS ORDERABLESFinal ResultPerforming OrganizationAddressCity/State/ZIP CodePhone Number [facility] from Last 3 Months or Most Recently Relevant to Health Maintenance Insurance Care Teams Team MemberRelationshipSpecialtyStart DateEnd Date Parth García MD [address] [facility] [address] [place] [address] PCP - GeneralInternal Medicine04/16/25
[2025-09-17 15:37] LABS: Prostate Specific Antigen Dx 2.74 ng/mL (<=4.00)
== END 2025-09-17 09:31 | disposition home or self-care (01) ==
LOC: LAB 09:31
PROVIDERS: PCP Internal Medicine; Visit Provider Urology
DX: R97.20 Elevated prostate specific antigen [PSA] (principal)
CPT/HCPCS: 84153